=== PATIENT | female | born 1975 | race Hispanic/Latino ===

== ENCOUNTER 2017-06-29 21:16 | Emergency (ER) | payer OTHER, SELFPAY ==
[2017-06-29 21:16] VITALS: BP 141/64; PULSE 87; RESP 14; TEMP 36.6; O2SAT 96; BMI 41.1
--- NOTE | 2017-06-29 21:37 | CT_ITS ---
STUDY: CT ABDOMEN AND PELVIS WITH CONTRAST REASON FOR EXAM: Female, 41 years old. Sharp pain RADIATION DOSAGE (If Supplied By Facility): CTDIvol = ( 15.00 ) mGy, DLP = ( 1305.67 ) mGycm TECHNIQUE: Transaxial images were obtained from the dome of the diaphragm to the symphysis pubis without oral contrast. 100ML ml of Isovue 300 contrast was administered. Sagittal and coronal images were reconstructed. Individualized dose optimization techniques were used for this CT. COMPARISON: April 07, 2015. FINDINGS: The visualized lung bases are unremarkable. The visualized portions of the heart are within normal limits. Normal liver. Possible cholelithiasis. No significant dilatation of extrahepatic biliary system. Normal spleen. Normal pancreas. Normal bilateral adrenal glands. Normal right kidney. Probable parapelvic cysts in the left kidney. Normal visualized stomach. Normal small intestine. Normal colon. The appendix is visualized and appears normal. Normal abdominal aorta. Normal inferior vena cava. Normal retroperitoneum. Normal urinary bladder. Normal uterus. There is a 2.6 cm lipomatous nodule in the left lower pelvis mesentery. Normal abdominal wall. Normal osseous structures. CT/Abdomen/Pelvis W IV Cont ONLY IMPRESSION: Possible cholelithiasis. Parapelvic left renal cysts are suspected. Small lipomatous nodule in the left lower pelvis mesentery. Electronically Signed: Socrates Addison DO at 23:16 EDT Tel [phone], Service support ,
[2017-06-29] MEDS: Ketorolac 30 MG/ML Syringe IV (21:58)
[2017-06-29 21:59] LABS: Bacteria 0 SEEN /hpf (None Seen); Red Blood Cells-Urine 0 SEEN /hpf (0-5)
[2017-06-29 22:01] LABS: Color, Urine Yellow (Yellow); Glucose, Dipstick Normal (Normal); Ketone-Dipstick 5 mg/dl (Negative); Leukocyte Esterase-Dipstick 25 /ul (Negative); Nitrite-Dipstick Negative (Negative); Occult Blood-Urine 25 /ul (Negative); Protein-Dipstick 15 mg/dl (Negative); Urine Bilirubin Dipstick Negative (Negative); Urine Clarity Sl. Cloudy (Clear); Urine Urobilinogen 1 mg/dl (Normal)
[2017-06-29 22:11] LABS: Absolute Lymphocyte Count 2.48 X10^3/ul (0.83-4.51); Absolute Neutrophil Count 7.9 X10^3/uL (2.0-7.7); Basophil# 0.02 X10^3/uL; Basophil% 0.2 % (0-1); Eosinophil# 0.05 X10^3/uL; Eosinophils% 0.5 % (0-5); Hematocrit 38.4 % (37-47); Hemoglobin 11.8 g/dl (12.0-15.0); Lymphocyte # 2.48 X10^3/ul (4.0); Lymphocyte % 22.6 % (19-41); Mean Corp Hgb Conc 30.7 g/gl (32-36); Mean Corpuscular Hgb 26.9 pg (27.0-32.0); Mean Corpuscular Volume 87.7 fL (81-99); Mean Platelet Vol. 9.4 fl (6.2-12.0); Monocyte# 0.54 X10^3/uL; Monocyte% 4.9 % (0-10); Neutrophil # 7.87 X10^3/uL (2.7-7.7); Neutrophil % 71.7 % (47-70); POSITIVE COUNT NO; POSITIVE DIFFERENTIAL NO; POSITIVE MORPHOLOGY NO; Platelet Count 331 K/mm3 (150-450); RBC Distribution Width SD 48.5 fl (35.1-43.9); Red Blood Count 4.38 M/mm3 (4.2-5.4)
[2017-06-29 22:13] LABS: Mucous, Urine 1+ /hpf (<or=2+); Squamous Epithelial Cells - UA 0-5 SEEN /hpf (5-10); White Blood Cells 0-5 SEEN /hpf (0-5)
[2017-06-29 22:26] LABS: Anion Gap 6 (5-15); BUN 16 mg/dL (7-18); BUN/Creat Ratio 16.3 RATIO (10-20); Calcium,Total 8.4 mg/dL (8.5-10.1); Chloride 101 mmol/L (98-107); Creatinine, Serum 0.98 mg/dL (0.55-1.02); EST Glomerular Filtration Rate 66 mL/min (>60); Est Glom Filt Rate - Afr Amer 79 mL/min (>60); Estimated Creatinine Clearance 69.29 ml/min; Glucose 96 mg/dL (74-106); Potassium 3.5 mmol/L (3.5-5.1); Sodium Level 141 mmol/L (136-145)
[2017-06-29 22:33] LABS: Pregnancy, Serum, hCG Quali. NEGATIVE Negative (0-9 Nonpreg)
--- NOTE | 2017-06-29 22:56 | ED.VISSUMM ---
- ER Visit Summary Date of Service: 06/29/17 Chief Complaint: Pelvic pain History of Present Illness: The patient is a 41 F who states that around 3:00 this afternoon she began to have a continuous waxing and waning sharp suprapubic left lower quadrant right lower quadrant abdominal pain. She states it is severe. She had a normal. Approximately 15 days ago. She has no history of ovarian cyst. She has had normal bowel movements. She denies any urinary symptoms. No history of kidney stones. No fevers vomiting. Physical Examination: Afebrile vital signs are stable Gen: Well-nourished well-developed Head: Normocephalic atraumatic Eyes: Perrl EOMI ENT: TMs clear no rhinorrhea moist mucous membranes Neck: Supple no lymphadenopathy no JVD nontender CVS: Regular rate rhythm no murmurs normal S1-S2 Respiratory: No distress clear to auscultation bilaterally chest nontender Abdomen: Soft patient has tenderness to palpation over the lower quadrants of the abdomen out of proportion to the examination nondistended normal bowel sounds no masses Back: Nontender Extremity: Nontender no edema Skin: Normal color no rash Neuro: alert orientated ?3 CN II-XII intact normal strength sensation reflexes gait cerebellar Psych: Normal affect normal mood Test Results: CBC chemistries urinalysis and test were negative. CT abdomen pelvis was obtained. Not demonstrate any obvious pathology to explain her pain. Emergency Department Course and Treatment: Patient received Toradol. Patient received a home pack of [place]. She will follow-up with her primary care physician or gynecology if her pain continues. Impression: 1. Joni This note was generated with [employer] dictation software. It may contain incorrect words, spelling, and punctuation that were not noted in review of the chart prior to signing ED Disposition - Plan for ED Patient: Disposition: Home or Assisted Living Chief Complaint: Abd Pain Instructions: ED Mid Cycle Pain Joni Prescriptions: Hydrocodone Bitart/Apap 5-325 [[place] 5/325] 1 - 2 tab PO Q4H PRN PRN 2 Days #10 tab PRN Reason: Pain Referrals: Jenny Woods CNM [Certified Nurse Early Morning Babysitter] - 1-2 Days if not improving
--- NOTE | 2017-06-29 23:13 | ED.DCSUM_ITS ---
- ER Visit Summary Date of Service: 06/29/17 Chief Complaint: Pelvic pain History of Present Illness: The patient is a 41 F who states that around 3:00 this afternoon she began to have a continuous waxing and waning sharp suprapubic left lower quadrant right lower quadrant abdominal pain. She states it is severe. She had a normal. Approximately 15 days ago. She has no history of ovarian cyst. She has had normal bowel movements. She denies any urinary symptoms. No history of kidney stones. No fevers vomiting. Physical Examination: Afebrile vital signs are stable Gen: Well-nourished well-developed Head: Normocephalic atraumatic Eyes: Perrl EOMI ENT: TMs clear no rhinorrhea moist mucous membranes Neck: Supple no lymphadenopathy no JVD nontender CVS: Regular rate rhythm no murmurs normal S1-S2 Respiratory: No distress clear to auscultation bilaterally chest nontender Abdomen: Soft patient has tenderness to palpation over the lower quadrants of the abdomen out of proportion to the examination nondistended normal bowel sounds no masses Back: Nontender Extremity: Nontender no edema Skin: Normal color no rash Neuro: alert orientated ?3 CN II-XII intact normal strength sensation reflexes gait cerebellar Psych: Normal affect normal mood Test Results: CBC chemistries urinalysis and test were negative. CT abdomen pelvis was obtained. Not demonstrate any obvious pathology to explain her pain. Emergency Department Course and Treatment: Patient received Toradol. Patient received a home pack of [place]. She will follow-up with her primary care physician or gynecology if her pain continues. Impression: 1. Joni This note was generated with [employer] dictation software. It may contain incorrect words, spelling, and punctuation that were not noted in review of the chart prior to signing ED Disposition - Plan for ED Patient: Disposition: Home or Assisted Living Chief Complaint: Abd Pain Instructions: ED Mid Cycle Pain Joni Prescriptions: Hydrocodone Bitart/Apap 5-325 [[place] 5/325] 1 - 2 tab PO Q4H PRN PRN 2 Days #10 tab PRN Reason: Pain Referrals: Jenny Woods CNM [Certified Nurse Movie Critic] - 1-2 Days if not improving
[2017-06-29 23:36] VITALS: BP 136/51; PULSE 73; RESP 16; O2SAT 98
[2017-06-29] MEDS: HYDROcodone Bitartrate/Apap 5/325 Tablet PO (23:39)
== END 2017-06-29 23:41 | disposition home or self-care (01) ==
PROVIDERS: Emergency Provider Emergency Medicine; Family Provider Internal Medicine; PCP Internal Medicine
DX: N94.0 Mittelschmerz (principal); I10 Essential (primary) hypertension
CPT/HCPCS: 74177; 80048; 81001; 84703; 85025; 96374; 99283; Q9967; A4216

== ENCOUNTER 2017-12-29 14:58 | Inpatient (IN) | payer MEDICAID, OTHER, SELFPAY ==
[2017-12-29] VITALS (8 sets, daily range): BP systolic 107–151; BP diastolic 43–85; PULSE 55–64; RESP 14–17; TEMP 36.8–37.1; O2SAT 97–99; BMI 37.8; BMI 37.9
--- NOTE | 2017-12-29 15:23 | EKG12_ITS ---
Test Reason : HEADACHE Blood Pressure : / mmHG Vent. Rate : 057 BPM Atrial Rate : 057 BPM P-R Int : 148 ms QRS Dur : 080 ms QT Int : 418 ms P-R-T Axes : 039 017 017 degrees QTc Int : 406 ms Sinus bradycardia Otherwise normal ECG Confirmed by PAUL HARRIS, DEYA ([id number]), supervising editor trailer KATEY VAZQUEZ ([id number]) on 01/02/2018 2:51:30 PM Referred By: NILTON Confirmed By:DEYA MILLER MD
--- NOTE | 2017-12-29 15:23 | CT_ITS ---
STUDY: CT BRAIN WITHOUT CONTRAST REASON FOR EXAM: Female, 42 years old. Right arm muscle spasm. Headache. RADIATION DOSAGE (If Supplied By Facility): CTDIvol = ( 44.99 ) mGy, DLP = ( 745.49 ) mGycm TECHNIQUE: Transaxial CT imaging of the brain was performed without administration of intravenous contrast material. Individualized dose optimization techniques were used for this CT. COMPARISON: 07/30/2015 FINDINGS: Normal soft tissue structures. Normal calvarium. Normal size ventricles and extra-axial spaces for the patient's age. Normal white matter tracts of the cerebral hemispheres. Normal basal ganglia and thalami. Normal brainstem. Normal cerebellum. There is no intracranial hemorrhage. There are no findings of an acute ischemic infarction. Normal visualized paranasal sinuses. CT/Brain/Head without Contrast IMPRESSION: Normal unenhanced CT scan of the brain. Electronically Signed: Justus Pace DO at 16:11 EDT Tel , Service support ,
[2017-12-29] MEDS: 0.9% Normal Saline 1,000 ML 1000 ML IV (15:41)
[2017-12-29] MEDS: DiphenhydrAMINE 50 MG/ML Syringe 25 MG IV (15:42)
[2017-12-29] MEDS: Ketorolac 30 MG/ML Syringe IV (15:42)
[2017-12-29] MEDS: Metoclopramide 10 MG/2 ML Vial IV (15:42)
[2017-12-29 15:49] LABS: Absolute Neutrophil Count 5.6 X10^3/uL (2.0-7.7); Basophil# 0.02 X10^3/uL; Basophil% 0.3 % (0-1); Eosinophil# 0.04 X10^3/uL; Eosinophils% 0.5 % (0-5); Hematocrit 39.4 % (37-47); Hemoglobin 12.5 g/dl (12.0-15.0); Lymphocyte % 20.9 % (19-41); Mean Corp Hgb Conc 31.7 g/gl (32-36); Mean Corpuscular Hgb 27.9 pg (27.0-32.0); Mean Corpuscular Volume 87.9 fL (81-99); Mean Platelet Vol. 9.9 fl (6.2-12.0); Monocyte# 0.37 X10^3/uL; Monocyte% 4.8 % (0-10); Neutrophil % 73.2 % (47-70); Platelet Count 316 K/mm3 (150-450); RBC Distribution Width SD 44.9 fl (35.1-43.9); Red Blood Count 4.48 M/mm3 (4.2-5.4); White Blood Count 7.7 K/mm3 (4.4-11.0)
[2017-12-29 15:51] LABS: POSITIVE COUNT NO; POSITIVE DIFFERENTIAL NO; POSITIVE MORPHOLOGY NO
--- NOTE | 2017-12-29 16:03 | CT_ITS ---
STUDY: CTA OF THE BRAIN REASON FOR EXAM: Female, 42 years old. Posterior headache RADIATION DOSAGE (If Supplied By Facility): CTDIvol = ( 21.66 ) mGy, DLP = ( 674.81 ) mGycm TECHNIQUE: CT angiography was performed with a multi-detector CT scanner. Data acquisition was obtained from the skull base through the vertex following intravenous administration of 100 ml of Isovue-370. MIP images were reconstructed from the axial data set. Post-processing of the angiographic images was performed, with multiplanar reformation and 3D reconstruction. Individualized dose optimization techniques were used for this CT. COMPARISON: None. FINDINGS: Normal bilateral petrous carotid arteries. Normal right cavernous carotid artery with a normal supraclinoid bifurcation. Normal left cavernous carotid artery with a normal supraclinoid bifurcation. Normal right A1 segments of the anterior cerebral artery. Normal left A1 segments of the anterior cerebral artery. Normal intact anterior communicating artery (ACOM). Normal bilateral A2 segments of the anterior cerebral arteries. Normal right M1 and M2 segments of the middle cerebral arteries, with a normal M1 bifurcation. Normal left M1 and M2 segments of the middle cerebral arteries, with a normal M1 bifurcation. Normal right posterior communicating artery (PCOM). There is non-visualization of the left posterior communicating artery (PCOM). Normal bilateral vertebral arteries. Normal basilar artery with a normal basilar bifurcation. The visualized bilateral superior cerebellar (SCA) arteries are normal. Normal bilateral P1, P2 and visualized P3 segments of the posterior cerebral arteries. There is no demonstrated aneurysm of the squaxin of [place]. There is no demonstrated abnormality of the visualized brain. CT/CTA Head W/WO Contrast IMPRESSION: Normal anatomic variant squaxin of [place] without a demonstrated aneurysm or hemodynamically significant stenosis. Electronically Signed: Justus Pace DO at 18:23 EDT Tel , Service support ,
--- NOTE | 2017-12-29 16:03 | CT_ITS ---
STUDY: CTA NECK WITH CONTRAST REASON FOR EXAM: Female, 42 years old. Posterior headache, hypertension. RADIATION DOSAGE (If Supplied By Facility): CTDIvol = ( 21.66 ) mGy, DLP = ( 674.81 ) mGycm TECHNIQUE: CT angiography with multi-detector data acquisition was performed from the aortic arch to the skull base following intravenous administration of 100CC ml of Isovue 370 contrast. MIP images were reconstructed from the axial data set. Post-processing of the angiographic images was performed, with multiplanar reformation and 3D reconstruction. Individualized dose optimization techniques were used for this CT. COMPARISON: None. FINDINGS: AORTIC ARCH: Normal visualized aortic arch. Normal origins of the brachiocephalic, left common carotid, and left subclavian arteries. RIGHT CAROTID ARTERIES: Normal right common carotid artery (CCA). Normal right common carotid bulb. Normal origin of the right internal carotid (ICA) artery without a hemodynamically significant stenosis. Normal visualized cervical portion of the right internal carotid artery. Normal origin of the right external carotid artery (ECA). LEFT CAROTID ARTERIES: Normal left common carotid artery (CCA). Normal left common carotid bulb. Normal origin of the left internal carotid (ICA) artery without a hemodynamically significant stenosis. Normal visualized cervical portion of the left internal carotid artery. Normal origin of the left external carotid artery (ECA). VERTEBRAL ARTERIES: Normal bilateral vertebral arteries. CT/CTA Neck W/WO Contrast IMPRESSION: Normal bilateral cervical carotid and vertebral arteries. Electronically Signed: Katrina Sotelo MD at 17:31 EDT Tel , Service support ,
[2017-12-29 16:06] LABS: Anion Gap 6 (5-15); BUN 10 mg/dL (7-18); Calcium,Total 9.1 mg/dL (8.5-10.1); Chloride 105 mmol/L (98-107); Creatinine, Serum 0.67 mg/dL (0.55-1.02); EST Glomerular Filtration Rate 102 mL/min (>60); Est Glom Filt Rate - Afr Amer 124 mL/min (>60); Glucose 85 mg/dL (74-106); Potassium 3.5 mmol/L (3.5-5.1); Sodium Level 139 mmol/L (136-145)
[2017-12-29] MEDS: Nalbuphine 10 MG/ML Ampul IV (17:30)
--- NOTE | 2017-12-29 19:56 | ED.VISSUMM ---
- ER Visit Summary Date of Service: 12/29/17 Chief Complaint: [Headache] History of Present Illness: The patient is a 42 F [presents the emergency department complaint of a headache that started around 10 AM this morning. Patient states the headache came on rather suddenly. Patient describes a throbbing to the back part of her head. Patient rates the headache as a 10 out of 10. Had nausea with it but no vomiting. Patient denies any photophobia. Patient is never had a headache like this before. Patient's not had any falls or head injuries. Patient also complains of the right upper arm intermittently twitching for about an hour. Patient also states that after she arrived the emergency department while in triage she had an episode of a sharp stabbing left-sided chest pain that lasted a few minutes then resolved. Patient denies recent travel or surgery. Patient has a history of GERD and sleep apnea.] Physical Examination: [HEENT-PERRLA, EOMI. Cranial nerves II through XII grossly intact. TMs clear. Mucous membranes moist. No adenopathy. Nontoxic-appearing. No nuchal rigidity. Cardiovascular-regular rate and rhythm without murmur or ectopy Lungs-clear to auscultation, chest wall stable without crepitus or subcu emphysema Abdomen-normoactive bowel sounds, soft, nontender, no rebound or rigidity, no peritoneal signs. Neuro [id number] and heel justice testing within normal limits, negative Romberg, negative for drift, fundi benign Extremities-intact ?4, normal range of motion, normal pulses, atraumatic] Test Results: [EKG obtained arrival shows sinus rhythm with a ventricular rate of 57 bpm with no acute ST segment changes. CBC with differential is normal. Chemistries were normal. Troponin was less than 0.015. CT scan of the brain without contrast was normal. CTA of the neck and CT of the brain obtained were both normal.] Emergency Department Course and Treatment: [Patient initially medicated with Reglan, Benadryl, Toradol, and a liter normal same fluid bolus without any relief of pain. Patient was then given Nubain 10 mg IV and had just minimal pain relief with that. Patient was then started on Depakote IV and she has further minimal improvement in her headache and continues to complain of significant headache.] Treatment Plan: [Admit for continued management of her headache] Disposition: [Admit] Impression: [Intractable headache-etiology uncertain] This note was generated with [employer] dictation software. It may contain incorrect words, spelling, and punctuation that were not noted in review of the chart prior to signing ED Disposition - Plan for ED Patient: Chief Complaint: Headache Referrals: Em Santos MD [Primary Care Provider] -
--- NOTE | 2017-12-29 20:04 | PCM.HP.STD ---
Problem List (1) Headache Status: Acute Qualifiers: Headache type: unspecified Headache chronicity pattern: acute headache Intractability: intractable Qualified Code(s): R51 - Headache (2) Obesity (BMI 30-39.9) Status: Chronic (3) Obstructive sleep apnea Status: Chronic (4) Constipation Status: Chronic Qualifiers: Constipation type: unspecified constipation type Qualified Code(s): K59.00 - Constipation, unspecified (5) Depression Status: Chronic Qualifiers: Depression Type: unspecified Qualified Code(s): F32.9 - Major depressive disorder, single episode, unspecified (6) Chronic acquired lymphedema Status: Chronic History of Present Illness Date of Admission: 12/29/17 Chief Complaint: Headache, intractable The patient is a 42 y/o F w/ PMHx: Obesity, GERD, RAFAEL, Chronic LLE lymphedema who presents to the [facility] ED on 12/29/17 with history of onset headache, starting at 10 am this AM, back of head, throbbing, 12/10 in severity rating, noted to have come on suddenly with associated nausea without emesis, moderate photophobia but no phonophobia with no prior marked headache or migraine history and recent injury or recent fall history. Work up in the ED included T 98.7, heart rate 64, BP 151/85, respiratory rate 17, 99% on room air, unremarkable CBC, unremarkable BMP, troponin less than 0.015, CT brain with no acute findings, CTA head and neck unremarkable. In the ED patient administered Depakote, normal saline bolus, Nubain, Reglan, Toradol, Benadryl. From review of records, patient with unremarkable 03/2017 cardiac stress testing. She also had cardiac catheterization in 2016 without any interventional needs and normal appearing ECHO at that time. Patient notes depakote and nubain has helped some with rated headache 12/10-->7/10 currently. Past Medical History Past Medical History (Chronic Problems): Chronic Problems Obesity (BMI 30-39.9) (Chronic) HTN (hypertension) (Chronic) Chronic acquired lymphedema (Chronic) Epistaxis, recurrent (Chronic) Obstructive sleep apnea (Chronic) Constipation (Chronic) Morbid obesity (Chronic) Depression (Chronic) Allergies No Known Allergies Allergy (Verified 12/29/17 14:59) Home Medications: Ambulatory Orders Medication Instructions Recorded Sucralfate 1 gm PO 4X/DAY 08/13/16 Omeprazole 20 mg PO BID 12/29/17 Triamterene/Hydrochlorothiazid 1 tab PO DAILY 12/29/17 [Triamterene-Hctz 37.5-25 mg Tb] Surgical History: - - Bilateral sinus surgery, eye surgery. Psychiatric History: Anxiety, Depression CHIROPRACTOR ASSISTANT History: No pertinent CHIROPRACTOR ASSISTANT history Lives: With Family - Patient was with her mother. Smoking Status: Never smoker Tobacco Use: Non-smoker Alcohol: None Drugs: None - *Family History Maternal History Items: - - Mother with a history of breast cancer and stroke in addition to heart disease. Paternal History Items: - - Paternal family history of diabetes, heart disease, hypertension and leukemia. Review of Systems Constitutional: Reports: Anorexia, Malaise, Weakness, Fatigue. Denies: Chills, Fever, Weight Change HEENT: Reports: Head Aches, - - Light sensitivity.. Denies: Sinus Congestion, Sinus Drainage Cardiovascular: Denies: Chest Pain, Palpitations Respiratory: Denies: Cough, Shortness of breath at rest, Sputum production Gastrointestinal: Denies: Abdominal Pain, Nausea, Vomiting Genitourinary: Denies: Dysuria Musculoskeletal: Denies: Joint Pain, Joint Tenderness Skin: Denies: Rash, Wounds Neurological: Denies: Numbness, Tingling, Focal weakness Psychiatric: Denies: Anxiety, Depression, Homicidal Ideations, Suicidal Ideations Hematologic/ Lymphatic: Denies: Easy Bruising, Easy Bleeding VTE Information - Inpt Only VTE Present on Admission: No VTE Mechan Device Prophylaxis: SCD's VTE Pharm Prophylaxis ordered?: Yes Patient Problems: Active and Suspected Problems Headache (Acute) Subjective: Seated upright in the ED bed, room dark, notes ongoing headache but has improved mildly since initial ED presentation. Objective: Physical Examination: General: awake, alert, oriented x 3 and cooperative, seated upright in the ED bed, room is dark, appears mildly uncomfortable. Skin: normal color, turgor, no icterus, cyanosis. HEENT: AT/NC, EOMI, PERRLA, only dry MM, no carotid bruits or JVD noted. Lungs: CTA bilaterally, moderate effort, mild decrease BL bases, no rales, ronchi or wheezing. Heart: Regular rate and rhythm; no gallop, rub audible. Abdomen: soft, obese, NTTP, ND, normal BS, no HSM. Extremities: no cyanosis, clubbing, mild LLE edema, non-pitting, chronic. Neurological: patient awake, alert, oriented x 3; cognitive function intact; pupils equally reactive to light and accomodation; cranial nerves II-XII grossly normal, moving all 4 extremities, no focal deficits, strength moderately to severely globally decreased secondary to acute presentation, remains mildly photophobic. Psychiatric: affect appears fatigued, no acute evidence of depressive or anxiety feelings. - Physical Exam Vital Signs Temp Pulse Resp BP Pulse Ox 98.7 F 57 L 14 107/43 L 99 12/29/17 14:59 12/29/17 19:00 12/29/17 19:00 12/29/17 19:00 12/29/17 19:00 Oxygen Delivery Method Room Air Weight: 241 lb 2.971 oz Body Mass Index (BMI) 37.8 Laboratory Tests Past 24 Hrs 12/29/17 12/29/17 15:35 15:35 WBC 7.7 RBC 4.48 Hgb 12.5 Hct 39.4 MCV 87.9 MCH 27.9 MCHC 31.7 L RDW 14.0 RDW Differential 44.9 H Plt Count 316 MPV 9.9 Immature Gran % (Auto) 0.300 Neut % (Auto) 73.2 H Lymph % (Auto) 20.9 [place] % (Auto) 4.8 Eos % (Auto) 0.5 Baso % (Auto) 0.3 Absolute Neuts (auto) 5.6 Absolute Lymphs (auto) 1.60 Total Counted Not Reportable Sodium 139 Potassium 3.5 Chloride 105 Carbon Dioxide 28.0 Anion Gap 6 BUN 10 Creatinine 0.67 Estim Creat Clear Calc 104.20 Est GFR (MDRD) Af Amer 124 Est GFR (MDRD) Non-Af 102 BUN/Creatinine Ratio 15.0 Glucose 85 Calcium 9.1 Troponin I < 0.015 Assessment/Plan All Active Problems Headache (Acute) Chest pain (Acute) The patient is a 42 y/o F w/ PMHx: Obesity, GERD, RAFAEL, Chronic LLE lymphedema who presents to the [facility] ED on 12/29/17 with history of onset headache, starting at 10 am this AM, back of head, throbbing, 12/10 in severity rating, noted to have come on suddenly with associated nausea without emesis, moderate photophobia but no phonophobia with no prior marked headache or migraine history and recent injury or recent fall history. (1) Acute Persistent Intractable Headache, ? Migraine: Will admit to PCU, hold narcotic therapy give this may exacerbate migraine headache, initiate IV VPA 500mg Q6 hours, IV Decadron 4mg Q6 hours, IV Toradol 30mg Q6 hours prn and PO Neurontin 100mg TID with meals. Will proceed with MRI of brain. Will administer additionally 1 mg magnesium IV push. Neurology consulted, pending. Will obtain CRP and ESR additionally. (2) Chronic LLE Lymphedema: Notes evaluations prior including vascular, continue home regimen hydrochlorothiazide, SCDs. (3) GERD: Continue home regimen Carafate and omeprazole. (4) Obesity: Weight loss and lifestyle changes encouraged, nutrition consulted. (5) RAFAEL: CPAP q HS. (6) DVT Prophylaxis: SCDs, lovenox. Code Visit Inpatient E&M: 42941 Init Hosp L3
--- NOTE | 2017-12-29 21:03 | MRI_ITS ---
STUDY: MRI BRAIN WITHOUT CONTRAST REASON FOR EXAM: Female, 42 years old. Headache. Hypertension. Right arm spasm. TECHNIQUE: Standardized multiplanar fat and water weighted pulse sequences were obtained. COMPARISON: CT head 03/22/2014 and 12/29/2017. FINDINGS: Normal size of the ventricles and extra-axial spaces for the patient's age. Normal white matter tracts of the supratentorial brain. Normal bilateral basal ganglia. Normal thalami. There is no extra-axial fluid accumulation. Normal flow voids within the major intracranial circulation suggesting patency by spin echo criteria. Normal sella turcica, pituitary gland, infundibular stalk, optic chiasm and hypothalamus. Normal tectal plate and pineal gland. Normal midbrain, ying and medulla. Normal cerebellum. Normal basal cisterns. Normal bilateral temporal bones. Normal bilateral internal auditory canals. No demonstrated orbital abnormality, within the constraints of a routine brain study. Mucous retention cysts versus lobulated mucosal thickening in the floor of the right maxillary antrum. The remaining paranasal sinuses are normal. Normal calvarium and skull base. Normal visualized soft tissue structures. Normal visualized upper cervical spine. MRI/Brain without Contrast IMPRESSION: 1. Normal unenhanced MRI of the brain. 2. Lobulated mucosal thickening in the floor of the right maxillary antrum versus 3 adjacent mucous retention cysts. This is a chronic finding and was also present on CT head of 03/22/2014. Electronically Signed: Javier Burks MD at 8:33 EDT , Service support ,
[2017-12-29 21:20] LABS: Magnesium 2.3 mg/dL (1.6-2.6)
[2017-12-29 21:34] LABS: Erythrocyte Sedimentation Rate 32 mm/hr (0-20)
--- NOTE | 2017-12-29 21:40 | EKG12_ITS ---
Test Reason : Blood Pressure : / mmHG Vent. Rate : 054 BPM Atrial Rate : 054 BPM P-R Int : 162 ms QRS Dur : 086 ms QT Int : 436 ms P-R-T Axes : 039 010 003 degrees QTc Int : 413 ms Sinus bradycardia Confirmed by Bere Martínez ([id number]), advertising editor KATEY VAZQUEZ ([id number]) on 01/02/2018 3:32:01 PM Referred By: Confirmed By:Bere Martínez
[2017-12-29] MEDS: 0.9% Normal Saline 1,000 ML 125 ML IV (22:29)
[2017-12-29] MEDS: Magnesium Sulfate 1 GM in 0.9% Normal Saline 100 ML IV (22:32)
[2017-12-29] MEDS: Sucralfate 1 GM Tablet PO (22:52)
[2017-12-29] MEDS: Gabapentin 100 MG Capsule PO (22:52)
[2017-12-30] VITALS (12 sets, daily range): BP systolic 111–138; BP diastolic 45–80; PULSE 50–85; RESP 16–18; TEMP 36.7–37.1; O2SAT 94–97
[2017-12-30] MEDS: Ketorolac 30 MG/ML Syringe IV ×5 (00:59→23:13)
--- NOTE | 2017-12-30 01:02 | CPS ---
set at 8 cm h2o per pts request.
[2017-12-30] MEDS: 0.9% NaCl Peripheral Flush Adult/Peds IV ×2 (05:20→23:13)
[2017-12-30 05:30] LABS: Hematocrit 37.2 % (37-47); Hemoglobin 11.7 g/dl (12.0-15.0); Mean Corp Hgb Conc 31.5 g/gl (32-36); Mean Corpuscular Hgb 27.5 pg (27.0-32.0); Mean Corpuscular Volume 87.5 fL (81-99); Platelet Count 274 K/mm3 (150-450); RBC Distribution Width SD 44.5 fl (35.1-43.9); Red Blood Count 4.25 M/mm3 (4.2-5.4)
[2017-12-30 05:35] LABS: Scan Indicated on CBC? Y/N NO
[2017-12-30 05:50] LABS: Internal QC Validated? YES +Cl - CLEAR BKGD; Pregnancy, Urine Negative Negative
[2017-12-30 05:54] LABS: Anion Gap 8 (5-15); BUN 12 mg/dL (7-18); BUN/Creat Ratio 17.2 RATIO (10-20); Calcium,Total 8.1 mg/dL (8.5-10.1); Chloride 108 mmol/L (98-107); EST Glomerular Filtration Rate 97 mL/min (>60); Est Glom Filt Rate - Afr Amer 117 mL/min (>60); Estimated Creatinine Clearance 96.01 ml/min; Glucose 119 mg/dL (74-106); Potassium 4.5 mmol/L (3.5-5.1); Sodium Level 140 mmol/L (136-145)
[2017-12-30] MEDS: Sucralfate 1 GM Tablet PO ×4 (06:38→21:15)
[2017-12-30] MEDS: Gabapentin 100 MG Capsule PO ×3 (08:47→17:39)
[2017-12-30] MEDS: Triamterene 37.5MG/Hctz 25MG Capsule 1 CAP PO (08:48)
[2017-12-30] MEDS: Pantoprazole Sodium 20 MG Tablet PO ×2 (08:48→21:15)
[2017-12-30] MEDS: Enoxaparin 40 MG/0.4 ML Syringe SC (08:48)
--- NOTE | 2017-12-30 11:13 | PCM.CONS.GEN ---
Problem List (1) Headache Status: Acute Qualifiers: Headache type: unspecified Headache chronicity pattern: acute headache Intractability: intractable Qualified Code(s): R51 - Headache Reason for Consult Date of Consultation: 12/30/17 Reason for Consultation: Headache History of Present Illness: The patient is a 42 year old F with PMH HTN, RAFAEL, depression, morbid obesity admitted with LIM. Per patient she started having LIM since yesterday morning (12/29/17), sudden onset, occipital, with some mild photophobia, no phonophobia, denies any visual disturbances, or vision loss, per patient LIM is severe, throbbing and stabbing, with nausea. She denies any fever, sick contacts, confusion, witnessed seizures, denies any focal motor weakness, sensory loss or speech disturbances. She has been on Depakote since admission and her LIM has improved from more than 10 intensity to about [address] head/CTA head/neck done on admission did not report any acute changes or occlusion/stenosis or aneurysm, MRI brain reported nothing acute. Per patient she is undergoing divorce procedure at present and is stressed out from the same. Denies any vision loss, jaw claudication or temporal tenderness. [] Past Medical History Past Medical History (Chronic Problems): Chronic Problems Obesity (BMI 30-39.9) (Chronic) HTN (hypertension) (Chronic) Chronic acquired lymphedema (Chronic) Epistaxis, recurrent (Chronic) Obstructive sleep apnea (Chronic) Constipation (Chronic) Morbid obesity (Chronic) Depression (Chronic) Allergies No Known Allergies Allergy (Verified 12/29/17 14:59) Home Medications: Ambulatory Orders Medication Instructions Recorded Sucralfate 1 gm PO 4X/DAY 08/13/16 Omeprazole 20 mg PO BID 12/29/17 Triamterene/Hydrochlorothiazid 1 tab PO DAILY 12/29/17 [Triamterene-Hctz 37.5-25 mg Tb] Surgical History: - - Bilateral sinus surgery, eye surgery. Psychiatric History: Anxiety, Depression PRE SCHOOL MANAGER History: No pertinent PRE SCHOOL MANAGER history Lives: With Family - Patient was with her mother. Smoking Status: Never smoker Tobacco Use: Non-smoker Alcohol: None Drugs: None - *Family History Maternal History Items: - - Mother with a history of breast cancer and stroke in addition to heart disease. Paternal History Items: - - Paternal family history of diabetes, heart disease, hypertension and leukemia. Review of Systems Constitutional: Reports: - - complete ROS negative except as documented in HPI Patient Problems: Active and Suspected Problems Headache (Acute) - Physical Exam General: Alert HEENT: Normocephalic Neck: Supple Lungs: Normal air movement Cardiovascular: Normal S1, Normal S2 Abdomen: Bowel Sounds Present Extremities: No cyanosis Skin: No rashes Neurological: - - consious, alert, AoAx3, CN 2-12 grossly intact, power 5/5 all 4 extremities, no sensory loss, no cerebellar signs, Reflexes + B/L B/S/T/K/A, gait deferred, fundus not visualized, No NR, No Kernig's sign or Brudzincki's sign at present. Psych/Mental Status: Normal Affect Vital Signs Temp Pulse Resp BP Pulse Ox 98.0 F 53 L 18 124/61 H 97 12/30/17 05:10 12/30/17 06:54 12/30/17 05:10 12/30/17 05:10 12/30/17 05:10 Oxygen Delivery Method Room Air Weight: 109.6 kg Body Mass Index (BMI) 37.9 Intake and Output for Last 24 Hours 12/28/17 12/29/17 12/30/17 23:59 23:59 23:59 Intake Total 240 / 240 660 / 660 Balance 240 / 240 660 / 660 Laboratory Tests Past 24 Hrs 12/29/17 12/29/17 12/29/17 15:35 15:35 15:35 WBC 7.7 RBC 4.48 Hgb 12.5 Hct 39.4 MCV 87.9 MCH 27.9 MCHC 31.7 L RDW 14.0 RDW Differential 44.9 H Plt Count 316 MPV 9.9 Immature Gran % (Auto) 0.300 Neut % (Auto) 73.2 H Lymph % (Auto) 20.9 [place] % (Auto) 4.8 Eos % (Auto) 0.5 Baso % (Auto) 0.3 Absolute Neuts (auto) 5.6 Absolute Lymphs (auto) 1.60 Total Counted Not Reportable ESR Sodium 139 Potassium 3.5 Chloride 105 Carbon Dioxide 28.0 Anion Gap 6 BUN 10 Creatinine 0.67 Estim Creat Clear Calc 104.20 Est GFR (MDRD) Af Amer 124 Est GFR (MDRD) Non-Af 102 BUN/Creatinine Ratio 15.0 Glucose 85 Calcium 9.1 Magnesium 2.3 Troponin I < 0.015 C-React Prot Ext Range Urine Test 12/29/17 12/29/17 12/30/17 15:35 15:35 05:04 WBC 6.0 RBC 4.25 Hgb 11.7 L Hct 37.2 MCV 87.5 MCH 27.5 MCHC 31.5 L RDW 14.0 RDW Differential 44.5 H Plt Count 274 MPV 10.0 Immature Gran % (Auto) Neut % (Auto) Lymph % (Auto) [place] % (Auto) Eos % (Auto) Baso % (Auto) Absolute Neuts (auto) Absolute Lymphs (auto) Total Counted ESR 32 H Sodium Potassium Chloride Carbon Dioxide Anion Gap BUN Creatinine Estim Creat Clear Calc Est GFR (MDRD) Af Amer Est GFR (MDRD) Non-Af BUN/Creatinine Ratio Glucose Calcium Magnesium Troponin I C-React Prot Ext Range 12.40 H Urine Test 12/30/17 12/30/17 05:04 05:35 WBC RBC Hgb Hct MCV MCH MCHC RDW RDW Differential Plt Count MPV Immature Gran % (Auto) Neut % (Auto) Lymph % (Auto) [place] % (Auto) Eos % (Auto) Baso % (Auto) Absolute Neuts (auto) Absolute Lymphs (auto) Total Counted ESR Sodium 140 Potassium 4.5 Chloride 108 H Carbon Dioxide 24.0 Anion Gap 8 BUN 12 Creatinine 0.70 Estim Creat Clear Calc 96.01 Est GFR (MDRD) Af Amer 117 Est GFR (MDRD) Non-Af 97 BUN/Creatinine Ratio 17.2 Glucose 119 H Calcium 8.1 L Magnesium Troponin I C-React Prot Ext Range Urine Test Negative Assessment/Plan All Active Problems Headache (Acute) Chest pain (Acute) The patient is a 42 year old F with PMH HTN, RAFAEL, depression, morbid obesity admitted with LIM. Per patient she started having LIM since yesterday morning (12/29/17), sudden onset, occipital, with some mild photophobia, no phonophobia, denies any visual disturbances, or vision loss, per patient LIM is severe, throbbing and stabbing, with nausea. She denies any fever, sick contacts, confusion, witnessed seizures, denies any focal motor weakness, sensory loss or speech disturbances. She has been on Depakote since admission and her LIM has improved from more than 10 intensity to about [address] head/CTA head/neck done on admission did not report any acute changes or occlusion/stenosis or aneurysm, MRI brain reported nothing acute. Per patient she is undergoing divorce procedure at present and is stressed out from the same. Denies any vision loss, jaw claudication or temporal tenderness. Impression Headache-? Cause Plan -Check MRV -MRI and CT report reviewed -Labs reviewed. ESR 32, CRP 12.4 -On Depacon 500 mg IV q 6 hrly. Trial for 24-48 hrs -On Decadron 4 mg IV q 6 hrly. Trial for 24-48 hrs -On Toradol 30 mg IV q 6 hrly PRN LIM, trial for 24-48 hrs -Trial of Amitriptyline 25 mg PO q hs. Denies any suicidal ideation at present. -Received one dose of Magnesium sulphate 1 g. Will repeat 1 more dose. -Avoid narcotics -If LIM persists and does not improve then may need to check LP -Check Lymes ab -Ophthalmology consult for fundus evaluation -GI/DVT prophylaxis -Fall precautions -Further medical management per primary team -Neurology follow up as outpatient in 6 weeks -Please call with questions if any -Thank you for allowing us to participate in patient's care and management I spent 60 minutes taking history,doing physical examination, reviewing medical records, coordinating care and counseling the patient. Code Visit Inpatient E&M: 91523 Init Hosp L3
[2017-12-30] MEDS: 0.9% Normal Saline 1,000 ML 125 ML IV ×2 (11:30→23:13)
--- NOTE | 2017-12-30 11:49 | MRI_ITS ---
STUDY: EXAMINATION - MRV BRAIN WITHOUT CONTRAST REASON FOR EXAM: Female, 42 years old. Headaches. TECHNIQUE: 3D [id number] (TOF) imaging was performed in a adrien MRI scanner. COMPARISON: None. FINDINGS: Normal flow within the superior sagittal sinus. Normal flow within the superficial cortical veins. Normal flow within the paired internal cerebral veins, vein of Chuckie and straight sinus. Normal flow within the bilateral transverse and sigmoid sinuses. Normal flow within the bilateral jugular bulbs. MRI/MRV Head Without Contrast IMPRESSION: Normal unenhanced MRV of the brain. Electronically Signed: Katrina Sotelo MD at 16:06 EDT Tel , Service support ,
--- NOTE | 2017-12-30 12:18 | CASEMGMT ---
SW spoke with patient. She said she is self pay. She sees a [facility] physician and receives [facility] financial assistance. SW asked if she has been able to afford her medications and she was not able to finish as the physician walked into the room. SW will check back with patient. Robina BRAGA MSW
--- NOTE | 2017-12-30 12:34 | PCM.PROGNOTE ---
<Kiera Wang - Last Filed: 12/30/17 12:47> Patient Problems: Active and Suspected Problems Headache (Acute) Subjective: Patient seen and examined. States headache is not improved. Denies visual changes. Denies numbness, tingling, weakness. - Physical Exam General: Alert, Oriented x3, Cooperative, No apparent distress HEENT: Atraumatic, PERRLA, EOMI, Normocephalic Neck: Supple, No JVD, Negative Carotid Bruits Lungs: Clear to auscultation, Normal air movement Cardiovascular: Regular rate, Regular Rhythm, Normal S1, Normal S2, No murmurs Abdomen: Bowel Sounds Present, Soft, Non Tender, Non-Distended Extremities: No clubbing, No cyanosis, No edema, Capillary Refill Less than 3 Seconds Skin: No rashes, No breakdown Musculoskeletal: No Tenderness to Palpation of Joints or Extremities Neurological: Cranial nerves II-XII grossly intact, Neuro grossly intact Psych/Mental Status: Normal Affect, Appropriate Vital Signs Temp Pulse Resp BP Pulse Ox 98.2 F 74 16 136/47 H 96 12/30/17 11:10 12/30/17 11:10 12/30/17 11:10 12/30/17 11:10 12/30/17 11:20 Oxygen Delivery Method Room Air Weight: 241 lb 10.026 oz Body Mass Index (BMI) 37.9 Intake and Output for Last 24 Hours 12/28/17 12/29/17 12/30/17 23:59 23:59 23:59 Intake Total 240 / 240 1284 / 1284 Balance 240 / 240 1284 / 1284 Laboratory Tests Past 24 Hrs 12/29/17 12/29/17 12/29/17 15:35 15:35 15:35 WBC 7.7 RBC 4.48 Hgb 12.5 Hct 39.4 MCV 87.9 MCH 27.9 MCHC 31.7 L RDW 14.0 RDW Differential 44.9 H Plt Count 316 MPV 9.9 Immature Gran % (Auto) 0.300 Neut % (Auto) 73.2 H Lymph % (Auto) 20.9 [place] % (Auto) 4.8 Eos % (Auto) 0.5 Baso % (Auto) 0.3 Absolute Neuts (auto) 5.6 Absolute Lymphs (auto) 1.60 Total Counted Not Reportable ESR Sodium 139 Potassium 3.5 Chloride 105 Carbon Dioxide 28.0 Anion Gap 6 BUN 10 Creatinine 0.67 Estim Creat Clear Calc 104.20 Est GFR (MDRD) Af Amer 124 Est GFR (MDRD) Non-Af 102 BUN/Creatinine Ratio 15.0 Glucose 85 Calcium 9.1 Magnesium 2.3 Troponin I < 0.015 C-React Prot Ext Range Urine Test 12/29/17 12/29/17 12/30/17 15:35 15:35 05:04 WBC 6.0 RBC 4.25 Hgb 11.7 L Hct 37.2 MCV 87.5 MCH 27.5 MCHC 31.5 L RDW 14.0 RDW Differential 44.5 H Plt Count 274 MPV 10.0 Immature Gran % (Auto) Neut % (Auto) Lymph % (Auto) [place] % (Auto) Eos % (Auto) Baso % (Auto) Absolute Neuts (auto) Absolute Lymphs (auto) Total Counted ESR 32 H Sodium Potassium Chloride Carbon Dioxide Anion Gap BUN Creatinine Estim Creat Clear Calc Est GFR (MDRD) Af Amer Est GFR (MDRD) Non-Af BUN/Creatinine Ratio Glucose Calcium Magnesium Troponin I C-React Prot Ext Range 12.40 H Urine Test 12/30/17 12/30/17 05:04 05:35 WBC RBC Hgb Hct MCV MCH MCHC RDW RDW Differential Plt Count MPV Immature Gran % (Auto) Neut % (Auto) Lymph % (Auto) [place] % (Auto) Eos % (Auto) Baso % (Auto) Absolute Neuts (auto) Absolute Lymphs (auto) Total Counted ESR Sodium 140 Potassium 4.5 Chloride 108 H Carbon Dioxide 24.0 Anion Gap 8 BUN 12 Creatinine 0.70 Estim Creat Clear Calc 96.01 Est GFR (MDRD) Af Amer 117 Est GFR (MDRD) Non-Af 97 BUN/Creatinine Ratio 17.2 Glucose 119 H Calcium 8.1 L Magnesium Troponin I C-React Prot Ext Range Urine Test Negative Medical Necessity - Tobacco Use Smoking Status: Never smoker Tobacco Use: Non-smoker Assessment/Plan All Active Problems Headache (Acute) Chest pain (Acute) 1. Intractable headache- not improved. Neuro consulted. Avoid narcotics. MRI negative. Continue Decadron 500 IV every 6, Depakote 500 mg IV every 6, Toradol 30 mg IV every 6. Started on low-dose Neurontin on admission. Received mag sulfate x2. MRV head ordered. CRP 12.4. ESR 32. Anticipate discharge tomorrow if improvement of headache. Follow-up with neurology in 6 weeks as outpatient. Ophthalmology follow up as outpatient. 2. Chronic LLE lymphedema-continue home hydrochlorthiazide regimen. 3. GERD-continue home PPI and Carafate. 4. Obstructive sleep apnea-CPAP nightly. 5. Obesity- Encourage diet and lifestyle modifications. Nutrition consult. DVT prophylaxis-Lovenox subcu, SCDs. This patient was seen by CHARLENE Mg under the supervision of Dr. Nassar. <Arjun Nassar - Last Filed: 12/30/17 15:37> Subjective: Seen and examined. Patient complain of headache which is mainly occipital region. Patient denies chronic headache and she had first-time this kind of severe headache. She denies family history of chronic headaches/migraine headache. - Physical Exam General: Alert, Oriented x3, Cooperative HEENT: Atraumatic, PERRLA, EOMI, Normocephalic Neck: Supple, No JVD, Negative Carotid Bruits Lungs: Clear to auscultation, Normal air movement Cardiovascular: Regular rate, Regular Rhythm, Normal S1, Normal S2, No murmurs Abdomen: Bowel Sounds Present, Soft, Non Tender, Non-Distended Extremities: No edema, Capillary Refill Less than 3 Seconds Skin: No rashes, No breakdown Musculoskeletal: No Tenderness to Palpation of Joints or Extremities Neurological: Cranial nerves II-XII grossly intact Psych/Mental Status: Normal Affect, Appropriate Vital Signs Temp Pulse Resp BP Pulse Ox 98.2 F 85 16 136/47 H 96 12/30/17 11:10 12/30/17 15:04 12/30/17 11:10 12/30/17 11:10 12/30/17 11:20 Oxygen Delivery Method Room Air Weight: 241 lb 10.026 oz Body Mass Index (BMI) 37.9 Intake and Output for Last 24 Hours 12/28/17 12/29/17 12/30/17 23:59 23:59 23:59 Intake Total 240 / 240 1284 / 1284 Balance 240 / 240 1284 / 1284 Laboratory Tests Past 24 Hrs 12/29/17 12/29/17 12/29/17 15:35 15:35 15:35 WBC 7.7 RBC 4.48 Hgb 12.5 Hct 39.4 MCV 87.9 MCH 27.9 MCHC 31.7 L RDW 14.0 RDW Differential 44.9 H Plt Count 316 MPV 9.9 Immature Gran % (Auto) 0.300 Neut % (Auto) 73.2 H Lymph % (Auto) 20.9 [place] % (Auto) 4.8 Eos % (Auto) 0.5 Baso % (Auto) 0.3 Absolute Neuts (auto) 5.6 Absolute Lymphs (auto) 1.60 Total Counted Not Reportable ESR Sodium 139 Potassium 3.5 Chloride 105 Carbon Dioxide 28.0 Anion Gap 6 BUN 10 Creatinine 0.67 Estim Creat Clear Calc 104.20 Est GFR (MDRD) Af Amer 124 Est GFR (MDRD) Non-Af 102 BUN/Creatinine Ratio 15.0 Glucose 85 Calcium 9.1 Magnesium 2.3 Troponin I < 0.015 C-React Prot Ext Range Urine Test 12/29/17 12/29/17 12/30/17 15:35 15:35 05:04 WBC 6.0 RBC 4.25 Hgb 11.7 L Hct 37.2 MCV 87.5 MCH 27.5 MCHC 31.5 L RDW 14.0 RDW Differential 44.5 H Plt Count 274 MPV 10.0 Immature Gran % (Auto) Neut % (Auto) Lymph % (Auto) [place] % (Auto) Eos % (Auto) Baso % (Auto) Absolute Neuts (auto) Absolute Lymphs (auto) Total Counted ESR 32 H Sodium Potassium Chloride Carbon Dioxide Anion Gap BUN Creatinine Estim Creat Clear Calc Est GFR (MDRD) Af Amer Est GFR (MDRD) Non-Af BUN/Creatinine Ratio Glucose Calcium Magnesium Troponin I C-React Prot Ext Range 12.40 H Urine Test 12/30/17 12/30/17 05:04 05:35 WBC RBC Hgb Hct MCV MCH MCHC RDW RDW Differential Plt Count MPV Immature Gran % (Auto) Neut % (Auto) Lymph % (Auto) [place] % (Auto) Eos % (Auto) Baso % (Auto) Absolute Neuts (auto) Absolute Lymphs (auto) Total Counted ESR Sodium 140 Potassium 4.5 Chloride 108 H Carbon Dioxide 24.0 Anion Gap 8 BUN 12 Creatinine 0.70 Estim Creat Clear Calc 96.01 Est GFR (MDRD) Af Amer 117 Est GFR (MDRD) Non-Af 97 BUN/Creatinine Ratio 17.2 Glucose 119 H Calcium 8.1 L Magnesium Troponin I C-React Prot Ext Range Urine Test Negative Assessment/Plan This patient was seen in conjunction with Kiera SINGH. I have independently interviewed and examined the patient and reviewed pertinent history, examination findings, laboratory and plan of management. I have reviewed the note and agree with the documented findings with the few additional points. In brief, patient is admitted for intractable headache, exact etiology unclear. She denies history of chronic headache. Has associated mild photophobia. Patient was seen by neurologist, Dr. Osuna. CT head, CTA of head and neck are normal. Brain MRI, unenhanced also reported normal. MRV ordered by Dr. Osuna The patient is started on IV Depakote and Decadron. Also on Toradol. Patient also received magnesium sulfate. I have discussed my assessment with BICYCLE REPAIRERKiera and orders have been reviewed. Clinical Impression(s) from Imaging Studies Brain CT 12/29/17 15:23 IMPRESSION: Normal unenhanced CT scan of the brain. Head CTA 12/29/17 16:03 IMPRESSION: Normal anatomic variant [place] of [place] without a demonstrated aneurysm or hemodynamically significant stenosis. Neck CTA 12/29/17 16:03 IMPRESSION: Normal bilateral cervical carotid and vertebral arteries. Brain MRI 12/29/17 21:03 IMPRESSION: 1. Normal unenhanced MRI of the brain. 2. Lobulated mucosal thickening in the floor of the right maxillary antrum versus 3 adjacent mucous retention cysts. This is a chronic finding and was also present on CT head of 03/22/2014. Code Visit Inpatient E&M: 63394 Subs Hosp L3
--- NOTE | 2017-12-30 12:41 | PN_ITS ---
<Kiera Wang - Last Filed: 12/30/17 12:47> Patient Problems: Active and Suspected Problems Headache (Acute) Subjective: Patient seen and examined. States headache is not improved. Denies visual changes. Denies numbness, tingling, weakness. - Physical Exam General: Alert, Oriented x3, Cooperative, No apparent distress HEENT: Atraumatic, PERRLA, EOMI, Normocephalic Neck: Supple, No JVD, Negative Carotid Bruits Lungs: Clear to auscultation, Normal air movement Cardiovascular: Regular rate, Regular Rhythm, Normal S1, Normal S2, No murmurs Abdomen: Bowel Sounds Present, Soft, Non Tender, Non-Distended Extremities: No clubbing, No cyanosis, No edema, Capillary Refill Less than 3 Seconds Skin: No rashes, No breakdown Musculoskeletal: No Tenderness to Palpation of Joints or Extremities Neurological: Cranial nerves II-XII grossly intact, Neuro grossly intact Psych/Mental Status: Normal Affect, Appropriate Vital Signs Temp Pulse Resp BP Pulse Ox 98.2 F 74 16 136/47 H 96 12/30/17 11:10 12/30/17 11:10 12/30/17 11:10 12/30/17 11:10 12/30/17 11:20 Oxygen Delivery Method Room Air Weight: 241 lb 10.026 oz Body Mass Index (BMI) 37.9 Intake and Output for Last 24 Hours 12/28/17 12/29/17 12/30/17 23:59 23:59 23:59 Intake Total 240 / 240 1284 / 1284 Balance 240 / 240 1284 / 1284 Laboratory Tests Past 24 Hrs 12/29/17 12/29/17 12/29/17 15:35 15:35 15:35 WBC 7.7 RBC 4.48 Hgb 12.5 Hct 39.4 MCV 87.9 MCH 27.9 MCHC 31.7 L RDW 14.0 RDW Differential 44.9 H Plt Count 316 MPV 9.9 Immature Gran % (Auto) 0.300 Neut % (Auto) 73.2 H Lymph % (Auto) 20.9 [place] % (Auto) 4.8 Eos % (Auto) 0.5 Baso % (Auto) 0.3 Absolute Neuts (auto) 5.6 Absolute Lymphs (auto) 1.60 Total Counted Not Reportable ESR Sodium 139 Potassium 3.5 Chloride 105 Carbon Dioxide 28.0 Anion Gap 6 BUN 10 Creatinine 0.67 Estim Creat Clear Calc 104.20 Est GFR (MDRD) Af Amer 124 Est GFR (MDRD) Non-Af 102 BUN/Creatinine Ratio 15.0 Glucose 85 Calcium 9.1 Magnesium 2.3 Troponin I < 0.015 C-React Prot Ext Range Urine Test 12/29/17 12/29/17 12/30/17 15:35 15:35 05:04 WBC 6.0 RBC 4.25 Hgb 11.7 L Hct 37.2 MCV 87.5 MCH 27.5 MCHC 31.5 L RDW 14.0 RDW Differential 44.5 H Plt Count 274 MPV 10.0 Immature Gran % (Auto) Neut % (Auto) Lymph % (Auto) [place] % (Auto) Eos % (Auto) Baso % (Auto) Absolute Neuts (auto) Absolute Lymphs (auto) Total Counted ESR 32 H Sodium Potassium Chloride Carbon Dioxide Anion Gap BUN Creatinine Estim Creat Clear Calc Est GFR (MDRD) Af Amer Est GFR (MDRD) Non-Af BUN/Creatinine Ratio Glucose Calcium Magnesium Troponin I C-React Prot Ext Range 12.40 H Urine Test 12/30/17 12/30/17 05:04 05:35 WBC RBC Hgb Hct MCV MCH MCHC RDW RDW Differential Plt Count MPV Immature Gran % (Auto) Neut % (Auto) Lymph % (Auto) [place] % (Auto) Eos % (Auto) Baso % (Auto) Absolute Neuts (auto) Absolute Lymphs (auto) Total Counted ESR Sodium 140 Potassium 4.5 Chloride 108 H Carbon Dioxide 24.0 Anion Gap 8 BUN 12 Creatinine 0.70 Estim Creat Clear Calc 96.01 Est GFR (MDRD) Af Amer 117 Est GFR (MDRD) Non-Af 97 BUN/Creatinine Ratio 17.2 Glucose 119 H Calcium 8.1 L Magnesium Troponin I C-React Prot Ext Range Urine Test Negative Medical Necessity - Tobacco Use Smoking Status: Never smoker Tobacco Use: Non-smoker Assessment/Plan All Active Problems Headache (Acute) Chest pain (Acute) 1. Intractable headache- not improved. Neuro consulted. Avoid narcotics. MRI negative. Continue Decadron 500 IV every 6, Depakote 500 mg IV every 6, Toradol 30 mg IV every 6. Started on low-dose Neurontin on admission. Received mag sulfate x2. MRV head ordered. CRP 12.4. ESR 32. Anticipate discharge tomorrow if improvement of headache. Follow-up with neurology in 6 weeks as outpatient. Ophthalmology follow up as outpatient. 2. Chronic LLE lymphedema-continue home hydrochlorthiazide regimen. 3. GERD-continue home PPI and Carafate. 4. Obstructive sleep apnea-CPAP nightly. 5. Obesity- Encourage diet and lifestyle modifications. Nutrition consult. DVT prophylaxis-Lovenox subcu, SCDs. This patient was seen by CHARLENE Mg under the supervision of Dr. Kimberly lr. <CesarioArjun - Last Filed: 12/30/17 15:37> Subjective: Seen and examined. Patient complain of headache which is mainly occipital region. Patient denies chronic headache and she had first-time this kind of severe headache. She denies family history of chronic headaches/migraine headache. - Physical Exam General: Alert, Oriented x3, Cooperative HEENT: Atraumatic, PERRLA, EOMI, Normocephalic Neck: Supple, No JVD, Negative Carotid Bruits Lungs: Clear to auscultation, Normal air movement Cardiovascular: Regular rate, Regular Rhythm, Normal S1, Normal S2, No murmurs Abdomen: Bowel Sounds Present, Soft, Non Tender, Non-Distended Extremities: No edema, Capillary Refill Less than 3 Seconds Skin: No rashes, No breakdown Musculoskeletal: No Tenderness to Palpation of Joints or Extremities Neurological: Cranial nerves II-XII grossly intact Psych/Mental Status: Normal Affect, Appropriate Vital Signs Temp Pulse Resp BP Pulse Ox 98.2 F 85 16 136/47 H 96 12/30/17 11:10 12/30/17 15:04 12/30/17 11:10 12/30/17 11:10 12/30/17 11:20 Oxygen Delivery Method Room Air Weight: 241 lb 10.026 oz Body Mass Index (BMI) 37.9 Intake and Output for Last 24 Hours 12/28/17 12/29/17 12/30/17 23:59 23:59 23:59 Intake Total 240 / 240 1284 / 1284 Balance 240 / 240 1284 / 1284 Laboratory Tests Past 24 Hrs 12/29/17 12/29/17 12/29/17 15:35 15:35 15:35 WBC 7.7 RBC 4.48 Hgb 12.5 Hct 39.4 MCV 87.9 MCH 27.9 MCHC 31.7 L RDW 14.0 RDW Differential 44.9 H Plt Count 316 MPV 9.9 Immature Gran % (Auto) 0.300 Neut % (Auto) 73.2 H Lymph % (Auto) 20.9 [place] % (Auto) 4.8 Eos % (Auto) 0.5 Baso % (Auto) 0.3 Absolute Neuts (auto) 5.6 Absolute Lymphs (auto) 1.60 Total Counted Not Reportable ESR Sodium 139 Potassium 3.5 Chloride 105 Carbon Dioxide 28.0 Anion Gap 6 BUN 10 Creatinine 0.67 Estim Creat Clear Calc 104.20 Est GFR (MDRD) Af Amer 124 Est GFR (MDRD) Non-Af 102 BUN/Creatinine Ratio 15.0 Glucose 85 Calcium 9.1 Magnesium 2.3 Troponin I < 0.015 C-React Prot Ext Range Urine Test 12/29/17 12/29/17 12/30/17 15:35 15:35 05:04 WBC 6.0 RBC 4.25 Hgb 11.7 L Hct 37.2 MCV 87.5 MCH 27.5 MCHC 31.5 L RDW 14.0 RDW Differential 44.5 H Plt Count 274 MPV 10.0 Immature Gran % (Auto) Neut % (Auto) Lymph % (Auto) [place] % (Auto) Eos % (Auto) Baso % (Auto) Absolute Neuts (auto) Absolute Lymphs (auto) Total Counted ESR 32 H Sodium Potassium Chloride Carbon Dioxide Anion Gap BUN Creatinine Estim Creat Clear Calc Est GFR (MDRD) Af Amer Est GFR (MDRD) Non-Af BUN/Creatinine Ratio Glucose Calcium Magnesium Troponin I C-React Prot Ext Range 12.40 H Urine Test 12/30/17 12/30/17 05:04 05:35 WBC RBC Hgb Hct MCV MCH MCHC RDW RDW Differential Plt Count MPV Immature Gran % (Auto) Neut % (Auto) Lymph % (Auto) [place] % (Auto) Eos % (Auto) Baso % (Auto) Absolute Neuts (auto) Absolute Lymphs (auto) Total Counted ESR Sodium 140 Potassium 4.5 Chloride 108 H Carbon Dioxide 24.0 Anion Gap 8 BUN 12 Creatinine 0.70 Estim Creat Clear Calc 96.01 Est GFR (MDRD) Af Amer 117 Est GFR (MDRD) Non-Af 97 BUN/Creatinine Ratio 17.2 Glucose 119 H Calcium 8.1 L Magnesium Troponin I C-React Prot Ext Range Urine Test Negative Assessment/Plan This patient was seen in conjunction with Kiera SINGH. I have independently interviewed and examined the patient and reviewed pertinent history, examination findings, laboratory and plan of management. I have reviewed the note and agree with the documented findings with the few additional points. In brief, patient is admitted for intractable headache, exact etiology unclear. She denies history of chronic headache. Has associated mild photophobia. Patient was seen by neurologist, Dr. Osuna. CT head, CTA of head and neck are normal. Brain MRI, unenhanced also reported normal. MRV ordered by Dr. Osuna The patient is started on IV Depakote and Decadron. Also on Toradol. Patient also received magnesium sulfate. I have discussed my assessment with [facility] and orders have been reviewed. Clinical Impression(s) from Imaging Studies Brain CT 12/29/17 15:23 IMPRESSION: Normal unenhanced CT scan of the brain. Head CTA 12/29/17 16:03 IMPRESSION: Normal anatomic variant [place] without a demonstrated aneurysm or hemodynamically significant stenosis. Neck CTA 12/29/17 16:03 IMPRESSION: Normal bilateral cervical carotid and vertebral arteries. Brain MRI 12/29/17 21:03 IMPRESSION: 1. Normal unenhanced MRI of the brain. 2. Lobulated mucosal thickening in the floor of the right maxillary antrum versus 3 adjacent mucous retention cysts. This is a chronic finding and was also present on CT head of 03/22/2014. Code Visit Inpatient E&M: 97128 Subs Hosp L3
[2017-12-30] MEDS: Magnesium Sulfate 1 GM in 0.9% Normal Saline 100 ML IV (14:20)
--- NOTE | 2017-12-30 14:25 | CASEMGMT ---
KVNG spoke with patient again. She was pretty sleepy, but did converse with KVNG. She said she has a few medications she needs to get filled. KVNG told her about [email or web address]. She is from [facility] so KVNG did not give her information on [employer]. Per [facility] Patient Financial Services note she completed a Medicaid application. Robina MADDEN
[2017-12-31] VITALS (12 sets, daily range): BP systolic 124–133; BP diastolic 40–59; PULSE 52–81; RESP 16–20; TEMP 36.7–37.2; O2SAT 95–98
[2017-12-31] MEDS: 0.9% NaCl Peripheral Flush Adult/Peds IV (05:16)
[2017-12-31] MEDS: Sucralfate 1 GM Tablet PO ×4 (07:06→21:20)
--- NOTE | 2017-12-31 08:32 | EKG12_ITS ---
Test Reason : CHEST PAIN Blood Pressure : / mmHG Vent. Rate : 061 BPM Atrial Rate : 061 BPM P-R Int : 130 ms QRS Dur : 094 ms QT Int : 416 ms P-R-T Axes : 042 018 020 degrees QTc Int : 418 ms Normal sinus rhythm Nonspecific T wave abnormality Abnormal ECG Confirmed by GERONIMO HARRIS, LISA ([id number]), editor at large KATEY VAZQUEZ ([id number]) on 01/03/2018 2:51:07 PM Referred By: SEBLE Confirmed By:ILSA MELTON MD
[2017-12-31] MEDS: Pantoprazole Sodium 20 MG Tablet PO ×2 (09:26→21:20)
[2017-12-31] MEDS: Gabapentin 100 MG Capsule PO ×3 (09:26→16:34)
[2017-12-31] MEDS: Triamterene 37.5MG/Hctz 25MG Capsule 1 CAP PO (09:26)
[2017-12-31] MEDS: Enoxaparin 40 MG/0.4 ML Syringe SC (09:27)
[2017-12-31] MEDS: 0.9% Normal Saline 1,000 ML 125 ML IV ×2 (09:28→18:45)
--- NOTE | 2017-12-31 12:41 | PCM.PROGNOTE ---
<Kiera Wang - Last Filed: 12/31/17 12:50> Patient Problems: Active and Suspected Problems Headache (Acute) Subjective: Patient continues to have headache, states not improved. Complains of chest pain which began this morning. - Physical Exam General: Alert, Oriented x3, Cooperative, No apparent distress HEENT: Atraumatic, PERRLA, EOMI, Normocephalic Neck: Supple, No JVD, Negative Carotid Bruits Lungs: Clear to auscultation, Normal air movement Cardiovascular: Regular rate, Regular Rhythm, Normal S1, Normal S2, No murmurs Abdomen: Bowel Sounds Present, Soft, Non Tender, Non-Distended, Obese Extremities: No clubbing, No cyanosis, No edema, Capillary Refill Less than 3 Seconds Skin: No rashes, No breakdown Musculoskeletal: No Tenderness to Palpation of Joints or Extremities Neurological: Cranial nerves II-XII grossly intact, Neuro grossly intact Psych/Mental Status: Normal Affect, Appropriate Vital Signs Temp Pulse Resp BP Pulse Ox 98.3 F 63 16 132/59 H 96 12/31/17 09:19 12/31/17 09:19 12/31/17 09:19 12/31/17 09:19 12/31/17 09:19 Oxygen Delivery Method Room Air Weight: 241 lb 10.026 oz Body Mass Index (BMI) 37.9 Intake and Output for Last 24 Hours 12/29/17 12/30/17 12/31/17 23:59 23:59 23:59 Intake Total 240 / 240 2157 / 2157 2591 / 2591 Balance 240 / 240 2157 / 2157 2591 / 2591 Laboratory Tests Past 24 Hrs 12/31/17 09:40 Troponin I < 0.015 Medical Necessity - Tobacco Use Smoking Status: Never smoker Tobacco Use: Non-smoker Assessment/Plan All Active Problems Headache (Acute) Chest pain (Acute) 1. Intractable headache- not improved. Neuro consulted. Avoid narcotics. MRI negative. Continue Decadron 500 IV every 6, Depakote 500 mg IV every 6, Toradol 30 mg IV every 6. Started on low-dose Neurontin on admission. Received mag sulfate x2. MRV normal. CRP 12.4. ESR 32. Follow-up with neurology in 6 weeks as outpatient. Ophthalmology follow up as outpatient. Patient states headache is not improved. Will speak with neurology for further recommendations. Neurology discussed LP if no improvement of headache. 2. Chest pain-Trop neg. EKG without ST-T changes. 3. Chronic LLE lymphedema-continue home hydrochlorthiazide regimen. 4. GERD-continue home PPI and Carafate. 5. Obstructive sleep apnea-CPAP nightly. 6. Obesity- Encourage diet and lifestyle modifications. Nutrition consult. DVT prophylaxis-Lovenox subcu, SCDs. This patient was seen by CHARLENE Mg under the supervision of Dr. Stern. <Maddie Stern - Last Filed: 12/31/17 15:18> - Physical Exam Vital Signs Temp Pulse Resp BP Pulse Ox 98.3 F 75 16 132/59 H 96 12/31/17 09:19 12/31/17 11:19 12/31/17 09:19 12/31/17 09:19 12/31/17 09:19 Oxygen Delivery Method Room Air Weight: 241 lb 10.026 oz Body Mass Index (BMI) 37.9 Intake and Output for Last 24 Hours 12/29/17 12/30/17 12/31/17 23:59 23:59 23:59 Intake Total 240 / 240 2157 / 2157 2591 / 2591 Balance 240 / 240 2157 / 2157 2591 / 2591 Laboratory Tests Past 24 Hrs 12/31/17 09:40 Troponin I < 0.015 Assessment/Plan Patient seen by Kiera CHANG under my supervision. Patient admitted with a complaint of intractable headache which has still not improved. Neuro on board. Patient seen and examined today. She still has a headache which she says is rated ~ 6/10. Headache has associated photophobia and gets better when the lights are off. She also complained of episodic chest pain; EKG and troponins done were negative. 12 point review of systems was otherwise negative. Labs and vitals reviewed. o/e: Vital Signs Height 5 ft 6.93 in Weight: 241 lb 10.026 oz Weight in Pounds 241.6 lbs Pulse Ox 96 Temperature 98.3 F Pulse Rate 75 Respiratory Rate 16 Blood Pressure [2nd BP] 127/60 Blood Pressure 132/59 Blood Pressure Position [2nd Semi-Fowlers BP] Blood Pressure Position Semi-Fowlers General: Alert, Oriented x3, Cooperative, No apparent distress HEENT: Atraumatic, PERRLA, EOMI, Normocephalic Neck: Supple, No JVD, Negative Carotid Bruits Lungs: Clear to auscultation, Normal air movement Cardiovascular: Regular rate, Regular Rhythm, Normal S1, Normal S2, No murmurs Abdomen: Bowel Sounds Present, Soft, Non Tender, Non-Distended, Obese Extremities: No clubbing, No cyanosis, No edema, Capillary Refill Less than 3 Seconds Skin: No rashes, No breakdown Musculoskeletal: No Tenderness to Palpation of Joints or Extremities Neurological: Cranial nerves II-XII grossly intact, Neuro grossly intact Psych/Mental Status: Normal Affect, Appropriate Assessment and plan 1. Intractable migrainoid headache MRI was negative on IV decadrone, depakote and IV toradol. Also on low dose neurontin and has received 2 doses of Mg sulfaate. per neurology notes, to have LP if headache doesnt improve; I am suspecting that malingering is also contributing, as patient is quite comfortable, even as she complains of severe headache. For likely DC tomorrow if headache improves. Rest of management as per Kiera Wang's note. Agree with note, assessment and plan as per Kiera Wang's note. Code Visit Inpatient E&M: 35206 Subs Hosp L3
--- NOTE | 2017-12-31 12:47 | PN_ITS ---
<Kiera Wang - Last Filed: 12/31/17 12:50> Patient Problems: Active and Suspected Problems Headache (Acute) Subjective: Patient continues to have headache, states not improved. Complains of chest pain which began this morning. - Physical Exam General: Alert, Oriented x3, Cooperative, No apparent distress HEENT: Atraumatic, PERRLA, EOMI, Normocephalic Neck: Supple, No JVD, Negative Carotid Bruits Lungs: Clear to auscultation, Normal air movement Cardiovascular: Regular rate, Regular Rhythm, Normal S1, Normal S2, No murmurs Abdomen: Bowel Sounds Present, Soft, Non Tender, Non-Distended, Obese Extremities: No clubbing, No cyanosis, No edema, Capillary Refill Less than 3 Seconds Skin: No rashes, No breakdown Musculoskeletal: No Tenderness to Palpation of Joints or Extremities Neurological: Cranial nerves II-XII grossly intact, Neuro grossly intact Psych/Mental Status: Normal Affect, Appropriate Vital Signs Temp Pulse Resp BP Pulse Ox 98.3 F 63 16 132/59 H 96 12/31/17 09:19 12/31/17 09:19 12/31/17 09:19 12/31/17 09:19 12/31/17 09:19 Oxygen Delivery Method Room Air Weight: 241 lb 10.026 oz Body Mass Index (BMI) 37.9 Intake and Output for Last 24 Hours 12/29/17 12/30/17 12/31/17 23:59 23:59 23:59 Intake Total 240 / 240 2157 / 2157 2591 / 2591 Balance 240 / 240 2157 / 2157 2591 / 2591 Laboratory Tests Past 24 Hrs 12/31/17 09:40 Troponin I < 0.015 Medical Necessity - Tobacco Use Smoking Status: Never smoker Tobacco Use: Non-smoker Assessment/Plan All Active Problems Headache (Acute) Chest pain (Acute) 1. Intractable headache- not improved. Neuro consulted. Avoid narcotics. MRI negative. Continue Decadron 500 IV every 6, Depakote 500 mg IV every 6, Toradol 30 mg IV every 6. Started on low-dose Neurontin on admission. Received mag sulfate x2. MRV normal. CRP 12.4. ESR 32. Follow-up with neurology in 6 weeks as outpatient. Ophthalmology follow up as outpatient. Patient states headache is not improved. Will speak with neurology for further recommendations. Neurology discussed LP if no improvement of headache. 2. Chest pain-Trop neg. EKG without ST-T changes. 3. Chronic LLE lymphedema-continue home hydrochlorthiazide regimen. 4. GERD-continue home PPI and Carafate. 5. Obstructive sleep apnea-CPAP nightly. 6. Obesity- Encourage diet and lifestyle modifications. Nutrition consult. DVT prophylaxis-Lovenox subcu, SCDs. This patient was seen by CHARLENE Mg under the supervision of Dr. Stern. <Maddie Stern - Last Filed: 12/31/17 15:18> - Physical Exam Vital Signs Temp Pulse Resp BP Pulse Ox 98.3 F 75 16 132/59 H 96 12/31/17 09:19 12/31/17 11:19 12/31/17 09:19 12/31/17 09:19 12/31/17 09:19 Oxygen Delivery Method Room Air Weight: 241 lb 10.026 oz Body Mass Index (BMI) 37.9 Intake and Output for Last 24 Hours 12/29/17 12/30/17 12/31/17 23:59 23:59 23:59 Intake Total 240 / 240 2157 / 2157 2591 / 2591 Balance 240 / 240 2157 / 2157 2591 / 2591 Laboratory Tests Past 24 Hrs 12/31/17 09:40 Troponin I < 0.015 Assessment/Plan Patient seen by Kiera CHANG under my supervision. Patient admitted with a complaint of intractable headache which has still not improved. Neuro on board. Patient seen and examined today. She still has a headache which she says is rated ~ 6/10. Headache has associated photophobia and gets better when the lights are off. She also complained of episodic chest pain; EKG and troponins done were negative. 12 point review of systems was otherwise negative. Labs and vitals reviewed. o/e: Vital Signs Height 5 ft 6.93 in Weight: 241 lb 10.026 oz Weight in Pounds 241.6 lbs Pulse Ox 96 Temperature 98.3 F Pulse Rate 75 Respiratory Rate 16 Blood Pressure [2nd BP] 127/60 Blood Pressure 132/59 Blood Pressure Position [2nd Semi-Fowlers BP] Blood Pressure Position Semi-Fowlers General: Alert, Oriented x3, Cooperative, No apparent distress HEENT: Atraumatic, PERRLA, EOMI, Normocephalic Neck: Supple, No JVD, Negative Carotid Bruits Lungs: Clear to auscultation, Normal air movement Cardiovascular: Regular rate, Regular Rhythm, Normal S1, Normal S2, No murmurs Abdomen: Bowel Sounds Present, Soft, Non Tender, Non-Distended, Obese Extremities: No clubbing, No cyanosis, No edema, Capillary Refill Less than 3 Seconds Skin: No rashes, No breakdown Musculoskeletal: No Tenderness to Palpation of Joints or Extremities Neurological: Cranial nerves II-XII grossly intact, Neuro grossly intact Psych/Mental Status: Normal Affect, Appropriate Assessment and plan 1. Intractable migrainoid headache * MRI was negative * on IV decadrone, depakote and IV toradol. Also on low dose neurontin and has received 2 doses of Mg sulfaate. * per neurology notes, to have LP if headache doesnt improve; * I am suspecting that malingering is also contributing, as patient is quite comfortable, even as she complains of severe headache. For likely DC tomorrow if headache improves. * Rest of management as per Kiera Wang's note. Agree with note, assessment and plan as per Kiera Wang's note. Code Visit Inpatient E&M: 08430 Subs Hosp L3
[2017-12-31] MEDS: Amitriptyline 25 MG Tablet PO (21:22)
[2018-01-01] VITALS (13 sets, daily range): BP systolic 98–122; BP diastolic 46–66; PULSE 47–88; RESP 16–18; TEMP 36.5–37.1; O2SAT 95–99
[2018-01-01 06:02] LABS: Absolute Lymphocyte Count 1.07 X10^3/ul (0.83-4.51); Absolute Neutrophil Count 12.9 X10^3/uL (2.0-7.7); Hematocrit 36.1 % (37-47); Hemoglobin 11.5 g/dl (12.0-15.0); Lymphocyte # 1.07 X10^3/ul (4.0); Lymphocyte % 7.5 % (19-41); Mean Corp Hgb Conc 31.9 g/gl (32-36); Mean Corpuscular Hgb 28.1 pg (27.0-32.0); Mean Corpuscular Volume 88.3 fL (81-99); Mean Platelet Vol. 10.7 fl (6.2-12.0); Monocyte# 0.24 X10^3/uL; Monocyte% 1.7 % (0-10); Neutrophil # 12.88 X10^3/uL (2.7-7.7); Neutrophil % 90.6 % (47-70); Platelet Count 308 K/mm3 (150-450); RBC Distribution Width CV 14.4 % (11.6-14.6); RBC Distribution Width SD 46.1 fl (35.1-43.9); Red Blood Count 4.09 M/mm3 (4.2-5.4); White Blood Count 14.2 K/mm3 (4.4-11.0)
[2018-01-01 06:07] LABS: POSITIVE COUNT NO; POSITIVE DIFFERENTIAL NO; POSITIVE MORPHOLOGY NO
[2018-01-01] MEDS: Sucralfate 1 GM Tablet PO ×4 (06:09→21:03)
[2018-01-01 06:11] LABS: Anion Gap 8 (5-15); BUN 15 mg/dL (7-18); BUN/Creat Ratio 21.3 RATIO (10-20); Calcium,Total 8.5 mg/dL (8.5-10.1); Chloride 108 mmol/L (98-107); EST Glomerular Filtration Rate 96 mL/min (>60); Est Glom Filt Rate - Afr Amer 116 mL/min (>60); Estimated Creatinine Clearance 96.01 ml/min; Glucose 127 mg/dL (74-106); Potassium 4.2 mmol/L (3.5-5.1); Sodium Level 142 mmol/L (136-145)
[2018-01-01] MEDS: 0.9% NaCl Peripheral Flush Adult/Peds IV (06:34)
[2018-01-01] MEDS: 0.9% Normal Saline 1,000 ML 125 ML IV ×2 (08:08→18:34)
[2018-01-01] MEDS: Triamterene 37.5MG/Hctz 25MG Capsule 1 CAP PO (08:36)
[2018-01-01] MEDS: Pantoprazole Sodium 20 MG Tablet PO ×2 (08:36→21:03)
[2018-01-01] MEDS: Enoxaparin 40 MG/0.4 ML Syringe SC (08:36)
[2018-01-01] MEDS: Gabapentin 100 MG Capsule PO ×3 (08:36→18:34)
--- NOTE | 2018-01-01 10:47 | PCM.PROGNOTE ---
<Kiera Wang - Last Filed: 01/01/18 11:21> Patient Problems: Active and Suspected Problems Headache (Acute) Subjective: Patient seen and examined. Appears to be resting comfortably in bed. Complains of continued headache 10/11. Denies further chest pain. Denies fever, chills. Denies vision changes. Denies neck stiffness. - Physical Exam General: Alert, Oriented x3, Cooperative, No apparent distress HEENT: Atraumatic, PERRLA, EOMI, Normocephalic Neck: Supple, No JVD, Negative Carotid Bruits Lungs: Clear to auscultation, Normal air movement Cardiovascular: Regular rate, Regular Rhythm, Normal S1, Normal S2, No murmurs Abdomen: Bowel Sounds Present, Soft, Non Tender, Non-Distended, Obese Extremities: No clubbing, No cyanosis, No edema, Capillary Refill Less than 3 Seconds Skin: No rashes, No breakdown Musculoskeletal: No Tenderness to Palpation of Joints or Extremities Neurological: Cranial nerves II-XII grossly intact, Neuro grossly intact Psych/Mental Status: Normal Affect, Appropriate Vital Signs Temp Pulse Resp BP Pulse Ox 98.3 F 58 L 17 118/66 98 01/01/18 05:19 01/01/18 06:57 01/01/18 05:19 01/01/18 05:19 01/01/18 07:00 Oxygen Delivery Method Room Air Weight: 241 lb 10.026 oz Body Mass Index (BMI) 37.9 Intake and Output for Last 24 Hours 12/30/17 12/31/17 01/01/18 23:59 23:59 23:59 Intake Total 2157 / 2157 4195 / 4195 586 / 586 Balance 215 / 215 4195 / 4195 586 / 586 Laboratory Tests Past 24 Hrs 12/31/17 01/01/18 01/01/18 18:45 05:06 05:06 WBC 14.2 H RBC 4.09 L Hgb 11.5 L Hct 36.1 L MCV 88.3 MCH 28.1 MCHC 31.9 L RDW 14.4 RDW Differential 46.1 H Plt Count 308 MPV 10.7 Immature Gran % (Auto) 0.200 Neut % (Auto) 90.6 H Lymph % (Auto) 7.5 L [place] % (Auto) 1.7 Eos % (Auto) 0.0 Baso % (Auto) 0.0 Absolute Neuts (auto) 12.9 H Absolute Lymphs (auto) 1.07 Total Counted Not Reportable Sodium 142 Potassium 4.2 Chloride 108 H Carbon Dioxide 26.0 Anion Gap 8 BUN 15 Creatinine 0.70 Estim Creat Clear Calc 96.01 Est GFR (MDRD) Af Amer 116 Est GFR (MDRD) Non-Af 96 BUN/Creatinine Ratio 21.3 H Glucose 127 H Calcium 8.5 CSF Cryptococcus Ag Pending Lyme Total Antibody Pending CMV DNA Qual PCR Pending Medical Necessity - Tobacco Use Smoking Status: Never smoker Tobacco Use: Non-smoker Assessment/Plan All Active Problems Headache (Acute) Chest pain (Acute) 1. Intractable headache- not improved. Neuro consulted. Avoid narcotics. MRI negative. Continue Decadron 500 IV every 6, Depakote 500 mg IV every 6, Toradol 30 mg IV every 6. Started on low-dose Neurontin on admission. Received mag sulfate x2. MRV normal. CRP 12.4. ESR 32. Follow-up with neurology in 6 weeks as outpatient. Ophthalmology follow up as outpatient. Patient states headache is not improved. Neurology recommending LP which will take place tomorrow. CSF labs ordered. Lyme titer pending. Patient started on Elavil 25mg QHS. 2. Chest pain-Trop neg. EKG without ST-T changes. 3. Chronic LLE lymphedema-continue home hydrochlorthiazide regimen. 4. GERD-continue home PPI and Carafate. 5. Obstructive sleep apnea-CPAP nightly. 6. Obesity- Encourage diet and lifestyle modifications. Nutrition consult. DVT prophylaxis-Lovenox subcu, SCDs. This patient was seen by CHARLENE Mg under the supervision of Dr. Stern. <Maddie Stern - Last Filed: 01/01/18 12:57> - Physical Exam Vital Signs Temp Pulse Resp BP Pulse Ox 98.8 F 68 18 122/62 H 96 01/01/18 11:15 01/01/18 11:15 01/01/18 11:15 01/01/18 11:15 01/01/18 11:15 Oxygen Delivery Method Room Air Weight: 241 lb 10.026 oz Body Mass Index (BMI) 37.9 Intake and Output for Last 24 Hours 12/30/17 12/31/1718 23:59 23:59 23:59 Intake Total 2156 4195 / 4195 1519 / 1519 Balance 2156 4195 / 4195 1519 / 1519 Laboratory Tests Past 24 Hrs 12/31/17 01/01/18 01/01/18 18:45 05:06 05:06 WBC 14.2 H RBC 4.09 L Hgb 11.5 L Hct 36.1 L MCV 88.3 MCH 28.1 MCHC 31.9 L RDW 14.4 RDW Differential 46.1 H Plt Count 308 MPV 10.7 Immature Gran % (Auto) 0.200 Neut % (Auto) 90.6 H Lymph % (Auto) 7.5 L [place] % (Auto) 1.7 Eos % (Auto) 0.0 Baso % (Auto) 0.0 Absolute Neuts (auto) 12.9 H Absolute Lymphs (auto) 1.07 Total Counted Not Reportable Sodium 142 Potassium 4.2 Chloride 108 H Carbon Dioxide 26.0 Anion Gap 8 BUN 15 Creatinine 0.70 Estim Creat Clear Calc 96.01 Est GFR (MDRD) Af Amer 116 Est GFR (MDRD) Non-Af 96 BUN/Creatinine Ratio 21.3 H Glucose 127 H Calcium 8.5 CSF Cryptococcus Ag Pending Lyme Total Antibody Pending CMV DNA Qual PCR Pending Assessment/Plan Patient seen by nurse practitioner Kiera Wang under my supervision. Patient seen and examined. She still complains of headache. She rates headache at 6 out of 10 and states Depakote and steroids and all the other medications are not helping. She denies any neck stiffness, fever chills, shortness of breath, abdominal pain, diarrhea vomiting. I strongly believe the patient may be malingering as I understand patient is going through a divorce which is very tough on her and so this may be influencing her symptoms. Patient is usually resting very calmly but as soon as any physician or clinician walks in she states she starts complaining of the headache. Point review of systems otherwise negative. o/e: Vital Signs Height 5 ft 6.93 in Weight: 241 lb 10.026 oz Weight in Pounds 241.6 lbs Pulse Ox 96 Temperature 98.8 F Pulse Rate 68 Respiratory Rate 18 Blood Pressure [2nd BP] 127/60 Blood Pressure 122/62 Blood Pressure Position [2nd Semi-Fowlers BP] Blood Pressure Position Semi-Fowlers General: Alert, Oriented x3, Cooperative, No apparent distress HEENT: Atraumatic, PERRLA, EOMI, Normocephalic Neck: Supple, No JVD, Negative Carotid Bruits Lungs: Clear to auscultation, Normal air movement Cardiovascular: Regular rate, Regular Rhythm, Normal S1, Normal S2, No murmurs Abdomen: Bowel Sounds Present, Soft, Non Tender, Non-Distended, Obese Extremities: No clubbing, No cyanosis, No edema, Capillary Refill Less than 3 Seconds Skin: No rashes, No breakdown Musculoskeletal: No Tenderness to Palpation of Joints or Extremities Neurological: Cranial nerves II-XII grossly intact, Neuro grossly intact Psych/Mental Status: Normal Affect, Appropriate Assessment and plan 1. Intractable migrainoid headache MRI was negative on IV decadrone, depakote and IV toradol. Per neuro, to stop decadrone and depakote; to start elavil. Also on low dose neurontin per neurology notes, to have LP if headache doesnt improve; for LP tomorrow; ok to dc home tomorrow if LP is normal Rest of management as per Kiera Wang's note. Agree with note, assessment and plan as per Kiera Wang's note. Code Visit Inpatient E&M: 12852 Subs Hosp L2
--- NOTE | 2018-01-01 10:57 | PN_ITS ---
Addendum entered and electronically signed by CHARLENE Mg 01/01/18 11:21: Code Visit Discussed patient with neurology: IV Decadron and Depakote discontinued. We will continue Elavil 25 mg nightly. Started on Topamax 25 mg twice daily. Tylenol as needed for headache. Plan for discharge tomorrow if LP is normal. Original Note: <Kiera Wang - Last Filed: 01/01/18 11:21> Patient Problems: Active and Suspected Problems Headache (Acute) Subjective: Patient seen and examined. Appears to be resting comfortably in bed. Complains of continued headache 10/11. Denies further chest pain. Denies fever, chills. Denies vision changes. Denies neck stiffness. - Physical Exam General: Alert, Oriented x3, Cooperative, No apparent distress HEENT: Atraumatic, PERRLA, EOMI, Normocephalic Neck: Supple, No JVD, Negative Carotid Bruits Lungs: Clear to auscultation, Normal air movement Cardiovascular: Regular rate, Regular Rhythm, Normal S1, Normal S2, No murmurs Abdomen: Bowel Sounds Present, Soft, Non Tender, Non-Distended, Obese Extremities: No clubbing, No cyanosis, No edema, Capillary Refill Less than 3 Seconds Skin: No rashes, No breakdown Musculoskeletal: No Tenderness to Palpation of Joints or Extremities Neurological: Cranial nerves II-XII grossly intact, Neuro grossly intact Psych/Mental Status: Normal Affect, Appropriate Vital Signs Temp Pulse Resp BP Pulse Ox 98.3 F 58 L 17 118/66 98 01/01/18 05:19 01/01/18 06:57 01/01/18 05:19 01/01/18 05:19 01/01/18 07:00 Oxygen Delivery Method Room Air Weight: 241 lb 10.026 oz Body Mass Index (BMI) 37.9 Intake and Output for Last 24 Hours 12/30/17 12/31/17 01/01/18 23:59 23:59 23:59 Intake Total 2156 / 2156 4195 / 4195 586 / 586 Balance 2156 / 2156 4195 / 4195 586 / 586 Laboratory Tests Past 24 Hrs 12/31/17 01/01/18 01/01/18 18:45 05:06 05:06 WBC 14.2 H RBC 4.09 L Hgb 11.5 L Hct 36.1 L MCV 88.3 MCH 28.1 MCHC 31.9 L RDW 14.4 RDW Differential 46.1 H Plt Count 308 MPV 10.7 Immature Gran % (Auto) 0.200 Neut % (Auto) 90.6 H Lymph % (Auto) 7.5 L [place] % (Auto) 1.7 Eos % (Auto) 0.0 Baso % (Auto) 0.0 Absolute Neuts (auto) 12.9 H Absolute Lymphs (auto) 1.07 Total Counted Not Reportable Sodium 142 Potassium 4.2 Chloride 108 H Carbon Dioxide 26.0 Anion Gap 8 BUN 15 Creatinine 0.70 Estim Creat Clear Calc 96.01 Est GFR (MDRD) Af Amer 116 Est GFR (MDRD) Non-Af 96 BUN/Creatinine Ratio 21.3 H Glucose 127 H Calcium 8.5 CSF Cryptococcus Ag Pending Lyme Total Antibody Pending CMV DNA Qual PCR Pending Medical Necessity - Tobacco Use Smoking Status: Never smoker Tobacco Use: Non-smoker Assessment/Plan All Active Problems Headache (Acute) Chest pain (Acute) 1. Intractable headache- not improved. Neuro consulted. Avoid narcotics. MRI negative. Continue Decadron 500 IV every 6, Depakote 500 mg IV every 6, Toradol 30 mg IV every 6. Started on low-dose Neurontin on admission. Received mag sulfate x2. MRV normal. CRP 12.4. ESR 32. Follow-up with neurology in 6 weeks as outpatient. Ophthalmology follow up as outpatient. Patient states headache is not improved. Neurology recommending LP which will take place tomorrow. CSF labs ordered. Lyme titer pending. Patient started on Elavil 25mg QHS. 2. Chest pain-Trop neg. EKG without ST-T changes. 3. Chronic LLE lymphedema-continue home hydrochlorthiazide regimen. 4. GERD-continue home PPI and Carafate. 5. Obstructive sleep apnea-CPAP nightly. 6. Obesity- Encourage diet and lifestyle modifications. Nutrition consult. DVT prophylaxis-Lovenox subcu, SCDs. This patient was seen by CHARLENE Mg under the supervision of Dr. Stern. <Maddie Stern - Last Filed: 01/01/18 12:57> - Physical Exam Vital Signs Temp Pulse Resp BP Pulse Ox 98.8 F 68 18 122/62 H 96 01/01/18 11:15 01/01/18 11:15 01/01/18 11:15 01/01/18 11:15 01/01/18 11:15 Oxygen Delivery Method Room Air Weight: 241 lb 10.026 oz Body Mass Index (BMI) 37.9 Intake and Output for Last 24 Hours 12/30/17 12/31/17 01/01/18 23:59 23:59 23:59 Intake Total 2156 / 2156 4195 / 4195 1519 / 1519 Balance 2156 / 2156 4195 / 4195 1519 / 1519 Laboratory Tests Past 24 Hrs 12/31/17 01/01/18 01/01/18 18:45 05:06 05:06 WBC 14.2 H RBC 4.09 L Hgb 11.5 L Hct 36.1 L MCV 88.3 MCH 28.1 MCHC 31.9 L RDW 14.4 RDW Differential 46.1 H Plt Count 308 MPV 10.7 Immature Gran % (Auto) 0.200 Neut % (Auto) 90.6 H Lymph % (Auto) 7.5 L [place] % (Auto) 1.7 Eos % (Auto) 0.0 Baso % (Auto) 0.0 Absolute Neuts (auto) 12.9 H Absolute Lymphs (auto) 1.07 Total Counted Not Reportable Sodium 142 Potassium 4.2 Chloride 108 H Carbon Dioxide 26.0 Anion Gap 8 BUN 15 Creatinine 0.70 Estim Creat Clear Calc 96.01 Est GFR (MDRD) Af Amer 116 Est GFR (MDRD) Non-Af 96 BUN/Creatinine Ratio 21.3 H Glucose 127 H Calcium 8.5 CSF Cryptococcus Ag Pending Lyme Total Antibody Pending CMV DNA Qual PCR Pending Assessment/Plan Patient seen by nurse practitioner Kiera Wang under my supervision. Patient seen and examined. She still complains of headache. She rates headache at 6 out of 10 and states Depakote and steroids and all the other medications are not helping. She denies any neck stiffness, fever chills, shortness of breath, abdominal pain, diarrhea vomiting. I strongly believe the patient may be malingering as I understand patient is going through a divorce which is very tough on her and so this may be influencing her symptoms. Patient is usually resting very calmly but as soon as any physician or clinician walks in she states she starts complaining of the headache. Point review of systems otherwise negative. o/e: Vital Signs Height 5 ft 6.93 in Weight: 241 lb 10.026 oz Weight in Pounds 241.6 lbs Pulse Ox 96 Temperature 98.8 F Pulse Rate 68 Respiratory Rate 18 Blood Pressure [2nd BP] 127/60 Blood Pressure 122/62 Blood Pressure Position [2nd Semi-Fowlers BP] Blood Pressure Position Semi-Fowlers General: Alert, Oriented x3, Cooperative, No apparent distress HEENT: Atraumatic, PERRLA, EOMI, Normocephalic Neck: Supple, No JVD, Negative Carotid Bruits Lungs: Clear to auscultation, Normal air movement Cardiovascular: Regular rate, Regular Rhythm, Normal S1, Normal S2, No murmurs Abdomen: Bowel Sounds Present, Soft, Non Tender, Non-Distended, Obese Extremities: No clubbing, No cyanosis, No edema, Capillary Refill Less than 3 Seconds Skin: No rashes, No breakdown Musculoskeletal: No Tenderness to Palpation of Joints or Extremities Neurological: Cranial nerves II-XII grossly intact, Neuro grossly intact Psych/Mental Status: Normal Affect, Appropriate Assessment and plan 1. Intractable migrainoid headache * MRI was negative * on IV decadrone, depakote and IV toradol. Per neuro, to stop decadrone and depakote; to start elavil. * Also on low dose neurontin * per neurology notes, to have LP if headache doesnt improve; * for LP tomorrow; ok to dc home tomorrow if LP is normal * Rest of management as per Kiera Wang's note. Agree with note, assessment and plan as per Kirea Wang's note. Code Visit Inpatient E&M: 37639 Subs Hosp L2
[2018-01-01] MEDS: Topiramate 25 MG Tablet PO ×2 (12:00→21:02)
[2018-01-01] MEDS: Acetaminophen 500 MG Tablet PO (18:34)
[2018-01-01] MEDS: proMETHazine 25 MG/ML Syringe 12.5 MG IV (20:51)
[2018-01-01] MEDS: Amitriptyline 25 MG Tablet PO (21:03)
[2018-01-02] VITALS (16 sets, daily range): BP systolic 103–130; BP diastolic 50–61; PULSE 39–67; RESP 16–18; TEMP 36.4–36.9; O2SAT 96–100
[2018-01-02] MEDS: Acetaminophen 500 MG Tablet PO ×2 (01:55→08:09)
[2018-01-02] MEDS: 0.9% Normal Saline 1,000 ML 125 ML IV ×3 (01:55→20:45)
--- NOTE | 2018-01-02 02:48 | NURSING ---
Addendum entered by Sabine Vieyra 01/02/18 02:50: Denies nausea or lightheadedness, no diaphoresis, no arm pain. State headache is still a 10/11. Original Note: Pt c/o chest pressure in left side, RT made aware to do EKG, Clementina, charge nurse aware also.
--- NOTE | 2018-01-02 02:49 | NURSING ---
RT here to do EKG
[2018-01-02] MEDS: Ketorolac 30 MG/ML Syringe IV (03:19)
[2018-01-02 05:54] LABS: Absolute Lymphocyte Count 2.24 X10^3/ul (0.83-4.51); Absolute Neutrophil Count 7.3 X10^3/uL (2.0-7.7); Hematocrit 34.2 % (37-47); Hemoglobin 10.9 g/dl (12.0-15.0); Lymphocyte # 2.24 X10^3/ul (4.0); Lymphocyte % 22.1 % (19-41); Mean Corp Hgb Conc 31.9 g/gl (32-36); Mean Corpuscular Hgb 28.4 pg (27.0-32.0); Mean Corpuscular Volume 89.1 fL (81-99); Mean Platelet Vol. 10.7 fl (6.2-12.0); Monocyte# 0.58 X10^3/uL; Monocyte% 5.7 % (0-10); Neutrophil # 7.28 X10^3/uL (2.7-7.7); Neutrophil % 71.9 % (47-70); Platelet Count 282 K/mm3 (150-450); RBC Distribution Width CV 14.5 % (11.6-14.6); RBC Distribution Width SD 46.1 fl (35.1-43.9); Red Blood Count 3.84 M/mm3 (4.2-5.4); White Blood Count 10.1 K/mm3 (4.4-11.0)
[2018-01-02 05:56] LABS: Anion Gap 8 (5-15); BUN 20 mg/dL (7-18); BUN/Creat Ratio 29.9 RATIO (10-20); Calcium,Total 8.2 mg/dL (8.5-10.1); Chloride 108 mmol/L (98-107); Creatinine, Serum 0.67 mg/dL (0.55-1.02); EST Glomerular Filtration Rate 102 mL/min (>60); Est Glom Filt Rate - Afr Amer 123 mL/min (>60); Estimated Creatinine Clearance 100.31 ml/min; Glucose 91 mg/dL (74-106); Potassium 3.8 mmol/L (3.5-5.1); Sodium Level 142 mmol/L (136-145)
--- NOTE | 2018-01-02 05:58 | NURSING ---
Pt c/o pain in left chest, non radiating, describes as aching, squeezing. VS obtained. Dr. Alonzo made aware.
[2018-01-02] MEDS: Sucralfate 1 GM Tablet PO ×4 (06:05→22:22)
[2018-01-02 06:09] LABS: Prothrombin Time (Protime)PT. 13.3 SECONDS (11.7-14.9)
[2018-01-02 06:10] LABS: Partial Thromboplast Time 25.1 Seconds (24.1-36.2)
[2018-01-02 06:20] LABS: POSITIVE COUNT NO; POSITIVE DIFFERENTIAL NO; POSITIVE MORPHOLOGY NO
[2018-01-02] MEDS: Triamterene 37.5MG/Hctz 25MG Capsule 1 CAP PO (08:10)
[2018-01-02] MEDS: Pantoprazole Sodium 20 MG Tablet PO ×2 (08:10→22:22)
[2018-01-02] MEDS: Gabapentin 100 MG Capsule PO ×2 (08:10→11:56)
[2018-01-02] MEDS: Topiramate 25 MG Tablet PO ×2 (08:10→22:23)
--- NOTE | 2018-01-02 08:41 | EKG12_ITS ---
Test Reason : CP Blood Pressure : / mmHG Vent. Rate : 042 BPM Atrial Rate : 042 BPM P-R Int : 128 ms QRS Dur : 076 ms QT Int : 474 ms P-R-T Axes : 037 024 014 degrees QTc Int : 395 ms Marked sinus bradycardia Abnormal ECG When compared with ECG of 02-JAN-2018 02:54, MANUAL COMPARISON REQUIRED, DATA IS UNCONFIRMED Confirmed by LISA MELTON MD ([id number]), market editor KATEY VAZQUEZ ([id number]) on 01/03/2018 2:48:47 PM Referred By: ETTA VALENTE CNP Confirmed By:LISA MELTON MD
--- NOTE | 2018-01-02 09:20 | RAD_ITS ---
PROCEDURE: Fluoroscopic guided Lumbar Puncture. DATE: January 02, 2018. CLINICAL INDICATION: Headaches. Photophobia. PHYSICIAN: Dawood Strong M.D. MEDICATIONS: 1% lidocaine administered subcutaneously for local anesthesia. ACCESS SITE: Lower posterior back. NEEDLE: 22-gauge spinal needle. SPECIMEN: Approximately 12 mL clear]CSF fluid. FLUOROSCOPY TIME (if supplied): (0:58) minutes/seconds COMPLICATIONS: None immediate. The risks, benefits, and alternatives to the procedure were explained to the patient. The specific risks of bleeding, infection, and neurovascular injury were detailed and accepted. Witnessed informed consent was obtained. The patient was placed on the fluoroscopic table in the prone position. The level for needle entry was determined and marked. The overlying skin was cleaned and prepped in the usual sterile fashion. 2% lidocaine was administered subcutaneously for local anesthesia. Under fluoroscopic guidance a 22-gauge spinal needle was advanced. The thecal sac was entered at the L3- L4 vertebral level. The inner stylet was removed. There was spontaneous flow of clear CSF fluid. The opening pressure measured 10 mm of water. The patient was placed in a reversed Trendelenburg position. Approximately 12 mL of cerebrospinal fluid was collected using gravity. The specimen was collected and submitted to the laboratory for further evaluation. The needle was withdrawn,. Hemostasis was achieved and a sterile dressing placed. The patient tolerated the procedure well without any immediate complications. The patient was placed supine with head elevated and returned to the floor in stable condition. RAD/Fluoro Guided Lumbar Puncture IMPRESSION: Successful fluoroscopic-guided lumbar puncture. Electronically Signed: Dawood Strong MD at 10:41 EDT Tel [phone], Service support ,
--- NOTE | 2018-01-02 09:50 | FLU_PTH ---
PATIENT: CHRISTOPHE HART LOC: U U#:[id number] AGE/SX: 42/F ROOM: [facility] RE12/29/[address]: Dr. Arjun Nassar MD : [id number] BED: 1 DIS: 01/03/2018 SPEC #: [id number] RECD: 01/02/18 12:50 STATUS: JOSÉ ANTONIO REQ #: [id number] ANGIE: 01/02/18 09:[address]: Arjun Nassar DEPT: CYTOLOGY RECD BY: Haile Samano ENTERED: 01/02/18 12:51 SP TYPE: Fluid OTHR DR: MD Dr. Em Stewart MD Dr. Ramnath S Ramanathan, MD Tissues: Cerebrospinal Fluid Procedures: Pap Stain (control) Special Stain Group II Cytospin Fluid HEADER OPERATION: Lumbar puncture PRE-OP DIAGNOSIS: Headache TISSUE SUBMITTED: Cerebrospinal fluid for cytology DIAGNOSIS CYTOLOGY Cerebrospinal fluid for cytology (cytospin): Negative for malignant cells. See cytology study and comment. SJ:rg 01/03/18 COMMENT Clinical correlation and appropriate follow up are necessary. CYTOLOGY STUDY Slides are reviewed. The specimen is paucicellular and consists of mature lymphocytes and monocytes. CYTOLOGY GROSS Received is 2 ml of clear colorless fluid labeled with the patient's name and and designated per the requisition as CSF. Submitted for cytology preparation including cell block. / 01/02/18 TC:5 CPT: 32224, 13409
[2018-01-02 10:38] LABS: Cytology, Body Fluid / CSF SEE PATHOLOGY REPORT
[2018-01-02 10:51] LABS: Body Fluid Mononuclear WBC # 0.002 10^3/uL; Body Fluid Mononuclear WBC % 66.7 %; Body Fluid Polynuclear WBC # 0.001 10^3/uL; Body Fluid Polynuclear WBC % 33.3 %; Total Cell Count CSF 0.003 10^3/uL (0.000-0.000); White Count, CSF 0.003 10^3/uL (0.000-0.000)
[2018-01-02 11:05] LABS: Glucose Spinal Fluid 54 mg/dL (40-75)
[2018-01-02 11:36] LABS: Appearance CSF (character) CLEAR (Clear); Auto B Fluid Analyzer BKGD Ct COUNTS W/IN LIMITS (W/IN LIMITS); Body Fluid QC Type(s) BF1Q; CSF Color COLORLESS (Colorless); RBC Count, Spinal Fluid 4 /mm-3 (None seen); Tested Tube # 4
--- NOTE | 2018-01-02 12:10 | PCM.PN.NEU ---
Patient Problems: Active and Suspected Problems Headache (Acute) Subjective: headache is now 8/10. denies stress. discussed divorce however reports this is not affecting her - Physical Exam General: Alert, Oriented x3, Cooperative, No apparent distress Neurological: Cranial nerves II-XII grossly intact Psych/Mental Status: Normal Affect Vital Signs Temp Pulse Resp BP Pulse Ox 36.8 C 54 L 18 115/61 98 01/02/18 08:30 01/02/18 08:30 01/02/18 08:30 01/02/18 08:30 01/02/18 08:55 Oxygen Delivery Method Room Air Weight: 109.6 kg Body Mass Index (BMI) 37.9 Intake and Output for Last 24 Hours 12/31/17 01/01/18 01/02/18 23:59 23:59 23:59 Intake Total 4195 / 4195 2511 / 2511 2776 / 2776 Balance 4195 / 4195 2511 / 2511 2776 / 2776 Microbiology Past 72 Hours 01/02/18 09:50 Gram Stain - Final Csf, Spinal Fluid Laboratory Tests Past 24 Hrs 12/31/17 01/02/18 01/02/18 18:45 05:10 05:10 WBC 10.1 RBC 3.84 L Hgb 10.9 L Hct 34.2 L MCV 89.1 MCH 28.4 MCHC 31.9 L RDW 14.5 RDW Differential 46.1 H Plt Count 282 MPV 10.7 Immature Gran % (Auto) 0.300 Neut % (Auto) 71.9 H Lymph % (Auto) 22.1 [place] % (Auto) 5.7 Eos % (Auto) 0.0 Baso % (Auto) 0.0 Absolute Neuts (auto) 7.3 Absolute Lymphs (auto) 2.24 Total Counted Not Reportable PT 13.3 INR 1.0 APTT 25.1 Sodium Potassium Chloride Carbon Dioxide Anion Gap BUN Creatinine Estim Creat Clear Calc Est GFR (MDRD) Af Amer Est GFR (MDRD) Non-Af BUN/Creatinine Ratio Glucose Calcium Fld Polynuclear WBCs # Fld Polynuclear WBCs % Fluid Mononuclear WBCs Fld Mononuclear WBCs % CSF Appearance CSF Color CSF WBC CSF RBC CSF Cell Count Tube # CSF Total Cell Counted CSF Comment CSF Glucose CSF Total Protein CSF Cryptococcus Ag Pending CSF VZV DNA (PCR) Lyme Total Antibody Pending CMV DNA Qual PCR Pending [place] RNA (RT-PCR) [place] Interp Enterovirus RNA (PCR) Herpes Simplex Culture HSV I DNA PCR HSV II DNA PCR HSV Final Result Miscellaneous Cytology Miscellaneous Test 01/02/18 01/02/18 01/02/18 05:10 09:50 09:50 WBC RBC Hgb Hct MCV MCH MCHC RDW RDW Differential Plt Count MPV Immature Gran % (Auto) Neut % (Auto) Lymph % (Auto) [place] % (Auto) Eos % (Auto) Baso % (Auto) Absolute Neuts (auto) Absolute Lymphs (auto) Total Counted PT INR APTT Sodium 142 Potassium 3.8 Chloride 108 H Carbon Dioxide 26.0 Anion Gap 8 BUN 20 H Creatinine 0.67 Estim Creat Clear Calc 100.31 Est GFR (MDRD) Af Amer 123 Est GFR (MDRD) Non-Af 102 BUN/Creatinine Ratio 29.9 H Glucose 91 Calcium 8.2 L Fld Polynuclear WBCs # Fld Polynuclear WBCs % Fluid Mononuclear WBCs Fld Mononuclear WBCs % CSF Appearance CSF Color CSF WBC CSF RBC CSF Cell Count Tube # CSF Total Cell Counted CSF Comment CSF Glucose 54 CSF Total Protein 31.0 CSF Cryptococcus Ag CSF VZV DNA (PCR) Pending Lyme Total Antibody CMV DNA Qual PCR [place] RNA (RT-PCR) Pending [place] Interp Pending Enterovirus RNA (PCR) Pending Herpes Simplex Culture Pending HSV I DNA PCR Pending HSV II DNA PCR Pending HSV Final Result Pending Miscellaneous Cytology Miscellaneous Test 01/02/18 01/02/18 01/02/18 09:50 09:50 09:50 WBC RBC Hgb Hct MCV MCH MCHC RDW RDW Differential Plt Count MPV Immature Gran % (Auto) Neut % (Auto) Lymph % (Auto) [place] % (Auto) Eos % (Auto) Baso % (Auto) Absolute Neuts (auto) Absolute Lymphs (auto) Total Counted PT INR APTT Sodium Potassium Chloride Carbon Dioxide Anion Gap BUN Creatinine Estim Creat Clear Calc Est GFR (MDRD) Af Amer Est GFR (MDRD) Non-Af BUN/Creatinine Ratio Glucose Calcium Fld Polynuclear WBCs # 0.001 Fld Polynuclear WBCs % 33.3 Fluid Mononuclear WBCs 0.002 Fld Mononuclear WBCs % 66.7 CSF Appearance CLEAR CSF Color COLORLESS CSF WBC 0.003 H CSF RBC 4 H CSF Cell Count Tube # 4 CSF Total Cell Counted 0.003 H CSF Comment May follow CSF Glucose CSF Total Protein CSF Cryptococcus Ag CSF VZV DNA (PCR) Lyme Total Antibody CMV DNA Qual PCR [place] RNA (RT-PCR) [place] Interp Enterovirus RNA (PCR) Herpes Simplex Culture HSV I DNA PCR HSV II DNA PCR HSV Final Result Miscellaneous Cytology Pending Miscellaneous Test Pending Current Medications Generic Name Dose Route Start Last Admin Trade Name Freq PRN Reason Stop Dose Admin Acetaminophen 500 mg 01/01/18 11:19 01/02/18 08:09 Tylenol PO 500 mg Q6H PRN PRN Administration PAIN Al Hydroxide/Mg Hydroxide 30 ml 12/29/17 21:03 Mylanta Ii PO Q6H PRN PRN Gastric burning Amitriptyline HCl 25 mg 12/31/17 22:00 01/01/18 21:03 Elavil PO 25 mg QHS BRIAN Administration Enoxaparin Sodium 40 mg 12/30/17 10:00 01/02/18 10:33 Lovenox SC Not Given DAILY@1000 BRIAN Gabapentin 100 mg 12/29/17 21:03 01/02/18 11:56 Neurontin PO 100 mg TIDCM BRIAN Administration Sodium Chloride 1,000 mls @ 125 mls/hr 12/29/17 21:03 01/02/18 11:55 IV 125 mls/hr .Q8H BRIAN Administration Magnesium Hydroxide 30 ml 12/29/17 21:03 Milk Of Magnesia PO DAILY PRN Constipation Ondansetron HCl 4 mg 12/29/17 21:03 Zofran IV Q8H PRN PRN NAUSEA Pantoprazole Sodium 20 mg 12/30/17 10:00 01/02/18 08:10 Protonix PO 20 mg BID BRIAN Administration Promethazine HCl 12.5 mg 12/29/17 21:03 01/01/18 20:51 Phenergan IV 12.5 mg Q6H PRN PRN Administration NAUSEA/VOMITING Sodium Chloride 5 - 30 ml 12/29/17 21:55 01/01/18 06:34 IV 10 ml UD PRN Administration SALINE FLUSH Sucralfate 1 gm 12/29/17 22:00 01/02/18 11:56 Carafate PO 1 gm 1HR_ACHS BRIAN Administration Topiramate 25 mg 01/01/18 22:00 01/02/18 08:10 Topamax PO 25 mg BID BRIAN Administration Triamterene/HCTZ 1 cap 12/30/17 10:00 01/02/18 08:10 Dyazide (G) PO 1 cap DAILY BRIAN Administration Current Home Med List Medication Instructions Recorded Confirmed Type Sucralfate 1 gm PO 4X/DAY 08/13/16 12/29/17 History Omeprazole 20 mg PO BID 12/29/17 12/29/17 History Triamterene/Hydrochlorothiazid 1 tab PO DAILY 12/29/17 12/29/17 History [Triamterene-Hctz 37.5-25 mg Tb] Medical Necessity - Tobacco Use Smoking Status: Never smoker Tobacco Use: Non-smoker Assessment/Plan All Active Problems Headache (Acute) Chest pain (Acute) STATUS MIGRANOSUS: LP negative increase elavil dose add dhe
[2018-01-02] MEDS: Ketorolac 15 MG/ML Vial IV (12:24)
--- NOTE | 2018-01-02 13:30 | PCM.PROGNOTE ---
<Kiera Wang - Last Filed: 01/02/18 13:33> Patient Problems: Active and Suspected Problems Headache (Acute) Subjective: Patient seen and examined. Continues to complain of severe headache. Appears to be resting comfortably in bed. Continues to complain of intermittent chest pain. - Physical Exam General: Alert, Oriented x3, Cooperative, No apparent distress HEENT: Atraumatic, PERRLA, EOMI, Normocephalic Neck: Supple, No JVD, Negative Carotid Bruits Lungs: Clear to auscultation, Normal air movement Cardiovascular: Regular rate, Regular Rhythm, Normal S1, Normal S2, No murmurs Abdomen: Bowel Sounds Present, Soft, Non Tender, Non-Distended, Obese Extremities: No clubbing, No cyanosis, No edema, Capillary Refill Less than 3 Seconds Skin: No rashes, No breakdown Musculoskeletal: No Tenderness to Palpation of Joints or Extremities Neurological: Cranial nerves II-XII grossly intact, Neuro grossly intact Psych/Mental Status: Normal Affect, Appropriate Vital Signs Temp Pulse Resp BP Pulse Ox 98.2 F 56 L 18 116/54 L 96 01/02/18 12:40 01/02/18 12:40 01/02/18 12:40 01/02/18 12:40 01/02/18 12:40 Oxygen Delivery Method Room Air Weight: 241 lb 10.026 oz Body Mass Index (BMI) 37.9 Intake and Output for Last 24 Hours 12/31/17 01/01/18 01/02/18 23:59 23:59 23:59 Intake Total 4195 / 4195 2511 / 2511 2776 / 2776 Balance 4195 / 4195 2511 / 2511 2776 / 2776 Microbiology Past 72 Hours 01/02/18 09:50 Gram Stain - Final Csf, Spinal Fluid Laboratory Tests Past 24 Hrs 12/31/17 01/02/18 01/02/18 18:45 05:10 05:10 WBC 10.1 RBC 3.84 L Hgb 10.9 L Hct 34.2 L MCV 89.1 MCH 28.4 MCHC 31.9 L RDW 14.5 RDW Differential 46.1 H Plt Count 282 MPV 10.7 Immature Gran % (Auto) 0.300 Neut % (Auto) 71.9 H Lymph % (Auto) 22.1 [place] % (Auto) 5.7 Eos % (Auto) 0.0 Baso % (Auto) 0.0 Absolute Neuts (auto) 7.3 Absolute Lymphs (auto) 2.24 Total Counted Not Reportable PT 13.3 INR 1.0 APTT 25.1 Sodium Potassium Chloride Carbon Dioxide Anion Gap BUN Creatinine Estim Creat Clear Calc Est GFR (MDRD) Af Amer Est GFR (MDRD) Non-Af BUN/Creatinine Ratio Glucose Calcium Fld Polynuclear WBCs # Fld Polynuclear WBCs % Fluid Mononuclear WBCs Fld Mononuclear WBCs % CSF Appearance CSF Color CSF WBC CSF RBC CSF Cell Count Tube # CSF Total Cell Counted CSF Comment CSF Glucose CSF Total Protein CSF Cryptococcus Ag Pending CSF VZV DNA (PCR) Lyme Total Antibody Pending CMV DNA Qual PCR Pending [place] RNA (RT-PCR) [place] Interp Enterovirus RNA (PCR) Herpes Simplex Culture HSV I DNA PCR HSV II DNA PCR HSV Final Result Miscellaneous Cytology Miscellaneous Test 01/02/18 01/02/18 01/02/18 05:10 09:50 09:50 WBC RBC Hgb Hct MCV MCH MCHC RDW RDW Differential Plt Count MPV Immature Gran % (Auto) Neut % (Auto) Lymph % (Auto) [place] % (Auto) Eos % (Auto) Baso % (Auto) Absolute Neuts (auto) Absolute Lymphs (auto) Total Counted PT INR APTT Sodium 142 Potassium 3.8 Chloride 108 H Carbon Dioxide 26.0 Anion Gap 8 BUN 20 H Creatinine 0.67 Estim Creat Clear Calc 100.31 Est GFR (MDRD) Af Amer 123 Est GFR (MDRD) Non-Af 102 BUN/Creatinine Ratio 29.9 H Glucose 91 Calcium 8.2 L Fld Polynuclear WBCs # Fld Polynuclear WBCs % Fluid Mononuclear WBCs Fld Mononuclear WBCs % CSF Appearance CSF Color CSF WBC CSF RBC CSF Cell Count Tube # CSF Total Cell Counted CSF Comment CSF Glucose 54 CSF Total Protein 31.0 CSF Cryptococcus Ag CSF VZV DNA (PCR) Pending Lyme Total Antibody CMV DNA Qual PCR [place] RNA (RT-PCR) Pending [place] Interp Pending Enterovirus RNA (PCR) Pending Herpes Simplex Culture Pending HSV I DNA PCR Pending HSV II DNA PCR Pending HSV Final Result Pending Miscellaneous Cytology Miscellaneous Test 01/02/18 01/02/18 01/02/18 09:50 09:50 09:50 WBC RBC Hgb Hct MCV MCH MCHC RDW RDW Differential Plt Count MPV Immature Gran % (Auto) Neut % (Auto) Lymph % (Auto) [place] % (Auto) Eos % (Auto) Baso % (Auto) Absolute Neuts (auto) Absolute Lymphs (auto) Total Counted PT INR APTT Sodium Potassium Chloride Carbon Dioxide Anion Gap BUN Creatinine Estim Creat Clear Calc Est GFR (MDRD) Af Amer Est GFR (MDRD) Non-Af BUN/Creatinine Ratio Glucose Calcium Fld Polynuclear WBCs # 0.001 Fld Polynuclear WBCs % 33.3 Fluid Mononuclear WBCs 0.002 Fld Mononuclear WBCs % 66.7 CSF Appearance CLEAR CSF Color COLORLESS CSF WBC 0.003 H CSF RBC 4 H CSF Cell Count Tube # 4 CSF Total Cell Counted 0.003 H CSF Comment May follow CSF Glucose CSF Total Protein CSF Cryptococcus Ag CSF VZV DNA (PCR) Lyme Total Antibody CMV DNA Qual PCR [place] RNA (RT-PCR) [place] Interp Enterovirus RNA (PCR) Herpes Simplex Culture HSV I DNA PCR HSV II DNA PCR HSV Final Result Miscellaneous Cytology Pending Miscellaneous Test Pending Medical Necessity - Tobacco Use Smoking Status: Never smoker Tobacco Use: Non-smoker Assessment/Plan All Active Problems Headache (Acute) Chest pain (Acute) 1. Intractable headache- not improved. Neuro consulted. Avoid narcotics. MRI negative. IV Decadron, IV Depakote discontinued. Patient started on low-dose Neurontin. Received mag sulfate x2. MRV normal. Patient underwent LP this morning which looks normal thus far. WBC 0.003. Serologies pending. Increase Elavil dose to 50 mg twice daily. Added DHE. Follow-up with neurology in 6 weeks as outpatient. Ophthalmology follow up as outpatient. 2. Chest pain-Trop neg. EKG without ST-T changes. 3. Chronic LLE lymphedema-continue home hydrochlorthiazide regimen. 4. GERD-continue home PPI and Carafate. 5. Obstructive sleep apnea-CPAP nightly. 6. Obesity- Encourage diet and lifestyle modifications. Nutrition consult. DVT prophylaxis-Lovenox subcu, SCDs. This patient was seen by CHARLENE Mg under the supervision of Dr. Nassar. <Arjun Nassar - Last Filed: 01/02/18 17:27> Subjective: Patient is to complain of severe headache when asked about. Otherwise she appears to be resting comfortably. LP was done and CSF analysis seems to be normal range. Patient seen by neurologist. - Physical Exam General: Alert, Oriented x3, Cooperative HEENT: Atraumatic, PERRLA, EOMI, Normocephalic Neck: Supple, No JVD, Negative Carotid Bruits Lungs: Clear to auscultation, Normal air movement Cardiovascular: Regular rate, Regular Rhythm, Normal S1, Normal S2, No murmurs Abdomen: Bowel Sounds Present, Soft, Non Tender, Obese Extremities: No edema, Capillary Refill Less than 3 Seconds Skin: No rashes, No breakdown Musculoskeletal: No Tenderness to Palpation of Joints or Extremities Neurological: Cranial nerves II-XII grossly intact Psych/Mental Status: Normal Affect, Appropriate Vital Signs Temp Pulse Resp BP Pulse Ox 98.5 F 47 L 16 108/50 L 97 01/02/18 14:01 01/02/18 15:59 01/02/18 14:01 01/02/18 14:01 01/02/18 14:01 Oxygen Delivery Method Room Air Weight: 241 lb 10.026 oz Body Mass Index (BMI) 37.9 Intake and Output for Last 24 Hours 12/31/17 01/01/18 01/02/18 23:59 23:59 23:59 Intake Total 4195 / 4195 2511 / 2511 2776 / 2776 Balance 4195 / 4195 2511 / 2511 2776 / 2776 Microbiology Past 72 Hours 01/02/18 09:50 Gram Stain - Final Csf, Spinal Fluid Laboratory Tests Past 24 Hrs 12/31/17 01/02/18 01/02/18 18:45 05:10 05:10 WBC 10.1 RBC 3.84 L Hgb 10.9 L Hct 34.2 L MCV 89.1 MCH 28.4 MCHC 31.9 L RDW 14.5 RDW Differential 46.1 H Plt Count 282 MPV 10.7 Immature Gran % (Auto) 0.300 Neut % (Auto) 71.9 H Lymph % (Auto) 22.1 [place] % (Auto) 5.7 Eos % (Auto) 0.0 Baso % (Auto) 0.0 Absolute Neuts (auto) 7.3 Absolute Lymphs (auto) 2.24 Total Counted Not Reportable PT 13.3 INR 1.0 APTT 25.1 Sodium Potassium Chloride Carbon Dioxide Anion Gap BUN Creatinine Estim Creat Clear Calc Est GFR (MDRD) Af Amer Est GFR (MDRD) Non-Af BUN/Creatinine Ratio Glucose Calcium Fld Polynuclear WBCs # Fld Polynuclear WBCs % Fluid Mononuclear WBCs Fld Mononuclear WBCs % CSF Appearance CSF Color CSF WBC CSF RBC CSF Cell Count Tube # CSF Total Cell Counted CSF Comment CSF Glucose CSF Total Protein CSF Cryptococcus Ag Pending CSF VZV DNA (PCR) Lyme Total Antibody Pending CMV DNA Qual PCR Pending [place] RNA (RT-PCR) [place] Interp Enterovirus RNA (PCR) Herpes Simplex Culture HSV I DNA PCR HSV II DNA PCR HSV Final Result Miscellaneous Cytology Miscellaneous Test 01/02/18 01/02/18 01/02/18 05:10 09:50 09:50 WBC RBC Hgb Hct MCV MCH MCHC RDW RDW Differential Plt Count MPV Immature Gran % (Auto) Neut % (Auto) Lymph % (Auto) [place] % (Auto) Eos % (Auto) Baso % (Auto) Absolute Neuts (auto) Absolute Lymphs (auto) Total Counted PT INR APTT Sodium 142 Potassium 3.8 Chloride 108 H Carbon Dioxide 26.0 Anion Gap 8 BUN 20 H Creatinine 0.67 Estim Creat Clear Calc 100.31 Est GFR (MDRD) Af Amer 123 Est GFR (MDRD) Non-Af 102 BUN/Creatinine Ratio 29.9 H Glucose 91 Calcium 8.2 L Fld Polynuclear WBCs # Fld Polynuclear WBCs % Fluid Mononuclear WBCs Fld Mononuclear WBCs % CSF Appearance CSF Color CSF WBC CSF RBC CSF Cell Count Tube # CSF Total Cell Counted CSF Comment CSF Glucose 54 CSF Total Protein 31.0 CSF Cryptococcus Ag CSF VZV DNA (PCR) Pending Lyme Total Antibody CMV DNA Qual PCR [place] RNA (RT-PCR) Pending [place] Interp Pending Enterovirus RNA (PCR) Pending Herpes Simplex Culture Pending HSV I DNA PCR Pending HSV II DNA PCR Pending HSV Final Result Pending Miscellaneous Cytology Miscellaneous Test 01/02/18 01/02/18 01/02/18 09:50 09:50 09:50 WBC RBC Hgb Hct MCV MCH MCHC RDW RDW Differential Plt Count MPV Immature Gran % (Auto) Neut % (Auto) Lymph % (Auto) [place] % (Auto) Eos % (Auto) Baso % (Auto) Absolute Neuts (auto) Absolute Lymphs (auto) Total Counted PT INR APTT Sodium Potassium Chloride Carbon Dioxide Anion Gap BUN Creatinine Estim Creat Clear Calc Est GFR (MDRD) Af Amer Est GFR (MDRD) Non-Af BUN/Creatinine Ratio Glucose Calcium Fld Polynuclear WBCs # 0.001 Fld Polynuclear WBCs % 33.3 Fluid Mononuclear WBCs 0.002 Fld Mononuclear WBCs % 66.7 CSF Appearance CLEAR CSF Color COLORLESS CSF WBC 0.003 H CSF RBC 4 H CSF Cell Count Tube # 4 CSF Total Cell Counted 0.003 H CSF Comment May follow CSF Glucose CSF Total Protein CSF Cryptococcus Ag CSF VZV DNA (PCR) Lyme Total Antibody CMV DNA Qual PCR [place] RNA (RT-PCR) [place] Interp Enterovirus RNA (PCR) Herpes Simplex Culture HSV I DNA PCR HSV II DNA PCR HSV Final Result Miscellaneous Cytology Pending Miscellaneous Test Pending Assessment/Plan This patient was seen in conjunction with Kiera SINGH. I have independently interviewed and examined the patient and reviewed pertinent history, examination findings, laboratory and plan of management. I have reviewed the note and agree with the documented findings with the few additional points. In brief, patient is admitted for intractable headache, exact etiology unclear. She denies history of chronic headache. Has associated mild photophobia. Earlier, patient had IV Depakote and Decadron, IV magnesium sulfate and Toradol but did not respond. N patient was seen by neurologist, Dr. Osuna and then Dr. White. CT head, CTA of head and neck are normal. Brain MRI, unenhanced also reported normal. MRV normal. Furthermore, patient had LP and CSF analysis seems in normal range. Serologies are pending. Patient was started on amitriptyline and DHE by neurologist. I have discussed my assessment with Kiera SINGH and orders have been reviewed. Code Visit Inpatient E&M: 50888 Subs Hosp L3
[2018-01-02] MEDS: Gabapentin 300 MG Capsule PO ×2 (13:47→18:34)
[2018-01-02] MEDS: Dihydroergotamine 1 MG/ML Ampul 0.4 MG IV ×2 (13:47→18:34)
[2018-01-02] MEDS: Metoclopramide 10 MG/2 ML Vial IV ×2 (13:47→18:34)
[2018-01-02] MEDS: Amitriptyline 25 MG Tablet 50 MG PO (22:22)
[2018-01-03] VITALS (8 sets, daily range): BP systolic 99–113; BP diastolic 40–45; PULSE 44–57; RESP 12–16; TEMP 36.5–36.9; O2SAT 97–100
[2018-01-03] MEDS: Dihydroergotamine 1 MG/ML Ampul 0.4 MG IV ×2 (00:44→06:11)
[2018-01-03] MEDS: Metoclopramide 10 MG/2 ML Vial IV ×2 (00:45→06:11)
[2018-01-03] MEDS: 0.9% NaCl Peripheral Flush Adult/Peds IV (00:45)
[2018-01-03] MEDS: 0.9% Normal Saline 1,000 ML 125 ML IV (04:40)
[2018-01-03] MEDS: Sucralfate 1 GM Tablet PO (06:10)
[2018-01-03] MEDS: Pantoprazole Sodium 20 MG Tablet PO (09:14)
[2018-01-03] MEDS: Amitriptyline 25 MG Tablet 50 MG PO (09:14)
[2018-01-03] MEDS: Enoxaparin 40 MG/0.4 ML Syringe SC (09:14)
[2018-01-03] MEDS: Triamterene 37.5MG/Hctz 25MG Capsule 1 CAP PO (09:14)
[2018-01-03] MEDS: Gabapentin 300 MG Capsule PO (09:14)
[2018-01-03] MEDS: Topiramate 25 MG Tablet PO (09:16)
--- NOTE | 2018-01-03 10:03 | PCM.DC ---
- Discharge Diagnoses Current Active Problems: Current Active and Chronic Problems Obesity (BMI 30-39.9) (Chronic) HTN (hypertension) (Chronic) Chronic acquired lymphedema (Chronic) Headache (Acute) You will use the following diet at home:: No restrictions Discharge Activity: Return to Normal Activity Call your doctor if you observe: Shortness of breath, Dizziness, Fainting spells, Chest pain Allergies/Adverse Reactions: Allergies No Known Allergies Allergy (Verified 12/29/17 14:59) Medications to take at Discharge Sucralfate 1 gm PO 4X/DAY 08/13/16 Omeprazole 20 mg PO BID 12/29/17 Triamterene/Hydrochlorothiazid [Triamterene-Hctz 37.5-25 mg Tb] 1 tab PO DAILY 12/29/17 Amitriptyline HCl [Elavil] 50 mg PO BID #120 tablet 01/03/18 Topiramate [Topamax] 25 mg PO BID #60 tablet 01/03/18 The following prescriptions were given: Amitriptyline HCl [Elavil] 50 mg PO BID #120 tablet Topiramate [Topamax] 25 mg PO BID #60 tablet Primary Care Physician: Em Santos MD [Primary Care Provider] - Please follow up with your Primary Care Physician in: 3-5 Days Test Results: Test results from this visit will be discussed in further detail at your follow-up appointment, if applicable. Please Follow Up With: Giovanni Osuna MD When: 2-4 Weeks Proposed Discharge Date: 01/03/18
--- NOTE | 2018-01-03 10:08 | DCINST_ITS ---
- Discharge Diagnoses Current Active Problems: Current Active and Chronic Problems Obesity (BMI 30-39.9) (Chronic) HTN (hypertension) (Chronic) Chronic acquired lymphedema (Chronic) Headache (Acute) You will use the following diet at home:: No restrictions Discharge Activity: Return to Normal Activity Call your doctor if you observe: Shortness of breath, Dizziness, Fainting spells, Chest pain Allergies/Adverse Reactions: Allergies No Known Allergies Allergy (Verified 12/29/17 14:59) Medications to take at Discharge Sucralfate 1 gm PO 4X/DAY 08/13/16 Omeprazole 20 mg PO BID 12/29/17 Triamterene/Hydrochlorothiazid [Triamterene-Hctz 37.5-25 mg Tb] 1 tab PO DAILY 12/29/17 Amitriptyline HCl [Elavil] 50 mg PO BID #120 tablet 01/03/18 Topiramate [Topamax] 25 mg PO BID #60 tablet 01/03/18 The following prescriptions were given: Amitriptyline HCl [Elavil] 50 mg PO BID #120 tablet Topiramate [Topamax] 25 mg PO BID #60 tablet Primary Care Physician: Em Santos MD [Primary Care Provider] - Please follow up with your Primary Care Physician in: 3-5 Days Test Results: Test results from this visit will be discussed in further detail at your follow- up appointment, if applicable. Please Follow Up With: Giovanni Osuna MD When: 2-4 Weeks Proposed Discharge Date: 01/03/18
--- NOTE | 2018-01-03 10:08 | PCM.DC.SUM ---
<Kiera Wang - Last Filed: 01/03/18 11:52> Discharge Date and Diagnosis Date of Admission: 12/29/17 Date of Discharge: 01/03/18 - Primary Discharge Diagnosis Active and Suspected Problems 1. Intractable headache, status migrainosus 2. Chest pain, ACS ruled out 3. Chronic LLE lymphedema 4. GERD 5. RAFAEL 6. Obesity - Secondary Discharge Diagnosis Chronic Problems Obesity (BMI 30-39.9) (Chronic) HTN (hypertension) (Chronic) Chronic acquired lymphedema (Chronic) Epistaxis, recurrent (Chronic) Obstructive sleep apnea (Chronic) Constipation (Chronic) Morbid obesity (Chronic) Depression (Chronic) Hospital Course and Treatment Imaging Results: Diagnostic Data Brain CT 12/29/17 15:23 IMPRESSION: Normal unenhanced CT scan of the brain. Electronically Signed: Justus Pace DO at 16:11 EDT Tel , Service support , Head CTA 12/29/17 16:03 IMPRESSION: Normal anatomic variant solomon of Perdomo without a demonstrated aneurysm or hemodynamically significant stenosis. Electronically Signed: Justus Pace DO at 18:23 EDT Tel , Service support , Neck CTA 12/29/17 16:03 IMPRESSION: Normal bilateral cervical carotid and vertebral arteries. Electronically Signed: Katrina Sotelo MD at 17:31 EDT Tel , Service support , Brain MRI 12/30/17 11:49 IMPRESSION: Normal unenhanced MRV of the brain. Electronically Signed: Katrina Sotelo MD at 16:06 EDT Tel , Service support , Lumbar Puncture Fluoroscopy 01/02/18 09:20 IMPRESSION: Successful fluoroscopic-guided lumbar puncture. Electronically Signed: Dawood Strong MD at 10:41 EDT Tel [phone], Service support , Dr. Osuna/Dr. White- Neurology Operations: None Procedures: - - LP Summary of Care Provided: The patient is a 42 year old F admitted 12/29/2017 due to intractable headache. 1. Status migrainosus- Neuro consulted during admission. MRI negative. MRV negative. Patient treated with IV Decadron, IV Depakote, gabapentin, DHEA injection. Received mag sulfate x2. Patient underwent LP which was normal. Serologies pending. Continue Elavil 50 mg twice daily at DC. Continue Topamax 25 mg twice daily at discharge. Follow-up with neurology in 2-4 weeks as outpatient. Ophthalmology follow up as outpatient within 1 Week. Follow-up with primary care physician in 3-5 days. 2. Chest pain-Trop neg. EKG without ST-T changes. 3. Chronic LLE lymphedema-continue home hydrochlorthiazide regimen. 4. GERD-continue home PPI and Carafate. 5. Obstructive sleep apnea-CPAP nightly. 6. Obesity- Encourage diet and lifestyle modifications. General: Alert, Oriented x3, Cooperative, No apparent distress HEENT: Atraumatic, PERRLA, EOMI, Normocephalic Neck: Supple, No JVD, Negative Carotid Bruits Lungs: Clear to auscultation, Normal air movement Cardiovascular: Regular rate, Regular Rhythm, Normal S1, Normal S2, No murmurs Abdomen: Bowel Sounds Present, Soft, Non Tender, Non-Distended, Obese Extremities: No clubbing, No cyanosis, No edema, Capillary Refill Less than 3 Seconds Skin: No rashes, No breakdown Musculoskeletal: No Tenderness to Palpation of Joints or Extremities Neurological: Cranial nerves II-XII grossly intact, Neuro grossly intact Psych/Mental Status: Normal Affect, Appropriate Patient seen exam prior to discharge. Physical assessment as noted above. Patient stable for discharge home with further follow-up with primary care physician and neurology. This patient was seen by CHARLENE Mg under the supervision of Dr. Nassar. Discharge Diet: 1800 Calorie Control Diet Discharge Activity: Return to Normal Activity Call your doctor if you observe: Shortness of breath, Dizziness, Fainting spells, Chest pain Home Medications: Medications to take at Discharge Sucralfate 1 gm PO 4X/DAY 08/13/16 Omeprazole 20 mg PO BID 12/29/17 Triamterene/Hydrochlorothiazid [Triamterene-Hctz 37.5-25 mg Tb] 1 tab PO DAILY 12/29/17 Amitriptyline HCl [Elavil] 50 mg PO QHS #60 tablet 01/03/18 Escitalopram Oxalate [Lexapro] 10 mg PO DAILY #30 tablet 01/03/18 Topiramate [Topamax] 25 mg PO BID #60 tablet 01/03/18 Following Prescrptions Were Given to Patient: Amitriptyline HCl [Elavil] 50 mg PO QHS #60 tablet Escitalopram Oxalate [Lexapro] 10 mg PO DAILY #30 tablet Topiramate [Topamax] 25 mg PO BID #60 tablet Primary Care Physician: Em Santos MD [Primary Care Provider] - Please follow up with your Primary Care Physician in: 3-5 Days Please Follow Up With: Giovanni Osuna MD When: 2-4 Weeks Please Follow Up With: [facility] When: Within 1 Week Disposition: Home Minutes spent on discharge:: 35 Patient Condition:: Stable Medical Necessity - Tobacco Use Smoking Status: Never smoker Tobacco Use: Non-smoker Meaningful Use Info Meaningful Use Diagnoses (Choose all that apply): None applicable <CesarioShawneeArjun - Last Filed: 01/03/18 16:40> Discharge Date and Diagnosis - Secondary Discharge Diagnosis Chronic Problems Obesity (BMI 30-39.9) (Chronic) HTN (hypertension) (Chronic) Chronic acquired lymphedema (Chronic) Epistaxis, recurrent (Chronic) Obstructive sleep apnea (Chronic) Constipation (Chronic) Morbid obesity (Chronic) Depression (Chronic) Hospital Course and Treatment Summary of Care Provided: Seen and examined. Patient is to complain of headache though it is better, most probably stress related. General: Alert, Oriented x3, Cooperative HEENT: Atraumatic, PERRLA, EOMI, Normocephalic Neck: Supple, No JVD, Negative Carotid Bruits Lungs: Clear to auscultation, Normal air movement Cardiovascular: Regular rate, Regular Rhythm, Normal S1, Normal S2, No murmurs Abdomen: Bowel Sounds Present, Soft, Non Tender, Obese Extremities: No edema, Capillary Refill Less than 3 Seconds Skin: No rashes, No breakdown Musculoskeletal: No Tenderness to Palpation of Joints or Extremities Neurological: Cranial nerves II-XII grossly intact Psych/Mental Status: Normal Affect, Appropriate This patient was seen in conjunction with Kiera SINGH. I have independently interviewed and examined the patient and reviewed pertinent history, examination findings, laboratory and plan of management. I have reviewed the note and agree with the documented findings with the few additional points. In brief, patient is admitted for intractable headache, exact etiology unclear. She denies history of chronic headache. Has associated mild photophobia. Earlier, patient had IV Depakote and Decadron, IV magnesium sulfate and Toradol but did not respond. N patient was seen by neurologist, Dr. Osuna and then Dr. White. CT head, CTA of head and neck are normal. Brain MRI, unenhanced also reported normal. MRV normal. Furthermore, patient had LP and CSF analysis seems in normal range. Serologies are pending. Patient was started on amitriptyline and DHE by neurologist. Patient did not respond with dihydroergotamine therefore discontinued. Patient is discharged on amitriptyline and Topamax. I have discussed my assessment with Kiera SINGH and orders have been reviewed. [] Code Visit Inpatient E&M: 64051 Disch Hosp
--- NOTE | 2018-01-03 10:13 | DS.PCM_ITS ---
Addendum entered and electronically signed by CHARLENE Mg 01/03/18 11:52: Code Visit Home regimen adjusted per neurology. Patient started on Lexapro 10 mg daily. Elavil reduced to 50 mg nightly only. Original Note: <Kiera Wang - Last Filed: 01/03/18 11:52> Discharge Date and Diagnosis Date of Admission: 12/29/17 Date of Discharge: 01/03/18 - Primary Discharge Diagnosis Active and Suspected Problems 1. Intractable headache, status migrainosus 2. Chest pain, ACS ruled out 3. Chronic LLE lymphedema 4. GERD 5. RAFAEL 6. Obesity - Secondary Discharge Diagnosis Chronic Problems Obesity (BMI 30-39.9) (Chronic) HTN (hypertension) (Chronic) Chronic acquired lymphedema (Chronic) Epistaxis, recurrent (Chronic) Obstructive sleep apnea (Chronic) Constipation (Chronic) Morbid obesity (Chronic) Depression (Chronic) Hospital Course and Treatment Imaging Results: Diagnostic Data Brain CT 12/29/17 15:23 IMPRESSION: Normal unenhanced CT scan of the brain. Electronically Signed: Justus Pace DO at 16:11 EDT Tel , Service support , Head CTA 12/29/17 16:03 IMPRESSION: Normal anatomic variant lower brule of Perdomo without a demonstrated aneurysm or hemodynamically significant stenosis. Electronically Signed: Justus Pace DO at 18:23 EDT Tel , Service support , Neck CTA 12/29/17 16:03 IMPRESSION: Normal bilateral cervical carotid and vertebral arteries. Electronically Signed: Katrina Sotelo MD at 17:31 EDT Tel , Service support , Brain MRI 12/30/17 11:49 IMPRESSION: Normal unenhanced MRV of the brain. Electronically Signed: Katrina Sotelo MD at 16:06 EDT Tel , Service support , Lumbar Puncture Fluoroscopy 01/02/18 09:20 IMPRESSION: Successful fluoroscopic-guided lumbar puncture. Electronically Signed: Dawood Strong MD at 10:41 EDT Tel [phone], Service support , Dr. Osuna/Dr. White- Neurology Operations: None Procedures: - - LP Summary of Care Provided: The patient is a 42 year old F admitted 12/29/2017 due to intractable headache. 1. Status migrainosus- Neuro consulted during admission. MRI negative. MRV negative. Patient treated with IV Decadron, IV Depakote, gabapentin, DHEA injection. Received mag sulfate x2. Patient underwent LP which was normal. Serologies pending. Continue Elavil 50 mg twice daily at DC. Continue Topamax 25 mg twice daily at discharge. Follow-up with neurology in 2-4 weeks as outpatient. Ophthalmology follow up as outpatient within 1 Week. Follow-up with primary care physician in 3-5 days. 2. Chest pain-Trop neg. EKG without ST-T changes. 3. Chronic LLE lymphedema-continue home hydrochlorthiazide regimen. 4. GERD-continue home PPI and Carafate. 5. Obstructive sleep apnea-CPAP nightly. 6. Obesity- Encourage diet and lifestyle modifications. General: Alert, Oriented x3, Cooperative, No apparent distress HEENT: Atraumatic, PERRLA, EOMI, Normocephalic Neck: Supple, No JVD, Negative Carotid Bruits Lungs: Clear to auscultation, Normal air movement Cardiovascular: Regular rate, Regular Rhythm, Normal S1, Normal S2, No murmurs Abdomen: Bowel Sounds Present, Soft, Non Tender, Non-Distended, Obese Extremities: No clubbing, No cyanosis, No edema, Capillary Refill Less than 3 Seconds Skin: No rashes, No breakdown Musculoskeletal: No Tenderness to Palpation of Joints or Extremities Neurological: Cranial nerves II-XII grossly intact, Neuro grossly intact Psych/Mental Status: Normal Affect, Appropriate Patient seen exam prior to discharge. Physical assessment as noted above. Patient stable for discharge home with further follow-up with primary care physician and neurology. This patient was seen by HCARLENE Mg under the supervision of Dr. Nassar. Discharge Diet: 1800 Calorie Control Diet Discharge Activity: Return to Normal Activity Call your doctor if you observe: Shortness of breath, Dizziness, Fainting spells, Chest pain Home Medications: Medications to take at Discharge Sucralfate 1 gm PO 4X/DAY 08/13/16 Omeprazole 20 mg PO BID 12/29/17 Triamterene/Hydrochlorothiazid [Triamterene-Hctz 37.5-25 mg Tb] 1 tab PO DAILY 12/29/17 Amitriptyline HCl [Elavil] 50 mg PO QHS #60 tablet 01/03/18 Escitalopram Oxalate [Lexapro] 10 mg PO DAILY #30 tablet 01/03/18 Topiramate [Topamax] 25 mg PO BID #60 tablet 01/03/18 Following Prescrptions Were Given to Patient: Amitriptyline HCl [Elavil] 50 mg PO QHS #60 tablet Escitalopram Oxalate [Lexapro] 10 mg PO DAILY #30 tablet Topiramate [Topamax] 25 mg PO BID #60 tablet Primary Care Physician: Em Santos MD [Primary Care Provider] - Please follow up with your Primary Care Physician in: 3-5 Days Please Follow Up With: Giovanni Osuna MD When: 2-4 Weeks Please Follow Up With: [facility] When: Within 1 Week Disposition: Home Minutes spent on discharge:: 35 Patient Condition:: Stable Medical Necessity - Tobacco Use Smoking Status: Never smoker Tobacco Use: Non-smoker Meaningful Use Info Meaningful Use Diagnoses (Choose all that apply): None applicable <Arjun Nassar - Last Filed: 01/03/18 16:40> Discharge Date and Diagnosis - Secondary Discharge Diagnosis Chronic Problems Obesity (BMI 30-39.9) (Chronic) HTN (hypertension) (Chronic) Chronic acquired lymphedema (Chronic) Epistaxis, recurrent (Chronic) Obstructive sleep apnea (Chronic) Constipation (Chronic) Morbid obesity (Chronic) Depression (Chronic) Hospital Course and Treatment Summary of Care Provided: Seen and examined. Patient is to complain of headache though it is better, most probably stress related. General: Alert, Oriented x3, Cooperative HEENT: Atraumatic, PERRLA, EOMI, Normocephalic Neck: Supple, No JVD, Negative Carotid Bruits Lungs: Clear to auscultation, Normal air movement Cardiovascular: Regular rate, Regular Rhythm, Normal S1, Normal S2, No murmurs Abdomen: Bowel Sounds Present, Soft, Non Tender, Obese Extremities: No edema, Capillary Refill Less than 3 Seconds Skin: No rashes, No breakdown Musculoskeletal: No Tenderness to Palpation of Joints or Extremities Neurological: Cranial nerves II-XII grossly intact Psych/Mental Status: Normal Affect, Appropriate This patient was seen in conjunction with Kiera SINGH. I have independently interviewed and examined the patient and reviewed pertinent history, examination findings, laboratory and plan of management. I have reviewed the note and agree with the documented findings with the few additional points. In brief, patient is admitted for intractable headache, exact etiology unclear. She denies history of chronic headache. Has associated mild photophobia. Earlier, patient had IV Depakote and Decadron, IV magnesium sulfate and Toradol but did not respond. N patient was seen by neurologist, Dr. Osuna and then Dr. White. CT head, CTA of head and neck are normal. Brain MRI, unenhanced also reported normal. MRV normal. Furthermore, patient had LP and CSF analysis seems in normal range. Serologies are pending. Patient was started on amitriptyline and DHE by neurologist. Patient did not respond with dihydroergotamine therefore discontinued. Patient is discharged on amitri ptyline and Topamax. I have discussed my assessment with Kiera SINGH and orders have been reviewed. [] Code Visit Inpatient E&M: 33047 Disch Hosp
--- NOTE | 2018-01-03 11:36 | PCM.PN.NEU ---
Subjective: reports headache no change on dhe, 10/11. no n/v. ambulateing ok. mom at bedside - Physical Exam General: Alert, Oriented x3 Neurological: Cranial nerves II-XII grossly intact Psych/Mental Status: Normal Affect Vital Signs Temp Pulse Resp BP Pulse Ox 36.9 C 57 L 16 99/45 L 100 01/03/18 09:10 01/03/18 09:10 01/03/18 09:10 01/03/18 09:10 01/03/18 09:10 Oxygen Delivery Method Room Air Weight: 109.6 kg Body Mass Index (BMI) 37.9 Intake and Output for Last 24 Hours 01/01/18 01/02/18 01/03/18 23:59 23:59 23:59 Intake Total 1 / 2511 5123 / 5123 1930 Balance 2511 / 2511 5123 / 5123 1930 Microbiology Past 72 Hours 01/02/18 09:50 Gram Stain - Final Csf, Spinal Fluid CSF Culture - Preliminary No growth in 24 hours. Final to follow. Current Medications Generic Name Dose Route Start Last Admin Trade Name Freq PRN Reason Stop Dose Admin Acetaminophen 500 mg 01/01/18 11:19 01/02/18 08:09 Tylenol PO 500 mg Q6H PRN PRN Administration PAIN Al Hydroxide/Mg Hydroxide 30 ml 12/29/17 21:03 Mylanta Ii PO Q6H PRN PRN Gastric burning Amitriptyline HCl 50 mg 01/02/18 22:00 01/03/18 09:14 Elavil PO 50 mg BID BRIAN Administration Dihydroergotamine Mesylate 0.4 mg 01/02/18 12:15 01/03/18 06:11 Dhe-45 Injection IV 0.4 mg Q6 BRIAN Administration Enoxaparin Sodium 40 mg 12/30/17 10:00 01/03/18 09:14 Lovenox SC 40 mg DAILY@1000 BRIAN Administration Gabapentin 300 mg 01/02/18 12:15 01/03/18 09:14 Neurontin PO 300 mg TIDCM BRIAN Administration Sodium Chloride 1,000 mls @ 125 mls/hr 12/29/17 21:03 01/03/18 04:40 IV 125 mls/hr .Q8H BRIAN Administration Magnesium Hydroxide 30 ml 12/29/17 21:03 Milk Of Magnesia PO DAILY PRN Constipation Metoclopramide HCl 10 mg 01/02/18 12:30 01/03/18 06:11 Reglan IV 10 mg Q6 BRIAN Administration Ondansetron HCl 4 mg 12/29/17 21:03 Zofran IV Q8H PRN PRN NAUSEA Pantoprazole Sodium 20 mg 12/30/17 10:00 01/03/18 09:14 Protonix PO 20 mg BID BRIAN Administration Sodium Chloride 5 - 30 ml 12/29/17 21:55 01/03/18 00:45 IV 10 ml UD PRN Administration SALINE FLUSH Sucralfate 1 gm 12/29/17 22:00 01/03/18 06:10 Carafate PO 1 gm 1HR_ACHS BRIAN Administration Topiramate 25 mg 01/01/18 22:00 01/03/18 09:16 Topamax PO 25 mg BID BRIAN Administration Triamterene/HCTZ 1 cap 12/30/17 10:00 01/03/18 09:14 Dyazide (G) PO 1 cap DAILY BRIAN Administration Medical Necessity - Tobacco Use Smoking Status: Never smoker Tobacco Use: Non-smoker Assessment/Plan All Active Problems Headache (Acute) Chest pain (Acute) STATUS MIGRANOSUS: LP negative. no benefit from dhe, suspect mostly stress issues add lexapro 10mg continue tpm elavil 50mg qhs f/u op
--- NOTE | 2018-01-03 12:13 | CASEMGMT ---
Utilized hospital assist program for patient. Robina BRAGA MSW
[2018-01-03 13:28] LABS: Pathologist Review Reviewed
[2018-01-04 11:55] LABS: Lyme AB/Total Immuno < 0.91 ISR (0.00-0.90)
[2018-01-11 14:07] LABS: Cryptococcus Antigen CSF Negative (Negative)
[2018-01-11 15:18] LABS: CMV by PCR Negative (Negative)
[2018-01-13 13:10] LABS: HSV 1 By PCR Negative (Negative)
[2018-01-13 13:31] LABS: Enterovirus By PCR Negative (Negative); HSV 2 By PCR Negative (Negative); West Nile Virus Qual by PCR Negative (.)
== END 2018-01-03 12:25 | disposition home or self-care (01) | DRG 103 ==
LOC: ED 19:59 → PCU 20:35
PROVIDERS: Nurse Practitioner Family; Psychiatry & Neurology Neurology; Student in an Organized Health Care Education/Training Program; Admitting Provider Family Medicine; Emergency Provider Emergency Medicine; Family Provider Internal Medicine; PCP Internal Medicine; Visit Provider Internal Medicine
DX: G43.911 Migraine, unspecified, intractable, with status migrainosus (principal); I89.0 Lymphedema, not elsewhere classified; E66.9 Obesity, unspecified; Z68.37 Body mass index [BMI] 37.0-37.9, adult; G47.33 Obstructive sleep apnea (adult) (pediatric); K21.9 Gastro-esophageal reflux disease without esophagitis; Z79.899 Other long term (current) drug therapy; R07.9 Chest pain, unspecified; I10 Essential (primary) hypertension; F32.9 Major depressive disorder, single episode, unspecified
CPT/HCPCS: 36415; 62270; 70450; 70496; 70498; 70544; 70551; 77003; 80048; 81025; 82945; 83735; 84157; 84484; 85025; 85027; 85610; 85652; 85730; 86140; 86618; 87070; 87205; 87496; 87498; 87529; 87798; 87899; 88108; 88305; 88313; 89050; 89051; 93005; 94660; 97802; 99283; J7030; J7050; Q9967; A4216; J1110

== ENCOUNTER 2019-02-19 18:22 | Emergency (ER) | payer MEDICAID, SELFPAY ==
[2019-02-19 18:23] VITALS: BP 143/87; PULSE 88; RESP 14; TEMP 36.2; O2SAT 100; BMI 37.5
--- NOTE | 2019-02-19 18:54 | ED.DCSUM_ITS ---
- ER Visit Summary Date of Service: 02/19/19 Chief Complaint: Left ear pain History of Present Illness: The patient is a [address] Santos. She reports that she has a sharp, stabbing pain in her left ear that began approximately 1 week ago. States is 10-10 worsened to 10 currently. Is worsened by nothing and relieved by nothing. However, she reports she has not taken anything for pain. States that last week she went to urgent care and they gave her ofloxacin drops without a steroid and it does not help. She denies any drainage or discharge from her ear. Patient also reports that she has right ear pain that began 5 days ago as well. She denies any drainage or discharge from this year either. Finally the patient reports that she has had frequent nosebleeds from the left side. Last of these was approximate 30 minutes ago. Lasted 15 minutes. She is been able to control this by stuffing tissue up there. Physical Examination: Vitals: Stable. Afebrile. General: Well-nourished and well-developed. Head: Normocephalic atraumatic. HEENT: Serous effusions behind her TMs bilaterally. The external auditory canals are normal bilaterally. There is no erythema, exudate, or swelling. She has no pain with movement of her pinna or tragus bilaterally. I do not think she has an otitis externa. Exam of her nose shows her to have fresh blood in the left nares. There is a source of bleeding on the anterior portion of the nasal septum. There is no active bleeding. Neck: Supple, no lymphadenopathy. No JVD. Nontender. Cardiovascular: Regular rate and rhythm. No murmurs. Respiratory: No respiratory distress. Clear to auscultation bilaterally. Abdominal: Soft, nontender, nondistended, normal bowel sounds. No guarding, rebound, or peritoneal signs. Back: Nontender. Extremities: Nontender, no edema. Skin: Normal color, no rash. Neurologic: Alert and oriented ?3. Cranial nerves II through XII are intact. Normal strength and sensation. Psych: Normal affect. Emergency Department Course and Treatment: Had a prolonged discussion with patient about treatment of the serous effusions of her ear. I do not think that an antibiotic is going to be helpful. In fact I instructed her to stop the ofloxacin drops. I also discussed there is symptomatic care for her nosebleed including a humidifier and antibiotic ointment to the nasal septum. Treatment Plan: Patient will be discharged instructions to follow-up Dr. Young in 1 week if not improving. Return to the emergency department for any worsening symptoms. Disposition: To home in improved and stable condition. Impression: 1. Left ear pain. 2. Bilateral serous effusions. 3. Epistaxis on left, resolved. This note was generated with [employer] dictation software. It may contain incorrect words, spelling, and punctuation that were not noted in review of the chart prior to signing ED Disposition - Plan for ED Patient: Disposition: Home or Assisted Living Instructions: Nosebleed, EARACHE w/o Infection (Adult) Referrals: David Young MD [STAFF PHYSICIAN] - 1 Week if not improving
[2019-02-19] MEDS: Acetaminophen 500 MG Tablet 1000 MG PO (19:06)
[2019-02-19 19:07] VITALS: PULSE 87; RESP 14; O2SAT 97
== END 2019-02-19 19:14 | disposition home or self-care (01) ==
LOC: ED 18:56
PROVIDERS: Emergency Provider Emergency Medicine; Family Provider Internal Medicine; PCP Internal Medicine
DX: H65.93 Unspecified nonsuppurative otitis media, bilateral (principal); H92.02 Otalgia, left ear; R04.0 Epistaxis
CPT/HCPCS: 99282

== ENCOUNTER 2019-04-17 20:00 | Emergency (ER) | payer MEDICAID, SELFPAY ==
[2019-04-17 20:01] VITALS: BP 141/62; PULSE 68; RESP 18; TEMP 36.6; O2SAT 99; BMI 37.4
--- NOTE | 2019-04-17 21:06 | EKG12_ITS ---
Test Reason : AR PAIN Blood Pressure : / mmHG Vent. Rate : 053 BPM Atrial Rate : 053 BPM P-R Int : 148 ms QRS Dur : 084 ms QT Int : 454 ms P-R-T Axes : 026 012 013 degrees QTc Int : 426 ms Sinus bradycardia Otherwise normal ECG Confirmed by KONSTANTIN HARRIS, SERGIO ([id number]), rewrite editor QI WHITFIELD ([id number]) on 04/20/2019 9:58:08 AM Referred By: SIMON Confirmed By:SHERWIN PRYOR MD
[2019-04-17] MEDS: Ibuprofen 400 MG Tablet 800 MG PO (21:29)
--- NOTE | 2019-04-17 21:34 | RAD_ITS ---
STUDY: X-RAY CHEST REASON FOR EXAM: Female, 43 years old. CHEST PAIN TECHNIQUE: Frontal and lateral views of the chest. COMPARISON: CTA chest March 14, 2017 FINDINGS: The lungs are clear and expanded. There is no demonstrated pleural abnormality. Normal size heart. Normal mediastinum and allison. Normal visualized pulmonary arteries. Normal visualized aortic arch and descending thoracic aorta. Normal visualized thoracic spine. Normal visualized ribs, clavicles, and shoulders. There is no demonstrated abnormality of the visualized soft tissue structures of the upper abdomen. RAD/Chest PA and Lateral IMPRESSION: Normal x-ray examination of the chest. Electronically Signed: Ryan Matson MD at 22:11 EST , Service support ,
--- NOTE | 2019-04-17 22:36 | ED.VISSUMM ---
- ER Visit Summary Date of Service: 04/17/19 Chief Complaint: Ear pain and chest pain History of Present Illness: The patient is a 43 F who presents with bilateral ear pain that has been getting worse over the past 2 months. Patient states she developed chest pain tonight. Patient states the pain in her ear is a stabbing and aching. Patient describes the pain in her chest as sharp. Patient states the pain in her chest is worse with deep breathing. Patient states nothing makes her ear pain better or worse. Patient denies any hearing changes or tinnitus. Patient admits to some nausea but denies any vomiting. Patient denies any fevers or chills. Physical Examination: Vital signs are stable. Patient is afebrile. Patient is in no acute distress. Oral mucosa is pink and moist. Tympanic membranes are clear bilaterally. Neck is supple. Trachea is midline. There is no JVD. Heart was regular rate and rhythm. Lungs are clear and equal bilaterally. There is some reproducible tenderness over the left anterior chest wall. Abdomen is soft. Bowel sounds are normal. There is no tenderness. Cranial nerves II through XII are intact. There are no focal motor or sensory deficits noted. Extremities are intact. There is no edema or calf tenderness. Test Results: EKG showed sinus rhythm with a rate of 53. There are no acute ST or T wave changes. This was unchanged compared to previous EKG dated 01/02/2018. PA and lateral chest x-ray was obtained. There is no acute cardiopulmonary process. These were interpreted by the radiologist and myself. Emergency Department Course and Treatment: Patient was given a dose of ibuprofen here. Patient was sleeping on reevaluation. Patient was instructed to continue taking ibuprofen at home as needed for pain. Patient was instructed to follow-up with her primary care physician in 5 to 7 days. Patient was advised she may need to see an ENT physician for her persistent ear pain. Patient understood and was agreeable with the plan. All questions were answered. Disposition: Discharge home Impression: 1. Bilateral ear pain 2. Chest pain This note was generated with [employer] dictation software. It may contain incorrect words, spelling, and punctuation that were not noted in review of the chart prior to signing ED Disposition - Plan for ED Patient: Disposition: Home or Assisted Living Diagnosis: Chest pain, Left ear pain Instructions: CHEST PAIN, Uncertain Cause, EARACHE w/o Infection (Adult) Referrals: Em Santos MD [Primary Care Provider] - 3-5 Days
[2019-04-17 22:50] VITALS: BP 115/59; PULSE 61; RESP 16; O2SAT 100
== END 2019-04-17 22:52 | disposition home or self-care (01) ==
PROVIDERS: Emergency Provider Emergency Medicine; Family Provider Internal Medicine; PCP Internal Medicine
DX: H92.03 Otalgia, bilateral (principal); R07.9 Chest pain, unspecified; R11.0 Nausea; R53.1 Weakness; M54.2 Cervicalgia; M54.9 Dorsalgia, unspecified; E66.9 Obesity, unspecified
CPT/HCPCS: 71046; 93005; 99283

== ENCOUNTER 2019-07-02 09:30 | Emergency (ER) | payer MEDICAID, SELFPAY ==
[2019-07-02 09:32] VITALS: BP 140/76; PULSE 72; RESP 17; TEMP 36.9; O2SAT 100; BMI 38.5
--- NOTE | 2019-07-02 09:46 | ED.DCSUM_ITS ---
History of Present Illness Chief Complaint: Back Informant: Patient Onset: Yesterday Current Severity: Moderate Maximum Severity: Moderate Narrative: Patient present secondary to thoracic back pain. She states yesterday she was seen in the ER in [place] secondary to chest pain and back pain. She had extensive work-up there including labs, chest x-ray, negative d-dimer, negative troponin x2. Patient was advised that her back pain was musculoskeletal in nature. She states she had no pain when she went home last night or this morning upon waking. After getting to work and having increased activity she noted worsened back pain with spasm. She points to the area just below the scapula bilaterally. She states her chest feels tight when the back catches. She denies any anterior chest pain today. Patient states she has not taken anything for pain. - Past Medical History (1) Chronic acquired lymphedema Status: Chronic (2) HTN (hypertension) Status: Chronic (3) Obstructive sleep apnea Status: Chronic Past Medical History - Allergies and Home Meds Allergies/Adverse Reactions: Allergies No Known Allergies Allergy (Verified 07/02/19 09:31) Primary Care Physician: Em Santos MD [Primary Care Provider] - Prior records reviewed: Yes Surgical History: - - Bilateral sinus surgery, eye surgery. Smoking Status: Never smoker - Family History Maternal Family History: Reports: - - Mother with a history of breast cancer and stroke in addition to heart disease. Paternal Family History: Reports: - - Paternal family history of diabetes, heart disease, hypertension and leukemia. Review of Systems General: Denies: Chills, Fever Eyes: Denies: Visual changes - bilaterally ENT: Denies: Bilateral ear pain Cardiovascular: Denies: Chest pain, Palpitations Respiratory: Denies: Dyspnea, Cough Gastrointestinal: Denies: Abdominal pain, Nausea, Vomiting, Diarrhea Musculoskeletal: Reports: Back pain. Denies: Extremity Pain Neurological: Denies: Headache, Weakness, Parasthesia Allergy: Denies: Uticaria Physical Exam Vital Signs/Narrative: Vital Signs Temp Pulse Resp BP Pulse Ox 07/02/19 09:32 98.4 F 72 17 140/76 H 100 Inital Vital Signs reviewed: Yes General: Well nourished, Well developed Head: Normocephalic ENT: Moist mucous membranes Neck: Supple Cardiovascular: Regular rate, Regular rhythm Respiratory: No distress, CTA bilaterally Abdomen: Soft, Nontender Back: - - Patient has reproducible tenderness in the bilateral lower thoracic paraspinal muscles. No overlying skin change. No midline tenderness. Skin: Normal color Neurological: Alert, Oriented x3, Normal Strength, Normal Sensation Psychological: Normal affect Diagnostic/Tx/Re-eval Impressions Chest X-Ray 07/02/19 09:50 IMPRESSION: Normal x-ray examination of the chest. Electronically Signed: Dawood Strong, at 10:11 EDT , Service support , 07/02/19 09:50 Chest 1 View (Portable) [RAD] Stat - Medical Decision Making I was able to review the patient's work-up that was completed last evening. She had negative laboratory evaluation including d-dimer and troponin x2. Patient will be treated with [place] and Flexeril here along with some Zofran for nausea. On repeat evaluation she reports minimal improvement in her symptoms. She be given an IM injection. Pain remains reproducible. Chest x-ray is unremarkable with normal aorta size. Should be given prescriptions for [place] and Flexeril at home. She is already on naproxen twice daily. ED Disposition - Plan for ED Patient: Disposition: Home or Assisted Living Diagnosis: Musculoskeletal back pain Instructions: ED Spasm Back No Trauma Prescriptions: cycloBENZAPRine HCl [Flexeril] 10 mg PO TID PRN #20 tab PRN Reason: Muscle Spasm Transmission Status: Pending to [facility] Hydrocodone Bitart/Apap 5-325 [[place] 5MG-325MG] 1 tablet PO Q4H PRN PRN 2 Days #10 tablet PRN Reason: Pain Transmission Status: Sent to [facility] Referrals: Em Santos MD [Primary Care Provider] - 1 Week
--- NOTE | 2019-07-02 09:50 | RAD_ITS ---
STUDY: X-RAY CHEST REASON FOR EXAM: Female, 43 years old. Increased mid/lower back pain TECHNIQUE: Single AP portable view of the chest. COMPARISON: Comparison is made with prior study dated April 17, 2019. FINDINGS: The lungs are clear and expanded. There is no demonstrated pleural abnormality. Normal size heart. Normal mediastinum and allison. Normal visualized pulmonary arteries. Normal visualized aortic arch and descending thoracic aorta. Normal visualized thoracic spine. Normal visualized ribs, clavicles, and shoulders. There is no demonstrated abnormality of the visualized soft tissue structures of the upper abdomen. RAD/Chest 1 View (Portable) IMPRESSION: Normal x-ray examination of the chest. Electronically Signed: Dawood Strong, at 10:11 EDT , Service support ,
[2019-07-02] MEDS: cycloBENZAPRine HCl 10 MG Tablet PO (09:56)
[2019-07-02] MEDS: Ondansetron ODT 4 MG Tablet PO (09:56)
[2019-07-02] MEDS: HYDROcodone Bitartrate/Apap 5/325 Tablet PO (09:56)
[2019-07-02] MEDS: HYDROmorphone 1 MG/ML Syringe IM (11:49)
[2019-07-02 12:30] VITALS: RESP 18
== END 2019-07-02 12:58 | disposition home or self-care (01) ==
PROVIDERS: Emergency Provider Emergency Medicine; PCP Internal Medicine
DX: M54.6 Pain in thoracic spine (principal); R11.0 Nausea; I89.0 Lymphedema, not elsewhere classified; I10 Essential (primary) hypertension; G47.33 Obstructive sleep apnea (adult) (pediatric); Z79.82 Long term (current) use of aspirin; Z79.899 Other long term (current) drug therapy
CPT/HCPCS: 71045; 96372; 99283

== ENCOUNTER 2020-01-28 12:20 | Observation (INO) | payer MEDICAID, SELFPAY ==
[2020-01-28] VITALS (9 sets, daily range): BP systolic 95–150; BP diastolic 56–70; PULSE 63–77; RESP 12–20; TEMP 35.8–36.7; O2SAT 98–100; BMI 39.9; BMI 39.2
--- NOTE | 2020-01-28 13:22 | ED.RN ---
discussed case with Dr. Ashraf. d/t symptoms starting yesterday no stroke alert needed to call.
--- NOTE | 2020-01-28 13:50 | RAD_ITS ---
STUDY: X-RAY CHEST REASON FOR EXAM: Female, 44 years old. DIZZINESS STARTED YESTERDAY TECHNIQUE: Single AP portable view of the chest. COMPARISON: Comparison is made with prior examination dated 07/02/2019. FINDINGS: EKG electrodes are seen. The lungs are clear and expanded. There is no demonstrated pleural abnormality. Normal size heart. Normal mediastinum and allison. Normal visualized pulmonary arteries. Normal visualized aortic arch and descending thoracic aorta. Normal visualized thoracic spine. Normal visualized ribs, clavicles, and shoulders. There is no demonstrated abnormality of the visualized soft tissue structures of the upper abdomen. RAD/Chest 1 View IMPRESSION: Normal x-ray examination of the chest. Electronically Signed: Dawood Strong, at 14:40 EDT , Service support ,
--- NOTE | 2020-01-28 13:50 | EKG12_ITS ---
Test Reason : CP Blood Pressure : / mmHG Vent. Rate : 055 BPM Atrial Rate : 055 BPM P-R Int : 150 ms QRS Dur : 096 ms QT Int : 430 ms P-R-T Axes : 029 007 011 degrees QTc Int : 411 ms Sinus bradycardia Nonspecific T wave abnormality Abnormal ECG Confirmed by GERONIMO HARRIS, LISA ([id number]), non linear editor TEA ALONSO ([id number]) on 01/30/2020 1:44:47 PM Referred By: MAGAN Confirmed By:LISA MELTON MD
--- NOTE | 2020-01-28 13:51 | CT_ITS ---
STUDY: CTA HEAD AND NECK WITH CONTRAST REASON FOR EXAM: Female, 44 years old. DIZZINESS YESTERDAY. TODAY LT EYE TWITCHING, L CHEEK NUMBNESS RADIATION DOSAGE (If Supplied By Facility): CTDIvol = ( 29.70 ) mGy, DLP = ( 1516.51 ) mGycm TECHNIQUE: CT angiography was performed with a multi-detector CT scanner. Data acquisition was obtained from the skull base through the vertex following intravenous administration of IV 100mL Isovue-370. MIP images were reconstructed from the axial data set. Post-processing of the angiographic images was performed, with multiplanar reformation and 3D reconstruction. Individualized dose optimization techniques were used for this CT. COMPARISON: Comparison is made with prior study dated 12/29/2017. FINDINGS: Normal bilateral petrous carotid arteries. Normal right cavernous carotid artery with a normal supraclinoid bifurcation. Normal left cavernous carotid artery with a normal supraclinoid bifurcation. Normal right A1 segments of the anterior cerebral artery. Normal left A1 segments of the anterior cerebral artery. Normal intact anterior communicating artery (ACOM). Normal bilateral A2 segments of the anterior cerebral arteries. Normal right M1 and M2 segments of the middle cerebral arteries, with a normal M1 bifurcation. Normal left M1 and M2 segments of the middle cerebral arteries, with a normal M1 bifurcation. Normal right posterior communicating artery (PCOM). There is non-visualization of the left posterior communicating artery (PCOM). Normal bilateral vertebral arteries. Normal basilar artery with a normal basilar bifurcation. The visualized bilateral superior cerebellar (SCA) arteries are normal. Normal bilateral P1, P2 and visualized P3 segments of the posterior cerebral arteries. There is no demonstrated aneurysm of the [place]. There is no demonstrated abnormality of the visualized brain. AORTIC ARCH: Normal visualized aortic arch. Normal origins of the brachiocephalic, left common carotid, and left subclavian arteries. RIGHT CAROTID ARTERIES: Normal right common carotid artery (CCA). Normal right common carotid bulb. Normal origin of the right internal carotid (ICA) artery without a hemodynamically significant stenosis. Normal visualized cervical portion of the right internal carotid artery. Normal origin of the right external carotid artery (ECA). LEFT CAROTID ARTERIES: Normal left common carotid artery (CCA). Normal left common carotid bulb. Normal origin of the left internal carotid (ICA) artery without a hemodynamically significant stenosis. Normal visualized cervical portion of the left internal carotid artery. Normal origin of the left external carotid artery (ECA). VERTEBRAL ARTERIES: Normal bilateral vertebral arteries. CT/CTA Head AND Neck W/ Contrast IMPRESSION: Normal CTA Head and neck with contrast. Electronically Signed: Dawood Strong, at 14:45 EDT , Service support ,
[2020-01-28 13:57] LABS: Absolute Lymphocyte Count 1.96 X10^3/uL (0.83-4.51); Absolute Neutrophil Count 5.2 X10^3/uL (2.0-7.7); Basophil# 0.04 X10^3/uL; Basophil% 0.5 % (0-1); Eosinophil# 0.08 X10^3/uL; Hemoglobin 12.2 g/dL (12.0-15.0); Lymphocyte # 1.96 X10^3/ul (4.0); Lymphocyte % 25.7 % (19-41); Mean Corp Hgb Conc 30.5 g/dL (32-36); Mean Corpuscular Hgb 27.6 pg (27.0-32.0); Mean Corpuscular Volume 90.5 fL (81-99); Mean Platelet Vol. 9.7 fl (6.2-12.0); Monocyte# 0.36 X10^3/uL; Monocyte% 4.7 % (0-10); NRBC Flagged by Analyzer 0 % (0-5); Neutrophil # 5.15 X10^3/uL (2.7-7.7); Neutrophil % 67.6 % (47-70); Platelet Count 281 K/mm3 (150-450); RBC Distribution Width CV 13.6 % (11.6-14.6); RBC Distribution Width SD 45.5 fl (35.1-43.9); Red Blood Count 4.42 M/mm3 (4.2-5.4); White Blood Count 7.6 K/mm3 (4.4-11.0)
[2020-01-28] MEDS: Meclizine HCl 25 MG Tablet PO ×2 (13:59→20:14)
[2020-01-28 14:12] LABS: Prothrombin Time (Protime)PT. 12.3 SECONDS (11.7-14.9)
[2020-01-28 14:13] LABS: Partial Thromboplast Time 26.3 Seconds (24.1-36.2)
[2020-01-28 14:15] LABS: Anion Gap 7 (5-15); BUN 16 mg/dL (7-18); BUN/Creat Ratio 19.3 RATIO (10-20); Calcium,Total 8.8 mg/dL (8.5-10.1); Chloride 106 mmol/L (98-107); Creatinine, Serum 0.83 mg/dL (0.55-1.02); EST Glomerular Filtration Rate 79 mL/min (>60); Est Glom Filt Rate - Afr Amer 95 mL/min (>60); Estimated Creatinine Clearance 82.36 ml/min; Glucose 102 mg/dL (74-106); Potassium 3.5 mmol/L (3.5-5.1); Sodium Level 142 mmol/L (136-145)
--- NOTE | 2020-01-28 14:53 | ED.DCSUM_ITS ---
History of Present Illness Chief Complaint: Dizziness Informant: Patient Onset: Yesterday Context: Gradual Onset Timing: Intermittent Quality and Location: Left Face Parasthesia, - - vertigo Narrative: Patient is a 44-year-old female with history of GERD and family history of M?ni?re's disease presenting with vertigo, dizziness and facial numbness. Patient states her symptoms started yesterday with a room spinning sensation dizziness. She states that still present. It is worse and her eyes are open or she looks around. She denies associated nausea or vomiting. This morning around 10:30 AM felt numbness over the left side of her face. She states it goes from her adventist to her cheek. She also started having spasms of her left eyelid. Patient also notes of the past few months she been having intermittent numbness of her right arm. She is never had this evaluated. She denies any associated chest pain, shortness of breath or difficulty breathing. She denies any new weakness or other neurologic symptoms at this time. She does have some associated tinnitus. She does not take any aspirin. She not take anything for symptoms today. No sick contacts. Past Medical History - Allergies and Home Meds Allergies/Adverse Reactions: Allergies No Known Allergies Allergy (Verified 01/28/20 12:24) Primary Care Physician: Em Santos MD [Primary Care Provider] - Past Medical History: - - GERD, left leg swelling Surgical History: - - Bilateral sinus surgery, eye surgery. Smoking Status: Never smoker - Family History Maternal Family History: Reports: - - Mother with a history of breast cancer and stroke in addition to heart disease. Paternal Family History: Reports: - - Paternal family history of diabetes, heart disease, hypertension and leukemia. Review of Systems General: Denies: Chills, Fever, Sweats Eyes: Denies: Visual changes - bilaterally, Diplopia ENT: Reports: - - Tinnitus. Denies: Rhinorrhea, Sore throat Cardiovascular: Denies: Chest pain, Palpitations Respiratory: Denies: Dyspnea, Cough, Dyspnea on exertion Gastrointestinal: Denies: Abdominal pain, Nausea, Vomiting, Diarrhea, Melena, Hematochezia Genitourinary: Denies: Dysuria, Hematuria, Frequency Musculoskeletal: Denies: Back pain, Extremity Pain Skin: Denies: Rash, Wounds Neurological: Reports: Parasthesia - Left face, - - Vertigo, right arm paresthesias. Denies: Headache, Weakness, Numbness STROKE Vital Signs/Narrative: Vital Signs Temp Pulse Resp BP Pulse Ox 01/28/20 14:02 69 14 95/56 L 100 01/28/20 12:21 96.5 F L 77 19 H 150/70 H 100 Inital Vital Signs reviewed: Yes - NIHSS Initial 1a Level of Consciousness: 0 1b LOC Questions (Score 2 if aphasic/stupor): 0 1c LOC Commands (Only score 1st attempt): 0 2 Best Gaze (If aphasic, use reflexive mvmts.): 0 3 Visual: 0 4 Facial Palsy: 0 5 Motor Arm Right (UN = amputation/fusion): 0 5 Motor Arm Left: 0 6 Motor Leg Right: 0 7 Limb ataxia (Only + if out of proportion): 0 8 Sensory (Aphasia/stupor=0 or 1, coma=2): 1 9 Best Language: 0 10 Dysarthria (mute, coma=2, intubated=UN): 0 11 Extinction and Inattention (only scored if +): 0 Total Score: 1 General: Well nourished, Well developed, Obese Head: Normocephalic, Atraumatic Eyes: Perrl, EOMI, - - Bilateral fatiguing horizontal nystagmus with leftward gaze ENT: Moist mucous membranes, No rhinorrhea, TM's clear Neck: Supple, Nontender Cardiovascular: Regular rate, Regular rhythm, No murmurs Respiratory: No distress, CTA bilaterally, Chest nontender Abdomen: Soft, Nontender, Nondistended, Normal bowel sounds Back: Nontender, Normal Inspection Extremities: Nontender, No edema Skin: Normal color, No rash Neurological: Alert, Oriented x3, Cranial nerves II-XII grossly intact, Normal Strength, Parasthesia - Paresthesia of the left cheek, -. Negative for: Weakness, Left side facial droop, Right side facial droop Psychological: Normal affect Diagnostic/Tx/Re-eval Clinical Impression(s) from Imaging Studies Chest X-Ray 01/28/20 13:50 IMPRESSION: Normal x-ray examination of the chest. Electronically Signed: Dawood Strong, at 14:40 EDT , Service support , Head/Neck CTA 01/28/20 13:51 IMPRESSION: Normal CTA Head and neck with contrast. Electronically Signed: Dawood Strong, at 14:45 EDT , Service support , Laboratory Data 01/28/20 01/28/20 01/28/20 13:50 13:50 13:50 WBC 7.6 RBC 4.42 Hgb 12.2 Hct 40.0 MCV 90.5 MCH 27.6 MCHC 30.5 L RDW Std Deviation 45.5 H RDW Coeff of Rai 13.6 Plt Count 281 MPV 9.7 Immature Gran % (Auto) 0.500 Neut % (Auto) 67.6 Lymph % (Auto) 25.7 [place] % (Auto) 4.7 Eos % (Auto) 1.0 Baso % (Auto) 0.5 Absolute Neuts (auto) 5.2 Absolute Lymphs (auto) 1.96 Nucleated RBC % 0 PT 12.3 INR 1.0 APTT 26.3 Sodium 142 Potassium 3.5 Chloride 106 Carbon Dioxide 29.0 Anion Gap 7 BUN 16 Creatinine 0.83 Estim Creat Clear Calc 82.36 Est GFR (MDRD) Af Amer 95 Est GFR (MDRD) Non-Af 79 BUN/Creatinine Ratio 19.3 Glucose 102 Calcium 8.8 Troponin I < 0.015 Chest X-Ray - ED: 1 View, Read by ED Physician, Read by Radiologist, No Acute Disease - Rhythm Strip Rhythm Strip: Sinus Rhythm Rate: 55 - Medical Decision Making Evaluated for vertigo and facial paresthesias. Her vertigo started yesterday and her facial paresthesia started today. Her NIH is 1. Clinically her vertigo appears to be peripheral however the fact that she has other neurologic symptoms I cannot rule out a central process. The been going on for approximally [address] is not sensitive enough to rule out acute cerebellar stroke. Differential also includes MS and her odd neurologic symptoms. Neurologic work- up in the ER is largely negative. Patient is given aspirin in the ER. Stroke alert is not called given her symptoms going on for more than 24 hours. No s igns of an LVO. Patient to be admitted for further evaluation of her neurologic symptoms. She is agreeable with this. She initially given meclizine which does not help her vertigo and then given oral Valium. ED Disposition - Plan for ED Patient: Disposition: Acute Care Hospital [facility] Diagnosis: Vertigo, Facial paresthesia Referrals: Em Santos MD [Primary Care Provider] -
--- NOTE | 2020-01-28 16:02 | NURSING ---
PCU ASHELFAH VERITGO, FACIAL NUMBNESS OBS
--- NOTE | 2020-01-28 16:08 | HP.PCM_ITS ---
<Kiera Wang MEDICAL DELIVERY DRIVER - Last Filed: 01/28/20 16:29> Problem List (1) Chronic acquired lymphedema Status: Chronic (2) Constipation Status: Chronic Qualifiers: Constipation type: unspecified constipation type Qualified Code(s): K59.00 - Constipation, unspecified (3) Depression Status: Chronic Qualifiers: Depression Type: unspecified Qualified Code(s): F32.9 - Major depressive disorder, single episode, unspecified (4) Epistaxis, recurrent Status: Chronic (5) HTN (hypertension) Status: Chronic Qualifiers: Hypertension type: essential hypertension Qualified Code(s): I10 - Essential (primary) hypertension (6) Morbid obesity Status: Chronic (7) Obesity (BMI 30-39.9) Status: Chronic (8) Obstructive sleep apnea Status: Chronic History of Present Illness Date of Admission: 01/28/20 Chief Complaint: Vertigo, left facial numbness. The patient is a 44 year old F who presents to the emergency room due to vertigo and left facial numbness. Patient states vertigo began 2 days ago and is worse with standing up and head movement. She states it feels like the room is spinning. Denies nausea, vomiting. She reports this morning around 10 AM she noticed left facial numbness. She states she has had vertigo in the past however has not previously had paresthesias. She denies speech changes, vision changes, focal deficits. Denies upper or lower extremity numbness. She denies headaches. She has a history of migraines. She has a past medical history of RAFAEL, obesity, GERD, chronic left lower extremity lymphedema, history of migraines. Past Medical History Past Medical History (Chronic Problems): Chronic Problems Obesity (BMI 30-39.9) (Chronic) HTN (hypertension) (Chronic) Chronic acquired lymphedema (Chronic) Epistaxis, recurrent (Chronic) Obstructive sleep apnea (Chronic) Constipation (Chronic) Morbid obesity (Chronic) Depression (Chronic) Allergies No Known Allergies Allergy (Verified 01/28/20 12:24) Home Medications: Ambulatory Orders Medication Instructions Recorded Sucralfate 1 gm PO 4X/DAY 08/13/16 Fluticasone Propionate [Flonase 1 spray NASAL DAILY 04/17/19 Allergy Relief] Naproxen 500 mg PO BID 04/17/19 Omeprazole 40 mg PO BID 01/28/20 Triamterene/Hctz 37.5/25Mg 1 tab PO DAILY 01/28/20 [Triamterene-Hctz 37.5-25 mg Tb] Surgical History: - - Bilateral sinus surgery, eye surgery. 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 Paternal History Items: - - Paternal family history of diabetes, heart disease, hypertension and leukemia. Review of Systems Constitutional: Denies: Chills, Fever, Weight Change Eyes: Denies: Vision Change HEENT: Denies: Head Aches, Sinus Congestion, Sinus Drainage Cardiovascular: Denies: Chest Pain, Palpitations Respiratory: Denies: Cough, Shortness of breath at rest, Sputum production Gastrointestinal: Denies: Abdominal Pain, Nausea, Vomiting Genitourinary: Denies: Dysuria Musculoskeletal: Denies: Joint Pain, Joint Tenderness Skin: Denies: Rash, Wounds Neurological: Reports: Numbness - left face, - - vertigo. Denies: Blurred vision, Double vision, Slurred speech, Difficulty swallowing, Focal weakness Psychiatric: Denies: Anxiety, Depression, Homicidal Ideations, Suicidal Ideations Hematologic/ Lymphatic: Denies: Easy Bruising, Easy Bleeding VTE Information - Inpt Only VTE Present on Admission: No VTE Mechan Device Prophylaxis: None VTE Pharm Prophylaxis ordered?: No Reason prophylaxis not ordered:: Treatment Not Indicated - Physical Exam Vitals/I&O's: Vital Signs Temp Pulse Resp BP Pulse Ox 96.5 F L 69 14 95/56 L 100 01/28/20 12:21 01/28/20 14:02 01/28/20 14:02 01/28/20 14:02 01/28/20 14:02 Oxygen Delivery Method Room Air Weight: 255 lb Body Mass Index (BMI) 39.9 General: Alert, Oriented x3, Cooperative HEENT: Atraumatic, PERRLA, EOMI, Normocephalic Neck: Supple, No JVD, Negative Carotid Bruits Lungs: Clear to auscultation, Normal air movement Cardiovascular: Regular rate, No murmurs Abdomen: Bowel Sounds Present, Soft, Non Tender, Non-Distended, Obese Extremities: No clubbing, No cyanosis, Edema - Chronic left lower extremity lymphedema Skin: No rashes, No breakdown Musculoskeletal: No Tenderness to Palpation of Joints or Extremities Neurological: Cranial nerves II-XII grossly intact, - - Mild left facial paresthesias Psych/Mental Status: Normal Affect, Appropriate Laboratory Results 01/28/20 13:50: WBC 7.6, RBC 4.42, Hgb 12.2, Hct 40.0, MCV 90.5, MCH 27.6, MCHC 30.5 L, RDW Std Deviation 45.5 H, RDW Coeff of Rai 13.6, Plt Count 281, MPV 9.7, Immature Gran % (Auto) 0.500, Neut % (Auto) 67.6, Lymph % (Auto) 25.7, [place] % (Auto) 4.7, Eos % (Auto) 1.0, Baso % (Auto) 0.5, Absolute Neuts (auto) 5.2, Absolute Lymphs (auto) 1.96, Nucleated RBC % 0 01/28/20 13:50: PT 12.3, INR 1.0, APTT 26.3 01/28/20 13:50: Sodium 142, Potassium 3.5, Chloride 106, Carbon Dioxide 29.0, Anion Gap 7, BUN 16, Creatinine 0.83, Estim Creat Clear Calc 82.36, Est GFR (MDRD) Af Amer 95, Est GFR (MDRD) Non-Af 79, BUN/Creatinine Ratio 19.3, Glucose 102, Calcium 8.8, Troponin I < 0.015 Assessment/Plan 1. Vertigo, left facial paresthesia-low suspicion for CVA/TIA. Scheduled meclizine. Obtain MRI of brain. Check TSH, mag, vitamin B12. Aspirin, statin pending MRI results. PT/OT/ST. 2. RAFAEL-continue home CPAP regimen. 3. Obesity-encouraged diet lifestyle modification. 4. GERD--continue PPI. 5. Chronic left lower extremity lymphedema-patient reports she has had extensive work-up in the past and no etiology has been found. Continue home triamterene/HCTZ regimen. 6. History of migraines-denies recent migraine. Not on prophylactic regimen. DVT prophylaxis-not indicated, low risk This patient was seen by CHARLENE Mg under the supervision of Dr. Arambula. <Supriya Arambula E - Last Filed: 01/28/20 17:03> History of Present Illness The patient is a 44 year old F [] Past Medical History Allergies No Known Allergies Allergy (Verified 01/28/20 12:24) - Physical Exam Vitals/I&O's: Vital Signs Temp Pulse Resp BP Pulse Ox 98.1 F 73 20 H 118/68 100 01/28/20 16:37 01/28/20 16:37 01/28/20 16:37 01/28/20 16:37 01/28/20 16:37 Oxygen Delivery Method Room Air Weight: 255 lb Body Mass Index (BMI) 39.9 Laboratory Results 01/28/20 13:50: WBC 7.6, RBC 4.42, Hgb 12.2, Hct 40.0, MCV 90.5, MCH 27.6, MCHC 30.5 L, RDW Std Deviation 45.5 H, RDW Coeff of Rai 13.6, Plt Count 281, MPV 9.7, Immature Gran % (Auto) 0.500, Neut % (Auto) 67.6, Lymph % (Auto) 25.7, [place] % (Auto) 4.7, Eos % (Auto) 1.0, Baso % (Auto) 0.5, Absolute Neuts (auto) 5.2, Absolute Lymphs (auto) 1.96, Nucleated RBC % 0 01/28/20 13:50: PT 12.3, INR 1.0, APTT 26.3 01/28/20 13:50: Sodium 142, Potassium 3.5, Chloride 106, Carbon Dioxide 29.0, Anion Gap 7, BUN 16, Creatinine 0.83, Estim Creat Clear Calc 82.36, Est GFR (MDRD) Af Amer 95, Est GFR (MDRD) Non-Af 79, BUN/Creatinine Ratio 19.3, Glucose 102, Calcium 8.8, Troponin I < 0.015 01/28/20 13:50: TSH 1.10 01/28/20 13:50: Magnesium 2.4 01/28/20 13:50: Vitamin B12 Pending 01/28/20 16:10: Urine Color Yellow, Urine Clarity Clear, Urine pH 6.5, Ur Specific [place] 1.005, Urine Protein Negative, Urine Glucose (UA) Normal, Urine Ketones Negative, Urine Occult Blood 10 H, Urine Nitrite Negative, Urine Bilirubin Negative, Urine Urobilinogen Normal, Ur Leukocyte Esterase Negative, Urine RBC 0-5 SEEN, Urine WBC 0 SEEN, Ur Squamous Epith Cells 0-5 SEEN, Urine Bacteria 0 SEEN, Urine Mucus 0 SEEN, Urine Test Negative Current Medications Acetaminophen (Acetaminophen 325 Mg Tablet) 650 mg PO Q6H PRN PRN PRN Reason: Pain Score 1-10/Temp > 100.7 F Aspirin (Aspirin 81 Mg Tab.Chew) 81 mg PO DAILY@0800 BRIAN Atorvastatin Calcium (Atorvastatin Calcium 80 Mg Tablet) 80 mg PO QHS BRAIN Ibuprofen (Ibuprofen 400 Mg Tablet) 400 mg PO Q4H PRN PRN PRN Reason: Pain Score 1-10/Temp > 100.7 F Meclizine HCl (Meclizine Hcl 25 Mg Tablet) 25 mg PO TID BRIAN Ondansetron HCl (Ondansetron 4 Mg/2 Ml Vial) 4 mg IV Q8H PRN PRN PRN Reason: NAUSEA/VOMITING Pantoprazole Sodium (Pantoprazole Sodium 40 Mg Tablet) 40 mg PO BID BRIAN Sodium Chloride (0.9% Saline Lock 10 Ml Syringe) 10 - 40 ml IV UD PRN PRN Reason: SALINE FLUSH Sucralfate (Sucralfate 1 Gm Tablet) 1 gm PO 1HR_ACHS BRIAN Triamterene/HCTZ (Triamterene 37.5mg/Hctz 25mg Capsule) 1 cap PO DAILY [facility] Assessment/Plan Hospitalist note: I am seeing this patient in conjunction with Kiera Wang. I independently seen and examined the patient. History and physical, laboratory data and imaging studies reviewed and I concur with the above admission and treatment plan. Patient presented to the emergency room because of dizziness that was started yesterday, described as spinning, has been persistent, aggravated by standing up and today, she started having tingling on the lower half of the left face. She denied associated nausea or vomiting. She denied focal arm or leg weakness. She mentioned that she had a history of vertigo in the past but never had this numbness or tingling of the face. She denied blurred vision or slurred speech. In the emergency department, her vital signs were stable. Her routine blood work was unremarkable. EKG revealed sinus bradycardia, heart rate is 55, no acute changes. Troponin is negative. CTA of the the neck was unremarkable. She is being admitted for vertigo for treatment and evaluation. - Physical Exam General: Alert, Oriented x3, Cooperative, No apparent distress. HEENT: Atraumatic, PERRLA, EOMI. Neck: Supple, No JVD, Negative Carotid Bruits, Trachea Midline, Thyroid Normal. Lungs: Clear to auscultation, Normal air movement, No rhonchi, No wheeze, No rales. Cardiovascular: Regular rate, Regular Rhythm, Normal S1, Normal S2, PMI Normal. Abdomen: Bowel Sounds Present, Soft, Non Tender, Non-Distended, No Hepato- splenomegaly. Extremities: No clubbing, No cyanosis, No edema Skin: No rashes, No breakdown Neurological: Cranial nerves are intact, normal power and tone of all limbs. Vital Signs are stable. Assessment and plan: #1 vertigo/left facial paresthesia: Without other multifocal deficit. CTA of the neck reviewed, was unremarkable. EKG was remarkable for bradycardia, heart rate has been in the 55, otherwise unremarkable. Plan: Admit to PCU for observation, cardiac monitoring, MRI brain, meclizine as needed. #2 other chronic medical problems: Stable, continue current medications as above. This note was generated with [employer] dictation software. It may contain incorrect words, spelling, and punctuation that were not noted in checking the note before signing. OBSV E&M: 27409 Initial observation care L2
--- NOTE | 2020-01-28 16:17 | MRI_ITS ---
HISTORY: left facial numbness, htn, migraines X 2 DAYS TECHNIQUE: Multiplanar and multisequence MR images of the brain were obtained without contrast. IV Contrast dosage and agent: None. COMPARISON: 12/30/2017 FINDINGS: Number of images including paperwork: 280 PARANASAL SINUSES AND MASTOID AIR CELLS: Lobulated mucosal thickening in the right maxillary sinus again seen. CALVARIUM: Intact. INTRACRANIAL HEMORRHAGE: No evidence of acute intracranial hemorrhage. BRAIN PARENCHYMA: No acute infarct. Cerebrum, cerebellum and brainstem are unremarkable. Normal sella turcica, pituitary gland, infundibular stalk, and optic chiasm. The internal auditory canals are patent. No mass effect or midline shift. CSF SPACES: Appropriate for age. No hydrocephalus. Patent basal cisterns. VASCULAR SYSTEM: Normal flow voids in the major intracranial circulation. ORBITS: Both globes, extraocular muscles, optic nerves and retrobulbar fat appear unremarkable. SOFT TISSUES: Unremarkable. MRI/Brain without Contrast IMPRESSION: No acute intracranial abnormality. at 2220 Reported and signed by: Deonna Mclaughlin MD Electronically Signed: Deonna cMlaughlin MD at 22:20 EDT Tel , Service support ,
[2020-01-28 16:19] LABS: Bacteria 0 SEEN /hpf (None Seen); Mucous, Urine 0 SEEN /hpf (<or=2+); White Blood Cells 0 SEEN /hpf (0-5)
[2020-01-28 16:25] LABS: Color, Urine Yellow (Yellow); Glucose, Dipstick Normal (Normal); Ketone-Dipstick Negative (Negative); Leukocyte Esterase-Dipstick Negative /ul (Negative); Nitrite-Dipstick Negative (Negative); Occult Blood-Urine 10 /ul (Negative); Protein-Dipstick Negative (Negative); Specific Gravity, Urine 1.005 (1.002-1.030); Urine Bilirubin Dipstick Negative (Negative); Urine Clarity Clear (Clear); Urine Urobilinogen Normal (Normal); Urine pH 6.5 (5.0 - 8.0)
[2020-01-28 16:34] LABS: Internal QC Validated? YES +Cl - CLEAR BKGD; Red Blood Cells-Urine 0-5 SEEN /hpf (0-5); Squamous Epithelial Cells - UA 0-5 SEEN /hpf (5-10)
[2020-01-28 16:35] LABS: Pregnancy, Urine Negative Negative
[2020-01-28] MEDS: Aspirin 81 MG TAB.CHEW 324 MG PO (16:35)
[2020-01-28] MEDS: diazePAM 5 MG Tablet PO (16:35)
[2020-01-28 16:44] LABS: Magnesium 2.4 mg/dL (1.6-2.6)
[2020-01-28 17:46] LABS: Vitamin B12 463 pg/mL (211-911)
[2020-01-28] MEDS: Pantoprazole Sodium 40 MG Tablet PO (20:14)
[2020-01-28] MEDS: Sucralfate 1 GM Tablet PO (20:14)
[2020-01-28] MEDS: Atorvastatin Calcium 80 MG Tablet PO (20:15)
[2020-01-29] VITALS (7 sets, daily range): BP systolic 126–136; BP diastolic 62–88; PULSE 59–82; RESP 17–18; TEMP 36.8–37.1; O2SAT 95–98
[2020-01-29] MEDS: Meclizine HCl 25 MG Tablet PO ×2 (05:42→13:38)
[2020-01-29] MEDS: Sucralfate 1 GM Tablet PO ×2 (05:42→10:34)
[2020-01-29 07:06] LABS: Cholesterol 154 mg/dL (200); High Density Lipoprotein 38 mg/dL; Triglycerides 146 mg/dL; Very Low Density Lipoprotein 29 mg/dL (5-40)
[2020-01-29] MEDS: Aspirin 81 MG TAB.CHEW PO (08:09)
[2020-01-29] MEDS: Ibuprofen 400 MG Tablet PO (08:23)
[2020-01-29] MEDS: Pantoprazole Sodium 40 MG Tablet PO (10:33)
[2020-01-29] MEDS: Triamterene 37.5MG/Hctz 25MG Capsule 1 CAP PO (10:34)
--- NOTE | 2020-01-29 11:18 | DCINST_ITS ---
- Discharge Diagnoses Current Active Problems: Current Active and Chronic Problems Vertigo (Acute) Facial paresthesia (Acute) Obesity (BMI 30-39.9) (Chronic) HTN (hypertension) (Chronic) Chronic acquired lymphedema (Chronic) Epistaxis, recurrent (Chronic) Obstructive sleep apnea (Chronic) Constipation (Chronic) Morbid obesity (Chronic) Depression (Chronic) You will use the following diet at home:: Calorie/Carbohydrate Controlled (specify 1200, 1400, etc) Discharge Activity: Return to Normal Activity Call your doctor if you observe: Shortness of breath, Dizziness, Fainting spells, Chest pain Allergies/Adverse Reactions: Allergies No Known Allergies Allergy (Verified 01/28/20 12:24) Medications to take at Discharge Sucralfate 1 gm PO 4X/DAY 08/13/16 Fluticasone Propionate [Flonase Allergy Relief] 1 spray NASAL DAILY 04/17/19 Naproxen 500 mg PO BID 04/17/19 Omeprazole 40 mg PO BID 01/28/20 Triamterene/Hctz 37.5/25Mg [Triamterene-Hctz 37.5-25 mg Tb] 1 tab PO DAILY 01/28/20 Meclizine HCl [Antivert] 25 mg PO TID PRN #30 tab 01/29/20 The following prescriptions were given: Meclizine HCl [Antivert] 25 mg PO TID PRN #30 tab PRN Reason: Vertigo Transmission Status: Pending to [id number] Primary Care Physician: Em Santos MD [Primary Care Provider] - Please follow up with your Primary Care Physician in: 1 Week Test Results: Test results from this visit will be discussed in further detail at your follow- up appointment, if applicable. Please Follow Up With: Bentley Chow MD - ENT When: Call for appt if vertigo persistant Proposed Discharge Date: 01/29/20
--- NOTE | 2020-01-29 11:20 | PCM.DC.SUM ---
<Kiera Wang HAND II CUTTER - Last Filed: 01/29/20 12:53> Discharge Date and Diagnosis - Problem List Patient Problems: Active and Suspected Problems Vertigo (Acute) Facial paresthesia (Acute) Date of Admission: 01/28/20 Date of Discharge: 01/29/20 - Primary Discharge Diagnosis Acute Problems: Active Problems 1. Vertigo, left facial paresthesia-CVA ruled out 2. RAFAEL 3. Obesity 4. GERD 5. Chronic left lower extremity lymphedema 6. History of migraines - Secondary Discharge Diagnosis Chronic Problems: Chronic Problems Obesity (BMI 30-39.9) (Chronic) HTN (hypertension) (Chronic) Chronic acquired lymphedema (Chronic) Epistaxis, recurrent (Chronic) Obstructive sleep apnea (Chronic) Constipation (Chronic) Morbid obesity (Chronic) Depression (Chronic) Hospital Course and Treatment Imaging Results: Diagnostic Data Chest X-Ray 01/28/20 13:50 IMPRESSION: Normal x-ray examination of the chest. Electronically Signed: Dawood Strong, at 14:40 EDT , Service support , Head/Neck CTA 01/28/20 13:51 IMPRESSION: Normal CTA Head and neck with contrast. Electronically Signed: Dawood Strong, at 14:45 EDT , Service support , Brain MRI 01/28/20 16:17 IMPRESSION: No acute intracranial abnormality. at 2220 Reported and signed by: Deonna Mclaughlin MD Electronically Signed: Deonna Mclaughlin MD at 22:20 EDT Tel , Service support , Operations: None Procedures: None Summary of Care Provided: The patient is a 44 year old F admitted 01/28/2020 due to vertigo and left facial numbness. 1. Vertigo, left facial paresthesia-CVA ruled out. MRI of brain shows no acute abnormality. Lab work unremarkable. Continue as needed meclizine for vertigo. Left facial paresthesias may be secondary to atypical migraine as patient has history of migraines. Outpatient ENT follow-up if vertigo is persistent. Follow-up with PCP in 1 week. 2. RAFAEL-continue home CPAP regimen. 3. Obesity-encouraged diet lifestyle modification. 4. GERD--continue PPI. 5. Chronic left lower extremity lymphedema-patient reports she has had extensive work-up in the past and no etiology has been found. Continue home triamterene/HCTZ regimen. 6. History of migraines-denies recent migraine. Not on prophylactic regimen. General: Alert, Oriented x3, Cooperative HEENT: Atraumatic, PERRLA, EOMI, Normocephalic Neck: Supple, No JVD, Negative Carotid Bruits Lungs: Clear to auscultation, Normal air movement Cardiovascular: Regular rate, No murmurs Abdomen: Bowel Sounds Present, Soft, Non Tender, Non-Distended, Obese Extremities: No clubbing, No cyanosis, Edema - Chronic left lower extremity lymphedema Skin: No rashes, No breakdown Musculoskeletal: No Tenderness to Palpation of Joints or Extremities Neurological: Cranial nerves II-XII grossly intact, neuro grossly intact Psych/Mental Status: Normal Affect, Appropriate Patient seen and examined prior to discharge. Physical assessment as noted above. Patient is stable for discharge with follow up recommendations as noted above. This patient was seen by CHARLENE Mg under the supervision of Dr. Choi. Patient Problems: Active and Suspected Problems Vertigo (Acute) Facial paresthesia (Acute) - Physical Exam Vitals/I&O's: Vital Signs Temp Pulse Resp BP Pulse Ox 98.3 F 69 18 136/88 H 98 01/29/20 08:08 01/29/20 08:08 01/29/20 08:08 01/29/20 08:08 01/29/20 08:08 Oxygen Delivery Method Room Air Weight: 250 lb 7.122 oz Body Mass Index (BMI) 39.2 Intake and Output for Last 24 Hours 01/27/20 01/28/20 01/29/20 23:59 23:59 23:59 Intake Total 200 / 200 650 / 650 Balance 200 / 200 650 / 650 Laboratory Results 01/28/20 13:50: WBC 7.6, RBC 4.42, Hgb 12.2, Hct 40.0, MCV 90.5, MCH 27.6, MCHC 30.5 L, RDW Std Deviation 45.5 H, RDW Coeff of Rai 13.6, Plt Count 281, MPV 9.7, Immature Gran % (Auto) 0.500, Neut % (Auto) 67.6, Lymph % (Auto) 25.7, Sebastian % (Auto) 4.7, Eos % (Auto) 1.0, Baso % (Auto) 0.5, Absolute Neuts (auto) 5.2, Absolute Lymphs (auto) 1.96, Nucleated RBC % 0 01/28/20 13:50: PT 12.3, INR 1.0, APTT 26.3 01/28/20 13:50: Sodium 142, Potassium 3.5, Chloride 106, Carbon Dioxide 29.0, Anion Gap 7, BUN 16, Creatinine 0.83, Estim Creat Clear Calc 82.36, Est GFR (MDRD) Af Amer 95, Est GFR (MDRD) Non-Af 79, BUN/Creatinine Ratio 19.3, Glucose 102, Calcium 8.8, Troponin I < 0.015 01/28/20 13:50: TSH 1.10 01/28/20 13:50: Magnesium 2.4 01/28/20 13:50: Vitamin B12 463 01/28/20 16:10: Urine Color Yellow, Urine Clarity Clear, Urine pH 6.5, Ur Specific [place] 1.005, Urine Protein Negative, Urine Glucose (UA) Normal, Urine Ketones Negative, Urine Occult Blood 10 H, Urine Nitrite Negative, Urine Bilirubin Negative, Urine Urobilinogen Normal, Ur Leukocyte Esterase Negative, Urine RBC 0-5 SEEN, Urine WBC 0 SEEN, Ur Squamous Epith Cells 0-5 SEEN, Urine Bacteria 0 SEEN, Urine Mucus 0 SEEN, Urine Test Negative 01/29/20 06:15: Triglycerides 146, Cholesterol 154, LDL Cholesterol 87, VLDL Cholesterol 29, HDL Cholesterol 38 L Current Medications Acetaminophen (Acetaminophen 325 Mg Tablet) 650 mg PO Q6H PRN PRN PRN Reason: Pain Score 1-10/Temp > 100.7 F Aspirin (Aspirin 81 Mg Tab.Chew) 81 mg PO DAILY@0800 COUNT INCLUDES THE [facility] Last Admin: 01/29/20 08:09 Dose: 81 mg Documented by: Atorvastatin Calcium (Atorvastatin Calcium 80 Mg Tablet) 80 mg PO QHS COUNT INCLUDES THE [facility] Last Admin: 01/28/20 20:15 Dose: 80 mg Documented by: Ibuprofen (Ibuprofen 400 Mg Tablet) 400 mg PO Q4H PRN PRN PRN Reason: Pain Score 1-10/Temp > 100.7 F Last Admin: 01/29/20 08:23 Dose: 400 mg Documented by: Meclizine HCl (Meclizine Hcl 25 Mg Tablet) 25 mg PO TID COUNT INCLUDES THE [facility] Last Admin: 01/29/20 05:42 Dose: 25 mg Documented by: Ondansetron HCl (Ondansetron 4 Mg/2 Ml Vial) 4 mg IV Q8H PRN PRN PRN Reason: NAUSEA/VOMITING Pantoprazole Sodium (Pantoprazole Sodium 40 Mg Tablet) 40 mg PO BID COUNT INCLUDES THE [facility] Last Admin: 01/29/20 10:33 Dose: 40 mg Documented by: Sodium Chloride (0.9% Saline Lock 10 Ml Syringe) 10 - 40 ml IV UD PRN PRN Reason: SALINE FLUSH Sucralfate (Sucralfate 1 Gm Tablet) 1 gm PO 1HR_ACHS COUNT INCLUDES THE [facility] Last Admin: 01/29/20 10:34 Dose: 1 gm Documented by: Triamterene/HCTZ (Triamterene 37.5mg/Hctz 25mg Capsule) 1 cap PO DAILY COUNT INCLUDES THE [facility] Last Admin: 01/29/20 10:34 Dose: 1 cap Documented by: Discharge Diet: Low fat/ Low Cholesterol, 1800 Calorie Control Diet Discharge Activity: Return to Normal Activity Call your doctor if you observe: Shortness of breath, Dizziness, Fainting spells, Chest pain Home Medications: Medications to take at Discharge Sucralfate 1 gm PO 4X/DAY 08/13/16 Fluticasone Propionate [Flonase Allergy Relief] 1 spray NASAL DAILY 04/17/19 Naproxen 500 mg PO BID 04/17/19 Omeprazole 40 mg PO BID 01/28/20 Triamterene/Hctz 37.5/25Mg [Triamterene-Hctz 37.5-25 mg Tb] 1 tab PO DAILY 01/28/20 Meclizine HCl [Antivert] 25 mg PO TID PRN #30 tab 01/29/20 Following Prescriptions Were Given to Patient: Meclizine HCl [Antivert] 25 mg PO TID PRN #30 tab PRN Reason: Vertigo Transmission Status: Received by [id number] Primary Care Physician: Em Santos MD [Primary Care Provider] - Please follow up with your Primary Care Physician in: 1 Week Please Follow Up With: Bentley Chow MD - ENT When: Call for appt if vertigo persistant Disposition: Home Minutes spent on discharge:: 35 Patient Condition:: Stable Medical Necessity - Tobacco Use Smoking Status: Never smoker Tobacco Use: Non-smoker Meaningful Use Info Meaningful Use Diagnoses (Choose all that apply): None applicable <Bentley Choi - Last Filed: 01/29/20 15:49> Discharge Date and Diagnosis - Primary Discharge Diagnosis Acute Problems: Active Problems Vertigo (Acute) Facial paresthesia (Acute) - Secondary Discharge Diagnosis Chronic Problems: Chronic Problems Obesity (BMI 30-39.9) (Chronic) HTN (hypertension) (Chronic) Chronic acquired lymphedema (Chronic) Epistaxis, recurrent (Chronic) Obstructive sleep apnea (Chronic) Constipation (Chronic) Morbid obesity (Chronic) Depression (Chronic) Hospital Course and Treatment Operations: None Procedures: None Summary of Care Provided: Patient seen and examined independently. Data reviewed. I agree with the above note by the nurse practitioner. The patient is a 44 year old F presents with vertigo and facial paresthesias. Patient had MRI of her brain that was unremarkable. On exam, patient had some left lateral nystagmus that did reproduce some of the dizziness. Findings in the absence of any findings on MRI were more consistent with benign paroxysmal positional vertigo. Patient discharged home in stable condition. Of paresthesias in the back of her leg. Patient has known history of degenerative disc disease. Muscle strength and sensation were overall intact. Patient advised to follow-up with physical therapy and as outpatient. No red flags that would be concerning for warranting neurosurgery or spine surgery at this time. [] - Physical Exam Vitals/I&O's: Vital Signs Temp Pulse Resp BP Pulse Ox 37.1 C 82 18 130/66 H 98 01/29/20 13:35 01/29/20 13:35 01/29/20 13:35 01/29/20 13:35 01/29/20 13:35 Oxygen Delivery Method Room Air Weight: 113.6 kg Body Mass Index (BMI) 39.2 Intake and Output for Last 24 Hours 01/27/20 01/28/20 01/29/20 23:59 23:59 23:59 Intake Total 200 / 200 1450 / 1450 Balance 200 / 200 1450 / 1450 General: Alert, No apparent distress HEENT: Atraumatic, Normocephalic Oral: Moist Mucosa, No Gingival or Mucosal Lesions/ Ulcerations Neck: No Nodes, Thyroid Normal Size and Texture Lungs: Clear to auscultation, Normal air movement, No rhonchi, No wheeze Cardiovascular: Regular rate, Regular Rhythm, Normal S1, Normal S2 Neurological: Motor Exam 5/5 strength throughout, Sensory exam intact to light touch and pain Laboratory Results 01/28/20 13:50: TSH 1.10 01/28/20 13:50: Magnesium 2.4 01/28/20 13:50: Vitamin B12 463 01/28/20 16:10: Urine Color Yellow, Urine Clarity Clear, Urine pH 6.5, Ur Specific [place] 1.005, Urine Protein Negative, Urine Glucose (UA) Normal, Urine Ketones Negative, Urine Occult Blood 10 H, Urine Nitrite Negative, Urine Bilirubin Negative, Urine Urobilinogen Normal, Ur Leukocyte Esterase Negative, Urine RBC 0-5 SEEN, Urine WBC 0 SEEN, Ur Squamous Epith Cells 0-5 SEEN, Urine Bacteria 0 SEEN, Urine Mucus 0 SEEN, Urine Test Negative 01/29/20 06:15: Triglycerides 146, Cholesterol 154, LDL Cholesterol 87, VLDL Cholesterol 29, HDL Cholesterol 38 L Discharge Diet: Low fat/ Low Cholesterol, 1800 Calorie Control Diet Discharge Activity: Return to Normal Activity Call your doctor if you observe: Shortness of breath, Dizziness, Fainting spells, Chest pain Disposition: Home Minutes spent on discharge:: 35 Patient Condition:: Stable Medical Necessity - Tobacco Use Smoking Status: Never smoker Tobacco Use: Non-smoker Meaningful Use Info Meaningful Use Diagnoses (Choose all that apply): None applicable OBSV E&M: 32569 Observation care discharge
[2020-01-29] MEDS: diazePAM 5 MG Tablet PO (11:33)
--- NOTE | 2020-01-29 12:29 | PCM.WORK.EX ---
Work/School Excuse Work/School Excuse for:: Patient Please excuse this person from:: Work From: 01/28/20 through: 02/01/20
== END 2020-01-29 14:06 | disposition home or self-care (01) ==
LOC: ED 14:18 → PCU 16:58
PROVIDERS: Nurse Practitioner Family; Admitting Provider Hospitalist; Emergency Provider Emergency Medicine; PCP Internal Medicine
DX: R42 Dizziness and giddiness (principal); R20.2 Paresthesia of skin; G47.33 Obstructive sleep apnea (adult) (pediatric); K21.9 Gastro-esophageal reflux disease without esophagitis; I10 Essential (primary) hypertension; R00.1 Bradycardia, unspecified; I89.0 Lymphedema, not elsewhere classified; E66.01 Morbid (severe) obesity due to excess calories; Z68.39 Body mass index [BMI] 39.0-39.9, adult; Z79.899 Other long term (current) drug therapy; Z79.51 Long term (current) use of inhaled steroids
CPT/HCPCS: 70496; 70498; 70551; 71045; 80048; 80061; 81001; 81025; 82607; 83735; 84443; 84484; 85025; 85610; 85730; 92610; 93005; 97161; 99218; 99285; Q9967; A4216; G0378

== ENCOUNTER 2020-05-30 08:30 | Outpatient (RCR) | payer MEDICAID, SELFPAY ==
[2020-03-17 14:17] VITALS: BMI 38.5
--- NOTE | 2020-05-12 12:10 | HP.PTEVAL_ITS ---
Patient's Visit Information CHRISTOPHE PARRA is a 44 year old F referred to Physical Therapy by Dr. Julián Cantor DO with a diagnosis of Lumbar herniated disc, lumbar radiculopathy. Date of Evaluation: 05/12/20 Physical Therapist: Fred Santos DPT - Visit Plan Frequency: 2x /Week Duration: 4 Weeks Plan: Pt. has doine traditional PT without much success. Due to this and her limited tolerance I would like to start in aquatic setting work on BLE/core strength progressing lumbar mobility as tolerated. Deep hang fro light distraction also okay. - Subjective Pt. is here today for her initial evaluation with diagnosis of lumbar radic ulopthy, herniated lumbar disc. Pt. reports having increased pain for ~4 years now. She has had injections, PT, chiro care all with minimal success. She reports previous stint in PT she was doing press ups and using a TENS unit. Pt. describe pain at starts at the lower aspect of her lumbar region and at times does radiate down her leg mostly R, but sometimes her L leg as well. When she does have pain in her legs it radiates to her feet. Pt. reports no bladder dysfunction. She reports no N/T currently, but does have it often in BLEs. 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 Increases symptoms: sitting>standing, AMs, bending forward. Decrease symptoms: flexiril, nothing else. Sleeping postioning: bilateral sides. Xrays- degenerative changes at L/3/L4, L4/L5, and L5/S1. Pt. is hopeful to reduce symptoms in order to complete her job and recreational activities with increased tolerance. - Pain lumbar spine Pain Intensity (Out of 10): 8 Pain Intensity Range: 6, 10 - Objective POSTURE: Pt. has general flexed posture. Slight anterior pelvic tilt. Normal la teral wt. shifting, normal/symmetrical illiac crest height, no lateral shift noted. PALPATION: Pt. has tenderness at L3, L4, L5, S1 hypomobility noted with spring testing. NEURO: pt. has normal sensation and normal DTR of B patella, absent achilles bilaterally. Pt. is able to rise on heels and toes without issues. ROM: LUMBAR SPINE: flexon- mod loss increase NW, extension min loss increase NW (not as bad at flexion), SB min loss NE bilat, rotation min/mod loss bilat mild increase NW. Normal hip ROM without increase in symptoms. Normal IR motion bilat. Pt. has tightness in B hamstrings and tight in B hip flexors. MMT: Pt. has good strength in BLEs, except hip abd 4/5, flexion 4/5 (increase NW bilat), and ext 4/5. Core strength- poor+. Pt. had to myotomal weakness noted. GAIT: Pt. has flexed posture with gait, but has good arm swing, good step length bilaterally. No increase in symptoms with walking. STAIRS: Pt. has reciprocal pattern with use of BHR without increase in symptoms. - Special Tests L/S Slump test left side: Negative L/S Slump test right side: Negative L/S Left Straight Leg Raise: Negative L/S Right Straight Leg Raise: Negative - Goals Goal 1:: LTG: Pt. to be I with HEP. Goal Time Frame: 4-6 Weeks Goal 2:: STG: Pt. to have decreased LBP to 0-4/10 pain with wall walking/standing activities. Goal Time Frame: 2-4 Weeks Goal 3:: LTG: Pt. to complete all work and recreational activities with 0-2/10 pain. Goal Time Frame: 4-6 Weeks Goal 4:: LTG: Pt. to have increased core strength by 1/2 grade to decrease stress applied to lumbar spine with all recreational and work activities. Goal Time Frame: 4-6 Weeks Goal 5:: STG: Pt. to sleep throughout the night without increase in symptoms. Goal Time Frame: 2-4 Weeks Goal 6:: LTG: Pt. to have increased lumbar spine by 25% in all directions without increase in symptoms. - Rehabilitation Potential Physical Therapy Diagnosis: Pt. has signs and symptoms consistent with lumbar r adiculopathy, possible herniated disc. Pt. has pain with all motions of her lumbar spine, flexion worse than extension. She did not have a positive Rehabilitation Potential: Fair - Anticipated Interventions Patient/Client Instruction: Educate patient on: Condition, Plan of Care, Risk Factors, Benefits of Fitness Program For the Purpose of:: To foster healthy habits, To improve decision making, To facilitate caregiver knowledge, To improve self management, To improve ability to perform tasks related to life management, To improve tolerance to ADL's Therapeutic Exercise to Include: Strength training, Power training, Body mechanics, Postural training, Flexibilty training, In an aquatic setting, Passive ROM, Active ROM, Dynamic Lumbar Stabilization, Kera Exercises For the Purpose of:: To decrease pain, To decrease swelling/inflammation, To increase ROM, To improve nutrient delivery to tissue, To increase oxygenation perfusion, To improve muscle performance and motor function, To improve health of tissue, To decrease soft tissue restriction, To increase flexibility/ROM, To improve endurance Thank you for the opportunity to evaluate your patient. For Medicare and Medicare HMO plans, please review the plan of care and approve it. It will need to be FAXED BACK to us at [phone] for Medicare purposes. For Medicare only, by signing this I certify the plan of care. Please let me know if there are questions or concerns regarding this plan of care. Physician Signature: Date:
--- NOTE | 2020-05-30 08:50 | HP.PTDCSUM ---
It has been my pleasure to treat CHRISTOPHE PARRA referred by Dr. Julián Cantor DO, with the diagnosis of Lumbar herniated disc, lumbar radiculopathy for a total of 6 visit(s). Discharge Date: 05/30/20 Please see the following information for a summary of their discharge status. Subjective: Pt. is here today for her recheck of her symptoms. She reports overall not much change. She is still having pain in her back and L leg, reports some intermittent N/T in her R foot at times. Walking is generally better than sitting, but walking does cause increase in symptoms when done in more prolonged situations. Pt. is sitll able to work, but feels higher levels of pain as the day progresses. She reports an overall decrease in quality of life. I am afraid to go much because everything makes my back hurt. lumbar spine Pain Intensity (Out of 10): 8 % Improvement: 0 Objective/Function: ROM: Pt. continues to be limited with all over her lumbar ROM, flexion and extension worst mod loss in both, and both causing increased symptoms in lumbar spine. MMT: BLE strength is decent 5-/5 throughotu, no myotomal loss. She does have decreased L LE DTR 1+ compared to 2+ on R side. Sensation normal throughout BLEs to light and firm touch. Pt. had previously trialed land PT without success so she opted from aquatic therapy. This also did not provide much relief. We had foced on neutral spine core stability, light distraction in pool and attempting to increase overall spinal mobility. She continues to be guarded with her movements, mostly likely fear avoidence due to increased pain. Goal 1:: LTG: Pt. to be I with HEP. Goal Progress: Goal Met Goal 2:: STG: Pt. to have decreased LBP to 0-4/10 pain with wall walking/standing activities. Goal Progress: Not Progressing Goal 3:: LTG: Pt. to complete all work and recreational activities with 0-2/10 pain. Goal Progress: Not Progressing Goal 4:: LTG: Pt. to have increased core strength by 1/2 grade to decrease stress applied to lumbar spine with all recreational and work activities. Goal Progress: Progressing Goal 5:: STG: Pt. to sleep throughout the night without increase in symptoms. Goal Progress: Not Progressing Goal 6:: LTG: Pt. to have increased lumbar spine by 25% in all directions without increase in symptoms. Goal Progress: Not Progressing Plan: At this point in time she has made minimal progress with PT. I would suggest returning to physician to determine best course of action. Discharge Comments: Pt. was treated in PT in aquatic setting with focus on neutral spine core stability, gentle lumbar ROM and general mobility. She is unfortunately still having similar symptoms with out much progression. Due to symptoms being unchanged I would recommend that she return to her physician to determine best course of action at this point in time. If there are questions or concerns regarding this patient's physical therapy, please feel free to call me at [phone]. Thank you for the referral of this patient. Sincerely, MADHAV DenisT
== END 2020-05-30 09:26 | disposition home or self-care (01) ==
LOC: PT 08:30
PROVIDERS: PCP Internal Medicine; Referring Provider Orthopaedic Surgery; Visit Provider Orthopaedic Surgery
DX: M51.16 Intervertebral disc disorders with radiculopathy, lumbar region (principal)
CPT/HCPCS: 97113; 97161; 97164

== ENCOUNTER → 2020-07-03 16:45 | Outpatient (CLI) | payer MEDICAID, SELFPAY ==
--- NOTE | 2020-07-03 16:45 | MRI_ITS ---
STUDY: MRI LUMBAR SPINE WITHOUT CONTRAST REASON FOR EXAM: Female, 44 years old. painx 3 yrs, bilateral leg weakness TECHNIQUE: Standardized fat and water weighted pulse sequences were obtained in the sagittal and axial planes. COMPARISON: X-ray dated 03/17/2020 FINDINGS: Normal lumbar lordosis. There is no substantial scoliosis. Normal conus medullaris that terminates at the L1. L1-2: There is minimal disc space narrowing and endplate spondylosis. There is no significant disc herniation, central canal or foraminal stenosis. Mild facet arthropathy. L2-3: There is minimal disc space narrowing and endplate spondylosis. There is no significant disc herniation, central canal or foraminal stenosis. Mild facet arthrosis L3-4: There is minimal disc space narrowing and endplate spondylosis. There is no significant disc herniation, central canal or foraminal stenosis. Mild facet arthrosis. L4-5: There is minimal disc space narrowing and endplate spondylosis. There is no significant disc herniation, central canal or foraminal stenosis. Moderate facet arthrosis. L5-S1: There is mild disc space narrowing and endplates spondylosis. Mild disc osteophyte complex with small left paracentral protrusion with mild left lateral recess narrowing. No significant central canal stenosis. Mild right and minimal left foraminal stenosis. Normal visualized sacral ala. MRI/Spine Lumbar (Routine) IMPRESSION: Multilevel degenerative changes. L5/S1: Disc protrusion with mild left lateral disc narrowing. Moderate facet arthrosis. Electronically Signed: Sandra Yen MD at 11:07 EDT Tel , Service support ,
== END ==
PROVIDERS: PCP Internal Medicine; Referring Provider Orthopaedic Surgery; Visit Provider Orthopaedic Surgery
DX: M47.816 Spondylosis without myelopathy or radiculopathy, lumbar region (principal)
CPT/HCPCS: 72148

== ENCOUNTER 2020-12-11 16:36 | Observation (INO) | payer MEDICAID, SELFPAY ==
[2020-12-11 16:38] VITALS: BP 147/91; PULSE 89; RESP 18; TEMP 36.1; O2SAT 100; BMI 39.8
--- NOTE | 2020-12-11 17:23 | EDS_ITS ---
HPI History of Present Illness Chief Complaint: Abd Pain Informant: patient Onset/Context/Timing Onset: Today Context: Gradual Onset Current Severity: Moderate Maximum Severity: Moderate Narrative Narrative: Patient presents secondary to abdominal pain. She states this morning she developed right upper quadrant abdominal pain that she describes as spasms. Anastomose be wrapping around and is involving her back. She reports having fever and chills 2 days ago that improved with Tylenol. Yesterday she had mild fever. She denies chest pain or shortness of breath. [facility] Medical History H/O corrected congenital abnormality of eye Home Medications sucralfate 1 g PO 4X/DAY 08/13/16 [History Last Taken 01/28/20] fluticasone propionate 1 spray NASAL DAILY 04/17/19 [History Last Taken 01/28/20] naproxen 500 mg PO BID 04/17/19 [History Last Taken 01/28/20] omeprazole 40 mg PO BID 01/28/20 [History Last Taken 01/28/20] triamterene-hydrochlorothiazid 1 tab PO DAILY 01/28/20 [History Last Taken 01/28/20] aspirin 81 mg tablet,delayed release 81 mg PO DAILY tab 03/17/20 [History Last Taken Unknown] Allergy/AdvReac Type Severity Reaction Status Date / Time No Known Allergies Allergy Verified 12/11/20 16:37 Family History Father Leukemia CVA (cerebral vascular accident) Myocardial infarction Hypertension Mother Breast cancer CVA (cerebral vascular accident) Myocardial infarction Grandmother Arthritis Surgical History History of nasal surgery Social History household members: other details: daughter and mother housing: house Smoking Status: Never smoker alcohol intake: never what type of physical activity do you participate in: none do you feel safe at home: Yes ROS ROS ED Constitutional Constitutional ED: Reports chills and fever(s) Eyes Eyes: Denies change in vision ENT ENT ED: Denies sore throat Cardiovascular Cardiovascular: Denies chest pain Respiratory/Chest Respiratory/Chest: Denies cough or dyspnea Gastrointestinal Gastrointestinal: Reports abdominal pain; Denies diarrhea, nausea or vomiting Genitourinary Genitourinary ED: Denies dysuria Musculoskeletal Musculoskeletal: Reports back pain Integumentary Denies rash Neurologic Neurologic: Denies headache(s) or weakness Allergic/Immunologic Allergic/Immunologic ED: Denies urticaria EXAM Physical Exam Const Vital Signs: 12/11/20 16:38 12/11/20 19:01 Temperature 96.9 F L Temperature Source Temporal Pulse Rate 89 71 Respiratory Rate 18 15 Blood Pressure 147/91 H 142/66 H Blood Pressure Mean 109 91 Pulse Ox 100 98 Oxygen Delivery Method Room Air Room Air Positive well nourished and well developed General Appearance ED: well developed HEENT Reports normocephalic and head/scalp atraumatic Eyes PERRL and EOMs intact bilaterally Neck supple Chest Wall inspection of chest normal and palpation of chest normal Resp normal respiratory effort and clear to auscultation bilaterally Cardio regular rate and regular rhythm GI Auscultation: hypoactive bowel sounds Palpation: soft and tender RUQ Back/Spine Back/Spine Narrative: Paraspinal muscle tenderness in the low thoracic muscles bilaterally. Extremity normal to inspection Neuro oriented x3 and no sensory deficits noted Sensorium / Orientation: alert Motor Exam: strength 5/5 throughout Psych mental status grossly normal Skin no rashes or lesions noted MDM MDM MDM Narrative Medical decision making narrative: Patient was ordered morphine and Zofran for pain and nausea. Lab work and right upper quadrant ultrasound obtained. Lab Data Attestation: I reviewed the patient's lab results. Labs: Laboratory Results - last 24 hr 12/11/20 12/11/20 12/11/20 17:31 17:38 17:38 WBC 10.8 RBC 4.90 Hgb 13.2 Hct 42.9 MCV 87.6 MCH 26.9 L MCHC 30.8 L RDW Std Deviation 46.6 H RDW Coeff of Rai 14.6 Plt Count 414 MPV 9.6 Immature Gran % (Auto) 0.600 Neut % (Auto) 69.4 Lymph % (Auto) 23.0 [place] % (Auto) 6.0 Eos % (Auto) 0.7 Baso % (Auto) 0.3 Absolute Neuts (auto) 7.5 Absolute Lymphs (auto) 2.48 Nucleated RBC % 0 Sodium 135 L Potassium 3.6 Chloride 101 Carbon Dioxide 28.0 Anion Gap 6 BUN 18 Creatinine 0.90 Estim Creat Clear Calc 77.95 Est GFR (MDRD) Af Amer 86 Est GFR (MDRD) Non-Af 71 BUN/Creatinine Ratio 20.0 Glucose 92 Calcium 8.8 Total Bilirubin 0.40 Direct Bilirubin 0.09 AST 15 ALT 26 Alkaline Phosphatase 90 Total Protein 8.8 H Albumin 3.7 Globulin 5.1 H Lipase 89 Serum , Qual Urine Color Yellow Urine Clarity Clear Urine pH 5.0 Ur Specific [place] 1.015 Urine Protein Negative Urine Glucose (UA) Normal Urine Ketones Negative Urine Occult Blood 10 H Urine Nitrite Negative Urine Bilirubin Negative Urine Urobilinogen Normal Ur Leukocyte Esterase 25 H Urine RBC 0-5 SEEN Urine WBC 0 SEEN Ur Squamous Epith Cells 0-5 SEEN Urine Bacteria 0 SEEN Hyaline Casts 0-5 SEEN Urine Mucus 0 SEEN 12/11/20 17:38 WBC RBC Hgb Hct MCV MCH MCHC RDW Std Deviation RDW Coeff of Rai Plt Count MPV Immature Gran % (Auto) Neut % (Auto) Lymph % (Auto) [place] % (Auto) Eos % (Auto) Baso % (Auto) Absolute Neuts (auto) Absolute Lymphs (auto) Nucleated RBC % Sodium Potassium Chloride Carbon Dioxide Anion Gap BUN Creatinine Estim Creat Clear Calc Est GFR (MDRD) Af Amer Est GFR (MDRD) Non-Af BUN/Creatinine Ratio Glucose Calcium Total Bilirubin Direct Bilirubin AST ALT Alkaline Phosphatase Total Protein Albumin Globulin Lipase Serum , Qual NEGATIVE Urine Color Urine Clarity Urine pH Ur Specific [place] Urine Protein Urine Glucose (UA) Urine Ketones Urine Occult Blood Urine Nitrite Urine Bilirubin Urine Urobilinogen Ur Leukocyte Esterase Urine RBC Urine WBC Ur Squamous Epith Cells Urine Bacteria Hyaline Casts Urine Mucus Treatment and Re-Evaluation Comments:: Lab work is largely unremarkable. Surgeon is present in the emergency evaluating another patient. He does note the patient has significant evidence of cholelithiasis with thickened gallbladder wall consistent with cholecystitis. Patient is ordered a dose of antibiotics. Troponin, EKG, Covid swab added. Due to increased pain patient is given a dose of Dilaudid. Discharge Plan Triage Chief Complaint: Abd Pain ED Provider: Rivka Reddy Dx/Rx/DC Orders Clinical Impression: Acute cholecystitis Primary Care Provider: Em Santos Disposition Disposition: [facility]
--- NOTE | 2020-12-11 17:24 | US_ITS ---
STUDY: ABDOMINAL ULTRASOUND - RIGHT UPPER QUADRANT REASON FOR VISIT: Female, 45 years old RUQ pain TECHNIQUE: Ultrasound evaluation of the right upper quadrant was performed with real-time and static diaz-scale imaging. TECHNICAL QUALITY: Adequate. COMPARISON: None. FINDINGS: Liver: The liver measures 16.7 cm. There is diffusely increased echogenicity and coarsened echotexture likely representing hepatic steatosis. The bile ducts are without abnormal distention. There is hepatic color flow. The direction of portal flow is hepatopetal. There is no demonstrated mass lesion. Gallbladder: Wall echo shadow sign gallbladder suggesting stone filled gallbladder preventing confident wall measurement. No pericholecystic fluid. There is a positive sonographic Bello''s sign. Common Bile Duct (C.B.D.): The common bile duct measures 6.5 mm. Pancreas: Very poorly visualized. No peripancreatic fluid or mass lesion suggested. Right Kidney: Normal size of the right kidney. The right kidney measures 10.0 cm. In length Normal renal cortex. The right cortex measures 1.3 cm. There is no demonstrated renal mass or cyst. There is no right hydronephrosis. Normal color flow in the renal hilum. Normal color flow seen in the hepatic venous confluence. US/Abdomen Limited IMPRESSION: Wall echo shadow sign gallbladder suggesting diffuse stones. Positive Bello''s sign suggesting clinical diagnosis of cholecystitis. No appreciable gallbladder wall thickening on limited assessment due to shadowing stones. No pericholecystic fluid. Common bile duct is slightly dilated. No intrahepatic biliary ductal dilation. Hepatic steatosis. Electronically Signed: Charlie Teresa DO at 20:06 EDT Tel , Service support ,
[2020-12-11 17:36] LABS: Bacteria 0 SEEN /hpf (None Seen); Mucous, Urine 0 SEEN /hpf (<or=2+); White Blood Cells 0 SEEN /hpf (0-5)
[2020-12-11 17:37] LABS: Color, Urine Yellow (Yellow); Glucose, Dipstick Normal (Normal); Ketone-Dipstick Negative (Negative); Leukocyte Esterase-Dipstick 25 /ul (Negative); Nitrite-Dipstick Negative (Negative); Occult Blood-Urine 10 /ul (Negative); Protein-Dipstick Negative (Negative); Specific Gravity, Urine 1.015 (1.002-1.030); Urine Bilirubin Dipstick Negative (Negative); Urine Clarity Clear (Clear); Urine Urobilinogen Normal (Normal)
[2020-12-11 18:04] LABS: Absolute Lymphocyte Count 2.48 X10^3/uL (0.83-4.51); Absolute Neutrophil Count 7.5 X10^3/uL (2.0-7.7); Basophil# 0.03 X10^3/uL; Basophil% 0.3 % (0-1); Eosinophil# 0.08 X10^3/uL; Eosinophils% 0.7 % (0-5); Hematocrit 42.9 % (37-47); Hemoglobin 13.2 g/dL (12.0-15.0); Lymphocyte # 2.48 X10^3/ul (0.83-4.51); Mean Corp Hgb Conc 30.8 g/dL (32-36); Mean Corpuscular Hgb 26.9 pg (27.0-32.0); Mean Corpuscular Volume 87.6 fL (81-99); Mean Platelet Vol. 9.6 fl (6.2-12.0); Monocyte# 0.65 X10^3/uL; NRBC Flagged by Analyzer 0 % (0-5); Neutrophil % 69.4 % (47-70); Platelet Count 414 K/mm3 (150-450); RBC Distribution Width CV 14.6 % (11.6-14.6); RBC Distribution Width SD 46.6 fl (35.1-43.9); White Blood Count 10.8 K/mm3 (4.4-11.0)
[2020-12-11 18:04] LABS: Squamous Epithelial Cells - UA 0-5 SEEN /hpf (5-10)
[2020-12-11 18:05] LABS: Hyaline Cast 0-5 SEEN /lpf (0-5)
[2020-12-11 18:07] LABS: Red Blood Cells-Urine 0-5 SEEN /hpf (0-5)
[2020-12-11 18:29] LABS: AST(SGOT) 15 U/L (15-37); Alanine Aminotransfer ALT/SGPT 26 U/L (13-56); Albumin, Serum 3.7 g/dL (3.2-5.0); Alkaline Phosphatase 90 U/L (45-117); Anion Gap 6 (5-15); BUN 18 mg/dL (7-18); Bilirubin, Direct 0.09 mg/dL (0.00-0.30); Calcium,Total 8.8 mg/dL (8.5-10.1); Chloride 101 mmol/L (98-107); EST Glomerular Filtration Rate 71 mL/min (>60); Est Glom Filt Rate - Afr Amer 86 mL/min (>60); Estimated Creatinine Clearance 77.95 ml/min; Globulin 5.1 g/dL (2.2-4.2); Glucose 92 mg/dL (74-106); Lipase 89 U/L (73-393); Potassium 3.6 mmol/L (3.5-5.1); Protein, Total 8.8 g/dL (6.4-8.2); Sodium Level 135 mmol/L (136-145)
[2020-12-11 18:40] LABS: Internal QC Validated? YES +Cl - CLEAR BKGD; Pregnancy, Serum, hCG Quali. NEGATIVE Negative
[2020-12-11] MEDS: Morphine 4 MG/ML Syringe IV (19:00)
[2020-12-11 19:01] VITALS: BP 142/66; PULSE 71; RESP 15; O2SAT 98
[2020-12-11] MEDS: 0.9% Normal Saline 1,000 ML 150 ML IV ×2 (19:01→21:23)
[2020-12-11] MEDS: Ondansetron 4 MG/2 ML Vial IV ×2 (19:01→23:26)
--- NOTE | 2020-12-11 19:24 | EKG12_ITS ---
Test Reason : ABD PAIN Blood Pressure : / mmHG Vent. Rate : 073 BPM Atrial Rate : 073 BPM P-R Int : 144 ms QRS Dur : 080 ms QT Int : 408 ms P-R-T Axes : 054 026 029 degrees QTc Int : 449 ms Normal sinus rhythm Normal ECG Confirmed by PAUL HARRIS, DEYA ([id number]), movie editor TEA ALONSO ([id number]) on 12/15/2020 11:38:33 AM Referred By: SHWETHA Confirmed By:DEYA MILLER MD
--- NOTE | 2020-12-11 19:37 | PCM.HP.STD ---
HPI - General HPI Narrative CHRISTOPHE PARRA, is a 45 F who presents with right upper quadrant pain that started early this morning. The patient reports chills for the last 2 days as well as some low-grade fever. Patient reports no nausea or vomiting. The pain does radiate to the right back. She has never had this in the past. [facility] Medical History H/O corrected congenital abnormality of eye Home Medications sucralfate 1 g PO 4X/DAY 08/13/16 [History Last Taken 01/28/20] fluticasone propionate 1 spray NASAL DAILY 04/17/19 [History Last Taken 01/28/20] naproxen 500 mg PO BID 04/17/19 [History Last Taken 01/28/20] omeprazole 40 mg PO BID 01/28/20 [History Last Taken 01/28/20] triamterene-hydrochlorothiazid 1 tab PO DAILY 01/28/20 [History Last Taken 01/28/20] aspirin 81 mg tablet,delayed release 81 mg PO DAILY tab 03/17/20 [History Last Taken Unknown] Allergy/AdvReac Type Severity Reaction Status Date / Time No Known Allergies Allergy Verified 12/11/20 16:37 Family History Father Leukemia CVA (cerebral vascular accident) Myocardial infarction Hypertension Mother Breast cancer CVA (cerebral vascular accident) Myocardial infarction Grandmother Arthritis Surgical History History of nasal surgery Social History household members: other details: daughter and mother housing: house Smoking Status: Never smoker alcohol intake: never what type of physical activity do you participate in: none do you feel safe at home: Yes ROS Constitutional Constitutional: Reports chills and fever(s); Denies anorexia ENT HEENT: Denies abnormal hearing Cardiovascular Cardiovascular: Denies chest pain Respiratory/Chest Respiratory/Chest: Denies cough Gastrointestinal Gastrointestinal: Reports abdominal pain; Denies diarrhea, dysphagia, melena or nausea Genitourinary Genitourinary: Denies change in urinary stream Musculoskeletal Musculoskeletal: Denies abnormal gait Integumentary Integumentary: Denies jaundice Psychiatric Psychiatric: Denies anxiety Endocrine Endocrinology: Denies flushing Hematologic/Lymphatic Hematologic/Lymphatic: Denies easy bleeding Vital Signs Vital Signs Vital Signs: 12/11/20 16:38 12/11/20 19:01 Temperature 96.9 F L Temperature Source Temporal Pulse Rate 89 71 Respiratory Rate 18 15 Blood Pressure 147/91 H 142/66 H Blood Pressure Mean 109 91 Pulse Ox 100 98 Oxygen Delivery Method Room Air Room Air Weight Weight: 262 lb 2.074 oz Body Mass Index (BMI) 39.8 Physical Exam Const oriented x3 and no apparent distress HEENT normocephalic Eyes PERRL Neck full ROM Chest inspection of chest normal Resp normal respiratory effort Cardio regular rate and regular rhythm GI soft to palpation Palpation: tender RUQ Back/Spine no CVA tenderness Extremity normal to inspection Neuro oriented x3 and CN's II-XII intact bilaterally Results Lab / Micro Data Result Diagrams: 12/11/20 17:38 12/11/20 17:38 Labs: Laboratory Results - last 24 hr 12/11/20 17:31: Urine Color Yellow, Urine Clarity Clear, Urine pH 5.0, Ur Specific [place] 1.015, Urine Protein Negative, Urine Glucose (UA) Normal, Urine Ketones Negative, Urine Occult Blood 10 H, Urine Nitrite Negative, Urine Bilirubin Negative, Urine Urobilinogen Normal, Ur Leukocyte Esterase 25 H, Urine RBC 0-5 SEEN, Urine WBC 0 SEEN, Ur Squamous Epith Cells 0-5 SEEN, Urine Bacteria 0 SEEN, Hyaline Casts 0-5 SEEN, Urine Mucus 0 SEEN 12/11/20 17:38: WBC 10.8, RBC 4.90, Hgb 13.2, Hct 42.9, MCV 87.6, MCH 26.9 L, MCHC 30.8 L, RDW Std Deviation 46.6 H, RDW Coeff of Rai 14.6, Plt Count 414, MPV 9.6, Immature Gran % (Auto) 0.600, Neut % (Auto) 69.4, Lymph % (Auto) 23.0, [place] % (Auto) 6.0, Eos % (Auto) 0.7, Baso % (Auto) 0.3, Absolute Neuts (auto) 7.5, Absolute Lymphs (auto) 2.48, Nucleated RBC % 0 12/11/20 17:38: Sodium 135 L, Potassium 3.6, Chloride 101, Carbon Dioxide 28.0, Anion Gap 6, BUN 18, Creatinine 0.90, Estim Creat Clear Calc 77.95, Est GFR (MDRD) Af Amer 86, Est GFR (MDRD) Non-Af 71, BUN/Creatinine Ratio 20.0, Glucose 92, Calcium 8.8, Total Bilirubin 0.40, Direct Bilirubin 0.09, AST 15, ALT 26, Alkaline Phosphatase 90, Total Protein 8.8 H, Albumin 3.7, Globulin 5.1 H, Lipase 89 12/11/20 17:38: Serum , Qual NEGATIVE Assessment & Plan Assessment/Plan (1) Acute cholecystitis: PLAN: The patient has pain that started this morning. Ultrasound shows a thickened gallbladder wall at 4.5 cm with cholelithiasis. She does have a borderline white count as well. Patient does not report any letting up of the pain and she reports she has been having fevers and chills over the last 2 days. I believe the patient has acute cholecystitis and I recommend laparoscopic cholecystectomy. I discussed the procedure in detail with the patient. I discussed the risks, benefits, and alternatives of the procedure. I discussed the risks including but not limited to bleeding, infection, injury to surrounding organs such as the liver, bile duct, bowels. I did discuss the possibility of having to convert to an open procedure as well as the possibility that if any injuries occurred this may necessitate further surgery at a tertiary care center. I will admit the patient to the medical surgical unit and start antibiotics as well as IV fluids and keep her n.p.o. with IV antibiotics. I will plan for laparoscopic cholecystectomy tomorrow. Yared Mendoza MD Pager: [facility] [address] [place] [address], [address] [place] [address] Office:
[2020-12-11] MEDS: HYDROmorphone 0.5 MG/0.5 ML SYRINGE IV (19:49)
[2020-12-11 19:51] VITALS: BP 130/93; PULSE 70; RESP 18; TEMP 36.8; O2SAT 100
[2020-12-11 20:09] LABS: Troponin-I HS 5 pg/mL (3.0-54.0)
[2020-12-11 20:35] VITALS: BMI 39.6
[2020-12-11 20:36] VITALS: BP 140/65; PULSE 75; RESP 18; TEMP 36.6; O2SAT 99
[2020-12-11] MEDS: HYDROmorphone 1 MG/ML Syringe IV ×2 (21:24→23:31)
[2020-12-11] MEDS: Sucralfate 1 GM Tablet PO (21:24)
[2020-12-11] MEDS: Pantoprazole Sodium 40 MG Tablet PO (21:24)
[2020-12-12] VITALS (16 sets, daily range): BP systolic 125–166; BP diastolic 48–88; PULSE 50–87; RESP 14–18; TEMP 36.1–37; O2SAT 94–100; BMI 39.6
[2020-12-12] MEDS: HYDROmorphone 1 MG/ML Syringe IV ×3 (02:08→14:46)
[2020-12-12] MEDS: Ondansetron 4 MG/2 ML Vial IV ×2 (05:37→16:56)
[2020-12-12] MEDS: 0.9% Normal Saline 1,000 ML 100 ML IV ×3 (05:41→21:49)
[2020-12-12 06:43] LABS: Absolute Lymphocyte Count 1.22 X10^3/uL (0.83-4.51); Absolute Neutrophil Count 6.5 X10^3/uL (2.0-7.7); Basophil# 0.02 X10^3/uL; Basophil% 0.2 % (0-1); Eosinophil# 0.01 X10^3/uL; Eosinophils% 0.1 % (0-5); Hematocrit 38.6 % (37-47); Hemoglobin 11.7 g/dL (12.0-15.0); Lymphocyte # 1.22 X10^3/ul (0.83-4.51); Lymphocyte % 14.8 % (19-41); Mean Corp Hgb Conc 30.3 g/dL (32-36); Mean Corpuscular Hgb 26.8 pg (27.0-32.0); Mean Corpuscular Volume 88.3 fL (81-99); Mean Platelet Vol. 9.7 fl (6.2-12.0); Monocyte# 0.46 X10^3/uL; Monocyte% 5.6 % (0-10); NRBC Flagged by Analyzer 0 % (0-5); Neutrophil # 6.47 X10^3/uL (2.7-7.7); Neutrophil % 78.8 % (47-70); Platelet Count 350 K/mm3 (150-450); RBC Distribution Width CV 14.7 % (11.6-14.6); RBC Distribution Width SD 47.4 fl (35.1-43.9); Red Blood Count 4.37 M/mm3 (4.2-5.4); White Blood Count 8.2 K/mm3 (4.4-11.0)
--- NOTE | 2020-12-12 07:01 | RAD_ITS ---
CLINICAL HISTORY: Female, 45 years old. Status post cholecystectomy PROCEDURE: CHOLANGIOGRAM - intraoperative FLUOROSCOPY TIME (if supplied): (0:09) minutes/seconds TECHNIQUE: (All elements of maximal sterile barrier technique followed, including US elements as applicable) 9 seconds of fluoroscopy of the abdomen was utilized in the operating room during intraoperative cholangiogram and a single cine run is submitted for interpretation. FINDINGS: A cannula seen in the cystic duct remnant. There is prompt opacification of the biliary tree without evidence of filling defect to suggest common bile duct stone. There is passage of contrast through the ampulla into the duodenum. RAD/Cholangiogram/ O R,Initial IMPRESSION: No common bile duct stone. Electronically Signed: Spike Tang MD at 10:01 EDT Tel , Service support ,
--- NOTE | 2020-12-12 07:09 | PCM.PN.SRG ---
Subjective Subjective Patient reports ongoing pain and nausea with 1 episode of vomiting since admission Objective Data Objective Data Vital Signs: Vital Signs Temp Pulse Resp BP Pulse Ox 97.6 F L 50 L 16 128/61 H 100 12/12/20 05:28 12/12/20 05:28 12/12/20 05:28 12/12/20 05:28 12/12/20 05:28 Oxygen Delivery Method Room Air Weight: 261 lb 3.964 oz Body Mass Index (BMI) 39.6 Intake & Output: Intake and Output for Last 24 Hours 12/10/20 12/11/20 12/12/20 23:59 23:59 23:59 Intake Total 422.5 / 422.5 849.83 / 849.83 Output Total 700 / 700 Balance 422.5 / 422.5 149.83 / 149.83 Lab / Micro Data Result Diagrams: 12/12/20 06:16 12/11/20 17:38 Labs: Laboratory Results - last 24 hr 12/11/20 17:31: Urine Color Yellow, Urine Clarity Clear, Urine pH 5.0, Ur Specific [place] 1.015, Urine Protein Negative, Urine Glucose (UA) Normal, Urine Ketones Negative, Urine Occult Blood 10 H, Urine Nitrite Negative, Urine Bilirubin Negative, Urine Urobilinogen Normal, Ur Leukocyte Esterase 25 H, Urine RBC 0-5 SEEN, Urine WBC 0 SEEN, Ur Squamous Epith Cells 0-5 SEEN, Urine Bacteria 0 SEEN, Hyaline Casts 0-5 SEEN, Urine Mucus 0 SEEN 12/11/20 17:38: WBC 10.8, RBC 4.90, Hgb 13.2, Hct 42.9, MCV 87.6, MCH 26.9 L, MCHC 30.8 L, RDW Std Deviation 46.6 H, RDW Coeff of Rai 14.6, Plt Count 414, MPV 9.6, Immature Gran % (Auto) 0.600, Neut % (Auto) 69.4, Lymph % (Auto) 23.0, [place] % (Auto) 6.0, Eos % (Auto) 0.7, Baso % (Auto) 0.3, Absolute Neuts (auto) 7.5, Absolute Lymphs (auto) 2.48, Nucleated RBC % 0 12/11/20 17:38: Sodium 135 L, Potassium 3.6, Chloride 101, Carbon Dioxide 28.0, Anion Gap 6, BUN 18, Creatinine 0.90, Estim Creat Clear Calc 77.95, Est GFR (MDRD) Af Amer 86, Est GFR (MDRD) Non-Af 71, BUN/Creatinine Ratio 20.0, Glucose 92, Calcium 8.8, Total Bilirubin 0.40, Direct Bilirubin 0.09, AST 15, ALT 26, Alkaline Phosphatase 90, Total Protein 8.8 H, Albumin 3.7, Globulin 5.1 H, Lipase 89 12/11/20 17:38: Serum , Qual NEGATIVE 12/11/20 19:42: Troponin I High Sens 5 12/12/20 06:16: WBC 8.2, RBC 4.37, Hgb 11.7 L, Hct 38.6, MCV 88.3, MCH 26.8 L, MCHC 30.3 L, RDW Std Deviation 47.4 H, RDW Coeff of Rai 14.7 H, Plt Count 350, MPV 9.7, Immature Gran % (Auto) 0.500, Neut % (Auto) 78.8 H, Lymph % (Auto) 14.8 L, [place] % (Auto) 5.6, Eos % (Auto) 0.1, Baso % (Auto) 0.2, Absolute Neuts (auto) 6.5, Absolute Lymphs (auto) 1.22, Nucleated RBC % 0 Micro: Microbiology 12/11/20 19:45 Nasal Secretion SARS-CoV-2 Antigen (Rapid) - Final Radiography Diagnostic Testing: Radiology Impression Abdomen Ultrasound 12/11/20 17:24 IMPRESSION: Wall echo shadow sign gallbladder suggesting diffuse stones. Positive Bello''s sign suggesting clinical diagnosis of cholecystitis. No appreciable gallbladder wall thickening on limited assessment due to shadowing stones. No pericholecystic fluid. Common bile duct is slightly dilated. No intrahepatic biliary ductal dilation. Hepatic steatosis. Electronically Signed: Charlie Teersa DO at 20:06 EDT Tel , Service support , Physical Exam Const alert and oriented x3 Resp normal respiratory effort and normal air movement Cardio regular rate and regular rhythm GI soft to palpation and non-distended Palpation: tender RUQ Assessment & Plan Assessment/Plan (1) Acute cholecystitis: PLAN: The patient is having ongoing abdominal pain and likely has acute cholecystitis. I recommend laparoscopic cholecystectomy today. Yared Mendoza MD Pager: [facility] [address] [place] [address] [address] [place] [address] Office:
[2020-12-12 07:12] LABS: ALB/GLOB Ratio 0.7 RATIO (0.9-2.4); AST(SGOT) 137 U/L (15-37); Alanine Aminotransfer ALT/SGPT 113 U/L (13-56); Albumin, Serum 3.1 g/dL (3.2-5.0); Alkaline Phosphatase 114 U/L (45-117); Anion Gap 8 (5-15); BUN 13 mg/dL (7-18); BUN/Creat Ratio 18.4 RATIO (10-20); Calcium,Total 8.3 mg/dL (8.5-10.1); Chloride 104 mmol/L (98-107); Creatinine, Serum 0.71 mg/dL (0.55-1.02); EST Glomerular Filtration Rate 94 mL/min (>60); Est Glom Filt Rate - Afr Amer 114 mL/min (>60); Estimated Creatinine Clearance 98.81 ml/min; Globulin 4.6 g/dL (2.2-4.2); Glucose 118 mg/dL (74-106); Potassium 4.4 mmol/L (3.5-5.1); Protein, Total 7.7 g/dL (6.4-8.2); Sodium Level 135 mmol/L (136-145)
--- NOTE | 2020-12-12 08:30 | GALL_PTH ---
PATIENT: CHRISTOPHE HART LOC: MS3 U#:[id number] AGE/SX: 45/F ROOM: WA316 RE12/11/[address]: Dr. Yared Mendoza MD : 1975 BED: 1 DIS: 12/15/2020 SPEC #: [id number] RECD: 12/12/20 14:48 STATUS: JOSÉ ANTONIO KING #: [id number] ANGIE: 12/12/20 08:[address]: Yared Mendoza DEPT: SURGICAL PATHOLOGY RECD BY: Heavenly Swanson ENTERED: 12/15/20 09:07 SP TYPE: CARMINA LE DR: Dr. Em Santos MD Tissues: Gallbladder, NOS Procedures: Surgery Specimen Level III HEADER OPERATION: Laparoscopic cholecystectomy with IOC PRE-OP DIAGNOSIS: Acute cholecystitis TISSUE SUBMITTED: Gallbladder MICROSCOPIC DIAGNOSIS Gallbladder, cholecystectomy: Chronic cholecystitis and cholelithiasis with denudation of mucosa. AM:cal 12/16/2020 MICROSCOPIC DESCRIPTION Slides are reviewed. GROSS DESCRIPTION Received is one container labeled with the patient's name and designated gallbladder. The specimen consists of a gallbladder measuring 6 cm in length and up to 3 cm in diameter. The external surface is pink-pulido, smooth and glistening for the most part. Focally it is granular, hemorrhagic and contains cautery artifact. The gallbladder contains a large brown, ovoid stone measuring 4 x 2.5 x 2.5 cm. Pulido, mucoid bile is noted close to cystic duct area. The mucosa is bile-stained and without any mass lesions. The gallbladder wall measures up to 0.2 cm in thickness. Scrum Product Owner sections from the gallbladder and the cystic duct are submitted in two cassettes. The area containing thick, mucoid bile close to cystic duct is submitted in entirety. / AYO:cal 12/15/20 TC:3 CPT: 01302
[2020-12-12] MEDS: Lactated Ringers 1,000 ML 100 ML IV (09:16)
[2020-12-12] MEDS: Bupivacaine 0.25% 30 ML Vial (09:59)
--- NOTE | 2020-12-12 10:30 | PCM.OPRPT ---
Problems Associated Problem List Diagnoses (1) Acute cholecystitis: Report of Operation Date of Procedure: 12/12/20 Pre-Operative Diagnosis: Acute cholecystitis Post-Operative Diagnosis: Same Surgery/Procedure Performed:: Laparoscopic cholecystectomy with cholangiogram Specimen's removed: Gallbladder and contents Description of Procedure: After obtaining informed consent patient was brought back to the operating room. General anesthesia was induced. The abdomen was prepped and draped in usual sterile fashion. A small midline incision was made superior to the umbilicus and deepened to the level of fascia. The fascia was elevated and incised. Next the peritoneum was elevated and incised in the same fashion. Finger sweep was performed and the Haji trocar was placed into the abdomen. The balloon was inflated. The abdomen was inflated to 15 mmHg. Next a camera was introduced into the abdomen and the abdomen was inspected. Next under direct visualization three 5-mm ports were placed one subxiphoid and 2 subcostal. Next the gallbladder was elevated and retracted toward the right shoulder. The peritoneum was stripped from the gallbladder. The infundibulum was located and retracted laterally. Next the triangle of [place]ot was dissected and the cystic duct and cystic artery were identified. Cholangiograms were performed. The Jansen clamp was used to clamp across the infundibulum and the catheter needle was inserted into the gallbladder. Under fluoroscopy contrast was instilled into the gallbladder and the common duct, cystic duct as well as proximal hepatic ducts were identified. There was good filling of the duodenum. There were no filling defects noted in the common bile duct. The clamp was removed as well as the needle and the infundibulum was grasped once more. Three hemolock clips were placed across the cystic duct. The cystic duct was then divided leaving 2 clips on the stump. The cystic artery was clipped and divided in the same fashion. The hook cautery was then used to take the gallbladder off of the gallbladder bed. Hemostasis was obtained. Gallbladder fossa was irrigated and no active bleeding or bile leakage was noted. Next the camera was introduced in the subxiphoid port. An Endopouch bag was placed through the umbilical port and the gallbladder was placed into it. The gallbladder was then removed through the umbilical incision. The camera was then reinserted through the umbilical port. The gallbladder fossa was inspected once more and noted to be hemostatic with no leaking bile. The abdomen was suctioned dry. The 5 mm ports were removed under direct visualization. The umbilical port was then removed and the air was removed from the abdomen. Next using an 0 Vicryl suture the umbilical fascia was closed in a [id number] fashion. The umbilical port site was irrigated local anesthetic was administered to all the incisions. All the incisions were closed with interrupted subcuticular 4-0 Monocryl sutures followed by Steri-Strips and dressings. The patient was awoken and taken to PACU in stable condition. Admit VTE Documentation VTE Mechan Device Prophylaxis: SCD's
--- NOTE | 2020-12-12 10:32 | PCM.DC.SUM ---
Providers Date of Admission: 12/11/20 Primary Care Physician: Dr. Em Santos MD Reason For Visit: ACUTE CHOLECYSTITIS Diagnosis Discharge Diagnosis (1) Acute cholecystitis: Status: Acute Code(s): K81.0 - Acute cholecystitis Medications at Discharge Home Medications sucralfate 1 g PO 4X/DAY 08/13/16 fluticasone propionate 1 spray NASAL DAILY 04/17/19 naproxen 500 mg PO BID PRN 04/17/19 omeprazole 40 mg PO BID 01/28/20 triamterene-hydrochlorothiazid 1 tab PO DAILY 01/28/20 aspirin 81 mg tablet,delayed release 81 mg PO DAILY tab 03/17/20 acetaminophen [Tylenol] 650 mg PO Q4H PRN PRN #0 tab 12/12/20 oxycodone 5 - 10 mg PO Q4H PRN 5 Days #30 tab 12/12/20 Hospital Course Operations cholecystecomy Summary of Care Provided Hospital Course: Patient presented with right upper quadrant pain was found to have acute cholecystitis with cholelithiasis. Patient was admitted and kept on antibiotics and the following morning she was taken for laparoscopic cholecystectomy with cholangiogram. She had a large stone in the gallbladder with inflammation. Following surgery she was admitted back to the floor and slowly advancing her diet and then discharged home. Weight / BMI Weight Weight: 261 lb 3.964 oz Body Mass Index (BMI) 39.6 ABG / Lab / Microbiology Data Result Diagrams: 12/12/20 06:16 12/12/20 06:16 Laboratory: Laboratory Results - last 24 hr 12/11/20 17:31: Urine Color Yellow, Urine Clarity Clear, Urine pH 5.0, Ur Specific Van 1.015, Urine Protein Negative, Urine Glucose (UA) Normal, Urine Ketones Negative, Urine Occult Blood 10 H, Urine Nitrite Negative, Urine Bilirubin Negative, Urine Urobilinogen Normal, Ur Leukocyte Esterase 25 H, Urine RBC 0-5 SEEN, Urine WBC 0 SEEN, Ur Squamous Epith Cells 0-5 SEEN, Urine Bacteria 0 SEEN, Hyaline Casts 0-5 SEEN, Urine Mucus 0 SEEN 12/11/20 17:38: WBC 10.8, RBC 4.90, Hgb 13.2, Hct 42.9, MCV 87.6, MCH 26.9 L, MCHC 30.8 L, RDW Std Deviation 46.6 H, RDW Coeff of Rai 14.6, Plt Count 414, MPV 9.6, Immature Gran % (Auto) 0.600, Neut % (Auto) 69.4, Lymph % (Auto) 23.0, [place] % (Auto) 6.0, Eos % (Auto) 0.7, Baso % (Auto) 0.3, Absolute Neuts (auto) 7.5, Absolute Lymphs (auto) 2.48, Nucleated RBC % 0 12/11/20 17:38: Sodium 135 L, Potassium 3.6, Chloride 101, Carbon Dioxide 28.0, Anion Gap 6, BUN 18, Creatinine 0.90, Estim Creat Clear Calc 77.95, Est GFR (MDRD) Af Amer 86, Est GFR (MDRD) Non-Af 71, BUN/Creatinine Ratio 20.0, Glucose 92, Calcium 8.8, Total Bilirubin 0.40, Direct Bilirubin 0.09, AST 15, ALT 26, Alkaline Phosphatase 90, Total Protein 8.8 H, Albumin 3.7, Globulin 5.1 H, Lipase 89 12/11/20 17:38: Serum , Qual NEGATIVE 12/11/20 19:42: Troponin I High Sens 5 12/12/20 06:16: WBC 8.2, RBC 4.37, Hgb 11.7 L, Hct 38.6, MCV 88.3, MCH 26.8 L, MCHC 30.3 L, RDW Std Deviation 47.4 H, RDW Coeff of Rai 14.7 H, Plt Count 350, MPV 9.7, Immature Gran % (Auto) 0.500, Neut % (Auto) 78.8 H, Lymph % (Auto) 14.8 L, [place] % (Auto) 5.6, Eos % (Auto) 0.1, Baso % (Auto) 0.2, Absolute Neuts (auto) 6.5, Absolute Lymphs (auto) 1.22, Nucleated RBC % 0 12/12/20 06:16: Sodium 135 L, Potassium 4.4, Chloride 104, Carbon Dioxide 23.0, Anion Gap 8, BUN 13, Creatinine 0.71, Estim Creat Clear Calc 98.81, Est GFR (MDRD) Af Amer 114, Est GFR (MDRD) Non-Af 94, BUN/Creatinine Ratio 18.4, Glucose 118 H, Calcium 8.3 L, Total Bilirubin 1.00, AST 137 H, ALT 113 H, Alkaline Phosphatase 114, Total Protein 7.7, Albumin 3.1 L, Globulin 4.6 H, Albumin/Globulin Ratio 0.7 L Microbiology: Microbiology 12/11/20 19:45 Nasal Secretion SARS-CoV-2 Antigen (Rapid) - Final Radiography Diagnostic Testing: Radiology Impression Abdomen Ultrasound 12/11/20 17:24 IMPRESSION: Wall echo shadow sign gallbladder suggesting diffuse stones. Positive Bello''s sign suggesting clinical diagnosis of cholecystitis. No appreciable gallbladder wall thickening on limited assessment due to shadowing stones. No pericholecystic fluid. Common bile duct is slightly dilated. No intrahepatic biliary ductal dilation. Hepatic steatosis. Electronically Signed: Charlie Teresa DO at 20:06 EDT Tel , Service support , Cholangiogram 12/12/20 07:01 IMPRESSION: No common bile duct stone. Electronically Signed: Spike Tang MD at 10:01 EDT Tel , Service support , D/C Instructions Discharge Diet: Light diet - advance as tolerated Discharge Activity: May Not Drive (for 2-3 days or while taking narcotic pain medications.) and - (Do not drive, work heavy equipment or sign legal documents for 24 hours.) May shower in (days): 1 Lifting Restrictions: 20 lbs for 2 weeks Additional Activity Instructions: Pain medication may cause nausea. You should typically eat light foods as you take your pain medications. Pain medication may also cause constipation. If this is a problem for you, please discuss with your doctor. Call your doctor if your incision/area has: Continuous Slow Oozing, Sudden Increased Bleeding, Increased Pain/ Swelling, Increased Redness and Foul Smelling Discharge Call your doctor if you observe: Fever of 101 or Higher Suture Line Care: Avoid Pulling/Pushing and Avoid Pinching/Bending Cleanse incision/area with: Soap & Water Additional Dressing/Incision Instructions: Leave operative bandaids on for 2 days. When you remove dressing, leave Steri-Strips on until your follow-up appointment, or until the Steri-Strips fall off on their own. Please Follow Up With: Yared Mendoza MD When: Please call to schedule 2 week follow up appointment. [phone] Meaningful Use Info Meaningful Use Diagnoses (Choose all that apply): None applicable Discharge Plan Admission Admit Date/Time: 12/11/20 19:37 Attending Provider: Yared Mendoza Primary Care Provider: Em Santos Discharge Orders/Prescriptions Prescriptions: New acetaminophen [Tylenol] 325 mg Tablet 650 mg PO Q4H PRN PRN (Reason: P/F) Qty: 0 RF: 0 oxycodone 5 mg tablet 5 - 10 mg PO Q4H PRN (Reason: pain) 5 Days Qty: 30 RF: 0 Continued aspirin 81 mg tablet,delayed release (DR/EC) 81 mg PO DAILY RF: 0 sucralfate 1 GM tablet 1 g PO 4X/DAY RF: 0 naproxen 250 MG tablet 500 mg PO BID PRN (Reason: Pain) RF: 0 fluticasone propionate 9.9 ML spray,suspension 1 spray NASAL DAILY RF: 0 omeprazole 40 MG capsule,delayed release(DR/EC) 40 mg PO BID RF: 0 triamterene-hydrochlorothiazid 1 EACH tablet 1 tab PO DAILY RF: 0 Referrals / Follow Up: Em Santos MD [Primary Care Provider] - Disposition Disposition (needs filled in before D/C Order can be placed): Home, Self Care
[2020-12-12] MEDS: Triamterene 37.5MG/Hctz 25MG Capsule 1 CAP PO (14:47)
[2020-12-12] MEDS: Pantoprazole Sodium 40 MG Tablet PO ×2 (14:47→21:49)
[2020-12-12] MEDS: Sucralfate 1 GM Tablet PO ×3 (14:47→21:49)
[2020-12-12] MEDS: 0.9% Saline Lock 10 ML Syringe IV (16:57)
[2020-12-12] MEDS: oxyCODONE 5 MG Tablet PO (18:53)
[2020-12-13] MEDS: oxyCODONE 5 MG Tablet PO ×3 (01:16→14:08)
[2020-12-13 01:24] VITALS: BP 134/62; PULSE 66; RESP 16; TEMP 36.9; O2SAT 97
[2020-12-13 05:53] VITALS: BP 122/53; PULSE 65; RESP 16; TEMP 37.1; O2SAT 94
[2020-12-13] MEDS: Sucralfate 1 GM Tablet PO ×4 (05:59→22:44)
[2020-12-13] MEDS: 0.9% Normal Saline 1,000 ML 100 ML IV ×3 (06:01→22:46)
[2020-12-13 09:14] VITALS: BP 133/58; PULSE 67; RESP 14; TEMP 37.2; O2SAT 96
[2020-12-13] MEDS: Triamterene 37.5MG/Hctz 25MG Capsule 1 CAP PO (09:18)
[2020-12-13] MEDS: Pantoprazole Sodium 40 MG Tablet PO ×2 (09:19→22:44)
[2020-12-13] MEDS: HYDROmorphone 1 MG/ML Syringe IV (09:22)
[2020-12-13] MEDS: 0.9% Saline Lock 10 ML Syringe IV (09:22)
[2020-12-13] MEDS: Fluticasone 0.05% 1 SPRAY NASAL.SRY NASAL (09:22)
[2020-12-13 12:00] VITALS: BP 119/64; PULSE 77; RESP 16; TEMP 37.1; O2SAT 96
[2020-12-13] MEDS: DiphenhydrAMINE 25 MG Capsule PO (14:02)
[2020-12-13 20:01] VITALS: BP 121/55; PULSE 79; RESP 18; TEMP 36.8; O2SAT 96
--- NOTE | 2020-12-13 20:08 | NURSING ---
Encouraged pt to go for a walk. Pt states she already walked today. This RN discussed the benefits of getting out of bed and walking with the pt. Pt refused at this time.
--- NOTE | 2020-12-13 20:25 | PCM.PN.SRG ---
Subjective Subjective patient complaint of 8 out of 10 pain has not ambulated much, lying in bed, she states that she has only sat up in a chair nurses note that patient is loathe to increase physical activity Objective Data Objective Data Vital Signs: Vital Signs Temp Pulse Resp BP Pulse Ox 98.2 F 79 18 121/55 H 96 12/13/20 20:01 12/13/20 20:01 12/13/20 20:01 12/13/20 20:01 12/13/20 20:01 Oxygen Delivery Method Room Air Weight: 118.5 kg Body Mass Index (BMI) 39.6 Intake & Output: Intake and Output for Last 24 Hours 12/11/20 12/12/20 12/13/20 23:59 23:59 23:59 Intake Total 422.5 / 422.5 3514.83 / 3514.83 1893.33 / 1893.33 Output Total 1550 / 2550 1900 / 1900 Balance 422.5 / 422.5 1964.83 / 964.83 -6.67 / -6.67 Lab / Micro Data Result Diagrams: 12/12/20 06:16 12/12/20 06:16 Micro: Microbiology 12/11/20 19:45 Nasal Secretion SARS-CoV-2 Antigen (Rapid) - Final Physical Exam Const alert and oriented x3 Resp normal respiratory effort GI normal to inspection, nondistended, normoactive bowel sounds GI Narrative: dressings intact - no seepage Assessment & Plan Assessment/Plan (1) Status post laparoscopic cholecystectomy: PLAN: encouraged physical activity patient wants to stay in hospital longer
--- NOTE | 2020-12-13 22:32 | NURSING ---
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 tolerated well
--- NOTE | 2020-12-14 01:00 | PCS.PANDOC ---
PANDEMIC DOCUMENTATION INITIATED: Date: 11/17/2020 Time: 190
[2020-12-14 02:18] VITALS: BP 121/63; PULSE 72; RESP 18; TEMP 37; O2SAT 95
[2020-12-14] MEDS: oxyCODONE 5 MG Tablet PO ×3 (05:03→20:49)
[2020-12-14] MEDS: Sucralfate 1 GM Tablet PO ×4 (06:48→20:49)
[2020-12-14 08:20] VITALS: BP 113/70; PULSE 81; RESP 16; TEMP 37; O2SAT 97
--- NOTE | 2020-12-14 08:30 | PCS.PANDOC ---
PANDEMIC DOCUMENTATION INITIATED: Date: 12/11/20 Time: 2026
[2020-12-14] MEDS: Fluticasone 0.05% 1 SPRAY NASAL.SRY NASAL (10:21)
[2020-12-14] MEDS: Triamterene 37.5MG/Hctz 25MG Capsule 1 CAP PO (10:21)
[2020-12-14] MEDS: Pantoprazole Sodium 40 MG Tablet PO ×2 (10:21→20:49)
[2020-12-14] MEDS: Acetaminophen 325 MG Tablet 650 MG PO ×2 (10:28→20:49)
[2020-12-14 14:00] VITALS: BP 141/72; PULSE 77; RESP 16; TEMP 36.8; O2SAT 100
[2020-12-14 16:20] VITALS: BP 125/74; PULSE 75; RESP 16; TEMP 36.9; O2SAT 97
--- NOTE | 2020-12-14 16:50 | PCM.PN.SRG ---
Subjective Subjective patient still complaint of pain also now complaint of itching not ambulating much according to nurses Objective Data Objective Data Vital Signs: Vital Signs Temp Pulse Resp BP Pulse Ox 98.2 F 77 16 141/72 H 100 12/14/20 14:00 12/14/20 14:00 12/14/20 14:00 12/14/20 14:00 12/14/20 14:00 Oxygen Delivery Method Room Air Weight: 118.5 kg Body Mass Index (BMI) 39.6 Intake & Output: Intake and Output for Last 24 Hours 12/12/20 12/13/20 12/14/20 23:59 23:59 23:59 Intake Total 3514.83 / 3514.83 3115.75 / 3115.75 488.33 / 488.33 Output Total 1550 / 2550 3050 / 3050 1100 / 1100 Balance 1964.83 / 964.83 65.75 / 65.75 -611.67 / -611.67 Lab / Micro Data Result Diagrams: 12/12/20 06:16 12/12/20 06:16 Micro: Microbiology 12/11/20 19:45 Nasal Secretion SARS-CoV-2 Antigen (Rapid) - Final Physical Exam Narrative abdomen is soft and benign with dressings intact Assessment & Plan Assessment/Plan (1) Status post laparoscopic cholecystectomy: PLAN: patient with low motivation for postoperative rehabilitation, didn't want to go home today
[2020-12-14 21:47] VITALS: BP 122/67; PULSE 74; RESP 16; TEMP 37; O2SAT 94
[2020-12-15 02:34] VITALS: BP 116/76; PULSE 79; RESP 16; TEMP 36.4; O2SAT 95
[2020-12-15] MEDS: Sucralfate 1 GM Tablet PO ×2 (06:08→11:05)
[2020-12-15] MEDS: oxyCODONE 5 MG Tablet PO (06:08)
--- NOTE | 2020-12-15 07:37 | PN.SURG_ITS ---
Subjective Subjective Patient reports pain is tolerable with medication it is a 3 out of 10. She is passing flatus and tolerating a diet. Objective Data Objective Data Vital Signs: Vital Signs Temp Pulse Resp BP Pulse Ox 97.6 F L 79 16 116/76 95 12/15/20 02:34 12/15/20 02:34 12/15/20 02:34 12/15/20 02:34 12/15/20 02:34 Oxygen Delivery Method Room Air Weight: 261 lb 3.964 oz Body Mass Index (BMI) 39.6 Intake & Output: Intake and Output for Last 24 Hours 12/13/20 12/14/20 12/15/20 23:59 23:59 23:59 Intake Total 3115.75 / 3115.75 538.33 / 538.33 50 / 50 Output Total 3050 / 3050 2100 / 2100 400 / 400 Balance 65.75 / 65.75 -1561.67 / -1561.67 -350 / -350 Lab / Micro Data Result Diagrams: 12/12/20 06:16 12/12/20 06:16 Micro: Microbiology 12/11/20 19:45 Nasal Secretion SARS-CoV-2 Antigen (Rapid) - Final Physical Exam Const no apparent distress Resp normal respiratory effort Cardio regular rate GI soft to palpation and non-tender Assessment & Plan Assessment/Plan (1) Acute cholecystitis: PLAN: Patient is tolerating a diet and passing flatus and pain is controlled on p.o. medication. Will discharge patient home. Yared Mendoza MD Pager: [facility] [address] [place] [address], [address] [place] [address] Office:
[2020-12-15 08:50] LABS: Absolute Lymphocyte Count 1.33 X10^3/uL (0.83-4.51); Absolute Neutrophil Count 6.6 X10^3/uL (2.0-7.7); Basophil# 0.02 X10^3/uL; Basophil% 0.2 % (0-1); Eosinophils% 2.3 % (0-5); Hematocrit 37.7 % (37-47); Hemoglobin 11.6 g/dL (12.0-15.0); Lymphocyte # 1.33 X10^3/ul (0.83-4.51); Lymphocyte % 15.4 % (19-41); Mean Corp Hgb Conc 30.8 g/dL (32-36); Mean Corpuscular Hgb 27.2 pg (27.0-32.0); Mean Corpuscular Volume 88.5 fL (81-99); Mean Platelet Vol. 9.7 fl (6.2-12.0); Monocyte# 0.47 X10^3/uL; Monocyte% 5.4 % (0-10); NRBC Flagged by Analyzer 0 % (0-5); Neutrophil # 6.58 X10^3/uL (2.7-7.7); Neutrophil % 76.4 % (47-70); Platelet Count 308 K/mm3 (150-450); RBC Distribution Width CV 14.8 % (11.6-14.6); RBC Distribution Width SD 47.8 fl (35.1-43.9); Red Blood Count 4.26 M/mm3 (4.2-5.4); White Blood Count 8.6 K/mm3 (4.4-11.0)
[2020-12-15 08:54] VITALS: BP 118/64; PULSE 74; RESP 18; TEMP 36.7; O2SAT 96
[2020-12-15] MEDS: Triamterene 37.5MG/Hctz 25MG Capsule 1 CAP PO (08:55)
[2020-12-15] MEDS: Fluticasone 0.05% 1 SPRAY NASAL.SRY NASAL (08:55)
[2020-12-15] MEDS: Pantoprazole Sodium 40 MG Tablet PO (08:55)
[2020-12-15 09:09] LABS: ALB/GLOB Ratio 0.6 RATIO (0.9-2.4); AST(SGOT) 96 U/L (15-37); Alanine Aminotransfer ALT/SGPT 140 U/L (13-56); Alkaline Phosphatase 160 U/L (45-117); Anion Gap 7 (5-15); BUN 10 mg/dL (7-18); BUN/Creat Ratio 13.7 RATIO (10-20); Chloride 101 mmol/L (98-107); Creatinine, Serum 0.73 mg/dL (0.55-1.02); EST Glomerular Filtration Rate 90 mL/min (>60); Est Glom Filt Rate - Afr Amer 109 mL/min (>60); Estimated Creatinine Clearance 96.11 ml/min; Globulin 4.8 g/dL (2.2-4.2); Glucose 101 mg/dL (74-106); Potassium 3.7 mmol/L (3.5-5.1); Protein, Total 7.8 g/dL (6.4-8.2); Sodium Level 137 mmol/L (136-145)
[2020-12-15 13:27] VITALS: BP 129/73; PULSE 86; RESP 18; TEMP 36.9; O2SAT 97
== END 2020-12-15 13:53 | disposition home or self-care (01) ==
LOC: ED 17:54 → MS3 19:47
PROVIDERS: Admitting Provider Surgery; Emergency Provider Emergency Medicine; PCP Internal Medicine; Visit Provider Surgery
PROC: (CPT 47610; principal; 2020-12-12 08:10)
DX: K80.12 Calculus of gallbladder with acute and chronic cholecystitis without obstruction (principal); Z79.899 Other long term (current) drug therapy; Z79.82 Long term (current) use of aspirin; G47.33 Obstructive sleep apnea (adult) (pediatric); G43.909 Migraine, unspecified, not intractable, without status migrainosus
CPT/HCPCS: 00790; 47563; 36415; 74300; 76000; 76705; 80048; 80053; 80076; 81001; 83690; 84484; 84703; 85025; 87426; 88304; 93005; 96361; 96365; 96366; 96375; 96376; 99218; 99284; J7030; J7040; J7050; J7120; A4216; G0378; J2405

== ENCOUNTER 2021-02-03 14:01 | Emergency (ER) | payer MEDICAID, SELFPAY ==
[2021-02-03 14:02] VITALS: BP 133/77; PULSE 71; RESP 18; TEMP 36.4; O2SAT 97; BMI 39.6
--- NOTE | 2021-02-03 15:10 | EKG12_ITS ---
Test Reason : CP Blood Pressure : / mmHG Vent. Rate : 075 BPM Atrial Rate : 075 BPM P-R Int : 158 ms QRS Dur : 086 ms QT Int : 366 ms P-R-T Axes : 054 012 025 degrees QTc Int : 408 ms Normal sinus rhythm Normal ECG Confirmed by PAUL HARRIS, DEYA ([id number]), purchase request editor TEA ALONSO ([id number]) on 02/05/2021 8:51:42 AM Referred By: BENITEZ Confirmed By:DEYA MILLER MD
--- NOTE | 2021-02-03 15:10 | RAD_ITS ---
STUDY: X-RAY CHEST REASON FOR EXAM: Female, 45 years old. Chest pain TECHNIQUE: Single AP portable view of the chest. COMPARISON: Comparison is made with prior study 01/28/2020. FINDINGS: EKG electrodes are seen. The lungs are clear and expanded. There is no demonstrated pleural abnormality. Normal size heart. Normal mediastinum and allison. Normal visualized pulmonary arteries. Normal visualized aortic arch and descending thoracic aorta. Normal visualized thoracic spine. Normal visualized ribs, clavicles, and shoulders. There is no demonstrated abnormality of the visualized soft tissue structures of the upper abdomen. RAD/Chest 1 View (Portable) IMPRESSION: Normal x-ray examination of the chest. Electronically Signed: Dawood Strong MD at 15:49 EDT , Service support ,
--- NOTE | 2021-02-03 15:11 | EDS_ITS ---
HPI History of Present Illness Chief Complaint: Chest Pain Informant: patient Onset/Context/Timing Onset: Today Context: Sudden Onset Current Severity: Moderate Maximum Severity: Moderate Narrative Narrative: Patient presents secondary to left upper sharp chest pain that started 1/2-hour prior to arrival. She was not doing anything strenuous at the time. She does report pain with deep breath or with movement. Pain radiates to her back as well as down her left arm. She states she has had similar pain in the past and was told she had an irregular heartbeat at that time. She is not on any medication for this and has never been diagnosed with A. fib. [facility] Medical History Acute cholecystitis H/O corrected congenital abnormality of eye History of stress test RAFAEL on CPAP Sleep apnea Home Medications sucralfate 1 g PO 4X/DAY 08/13/16 [History Last Taken 12/11/20] fluticasone propionate 1 spray NASAL DAILY 04/17/19 [History Last Taken 12/09/20] naproxen 500 mg PO BID PRN 04/17/19 [History Last Taken 12/11/20] omeprazole 40 mg PO BID 01/28/20 [History Last Taken 12/11/20] triamterene-hydrochlorothiazid 1 tab PO DAILY 01/28/20 [History Last Taken 12/11/20] aspirin 81 mg tablet,delayed release 81 mg PO DAILY tab 03/17/20 [History Last Taken 12/10/20] acetaminophen [Tylenol] 650 mg PO Q4H PRN PRN #0 tab 12/12/20 [Rx Last Taken Unknown] hydrocodone-acetaminophen 1 tab PO Q6H PRN 3 Days #10 tab 02/03/21 [Rx Last Taken Unknown] prednisone 60 mg PO DAILY #15 tab 02/03/21 [Rx Last Taken Unknown] Allergy/AdvReac Type Severity Reaction Status Date / Time No Known Allergies Allergy Verified 02/03/21 14:06 Family History Father Leukemia CVA (cerebral vascular accident) Myocardial infarction Hypertension Mother Breast cancer CVA (cerebral vascular accident) Myocardial infarction Grandmother Arthritis Surgical History History of nasal surgery Status post laparoscopic cholecystectomy Social History household members: other details: daughter and mother housing: house Smoking Status: Never smoker alcohol intake: never what type of physical activity do you participate in: none do you feel safe at home: Yes ROS ROS ED Constitutional Constitutional ED: Denies chills or fever(s) Eyes Eyes: Denies change in vision ENT ENT ED: Denies sore throat Cardiovascular Cardiovascular: Reports chest pain Respiratory/Chest Respiratory/Chest: Reports other Details: Pain with deep breath but does not feel short of breath. ; Denies cough or dyspnea Gastrointestinal Gastrointestinal: Denies abdominal pain, diarrhea, nausea or vomiting Genitourinary Genitourinary ED: Denies dysuria Musculoskeletal Musculoskeletal: Reports myalgias; Denies back pain Integumentary Denies rash Neurologic Neurologic: Denies headache(s) or weakness Allergic/Immunologic Allergic/Immunologic ED: Denies urticaria EXAM Physical Exam Const Vital Signs: 02/03/21 14:02 02/03/21 14:07 02/03/21 15:15 Temperature 97.6 F L Temperature Source Temporal Pulse Rate 71 Respiratory Rate 18 Respiratory Effort Normal Blood Pressure 133/77 H Blood Pressure Mean 95 Pulse Ox 97 Oxygen Delivery Method Room Air Room Air 02/03/21 16:04 Temperature Temperature Source Pulse Rate 56 L Respiratory Rate 18 Respiratory Effort Blood Pressure Blood Pressure Mean Pulse Ox 96 Oxygen Delivery Method Room Air Positive well nourished and well developed General Appearance ED: well developed HEENT Reports normocephalic and head/scalp atraumatic Eyes PERRL and EOMs intact bilaterally Neck supple Chest Wall inspection of chest normal Chest Narrative: Reproducible tenderness to palpation of the left lateral upper chest wall. No crepitus. No overlying skin change. Resp normal respiratory effort and clear to auscultation bilaterally Cardio regular rate and regular rhythm GI normal to inspection, nondistended, normoactive bowel sounds Palpation: soft Back/Spine no CVA tenderness Extremity normal to inspection Neuro oriented x3 and no sensory deficits noted Sensorium / Orientation: alert Motor Exam: strength 5/5 throughout Psych mental status grossly normal Skin no rashes or lesions noted MDM MDM MDM Narrative Medical decision making narrative: EKG, chest x-ray, lab work obtained. Patient given morphine and Zofran for pain. Aspirin given. Lab Data Attestation: I reviewed the patient's lab results. Labs: Laboratory Results - last 24 hr 02/03/21 02/03/21 02/03/21 14:08 14:08 14:08 WBC 9.2 RBC 4.45 Hgb 12.2 Hct 39.0 MCV 87.6 MCH 27.4 MCHC 31.3 L RDW Std Deviation 45.9 H RDW Coeff of Rai 14.3 Plt Count 344 MPV 10.2 Immature Gran % (Auto) 0.300 Neut % (Auto) 70.6 H Lymph % (Auto) 22.4 [place] % (Auto) 5.6 Eos % (Auto) 0.8 Baso % (Auto) 0.3 Absolute Neuts (auto) 6.5 Absolute Lymphs (auto) 2.05 Nucleated RBC % 0 D-Dimer Quant (PE/DVT) 0.58 H* Sodium 136 Potassium 3.3 L Chloride 105 Carbon Dioxide 28.0 Anion Gap 3 L BUN 8 Creatinine 0.74 Estim Creat Clear Calc 94.81 Est GFR (MDRD) Af Amer 108 Est GFR (MDRD) Non-Af 89 BUN/Creatinine Ratio 10.8 Glucose 109 H Calcium 8.7 Troponin I High Sens 4 02/03/21 16:25 WBC RBC Hgb Hct MCV MCH MCHC RDW Std Deviation RDW Coeff of Rai Plt Count MPV Immature Gran % (Auto) Neut % (Auto) Lymph % (Auto) [place] % (Auto) Eos % (Auto) Baso % (Auto) Absolute Neuts (auto) Absolute Lymphs (auto) Nucleated RBC % D-Dimer Quant (PE/DVT) Sodium Potassium Chloride Carbon Dioxide Anion Gap BUN Creatinine Estim Creat Clear Calc Est GFR (MDRD) Af Amer Est GFR (MDRD) Non-Af BUN/Creatinine Ratio Glucose Calcium Troponin I High Sens 5 Radiography Chest X-Ray - ED: 1 View, Read by ED Physician, Normal, Heart, Lungs and Mediastinum Diagnostic Testing: Clinical Impression(s) from Imaging Studies Chest X-Ray 02/03/21 15:10 IMPRESSION: Normal x-ray examination of the chest. Electronically Signed: Dawood Strong MD at 15:49 EDT , Service support , Chest CTA 02/03/21 16:12 IMPRESSION: Negative CTA chest. Individualized dose optimization techniques were used for this CT. at 1657 Reported and signed by: Johnathan Bhatia MD Electronically Signed: Johnathan Bhatia MD at 16:56 EDT Tel , Service support , EKG Initial EKG: Attestation: I personally reviewed and interpreted this EKG as follows: Interpretation: Sinus Rhythm (Sinus at 75 with no acute ischemia.) Treatment and Re-Evaluation Comments:: Initial test results discussed with the patient. EKG is unremarkable. Portable chest x-ray per my interpretation is normal. Radiologist interpretation is reviewed. Lab work significant for mildly low potassium at 3.3. This is replaced orally. D-dimer slightly elevated at 0.58. Initial troponin negative and delta troponin ordered. This also returns negative. CTA chest is normal. Patient was given a small dose of Dilaudid for pain. With her having reproducible chest wall pain I do not feel she needs further testing tonight. We will treat her with analgesics as well as steroids to help with chest wall inflammation. Return instructions are provided. Discharge Plan Triage Chief Complaint: Chest Pain ED Provider: Rivka Reddy Dx/Rx/DC Orders Clinical Impression: Acute chest wall pain Instructions: ED Chest Pain, Uncertain Cause Prescriptions: New hydrocodone-acetaminophen 5-325 mg tablet 1 tab PO Q6H PRN (Reason: pain) 3 Days Qty: 10 RF: 0 prednisone 20 mg tablet 60 mg PO DAILY Qty: 15 RF: 0 No Action aspirin 81 mg tablet,delayed release (DR/EC) 81 mg PO DAILY RF: 0 sucralfate 1 GM tablet 1 g PO 4X/DAY RF: 0 naproxen 250 MG tablet 500 mg PO BID PRN (Reason: Pain) RF: 0 fluticasone propionate 9.9 ML spray,suspension 1 spray NASAL DAILY RF: 0 omeprazole 40 MG capsule,delayed release(DR/EC) 40 mg PO BID RF: 0 triamterene-hydrochlorothiazid 1 EACH tablet 1 tab PO DAILY RF: 0 acetaminophen [Tylenol] 325 mg Tablet 650 mg PO Q4H PRN PRN (Reason: P/F) Qty: 0 RF: 0 Stand Alone Forms: ED Work / School Excuse Primary Care Provider: Em Santos Referrals: Em Santos MD [Primary Care Provider] - 3-5 Days if not improving Disposition Disposition: Home, Self Care
[2021-02-03] MEDS: Aspirin 81 MG TAB.CHEW 324 MG PO (15:21)
[2021-02-03] MEDS: Morphine 4 MG/ML Syringe IV (15:22)
[2021-02-03] MEDS: Ondansetron 4 MG/2 ML Vial IV (15:22)
[2021-02-03 15:54] LABS: Anion Gap 3 (5-15); BUN 8 mg/dL (7-18); BUN/Creat Ratio 10.8 RATIO (10-20); Calcium,Total 8.7 mg/dL (8.5-10.1); Chloride 105 mmol/L (98-107); Creatinine, Serum 0.74 mg/dL (0.55-1.02); EST Glomerular Filtration Rate 89 mL/min (>60); Est Glom Filt Rate - Afr Amer 108 mL/min (>60); Estimated Creatinine Clearance 94.81 ml/min; Glucose 109 mg/dL (74-106); Potassium 3.3 mmol/L (3.5-5.1); Sodium Level 136 mmol/L (136-145); Troponin-I HS 4 pg/mL (3.0-54.0)
[2021-02-03 15:57] LABS: Absolute Lymphocyte Count 2.05 X10^3/uL (0.83-4.51); Absolute Neutrophil Count 6.5 X10^3/uL (2.0-7.7); Basophil# 0.03 X10^3/uL; Basophil% 0.3 % (0-1); Eosinophil# 0.07 X10^3/uL; Eosinophils% 0.8 % (0-5); Hemoglobin 12.2 g/dL (12.0-15.0); Lymphocyte # 2.05 X10^3/ul (0.83-4.51); Lymphocyte % 22.4 % (19-41); Mean Corp Hgb Conc 31.3 g/dL (32-36); Mean Corpuscular Hgb 27.4 pg (27.0-32.0); Mean Corpuscular Volume 87.6 fL (81-99); Mean Platelet Vol. 10.2 fl (6.2-12.0); Monocyte# 0.51 X10^3/uL; Monocyte% 5.6 % (0-10); NRBC Flagged by Analyzer 0 % (0-5); Neutrophil # 6.46 X10^3/uL (2.7-7.7); Neutrophil % 70.6 % (47-70); Platelet Count 344 K/mm3 (150-450); RBC Distribution Width CV 14.3 % (11.6-14.6); RBC Distribution Width SD 45.9 fl (35.1-43.9); Red Blood Count 4.45 M/mm3 (4.2-5.4); White Blood Count 9.2 K/mm3 (4.4-11.0)
[2021-02-03 16:04] VITALS: PULSE 56; RESP 18; O2SAT 96
[2021-02-03 16:08] LABS: D-Dimer Quantitative (DVT/PE) 0.58 FEU/ug/m (0.27-0.49)
--- NOTE | 2021-02-03 16:12 | CT_ITS ---
EXAM: CT ANGIOGRAPHY CHEST WITHOUT AND WITH INTRAVENOUS CONTRAST : 1975 CLINICAL INDICATION: chest pain TECHNIQUE: Helically acquired angiography images were obtained of the chest without and with intravenous contrast. This CT exam was performed using one or more of the following dose reduction techniques: automated exposure control, adjustment of the mA and/or kV according to patient size, and/or use of iterative reconstruction technique. This report was created using [employer] report generation technology. MIP reconstructed images were created and reviewed. CONTRAST: IV 100mL [id number]-370 COMPARISON: None. FINDINGS: PULMONARY ARTERIES: Unremarkable. Normal in caliber. No evidence of pulmonary embolism. AORTA: Unremarkable. Normal in caliber. No evidence of dissection. GREAT VESSELS OF AORTIC ARCH: Unremarkable. Normal in caliber. No evidence of dissection. LUNGS AND PLEURAL SPACES: Unremarkable. No mass. No consolidation or edema. No pleural effusion or thickening. No pneumothorax. HEART: Unremarkable. Heart size is normal. No pericardial effusion. No signs of right heart strain, ratio of right ventricle to left ventricle measures less than 1. MEDIASTINUM: Unremarkable. No mediastinal or hilar adenopathy. Esophagus is unremarkable. No hiatal hernia. THYROID: Unremarkable. No thyroid lesions. BONES/JOINTS: Unremarkable. No suspicious lytic or blastic abnormality. CT/CTA Chest W/WO Contrast IMPRESSION: Negative CTA chest. Individualized dose optimization techniques were used for this CT. at 4847 Reported and signed by: Johnathan Bhatia MD Electronically Signed: Johnathan Bhatia MD at 16:56 EDT Tel , Service support ,
[2021-02-03] MEDS: Potassium Chloride Oral Tablet 20 MEQ 40 MEQ PO (16:21)
[2021-02-03] MEDS: HYDROmorphone 0.5 MG/0.5 ML SYRINGE IV (16:23)
[2021-02-03 16:51] LABS: Troponin-I HS 5 pg/mL (3.0-54.0)
[2021-02-03 17:33] VITALS: BP 128/70; PULSE 70; RESP 16; O2SAT 100
== END 2021-02-03 17:35 | disposition home or self-care (01) ==
PROVIDERS: Emergency Provider Emergency Medicine; PCP Internal Medicine
DX: R07.89 Other chest pain (principal); E87.6 Hypokalemia; R79.89 Other specified abnormal findings of blood chemistry; G47.33 Obstructive sleep apnea (adult) (pediatric); Z87.19 Personal history of other diseases of the digestive system; Z90.49 Acquired absence of other specified parts of digestive tract
CPT/HCPCS: 71045; 71275; 80048; 84484; 85025; 85379; 93005; 96374; 96375; 99285; Q9967; A4216; J2405

== ENCOUNTER 2023-02-17 14:00 | Emergency (ER) | payer BC, SELFPAY ==
[2023-02-17 14:01] VITALS: BP 147/60; PULSE 97; RESP 18; TEMP 36.9; O2SAT 100; BMI 38.9
--- NOTE | 2023-02-17 16:42 | EKG12_ITS ---
Test Reason : SOB Blood Pressure : / mmHG Vent. Rate : 059 BPM Atrial Rate : 059 BPM P-R Int : 162 ms QRS Dur : 082 ms QT Int : 384 ms P-R-T Axes : 052 017 040 degrees QTc Int : 380 ms Sinus bradycardia Nonspecific T wave abnormality Abnormal ECG Confirmed by GERONIMO HARRIS, LISA ([id number]), editor greeting card TEA ALONSO ([id number]) on 02/23/2023 12:01:52 PM Referred By: Confirmed By:LISA MELTON MD
--- NOTE | 2023-02-17 16:42 | EDS_ITS ---
HPI History of Present Illness Chief Complaint: Cold Sx Informant: patient Onset/Context/Timing Onset: Weeks (1) Context: gradual Timing: Continuous Quality: Positive for - (Pressure in her chest) Worsened by: Nothing Relieved by: Nothing Associated Symptoms cough, sore throat, subjective and chills; Negative for rhinorrhea, post nasal drip, fever, sweats, clear sputum, white sputum, yellow sputum or green sputum Narrative Narrative: Patient presents with cough and congestion that has been getting worse over the past week. Patient states she has been also having some pressure in her chest over the last week. Patient states it is constant. Patient states it is gradually gotten worse. Patient states nothing makes it better and nothing makes it worse. Patient admits to some shortness of breath with it. Patient also admits to a cough but denies any sputum production. Patient denies any fevers but admits to some subjective chills. Patient denies any sinus pressure or rhinorrhea. PE Risk Factors: Negative for Cancer, OCP + Smoking + > 35, Prior DVT or PE, Recent immobilization, Recent surgery or Recent travel [facility] Medical History Acute cholecystitis H/O corrected congenital abnormality of eye History of stress test RAFAEL on CPAP Sleep apnea Home Medications sucralfate 1 gram tablet 1 g PO 4X/DAY ACID REFLUX 08/13/16 [History Last Taken 12/11/20] fluticasone propionate 50 mcg/actuation nasal spray,suspension 1 spray NASAL DAILY allergies 04/17/19 [History Last Taken 12/09/20] naproxen 250 mg tablet 500 mg PO BID PRN Pain 04/17/19 [History Last Taken 12/11/20] omeprazole 40 mg capsule,delayed release 40 mg PO BID gerd 01/28/20 [History Last Taken 12/11/20] triamterene 37.5 mg-hydrochlorothiazide 25 mg tablet 1 tab PO DAILY bp 01/28/20 [History Last Taken 12/11/20] aspirin 81 mg tablet,delayed release 81 mg PO DAILY heart health 03/17/20 [History Last Taken 12/10/20] acetaminophen 325 mg tablet (Tylenol) 650 mg (2 x 325 mg) PO Q4H PRN PRN P/F #0 tabs 12/12/20 [Rx Last Taken Unknown] hydrocodone-acetaminophen 5-325mg 5mg-325mg 1 tab PO Q6H PRN pain 3 days #10 tabs 02/03/21 [Rx Last Taken Unknown] prednisone 20 mg tablet 60 mg (3 x 20 mg) PO DAILY #15 tabs 02/03/21 [Rx Last Taken Unknown] albuterol sulfate 90 mcg/actuation aerosol inhaler (Ventolin HFA) 1 - 2 puff inhalation Q4H PRN PRN Wheezing ##1 02/17/23 [Rx Last Taken Unknown] Allergy/AdvReac Type Severity Reaction Status Date / Time No Known Allergies Allergy Verified 02/17/23 14:01 Family History Father Leukemia CVA (cerebral vascular accident) Myocardial infarction Hypertension Mother Breast cancer CVA (cerebral vascular accident) Myocardial infarction Grandmother Arthritis Surgical History History of nasal surgery Status post laparoscopic cholecystectomy Social History household members: other details: daughter and mother housing: house Smoking Status: Never smoker alcohol intake: never what type of physical activity do you participate in: none do you feel safe at home: Yes ROS ROS ED Constitutional Constitutional ED: Reports chills; Denies fever(s) Eyes Eyes: Denies blurry vision or change in vision ENT ENT ED: Reports sore throat; Denies rhinorrhea Cardiovascular Cardiovascular: Reports chest pain; Denies palpitations Respiratory/Chest Respiratory/Chest: Reports cough and dyspnea Gastrointestinal Gastrointestinal: Denies nausea or vomiting Genitourinary Genitourinary ED: Denies dysuria or hematuria Musculoskeletal Musculoskeletal: Denies back pain or neck pain Integumentary Denies abscess or rash Neurologic Neurologic: Denies headache(s) or weakness Allergic/Immunologic Allergic/Immunologic ED: Denies mouth swelling or urticaria EXAM Physical Exam Const Vital Signs: 02/17/23 14:01 02/17/23 15:33 Temperature 98.4 F Temperature Source Temporal Pulse Rate 97 Respiratory Rate 18 Respiratory Effort Normal Respiratory Pattern Normal Blood Pressure 147/60 H Blood Pressure Mean 89 Pulse Ox 100 Oxygen Delivery Method Room Air Positive well nourished, well developed and obese General Appearance ED: well developed and NAD Nutritional Appearance: obese HEENT Reports moist mucous membranes Neck supple and no JVD Resp normal respiratory effort Auscultation: wheezes expiratory wheezes and lower bilaterally Cardio regular rate and regular rhythm GI non-tender and non-distended Palpation: soft Neuro oriented x3, CN's II-XII intact bilaterally and no sensory deficits noted Anabella Coma Scale: document GCS findings Spontaneous Obeys Commands Oriented 15 Sensorium / Orientation: alert Motor Exam: strength 5/5 throughout Psych mental status grossly normal MDM MDM MDM Narrative Medical decision making narrative: Differential diagnosis includes cardiac dysrhythmia, cardiac ischemia, electrolyte abnormality, pneumonia, pneumothorax, COVID-19 infection, influenza infection, and reactive airway disease. Patient has a Wells score of 0. Therefore, I do not feel this is from a pulmonary embolism. History & Record Review Discussion w/independent historian: Patient Additional record(s) reviewed:: Prior labs Lab Data Lab results narrative: CBC was reviewed and was within normal limits. Basic metabolic profile was reviewed and was within normal limits. High-sensitivity troponin was reviewed and was normal at 4. Radiography Chest X-Ray - ED: 2 View, Read by ED Physician, Read by Radiologist and No Acute Disease Diagnostic Testing: PA and lateral chest x-ray was obtained. There are 2 views. On my independent interpretation, lung escalante are clear. There is normal cardiac silhouette. Bony thorax is normal. There is no acute process noted. Radiologist also interpreted the x-ray and agrees. EKG Initial EKG: Attestation: I personally reviewed and interpreted this EKG as follows: Interpretation: Sinus Rhythm (59) and Non-Specific ST Changes Comments: EKG was obtained. On my independent interpretation, it showed a normal sinus rhythm with a rate of 89. DC interval, QRS interval, and QTc intervals were all normal. [place] was normal. There are nonspecific ST-T wave changes. Prior EKG tracings: available for review Prior: Unchanged (02/03/2021) Treatment and Re-Evaluation :: Patient was advised of her findings. Patient was given a prescription for an albuterol inhaler. Patient was instructed to take [id number] cough medicines as needed. Patient was instructed to drink plenty of fluids. Patient was instructed to follow-up with her primary care physician in 5 to 7 days for reevaluation. Patient understood and was agreeable with the plan. All questions were answered. Discharge Plan Triage Chief Complaint: Cold Sx ED Provider: Benltey Hylton Dx/Rx/DC Orders Clinical Impression: Cough, Chest pain of uncertain etiology, Viral upper respiratory tract infection Instructions: ED URI, Viral, No Abx (Adult) Prescriptions: New albuterol sulfate [Ventolin HFA] 90 mcg/actuation HFA aerosol inhaler 1 - 2 puff inhalation Q4H PRN PRN (Reason: Wheezing) Qty: 1 0RF No Action aspirin 81 mg tablet,delayed release (DR/EC) 81 mg PO DAILY Patient Comments: take 1 tablet by mouth once daily sucralfate 1 GM tablet 1 g PO 4X/DAY Patient Comments: TAKE BEFORE EVERY MEAL naproxen 250 MG tablet 500 mg PO BID PRN (Reason: Pain) fluticasone propionate 9.9 ML spray,suspension 1 spray NASAL DAILY omeprazole 40 MG capsule,delayed release(DR/EC) 40 mg PO BID triamterene-hydrochlorothiazid 1 EACH tablet 1 tab PO DAILY acetaminophen [Tylenol] 325 mg Tablet 650 mg PO Q4H PRN PRN (Reason: P/F) Qty: 0 0RF hydrocodone-acetaminophen 5-325 mg tablet 1 tab PO Q6H PRN (Reason: pain) 3 Days Qty: 10 0RF prednisone 20 mg tablet 60 mg PO DAILY Qty: 15 0RF Primary Care Provider: Barbara Wise Referrals: Barbara Wsie MD [Primary Care Provider] - 5-7 Days Disposition Disposition: Home, Self Care
[2023-02-17 16:47] VITALS: PULSE 58; RESP 14
[2023-02-17] MEDS: Ipratropium/Albuterol Sulfate 3 ML AMPUL.NEB INHALATION (17:04)
[2023-02-17 17:06] LABS: Absolute Neutrophil Count 5.5 X10^3/uL (2.0-7.7); Basophil# 0.02 X10^3/uL; Basophil% 0.3 % (0-1); Eosinophil# 0.08 X10^3/uL; Hematocrit 38.9 % (37-47); Hemoglobin 11.7 g/dL (12.0-15.0); Lymphocyte % 23.2 % (19-41); Mean Corp Hgb Conc 30.1 g/dL (32-36); Mean Corpuscular Hgb 26.9 pg (27.0-32.0); Mean Corpuscular Volume 89.4 fL (81-99); Mean Platelet Vol. 9.6 fl (6.2-12.0); Monocyte# 0.39 X10^3/uL; NRBC Flagged by Analyzer 0 % (0-5); Neutrophil # 5.45 X10^3/uL (2.7-7.7); Neutrophil % 70.1 % (47-70); Platelet Count 292 K/mm3 (150-450); RBC Distribution Width CV 13.2 % (11.6-14.6); Red Blood Count 4.35 M/mm3 (4.2-5.4); White Blood Count 7.8 K/mm3 (4.4-11.0)
[2023-02-17 17:37] LABS: Anion Gap 2 (5-15); BUN 11 mg/dL (7-18); BUN/Creat Ratio 15.3 RATIO (10-20); Chloride 106 mmol/L (98-107); Creatinine, Serum 0.72 mg/dL (0.55-1.02); EST Glomerular Filtration Rate 91 mL/min (>60); Est Glom Filt Rate - Afr Amer 111 mL/min (>60); Estimated Creatinine Clearance 95.34 ml/min; Glucose 94 mg/dL (74-106); Potassium 3.6 mmol/L (3.5-5.1); Sodium Level 139 mmol/L (136-145); Troponin-I HS 4 pg/mL (3.0-54.0)
--- NOTE | 2023-02-17 17:45 | RAD_ITS ---
INDICATION: Cough EXAMINATION/TECHNIQUE: X-RAY - XR Chest 2 Views COMPARISON: 02/03/2021. FINDINGS: LINES/DEVICES: None. LUNGS: No consolidation, edema or effusion. No pneumothorax. MEDIASTINUM AND CARDIOVASCULAR STRUCTURES: Cardiac silhouette not enlarged. Central airways and mediastinal contour are unremarkable. BONES AND SOFT TISSUES: Unremarkable. RAD/Chest PA and Lateral IMPRESSION: No radiographic evidence of acute cardiopulmonary disease. Electronically Signed: Katrina Stoelo MD at 18:14 EST Reading Location ID and State: [id number] / Tel , Service support ,
== END 2023-02-17 19:32 | disposition home or self-care (01) ==
PROVIDERS: Emergency Provider Emergency Medicine; PCP Family Medicine; Visit Provider Emergency Medicine
DX: J06.9 Acute upper respiratory infection, unspecified (principal); R07.9 Chest pain, unspecified; R05.9 Cough, unspecified; Z90.49 Acquired absence of other specified parts of digestive tract
CPT/HCPCS: 71046; 80048; 84484; 85025; 87428; 93005; 94640; 99283; A4216

== ENCOUNTER 2023-05-23 18:29 | Emergency (ER) | payer BC, SELFPAY ==
[2023-05-23] VITALS (9 sets, daily range): BP systolic 117–161; BP diastolic 56–79; PULSE 76–97; RESP 12–18; TEMP 36.2–36.6; O2SAT 95–100; BMI 39.8
--- NOTE | 2023-05-23 19:32 | EKG12_ITS ---
Test Reason : CP Blood Pressure : / mmHG Vent. Rate : 083 BPM Atrial Rate : 083 BPM P-R Int : 144 ms QRS Dur : 086 ms QT Int : 386 ms P-R-T Axes : 058 018 043 degrees QTc Int : 453 ms Normal sinus rhythm Normal ECG Confirmed by GERONIMO HARRIS, LISA ([id number]), supervising editor trailer TEA ALONSO ([id number]) on 05/24/2023 9:46:05 AM Referred By: Confirmed By:LISA MELTON MD
--- NOTE | 2023-05-23 19:35 | RAD_ITS ---
INDICATION: chest pain EXAMINATION/TECHNIQUE: X-RAY - XR Chest 1 View COMPARISON: CR ChestNov 16 2022 FINDINGS: LINES/DEVICES: None. LUNGS: No consolidation, edema or effusion. No pneumothorax. MEDIASTINUM AND CARDIOVASCULAR STRUCTURES: Cardiac silhouette not enlarged. Central airways and mediastinal contour are unremarkable. BONES AND SOFT TISSUES: Unremarkable. RAD/Chest 1 View (Portable) IMPRESSION: No radiographic evidence of acute cardiopulmonary disease. Electronically Signed: Raissa Perez MD at 20:21 EST ,
[2023-05-23] MEDS: Nitroglycerin SL (ED/IMG/CATH) 0.4 MG TABLET 0.400000000000000022 MG SL ×3 (19:41→20:04)
[2023-05-23] MEDS: Aspirin 81 MG TAB.CHEW 324 MG PO (19:41)
[2023-05-23 19:42] LABS: Absolute Lymphocyte Count 2.13 X10^3/uL (0.83-4.51); Absolute Neutrophil Count 6.1 X10^3/uL (2.0-7.7); Basophil# 0.05 X10^3/uL; Basophil% 0.6 % (0-1); Eosinophil# 0.06 X10^3/uL; Eosinophils% 0.7 % (0-5); Hematocrit 38.4 % (37-47); Hemoglobin 11.7 g/dL (12.0-15.0); Lymphocyte # 2.13 X10^3/ul (0.83-4.51); Lymphocyte % 24.1 % (19-41); Mean Corp Hgb Conc 30.5 g/dL (32-36); Mean Corpuscular Hgb 27.5 pg (27.0-32.0); Mean Corpuscular Volume 90.1 fL (81-99); Monocyte# 0.46 X10^3/uL; Monocyte% 5.2 % (0-10); NRBC Flagged by Analyzer 0 % (0-5); Neutrophil # 6.11 X10^3/uL (2.7-7.7); Neutrophil % 68.9 % (47-70); Platelet Count 298 K/mm3 (150-450); RBC Distribution Width CV 13.8 % (11.6-14.6); RBC Distribution Width SD 45.2 fl (35.1-43.9); Red Blood Count 4.26 M/mm3 (4.2-5.4); White Blood Count 8.9 K/mm3 (4.4-11.0)
--- OUTSIDE RECORDS SUMMARY | 2023-05-23 19:43 | XMS RPT_ITS | CCD ---
Author Name Unknown Address [address] [place] [address] Organization [facility] Care Team Providers [employer] Manager Name Role Phone FADY, EMAD W Unavailable Unavailable FADY, EMAD W Unavailable Unavailable ROSEANNA GONZALEZ (PT) Unavailable Unavailable FADY, EMAD W Unavailable Unavailable FADY, EMAD W Unavailable Unavailable FADY, EMAD W Unavailable Unavailable FADY, EMAD W Unavailable Unavailable FADY, EMAD W Unavailable Unavailable FADY, EMAD W Unavailable Unavailable ROSEANNA GONZALEZ (PT) Unavailable Unavailable FADY, EMAD W Unavailable Unavailable FADY, EMAD W Unavailable Unavailable FADY, EMAD W Unavailable Unavailable FADY, EMAD W Unavailable Unavailable FADY, EMAD W Unavailable Unavailable FADY, EMAD W Unavailable Unavailable FADY, EMAD W Unavailable Unavailable ROSEANNA GONZALEZ (PT) Unavailable Unavailable FADY, EMAD W Unavailable Unavailable OZZY RAMIRO D Unavailable Unavailable None, No PCP Unavailable Unavailable Ramiro Santos Unavailable Unavailable Barbara Charles Unavailable Unavailab Barbara Nelson Unavailable Stella Mclaughlin Unavailable Unavailable Unavailable Primary Care Provider UnavailPEDRO LUIS Walton Attending Unavail able NO, PHYSICIAN Primary Care Unavailable Ramiro Santos MD Primary Care Provider Ramiro Santos MD Primary Care Provider Barbara Charles MD Primary Care Provider BARBARA CHARLES Primary Care Unavailab BARBARA Nelson Primary Care Unavailable Medications Current Medications Medication Drug Class(es) Dates Sig (Normalized) Sig (Original) betamethasone 0.5 mg/ml / clotrimazole 10 mg/ml topical cream (1 source) Azole Antifungal, Corticosteroid Start: 10-29-2022 End: 12-28-2022 clotrimazole-beta methasone (Lotrisone) cream Indications: Rash Apply 1 Application topically 2 times a day. 15 g 0 10/29/2022 12/28/2022 Active famotidine 20 mg oral tablet (1 source) Histamine-2 Receptor Antagonist Start: 09-26-2020 End: 09-30-2020 take 1 tablet by mouth twice daily Pepcid 20 mg oral tablet ; 1 tab(s) orally 2 times a day Quantity: 10 Refills: 0 Ordered: 26-Sep-2020 Barbara Perkins Start: 26-Sep-2020 End: 30-Sep-2020 Generic Substitution Allowed Comments: It is very important that you take or use this exactly as directed. Do not skip doses or discontinue unless directed by your doctor.Obtain medical advice before taking any non-prescription drugs as some may affect the action of this medication. Completed/Discontinued Medications Medication Drug Class(es) Dates Sig (Normalized) Sig (Original) acetaminophen 325 mg / HYDROcodone bitartrate 5 mg oral tablet (1 source) Opioid Agonist Start: 05-30-2021 End: 05-30-2021 hydroCODone-acetam inophen (NORCO) 5-325 MG per tablet 1 tablet Problems Active Problems Problem Classification Problem Date Documented Date Episodic/Chronic Adjustment disorders (4 sources) Adjustment disorder with mixed anxiety and depressed mood; Translations: [Adjustment disorder with mixed anxiety and depressed mood] Onset: 10-22-2014 10-22-2014 Chronic E Codes: Fall (1 source) Fall; Translations: [Unspecified fall, initial encounter] Episodic Esophageal disorders (4 sources) Gastroesophageal reflux disease; Translations: [Gastro-esophageal reflux disease without esophagitis] Onset: 10-29-2022 Chronic Other inflammatory condition of skin (1 source) Itching of skin; Translations: [Pruritus, unspecified] 10-29-2022 Episodic Other inflammatory condition of skin (2 sources) Pruritus, unspecified; Translations: [Pruritus, unspecified] Onset: 10-29-2022 Episodic Other nervous system disorders (3 sources) Other chronic pain; Translations: [Other chronic pain] Onset: 11-17-2016 Chronic Other nervous system disorders (1 source) Difficulty in walking, not elsewhere classified; Translations: [Difficulty in walking, not elsewhere classified] Onset: 06-22-2017 Chronic Other nervous system disorders (4 sources) Difficulty walking; Translations: [Difficulty in walking, not elsewhere classified] Onset: 06-22-2017 06-22-2017 Chronic Other non-traumatic joint disorders (1 source) Knee pain; Translations: [Pain in left knee] 10-29-2022 Episodic Other non-traumatic joint disorders (2 sources) Pain in left knee; Translations: [Pain in left knee] Onset: 10-29-2022 Episodic Other nutritional; endocrine; and metabolic disorders (4 sources) Body mass index 40+ - severely obese; Translations: [Morbid (severe) obesity due to excess calories] Onset: 10-22-2014 10-22-2014 Chronic Other screening for suspected conditions (not mental disorders or infectious disease) (4 sources) Encounter for screening mammogram for malignant neoplasm of breast; Translations: [Patient encounter status] Onset: 03-03-2018 Episodic Other skin disorders (1 source) Eruption; Translations: [Rash and other nonspecific skin eruption] 10-29-2022 Episodic Other skin disorders (2 sources) Rash and other nonspecific skin eruption; Translations: [Rash and other nonspecific skin eruption] Onset: 10-29-2022 Episodic Other upper respiratory disease (5 sources) Chronic rhinitis; Translations: [Chronic rhinitis] Onset: 02-18-2005 07-29-2005 Chronic Other upper respiratory disease (1 source) Allergic rhinitis; Translations: [Allergic rhinitis, unspecified] 10-29-2022 Chronic Other upper respiratory disease (2 sources) Allergic rhinitis, unspecified; Translations: [Allergic rhinitis, unspecified] Onset: 10-29-2022 Chronic Residual codes; unclassified (4 sources) Obstructive sleep apnea syndrome; Translations: [Obstructive sleep apnea (adult) (pediatric)] Onset: 10-22-2014 10-22-2014 Chronic Residual codes; unclassified (1 source) Peripheral edema; Translations: [Edema, unspecified] 10-29-2022 Episodic Residual codes; unclassified (2 sources) Edema, unspecified; Translations: [Edema, unspecified] Onset: 10-29-2022 Episodic Spondylosis; intervertebral disc disorders; other back problems (5 sources) Other intervertebral disc displacement, lumbosacral region; Translations: [Herniation of nucleus pulposus] Onset: 07-25-2017 07-25-2017 Chronic Spondylosis; intervertebral disc disorders; other back problems (20 sources) Sacrococcygeal disorders, not elsewhere classified; Translations: [Radiculopathy, lumbar region] Onset: 11-12-2016 11-12-2016 Episodic Unclassified (2 sources) ITCHING ALL OVER 09-26-2020 Past or Other Problems Problem Classification Problem Date Documented Date Episodic/Chronic Allergic reactions (6 sources) Contact dermatitis; Translations: [Contact dermatitis and other eczema, unspecified cause] Onset: 11-23-2004 09-26-2020 Episodic Conditions associated with dizziness or vertigo (4 sources) Peripheral vertigo; Translations: [Other peripheral vertigo, bilateral] Onset: 03-10-2020 03-10-2020 Episodic Headache; including migraine (4 sources) Headache; Translations: [Headache] Onset: 11-23-2004 11-23-2004 Episodic Other diseases of kidney and ureters (4 sources) Hydronephrosis; Translations: [Unspecified hydronephrosis] Onset: 02-03-2015 02-03-2015 Episodic Other nervous system disorders (4 sources) Abnormal gait; Translations: [Unspecified abnormalities of gait and mobility] Onset: 07-25-2017 07-25-2017 Episodic Other non-traumatic joint disorders (1 source) Stiffness of unspecified hip, not elsewhere classified; Translations: [Stiffness of unspecified hip, not elsewhere classified] Onset: 06-22-2017 Episodic Other non-traumatic joint disorders (4 sources) Joint pain; Translations: [Pain in joint, other specified sites] Onset: 12-23-2004 12-23-2004 Episodic Other non-traumatic joint disorders (4 sources) Hip stiff; Translations: [Stiffness of unspecified hip, not elsewhere classified] Onset: 06-22-2017 06-22-2017 Episodic Other upper respiratory disease (4 sources) Deviated nasal septum; Translations: [Deviated nasal septum] Onset: 02-18-2005 02-18-2005 Episodic Other upper respiratory disease (3 sources) Bleeding from nose; Translations: [Epistaxis] Onset: 03-10-2020 03-10-2020 Episodic Other upper respiratory disease (1 source) Epistaxis; Translations: [Epistaxis] Onset: 03-10-2020 03-10-2020 Episodic Residual codes; unclassified (5 sources) Bilateral lower limb edema; Translations: [Localized edema] Onset: 01-08-2015 01-08-2015 Episodic NEGATED: Highlighted row has not occurred!Residual codes; unclassified (5 sources) Disease Episodic Results Test Name Value Interpretation Reference Range Facil ity Vital Signs Date Time Vital Sign Value Performing Clinician Facility 10-29-2022 13:35-0400 Body height 168.5 cm Barbara Charles MD Work Phone: [facility] 10-29-2022 13:35-0400 Body mass index (BMI) [Ratio] 41.3 kg/m2 Barbara Charles MD Work Phone: [facility] 10-29-2022 13:35-0400 Body weight 117.3 kg Barbara Charles MD Work Phone: [facility] 10-29-2022 13:35-0400 Diastolic blood pressure 86 mm[Hg] Barbara Charles MD Work Phone: [facility] 10-29-2022 13:35-0400 Heart rate 70 /min Barbara Charles MD Work Phone: [facility] 10-29-2022 13:35-0400 SaO2% (BldA) [Mass fraction] 98 % Barbara Charles MD Work Phone: [facility] 10-29-2022 13:35-0400 Systolic blood pressure 134 mm[Hg] Barbara Charles MD Work Phone: [facility] 05-30-2021 18:42-0500 Body height 170.2 cm [facility] 05-30-2021 18:41-0500 Body temperature 98.29 [degF] [facility] 05-30-2021 18:41-0500 Diastolic blood pressure 70 mm[Hg] [facility] 05-30-2021 18:41-0500 Heart rate 85 /min [facility] 05-30-2021 18:41-0500 Respiratory rate 18 /min [facility] 05-30-2021 18:41-0500 SaO2% (BldA) [Mass fraction] 100 % [facility] 05-30-2021 18:41-0500 Systolic blood pressure 134 mm[Hg] [facility] 09-26-2020 02:13-0400 Body height 170.1 cm Barbara Charles Other Phone: [facility] 09-26-2020 02:13-0400 Body temperature 97.88 [degF] Barbara Charles Other Phone: [facility] 09-26-2020 02:13-0400 Body weight 111 kg Barbara Charles Other Phone: [facility] 09-26-2020 02:13-0400 Diastolic blood pressure 74 mm[Hg] Barbara Charles Other Phone: [facility] 09-26-2020 02:13-0400 Heart rate 78 /min Barbara Charles Other Phone: [facility] 09-26-2020 02:13-0400 Respiratory rate 16 /min Barbara Charles Other Phone: [facility] 09-26-2020 02:13-0400 SaO2% (BldA) [Mass fraction] 98 % Barbara Charles Other Phone: [facility] 09-26-2020 02:13-0400 Systolic blood pressure 127 mm[Hg] Barbara Charles Other Phone: [facility] Encounters Encounter Date Encounter Type Care Provider Facility Start: 03-29-2023 End: 03-29-2023 Emergency department patient visit BARBARA CHARLES [facility] Start: 10-29-2022 End: 10-30-2022 ambulatory BARBARA CHARLES [facility] Start: 10-29-2022 End: 10-29-2022 Office outpatient new 30 minutes Barbara Charles MD Work Phone: [facility] Procedures Date Procedure Procedure Detail Performing Clinician Start: 10-29-2022 CBC W Auto Different ial panel - Blood BARBARA CHARLES Start: 10-29-2022 Comprehensive metabo lic 2000 panel - Serum or Plasma BARBARA CHARLES Start: 10-29-2022 Cyanocobalamin vitamin b-12 BARBARA CHARLES Start: 10-29-2022 Lipid panel BARBARA CHARLES Start: 10-29-2022 THYROXINE, FREE TERRELL CHARLES Start: 10-29-2022 TSH WITH REFLEX TO F REE T4 IF ABNORMAL BARBARA CHARLES Start: 05-30-2021 End: 05-30-2021 Ct cervical spine w/o contrast material Joelle Cary DIAL REFINISHER-GRINDER Work Phone: Start: 05-30-2021 Ct head/brain w/o co ntrast material Joelle Cary DIAL REFINISHER-GRINDER Work Phone: Start: 05-30-2021 Radex forearm 2 views A tee Cary DIAL REFINISHER-GRINDER Work Phone: Start: 06-12-2019 Adult depression scr eening assessment Ladan Older DIAL REFINISHER.GRINDER Work Phone: Start: 03-03-2018 Mammography Ladan Older DIAL REFINISHER.GRINDER Work Phone: Start: 05-16-2015 Colonoscopy Ladan Older DIAL REFINISHER.GRINDER Work Phone: Plan of Treatment Date Care Activity Detail Author Start: 01-24-2029 DTaP/Tdap/Td Vaccines (3 - Td or Tdap) DTaP/Tdap/Td Vaccines (3 - Td or Tdap) [facility] Start: 10-21-2024 LIPID SCREEN LIPID SCREEN [facility] Start: 09-05-2023 Urine microalbumin profile DTAP,TDAP,TD (2 - Td or Tdap) [facility] Start: 07-16-2023 Zoster Vaccines (1 of 2) Zoster Vaccines (1 of 2) [facility] Start: 12-03-2022 Influenza vaccination [facility] Start: 11-19-2022 End: 11-19-2022 Patient encounter procedure 11/19/2022 8:40 AM EDT Office Visit [facility] [address] [place] [address] Barbara Charles MD [address] [place] [facility] Medical [place] [facility] [place] [address] [facility] Medical [facility] Start: 10-29-2022 End: 10-29-2022 ambulatory 10/29/2022 2:20 PM EDT Lab [facility] [address] [place] [address] Rash; Pruritus; Allergic rhinitis, unspecified seasonality, unspecified trigger; Gastroesophageal reflux disease, unspecified whether esophagitis present; Peripheral edema; Chronic pain of left knee [facility] Immunizations Immunization Date Immunization Notes Care Provider Fa cility 05-27-2021 hepatitis B vaccine, adult dosage Ladan Older DIAL REFINISHER.GRINDER Work Phone: [facility] Work Phone: 05-27-2021 hepatitis B vaccine, unspecified formulation Ramiro Santos MD Work Phone: [facility] 03-31-2021 COVID-19 vaccine, ag e 12+ yr (PFIZER-BIONTECH - PURPLE TOP) Ladan Older DIAL REFINISHER.GRINDER Work Phone: [facility] Work Phone: 02-01-2021 influenza, seasonal, injectable Ladan Older DIAL REFINISHER.GRINDER Work Phone: [facility] Work Phone: 02-01-2021 Seasonal, quadrivalent, recombinant, injectable influenza vaccine, preservative free Barbara Charles MD Work Phone: [facility] Work Phone: 02-01-2021 influenza virus vaccine, unspecified formulation Barbara Charles MD Work Phone: [facility] Work Phone: 09-16-2020 COVID-19 vaccine, ag e 12+ yr (PFIZER-BIONTECH - PURPLE TOP) Ladan Older DIAL REFINISHER.GRINDER Work Phone: [facility] Work Phone: 08-26-2020 COVID-19 vaccine, ag e 12+ yr (PFIZER-BIONTECH - PURPLE TOP) Ladan Older DIAL REFINISHER.GRINDER Work Phone: [facility] Work Phone: 06-17-2020 hepatitis B vaccine, adult dosage Ladan Older DIAL REFINISHER.GRINDER Work Phone: [facility] Work Phone: 05-19-2020 hepatitis B vaccine, adult dosage Barbara Charles MD Work Phone: [facility] Work Phone: 12-06-2019 Seasonal, quadrivalent, recombinant, injectable influenza vaccine, preservative free Barbara Charles MD Work Phone: [facility] Work Phone: 01-24-2019 influenza, injectabl e, quadrivalent, preservative free Barbara Charles MD Work Phone: [facility] Work Phone: 01-24-2019 tetanus toxoid, reduced diphtheria toxoid, and acellular pertussis vaccine, adsorbed Barbara Charles MD Work Phone: [facility] Work Phone: 01-08-2015 influenza, injectabl e, quadrivalent, contains preservative Ladan Older DIAL REFINISHER.GRINDER Work Phone: [facility] 01-08-2015 influenza, seasonal, injectable Barbara Charles MD Work Phone: [facility] Work Phone: 09-04-2013 tetanus toxoid, reduced diphtheria toxoid, and acellular pertussis vaccine, adsorbed Ladan Older DIAL REFINISHER.GRINDER Work Phone: [facility] Payers Date Payer Category Payer Unknown 2022 Unknown [id number] 2022 Medicaid [employer] [id number] 2022-Present [phone] [address] [place] [address] Medicaid [id number] 2018 Unknown [id number] 2018 Medicaid [id number] 1973 Unknown [id number] 1975 Unknown [id number] 1975 Unknown [id number] Social History Date Type Detail Facility Assertion Unknown if ever smoked [facility] Work Phone: Tobacco smoking consumption unknown [facility] Start: 05-30-2021 End: 10-29-2022 Tobacco smoking status NHIS Never smoked tobacco [employer] Start: 05-30-2021 End: 10-29-2022 Tobacco use and exposure Smokeless tobacco non-user [facility] Start: 05-30-2021 Alcohol intake Lifetime non-d jenn (finding) [facility] Start: 10-22-2019 End: 05-30-2021 History SDOH Alcohol Frequency 1 [facility] Start: 1975 Sex Assigned At Not on file A [facility] Start: 05-20-2021 End: 10-29-2022 Exposure to SARS-CoV-2 (event) [facility] Start: 03-20-2020 Alcohol intake Current non-dr road test examiner of alcohol (finding) [facility] Start: 06-12-2019 End: 10-22-2019 History SDOH Alcohol Frequency 3 [facility] Start: 06-12-2019 End: 10-22-2019 History SDOH Alcohol Binge 2 [facility] Start: 06-12-2019 History SDOH Social Connections Living 6 [facility] Start: 10-22-2019 History SDOH Physica l Activity DPW 5 [facility] Start: 06-12-2019 History SDOH Physica l Activity MPS 0 [facility] Start: 10-22-2019 Education 16 [facility] Start: 1975 Sex Assigned At Female [facility] Work Phone: Start: 10-29-2022 Alcohol intake Ex-drinker (finding) [facility] Work Phone: Gender identity Not on file [facility] Work Phone: Functional Status Date Assessment Result Facility NEGATED: Highlighted row Functional performance Functional status health issues are not documented Disease YX-Eyeit[facility]kgt-Sejsve d [employer] Work Phone: Mental Status Date Assessment Result Facility NEGATED: Highlighted row Cognitive function [Interpretation] Cognitive status health issues are not documented Disease EY-Fhsfualdri-Uuqdsf d [address] [employer] Work Phone: Clinical Notes 12-18-2004 to 10-29-2022 Sonya Gimenez MA - 10/29/2022 1:20 PM EDTBarbara Charles MD - 10/29/2022 1:20 PM EDTPatient InstructionsTelephone Encounter - Charlene Mason APRN.CNS - 07/28/2021 4:32 PM EDT Note Date & Type Note Facility 10-29-2022 History of Presen t illness Narrative Subjective Patient ID: Maricarmen Carter is a 47 y.o. female who presents for Patient has a itch and went to and it was put on prednisone. It still hasn't helped even thought she has not hives/rash she is still itching. Also on left foot it is peeling no itching HPI Review of Systems Objective There were no vitals taken for this visit. Physical Exam Assessment/Plan Subjective Maricarmen Carter is a 47 y.o. female who presents for No chief complaint on file.. Here to get established. She is having issues with itching. She went to urgent care and was started on prednisone and that is not helping, she has also been taking benadryl without relief. Started Sun night - got worse Tuesday. She had not had any rash other than a little bit on the bottom of her foot. No one around her/in her household has been itching. She has h/o GERD, chronic left knee pain, swelling, allergies. Colonoscopy 2016 - repeat 10 years. Objective Visit Vitals BP 134/86 (BP Location: Left arm, Patient Position: Sitting, BP Cuff Size: Adult) Pulse 70 Physical Exam Vitals reviewed. Constitutional: General: She is not in acute distress. Cardiovascular: Rate and Rhythm: Normal rate and regular rhythm. Heart sounds: Normal heart sounds. No murmur heard. Pulmonary: Effort: Pulmonary effort is normal. No respiratory distress. Breath sounds: Normal breath sounds. Skin: General: Skin is warm and dry. Neurological: General: No focal deficit present. Mental Status: She is alert. Mental status is at baseline. Assessment/Plan Problem List Items Addressed This Visit None Visit Diagnoses Rash - Primary Relevant Medications clotrimazole-betamethasone (Lotrisone) cream Other Relevant Orders CBC and Auto Differential Comprehensive Metabolic Panel Lipid Panel TSH with reflex to Free T4 if abnormal Vitamin B12 Follow Up In Primary Care - Established Pruritus Relevant Medications hydrOXYzine HCL (Atarax) 25 mg tablet permethrin (Elimite) 5 % cream Other Relevant Orders CBC and Auto Differential Comprehensive Metabolic Panel Lipid Panel TSH with reflex to Free T4 if abnormal Vitamin B12 Follow Up In Primary Care - Established Allergic rhinitis, unspecified seasonality, unspecified trigger Relevant Medications fluticasone (Flonase) 50 mcg/actuation nasal spray Other Relevant Orders CBC and Auto Differential Comprehensive Metabolic Panel Lipid Panel TSH with reflex to Free T4 if abnormal Vitamin B12 Follow Up In Primary Care - Established Gastroesophageal reflux disease, unspecified whether esophagitis present Relevant Medications omeprazole (PriLOSEC) [address] capsule sucralfate (Carafate) 1 gram tablet Other Relevant Orders CBC and Auto Differential Comprehensive Metabolic Panel Lipid Panel TSH with reflex to Free T4 if abnormal Vitamin B12 Follow Up In Primary Care - Established Peripheral edema Relevant Medications triamterene-hydrochlorothiazid (Maxzide-25) 37.5-25 mg tablet Other Relevant Orders CBC and Auto Differential Comprehensive Metabolic Panel Lipid Panel TSH with reflex to Free T4 if abnormal Vitamin B12 Follow Up In Primary Care - Established Chronic pain of left knee Relevant Medications naproxen (Naprosyn) 500 mg tablet Other Relevant Orders CBC and Auto Differential Comprehensive Metabolic Panel Lipid Panel TSH with reflex to Free T4 if abnormal Vitamin B12 Follow Up In Primary Care - Established Visit for screening mammogram Relevant Orders BI mammo bilateral screening tomosynthesis Follow Up In Primary Care - Established Barbara Charles MD documented in this encounter [facility] Work Phone: 10-29-2022 Instructions Barbara Charles MD - 10/29/2022 1:20 PM EDT We discussed the possibility of scabies - the likelihood seems low but will treat for that just in case, will also add hydroxyzine for the itching. Get labs. Follow up in 2 weeks, sooner if needed. documented in this encounter [facility] Work Phone: 09-08-2022 Note Patient Outreach (IN [facility]) MARICARMEN PARRA ([id number]) 1975 F Date Time Provider Department 09/08/22 RAMIRO SANTOS During your visit today, we recorded the following information about you: Allergies As of Date: 09/08/2022 (No Known Allergies) Date Reviewed: 03/20/2020 Reviewed by: Scarlett Torres - Fully Assessed Visit Diagnosis:Encounter for screening mammogram for breast cancer [Z12.31] Order(s):BIANCA SCREENING W TATE [[id number]] Order #: [id number] FUTURE Prescriptions as of 09/13/2022 - triamterene-hydroCHLOROthiazid e (MAXZIDE-25) 37.5-25 mg per tablet Take 1 tablet by mouth once daily. - omeprazole (PRILOSEC) 40 mg capsule Take 1 capsule by mouth once daily. May substitute two 20 mg pills if 40 mg not covered(dispense #360, of 20 mg pills if this is the case) - aspirin, enteric coated (ASPIRIN, ENTERIC COATED) 81 mg EC tablet Take 1 tablet by mouth once daily. - sucralfate (CARAFATE) 1 gram tablet Take 1 tablet by mouth before meals and at bedtime. - fluticasone (FLONASE) 50 mcg/actuation nasal spray Use 2 Sprays in each nostril once daily. - naproxen (NAPROSYN) 500 mg tablet Take 1 tablet by mouth once daily as needed (pain/inflammation, take with food.). - COMPOUNDED PRESCRIPTION KNEE HIGH COMPRESSION STOCKINGS 30-40 MM. DX: (R60.9) Edema; (I87.8) Venous stasis; (R60.0) Bilateral leg edema - CPAP Please do mask refitting for skin irritation from nasal pillows and leaking. Consider FFM when eligible for new mask. - CPAP Change Auto PAP to 5-13 cm of water with humidification. Mask (per patient preference) optional chin strap (if indicated) , filters, tubing, humidifier and lifetime supplies. - COMPOUNDED PRESCRIPTION Compression knee-highs for LE edema. Problem List As Of Date 09/08/2022 Noted Resolved Other dyspnea and respiratory abnormality [R06.*11/23/2004 01/06/2016 HEADACHE [R51] 11/23/2004 ALLERGY, UNSPECIFIED [T78.40XA] 11/23/2004 OBESITY NOS [E66.9] 12/18/2004 12/18/2004 Bilateral Knee Pain [M25.59] 12/23/2004 DEVIATED NASAL SEPTUM [J34.2] 02/18/2005 CHRONIC RHINITIS [J31.0] 02/18/2005 RAFAEL (obstructive sleep apnea) [G47.33] 10/22/2014 Adjustment disorder with mixed anxiety and depr*10/22/2014 Morbid obesity with BMI of 40.0-44.9, adult (HC*10/22/2014 Bilateral leg edema [R60.0] 01/08/2015 Hydronephrosis, left [N13.30] 02/03/2015 Chronic midline low back pain [M54.50, G89.29] 11/12/2016 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 *11/17/2016 Chronic midline back pain [M54.9, G89.29] 11/17/2016 Difficulty walking [R26.2] 06/22/2017 Hip stiffness, unspecified laterality [M25.659] 06/22/2017 Coccydynia [M53.3] 07/25/2017 Herniated nucleus pulposus, L5-S1, left [M51.27]07/25/2017 Radiculopathy, lumbar region [M54.16] 07/25/2017 Gait disturbance [R26.9] 07/25/2017 Mechanical low back pain [M54.59] 07/25/2017 Vertigo, peripheral, bilateral [H81.393] 03/10/2020 Epistaxis, recurrent [R04.0] 03/10/2020 Encounter Status:Closed by LINDA ROBLERO on 09/13/22 [facility] 09-30-2021 Note Patient Outreach (IN [facility]) MARICARMEN PARRA ([id number]) 1975 F Date Time Provider Department 09/30/21 RAMIRO SANTOS During your visit today, we recorded the following information about you: Allergies As of Date: 09/30/2021 (No Known Allergies) Date Reviewed: 03/20/2020 Reviewed by: Scarlett Torres - Fully Assessed Visit Diagnosis:Encounter for screening mammogram for breast cancer [Z12.31] Order(s):BIANCA YBARRA [[id number]] Order #: [id number] FUTURE Prescriptions as of 10/05/2021 - triamterene-hydroCHLOROthiazid e (MAXZIDE-25) 37.5-25 mg per tablet Take 1 tablet by mouth once daily. - omeprazole (PRILOSEC) 40 mg capsule Take 1 capsule by mouth once daily. May substitute two 20 mg pills if 40 mg not covered(dispense #360, of 20 mg pills if this is the case) - aspirin, enteric coated (ASPIRIN, ENTERIC COATED) 81 mg EC tablet Take 1 tablet by mouth once daily. - sucralfate (CARAFATE) 1 gram tablet Take 1 tablet by mouth before meals and at bedtime. - fluticasone (FLONASE) 50 mcg/actuation nasal spray Use 2 Sprays in each nostril once daily. - naproxen (NAPROSYN) 500 mg tablet Take 1 tablet by mouth once daily as needed (pain/inflammation, take with food.). - COMPOUNDED PRESCRIPTION KNEE HIGH COMPRESSION STOCKINGS 30-40 MM. DX: (R60.9) Edema; (I87.8) Venous stasis; (R60.0) Bilateral leg edema - CPAP Please do mask refitting for skin irritation from nasal pillows and leaking. Consider FFM when eligible for new mask. - CPAP Change Auto PAP to 5-13 cm of water with humidification. Mask (per patient preference) optional chin strap (if indicated) , filters, tubing, humidifier and lifetime supplies. - COMPOUNDED PRESCRIPTION Compression knee-highs for LE edema. Problem List As Of Date 09/30/2021 Noted Resolved Other dyspnea and respiratory abnormality [R06.*11/23/2004 01/06/2016 HEADACHE [R51] 11/23/2004 ALLERGY, UNSPECIFIED [T78.40XA] 11/23/2004 OBESITY NOS [E66.9] 12/18/2004 12/18/2004 Bilateral Knee Pain [M25.59] 12/23/2004 DEVIATED NASAL SEPTUM [J34.2] 02/18/2005 CHRONIC RHINITIS [J31.0] 02/18/2005 RAFAEL (obstructive sleep apnea) [G47.33] 10/22/2014 Adjustment disorder with mixed anxiety and depr*10/22/2014 Morbid obesity with BMI of 40.0-44.9, adult (HC*10/22/2014 Bilateral leg edema [R60.0] 01/08/2015 Hydronephrosis, left [N13.30] 02/03/2015 Chronic midline low back pain [M54.50, G89.29] 11/12/2016 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 *11/17/2016 Chronic midline back pain [M54.9, G89.29] 11/17/2016 Difficulty walking [R26.2] 06/22/2017 Hip stiffness, unspecified laterality [M25.659] 06/22/2017 Coccydynia [M53.3] 07/25/2017 Herniated nucleus pulposus, L5-S1, left [M51.27]07/25/2017 Radiculopathy, lumbar region [M54.16] 07/25/2017 Gait disturbance [R26.9] 07/25/2017 Mechanical low back pain [M54.59] 07/25/2017 Vertigo, peripheral, bilateral [H81.393] 03/10/2020 Epistaxis, recurrent [R04.0] 03/10/2020 Encounter Status:Closed by EPIC, PRODUSER on 10/05/21 [facility] 07-28-2021 Miscellaneous Notes please schedule an appt with PCP. Can schedule with me if willing. Patient has been identified by name and date of : Yes Patient phones for refill(s): Pending Prescriptions Disp Refills TRIAMTERENE 37.5 MG-HYDROCHLOROTHIAZIDE 25 MG TABLET 90 tablet 0 Sig: Take 1 tablet by mouth once daily. CATRACHITO: No OMEPRAZOLE 40 MG CAPSULE,DELAYED RELEASE 90 capsule 0 Sig: Take 1 capsule by mouth once daily. May substitute two 20 mg pills if 40 mg not covered(dispense #360, of 20 mg pills if this is the case) CATRACHITO: No ASPIRIN 81 MG TABLET,DELAYED RELEASE 90 tablet 0 Sig: Take 1 tablet by mouth once daily. CATRACHITO: No SUCRALFATE 1 GRAM TABLET 224 tablet 0 Sig: Take 1 tablet by mouth before meals and at bedtime. CATRACHITO: No FLUTICASONE PROPIONATE 50 MCG/ACTUATION NASAL SPRAY,SUSPENSION 64 g 0 Sig: Use 2 Sprays in each nostril once daily. CATRACHITO: No Date of last office visit in primary care: 06/13/2019 Last 2 Encounter Wt Readings: Date: Wt: 03/10/2020 115.9 kg (255 lb 9.6 oz) 10/22/2019 114.3 kg (252 lb) Previous labs/tests for medication: Blood Pressure: BUN (mg/dL) Date Value 10/22/2019 12 Sodium (mmol/L) Date Value 10/22/2019 138 Last 1 Encounter BP Readings: Date: BP: 03/10/2020 124/57 Please advise. Thank you. Val Love LPN Images from the original note were not included. I have been scheduled to see dr Santos but it keeps getting cancelled or rescheduled. I also need do schedule a mammogram and have an annual checkup done. I have been taking the meds but with me moving they were I. My storage and I just finished them. I do need some to get back on track. Maricarmen Joyner Maricarmen, are still taking the prescriptions you requested. All were last written 02/10/2021 for 90 days, you should have been out of medications in May. Also, our records indicate that you were last seen 10/22/2019 with no future appointment. Can we get you scheduled for a medication follow-up? Val Love LPN documented in this encounter [facility] 07-28-2021 Miscellaneous Notes Patient has been identified by name and date of : Yes Patient phones for refill(s): Pending Prescriptions Disp Refills NAPROXEN 500 MG TABLET 90 tablet 0 Sig: Take 1 tablet by mouth once daily as needed (pain/inflammation, take with food.). CATRACHITO: No Date of last office visit in primary care: 10/22/2019 No future appt scheduled. Last 2 Encounter Wt Readings: Date: Wt: 03/10/2020 115.9 kg (255 lb 9.6 oz) 10/22/2019 114.3 kg (252 lb) Previous labs/tests for medication: Not applicable Please advise. Thank you. Val Love LPN documented in this encounter [facility] 05-30-2021 Emergency department Note Patient discharged per MD order, to exit by self, gait steady, safety maintained Emergency Department Report [facility] EMERGENCY [facility]PART[facility] Service Date:.05/30/21 PCP: No primary care provider on file. Chief Complaint: Chief Complaint Patient presents with Back Pain Headache Fall HPI Maricarmen Parra is a 45 y.o. female presents to the ED today due to fall. 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 She was going down the stairs when she grabbed the hand railing. However she fell hitting the back of her head her neck her low back and her right elbow. She has a small abrasion to the knuckles on her right hand. She did not lose consciousness. However complains of pain to all those areas. Review of Systems: Review of Systems Constitutional: Negative. Respiratory: Negative. Cardiovascular: Negative. Musculoskeletal: Head pain, neck pain, lumbar spine pain, right forearm/elbow pain Skin: Abrasion to the knuckles on the right hand Past Medical History: Past Medical History: Diagnosis Date Abscess of nose (septum) Past Surgical History: Past Surgical History: Procedure Laterality Date CHOLECYSTECTOMY Allergies: No Known Allergies Medications: Patient's Medications New Prescriptions No medications on file Previous Medications ASPIRIN 81 MG CHEW TAB CHEWABLE TABLET Chew 81 mg daily. FLUTICASONE 50 MCG/ACT SUSPENSION NASAL SPRAY 2 sprays by Nasal route daily. NAPROXEN 500 MG TABLET Take 500 mg by mouth 2 times daily with meals. OMEPRAZOLE PO Take by mouth. SUCRALFATE (CARAFATE PO) Take by mouth. Modified Medications No medications on file Discontinued Medications No medications on file Family History: History reviewed. No pertinent family history. Social History: Social History Socioeconomic History Marital status: Single Spouse name: Not on file Number of children: Not on file Years of education: Not on file Highest education level: Not on file Occupational History Not on file Tobacco Use Smoking status: Never Smoker Smokeless tobacco: Never Used Substance and Sexual Activity Alcohol use: Never Drug use: Never Sexual activity: Not on file Other Topics Concern Not on file Social History Narrative Not on file Social Determinants of Health Financial Resource Strain: Not on file Food Insecurity: Not on file Transportation Needs: Not on file Physical Activity: Not on file Stress: Not on file Social Connections: Not on file Intimate Partner Violence: Not on file Housing Stability: Not on file Physical Exam: Physical Exam Vitals and nursing note reviewed. Constitutional: Appearance: Normal appearance. HENT: Head: Normocephalic. Nose: Nose normal. Mouth/Throat: Mouth: Mucous membranes are moist. Pharynx: Oropharynx is clear. Eyes: Extraocular Movements: Extraocular movements intact. Conjunctiva/sclera: Conjunctivae normal. Pupils: Pupils are equal, round, and reactive to light. Cardiovascular: Rate and Rhythm: Normal rate and regular rhythm. Pulses: Normal pulses. Heart sounds: Normal heart sounds. Pulmonary: Effort: Pulmonary effort is normal. No respiratory distress. Breath sounds: No wheezing. Musculoskeletal: General: No deformity. Normal range of motion. Cervical back: Normal range of motion and neck supple. No signs of trauma or rigidity. Normal range of motion. Thoracic back: Normal. Lumbar back: Spasms present. No tenderness. Normal range of motion. Skin: General: Skin is warm and dry. Capillary Refill: Capillary refill takes less than 2 seconds. Neurological: Mental Status: She is alert and oriented to person, place, and time. Psychiatric: Mood and Affect: Mood normal. Behavior: Behavior normal. Vital Signs During ED Visit Patient Vitals for the past 24 hrs: BP Temp Temp src Pulse Resp SpO2 Height 05/30/21 1842 1.702 m (5' 7 ) 05/30/21 1841 134/70 98.3 F (36.8 C) Oral 85 18 100 % Orders/Results: Orders Placed This Encounter CT HEAD WITHOUT CONTRAST CT SPINE CERVICAL WITHOUT CONTRAST CT SPINE LUMBAR WITHOUT CONTRAST XR FOREARM RIGHT naproxen 500 MG tablet Sucralfate (CARAFATE PO) OMEPRAZOLE PO fluticasone 50 MCG/ACT Suspension nasal spray aspirin 81 MG Chew Tab chewable tablet hydroCODone-acetaminophen (NORCO) 5-325 MG per tablet 1 tablet ondansetron (ZOFRAN-ODT) disintegrating tablet 4 mg No results found for this or any previous visit. Radiographic Imaging XR FOREARM RIGHT Final Result IMPRESSION: Normal x-rays CT HEAD WITHOUT CONTRAST (Results Pending) CT SPINE CERVICAL WITHOUT CONTRAST (Results Pending) CT SPINE LUMBAR WITHOUT CONTRAST (Results Pending) Procedures: Procedures ED Summary/MDM 45-year-old female presents with a nontoxic appearance and stable vital signs. She is afebrile. She answers questions appropriately with clear speech. She is alert and oriented 4. CT of the head cervical spine and lumbar spine were obtained without acute findings of concern. Film of the right forearm also without acute findings of concern. I discussed this with the patient. I did advise her she would likely be very stiff and sore due to the fall. Recommended the use of nonsteroidal anti-inflammatories as needed follow-up with PCP if symptoms do not improve or become worse Clinical Impression: 1. Fall, initial encounter No follow-ups on file. New Prescriptions No medications on file Discontinued Medications No medications on file An After Visit Summary was printed and given to the patient with above information. The patient was seen independently by this provider, however the attending was available for consult during the entire visit. An after visit summary was printed and given to the patient with the above information. Portions of this chart were created using [employer] electronic dictation. Please excuse any typographical or grammatical errors contained herein. . Joelle Cary APRN-JERRICA 05/30/[id number] Associated attestation - Sergio Magana MD - 05/30/2021 11:09 PM EST The Mid-level provider independently saw this patient. I was available for consult. Room 11 c/o head, neck and back, tailbone pain after slipping on ice and sliding on back down 5 steps. c-collar applied documented in this encounter [facility] documented as of this encounter (statuses as of 07/28/2021) [facility] History of Past illness Narrative* Problem Noted Date Resolved Date Obesity, unspecified 12/18/2004 12/18/2004 Other dyspnea and respiratory abnormality 200401/06/2016 documented as of this encounter (statuses as of 07/28/2021) [facility] History of Past illness Narrative* Problem Noted Date Resolved Date Obesity, unspecified 12/18/2004 12/18/2004 Other dyspnea and respiratory abnormality 200401/06/2016 documented as of this encounter (statuses as of 10/05/2021) [facility] History of Past illness Narrative* Problem Noted Date Resolved Date Obesity, unspecified 12/18/2004 12/18/2004 Other dyspnea and respiratory abnormality 200401/06/2016 documented as of this encounter (statuses as of 09/13/2022) [facility] note* Diagnosis Fall, initial encounter- [facility] Bilateral leg edema Edema Chronic rhinitis Gastroesophageal reflux disease Esophageal reflux [facility]* Diagnosis Encounter for screening mammogram for breast cancer [facility] [place] [facility]* Diagnosis Encounter for screening mammogram for breast cancer [facility] [place] [facility]* Diagnosis Rash- Primary Rash and other nonspecific skin eruption Pruritus Unspecified pruritic disorder Allergic rhinitis, unspecified seasonality, unspecified trigger Gastroesophageal reflux disease, unspecified whether esophagitis present Peripheral edema Edema Chronic pain of left knee Visit for screening mammogram Rash Rash and other nonspecific skin eruption Pruritus Unspecified pruritic disorder Allergic rhinitis, unspecified seasonality, unspecified trigger Gastroesophageal reflux disease, unspecified whether esophagitis present Peripheral edema Edema Chronic pain of left knee documented in this encounter [facility] Work Phone: Hospital Discharge instructions* Attachments The following attachments cannot be sent through Care Everywhere. * Falls Are You at Risk? ([facility]) (Turkish) [facility] Diagnostic Procedure Only (Routine) - Pending Review Specialty Diagnoses / Procedures Referred By Nick nguyen Referred To Contact [facility] Diagnoses Encounter for screening mammogram for breast cancer Procedures BIANCA SCREENING W TATE SCREENING DIGITAL BREAST TOMOSYNTHESIS BI SCREENING MAMMOGRAPHY BI 2-VIEW BREAST INC Ramiro Strickland MD [address] [place] [address] [facility] [address] [place] [address] Referral ID Status Reason Start Date Expiration Date Visits Requested Visits Authorized [id number] Pending Review Auto-Generat ed Referral 09/30/2021 10/30/2022 1 1 [facility] for referral (narrative)* Diagnostic Procedure Only (Routine) - Pending Review Specialty Diagnoses / Procedures Referred By Nick nguyen Referred To Contact [facility] Diagnoses Encounter for screening mammogram for breast cancer Procedures BIANCA SCREENING W TATE SCREENING DIGITAL BREAST TOMOSYNTHESIS BI SCREENING MAMMOGRAPHY BI 2-VIEW BREAST INC Ramiro Strickland MD [address] [place] [address] [facility] [address] [place] [address] Referral ID Status Reason Start Date Expiration Date Visits Requested Visits Authorized [id number] Pending Review Auto-Generat ed Referral 09/08/2022 10/08/2023 1 1 [facility] for referral (narrative)* Consultation (Routine) - Authorized Specialty Diagnoses / Procedures Referred By Nick nguyen Referred To Contact Primary Care Diagnoses Rash Pruritus Allergic rhinitis, unspecified seasonality, unspecified trigger Gastroesophageal reflux disease, unspecified whether esophagitis present Peripheral edema Chronic pain of left knee Visit for screening mammogram Procedures Follow Up In Primary Care - Established Barbara Charles MD [address] [facility] [place] [address] Referral ID Status Reason Start Date Expiration Date V isits Requested Visits Authorized [id number] Authorized 10/29/2022 04/27/2023 1 1 * Imaging (Routine) - Authorized Specialty Diagnoses / Procedures Referred By Nick nguyen Referred To Contact Radiology Diagnoses Visit for screening mammogram Procedures BI mammo bilateral screening tomosynthesis Barbara Charles MD [address] [facility] [place] [address] Referral ID Status Reason Start Date Expiration Date Visits Requested Visits Authorized [id number] Authorized Perform Procedure 10/29/2022 04/27/2023 1 1 [facility] Work Phone: Summary Purpose Family History No Family History Records FoundNo Family History Records FoundNo Family History Records FoundNo Family History Records FoundNo Family History Records FoundNo Family History Records FoundNo Family History Records FoundNo Family History Records FoundNo Family History Records FoundNo Family History Records Found Advance Directives No Advanced Directives Records FoundDocuments on File Type Date Recorded 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 Advance Directive(s) 02/03/2015 3:52 PM Documents on File Type Date Recorded 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 Advance Directive(s) 02/03/2015 3:52 PM Additional Source Comments INFORMATION SOURCE (unrecogn ized section and content) DATE CREATED AUTHOR AUTHOR'S ORGANIZ ATION 03/14/2018 [facility] DATE CREATED AUTHOR AUTHOR'S ORGANIZ ATION 12/20/2018 [facility] DATE CREATED AUTHOR AUTHOR'S ORGANIZ ATION 12/21/2018 [facility] DATE CREATED AUTHOR AUTHOR'S ORGANIZ ATION 01/04/2019 [facility] DATE CREATED AUTHOR AUTHOR'S ORGANIZ ATION 09/29/2020 [facility] DATE CREATED AUTHOR AUTHOR'S ORGANIZ ATION 07/28/2021 [facility] DATE CREATED AUTHOR AUTHOR'S ORGANIZ ATION 09/15/2022 [facility] DATE CREATED AUTHOR AUTHOR'S ORGANIZ ATION 11/02/2022 [facility] DATE CREATED AUTHOR AUTHOR'S ORGANIZ ATION 04/02/2023 [facility] <item> Privacy Markings (unrecogniz ed section and content) Section Author: Imani Santos PROHIBITION ON REDISCLOSURE OF CONFIDENTIAL INFORMATION This notice accompanies a disclosure of information concerning a client made to you with the consent of such client. Reason for Visit (unrecogniz ed section and content) Reason Onset Date Comments Refill Request 07/28/2021 Scheduled Active and Recently Administ ered Medications (unrecognized section and content) Source Comments (unrecognize d section and content) In the event this informatio n is protected by the Federal Confidentiality of Alcohol and Drug Abuse Patient Records regulations: The Federal rules restrict any use of the information to criminally investigate or prosecute any alcohol or drug abuse patient.[facility] the event this information is protected by the Federal Confidentiality of Alcohol and Drug Abuse Patient Records regulations: The Federal rules restrict any use of the information to criminally investigate or prosecute any alcohol or drug abuse patient.[facility] the event this information is protected by the Federal Confidentiality of Alcohol and Drug Abuse Patient Records regulations: The Federal rules restrict any use of the information to criminally investigate or prosecute any alcohol or drug abuse patient.[facility] the event this information is protected by the Federal Confidentiality of Alcohol and Drug Abuse Patient Records regulations: The Federal rules restrict any use of the information to criminally investigate or prosecute any alcohol or drug abuse patient.[facility] Care Teams (unrecognized sec tion and content) [employer] Manager Relationship Specialty Start Date End Date Ramiro Santos MD [address] [place] [address] PCP - General 10/27/05 [employer] Manager Relationship Specialty Start Date End Date Ramiro Santos MD [address] [place], [place] [id number] PCP - General 10/27/05 [employer] Manager Relationship Specialty Start Date End Date Ramiro Santos MD [address] [place], [place] [address] PCP - General 10/27/05 [employer] Manager Relationship Specialty Start Date End Date Barbara Charles MD [address] [place] [address] [place] [address] PCP - General 01/13/19 FOR RECORDS PERTAINING TO PATIENTS WHO ARE OR HAVE BEEN ENROLLED IN A CHEMICAL DEPENDENCY/SUBSTANCEABUSE PROGRAM, SOME INFORMATION MAY BE OMITTED. This clinical summary was aggregated from multiple sources. Caution should be exercised in using it in the provision of clinical care. This summary normalizes information from multiple sources, and as a consequence, information in this document may materially change the coding, format and clinical context of patient data. In addition, data may be omitted in some cases. CLINICAL DECISIONS SHOULD BE BASED ON THE PRIMARY CLINICAL RECORDS. [facility] [employer] [facility]. provides no warranty or guarantee of the accuracy or completeness of information in this document.
[2023-05-23 20:00] LABS: Anion Gap 4 (5-15); BUN 9 mg/dL (7-18); BUN/Creat Ratio 9.3 RATIO (10-20); Calcium,Total 9.2 mg/dL (8.5-10.1); Chloride 106 mmol/L (98-107); Creatinine, Serum 0.96 mg/dL (0.55-1.02); EST Glomerular Filtration Rate 65 mL/min (>60); Est Glom Filt Rate - Afr Amer 79 mL/min (>60); Estimated Creatinine Clearance 92.95 ml/min; Glucose 88 mg/dL (74-106); Potassium 3.2 mmol/L (3.5-5.1); Sodium Level 139 mmol/L (136-145); Troponin-I HS (w/2H Reflex) 3 pg/mL (3.0-54.0)
--- NOTE | 2023-05-23 20:08 | EDS_ITS ---
HPI History of Present Illness Chief Complaint: Chest Pain Detail of Chief Complaint: Chest tightness and tingling left upper extremity started 1 hour prior to p Informant: patient Onset/Context/Timing Onset: Hours Activity at onset: sudden and light activity Timing: Continuous Quality: Positive for Pressure and Tightness Location: Substernal Current Severity: Mild Maximum Severity: Severe Worsened By: Nothing Relieved By: Nothing Associated Symptoms: Positive for Nausea, Diaphoresis and Dyspnea; Negative for Vomiting, Cough, Fever, Lightheadedness, Acid Reflux or Palpitations Narrative Narrative: Patient is a 47-year-old woman who is a non-smoker. She has no history of diabetes, hypercholesterolemia. She does have history of hypertension. She is a non-smoker. 1 family had SD at early age. Patient is still experiencing pain and tingling in her left upper extremity. She denies fever, chills night sweats. She denies headache, visual, ocular auditory symptoms. She denies upper respiratory tract infectious symptoms. She denies leg pain, swelling discoloration. She denies history of VTE or risk factors for VTE. She denies intolerance to greasy or fried foods. She is status post cholecystectomy. She does have history of reflux. She states has never had pain like this with her reflux. Prior Similar Symptoms: No Recent Illness/Hospitalization: No CVD Risk Factors: Positive for Hypertension and Family History 1' </=55; Negative for Diabetes, Hypercholesterolemia or Smoking PE Risk Factors: Negative for Recent Travel/Surgery, Recent Immobilization, Prior DVT or PE, Cancer or OCP + Smoking + >/=35 TAD Risk Factors: Positive for Hypertension; Negative for Marfan's Syndrome or Family History [facility] Medical History Acute cholecystitis H/O corrected congenital abnormality of eye History of stress test RAFAEL on CPAP Sleep apnea Home Medications sucralfate 1 gram tablet 1 g PO 4X/DAY ACID REFLUX 08/13/16 [History Last Taken 12/11/20] fluticasone propionate 50 mcg/actuation nasal spray,suspension 1 spray NASAL DAILY allergies 04/17/19 [History Last Taken 12/09/20] naproxen 250 mg tablet 500 mg PO BID PRN Pain 04/17/19 [History Last Taken 12/11/20] omeprazole 40 mg capsule,delayed release 40 mg PO BID gerd 01/28/20 [History Last Taken 12/11/20] triamterene 37.5 mg-hydrochlorothiazide 25 mg tablet 1 tab PO DAILY bp 01/28/20 [History Last Taken 12/11/20] aspirin 81 mg tablet,delayed release 81 mg PO DAILY heart health 03/17/20 [History Last Taken 12/10/20] acetaminophen 325 mg tablet (Tylenol) 650 mg (2 x 325 mg) PO Q4H PRN PRN P/F #0 tabs 12/12/20 [Rx Last Taken Unknown] albuterol sulfate 90 mcg/actuation aerosol inhaler (Ventolin HFA) 1 - 2 puff inhalation Q4H PRN PRN Wheezing ##1 02/17/23 [Rx Last Taken Unknown] Allergy/AdvReac Type Severity Reaction Status Date / Time No Known Allergies Allergy Verified 05/23/23 18:29 Family History Father Leukemia CVA (cerebral vascular accident) Myocardial infarction Hypertension Mother Breast cancer CVA (cerebral vascular accident) Myocardial infarction Grandmother Arthritis Surgical History History of nasal surgery Status post laparoscopic cholecystectomy Social History household members: other details: daughter and mother housing: house Smoking Status: Never smoker alcohol intake: never what type of physical activity do you participate in: none do you feel safe at home: Yes ROS ROS ED Constitutional Constitutional ED: Denies chills, fever(s), subjective, sweats or weight loss Eyes Eyes: Reports none ENT ENT ED: Denies rhinorrhea or sore throat Cardiovascular Cardiovascular: Reports as per HPI; Denies orthopnea or paroxysmal nocturnal dyspnea Respiratory/Chest Respiratory/Chest: Reports dyspnea; Denies cough, dyspnea on exertion, orthopnea or paroxysmal nocturnal dyspnea Gastrointestinal Gastrointestinal: Denies abdominal pain, nausea or vomiting Genitourinary Genitourinary ED: Denies dysuria, hematuria or urinary frequency Musculoskeletal Musculoskeletal: Denies arthralgias, back pain or myalgias Integumentary Denies rash Neurologic Neurologic: Denies headache(s) Psychiatric Psychiatric: Reports anxiety; Denies depression Endocrine Endocrinology: Denies cold intolerance, heat intolerance, polydipsia or polyuria Hematologic/Lymphatic Hematologic/Lymphatic: Denies easy bleeding or easy bruising EXAM Physical Exam Const Vital Signs: 05/23/23 18:30 05/23/23 18:36 05/23/23 19:35 Temperature 97.1 F L Temperature Source Temporal Pulse Rate 97 Respiratory Rate 18 Respiratory Effort Normal Respiratory Pattern Normal Blood Pressure 161/56 H Blood Pressure Mean 91 Pulse Ox 100 Oxygen Delivery Method Room Air Room Air 05/23/23 19:35 05/23/23 19:41 05/23/23 19:51 Temperature Temperature Source Pulse Rate 85 81 90 Respiratory Rate 12 Respiratory Effort Respiratory Pattern Blood Pressure 119/76 119/76 130/61 H Blood Pressure Mean 90 Pulse Ox 97 Oxygen Delivery Method Room Air 05/23/23 20:04 05/23/23 20:58 05/23/23 22:13 Temperature Temperature Source Pulse Rate 84 76 80 Respiratory Rate 18 12 Respiratory Effort Respiratory Pattern Blood Pressure 120/57 L 130/63 H 129/79 H Blood Pressure Mean 85 95 Pulse Ox 99 99 Oxygen Delivery Method Room Air Room Air 05/23/23 21:00 Temperature Temperature Source Pulse Rate Respiratory Rate 14 Respiratory Effort Respiratory Pattern Blood Pressure 117/56 L Blood Pressure Mean 76 Pulse Ox 95 Oxygen Delivery Method Room Air Positive well nourished and obese General Appearance ED: NAD; Negative for pallor Nutritional Appearance: obese HEENT Reports moist mucous membranes normocephalic and atraumatic Eyes PERRL and EOMs intact bilaterally General Eye ED: Negative for pale conjunctiva or scleral icterus Neck no lymphadenopathy, supple and no JVD Chest Wall inspection of chest normal and palpation of chest normal Resp normal respiratory effort and clear to auscultation bilaterally Cardio regular rate, regular rhythm, S1 normal heart sound, S2 normal heart sound and no murmurs Peripheral Pulses: pulses 2+ throughout GI normal to inspection, nondistended, normoactive bowel sounds, soft to palpation, non-tender, non-distended and no masses; Negative for hepatosplenomegaly Back/Spine no CVA tenderness Extremity normal to inspection General Extremety ED: Yes edema; Negative for pulses abnormal or tenderness General Extremity: edema; Negative for pulses abnormal Neuro oriented x3, CN's II-XII intact bilaterally, no sensory deficits noted and gait normal Sensorium / Orientation: awake and alert Psych mental status grossly normal Skin no rashes or lesions noted and no wounds General Skin Exam: Negative for jaundice or pallor MDM MDM MDM Narrative Medical decision making narrative: Torrential diagnosis cardiac versus noncardiac pain. Noncardiac pain would include reflux, peptic ulcer disease, biliary disease, pulmonary disease. EKG, appropriate blood work and chest x-ray obtained. Lab Data Attestation: I reviewed the patient's lab results. Lab results narrative: CBC is unremarkable. Basic metabolic panel is normal. First troponin is 3. Second troponin is 4. Delta is 1. This rules out cardiac etiology. Labs: Laboratory Results - last 24 hr 05/23/23 05/23/23 18:47 21:00 WBC 8.9 RBC 4.26 Hgb 11.7 L Hct 38.4 MCV 90.1 MCH 27.5 MCHC 30.5 L RDW Std Deviation 45.2 H RDW Coeff of Rai 13.8 Plt Count 298 MPV 10.0 Immature Gran % (Auto) 0.500 Neut % (Auto) 68.9 Lymph % (Auto) 24.1 [place] % (Auto) 5.2 Eos % (Auto) 0.7 Baso % (Auto) 0.6 Absolute Neuts (auto) 6.1 Absolute Lymphs (auto) 2.13 Nucleated RBC % 0 Sodium 139 Potassium 3.2 L Chloride 106 Carbon Dioxide 29.0 Anion Gap 4 L BUN 9 Creatinine 0.96 Estim Creat Clear Calc 92.95 Est GFR (MDRD) Af Amer 79 Est GFR (MDRD) Non-Af 65 BUN/Creatinine Ratio 9.3 L Glucose 88 Calcium 9.2 Troponin I High Sens 3 4 Radiography Chest X-Ray - ED: Read by ED Physician (Single view portable chest x-ray completely reviewed interpreted by me at 2008. It is normal. Cardiac silhouette size normal. Lung parenchyma normal. Perihilar region normal. Osseous structures are normal.) Diagnostic Testing: Clinical Impression(s) from Imaging Studies Chest X-Ray 05/23/23 19:35 IMPRESSION: No radiographic evidence of acute cardiopulmonary disease. Electronically Signed: Raissa Perez MD at 20:21 EST , Treatment and Re-Evaluation :: Because this is not like her reflux describes a tight pressure sensation in she received aspirin and nitroglycerin. Patient reported no improvement with nitroglycerin. Since she has a history of GERD and the first troponin was 3 GI cocktail was ordered. Awaiting 2-hour troponin. Patient had to be awakened from sleep. When asked if her pain was better she paused and stated yes. She would not state that it resolved. Patient was informed based on her EKG workup this is not her heart. I informed her that things it is not. I cannot say with any degree of certainty what it is but my suspicions are that this is related to her reflux. She did report improvement after GI cocktail. Discharge Plan Triage Chief Complaint: Chest Pain ED Provider: Rigo Henley Dx/Rx/DC Orders Clinical Impression: Chest tightness, Obesity (BMI 30-39.9), HTN (hypertension), Obstructive sleep apnea, History of gastroesophageal reflux (GERD) Instructions: ED Chest Pain, Noncardiac, ED GERD (Adult) Prescriptions: No Action aspirin 81 mg tablet,delayed release (DR/EC) 81 mg PO DAILY Patient Comments: take 1 tablet by mouth once daily sucralfate 1 GM tablet 1 g PO 4X/DAY Patient Comments: TAKE BEFORE EVERY MEAL naproxen 250 MG tablet 500 mg PO BID PRN (Reason: Pain) fluticasone propionate 9.9 ML spray,suspension 1 spray NASAL DAILY omeprazole 40 MG capsule,delayed release(DR/EC) 40 mg PO BID triamterene-hydrochlorothiazid 1 EACH tablet 1 tab PO DAILY acetaminophen [Tylenol] 325 mg Tablet 650 mg PO Q4H PRN PRN (Reason: P/F) Qty: 0 0RF albuterol sulfate [Ventolin HFA] 90 mcg/actuation HFA aerosol inhaler 1 - 2 puff inhalation Q4H PRN PRN (Reason: Wheezing) Qty: 1 0RF Primary Care Provider: Barbara Wise Referrals: Barbara Wise MD [Primary Care Provider] - 3-5 Days Disposition Disposition: Home, Self Care
[2023-05-23] MEDS: Mag Hydrox/Al Hydrox/Simeth 30 ML UDC PO (20:57)
[2023-05-23 21:39] LABS: Reflex Troponin-HS? (from REC) Y
[2023-05-23 22:06] LABS: Troponin-I HS 4 pg/mL (3.0-54.0)
== END 2023-05-23 22:43 | disposition home or self-care (01) ==
PROVIDERS: Emergency Provider Emergency Medicine; PCP Family Medicine; Visit Provider Emergency Medicine
DX: R07.89 Other chest pain (principal); G47.33 Obstructive sleep apnea (adult) (pediatric); E66.9 Obesity, unspecified; I10 Essential (primary) hypertension; Z90.49 Acquired absence of other specified parts of digestive tract; K21.9 Gastro-esophageal reflux disease without esophagitis; Z99.89 Dependence on other enabling machines and devices; Z79.899 Other long term (current) drug therapy; Z79.82 Long term (current) use of aspirin; Z68.30 Body mass index [BMI] 30.0-30.9, adult
CPT/HCPCS: 71045; 80048; 84484; 85025; 93005; 99285

== ENCOUNTER 2025-02-14 13:16 | Emergency (ER) | payer BC, SELFPAY ==
[2025-02-14] VITALS (7 sets, daily range): BP systolic 125–158; BP diastolic 63–86; PULSE 58–79; RESP 16–18; TEMP 36.3; O2SAT 98–100; BMI 41.5
--- NOTE | 2025-02-14 13:59 | EX.ED.DYSGE1 ---
HPI History of Present Illness Chief Complaint: General Illness Informant: patient Onset/Context/Timing Onset: Today Context: Sudden Onset Timing: Continuous Quality: Heaviness Location: Chest Worsened by: Nothing Relieved by: Nothing Narrative Narrative: Patient presents with chest pain, dizziness, and headache that began today. Patient states it began rather suddenly. Patient states she has sharp pain over her occiput and heaviness in her chest. Patient states nothing makes it better nothing makes it worse. Patient states her dizziness feels like she is leaning to the right. Patient denies any hearing changes or tinnitus. Patient admits to some nausea but denies any vomiting. Patient denies any shortness of breath or cough. Patient denies any palpitations. [facility] Medical History History of stress test RAFAEL on CPAP Sleep apnea Acute cholecystitis H/O corrected congenital abnormality of eye Home Medications Medication Instructions Recorded Last Taken Type sucralfate 1 gram tablet 1 g PO 4X/DAY ACID REFLUX 08/13/16 02/14/25 History fluticasone propionate 50 1 spray NASAL DAILY allergies 04/17/19 02/13/25 History mcg/actuation nasal spray,suspension naproxen 250 mg tablet 500 mg PO BID PRN Pain 04/17/19 02/13/25 History omeprazole 40 mg capsule,delayed 40 mg PO BID gerd 01/28/20 02/13/25 History release triamterene 37.5 1 tab PO DAILY bp 01/28/20 02/13/25 History mg-hydrochlorothiazide 25 mg tablet aspirin 81 mg tablet,delayed 81 mg PO DAILY heart health 03/17/20 12/10/20 History release meclizine 25 mg tablet 25 mg PO 4X/DAY PRN PRN Dizziness 02/14/25 Unknown Rx #20 tabs Allergy/AdvReac Type Severity Reaction Status Date / Time No Known Allergies Allergy Verified 02/14/25 13:20 Family History Father Leukemia CVA (cerebral vascular accident) Myocardial infarction Hypertension Mother Breast cancer CVA (cerebral vascular accident) Myocardial infarction Grandmother Arthritis Surgical History Status post laparoscopic cholecystectomy History of nasal surgery Social History household members: other details: daughter and mother housing: house Smoking Status: Never smoker alcohol intake: never what type of physical activity do you participate in: none do you feel safe at home: Yes ROS ROS ED Constitutional Constitutional ED: Denies chills or fever(s) Eyes Eyes: Denies blurry vision or change in vision ENT ENT ED: Denies rhinorrhea or sore throat Cardiovascular Cardiovascular: Reports chest pain; Denies palpitations Respiratory/Chest Respiratory/Chest: Denies cough or dyspnea Gastrointestinal Gastrointestinal: Reports nausea; Denies vomiting Genitourinary Genitourinary ED: Denies dysuria or hematuria Musculoskeletal Musculoskeletal: Denies back pain or neck pain Integumentary Denies abscess or rash Neurologic Neurologic: Reports headache(s); Denies weakness Allergic/Immunologic Allergic/Immunologic ED: Denies mouth swelling or urticaria EXAM Physical Exam Const Vital Signs: 02/14/25 13:20 02/14/25 13:30 Temperature 97.3 F L Temperature Source Temporal Pulse Rate 79 Respiratory Rate 18 Respiratory Effort Normal Non-Labored Respiratory Pattern Normal Blood Pressure 147/72 H Blood Pressure Mean 97 Pulse Ox 100 Oxygen Delivery Method Room Air Positive well nourished and well developed General Appearance ED: well developed and NAD HEENT Reports moist mucous membranes Eyes PERRL and EOMs intact bilaterally Eyes Narrative: There is some nystagmus with right lateral gaze. Neck supple and no JVD Resp normal respiratory effort and clear to auscultation bilaterally Cardio regular rate and regular rhythm GI non-tender and non-distended Palpation: soft Neuro oriented x3, CN's II-XII intact bilaterally and no sensory deficits noted Sensorium / Orientation: alert Motor Exam: strength 5/5 throughout Psych mental status grossly normal MDM MDM MDM Narrative Medical decision making narrative: Differential diagnose includes intracranial bleeding, stroke, vertigo, other cardiac dysrhythmia, cardiac ischemia, viral illness, pneumonia, bronchitis, electrolyte abnormality, dehydration, and anxiety. CBC will be obtained to assess for leukocytosis and anemia. Basic metabolic profile will be obtained to assess for electrolyte abnormality and renal function. High-sensitivity troponin will be obtained to assess for cardiac ischemia. 2-hour repeat high-sensitivity troponin will be obtained to assess for ongoing cardiac ischemia. PT with INR and PTT will be obtained to assess for coagulopathy. EKG will be obtained to assess for cardiac dysrhythmia and cardiac ischemia. CT scan of the brain will be obtained to assess for intracranial bleeding and stroke. Chest x-ray will be obtained to assess for pneumonia and bronchitis. COVID-19, influenza, and RSV PCR will be obtained to assess for viral illness. History & Record Review Additional record(s) reviewed:: Prior ED visit and Prior labs Lab Data Attestation: I reviewed the patient's lab results. Lab results narrative: CBC was reviewed and was within normal limits. Basic metabolic profile was reviewed and was within normal limits. High-sensitivity troponin was reviewed and was less than 6. 2-hour repeat high-sensitivity troponin was reviewed and was less than 6. PT with INR and PTT were reviewed and were within normal limits. COVID-19 PCR was reviewed and was negative. Influenza PCR was reviewed and was negative for influenza A and influenza B. RSV PCR was reviewed and was negative. Radiography Chest X-Ray - ED: 2 View, Read by ED Physician, Read by Radiologist and No Acute Disease Diagnostic Testing: PA and lateral chest x-ray was obtained. There are 2 views. On my independent interpretation, lung escalante are clear. There is normal cardiac silhouette. Bony thorax is normal. There is no acute process noted. Radiologist also interpreted the x-ray and agrees. CT scan of the brain was obtained. There is no acute intracranial abnormality. This was interpreted by the radiologist. I also independently reviewed the CT scan. I did not see any intracranial bleeding. EKG Initial EKG: Attestation: I personally reviewed and interpreted this EKG as follows: Interpretation: Sinus Rhythm (72) and Non-Specific ST Changes Comments: EKG was obtained. On my independent interpretation, it showed a normal sinus rhythm with a rate of 72. MN interval, QRS interval, and QTc intervals were all normal. [place] was normal. There are nonspecific ST-T wave changes. Prior EKG tracings: available for review Prior: Unchanged (05/23/2023) Treatment and Re-Evaluation :: Patient was given IV fluids, morphine, and Zofran. Patient was given a dose of Valium here. Patient had minimal improvement with this. Patient is given a dose of meclizine. Patient was given a prescription for meclizine. Patient was instructed to follow-up with her primary care physician in 5 to 7 days. Patient was instructed to return if worse in any way. Patient understood and was agreeable with the plan. All questions were answered. Discharge Plan Triage Chief Complaint: General Illness ED Provider: Bentley Hylton Dx/Rx/DC Orders Clinical Impression: Vertigo, HTN (hypertension), Chest pain Instructions: ED Chest Pain, Uncertain Cause, ED Vertigo, Unspecified Prescriptions: New meclizine 25 mg tablet 25 mg PO 4X/DAY PRN PRN (Reason: Dizziness) Qty: 20 0RF No Action aspirin 81 mg tablet,delayed release (DR/EC) 81 mg PO DAILY Patient Comments: take 1 tablet by mouth once daily sucralfate 1 GM tablet 1 g PO 4X/DAY Patient Comments: TAKE BEFORE EVERY MEAL naproxen 250 MG tablet 500 mg PO BID PRN (Reason: Pain) fluticasone propionate 9.9 ML spray,suspension 1 spray NASAL DAILY omeprazole 40 MG capsule,delayed release(DR/EC) 40 mg PO BID triamterene-hydrochlorothiazid 1 EACH tablet 1 tab PO DAILY Primary Care Provider: Barbara Wise Referrals: Barbara Wise MD [Primary Care Provider, Medical] - 5-7 Days Print Language: Lebanese Disposition Disposition: Home, Self Care
--- NOTE | 2025-02-14 14:07 | EKG12_ITS ---
Test Reason : CP Blood Pressure : */* mmHG Vent. Rate : 72 BPM Atrial Rate : 72 BPM P-R Int : 148 ms QRS Dur : 82 ms QT Int : 380 ms P-R-T Axes : 60 17 18 degrees QTcB Int : 416 ms Normal sinus rhythm Nonspecific T wave abnormality Abnormal ECG When compared with ECG of 23-May-2023 18:34, No significant change was found Confirmed by GERONIMO HARRIS, LISA ([id number]), editorial manager TEA ALONSO ([id number]) on 02/18/2025 1:26:21 PM Referred By: JACK/PENELOPE Confirmed By: LISA MELTON MD
[2025-02-14] MEDS: 0.9% Normal Saline (1000mL) 1,000 ML 1000 ML IV (14:19)
[2025-02-14 14:24] LABS: Hematocrit 38.5 % (37-47); Hemoglobin 12.0 g/dL (12.0-15.0); Immature Granulocytes Count 0.030 X10^3/uL (0.0-0.0); Mean Corp Hgb Conc 31.2 g/dL (32-36); Mean Corpuscular Volume 90.4 fL (81-99); Mean Platelet Vol. 9.9 fl (6.2-12.0); NRBC Flagged by Analyzer 0 % (0-5); Platelet Count 338 K/mm3 (150-450); RBC Distribution Width CV 13.8 % (11.6-14.6); RBC Distribution Width SD 46.0 fl (35.1-43.9); Red Blood Count 4.26 M/mm3 (4.2-5.4); White Blood Count 7.6 K/mm3 (4.4-11.0)
--- NOTE | 2025-02-14 14:29 | CT_ITS ---
PROCEDURE: BRAIN/HEAD WITHOUT CONTRAST 02/14/2025 REASON FOR EXAM: DIZZINESS, HEADACHE TECHNIQUE: Procedure Code: CTBR Modality: CT Procedure: BRAIN/HEAD WITHOUT CONTRAST Coronal and Sagittal reconstruction series were provided. One or more dose reduction techniques were used (e.g., Automated exposure control, adjustment of the mA and/or kV according to patient size, use of iterative reconstruction technique. RADIATION DOSE SUMMARY: CTDlvol: 47.06 mGy DLP: 925.62 mGycm COMPARISON: None FINDINGS: Brain: Within normal limits for age CSF Spaces: Normal Sinuses/Mastoids: Opacification of the right maxillary sinus. Bones: Unremarkable CT/Brain/Head without Contrast IMPRESSION: NO ACUTE FINDINGS Opacification of the right maxillary sinus. Reading Location: [place] [id number]
--- NOTE | 2025-02-14 14:35 | RAD_ITS ---
PROCEDURE: CHEST PA AND LATERAL 02/14/2025 REASON FOR EXAM: CHEST PAIN TECHNIQUE: Procedure Code: RADCXR Modality: DX Procedure: CHEST PA AND LATERAL COMPARISON: None FINDINGS: Hardware: EKG electrodes are seen. Heart: The heart size is normal. Mediastinum: The mediastinal contour is unremarkable. Lungs: The lungs are clear. Bones: Degenerative changes are identified within the thoracic spine. RAD/Chest PA and Lateral IMPRESSION: NO ACUTE FINDINGS. Reading Location: [place] [id number]
[2025-02-14 14:36] LABS: Prothrombin Time (Protime)PT. 14.0 SECONDS (11.7-14.9)
[2025-02-14 14:37] LABS: Partial Thromboplast Time 28.1 Seconds (24.1-36.2)
[2025-02-14 15:07] LABS: Anion Gap 11 (5-15); BUN 10 mg/dL (4-19); BUN/Creat Ratio 14.4 RATIO (10-20); Calcium,Total 9.2 mg/dL (7.6-11.0); Carbon Dioxide 22.5 mmol/L (21.0-32.0); Chloride 105 mmol/L (98-108); Estimated Creatinine Clearance 131.48 ml/min (50-250); Glucose 89 mg/dL (70-99); Potassium 3.5 mmol/L (3.3-5.1); Troponin T High Sensitivity < 6 ng/L (<=14)
[2025-02-14 15:55] LABS: Troponin T High Sens 2 HR < 6 ng/L (<=14)
--- OUTSIDE RECORDS SUMMARY | 2025-02-14 18:49 | XMS RPT_ITS | CCD ---
Author Organization [facility] Care Team Providers Care Shipping Technician Name Role Phone FADY, EMAD W Unavailable Unavailable FADY, EMAD W Unavailable Unavailable NATHEN GONZALEZ (PT) Unavailable Unavailable FADY, EMAD W Unavailable Unavailable FADY, EMAD W Unavailable Unavailable FADY, EMAD W Unavailable Unavailable FADY, EMAD W Unavailable Unavailable FADY, EMAD W Unavailable Unavailable FADY, EMAD W Unavailable Unavailable NATHEN GONZALEZ (PT) Unavailable Unavailable FADY, EMAD W Unavailable Unavailable FADY, EMAD W Unavailable Unavailable FADY, EMAD W Unavailable Unavailable FADY, EMAD W Unavailable Unavailable FADY, EMAD W Unavailable Unavailable FADY, EMAD W Unavailable Unavailable FADY, EMAD W Unavailable Unavailable NATHEN GONZALEZ (PT) Unavailable Unavailable FADY, EMAD W Unavailable Unavailable RAMIRO PRECIADO Unavailable Unavailable None, No PCP Unavailable Unavailable Ramiro Preciado Unavailable Unavailable Barbara Charles A Unavailable Unavailab Barbara Nelson Unavailable Stella Mclaughlin Unavailable Unavailable Unavailable Primary Care Provider UnavailPEDRO LUIS Walton Attending Unavail able NO, PHYSICIAN Primary Care Unavailable Ramiro Preciado MD Primary Care Provider Ramiro Preciado MD Primary Care Provider Barbara Charles MD Primary Care Provider BARBARA CHARLES Primary Care Unavailab Bentley Samuels Attending Unavailable Billie Barbara Primary Care Unavailable Barbara Charles Primary Care Unavailable Rigo Henley Attending Unavailable RAMIRO PRECIADO Primary Care Unavailable CRISTOPHER FERREIRA Attending Unavailable BARBARA CHARLES Primary Care Unavailable BARBARA CHARLES Primary Care Unavailable Barbara Charles MD Primary Care Provider Barbara Charles MD Primary Care Provider BARBARA CHARLES Primary Care Unavailab SERGIO Cartagena Attending Unavailable Medications Current Medications Medication Drug Class(es) Dates Sig (Normalized) Sig (Original) acetaminophen 325 mg / oxyCODONE hydrochloride 5 mg oral tablet (1 source) Opioid Agonist Start: 03-29-2023 take 1 tablet by mouth every eight hours as needed oxyCODONE-acetamino phen 5-325 MG per tablet Indications: Lumbar radiculopathy Take 1 tablet by mouth every 8 hours as needed for up to 3 days. 10 tablet 03/29/2023 Active [id number] 200 actuat albuterol 0.09 mg/actuat metered dose inhaler (3 sources) beta2-Adrenergic Agonist Start: 01-03-2024 take 2 puff(s) by inhalation every four hours as needed Albuterol 108 (90 Base) MCG/ACT Aero Soln inhaler Inhale 2 puffs every 4 hours as needed. 1 g 01/03/2024 Active Start: 02-17-2023 take 1 puff(s) by in halation every four hours as needed Albuterol Sulfate (Ventolin Hfa) 90 mcg/actuation HFA aerosol inhaler Active 1 - 2 PUFF INHALATION EVERY 4 HOURS NEEDED February 17, 2023 12:00am betamethasone 0.5 mg/ml / clotrimazole 10 mg/ml topical cream (1 source) Azole Antifungal, Corticosteroid Start: 10-29-2022 End: 12-28-2022 clotrimazole-betamethasone (Lotrisone) cream Indications: Rash Apply 1 Application topically 2 times a day. 15 g 0 10/29/2022 12/28/2022 Active cyclobenzaprine hydrochloride 10 mg oral tablet (7 sources) Muscle Relaxant Start: 03-29-2023 take 1 tablet by mouth three times daily as needed for muscle spasms Cyclobenzaprine 10 MG tablet Take 1 tablet by mouth 3 times daily as needed for Muscle spasms. 21 tablet 03/29/2023 Active Start: 04-28-2015 End: 06-23-2015 take 10 mg by mouth three times daily as needed Cyclobenzaprine Discontinued 10 MG PO 3 TIMES DAILY NEEDED June 21, 2015 8:30pm June 23, 2015 5:09pm Start: 04-08-2015 End: 04-10-2015 take 10 mg by mouth three times daily as needed Cyclobenzaprine Discontinued 10 MG PO 3 TIMES DAILY NEEDED April 08, 2015 12:00am April 10, 2015 11:05am doxycycline monohydrate 100 mg oral capsule (1 source) Tetracycline-class Drug Start: 01-03-2024 End: 01-13-2024 take 1 capsule by mouth every twelve hours Doxycycline monohydrate 100 MG capsule Take 1 capsule by mouth every 12 hours for 10 days. 20 capsule 01/03/2024 01/13/2024 Active etodolac 400 mg oral tablet (1 source) Nonsteroidal Anti-inflammatory Drug Start: 02-06-2024 End: 02-13-2024 take 1 tablet by mouth twice daily etodolac (Lodine) 400 mg tablet Indications: Sprain of left ankle, initial encounter Take 1 tablet (400 mg) by mouth 2 times a day for 7 days. 14 tablet 02/06/2024 02/13/2024 Active famotidine 20 mg oral tablet (1 [...] may affect the action of this medication. Comment on above: It is very important that you take or use this exactly as directed. Do not skip doses or discontinue unless directed by your doctor.Obtain medical advice before taking any non-prescription drugs as some may affect the action of this medication. fluticasone propionate 0.05 mg/actuat metered dose nasal spray (14 sources) Corticosteroid Start: 10-29-2022 take 2 spray(s) nasal route once daily fluticasone (Flonase) 50 mcg/actuation nasal spray Indications: Allergic rhinitis, unspecified seasonality, unspecified trigger Administer 2 sprays into each nostril once daily. 16 g 11 10/29/2022 Active Start: 07-28-2021 End: 10-29-2022 fluticasone (Flonase) 50 mcg/actuation nasal spray 2 sprays by Does not apply route once daily. 0 07/28/2021 10/29/2022 Discontinued (Reorder) Start: 02-10-2021 End: 07-28-2021 take 2 spray(s) nasal route once daily fluticasone (FLONASE) 50 mcg/actuation nasal spray Indications: Chronic rhinitis Use 2 Sprays in each nostril once daily. 64 g 0 07/28/2021 Active Start: 04-17-2019 Fluticasone Pr opionate Active 1 SPRAY NASAL DAILY April 17, 2019 12:00am Start: 04-02-2019 End: 04-11-2019 Flonase 50 mcg/inh nasal spr ay ; 1 spray(s) intranasally once a day Quantity: 1 Refills: 0 Ordered: 01-Apr-2019 Stella Mclaughlin Start: 01-Apr-2019 End: 10-Apr-2019 Generic Substitution Allowed Comments: For the nose.It is very important that you take or use this exactly as directed. Do not skip doses or discontinue unless directed by your doctor. fluticasone 50 M CG/ACT Suspension nasal spray 2 sprays by Nasal route daily. Active Comment on above: For the nose.It is v lilliam important that you take or use this exactly as directed. Do not skip doses or discontinue unless directed by your doctor. Use 2 Sprays in each nostril once daily. hydroCHLOROthiazide 25 mg / triamterene 37.5 mg oral tablet (15 sources) Potassium-sparing Diuretic, Thiazide Diuretic Start: 02-11-20 21 End: 10-30-19 23 take 1 tablet by mouth once daily triamterene-hydro chlorothiazid (Maxzide-25) 37.5-25 mg tablet Indications: Peripheral edema Take 1 tablet by mouth once daily. 90 tablet 3 10/29/2022 Active Start: 01-28-2020 take 1 tablet by luis th once daily Triamterene-Hydrochlorothiazid Active 1 TABLET PO DAILY January 27, 2020 11:00pm Start: 04-08-2015 End: 04-10-2015 take 1 tablet by mouth once daily Triamterene-Hydrochlorothiazid Discontin ued 1 TABLET PO DAILY April 08, 2015 12:00am April 10, 2015 11:04am take 1 tablet by luis th once daily triamterene-hydrochlorothiazide 75-50 MG tablet Take 1 tablet by mouth daily. Active take 1 tablet by luis th once daily Maxzide-25 oral tablet ; 1 tab(s) orally once a day Quantity: 0 Refills: 0 Ordered: 01-Jul-2019 Sirisha Barr Generic Substitution Allowed Comment on above: Take 1 tablet by luis th once daily. hydrOXYzine hydrochloride 25 mg oral tablet (2 sources) Antihistamine Start: 10-30-19 23 End: 11-29-19 23 take 1 tablet by mouth every six hours hydrOXYzine HCL (Atarax) 25 mg tablet Indications: Pruritus Take 1 tablet (25 mg) by mouth every 6 hours if needed for itching. 90 tablet 10/29/2022 Active loratadine 10 mg oral capsule (1 source) Start: 09-27-19 End: 10-26-19 take 1 capsule by mouth once daily loratadine 10 mg oral capsule ; 1 cap(s) orally once a day Quantity: 30 Refills: 0 Ordered: 26-Sep-2020 Barbara Perkins Start: 26-Sep-2020 End: 25-Oct-2020 Generic Substitution Allowed Comments: Obtain medical advice before taking any non-prescription drugs as some may affect the action of this medication. Comment on above: Obtain medical advic e before taking any non-prescription drugs as some may affect the action of this medication. 12 hr loratadine 5 mg / pseudoephedrine sulfate 120 mg extended release oral tablet (1 source) alpha-Adrenergic Agonist Start: 04-02-20 19 take 1 tablet by mouth every twelve hours Loratadine-D 12 Hour oral tablet, extended release ; 1 tab(s) orally every 12 hours Quantity: 20 Refills: 0 Ordered: 01-Apr-2019 Stella Mclaughlin Start: 01-Apr-2019 Generic Substitution Allowed Comments: Check with your doctor before becoming .Obtain medical advice before taking any non-prescription drugs as some may affect the action of this medication.Swallow whole. Do not crush. Comment on above: Check with your doct or before becoming .Obtain medical advice before taking any non-prescription drugs as some may affect the action of this medication.Swallow whole. Do not crush. naproxen 500 mg oral tablet (18 sources) Nonsteroidal Anti-inflammatory Drug Start: 07-29-19 End: 10-30-19 23 take 1 tablet by mouth twice daily as needed for pain naproxen (Naprosyn) 500 mg tablet Indications: Chronic pain of left knee Take 1 tablet (500 mg) by mouth 2 times a day as needed for mild pain (1 - 3). 180 tablet 3 10/29/2022 Active Start: 03-09-2021 End: 07-28-2021 take 1 tablet by mouth once daily as needed for pain naproxen (NAPROSYN) 500 mg tablet Take 1 tablet by mouth once daily as needed (pain/inflammation, take with food.). 90 tablet 0 07/28/2021 Active Start: 04-17-2019 take 500 mg by mouth twice daily Naproxen Active 500 MG PO TWICE A DAY April 17, 2019 12:00am Start: 01-14-2019 End: 01-20-2019 take 1 tablet by mouth twice daily at mealtime Naprosyn 500 mg oral tablet ; 1 tab(s) orally 2 times a day Quantity: 14 Refills: 0 Ordered: 13-Jan-2019 Rome Montana Start: 13-Jan-2019 End: 19-Jan-2019 Generic Substitution Allowed Comments: Check with your doctor before becoming .May cause drowsiness or dizziness.Obtain medical advice before taking any non-prescription drugs as some may affect the action of this medication.Take with food or milk. Start: 04-27-2015 End: 06-23-2015 take 250 mg by mouth once daily as needed Naproxen Discontinued 250 MG PO DAILY NEEDED April 27, 2015 12:00am June 23, 2015 5:04pm Start: 04-08-2015 End: 04-10-2015 take 500 mg by mouth three times daily at mealtime Naproxen Discontinued 500 MG PO 3 TIMES DAILY WITH MEALS April 08, 2015 12:00am April 10, 2015 11:04am Comment on above: Check with your doct or before becoming .May cause drowsiness or dizziness.Obtain medical advice before taking any non-prescription drugs as some may affect the action of this medication.Take with food or milk. Take 1 tablet by luis th once daily as needed (pain/inflammation, take with food.). omeprazole 40 mg delayed release oral capsule (14 sources) Proton Pump Inhibitor Start: 023 take 1 capsule by mouth once daily omeprazole (PriLOSEC) [address] capsule Indications: Gastroesophageal reflux disease, unspecified whether esophagitis present Take 1 capsule (40 mg) by mouth once daily. 90 capsule 3 10/29/2022 Active Start: 02-10-2021 End: 07-28-2021 take 1 capsule by mouth once daily omeprazole (PriLOSEC) [address] capsule Indications: Gastroesophageal reflux disease, unspecified whether esophagitis present Take 1 capsule (40 mg) by mouth once daily. 90 capsule 3 10/29/2022 Active Start: 01-28-2020 End: 10-29-2022 take 40 mg by mouth twice daily Omeprazole Active 40 MG PO TWICE A DAY January 27, 2020 11:00pm OMEPRAZOLE PO Ta ke by mouth. Active OMEPRAZOLE PO Ta ke by mouth. 0 Active Comment on above: Take 1 capsule by mo uth once daily. May substitute two 20 mg pills if 40 mg not covered(dispense #360, of 20 mg pills if this is the case) ondansetron 4 mg disintegrating oral tablet (3 sources) Serotonin-3 Receptor Antagonist Start: End: take 1 dose under the tongue once 4 mg, Sublingual, ONCE, 1 dose, On 01/03/24 at 2145 Start: 01-03-2024 take 1 tablet by luis th every four hours as needed Ondansetron 4 MG Tab Dispersible tablet Take 1 tablet by mouth every 4 hours as needed for Nausea. Place on tongue 30 tablet 01/03/2024 Active Start: 05-30-2021 End: 05-30-2021 ondansetron (ZOFRAN-ODT) disintegrating tablet 4 mg permethrin 50 mg/ml topical cream (1 source) Pyrethroid Start: 10-29-2022 End: 10-29-2022 permethrin (Elimite) 5 % cream Indications: Pruritus Apply topically 1 time for 1 dose. Apply to skin from hairline to toes and wash off 8-10 hours later. 60 g 0 10/29/2022 10/29/2022 Active predniSONE 20 mg oral tablet (6 sources) Start: 03-29-2023 take 1 tablet by mouth once daily predniSONE 20 MG tablet Take 1 tablet by mouth daily. 5 tablet 03/29/2023 Active Start: 02-03-2021 End: 05-23-2023 take 60 mg by mouth once daily Prednisone Discontinued 60 MG PO DAILY February 02, 2021 11:00pm May 23, 2023 6:44pm Start: 09-26-2020 End: 09-30-2020 take 1 tablet by mouth once daily at mealtime predniSONE 50 mg oral tablet ; 1 tab(s) orally once a day Quantity: 5 Refills: 0 Ordered: 26-Sep-2020 Barbara Perkins Start: 26-Sep-2020 End: 30-Sep-2020 Generic Substitution Allowed Comments: It is very important that you take or use this exactly as directed. Do not skip doses or discontinue unless directed by your doctor.Obtain medical advice before taking any non-prescription drugs as some may affect the action of this medication.Take with food or milk. Comment on above: It is very important that you take or use this exactly as directed. Do not skip doses or discontinue unless directed by your doctor.Obtain medical advice before taking any non-prescription drugs as some may affect the action of this medication.Take with food or milk. sucralfate 1000 mg oral tablet (14 sources) Aluminum Complex Start: 017 End: 023 take 1 tablet by mouth four times daily before mealtime sucralfate (Carafate) 1 gram tablet Indications: Gastroesophageal reflux disease, unspecified whether esophagitis present Take 1 tablet (1 g) by mouth 4 times a day before meals. 360 tablet 3 10/29/2022 Active Sucralfate (BUDDY FATE PO) Take by mouth. Active Sucralfate (BUDDY FATE PO) Take by mouth. 0 Active Comment on above: Take 1 tablet by luis th before meals and at bedtime. Completed/Discontinued Medications Medication Drug Class(es) Dates Sig (Normalized) Sig (Original) acetaminophen 325 mg oral tablet (3 sources) Start: 02-06-2024 End: 02-06-2024 take 650 mg by mouth once as needed for pain 650 mg, oral, Once, On Tue02/06/24 at 1625, For 1 dose, If ordered PRN for pain, nurse is permitted to administer this medication for higher pain scores based on patient preference? Yes Start: 12-12-2020 take 2 tablets by mo uth every four hours as needed Acetaminophen (Tylenol) 325 mg Tablet Active 650 MG PO EVERY 4 HOURS NEEDED 0 December 11, 2020 11:00pm acetaminophen 325 mg / HYDROcodone bitartrate 5 mg oral tablet (5 sources) Opioid Agonist Start: 05-30-2021 End: 05-30-2021 hydroCODone-acetaminophen (NORCO) 5-325 MG per tablet 1 tablet Start: 02-03-2021 End: 05-23-2023 take 1 tablet by mouth every six hours Hydrocodone-Acetaminophen Discontinued 1 TABLET PO EVERY 6 HOURS 10 February 03, 2021 May 23, 2023 6:44pm Start: 07-02-2019 End: 07-04-2019 take 1 tablet by mouth every four hours as needed Hydrocodone-Acetaminophen Discontinued 1 TABLET PO EVERY 4 HOURS NEEDED 01 03July 02, 2019 July 03, 2019 11:07pm amoxicillin 875 mg / clavulanate 125 mg oral tablet (1 source) Penicillin-class Antibacterial Start: 01-14-2019 End: 01-23-2019 take 1 tablet by mouth every twelve hours amoxicillin-clavulanate 875 mg-125 mg oral tablet ; 1 tab(s) orally every 12 hours Quantity: 20 Refills: 0 Ordered: 13-Jan-2019 Rome Montana Start: 13-Jan-2019 End: 22-Jan-2019 Status: Other Generic Substitution Allowed Comments: Finish all this medication unless otherwise directed by prescriber.Take with food or milk. Comment on above: Finish all this medication unless otherw ise directed by prescriber.Take with food or milk. aspirin 81 mg delayed release oral tablet (13 sources) Platelet Aggregation Inhibitor, Nonsteroidal Anti-inflammatory Drug Start: 03-17-2020 End: 07-28-2021 take 1 tablet by mouth once daily aspirin, enteric coated (ASPIRIN, ENTERIC COATED) 81 mg EC tablet Indications: Bilateral leg edema Take 1 tablet by mouth once daily. 90 tablet 0 07/28/2021 Active aspirin 81 MG Ch ew Tab chewable tablet Chew 1 tablet daily. Active Comment on above: Take 1 tablet by luis once daily. COMPOUNDED PRESCRIPTION (10 sources) Start: 12-15-2015 COMPOUNDED PRESCRIPTION Indications: Edema , Venous stasis KNEE HIGH COMPRESSION STOCKINGS 30-40 MM. DX: (R60.9) Edema; (I87.8) Venous stasis; (R60.0) Bilateral leg edema 2 Each 0 12/15/2015 Active Start: 06-25-2013 COMPOUNDED PRE SCRIPTION Compression knee-highs for LE edema. 2 Package 0 06/25/2013 Active Comment on above: Compression knee-hig hs for LE edema. KNEE HIGH COMPRESSIO N STOCKINGS 30-40 MM. DX: (R60.9) Edema; (I87.8) Venous stasis; (R60.0) Bilateral leg edema CPAP (10 sources) Start: 10-22-2014 CPAP Please do mask refitting for skin irritation from nasal pillows and leaking. Consider FFM when eligible for new mask. 1 Units 0 10/22/2014 Active Start: 09-10-2014 CPAP Indicatio ns: RAFAEL (obstructive sleep apnea) Change Auto PAP to 5-13 cm of water with humidification. Mask (per patient preference) optional chin strap (if indicated) , filters, tubing, humidifier and lifetime supplies. 1 Device 0 09/10/2014 Active Comment on above: Change Auto PAP to 5 -13 cm of water with humidification. Mask (per patient preference) optional chin strap (if indicated) , filters, tubing, humidifier and lifetime supplies. Please do mask refit ting for skin irritation from nasal pillows and leaking. Consider FFM when eligible for new mask. docusate sodium 100 mg oral capsule (2 sources) Start: End: take 1 capsule by mouth once daily Docusate Sodium (Colace) 100 MG capsule Discontinued 100 MG PO DAILY April 27, 2015 12:00am April 28, 2015 4:46pm 12 hr guaiFENesin 1200 mg extended release oral tablet (1 source) Start: End: take 1 tablet by mouth every twelve hours Mucus Relief ER 1200 mg oral tablet, extended release ; 1 tab(s) orally every 12 hours Quantity: 14 Refills: 0 Ordered: 13-Jan-2019 Rome Montana Start: 13-Jan-2019 End: 19-Jan-2019 Status: Other Generic Substitution Allowed Comments: Medication should be taken with plenty of water.Swallow whole. Do not crush. Comment on above: Medication should be taken with plenty of water.Swallow whole. Do not crush. hydrocortisone acetate 25 mg rectal suppository (2 sources) Corticosteroid Start: End: take 25 mg rectal route twice daily as needed Hydrocortisone Acetate (Anusol Hc) 25 MG Suppos. Discontinued 25 MG RECTAL TWICE DAILY NEEDED April 27, 2015 12:00am April 28, 2015 4:46pm meclizine hydrochloride 25 mg oral tablet (2 sources) Antiemetic Start: End: take 25 mg by mouth three times daily Meclizine Discontinued 25 MG PO THREE TIMES A DAY January 29, 2020 10:15am March 17, 2020 2:18pm oxyCODONE hydrochloride 5 mg oral tablet (2 sources) Opioid Agonist Start: End: take 5-10 mg by mouth every four hours Oxycodone Discontinued 5 - 10 MG PO Q4H 31 08December 12, 2020 December 29, 2020 12:46pm polyethylene glycol 3350 07779 mg powder for oral solution (2 sources) Osmotic Laxative Start: End: take 17 g by mouth once daily Polyethylene Glycol 3350 Discontinued 17 GM PO DAILY April 28, 2015 12:00am June 21, 2015 5:53pm Problems Active Problems Problem Classification Problem Date Documented Da te Episodic/Chronic Adjustment disorders (6 sources) Adjustment disorder with mixed anxiety and depressed mood; Translations: [Adjustment disorder with mixed anxiety and depressed mood] Onset: 5 10-22-2014 Chronic Biliary tract disease (2 sources) Acute cholecystitis; Translations: [Acute cholecystitis] 12-23-2020 Episodic E Codes: Fall (1 source) Fall; Translations: [Unspecified fall, initial encounter] Episodic Esophageal disorders (4 sources) Gastroesophageal reflux disease; Translations: [Gastro-esophageal reflux disease without esophagitis] Onset: 3 Chronic Essential hypertension (2 sources) Hypertensive disorder; Translations: [Essential (primary) hypertension] 01-03-2018 Chronic Gastrointestinal hemorrhage (4 sources) Hematemesis; Translations: [Hematemesis] 12-31-2017 Episodic Mood disorders (2 sources) Depressive disorder; Translations: [Depression] 12-31-2017 Chronic Nonspecific chest pain (6 sources) Chest wall pain; Translations: [Other chest pain] Onset: 4 02-11-2021 Episodic Other bone disease and musculoskeletal deformities (2 sources) Somatic dysfunction of rib; Translations: [Segmental and somatic dysfunction of rib cage] 12-31-2017 Episodic Other diseases of veins and lymphatics (2 sources) Chronic acquired lymphedema; Translations: [Lymphedema, not elsewhere classified] 01-03-2018 Chronic Other ear and sense organ disorders (2 sources) Otalgia, left ear; Translations: [Left ear pain] 04-18-2019 Episodic Other gastrointestinal disorders (2 sources) Constipation; Translations: [Constipation, unspecified] 12-31-2017 Episodic Other gastrointestinal disorders (1 source) History of gastroesophageal reflux disease; Translations: [Personal history of other diseases of the digestive system] 05-23-2023 Episodic Other inflammatory condition of skin (1 source) Itching of skin; Translations: [Pruritus, unspecified] 10-29-2022 Episodic Other inflammatory condition of skin (2 sources) Pruritus, unspecified; Translations: [Pruritus, unspecified] Onset: 3 Episodic Other lower respiratory disease (2 sources) Cough; Translations: [Cough] 02-17-2023 Episodic Other nervous system disorders (3 sources) Other chronic pain; Translations: [Other chronic pain] Onset: 7 Chronic Other nervous system disorders (1 source) Difficulty in walking, not elsewhere classified; Translations: [Difficulty in walking, not elsewhere classified] Onset: 8 Chronic Other nervous system disorders (6 sources) Difficulty walking; Translations: [Difficulty in walking, not elsewhere classified] Onset: 8 06-22-2017 Chronic Other nervous system disorders (2 sources) Facial paresthesia; Translations: [Paresthesia of skin] 01-28-2020 Episodic Other non-traumatic joint disorders (1 source) Knee pain; Translations: [Pain in left knee] 10-29-2022 Episodic Other non-traumatic joint disorders (2 sources) Pain in left knee; Translations: [Pain in left knee] Onset: 3 Episodic Other nutritional; endocrine; and metabolic disorders (5 sources) Body mass index 40+ - severely obese; Translations: [Morbid (severe) obesity due to excess calories] Onset: 5 10-22-2014 Chronic Other nutritional; endocrine; and metabolic disorders (2 sources) Morbid obesity; Translations: [Morbid (severe) obesity due to excess calories] 12-31-2017 Chronic Other nutritional; endocrine; and metabolic disorders (2 sources) Body mass index 30+ - obesity; Translations: [Obesity, unspecified] 01-03-2018 Chronic Other screening for suspected conditions (not mental disorders or infectious disease) (4 sources) Encounter for screening mammogram for malignant neoplasm of breast; Translations: [Patient encounter status] Onset: 8 Episodic Other skin disorders (1 source) Eruption; Translations: [Rash and other nonspecific skin eruption] 10-29-2022 Episodic Other skin disorders (2 sources) Rash and other nonspecific skin eruption; Translations: [Rash and other nonspecific skin eruption] Onset: 3 Episodic Other upper respiratory disease (7 sources) Chronic rhinitis; Translations: [Chronic rhinitis] Onset: 5 07-29-2005 Chronic Other upper respiratory disease (1 source) Allergic rhinitis; Translations: [Allergic rhinitis, unspecified] 10-29-2022 Chronic Other upper respiratory disease (2 sources) Allergic rhinitis, unspecified; Translations: [Allergic rhinitis, unspecified] Onset: 3 Chronic Other upper respiratory infections (3 sources) Viral upper respiratory tract infection; Translations: [Acute upper respiratory infection, unspecified] Onset: 3 02-17-2023 Episodic Otitis media and related conditions (1 source) Dysfunction of bilateral eustachian tubes; Translations: [Unspecified Eustachian tube disorder, bilateral] 06-20-2023 Episodic Residual codes; unclassified (8 sources) Obstructive sleep apnea syndrome; Translations: [Obstructive sleep apnea (adult) (pediatric)] Onset: 5 10-22-2014 Chronic Residual codes; unclassified (1 source) Peripheral edema; Translations: [Edema, unspecified] 10-29-2022 Episodic Residual codes; unclassified (2 sources) Edema, unspecified; Translations: [Edema, unspecified] Onset: 3 Episodic Spondylosis; intervertebral disc disorders; other back problems (9 sources) Other intervertebral disc displacement, lumbosacral region; Translations: [Herniation of nucleus pulposus] Onset: 8 07-25-2017 Chronic Sprains and strains (3 sources) Sprain of left ankle; Translations: [Sprain of unspecified ligament of left ankle, initial encounter] Onset: 4 02-06-2024 Episodic Unclassified (2 sources) ITCHING ALL OVER 09-26-2020 Comment on above: ITCHING ALL OVER Viral infection (3 sources) Viral infection, unspecified; Translations: [Viral disease] Onset: 4 Episodic Past or Other Problems Problem Classification Problem Date Documented Date Episodic/Chronic Allergic reactions (8 sources) Contact dermatitis; Translations: [Contact dermatitis and other eczema, unspecified cause] Onset: 11-23-2004 09-26-2020 Episodic Conditions associated with dizziness or vertigo (7 sources) Peripheral vertigo; Translations: [Other peripheral vertigo, bilateral] Onset: 03-10-2020 03-10-2020 Episodic Headache; including migraine (6 sources) Headache; Translations: [Headache] Onset: 11-23-2004 11-23-2004 Episodic Other diseases of kidney and ureters (6 sources) Hydronephrosis; Translations: [Unspecified hydronephrosis] Onset: 02-03-2015 02-03-2015 Episodic Other nervous system disorders (6 sources) Abnormal gait; Translations: [Unspecified abnormalities of gait and mobility] Onset: 07-25-2017 07-25-2017 Episodic Other non-traumatic joint disorders (1 source) Stiffness of unspecified hip, not elsewhere classified; Translations: [Stiffness of unspecified hip, not elsewhere classified] Onset: 06-22-2017 Episodic Other non-traumatic joint disorders (5 sources) Joint pain; Translations: [Pain in joint, other specified sites] Onset: 12-23-2004 12-23-2004 Episodic Other non-traumatic joint disorders (6 sources) Hip stiff; Translations: [Stiffness of unspecified hip, not elsewhere classified] Onset: 06-22-2017 06-22-2017 Episodic Other non-traumatic joint disorders (1 source) Pain in right knee; Translations: [Pain in joint, lower leg] Onset: 12-23-2004 01-03-2024 Episodic Other upper respiratory disease (6 sources) Deviated nasal septum; Translations: [Deviated nasal septum] Onset: 02-18-2005 02-18-2005 Episodic Other upper respiratory disease (3 sources) Bleeding from nose; Translations: [Epistaxis] Onset: 03-10-2020 03-10-2020 Episodic Other upper respiratory disease (5 sources) Epistaxis; Translations: [Epistaxis] Onset: 03-10-2020 03-10-2020 Episodic Residual codes; unclassified (7 sources) Bilateral lower limb edema; Translations: [Localized edema] Onset: 01-08-2015 01-08-2015 Episodic Spondylosis; intervertebral disc disorders; other back problems (20 sources) Sacrococcygeal disorders, not elsewhere classified; Translations: [Radiculopathy, lumbar region] Onset: 11-12-2016 11-12-2016 Episodic NEGATED: Highlighted row has not occurred!Residual codes; unclassified (5 sources) Disease Episodic Results Test Name Value Interpretation Reference Range Facility No Panel Informationon 02-05 Left Foot: No acute fracture or subluxation. Left Ankle: Prominent soft tissue swelling surrounding the left ankle. No acute fracture or subluxation. Signed by Ben Emerson MD TELERADIOLOGY STUDY: Left foot and ankle radiographs; 02/06/2024, 1636 INDICATION: Injury. COMPARISON: None Available. ACCESSION NUMBER(S): [id number], [id number] ORDERING CLINICIAN: TECHNIQUE: 3 views of the left foot and 3 views of the left ankle. FINDINGS: Left Foot: There is no displaced fracture. The alignment is anatomic. Small posterior calcaneal spur. No soft tissue abnormality is seen. Left Ankle: There is no acute displaced fracture. The alignment is anatomic. There is increased generalized soft tissue swelling surrounding the left ankle. TELERADIOLOGY Ben Emerson MD - 02/06/2024 STUDY: Left foot and ankle radiographs; 02/06/2024, 1636 INDICATION: Injury. COMPARISON: None Available. ACCESSION NUMBER(S): [id number], [id number] ORDERING CLINICIAN: TECHNIQUE: 3 views of the left foot and 3 views of the left ankle. FINDINGS: Left Foot: There is no displaced fracture. The alignment is anatomic. Small posterior calcaneal spur. No soft tissue abnormality is seen. Left Ankle: There is no acute displaced fracture. The alignment is anatomic. There is increased generalized soft tissue swelling surrounding the left ankle. IMPRESSION: Left Foot: No acute fracture or subluxation. Left Ankle: Prominent soft tissue swelling surrounding the left ankle. No acute fracture or subluxation. Signed by Ben Emerson MD [facility] Work Phone: Radiology Study observation (narrative) [facility] Work Phone: No Panel InformationOrdered By: Ben Emerson on 02-06-2024 [facility] Work Phone: XR ANKLE LEFT 3+ VIEWSon XR ANKLE LEFT 3+ VIEWS STUDY: Left foot and ankle radiographs; 02/06/2024, 163 INDICATION: Injury. COMPARISON: None Available. ACCESSION NUMBER(S): [id number], [id number] ORDERING CLINICIAN: TECHNIQUE: 3 views of the left foot and 3 views of the left ankle. FINDINGS: Left Foot: There is no displaced fracture. The alignment is anatomic. Small posterior calcaneal spur. No soft tissue abnormality is seen. Left Ankle: There is no acute displaced fracture. The alignment is anatomic. There is increased generalized soft tissue swelling surrounding the left ankle. IMPRESSION: Left Foot: No acute fracture or subluxation. Left Ankle: Prominent soft tissue swelling surrounding the left ankle. No acute fracture or subluxation. Signed by Ben Emerson MD [facility] XR FOOT LEFT 3+ VIEWSon XR FOOT LEFT 3+ VIEWS STUDY: Left foot and ankle radiographs; 02/06/2024, 163 INDICATION: Injury. COMPARISON: None Available. ACCESSION NUMBER(S): [id number], [id number] ORDERING CLINICIAN: TECHNIQUE: 3 views of the left foot and 3 views of the left ankle. FINDINGS: Left Foot: There is no displaced fracture. The alignment is anatomic. Small posterior calcaneal spur. No soft tissue abnormality is seen. Left Ankle: There is no acute displaced fracture. The alignment is anatomic. There is increased generalized soft tissue swelling surrounding the left ankle. IMPRESSION: Left Foot: No acute fracture or subluxation. Left Ankle: Prominent soft tissue swelling surrounding the left ankle. No acute fracture or subluxation. Signed by Ben Emerson MD [facility] INFLUENZA A AND B, PCRon FLUAV and FLUBV Ag IF Nom (Unsp spec) Negative NEGATIVE [facility] INFLUENZA B Negative NEGATIVE [facility] Comment on above: TESTING PERFORMED BY MARY KAY CORRECTED ON 01/02 AT 2151: PREVIOUSLY REPORTED NO GROWTH TESTING PERFORMED BY MARY KAY [facility] NOVEL CORONAVIRUSon 01-03-20 24 NARRATIVE This test was perfor med using isothermal MARYK AY for the qualitative detection of SARS-CoV-2 nucleic acid. Normal [facility] Comment on above: Performed By: #### C OVID #### [place] [address] SARS-CoV-2 (COVID-19) RNA MARY KAY+probe Ql (Unsp spec) Not detected Normal NOT DETECTED [facility] Comment on above: Result Comment: Nega tive results do not preclude SARS-CoV-2 infection and should not be used as the sole basis for treatment or other patient management decisions. Optimum specimen types and timing for peak viral levels during infections caused by SARS-CoV-2 has not been determined. The possibility of a false negative result should especially be considered if the patient's recent exposures or clinical presentation suggest that SARS-CoV-2 infection is probable, and diagnostic tests for other causes of illness (e.g., other respiratory illness) are negative. Collection of a new specimen and re-testing may be necessary if the patient is critically ill or clinically deteriorating. Performed By: #### C OVID #### Testing performed at [address] [address] NOVEL CORONAVIRUS LAB 1 - NA SOPHARYNGEALon 01-03-2024 SARS-CoV-2 (COVID-19) RNA MARY KAY+probe Ql (Unsp spec) Not detected NOT DETECTED [facility] Comment on above: Negative results do not preclude SARS-CoV-2 infection and should not be used as the sole basis for treatment or other patient management decisions. Optimum specimen types and timing for peak viral levels during infections caused by SARS-CoV-2 has not been determined. The possibility of a false negative result should especially be considered if the patient's recent exposures or clinical presentation suggest that SARS-CoV-2 infection is probable, and diagnostic tests for other causes of illness (e.g., other respiratory illness) are negative. Collection of a new specimen and re-testing may be necessary if the patient is critically ill or clinically deteriorating. SARS-CoV-2 (COVID-19) RNA MARY KAY+probe Ql (Unsp spec) This test was performed using isothermal MARY KAY for the qualitative detection of SARS-CoV-2 nucleic acid. [facility] RAPID FLU Aon 01-03-2024 INFLUENZA B Negative Normal NEGATIVE [facility] Comment on above: Result Comment: TEST ING PERFORMED BY MARY KAY CORRECTED ON 01/02 AT 2151: PREVIOUSLY REPORTED NO GROWTH TESTING PERFORMED BY MARY KAY Performed By: #### R FLUAB #### Testing performed at [address] [address] INFLUENZA A Negative Normal NEGATIVE [facility] Comment on above: Performed By: #### R FLUAB #### Testing performed at [address] [address] CNOVon 06-20-2023 CNOV Office Visit (WSTR ) MARICARMEN PLASENCIA ([id number]) 1975 F Date Time Provider Department 06/20/23 7:15 PM ARTIS LOVING [facility] During your visit today, we recorded the following information about you: Temperature Pulse Respiration Blood pressure 97 degrees 76/minute 16/minute 128/76 Weight 118.7 kg Artis Loving APRN.JERRICA 06/20/2023 7:26 PM Signed Subjective HPI Nontoxic-appearing female presents urgent care chief complaint bilateral ear discomfort. Duration of symptoms 2 to 3 days. Associated symptoms bilateral ear discomfort bump on the inner lip. States ear is the most bothersome symptom today. Has not used any OTC medications. No known sick contacts. No ear trauma loss of hearing or otorrhea. Denies any fever body aches chills productive cough chest pain shortness of breath pleuritic pain hemoptysis nausea vomiting abdominal pain change in bowel or bladder habits. Past medical history prescription medication use and allergies reviewed. .Patient presents with: Ear Pain: bilateral, nausea x 2 days, bump on inside of lip x 3 days PAST MEDICAL HISTORY Diagnosis Date ALLERGY, UNSPECIFIED 11/23/2004 Bilateral Knee Pain 12/23/2004 DDD (degenerative disc disease), lumbar Depression Obesity, unspecified Obstructive sleep apnea Snoring PAST SURGICAL HISTORY Procedure Laterality Date COLONOSCOPY 05/16/15 Dr. Chou PAST SURGICAL HISTORY OF 05/16/15 Dr. Chou Endoscopy SEPTOPLASTY/SUBMUCOUS RESECJ W/WO CARTILAGE GRF 05/31/05 Septoplasty [facility] [place] Strabismus surgery ALLERGIES Patient has no known allergies. MEDICATIONS triamterene-hydroCHLOROthia zide (MAXZIDE-25) 37.5-25 mg per tablet Take 1 tablet by mouth once daily. omeprazole (PRILOSEC) 40 mg capsule Take 1 capsule by mouth once daily. May substitute two 20 mg pills if 40 mg not covered(dispense #360, of 20 mg pills if this is the case) aspirin, enteric coated (ASPIRIN, ENTERIC COATED) 81 mg EC tablet Take 1 tablet by mouth once daily. sucralfate (CARAFATE) 1 gram tablet Take 1 tablet by mouth before meals and at bedtime. fluticasone (FLONASE) 50 mcg/actuation nasal spray Use 2 Sprays in each nostril once daily. naproxen (NAPROSYN) 500 mg tablet Take 1 tablet by mouth once daily as needed (pain/inflammation, take with food.). COMPOUNDED PRESCRIPTION KNEE HIGH COMPRESSION STOCKINGS 30-40 MM. DX: (R60.9) Edema; (I87.8) Venous stasis; (R60.0) Bilateral leg edema CPAP Change Auto PAP to 5-13 cm of water with humidification. Mask (per patient preference) optional chin strap (if indicated) , filters, tubing, humidifier and lifetime supplies. COMPOUNDED PRESCRIPTION Compression knee-highs for LE edema. CPAP Please do mask refitting for skin irritation from nasal pillows and leaking. Consider FFM when eligible for new mask. FAMILY HISTORY Problem Relation Age of Onset Diabetes Father other (leukemia) Father Hypertension Mother Heart Attack Mother Stroke Mother Migraines Mother other (breast tumor benign) Mother other (Menieres disease) Mother No Known Problems Brother No Known Problems Maternal Grandmother No Known Problems Brother Factor 5 Leiden Daughter Social History Tobacco Use Smoking status: Never Smokeless tobacco: Never Vaping Use Vaping Use: Never used Substance Use Topics Alcohol use: No Drug use: No BP 128/76 Pulse 76 Temp 36.1 ?C (97 ?F) Resp 16 Wt 118.7 kg (261 lb 11 oz) LMP 07/16/2017 SpO2 99% BMI 41.91 kg/m? Review of Systems Constitutional: Negative for chills, fever and malaise/fatigue. HENT: Positive for ear pain. Negative for congestion, ear discharge, sinus pain and sore throat. Eyes: Negative for blurred vision, pain, discharge and redness. Respiratory: Negative for cough, hemoptysis, sputum production, shortness of breath, wheezing and stridor. Cardiovascular: Negative for chest pain. Gastrointestinal: Positive for nausea. Negative for abdominal pain, diarrhea and vomiting. Musculoskeletal: Negative for myalgias. Skin: Negative for itching and rash. Neurological: Negative for dizziness and headaches. Objective Physical Exam Constitutional: General: She is not in acute distress. Appearance: She is not diaphoretic. HENT: Head: Normocephalic. Jaw: No trismus, tenderness, swelling or pain on movement. Right Ear: Tympanic membrane, ear canal and external ear normal. Left Ear: Tympanic membrane, ear canal and external ear normal. Ears: Comments: Clear fluid noted behind bilateral TMs. Right greater than left. Mouth/Throat: Mouth: Mucous membranes are moist. Pharynx: Oropharynx is clear. Uvula midline. No pharyngeal swelling, oropharyngeal exudate, posterior oropharyngeal erythema or uvula swelling. Comments: Small viral ulcer noted right side lower inner lip. Eyes: (more content not included)... Normal [facility] L501.4020on 05-24-2023 TROPONIN-I HS 4 pg/mL Normal 3.0-54.0 [facility] Comment on above: Result Comment: Plesharri christian Note: New Test Units and Gender Specific Reference Ranges. For more information see Policy Stat Procedure [place] High Sensitivity Troponin (TNIH) and attachments. Performed By: #### L 501.4020 #### [facility] [address] [place], [address] 12 Lead EKGon 05-23-2023 [address] [facility] Cardiovascular Services [address] [place] [address] 12 Lead EKG 05/23/23 1834 MR#: [id number] Acct: [id number] Name: MARICARMEN HART Rep #: [id number] : 1975 47 From: Dwight Medrano MD Attending Dr: Status: DEP ER Ordering Dr: Rigo Henley MD Date: 05/23/23 Location: ED Sex: F H Admitted: Test Reason : CP Blood Pressure : / mmHG Vent. Rate : 083 BPM Atrial Rate : 083 BPM P-R Int : 144 ms QRS Dur : 086 ms QT Int : 386 ms P-R-T Axes : 058 018 043 degrees QTc Int : 453 ms Normal sinus rhythm Normal ECG Confirmed by GERONIMO HARRIS, DWIGHT ([id number]), market editor TEA ALONSO ([id number]) on 05/24/2023 9:46:05 AM Referred By: MAGAN Confirmed By:DWIGHT MEDRANO MD 05/24/23 0946 Date Dwight Medrano MD CC: Dr. Barbara Charles MD; Dr. Rigo Henley MD Signed Normal [facility] Absolute lymphocyte countOrd ered By: Rigo Henley on 05-23-2023 Lymphocytes Auto (Unsp spec) [#/Vol] 2.13 10*3/uL 0.83-4.51 [facility] Automated lymphocyte count a s percentage of total leukocytesOrdered By: Rigo Henley on 05-23-2023 Lymphocytes/100 WBC Auto (Unsp spec) 24.1 % - [facility] Basic Metabolic Profile (BMP )on 05-23-2023 BUN/CRE 9.3 RATIO Low 10-20 [facility] Comment on above: Order Comment: 1 Y Performed By: #### L 501.5425, L500.2500, L100.0100 #### [facility] [address] [place], [address] CA,Total 9.2 mg/dL Normal 8.5-10.1 [facility] Comment on above: Order Comment: 1 Y Performed By: #### L 501.5425, L500.2500, L100.0100 #### [facility] [address] [place], [address] ECRCL 92.95 ml/min Normal [facility] Comment on above: Order Comment: 1 Y Performed By: #### L 501.5425, L500.2500, L100.0100 #### [facility] [address] [place], [address] EST GFR - AA 79 mL/min Normal >60 [facility] Comment on above: Order Comment: 1 Y Result Comment: Afri can Cypriot GFR Calc Performed By: #### L 501.5425, L500.2500, L100.0100 #### [facility] [address] [place], [address] GAP 4 Low 5-15 [facility] Comment on above: Order Comment: 1 Y Performed By: #### L 501.5425, L500.2500, L100.0100 #### [facility] [address] [place], [address] GFR/1.73 sq M.predicted among non-blacks MDRD (S/P/Bld) [Vol rate/Area] 65 mL/min/{1.73_m2} Normal >60 [facility] Comment on above: Order Comment: 1 Y Result Comment: Non- GFR Calc Performed By: #### L 501.5425, L500.2500, L100.0100 #### [facility] [address] [place], [address] Basic Metabolic Profile (BMP )Ordered By: Rigo Henley on 05-23-2023 CO2 [Moles/Vol] 29.0 mmol/L Normal 21.0-32.0 [facility] Comment on above: Order Comment: 1 Y Performed By: #### L 501.5425, L500.2500, L100.0100 #### [facility] [address] [place], [address] Basophil percentageOrdered B y: Rigo Henley on 05-23-2023 Basophils/100 WBC (Bld) 0.6 % 0-1 [facility] Chloride [Moles/Vol] 106 mmol/L Normal 98-107 [facility] Comment on above: Order Comment: 1 Y Performed By: #### L 501.5425, L500.2500, L100.0100 #### [facility] [address] [place], [address] Eosinophils/100 WBC (Bld) 0.7 % 0-5 [facility] Glucose [Mass/Vol] 88 mg/dL Normal 74-106 [facility] Comment on above: Order Comment: 1 Y Performed By: #### L 501.5425, L500.2500, L100.0100 #### [facility] [address] [place], [address] Hemoglobin (Bld) [Mass/Vol] 11.7 g/dL 12.0-15.0 [facility] Monocytes/100 WBC (Bld) 5.2 % 0-10 [facility] Neutrophils (Bld) [#/Vol] 6.1 10*3/uL 2.0-7.7 [facility] Neutrophils/100 WBC (Bld) 68.9 % 47-70 [facility] Potassium [Moles/Vol] 3.2 mmol/L Low 3.5-5.1 [facility] Comment on above: Order Comment: 1 Y Performed By: #### L 501.5425, L500.2500, L100.0100 #### [facility] [address] [place], [address] Sodium [Moles/Vol] 139 mmol/L Normal 136-145 [facility] Comment on above: Order Comment: 1 Y Performed By: #### L 501.5425, L500.2500, L100.0100 #### [facility] [address] [place], [address] WBC (Bld) [#/Vol] 8.9 10*3/uL 4.4-11.0 [facility] CBC W/Diff, Automatedon 05-05 Absolute Lymph 2.13 X10 3/uL Normal 0.83-4.51 [facility] Comment on above: Performed By: #### L 501.5425, L500.2500, L100.0100 #### [facility] [address] [place], [address] Absolute Neut 6.1 X10 3/uL Normal 2.0-7.7 [facility] Comment on above: Performed By: #### L 501.5425, L500.2500, L100.0100 #### [facility] [address] [place], [address] Basophils/100 WBC (Bld) 0.6 % Normal 0-1 [facility] Comment on above: Performed By: #### L 501.5425, L500.2500, L100.0100 #### [facility] [address] [place], [address] Eosinophils/100 WBC (Bld) 0.7 % Normal 0-5 [facility] Comment on above: Performed By: #### L 501.5425, L500.2500, L100.0100 #### [facility] [address] [place], [address] Erythrocyte distribution width (RBC) [Ratio] 13.8 % Normal 11.6-14.6 [facility] Comment on above: Performed By: #### L 501.5425, L500.2500, L100.0100 #### [facility] [address] [place], [address] Hematocrit (Bld) [Volume fraction] 38.4 % Normal 37-47 [facility] Comment on above: Performed By: #### L 501.5425, L500.2500, L100.0100 #### [facility] [address] [place], [address] Hemoglobin (Bld) [Mass/Vol] 11.7 g/dL Low 12.0-15.0 [facility] Comment on above: Performed By: #### L 501.5425, L500.2500, L100.0100 #### [facility] [address] [place], [address] IG% 0.500 Normal 0.0-0.9 [facility] Comment on above: Result Comment: IG% - Immature Granulocytes (promyelocytes, myelocytes and metamyelocytes) > 1% indicates that a LEFT SHIFT is Present. Performed By: #### L 501.5425, L500.2500, L100.0100 #### [facility] [address] [place], [address] Lymphocytes/100 WBC (Bld) 24.1 % Normal 19-41 [facility] Comment on above: Performed By: #### L 501.5425, L500.2500, L100.0100 #### [facility] [address] [place], [address] MCH (RBC) [Entitic mass] 27.5 pg Normal 27.0-32.0 [facility] Comment on above: Performed By: #### L 501.5425, L500.2500, L100.0100 #### [facility] [address] [place], [address] MCHC (RBC) [Mass/Vol] 30.5 g/dL Low 32-36 [facility] Comment on above: Performed By: #### L 501.5425, L500.2500, L100.0100 #### [facility] [address] [place], [address] MCV (RBC) [Entitic vol] 90.1 fL Normal 81-99 [facility] Comment on above: Performed By: #### L 501.5425, L500.2500, L100.0100 #### [facility] [address] [place], [address] Monocytes/100 WBC (Bld) 5.2 % Normal 0-10 [facility] Comment on above: Performed By: #### L 501.5425, L500.2500, L100.0100 #### [facility] [address] [place], [address] Neutrophils/100 WBC (Bld) 68.9 % Normal 47-70 [facility] Comment on above: Performed By: #### L 501.5425, L500.2500, L100.0100 #### [facility] [address] [place], [address] Nucleated RBC (Bld) [#/Vol] 0 10*3/uL Normal 0-5 [facility] Comment on above: Performed By: #### L 501.5425, L500.2500, L100.0100 #### [facility] [address] [place], [address] Platelet mean volume (Bld) [Entitic vol] 10.0 fL Normal 6.2-12.0 [facility] Comment on above: Performed By: #### L 501.5425, L500.2500, L100.0100 #### [facility] [address] [place], [address] Platelets (Bld) [#/Vol] 298 10*3/uL Normal 150-450 [facility] Comment on above: Performed By: #### L 501.5425, L500.2500, L100.0100 #### [facility] [address] [place], [address] RBC (Bld) [#/Vol] 4.26 10*6/uL Normal 4.2-5.4 [facility] Comment on above: Performed By: #### L 501.5425, L500.2500, L100.0100 #### [facility] [address] [place], [address] RDW SD 45.2 fl High 35.1-43.9 [facility] Comment on above: Performed By: #### L 501.5425, L500.2500, L100.0100 #### [facility] [address] [place], [address] WBC (Bld) [#/Vol] 8.9 10*3/uL Normal 4.4-11.0 [facility] Comment on above: Performed By: #### L 501.5425, L500.2500, L100.0100 #### [facility] [address] [place], [address] Chest 1 View (Portable)on Chest 1 View (Portable) [facility] Imaging Services [address] [place] [address] Chest 1 View (Portable) MR#: [id number] Acct: [id number] Name: MARICARMEN HART Rep #: [id number] : 1975 F 47 From: Raissa Pena PCP: Dr. Barbara Charles MD Status: [facility] ER Study: Chest 1 View (Portable) Date of Exam: 05/23/23 Exam# [id number] Ordering Dr: Rigo Henley MD [id number] INDICATION: chest pain EXAMINATION/TECHNIQUE: X-RAY - XR Chest 1 View COMPARISON: CR ChestNov 16 2022 FINDINGS: LINES/DEVICES: None. LUNGS: No consolidation, edema or effusion. No pneumothorax. MEDIASTINUM AND CARDIOVASCULAR STRUCTURES: Cardiac silhouette not enlarged. Central airways and mediastinal contour are unremarkable. BONES AND SOFT TISSUES: Unremarkable. RAD/Chest 1 View (Portable) IMPRESSION: No radiographic evidence of acute cardiopulmonary disease. Electronically Signed: Raissa Perez MD at 20:21 EST Reading Location ID and State: [facility] / [place] Tel , Service support , CC: Dr. Barbara Charles MD; Dr. Rigo Henley MD Strategy Specialist: Signed Normal [facility] Determination of erythrocyte mean corpuscular volume (MCV)Ordered By: Rigo Henley on 05-23-2023 MCV (RBC) [Entitic vol] 90.1 fL 81-99 [facility] Emergency Department Summary on 05-23-2023 Emergency Department Summary [facility] Medical Records Department [address] [place] [id number] Emergency Department Summary 05/23/23 MR#: [id number] Acct: [id number] Name: MARICARMEN HART Rep #: [id number] : 1975 47 From: Rigo Henley MD PCP: Dr. Barbara Charles MD Status:REG ER Location: ED HPI History of Present Illness Chief Complaint: Chest Pain Detail of Chief Complaint: Chest tightness and tingling left upper extremity started 1 hour prior to p Informant: patient Onset/Context/Timing Onset: Hours Activity at onset: sudden and light activity Timing: Continuous Quality: Positive for Pressure and Tightness Location: Substernal Current Severity: Mild Maximum Severity: Severe Worsened By: Nothing Relieved By: Nothing Associated Symptoms: Positive for Nausea, Diaphoresis and Dyspnea; Negative for Vomiting, Cough, Fever, Lightheadedness, Acid Reflux or Palpitations Narrative Narrative: Patient is a 47-year-old woman who is a non-smoker. She has no history of diabetes, hypercholesterolemia. She does have history of hypertension. She is a non-smoker. 1 family had AR at early age. Patient is still experiencing pain and tingling in her left upper extremity. She denies fever, chills night sweats. She denies headache, visual, ocular auditory symptoms. She denies upper respiratory tract infectious symptoms. She denies leg pain, swelling discoloration. She denies history of VTE or risk factors for VTE. She denies intolerance to greasy or fried foods. She is status post cholecystectomy. She does have history of reflux. She states has never had pain like this with her reflux. Prior Similar Symptoms: No Recent Illness/Hospitalization: No CVD Risk Factors: Positive for Hypertension and Family History 1' Hypercholesterolemia or Smoking PE Risk Factors: Negative for Recent Travel/Surgery, Recent Immobilization, Prior DVT or PE, Cancer or OCP + Smoking + >/=35 TAD Risk Factors: Positive for Hypertension; Negative for Marfan's Syndrome or Family History PFSH PFS Medical History Acute cholecystitis H/O corrected congenital abnormality of eye History of stress test RAFAEL on CPAP Sleep apnea Home Medications sucralfate 1 gram tablet 1 g PO 4X/DAY ACID REFLUX 08/13/16 [History Last Taken 12/11/20] fluticasone propionate 50 mcg/actuation nasal spray,suspension 1 spray NASAL DAILY allergies 04/17/19 [History Last Taken 12/09/20] naproxen 250 mg tablet 500 mg PO BID PRN Pain 04/17/19 [History Last Taken 12/11/20] omeprazole 40 mg capsule,delayed release 40 mg PO BID gerd 01/28/20 [History Last Taken 12/11/20] triamterene 37.5 mg-hydrochlorothiazide 25 mg tablet 1 tab PO DAILY bp 01/28/20 [History Last Taken 12/11/20] aspirin 81 mg tablet,delayed release 81 mg PO DAILY heart health 03/17/20 [History Last Taken 12/10/20] acetaminophen 325 mg tablet (Tylenol) 650 mg (2 x 325 mg) PO Q4H PRN PRN P/F #0 tabs 12/12/20 [Rx Last Taken Unknown] albuterol sulfate 90 mcg/actuation aerosol inhaler (Ventolin HFA) 1 - 2 puff inhalation Q4H PRN PRN Wheezing ##1 02/17/23 [Rx Last Taken Unknown] Allergy/AdvReac Type Severity Reaction Status Date / Time No Known Allergies Allergy Verified 05/23/23 18:29 Family History Father Leukemia CVA (cerebral vascular accident) Myocardial infarction Hypertension Mother Breast cancer CVA (cerebral vascular accident) Myocardial infarction Grandmother Arthritis Surgical History History of nasal surgery Status post laparoscopic cholecystectomy Social History household members: other details: daughter and mother housing: house Smoking Status: Never smoker alcohol intake: never what type of physical activity do you participate in: none do you feel safe at home: Yes ROS ROS ED Constitutional Constitutional ED: Denies chills, fever(s), subjective, sweats or weight loss Eyes Eyes: Reports none ENT ENT ED: Denies rhinorrhea or sore throat Cardiovascular Cardiovascular: Reports as per HPI; Denies orthopnea or paroxysmal nocturnal dyspnea Respiratory/Chest Respiratory/Chest: Reports dyspnea; Denies cough, dyspnea on exertion, orthopnea or paroxysmal nocturnal dyspnea Gastrointestinal Gastrointestinal: Denies abdominal pain, nausea or vomiting Genitourinary Genitourinary ED: Denies dysuria, hematuria or urinary frequency Musculoskeletal Musculoskeletal: Denies arthralgias, back pain or myalgias Integumentary Denies rash Neurologic Neurologic: Denies headache(s) Psychiatric Psychiatric: Reports anxiety; Denies depression Endocrine Endocrinology: Denies cold intolerance, heat intolerance, polydipsia or kiara (more content not included)... Normal [facility] Erythrocyte distribution wid th ratioOrdered By: Rigo Henley on 05-23-2023 Erythrocyte distribution width (RBC) [Ratio] 13.8 % 11.6-14.6 [facility] Erythrocyte distribution wid th standard deviationOrdered By: Rigo Henley on 05-23-2023 Erythrocyte distribution width (RBC) [Entitic vol] 45.2 fL 35.1-43.9 [facility] Hematocrit Auto (Bld) [Volum e fraction]Ordered By: Rigovane Henley on 05-23-2023 Hematocrit (Bld) [Volume fraction] 38.4 % 37-47 [facility] Immature granulocytes/100 WB C Auto (Bld)Ordered By: Rigovane Henley on 05-23-2023 Immature granulocytes/100 WBC (Bld) 0.500 % 0.0-0.9 [facility] Comment on above: IG% - Immature Granu locytes (promyelocytes, myelocytes and metamyelocytes) > 1% indicates that a LEFT SHIFT is Present. L501.5425on 05-23-2023 TROPONIN-I HS 3 pg/mL Normal 3.0-54.0 [facility] Comment on above: Order Comment: 1 Y Result Comment: Marco christian Note: New Test Units and Gender Specific Reference Ranges. For more information see Policy Stat Procedure [place] High Sensitivity Troponin (TNIH) and attachments. Performed By: #### L 501.5425, L500.2500, L100.0100 #### [facility] [address] [place], [address] Laboratory - Chemistry and C hemistry - challengeOrdered By: Rigovane Henley on 05-23-2023 Urea nitrogen/Creatinine [Mass ratio] 9.3 mg/mg 10-20 [facility] - Hematology and Cell countsOrdered By: Rigovane Henley on 05-23-2023 MCH (RBC) [Entitic mass] 27.5 pg 27.0-32.0 [facility] MCHC (RBC) [Mass/Vol] 30.5 g/dL 32-36 [facility] Nucleated RBC/100 WBC (Bld) [Ratio] 0 % 0-5 [facility] Platelet mean volume (Bld) [Entitic vol] 10.0 fL 6.2-12.0 [facility] Platelets (Bld) [#/Vol] 298 10*3/uL 150-450 [facility] No Panel InformationOrdered By: Rigovane Henley on 05-23-2023 Troponin I High Sensitivity 4 pg/mL 3.0-54.0 [facility] Comment on above: Please Note: New Vera t Units and Gender Specific Reference Ranges. For more information see Policy Stat Procedure [place] High Sensitivity Troponin (TNIH) and attachments. Estimated Creatinine Clearance Calc 92.95 ml/min [facility] Estimated GFR (MDRD) Amer 79 mL/min >60 [facility] Comment on above: GFR Calc Estimated GFR (MDRD) Non-Af Amer 65 mL/min >60 [facility] Comment on above: Non- GFR Calc RBC Auto (Bld) [#/Vol]Ordere d By: Rigo Henley on 05-23-2023 RBC (Bld) [#/Vol] 4.26 10*6/uL 4.2-5.4 [facility] Serum or plasma calcium rodrigo urement (mass/volume)Ordered By: Rigo Henley on 05-23-2023 Calcium [Mass/Vol] 9.2 mg/dL 8.5-10.1 [facility] Serum or plasma creatinine m easurement (mass/volume)Ordered By: Rigo Henley on 05-23-2023 Creatinine [Mass/Vol] 0.96 mg/dL Normal 0.55-1.02 [facility] Comment on above: The validity of the calculated GFR & GFRAA in patients over 70 years has not been determined. Clinical correlation is essential. Order Comment: 1 Y Result Comment: The validity of the calculated GFR GFRAA in patients over 70 years has not been determined. Clinical correlation is essential. Performed By: #### L 501.5425, L500.2500, L100.0100 #### [facility] [address] [place], [address] Serum or plasma urea nitroge n measurement (mass/volume)Ordered By: Rigo Henley on 05-23-2023 Urea nitrogen [Mass/Vol] 9 mg/dL Normal 7-18 [facility] Comment on above: Order Comment: 1 Y Performed By: #### L 501.5425, L500.2500, L100.0100 #### [facility] [address] [place], [address] Thin prep Papanicolaou smear with manual screeningOrdered By: Rigo Henley on 05-23-2023 Thin prep Papanicolaou smear with manual screening 4 -15 [facility] XR SPINE LUMBAR 2-3 VIEWSon 03-29-2023 XR SPINE LUMBAR 2-3 VIEWS EXAM: XR SPINE LUMBAR 2-3 VIEWS TECHNIQUE: AP, lateral and lateral lumbosacral views lumbar spine HISTORY: pain COMPARISON: CT scan 05/30/2021 FINDINGS: No acute fracture or subluxation. Mild degenerative endplate change throughout the lumbar spine. Degenerative facet changes on the left at L5-S1. IMPRESSION: No acute fracture or subluxation. Normal [facility] 12 Lead EKGon 02-17-2023 12 Lead E[address] [facility] Cardiovascular Services [address] [place] [address] 12 Lead EKG 02/17/23 1700 MR#: [id number] Acct: [id number] Name: MARICARMEN HART Rep #: [id number] : 1975 47 From: Dwight Medrano MD Attending Dr: Dr. Bentley Hylton DO Status: DEP ER Ordering Dr: Bentley Hylton DO Date: 02/17/23 Location: ED Sex: F H Admitted: Test Reason : SOB Blood Pressure : / mmHG Vent. Rate : 059 BPM Atrial Rate : 059 BPM P-R Int : 162 ms QRS Dur : 082 ms QT Int : 384 ms P-R-T Axes : 052 017 040 degrees QTc Int : 380 ms Sinus bradycardia Nonspecific T wave abnormality Abnormal ECG Confirmed by DWIGHT MEDRANO MD ([id number]), market editor TEA ALONSO ([id number]) on 02/23/2023 12:01:52 PM Referred By: Confirmed By:DWIGHT MEDRANO MD 02/23/23 1201 Date Dwight Medrano MD CC: Dr. Bentley Hylton, ; Dr. Barbara Charles MD Signed Normal [facility] Absolute lymphocyte countOrd ered By: Bentley Hylton on 02-17-2023 Lymphocytes Auto (Unsp spec) [#/Vol] 1.80 10*3/uL 0.83-4.51 [facility] Basic Metabolic Profile (BMP )on 02-17-2023 BUN/CRE 15.3 RATIO Normal 10-20 [facility] Comment on above: Order Comment: 'TROP ' Serial specimen #1, #2 or #3: 1 Performed By: #### L 500.2500, L501.4020, L100.0100 ####[facility] [address] [place], [address] CA,Total 9.0 mg/dL Normal 8.5-10.1 [facility] Comment on above: Order Comment: 'TROP ' Serial specimen #1, #2 or #3: 1 Performed By: #### L 500.2500, L501.4020, L100.0100 ####[facility] [address] [place], [address] Chloride [Moles/Vol] 106 mmol/L Normal 98-107 [facility] Comment on above: Order Comment: 'TROP ' Serial specimen #1, #2 or #3: 1 Performed By: #### L 500.2500, L501.4020, L100.0100 ####[facility] [address] [place], [address] CO2 [Moles/Vol] 31.0 mmol/L Normal 21.0-32.0 [facility] Comment on above: Order Comment: 'TROP ' Serial specimen #1, #2 or #3: 1 Performed By: #### L 500.2500, L501.4020, L100.0100 ####[facility] [address] [place], [address] Creatinine [Mass/Vol] 0.72 mg/dL Normal 0.55-1.02 [facility] Comment on above: Order Comment: 'TROP ' Serial specimen #1, #2 or #3: 1 Result Comment: The validity of the calculated GFR GFRAA in patients over 70 years has not been determined. Clinical correlation is essential. Performed By: #### L 500.2500, L501.4020, L100.0100 ####[facility] [address] [place], [address] ECRCL 95.34 ml/min Normal [facility] Comment on above: Order Comment: 'TROP ' Serial specimen #1, #2 or #3: 1 Performed By: #### L 500.2500, L501.4020, L100.0100 ####[facility] [address] [place], [address] EST GFR - AA 111 mL/min Normal >60 [facility] Comment on above: Order Comment: 'TROP ' Serial specimen #1, #2 or #3: 1 Result Comment: Afri can Cypriot GFR Calc Performed By: #### L 500.2500, L501.4020, L100.0100 ####[facility] [address] [place], [address] GAP 2 Low 5-15 [facility] Comment on above: Order Comment: 'TROP ' Serial specimen #1, #2 or #3: 1 Performed By: #### L 500.2500, L501.4020, L100.0100 ####[facility] [address] [place], [address] GFR/1.73 sq M.predicted among non-blacks MDRD (S/P/Bld) [Vol rate/Area] 91 mL/min/{1.73_m2} Normal >60 [facility] Comment on above: Order Comment: 'TROP ' Serial specimen #1, #2 or #3: 1 Result Comment: Non- GFR Calc Performed By: #### L 500.2500, L501.4020, L100.0100 ####[facility] [address] [place], [address] Glucose [Mass/Vol] 94 mg/dL Normal 74-106 [facility] Comment on above: Order Comment: 'TROP ' Serial specimen #1, #2 or #3: 1 Performed By: #### L 500.2500, L501.4020, L100.0100 ####[facility] [address] [place], [address] Potassium [Moles/Vol] 3.6 mmol/L Normal 3.5-5.1 [facility] Comment on above: Order Comment: 'TROP ' Serial specimen #1, #2 or #3: 1 Performed By: #### L 500.2500, L501.4020, L100.0100 ####[facility] [address] [place], [address] Sodium [Moles/Vol] 139 mmol/L Normal 136-145 [facility] Comment on above: Order Comment: 'TROP ' Serial specimen #1, #2 or #3: 1 Performed By: #### L 500.2500, L501.4020, L100.0100 ####[facility] [address] [place], [address] Urea nitrogen [Mass/Vol] 11 mg/dL Normal 7-18 [facility] Comment on above: Order Comment: 'TROP ' Serial specimen #1, #2 or #3: 1 Performed By: #### L 500.2500, L501.4020, L100.0100 ####[facility] [address] [place], [address] Basophil percentageOrdered B y: Bentley Hylton on 02-17-2023 Basophils/100 WBC (Bld) 0.3 % 0-1 [facility] Chloride [Moles/Vol] 106 mmol/L 98-107 [facility] Eosinophils/100 WBC (Bld) 1.0 % 0-5 [facility] Glucose [Mass/Vol] 94 mg/dL 74-106 [facility] Neutrophils (Bld) [#/Vol] 5.5 10*3/uL 2.0-7.7 [facility] Neutrophils/100 WBC (Bld) 70.1 % 47-70 [facility] Potassium [Moles/Vol] 3.6 mmol/L 3.5-5.1 [facility] Sodium [Moles/Vol] 139 mmol/L 136-145 [facility] WBC (Bld) [#/Vol] 7.8 10*3/uL 4.4-11.0 [facility] Blood erythrocytes count (nu mber/volume)Ordered By: Bentley Hylton on 02-17-2023 RBC (Bld) [#/Vol] 4.35 10*6/uL 4.2-5.4 [facility] Blood hemoglobin measurement (mass/volume)Ordered By: Bentley Hylton on 02-17-2023 Hemoglobin (Bld) [Mass/Vol] 11.7 g/dL 12.0-15.0 [facility] Blood lymphocytes/100 leukoc ytesOrdered By: Bentley Hylton on 02-17-2023 Lymphocytes/100 WBC (Bld) 23.2 % 19-41 [facility] Blood monocytes/100 leukocyt esOrdered By: Bentley Hylton on 02-17-2023 Monocytes/100 WBC (Bld) 5.0 % 0-10 [facility] Blood platelet mean volumeOr dered By: Bentley Hylton on 02-17-2023 Platelet mean volume (Bld) [Entitic vol] 9.6 fL 6.2-12.0 [facility] CBC W/Diff, Automatedon 02-02 Absolute Lymph 1.80 X10 3/uL Normal 0.83-4.51 [facility] Comment on above: Performed By: #### L 500.2500, L501.4020, L100.0100 ####[facility] [address] [place], [address] Absolute Neut 5.5 X10 3/uL Normal 2.0-7.7 [facility] Comment on above: Performed By: #### L 500.2500, L501.4020, L100.0100 ####[facility] [address] [place], [address] Basophils/100 WBC (Bld) 0.3 % Normal 0-1 [facility] Comment on above: Performed By: #### L 500.2500, L501.4020, L100.0100 ####[facility] [address] [place], [address] Eosinophils/100 WBC (Bld) 1.0 % Normal 0-5 [facility] Comment on above: Performed By: #### L 500.2500, L501.4020, L100.0100 ####[facility] [address] [place], [address] Erythrocyte distribution width (RBC) [Ratio] 13.2 % Normal 11.6-14.6 [facility] Comment on above: Performed By: #### L 500.2500, L501.4020, L100.0100 ####[facility] [address] [place], [address] Hematocrit (Bld) [Volume fraction] 38.9 % Normal 37-47 [facility] Comment on above: Performed By: #### L 500.2500, L501.4020, L100.0100 ####[facility] [address] [place], [address] Hemoglobin (Bld) [Mass/Vol] 11.7 g/dL Low 12.0-15.0 [facility] Comment on above: Performed By: #### L 500.2500, L501.4020, L100.0100 ####[facility] [address] [place], [address] IG% 0.400 Normal 0.0-0.9 [facility] Comment on above: Result Comment: IG% - Immature Granulocytes (promyelocytes, myelocytes and metamyelocytes) > 1% indicates that a LEFT SHIFT is Present. Performed By: #### L 500.2500, L501.4020, L100.0100 ####[facility] [address] [place], [address] Lymphocytes/100 WBC (Bld) 23.2 % Normal 19-41 [facility] Comment on above: Performed By: #### L 500.2500, L501.4020, L100.0100 ####[facility] [address] [place], [address] MCH (RBC) [Entitic mass] 26.9 pg Low 27.0-32.0 [facility] Comment on above: Performed By: #### L 500.2500, L501.4020, L100.0100 ####[facility] [address] [place], [address] MCHC (RBC) [Mass/Vol] 30.1 g/dL Low 32-36 [facility] Comment on above: Performed By: #### L 500.2500, L501.4020, L100.0100 ####[facility] [address] [place], [address] MCV (RBC) [Entitic vol] 89.4 fL Normal 81-99 [facility] Comment on above: Performed By: #### L 500.2500, L501.4020, L100.0100 ####[facility] [address] [place], [address] Monocytes/100 WBC (Bld) 5.0 % Normal 0-10 [facility] Comment on above: Performed By: #### L 500.2500, L501.4020, L100.0100 ####[facility] [address] [place], [address] Neutrophils/100 WBC (Bld) 70.1 % High 47-70 [facility] Comment on above: Performed By: #### L 500.2500, L501.4020, L100.0100 ####[facility] [address] [place], [address] Nucleated RBC (Bld) [#/Vol] 0 10*3/uL Normal 0-5 [facility] Comment on above: Performed By: #### L 500.2500, L501.4020, L100.0100 ####[facility] [address] [place], [address] Platelet mean volume (Bld) [Entitic vol] 9.6 fL Normal 6.2-12.0 [facility] Comment on above: Performed By: #### L 500.2500, L501.4020, L100.0100 ####[facility] [address] [place], [address] Platelets (Bld) [#/Vol] 292 10*3/uL Normal 150-450 [facility] Comment on above: Performed By: #### L 500.2500, L501.4020, L100.0100 ####[facility] [address] [place], [address] RBC (Bld) [#/Vol] 4.35 10*6/uL Normal 4.2-5.4 [facility] Comment on above: Performed By: #### L 500.2500, L501.4020, L100.0100 ####[facility] [address] [place], [address] RDW SD 43.0 fl Normal 35.1-43.9 [facility] Comment on above: Performed By: #### L 500.2500, L501.4020, L100.0100 ####[facility] [address] [place], [address] WBC (Bld) [#/Vol] 7.8 10*3/uL Normal 4.4-11.0 [facility] Comment on above: Performed By: #### L 500.2500, L501.4020, L100.0100 ####[facility] [address] [place], [address] Chest PA and Lateralon 02-17 Chest PA and Lateral [facility] Imaging Services [address] [place] [address] Chest PA and Lateral MR#: [id number] Acct: [id number] Name: MARICARMEN HART Rep #: [id number] : 1975 F 47 From: Katrina gilbert MD PCP: Dr. Barbara Charles MD Status: [facility] ER Study: Chest PA and Lateral Date of Exam: 02/17/23 Exam# [id number] Ordering Dr: Bentley Hylton DO [id number] INDICATION: Cough EXAMINATION/TECHNIQUE: X-RAY - XR Chest 2 Views COMPARISON: 02/03/2021. FINDINGS: LINES/DEVICES: None. LUNGS: No consolidation, edema or effusion. No pneumothorax. MEDIASTINUM AND CARDIOVASCULAR STRUCTURES: Cardiac silhouette not enlarged. Central airways and mediastinal contour are unremarkable. BONES AND SOFT TISSUES: Unremarkable. RAD/Chest PA and Lateral IMPRESSION: No radiographic evidence of acute cardiopulmonary disease. Electronically Signed: Katrina Sotelo MD at 18:14 EST Reading Location ID and State: [id number] / Tel , Service support , CC: Dr. Bentley Hylton DO; Dr. Barbara Charles MD Strategy Specialist: Signed Normal [facility] Determination of erythrocyte mean corpuscular volume (MCV)Ordered By: Bentley Hylton on 02-17-2023 MCV (RBC) [Entitic vol] 89.4 fL 81-99 [facility] Emergency Department Summary on 02-17-2023 Emergency Department Summary [facility] Medical Records Department [address] [place] [address] Emergency Department Summary 02/17/23 MR#: [id number] Acct: [id number] Name: MARICARMEN HART Rep #: [id number] : 1975 47 From: Bentley Hylton DO PCP: Dr. Barbara Charles MD Status:DEP ER Location: ED HPI History of Present Illness Chief Complaint: Cold Sx Informant: patient Onset/Context/Timing Onset: Weeks (1) Context: gradual Timing: Continuous Quality: Positive for - (Pressure in her chest) Worsened by: Nothing Relieved by: Nothing Associated Symptoms cough, sore throat, subjective and chills; Negative for rhinorrhea, post nasal drip, fever, sweats, clear sputum, white sputum, yellow sputum or green sputum Narrative Narrative: Patient presents with cough and congestion that has been getting worse over the past week. Patient states she has been also having some pressure in her chest over the last week. Patient states it is constant. Patient states it is gradually gotten worse. Patient states nothing makes it better and nothing makes it worse. Patient admits to some shortness of breath with it. Patient also admits to a cough but denies any sputum production. Patient denies any fevers but admits to some subjective chills. Patient denies any sinus pressure or rhinorrhea. PE Risk Factors: Negative for Cancer, OCP + Smoking + > 35, Prior DVT or PE, Recent immobilization, Recent surgery or Recent travel [facility] Medical History Acute cholecystitis H/O corrected congenital abnormality of eye History of stress test RAFAEL on CPAP Sleep apnea Home Medications sucralfate 1 gram tablet 1 g PO 4X/DAY ACID REFLUX 08/13/16 [History Last Taken 12/11/20] fluticasone propionate 50 mcg/actuation nasal spray,suspension 1 spray NASAL DAILY allergies 04/17/19 [History Last Taken 12/09/20] naproxen 250 mg tablet 500 mg PO BID PRN Pain 04/17/19 [History Last Taken 12/11/20] omeprazole 40 mg capsule,delayed release 40 mg PO BID gerd 01/28/20 [History Last Taken 12/11/20] triamterene 37.5 mg-hydrochlorothiazide 25 mg tablet 1 tab PO DAILY bp 01/28/20 [History Last Taken 12/11/20] aspirin 81 mg tablet,delayed release 81 mg PO DAILY heart health 03/17/20 [History Last Taken 12/10/20] acetaminophen 325 mg tablet (Tylenol) 650 mg (2 x 325 mg) PO Q4H PRN PRN P/F #0 tabs 12/12/20 [Rx Last Taken Unknown] hydrocodone-acetaminophen 5-325mg 5mg-325mg 1 tab PO Q6H PRN pain 3 days #10 tabs 02/03/21 [Rx Last Taken Unknown] prednisone 20 mg tablet 60 mg (3 x 20 mg) PO DAILY #15 tabs 02/03/21 [Rx Last Taken Unknown] albuterol sulfate 90 mcg/actuation aerosol inhaler (Ventolin HFA) 1 - 2 puff inhalation Q4H PRN PRN Wheezing ##1 02/17/23 [Rx Last Taken Unknown] Allergy/AdvReac Type Severity Reaction Status Date / Time No Known Allergies Allergy Verified 02/17/23 14:01 Family History Father Leukemia CVA (cerebral vascular accident) Myocardial infarction Hypertension Mother Breast cancer CVA (cerebral vascular accident) Myocardial infarction Grandmother Arthritis Surgical History History of nasal surgery Status post laparoscopic cholecystectomy Social History household members: other details: daughter and mother housing: house Smoking Status: Never smoker alcohol intake: never what type of physical activity do you participate in: none do you feel safe at home: Yes ROS ROS ED Constitutional Constitutional ED: Reports chills; Denies fever(s) Eyes Eyes: Denies blurry vision or change in vision ENT ENT ED: Reports sore throat; Denies rhinorrhea Cardiovascular Cardiovascular: Reports chest pain; Denies palpitations Respiratory/Chest Respiratory/Chest: Reports cough and dyspnea Gastrointestinal Gastrointestinal: Denies nausea or vomiting Genitourinary Genitourinary ED: Denies dysuria or hematuria Musculoskeletal Musculoskeletal: Denies back pain or neck pain Integumentary Denies abscess or rash Neurologic Neurologic: Denies headache(s) or weakness Allergic/Immunologic Allergic/Immunologic ED: Denies mouth swelling or urticaria EXAM Physical Exam Const Vital Signs: 02/17/23 14:01 02/17/23 15:33 Temperature 98.4 F Temperature Source Temporal Pulse Rate 97 Respiratory Rate 18 Respiratory Effort Normal Respiratory Pattern Normal Blood Pressure 147/60 H Blood Pressure Mean 89 Pulse Ox 100 Oxygen Delivery Method Room Air Positive well nourished, well developed and obese General Appearance ED: well developed and NAD Nutritional Appearance: obese HEENT Reports moist mucous membranes (more content not included)... Normal [facility] Hematocrit Auto (Bld) [Volum e fraction]Ordered By: Bentley Hylton on 02-17-2023 Hematocrit (Bld) [Volume fraction] 38.9 % 37-47 [facility] Influenza virus A and B and SARS-CoV-2 (COVID-19) Ag panel - Upper respiratory specimOrdered By: Bentley Hylton on 02-17-2023 SARS-CoV-2 (COVID-19) RNA MARY KAY+probe Ql (Resp) [facility] L501.4020on 02-17-2023 TROPONIN-I HS 4 pg/mL Normal 3.0-54.0 [facility] Comment on above: Order Comment: 'TROP ' Serial specimen #1, #2 or #3: 1 Result Comment: Plea se Note: New Test Units and Gender Specific Reference Ranges. For more information see Policy Stat Procedure [place] High Sensitivity Troponin (TNIH) and attachments. Performed By: #### L 500.2500, L501.4020, L100.0100 ####[facility] [id number] [place], [place], [id number] Laboratory - Chemistry and C hemistry - challengeOrdered By: Bentley Hylton on 02-17-2023 CO2 [Moles/Vol] 31.0 mmol/L 21.0-32.0 [facility] Urea nitrogen/Creatinine [Mass ratio] 15.3 mg/mg 10-20 [facility] Laboratory - Hematology and Cell countsOrdered By: Bentley Hylton on 02-17-2023 Erythrocyte distribution width (RBC) [Entitic vol] 43.0 fL 35.1-43.9 [facility] Erythrocyte distribution width (RBC) [Ratio] 13.2 % 11.6-14.6 [facility] Immature granulocytes/100 WBC (Bld) 0.400 % 0.0-0.9 [facility] Comment on above: IG% - Immature Granu locytes (promyelocytes, myelocytes and metamyelocytes) > 1% indicates that a LEFT SHIFT is Present. MCH (RBC) [Entitic mass] 26.9 pg 27.0-32.0 [facility] Nucleated RBC/100 WBC (Bld) [Ratio] 0 % 0-5 [facility] M101.0111on 02-17-2023 M101.0111 *Negative results fr om patients with symptom onset beyond five days should be treated as presumptive and confirmed by a molecular assay if clinically necessary. Negative results should not be used as the sole basis for treatment or for patient management. FLUABV+SARS-CoV2 Ag Pnl Up resp IA.rapid *Positive results do not differentiate between SARS-CoV and SARS-CoV-2. FLUABV+SARS-CoV2 Ag Pnl Up resp IA.rapid Negative Influenza results should be confirmed with FLU PANEL MOLECULAR if indicated. FLUABV+SARS-CoV2 Ag Pnl Up resp IA.rapid * This test has not been FDA cleared or approved; the test has been authorized by FDA under an Emergency Use Authorization (EAU) for use by laboratories certified under CLIA that meet the requirements to perform moderate, high, or waived complexity tests. FLUABV+SARS-CoV2 Ag Pnl Up resp IA.rapid Normal Reference Range: Negative Kacie, EVIE method SARS-CoV-2 (COVID 19) Negative Influenza Ag, Direct NEGATIVE for Influenza A/B Antigen (See Note) Normal [facility] Comment on above: Performed By: #### M 101.0111 #### [facility] Laboratory [facility] [place], [address] MCHC Auto (RBC) [Mass/Vol]Or dered By: Bentley Hylton on 02-17-2023 MCHC (RBC) [Mass/Vol] 30.1 g/dL 32-36 [facility] No Panel InformationOrdered By: Bentley Hylton on 02-17-2023 Estimated Creatinine Clearance Calc 95.34 ml/min [facility] Estimated GFR (MDRD) Amer 111 mL/min >60 [facility] Comment on above: GFR Calc Estimated GFR (MDRD) Non-Af Amer 91 mL/min >60 [facility] Comment on above: Non- GFR Calc Troponin I High Sensitivity 4 pg/mL 3.0-54.0 [facility] Comment on above: Please Note: New Vera t Units and Gender Specific Reference Ranges. For more information see Policy Stat Procedure [place] High Sensitivity Troponin (TNIH) and attachments. Platelets bldOrdered By: Rosangela Hylton on 02-17-2023 Platelets (Bld) [#/Vol] 292 10*3/uL 150-450 [facility] Serum or plasma calcium rodrigo urement (mass/volume)Ordered By: Bentley Hylton on 02-17-2023 Calcium [Mass/Vol] 9.0 mg/dL 8.5-10.1 [facility] Serum or plasma creatinine m easurement (mass/volume)Ordered By: Bentley Hylton on 02-17-2023 Creatinine [Mass/Vol] 0.72 mg/dL 0.55-1.02 [facility] Comment on above: The validity of the calculated GFR & GFRAA in patients over 70 years has not been determined. Clinical correlation is essential. Serum or plasma urea nitroge n measurement (mass/volume)Ordered By: Bentley Hylton on 02-17-2023 Urea nitrogen [Mass/Vol] 11 mg/dL 7-18 [facility] Thin prep Papanicolaou smear with manual screeningOrdered By: Bentley Hylton on 02-17-2023 Thin prep Papanicolaou smear with manual screening 2 5-15 [facility] Upper respiratory specimen i nfluenza A virus, influenza B virus, and severe acute resOrdered By: Bentley Hylton on 02-17-2023 Upper respiratory specimen influenza A virus, influenza B virus, and severe acute res [facility] CT HEAD WITHOUT CONTRASTon 0 05-30-2021 IMPRESSION: No noncontrast CT evidence for acute intracranial pathology. RADIOLOGY NONCONTRAST CT SCAN OF THE HEAD CT HEAD WITHOUT CONTRAST HISTORY: 45-year-old female with headache after fall TECHNIQUE: Multiple axial images are taken from the level the vertex down to the base of the skull without the use of IV contrast. Images were then reconstructed in the sagittal and coronal planes. This exam was performed according to our departmental dose-optimization program which includes use of Automated Exposure Control, adjustment of the mA and/or kV according to patient size and/or use of iterative reconstruction technique. COMPARISON: None. FINDINGS: Brain Parenchyma: No intracranial mass. No intracranial hemorrhage. Simpson-white matter within expected limits of normal for patient's age. Posterior fossa: Normal. Midline shift: None Extra-axial fluid collection: None Ventricles: Normal. Mastoid air cells: Normal. Sinuses: Mucus retention cyst in the inferior maxillary sinuses. Cranium: No depressed skull fracture. Soft tissues: Normal. Orbits: Normal. RADIOLOGY Amos, Liset Nguyen MD - 05/30/[address] SCAN OF THE HEAD CT HEAD WITHOUT CONTRAST HISTORY: 45-year-old female with headache after fall TECHNIQUE: Multiple axial images are taken from the level the vertex down to the base of the skull without the use of IV contrast. Images were then reconstructed in the sagittal and coronal planes. This exam was performed according to our departmental dose-optimization program which includes use of Automated Exposure Control, adjustment of the mA and/or kV according to patient size and/or use of iterative reconstruction technique. COMPARISON: None. FINDINGS: Brain Parenchyma: No intracranial mass. No intracranial hemorrhage. Simpson-white matter within expected limits of normal for patient's age. Posterior fossa: Normal. Midline shift: None Extra-axial fluid collection: None Ventricles: Normal. Mastoid air cells: Normal. Sinuses: Mucus retention cyst in the inferior maxillary sinuses. Cranium: No depressed skull fracture. Soft tissues: Normal. Orbits: Normal. IMPRESSION IMPRESSION: No noncontrast CT evidence for acute intracranial pathology. [facility] Radiology Study observation (narrative) [facility] CT HEAD WITHOUT CONTRASTOrde red By: Liset Trinidad on 05-30-2021 [facility] CT SPINE CERVICAL WITHOUT CO NTRASTon 05-30-2021 IMPRESSION: Straightening of the normal cervical lordosis. This may be positionally related. RADIOLOGY EXAMINATION: CT SPIN E CERVICAL WITHOUT CONTRAST HISTORY: Pain following fall COMPARISON: None. TECHNIQUE: CT Cervical spine without IV contrast. Coronal and sagittal reformations were performed. Dose reduction techniques were achieved by using automated exposure control and/or adjustment of mA and/or kV according to patient size and/or use of iterative reconstruction technique. FINDINGS: Age-indeterminate straightening of the normal cervical lordosis. Additionally, this could be positionally related. Vertebral body heights and alignments are normal with no fracture or listhesis. The dens and lateral masses of C1 are symmetric. No prevertebral soft tissue edema. The visualized skull base exhibits no gross visualized abnormality. The paranasal sinuses and mastoid air cells are pneumatized. The visualized superficial subcutaneous soft tissues are unremarkable. Thoracic inlet, pulmonary apices and visualized airway are unremarkable RADIOLOGY Arcenio Rodriguez, DO - 05/30/2021 EXAMINATION: CT SPINE CERVICAL WITHOUT CONTRAST HISTORY: Pain following fall COMPARISON: None. TECHNIQUE: CT Cervical spine without IV contrast. Coronal and sagittal reformations were performed. Dose reduction techniques were achieved by using automated exposure control and/or adjustment of mA and/or kV according to patient size and/or use of iterative reconstruction technique. FINDINGS: Age-indeterminate straightening of the normal cervical lordosis. Additionally, this could be positionally related. Vertebral body heights and alignments are normal with no fracture or listhesis. The dens and lateral masses of C1 are symmetric. No prevertebral soft tissue edema. The visualized skull base exhibits no gross visualized abnormality. The paranasal sinuses and mastoid air cells are pneumatized. The visualized superficial subcutaneous soft tissues are unremarkable. Thoracic inlet, pulmonary apices and visualized airway are unremarkable IMPRESSION IMPRESSION: Straightening of the normal cervical lordosis. This may be positionally related. [facility] Radiology Study observation (narrative) [facility] CT SPINE LUMBAR WITHOUT CONT RASTon 05-30-2021 IMPRESSION: No visualized abnormality RADIOLOGY EXAM: CT SPINE LUMBA R WITHOUT CONTRAST HISTORY: Back pain following fall COMPARISON: None. TECHNIQUE: Axial CT imaging is performed to the cervical spine. Additional sagittal and coronal reformatted/reconstructed sequences were obtained FINDINGS: Maintenance of the normal lumbar lordosis. Vertebral body heights and alignments exhibit no fracture or listhesis. Age-related intervertebral disc space, endplate and facet arthrosis. Sacroiliac joints are unremarkable for patient's age The visualized abdominal structures are unremarkable. RADIOLOGY Arcenio Rodriguez, DO - 05/30/2021 EXAM: CT SPINE LUMBAR WITHOUT CONTRAST HISTORY: Back pain following fall COMPARISON: None. TECHNIQUE: Axial CT imaging is performed to the cervical spine. Additional sagittal and coronal reformatted/reconstructed sequences were obtained FINDINGS: Maintenance of the normal lumbar lordosis. Vertebral body heights and alignments exhibit no fracture or listhesis. Age-related intervertebral disc space, endplate and facet arthrosis. Sacroiliac joints are unremarkable for patient's age The visualized abdominal structures are unremarkable. IMPRESSION IMPRESSION: No visualized abnormality [facility] Radiology Study observation (narrative) [facility] XR FOREARM RIGHTon IMPRESSION: Normal x-rays RADIOLOGY EXAM: XR FOREARM RIG HT HISTORY: Pain after fall COMPARISON: None. TECHNIQUE: 2 views FINDINGS: No osseous lesion, fracture, dislocation or subluxation. Joint spaces are normal. No visualized effusion. No visualized soft tissue edema. RADIOLOGY Arcenio Rodriguez, DO - 05/30/2021 EXAM: XR FOREARM RIGHT HISTORY: Pain after fall COMPARISON: None. TECHNIQUE: 2 views FINDINGS: No osseous lesion, fracture, dislocation or subluxation. Joint spaces are normal. No visualized effusion. No visualized soft tissue edema. IMPRESSION IMPRESSION: Normal x-rays [facility] Radiology Study observation (narrative) [facility] XR FOREARM RIGHTOrdered By: Arcenio Rodriguez on 05-30-2021 [facility] Work Phone: Provider Note - ED v2on 09-03 Provider Note - ED v2 Provider Note - ED v2: Chart Review: ED NOTES ED NOTES: ====HPI==== Patient is a 45-year-old female who presents to the emergency department with a chief complaint of itching all over. She reports that this has been ongoing for 3 days. She denies any new furniture. She denies any new products used. She denies anyone with anyone with similar symptoms. She denies any shortness of breath. She does state that her throat feels slightly itchy. No difficulty handling saliva. No chest pain. She has not taken any Benadryl. She states that her itching is worse after taking a warm shower. Social HX: Denies TOBACCO Denies ETOH Denies DRUGS ====Review of Systems==== 10 point system review is negative except for those specifically mentioned in history of present illness ====Physical Exam==== Constitutional/General: Alert and oriented x3, well appearing, nontoxic, and in NAD. Head: Normocephalic and atraumatic. Eyes: EOMI, conjunctive normal, sclera nonicteric, subconjunctival layer is pink. Mouth: No oropharyngeal swelling, Oropharynx clear, handling secretions, no trismus, no asymmetry of the posterior oropharynx or uvular edema Neck: Supple, full ROM, no stridor, no crepitus, no meningeal signs. Trachea at midline. Respiratory: Lungs clear to auscultation bilaterally, no wheezes, rales, or rhonchi, not in respiratory distress. Cardiovascular: Regular rate, regular rhythm, no murmurs, gallops, or rubs, 2+ distal pulses. Chest: normal chest wall movement Musculoskeletal: Moves all extremities x4, warm and well perfused, no clubbing, cyanosis, or edema, cap refill <3 seconds Integument: Skin warm and dry, excoriations noted. There are also noted urticaria. Neurologic: No focal deficits Psychiatric: Normal affect. ====ED Course and Medical Decision Making==== See MDM section for review of findings & plan of care. Portions of this note were dictated by speech recognition. An attempt at proof reading was made to minimize errors. Minor errors in head of business development may be present. Please call if questions.. HISTORY OF PRESENTING ILLNESS MARICARMEN is a 45 year old Female and was seen by me at 26-Sep-2020 00:09. Triage Information: Most recent Vital Sign Value Date PAST MEDICAL HISTORY ATTESTATION: I have reviewed and confirmed nurse's/medic's notes for patient's medications, allergies, and medical, surgical, family and social history ALLERGIES/INTOLERANCES: No Known Allergies HEALTH HISTORY: No documented data. OUTPATIENT MEDICATIONS: Home Medications Review Status for Reconciliation: N/A Med Status: Patient Currently Takes Medications Drug Name: Naprosyn 500 mg oral tablet Instructions: 1 tab(s) orally 2 times a day Drug Name: Flonase 50 mcg/inh nasal spray Instructions: 1 spray(s) intranasally once a day Drug Name: Loratadine-D 12 Hour oral tablet, extended release Instructions: 1 tab(s) orally every 12 hours Drug Name: aspirin 81 mg oral tablet, chewable Instructions: 1 tab(s) orally once a day Drug Name: omeprazole 40 mg oral delayed release capsule Instructions: 1 cap(s) orally 2 times a day Drug Name: Carafate 1 g oral tablet Instructions: 1 tab(s) orally 4 times a day (before meals and at bedtime) Drug Name: Maxzide-25 oral tablet Instructions: 1 tab(s) orally once a day SIGNIFICANT EVENTS: Past Medical History Description:hypertension Past Surgical History Description:B/L eye surgery Description:nasa surgery 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: Is : no Is : no CLINICAL IMPRESSION Diagnosis/Annotation: ED Dx Name:Contact dermatitis Code:L25.9 Disposition: discharged Type: home ATTESTATION CRITICAL CARE TIME Is this a critically ill patient: no Electronic Signatures: Barbara Perkins (PAC) (Signed 26-Sep-2020 00:21) Authored: ED Notes, HPI, PMH, Clinical Impression, Attestation, Chart Review, Scores Last Updated: 26-Sep-2020 00:21 by Barbara Perkins (RIKY) [facility] Triage - EDon 09-26-2020 Triage - ED Quick Triage: Are You no Have You Given In The Last 6 Weeksno Are You Currently Breastfeedingno The patient and/or guardian verbally acknowledges placement for services into the following (when Urgent Care Service hours are operating):emergency department Chart Review: ARRIVAL INFORMATION Mode of Arrival: private vehicle CHIEF COMPLAINT MARICARMEN BUNDY is a Female patient with a chief complaint of itching (pt reports itching over entire body for last 3 days, slight rash/hives noted to bilateral upper arms. pt denies new soaps, irritants, etc. denies SOB. 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 Triage Date/Time: 26-Sep-2020 00:13 DOREEN: 4 Vital Signs: Temperature: 98.0F ( 36.6C) taken oral Blood Pressure: 127/74 Mean: Heart Rate: 78 Respiratory Rate: 16 Pulse Oximetry: 98% on room air, no respiratory support. Height: 5 feet 7 inches. 170.1 CM Weight: 244.7 pounds. Calculated 111.0 kg. (stated) Calculated BMI (kg/m2): 38.363 Calculated BSA (m2) 2.29 [place] Coma Scale: Best Eye Response: (E4) spontaneous Best Motor Response: (M6) obeys commands Best Verbal Response: (V5) oriented Anabella Score: 15 Allergies: yes Patient has homicidal thoughts: no Symptoms Are POSITIVE For: itching. Symptoms Are Negative For: dyspnea, fever, blistering, headache, pain (describe), tingling and redness. Risk Screens Suicide Risk Screen In the Past Month: Have you wished you were or wished you could go to sleep and not wake up no In the Past Month: Have you had any actual thoughts of killing yourself no In Your Lifetime: Have you ever done anything, started to do anything, or prepared to do anything to end your life no Chandler Fall Scale Screening Has the patient fallen before (or is the patient in the ED as a result of a fall) has not had a fall Does the patient have an impaired gait does not have impaired gait Is the patient cognitively impaired not cognitively impaired Interventions: Chandler Fall Interventions: LOW INTERVENTIONS: *patient oriented to surroundings and call system, * patient/family falls education completed and documented, *patients fall status communicated during bedside handoff, *whiteboard updated, *mode of toileting discussed with patient, *bed in low position with brakes locked, *call light in reach, * non-skid footwear TRAVEL HISTORY Travel History Coronavirus Screening: no exposure or symptoms Travel Exposure History: NO travel to International locations in the past 30 days PAIN Pain Scale Used: SUE Past Medical History: Past Medical History Reviewedyes Electronic Signatures: Stella White (RN) (Signed 26-Sep-2020 00:15) Entered: Risk Screens, Pain, Travel History, Chart Review, Scores, Past Medical History Authored: Quick Triage, Risk Screens, Pain, Travel History, Chart Review, Scores, Past Medical History Last Updated: 26-Sep-2020 00:15 by Stella White (MERCEDES) [facility] CT HEAD WO CONTRASTon 2019 CT HEAD WO CONTRAST Patient Name: MARICARMEN BUNDY STUDY: CT HEAD WO CONTRAST; 03/06/2020 10:10 pm INDICATION: dizziness. COMPARISON: 08/01/2018 ACCESSION NUMBER(S): [id number] ORDERING CLINICIAN: KANDY RIVERO TECHNIQUE: Axial noncontrast CT images of the head. FINDINGS: BRAIN PARENCHYMA: Simpson-white matter interfaces are preserved. No mass effect or midline shift. HEMORRHAGE: No acute intracranial hemorrhage. VENTRICLES and EXTRA-AXIAL SPACES: Normal size. EXTRACRANIAL SOFT TISSUES: Within normal limits. PARANASAL SINUSES/MASTOIDS: Mucosal thickening in the maxillary sinuses. CALVARIUM: No depressed skull fracture. No destructive osseous lesion. OTHER FINDINGS: None. IMPRESSION: No acute intracranial abnormality. Electronically signed by: MICHAELA JULIO MD [facility] CBC AND DIFFERENTIALon 03-06 Basophils (Bld) [#/Vol] 0.10 10*3/uL Normal 0.00 - 0.10 [facility] Comment on above: Performed By: #### C BCDF #### [address] [address] Basophils/100 WBC (Bld) 1.2 % Normal 0.0 - 2.0 [facility] Comment on above: Performed By: #### C BCDF #### [address] [address] Eosinophils (Bld) [#/Vol] 0.10 10*3/uL Normal 0.00 - 0.70 [facility] Comment on above: Performed By: #### C BCDF #### [address] [address] Eosinophils/100 WBC (Bld) 1.7 % Normal 0.0 - 6.0 [facility] Comment on above: Performed By: #### C BCDF #### [address] [address] Erythrocyte distribution width (RBC) [Ratio] 14.3 % Normal 11.5 - 14.5 [facility] Comment on above: Performed By: #### C BCDF #### [address] [address] Hematocrit (Bld) [Volume fraction] 37.8 % Normal 36.0 - 46.0 [facility] Comment on above: Performed By: #### C BCDF #### [address] [address] Hemoglobin (Bld) [Mass/Vol] 12.3 g/dL Normal 12.0 - 16.0 [facility] Comment on above: Performed By: #### C BCDF #### [address] [address] Lymphocytes (Bld) [#/Vol] 2.20 10*3/uL Normal 1.20 - 4.80 [facility] Comment on above: Performed By: #### C BCDF #### [address] [address] Lymphocytes/100 WBC (Bld) 29.7 % Normal 13.0 - 44.0 [facility] Comment on above: Performed By: #### C BCDF #### [address] [address] MCHC (RBC) [Mass/Vol] 32.5 g/dL Normal 32.0 - 36.0 [facility] Comment on above: Performed By: #### C BCDF #### [address] [address] MCV (RBC) [Entitic vol] 87 fL Normal 80 - 100 [facility] Comment on above: Performed By: #### C BCDF #### [address] [address] Monocytes (Bld) [#/Vol] 0.40 10*3/uL Normal 0.10 - 1.00 [facility] Comment on above: Performed By: #### C BCDF #### [address] [address] Monocytes/100 WBC (Bld) 6.0 % Normal 2.0 - 10.0 [facility] Comment on above: Performed By: #### C BCDF #### [address] [address] Neutrophils (Bld) [#/Vol] 4.60 10*3/uL Normal 1.20 - 7.70 [facility] Comment on above: Result Comment: Perc ent differential counts (%) should be interpreted in the context of the absolute cell counts (cells/L). Performed By: #### C BCDF #### [address] [address] Neutrophils/100 WBC (Bld) 61.4 % Normal 40.0 - 80.0 [facility] Comment on above: Performed By: #### C BCDF #### [address] [address] NUCLEATED RBC 0.2 /100 WBC [facility] Comment on above: Performed By: #### C BCDF #### [address] [address] Platelets (Bld) [#/Vol] 296 10*3/uL Normal 150 - 450 [facility] Comment on above: Performed By: #### C BCDF #### [address] [address] RBC 4.37 x10E12/L Normal 4.00 - 5.20 [facility] Comment on above: Performed By: #### C BCDF #### [address] [address] WBC (Bld) [#/Vol] 7.4 10*3/uL Normal 4.4 - 11.3 [facility] Comment on above: Performed By: #### C BCDF #### [address] [address] CHEST 1 VIEWon 03-06-2020 CHEST 1 VIEW Patient Name: MARICARMEN BUNDY STUDY: CHEST 1 VIEW; 03/06/2020 7:30 pm INDICATION: weakness. COMPARISON: 07/01/2019 ACCESSION NUMBER(S): [id number] ORDERING CLINICIAN: KANDY RIVERO FINDINGS: CARDIOMEDIASTINAL SILHOUETTE: Cardiomediastinal silhouette is normal in size and configuration. LUNGS: No pulmonary consolidation, pleural effusion or pneumothorax. ABDOMEN: No remarkable upper abdominal findings. BONES: No acute osseous abnormality. IMPRESSION: No acute cardiopulmonary process. Electronically signed by: MICHAELA JULIO MD Normal [facility] COMPREHENSIVE PANELon 2019 Albumin [Mass/Vol] 3.6 g/dL Normal 3.4 - 5.0 [facility] Comment on above: Performed By: #### C MP #### [address] [address] ALP [Catalytic activity/Vol] 70 U/L Normal 33 - 110 [facility] Comment on above: Performed By: #### C MP #### [address] [address] ALT [Catalytic activity/Vol] 17 U/L Normal 7 - 45 [facility] Comment on above: Result Comment: Purvi ents treated with Sulfasalazine may generate falsely decreased results for ALT. Performed By: #### C MP #### [address] [address] Anion gap [Moles/Vol] 10 mmol/L Normal 10 - 20 [facility] Comment on above: Performed By: #### C MP #### [address] [address] AST [Catalytic activity/Vol] 17 U/L Normal 9 - 39 [facility] Comment on above: Performed By: #### C MP #### [address] [address] Bilirubin [Mass/Vol] 0.3 mg/dL Normal 0.0 - 1.2 [facility] Comment on above: Performed By: #### C MP #### [address] [address] Calcium [Mass/Vol] 8.9 mg/dL Normal 8.6 - 10.3 [facility] Comment on above: Performed By: #### C MP #### [address] [address] Chloride [Moles/Vol] 105 mmol/L Normal 98 - 107 [facility] Comment on above: Performed By: #### C MP #### [address] [address] Creatinine [Mass/Vol] 0.87 mg/dL Normal 0.50 - 1.05 [facility] Comment on above: Performed By: #### C MP #### [address] [address] GFR- AM. >60 Normal >60 [facility] Comment on above: Result Comment: CALC ULATIONS OF ESTIMATED GFR ARE PERFORMED USING THE MDRD STUDY EQUATION FOR THE IDMS-TRACEABLE CREATININE METHODS. CLIN CHEM 2007;53:766-72 Performed By: #### C MP #### [address] [address] GFR-NON AM. >60 Normal >60 [facility] Comment on above: Performed By: #### C MP #### [address] [address] Glucose [Mass/Vol] 108 mg/dL High 74 - 99 [facility] Comment on above: Performed By: #### C MP #### [address] [address] HCO3 (Bld) [Moles/Vol] 28 mmol/L Normal 21 - 32 [facility] Comment on above: Performed By: #### C MP #### [address] [address] Potassium [Moles/Vol] 3.9 mmol/L Normal 3.5 - 5.3 [facility] Comment on above: Performed By: #### C MP #### [address] [address] Protein [Mass/Vol] 6.9 g/dL Normal 6.4 - 8.2 [facility] Comment on above: Performed By: #### C MP #### [address] [address] Sodium [Moles/Vol] 139 mmol/L Normal 136 - 145 [facility] Comment on above: Performed By: #### C MP #### [address] [address] Urea nitrogen [Mass/Vol] 14 mg/dL Normal 6 - 23 [facility] Comment on above: Performed By: #### C MP #### [address] [address] HCG,URINEon 03-06-2020 Beta HCG ( test) Ql (U) Negative Normal Negative [facility] Comment on above: Performed By: #### H CGU #### [address] [address] MAGNESIUMon 03-06-2020 Magnesium [Mass/Vol] 2.16 mg/dL Normal 1.60 - 2.40 [facility] Comment on above: Performed By: #### M G #### [place] [id number] [place] [id number] Provider Note - ED v2on 12-0 Provider Note - ED v2 Provider Note - ED v2: Chart Review: ED NOTES ED NOTES: HPI: Patient states that for the last month she has had headache her arms and legs feel numb she is felt dizzy has had pain in the back of her head and feels as though her arms and legs are "rubbery". Patient was seen at [facility] January 27 for similar symptoms where she had a negative CTA head and neck and a negative MRI of the brain. Patient was followed up with ENT who prescribed meclizine with mild relief of symptoms. She denies any recent nausea vomiting fever or trauma. Patient initially had mild slurred speech but as my physical exam proceeded her speech cleared and she was talking normally by the end. ROS: All systems are negative other than as noted in HPI. Physical Exam I have reviewed the triage vital signs. Const: Well nourished, well developed, appears stated age, no acute distress Eyes: PERRL, EOM intact, no conjunctival injection, vision grossly normal HENT: Neck supple without meningismus , Moist mucous membranes, no pharyengeal swelling or exudate CV: Regular rate and rhythm, Warm, well-perfused extremities. Chest non tender RESP: Lungs clear bilaterally, Unlabored respiratory effort GI: soft, non-tender, non-distended, no masses : MSK: No gross deformities appreciated Back: Non tender, no pain with ROM Skin: Warm, dry. No rashes Neuro: Alert and oriented x4, GCS 15 , human relations manager II-XII grossly intact. Sensation and motor function of extremities grossly intact. Psych: Appropriate mood and affect. I have reviewed and confirmed nurses/medics notes for patient past, social and family history. Portions of this note were dictated by speech recognition. An attempt at proof reading was made to minimize errors. Minor errors in head of business development may be present. HISTORY OF PRESENTING ILLNESS MARICARMEN is a 44 year old Female and was seen by me at 06-Mar-2020 18:12 for a chief complaint of weakness (patient complains of dizziness for one month, states 1 week ago she started having bilateral facial numbness and generalized weakness, states "my body feels rubbery.")(1). Triage Information: Most recent Vital Sign Value Date Temp (F): 98.2 03-06-2020 16:50 Temp (C): 36.7 03-06-2020 16:50 Respirations (breaths/min): 16 03-06-2020 16:50 SpO2 (%): 98 03-06-2020 16:50 BP Systolic (mm Hg): 113 03-06-2020 16:50 BP Diastolic (mm Hg): 79 03-06-2020 16:50 PAST MEDICAL HISTORY ATTESTATION: I have reviewed and confirmed nurse's/medic's notes for patient's medications, allergies, medical history, and surgical history ALLERGIES/INTOLERANCES: No Known Allergies HEALTH HISTORY: No documented data. OUTPATIENT MEDICATIONS: Home Medications Review Status for Reconciliation: N/A Med Status: Patient Currently Takes Medications Drug Name: Naprosyn 500 mg oral tablet Instructions: 1 tab(s) orally 2 times a day Drug Name: Flonase 50 mcg/inh nasal spray Instructions: 1 spray(s) intranasally once a day Drug Name: Loratadine-D 12 Hour oral tablet, extended release Instructions: 1 tab(s) orally every 12 hours Drug Name: aspirin 81 mg oral tablet, chewable Instructions: 1 tab(s) orally once a day Drug Name: omeprazole 40 mg oral delayed release capsule Instructions: 1 cap(s) orally 2 times a day Drug Name: Carafate 1 g oral tablet Instructions: 1 tab(s) orally 4 times a day (before meals and at bedtime) Drug Name: Maxzide-25 oral tablet Instructions: 1 tab(s) orally once a day SIGNIFICANT EVENTS: Past Medical History Description:hypertension Past Surgical History Description:B/L eye surgery Description:nasa surgery 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: Is : no(1) Is : no(1) RESULTS/VITAL SIGNS RESULTS: Recent Lab Results: I have reviewed these laboratory results: Urine Test 06-Mar-2020 21:11:00 ResultValue HCG, Urine NEGATIVE Urinalysis 06-Mar-2020 21:11:00 ResultValue Color, Urine Yellow Reference Range: STRAW,YELLOW Appearance, Urine CLEAR Specific [place], Urine 1.020 pH, Urine 6.0 Protein, Urine NEGATIVE Glucose, Urine NEGATIVE Blood, Urine NEGATIVE Ketones, Urine NEGATIVE Bilirubin, Urine NEGATIVE Urobilinogen, Urine <2.0 Nitrite, Urine Negative Leukocyte Esterase, Urine NEGATIVE Complete Blood Count + Differential 06-Mar-2020 18:39:00 ResultValue White Blood Cell Count 7.4 Nucleated Erythrocyte Count 0.2 Red Blood Cell Count 4.37 HGB 12.3 HCT 37.8 MCV 87 MCHC 32.5 PLT 296 RDW-CV 14.3 Neutrophil % 61.4 Lymphocyte % 29.7 Monocyte % 6.0 Eosinophil % 1.7 Basophil % 1.2 Neutrophil Count 4.60 Lymphocyte Count 2.20 Monocyte Count 0.40 Eosinophil Count 0.10 Basophil Count 0.10 Comprehensive Metabolic Panel 06-Mar-2020 18:39:00 ResultValue Glucose, Serum 108 H NA 139 K 3.9 CL 105 Bicarbonate, Serum 28 Anion Gap, Serum 10 BUN 14 CREAT 0.87 GFR-No (more content not included)... [facility] Risk Screen - Adult Emergenc yon 03-06-2020 Risk Screen - Adult Emergency Preferred Language: Preferred Language: Preferred Language for Discussing Health Care (patient/designee)Belarusian Advanced Directives: Advance Directive/DNRno Advance Directive Information Givenpatient/family declined Family Violence Adult: Abuse Screen: Are you or have you been threatened or abused physically, emotionally, or sexually by anyoneno Learning Assessment (Patient): Learning Assessment (Patient): Patient is Able to be Assessed for Learningyes Factors Influencing Readiness to Learninterest in learning Factors that Impact Ability to Learnnone Devices/Methods Used to Communicatenone Learning Preferencesverbal instruction Cultural Considerationsnone Developmental Considerationsnone Confucianism Considerationsnone Learning Assessment (Other Learner): Learning Assessment (Other Learner): Other learner availableno Pressure Injury/TB/Substance: Pressure Injury: Pressure Injury Present on Admissionno Do you have a coughno Substance Use Current or Former Historynever: Cigarette/Tobacco, e-Cigarette/Vaping, Alcohol, Street Drugs Admission Risk Screen: Significant IndicatorsComplete CAGE: CAGE: Is this an injured patient at a Trauma Center ([facility]/[place]): no Electronic Signatures: Neelima Zheng (RN) (Signed 06-Mar-2020 16:57) Authored: Preferred Language, Advanced Directives, Family Violence Adult, Learning Assessment (Patient), Learning Assessment (Other Learner), Pressure Injury/TB/Substance, Pressure Injury, CAGE Last Updated: 06-Mar-2020 16:57 by Neelima Zheng (MERCEDES) [facility] TROPONIN Ion 03-06-2020 Troponin I.cardiac [Mass/Vol] ng/mL Normal 0.00 - 0.03 [facility] Comment on above: Result Comment: LESS THAN 0.04 NG/ML: NEGATIVE REPEAT TESTING IN THREE TO SIX HOURS IF CLINICALLY INDICATED. 0.04 - 0.5 NG/ML: CONSISTENT WITH POSSIBLE CARDIAC DAMAGE AND POSSIBLE INCREASED CLINICAL RISK. SERIAL MEASUREMENTS MAY HELP ASSESS EXTENT OF MYOCARDIAL DAMAGE. >0.5 NG/ML: CONSISTENT WITH CARDIAC DAMAGE, INCREASED CLINICAL RISK AND MYOCARDIAL INFARCTION. SERIAL MEASUREMENTS MAY HELP ASSESS EXTENT OF MYOCARDIAL DAMAGE. . Note: Troponin I testing is performed using different testing methodology at [facility] than at other [facility]. Direct result comparisons should only be made within the same method. Performed By: #### T ROP2 #### [place] [address] [place] [address] Triage - EDon 03-06-2020 Triage - ED Quick Triage: Are You no Have You Given In The Last 6 Weeksno Are You Currently Breastfeedingno Chart Review: PRIMARY ASSESSMENT MARICARMEN BUNDY's primary assessment is Within Defined Limits. The airway is open and patent. Breathing spontaneous and unlabored with clear breath sounds bilaterally. Circulation is normal with good peripheral pulses. Skin is warm and dry and color is normal for race. ARRIVAL INFORMATION Means of Arrival: wheelchair Mode of Arrival: private vehicle Arrival From: home Accompanied By: self Language: Spoken Language Preferred: Belarusian CHIEF COMPLAINT MARICARMEN BUNDY is a Female patient with a chief complaint of weakness (patient complains of dizziness for one month, states 1 week ago she started having bilateral facial numbness and generalized weakness, states "my body feels rubbery."). Triage Date/Time: 06-Mar-2020 16:50 Pain Rating (0-10): 8 = Severe Pain location: head Vital Signs: Temperature: 98.2F ( 36.7C) taken oral Blood Pressure: 113/79 Mean: Respiratory Rate: 16 Pulse Oximetry: 98% on room air, no respiratory support. Height: 5 feet 7.00 inches. 170.1 CM Weight: 251.3 pounds. Calculated 114.0 kg. (stated) Calculated BMI (kg/m2): 39.400 Calculated BSA (m2) 2.32 [place] Coma Scale: Best Eye Response: (E4) spontaneous Best Motor Response: (M6) obeys commands Best Verbal Response: (V5) oriented [place] Score: 15 Cough lasting greater than 3 weeks: no Allergies: no Mask applied: yes Last menstrual period: 25-Feb-2020 Patient has homicidal thoughts: no DOREEN: 3 Last Known Well: known Time Last Known Well Date/Time: 28-Feb-2020 Risk Screens Suicide Risk Screen In the Past Month: Have you wished you were or wished you could go to sleep and not wake up no In the Past Month: Have you had any actual thoughts of killing yourself no In Your Lifetime: Have you ever done anything, started to do anything, or prepared to do anything to end your life no Chandler Fall Scale Screening Has the patient fallen before (or is the patient in the ED as a result of a fall) has not had a fall Does the patient have an impaired gait does not have impaired gait Is the patient cognitively impaired not cognitively impaired Interventions: Chandler Fall Interventions: LOW INTERVENTIONS: *patient oriented to surroundings and call system, * patient/family falls education completed and documented, *patients fall status communicated during bedside handoff, *whiteboard updated, *mode of toileting discussed with patient, *bed in low position with brakes locked, *call light in reach, * non-skid footwear TRAVEL HISTORY Travel History Coronavirus Screening: no exposure or symptoms Travel Exposure History: NO travel to International locations in the past 30 days PAIN Pain Scale Used: SUE Pain Rating (0-10): 8 = Severe Past Medical History: Past Medical History Reviewedyes Electronic Signatures: Neelima Zheng (MERCEDES) (Signed 06-Mar-2020 16:55) Entered: Risk Screens, Pain, Arrival, ABCD, Travel History, Chart Review, Scores, Past Medical History Authored: Quick Triage, Risk Screens, Pain, Arrival, ABCD, Travel History, Chart Review, Scores, Past Medical History Last Updated: 06-Mar-2020 16:55 by Neelima Zheng (MERCEDES) [facility] URINALYSISon 03-06-2020 Appearance (U) CLEAR Normal CLEAR [facility] Comment on above: Performed By: #### U A ####[place] [address] Bilirubin Ql (U) Negative Normal NEGATIVE [facility] Comment on above: Performed By: #### U A ####[place] [address] Color (U) Yellow Normal STRAW,YELL OW [facility] Comment on above: Performed By: #### U A ####[place] [address] Glucose Ql (U) Negative Normal NEGATIVE [facility] Comment on above: Performed By: #### U A ####[place] [address] Hemoglobin Ql (U) Negative Normal NEGATIVE [facility] Comment on above: Performed By: #### U A ####[place] [address] Ketones Ql (U) Negative Normal NEGATIVE [facility] Comment on above: Performed By: #### U A ####[place] [address] Leukocyte esterase Test strip Ql (U) Negative Normal NEGATIVE [facility] Comment on above: Performed By: #### U A ####[place] [address] Nitrite Ql (U) Negative Normal NEGATIVE [facility] Comment on above: Performed By: #### U A ####[place] [address] pH (U) 6.0 [pH] Normal 5.0 - 8.0 [facility] Comment on above: Performed By: #### U A ####[place] [address] Protein Ql (U) Negative Normal NEGATIVE [facility] Comment on above: Performed By: #### U A ####[place] [address] Specific gravity (U) [Rel density] 1.020 Normal 1.005 - 1.035 [facility] Comment on above: Performed By: #### U A ####[place] [address] Urobilinogen (U) [Mass/Vol] mg/dL Normal 0.0 - 1.9 [facility] Comment on above: Performed By: #### U A ####[place] [id number] [place] [id number] CT ANGIO OF HEART W C STRUCT URE/MORPHon 12-18-2018 CT ANGIO OF HEART W C STRUCTURE/MORPH Patient Name: MARICARMEN BUNDY STUDY: CT ANGIO OF HEART W C STRUCTURE/MORPH; 12/18/2018 12:00 pm INDICATION: Chest Pain, Palpitations, Bradycardia, family history of ischemic heart disease, dizziness and giddiness. COMPARISON: Limited CT scan chest for coronary calcium scoring dated 10/30/2018 ACCESSION NUMBER(S): [id number] ORDERING CLINICIAN: DEE SALAS TECHNIQUE: Using multi-detector CT technology, axial, sequential imaging with prospective gating was performed of the chest following the intravenous administration of contrast material. A low-osmolar contrast agent was used (70 ml of Optiray 350). In addition, CT-FFR analysis was also performed. A single dose of 5 mg of intravenous metoprolol was initially given for heart rate control. Following this, the blood pressure became too unstable and low to administer nitroglycerin (96/50 mm of mercury). Therefore, the examination was done without sublingual nitroglycerin. For optimization of anatomic evaluation, multiplanar reconstruction, maximum intensity projections, and advanced 3-D off-line postprocessing were performed on a dedicated stand-alone workstation under the direct supervision of the interpreting physician. CT Dose-Length Product (DLP): 429.9 mGy/cm CT Dose Reduction Employed: Yes (Prospective triggering, iterative reconstruction) FINDINGS: POTENTIAL STUDY LIMITATIONS: None. CORONARY ARTERIES: CORONARY ANATOMY: There is normal origin of the coronary arteries. LEFT MAIN CORONARY ARTERY: The left main is normal sized vessel that bifurcates into the LAD and circumflex. There is no significant atherosclerotic change or stenotic disease. LEFT ANTERIOR DESCENDING ARTERY: The LAD is a normal size vessel that wraps around the apex. It gives rise to 2 acute diagonal branches. There is no significant atherosclerotic change or stenotic disease. Please note that, distal-most LAD suboptimally evaluated because of small caliber in absence of nitroglycerin. LEFT CIRCUMFLEX ARTERY: The LCX is a normal size vessel, which is non-dominant. It gives rise to 2 obtuse marginal branches. There is no significant atherosclerotic change or stenotic disease. RIGHT CORONARY ARTERY: The RCA is a normal size vessel, which is dominant . It gives rise to a 2 acute marginal branches. In its distal segment it bifurcates into the PDA and PV branch. There is no significant atherosclerotic change or stenotic disease. Please note that, distal most RCA and terminal branches are suboptimally evaluated because of small caliber in absence of nitroglycerin. CARDIAC CHAMBERS: The cardiac chambers demonstrate normal atrioventricular and ventriculoarterial concordance, and systemic and pulmonary venous return. LEFT ATRIUM: Mildly dilated (25-cm2) RIGHT ATRIUM: Normal size (14-cm2) INTERATRIAL SEPTUM: Intact. LEFT VENTRICLE: Normal size (4.4-cm) RIGHT VENTRICLE: Normal size (3.4-cm) AORTIC VALVE: The aortic valve is trileaflet in morphology. No calcifications. MITRAL VALVE: No thickening/calcification. THORACIC AORTA: The visualized thoracic aorta is normal in course, caliber, and contour. There is no acute aortic pathology, such as dissection, intramural hematoma, or contained rupture. The aortic arch is not included on this examination. PERICARDIUM: There is no pericardial effusion of thickening. CHEST: The chest wall is normal. No significant lymphadenopathy or mass is seen in limited images of the mediastinum. Limited imaging through the lungs reveals no gross abnormalities. No pleural effusion or pneumothorax. UPPER ABDOMEN: Limited imaging through the upper abdomen reveals no abnormalities of the visualized organs. IMPRESSION: 1. Within limitation from absence of nitroglycerin administration, there is no evidence of atherosclerotic changes or stenotic disease. 2. Normal coronary artery anatomy. 3. Mild left atrial enlargement. Electronically signed by: PATRIZIA CHATMAN MD Normal [facility] Clinical Event Note-CT Coron aryon 12-18-2018 Clinical Event Note-CT Coronary Event: Topic: CT Coronary Details: Patient for CT coronary for intermittent chest pain. Denies chest pain today. 18 gauge IV started in the left AC for exam per protocol. Medications and allergies reviewed. Cardiac monitoring initiated. Contacted radiologist to discuss HR and blood pressure. One dose of metoprolol given per orders. Nitro not give due to low unstable and fluctuating blood pressure. Radiologist aware. Scan completed, reviewed by physician and patient discharged to [facility] Electronic Signatures: Sammie Barker) (Signed 18-Dec-2018 12:11) Authored: Event Last Updated: 18-Dec-2018 12:11 by Sammie Barker) Normal [facility] Otheron 12-18-2018 Interpreted by: COMPA12/18/18 12:58MRN: [id number] Name: MARICARMEN BUNDY STUDY:CT ANGIO OF HEART W C STRUCTURE/MORPH; 12/18/2018 12:00 pm INDICATION:Chest Pain, Palpitations, Bradycardia, family history of ischemicheart disease, dizziness and giddiness. COMPARISON:Limited CT scan chest for coronary calcium scoring dated 10/30/2018 ORDERING CLINICIAN:DEE SALAS TECHNIQUE:Using multi-detector CT technology, axial, sequential imaging withprospective gating was performed of the chest following theintravenous administration of contrast material. A low-osmolarcontrast agent was used (70 ml of Optiray 350). In addition, CT-FFRanalysis was also performed. A single dose of 5 mg of intravenous metoprolol was initially givenfor heart rate control. Following this, the blood pressure became toounstable and low to administer nitroglycerin (96/50 mm of mercury).Therefore, the examination was done without sublingual nitroglycerin. For optimization of anatomic evaluation, multiplanar reconstruction,maximum intensity projections, and advanced 3-D off-linepostprocessing were performed on a dedicated stand-alone workstationunder the direct supervision of the interpreting physician. CT Dose-Length Product (DLP): 429.9 mGy/cmCT Dose Reduction Employed: Yes (Prospective triggering, iterativereconstruction) FINDINGS:POTENTIAL STUDY LIMITATIONS: None. CORONARY ARTERIES: CORONARY ANATOMY:There is normal origin of the coronary arteries. LEFT MAIN CORONARY ARTERY:The left main is normal sized vessel that bifurcates into the LAD andcircumflex.There is no significant atherosclerotic change or stenotic disease. LEFT ANTERIOR DESCENDING ARTERY:The LAD is a normal size vessel that wraps around the apex.It gives rise to 2 acute diagonal branches.There is no significant atherosclerotic change or stenotic disease.Please note that, distal-most LAD suboptimally evaluated because ofsmall caliber in absence of nitroglycerin. LEFT CIRCUMFLEX ARTERY:The LCX is a normal size vessel, which is non-dominant.It gives rise to 2 obtuse marginal branches.There is no significant atherosclerotic change or stenotic disease. RIGHT CORONARY ARTERY:The RCA is a normal size vessel, which is dominant .It gives rise to a 2 acute marginal branches. In its distal segmentit bifurcates into the PDA and PV branch.There is no significant atherosclerotic change or stenotic disease.Please note that, distal most RCA and terminal branches aresuboptimally evaluated because of small caliber in absence ofnitroglycerin. CARDIAC CHAMBERS:The cardiac chambers demonstrate normal atrioventricular andventriculoarterial concordance, and systemic and pulmonary venousreturn. LEFT ATRIUM:Mildly dilated (25-cm2) RIGHT ATRIUM:Normal size (14-cm2) INTERATRIAL SEPTUM:Intact. LEFT VENTRICLE:Normal size (4.4-cm) RIGHT VENTRICLE:Normal size (3.4-cm) AORTIC VALVE:The aortic valve is trileaflet in morphology. No calcifications. MITRAL VALVE:No thickening/calcification. THORACIC AORTA:The visualized thoracic aorta is normal in course, caliber, andcontour.There is no acute aortic pathology, such as dissection, intramuralhematoma, or contained rupture.The aortic arch is not included on this examination. PERICARDIUM:There is no pericardial effusion of thickening. CHEST:The chest wall is normal.No significant lymphadenopathy or mass is seen in limited images ofthe mediastinum.Limited imaging through the lungs reveals no gross abnormalities.No pleural effusion or pneumothorax. UPPER ABDOMEN:Limited imaging through the upper abdomen reveals no abnormalities ofthe visualized organs. IMPRESSION:1. Within limitation from absence of nitroglycerin administration,there is no evidence of atherosclerotic changes or stenotic disease.2. Normal coronary artery anatomy.3. Mild left atrial enlargement. Electronically signed by: COMPA 12/18/18 12:58 Normal -Cardiology- [address] Work Phone: VASC LAB Abdominal Aorta/Lisset ac/IVC Ultraon 11-27-2018 VASC LAB Abdominal Aorta/Iliac/IVC Ultra [facility] [address] [place] [address], [address] [address] and Vascular Lab Report Lower Venous Duplex Ultrasound Patient Name: MARICARMEN Geronimo Physician: [id number] Kalia BUNDY MD Study Date: 11/27/2018 Referring Dee Salas MD Physician: MRN/PID: [id number] PCP: Accession/Order#: [id number] CC Report to: Date of : 1975 Technologist: Michaela Reagan RVT, RDMS Gender: F Technologist 2: Admission Status: Inpatient Location Performed: [facility] 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 The common iliac veins, external iliac veins and common femoral veins.appear to be patent . There is spontaneous and phasic flow noted throughout. The left distal external iliac /CFV and [employer] appear somewhat tortuous, however normal flow noted. Imaging & Doppler Findings: [id number] Kalia Hunt MD Final Normal [facility] LETICIA Teston 11-22-2018 LETICIA Test Negative Normal Negative [facility] Comment on above: Performed By: #### 2 [id number] #### [facility] [address] [place] [address] US Abdomen, Limitedon 2018 US Abdomen, Limited Exam Date/Time: 11/21/2018 07:57 EDT Reason for Exam: RIGHT UPPER QUAD PAIN DYSPEPSIA ABDOMINAL BLOATING;RUQ Pain Report STUDY: US Abdomen, Limited 11/21/2018 7:57 am INDICATION: 43 y/o F with RUQ Pain. COMPARISON: None. ACCESSION NUMBER(S): [id number] ORDERING CLINICIAN: Ham Reed TECHNIQUE: Routine ultrasound of the right upper quadrant was performed. Static images were obtained for remote interpretation. FINDINGS: LIVER: The hepatic parenchyma is coarsened and hyperechoic. Liver is normal in size, measuring up to 16.0 cm in sagittal dimension. No focal intrahepatic mass lesion is identified on the provided images. BILE DUCTS: No intrahepatic biliary dilatation. Common bile duct is within normal limits, measuring 3 mm in diameter. GALLBLADDER: No gallbladder wall thickening or pericholecystic fluid is observed. Gallbladder is only partially distended and contains a 3.4 cm gallstone. PANCREAS: The pancreas is inadequately evaluated secondary to significant shadowing from overlying bowel gas. RIGHT KIDNEY: Visible portions of the right kidney appears sonographically unremarkable. PERITONEAL FLUID: None seen in the right upper quadrant. IMPRESSION: Coarsened and hyperechoic hepatic parenchyma, compatible with steatosis or hepatocellular disease. Exam Date/Time: 11/21/2018 07:57 EDT Report Cholelithiasis. FINAL REPORT Dictated: 11/21/2018 8:42 am Shashank Siegel MD Signed (Electronic Signature): 11/21/2018 8:42 am Signed by: Shashank Siegel MD Technologist: INGRID [facility] CT Coronary Artery Calcium S core - ERIAKon 10-31-2018 Calcium [Mass/Vol] Exam Date/Time: 10/30/2018 09:21 EDT Reason for Exam: SCREENING FOR HEART DISEASE FAMILY HX HEART DISEASE;Screening Report STUDY: CT Coronary Artery Calcium Score - STEFANIEChelsea; 10/30/2018 9:21 am INDICATION: Screening. COMPARISON: None. ACCESSION NUMBER(S): [id number] ORDERING CLINICIAN: Alivia Nieves TECHNIQUE: Using prospective ECG gating, CT scan of the coronary arteries was performed without intravenous contrast. Coronary calcium scoring was performed according to the method of Agatston. FINDINGS: The score and distribution of calcium in the coronary arteries is as follows: LM 0, LAD 0, LCx 0, RCA 0, Total 0 The visualized mid/lower ascending thoracic aorta measures 3.3 cm in diameter. The visualized descending thoracic aorta is within normal limits for course and caliber. The heart is within normal limits for size. No pericardial effusion is present. No gross mediastinal lymphadenopathy is identified. There is no focal infiltrate, pleural effusion or pneumothorax identified. No discrete pulmonary nodules or masses are seen within the visualized lungs. IMPRESSION: 1. Coronary artery calcium score of 0, which places the patient in the low risk category, as below. Coronary artery calcium scoring may be helpful in predicting the risk for future coronary heart disease events. According to the [employer] Clinical Expert Consensus Task Force, such testing provides important prognostic information in patients with more than one coronary heart disease risk factor. The coronary artery calcium score correlates with the annual risk of a non-fatal myocardial infarction or coronary heart disease . Exam Date/Time: 10/30/2018 09:21 EDT Report Coronary artery score Annual Risk 0-99 0.4% 100-399 1.3% >400 2.4% These three "breakpoints" correspond to lower, intermediate and high risk states for future coronary events. Such information should be used, along with appropriate clinical judgment, to make decisions regarding the intensity of risk factor management strategies to treat blood lipids and to modify other non-lipid coronary risk factors. Reference: [place] P et al. Circulation. 2007; 115:402-426 FINAL REPORT Dictated: 10/31/2018 10:48 am Hector Reynolds MD Signed (Electronic Signature): 10/31/2018 10:48 am Signed by: Hector Reynolds MD Technologist: RONEL Normal [facility] BUNon 10-24-2018 Urea nitrogen [Mass/Vol] 15 mg/dL Normal 09-24 [facility] Comment on above: Performed By: #### 2 [id number] #### [facility] [place] [address] Creatinineon 10-24-2018 Creatinine [Mass/Vol] 0.6 mg/dL Normal 0.5-1.1 [facility] Comment on above: Performed By: #### 2 [id number] #### [facility] [place] [address] eGFRon 10-24-2018 GFR/1.73 sq M predicted among non-blacks MDRD (S/P/Bld) [Vol rate/Area] mL/min/{1.73_m2} Normal [facility] Comment on above: Order Comment: Order added by Discern Expert. Performed By: #### 2 024019 #### [facility] [address] [place] [address] Auto Diffon 08-03-2018 Basophils (Bld) [#/Vol] 0.0 E3/mcL Normal 0.0-0.2 [facility] Comment on above: Order Comment: Order Added by Discern Expert. Performed By: #### 2 [id number] #### [facility] [address] [place] [address] Basophils/100 WBC (Bld) 0.5 % Normal 0.0-2.0 [facility] Comment on above: Order Comment: Order Added by Discern Expert. Performed By: #### 2 358611 #### [facility] [address] [place] [address] Eos Absolute 0.1 E3/mcL Normal 0.0-0.7 [facility] Comment on above: Order Comment: Order Added by Discern Expert. Performed By: #### 2 633382 #### [facility] [address] [place] [address] Eosinophils/100 WBC (Bld) 1.5 % Normal 0.0-11.0 [facility] Comment on above: Order Comment: Order Added by Discern Expert. Performed By: #### 2 145496 #### [facility] [address] [place] [address] Lymphocytes (Bld) [#/Vol] 1.7 E3/mcL Normal 1.2-3.4 [facility] Comment on above: Order Comment: Order Added by Discern Expert. Performed By: #### 2 036783 #### [facility] [address] [place] [address] Lymphocytes/100 WBC (Bld) 33.6 % Normal 20.0-55.0 [facility] Comment on above: Order Comment: Order Added by Discern Expert. Performed By: #### 2 702913 #### [facility] [address] [place] [address] Motley Absolute 0.3 E3/mcL Normal 0.0-0.7 [facility] Comment on above: Order Comment: Order Added by Discern Expert. Performed By: #### 2 546426 #### [facility] [address] [place] [address] Monocytes/100 WBC (Bld) 5.5 % Normal 0.0-10.0 [facility] Comment on above: Order Comment: Order Added by Discern Expert. Performed By: #### 2 882584 #### [facility] [address] [place] [address] Neutro Absolute 2.9 E3/mcL Normal 1.4-6.5 [facility] Comment on above: Order Comment: Order Added by Discern Expert. Performed By: #### 2 318990 #### [facility] [address] [place] [address] Neutro Auto 58.9 % Normal 37.0-75.0 [facility] Comment on above: Order Comment: Order Added by Discern Expert. Performed By: #### 2 940665 #### [facility] [address] [place] [address] BMPon 08-03-2018 Anion gap [Moles/Vol] 9 mmol/L Low 10-20 [facility] Comment on above: Performed By: #### 2 925343 #### [facility] [address] [place] [address] Calcium [Mass/Vol] 8.2 mg/dL Low 8.6-10.3 [facility] Comment on above: Performed By: #### 2 588000 #### [facility] [address] [place] [address] Chloride [Moles/Vol] 109 mmol/L High 98-107 [facility] Comment on above: Performed By: #### 2 352075 #### [facility] [address] [place] [address] CO2 [Moles/Vol] 24.0 mmol/L Normal 21.0-32.0 [facility] Comment on above: Performed By: #### 2 801729 #### [facility] [address] [place] [address] Creatinine [Mass/Vol] 0.6 mg/dL Normal 0.5-1.1 [facility] Comment on above: Performed By: #### 2 025184 #### [facility] [address] [place] [address] Glucose [Mass/Vol] 99 mg/dL Normal 70-99 [facility] Comment on above: Performed By: #### 2 155211 #### [facility] [address] [place] [address] Potassium [Moles/Vol] 3.8 mmol/L Normal 3.5-5.3 [facility] Comment on above: Performed By: #### 2 468267 #### [facility] [address] [place] [address] Sodium [Moles/Vol] 138 mmol/L Normal 136-145 [facility] Comment on above: Performed By: #### 2 643817 #### [facility] [place] [address] Urea nitrogen [Mass/Vol] 11 mg/dL Normal 6-23 [facility] Comment on above: Performed By: #### 2 754601 #### [facility] [place] [address] Urea nitrogen/Creatinine [Mass ratio] 18.3 ratio Normal 5.4-30.0 [facility] Comment on above: Performed By: #### 2 585907 #### [facility] [place] [address] CBC w/ Auto Diffon 9 Erythrocyte distribution width (RBC) [Ratio] 14.6 % High 11.5-14.5 [facility] Comment on above: Performed By: #### 2 817505 #### [facility] [place] [address] Hematocrit (Bld) [Volume fraction] 34.0 % Low 36.0-48.0 [facility] Comment on above: Performed By: #### 2 898118 #### IVAN Laz[facility] [address] [place] [address] Hemoglobin (Bld) [Mass/Vol] 11.1 g/dL Low 12.0-16.0 [facility] Comment on above: Performed By: #### 2 856251 #### [facility] [place] [address] MCH (RBC) [Entitic mass] 28.5 pg Normal 27.0-31.0 [facility] Comment on above: Performed By: #### 2 106727 #### IV[facility] [address] [place] [address] MCHC (RBC) [Mass/Vol] 32.5 g/dL Low 33.0-37.0 [facility] Comment on above: Performed By: #### 2 927315 #### [facility] [address] [place] [address] MCV (RBC) [Entitic vol] 87.6 fL Normal 78.0-100.0 [facility] Comment on above: Performed By: #### 2 476416 #### IVAN [facility]ica[facility] [address] [place] [address] Platelet mean volume (Bld) [Entitic vol] 8.9 fL Normal 7.4-11.0 [facility] Comment on above: Performed By: #### 2 229286 #### IVANSharri [facility]ing[facility] [address] [place] [address] Platelets (Bld) [#/Vol] 216 E3/mcL Normal 130-400 [facility] Comment on above: Performed By: #### 2 966758 #### [facility] [place] [address] RBC (Bld) [#/Vol] 3.88 E6/mcL Low 3.90-5.40 [facility] Comment on above: Performed By: #### 2 132378 #### [facility] [address] [place] [address] WBC (Bld) [#/Vol] 5.0 E3/mcL Normal 3.6-11.0 [facility] Comment on above: Performed By: #### 2 607437 #### IVNA AngelicaHemo [address] [place] [address] [id number] 08-03-2018 HbA1c (Bld) [Mass fraction] 5.3 % Normal 4.0-6.3 [facility] Comment on above: Performed By: #### 2 207496 #### [facility] [address] [place] [address] Lipid Profileon 08-03-2018 Cholesterol [Mass/Vol] 115 mg/dL Normal 0-199 [facility] Comment on above: Performed By: #### 2 250498 #### [facility] [place] [address] Cholesterol in HDL [Mass/Vol] 35 mg/dL Low 40-60 [facility] Comment on above: Performed By: #### 2 556898 #### [facility] [address] [place] [address] Cholesterol in LDL [Mass/Vol] 63 mg/dL Normal 0-130 [facility] Comment on above: Performed By: #### 2 366518 #### [facility] [place] [address] Cholesterol in VLDL [Mass/Vol] 17 mg/dL Normal 0-40 [facility] Comment on above: Performed By: #### 2 758174 #### [facility] [place] [address] Triglyceride [Mass/Vol] 87 mg/dL Normal 0-149 [facility] Comment on above: Result Comment: AGE DESIRABLE BORDERLINE HIGH 91 D - 9 Y 0 - 74 75 - 99 > 100 10 - 19 Y 0 - 89 90 - 129 > 130 20 - 24 Y 0 - 114 115 - 149 > 150 > 25 0 - 149 150 - 199 200 - 499 Performed By: #### 2 [id number] #### [facility] [place] [address] Magnesiumon 08-03-2018 Magnesium [Mass/Vol] 2.0 mg/dL Normal 1.6-2.4 [facility] Comment on above: Performed By: #### 2 129243 #### [facility] [address] [place] [address] NM Myocardial Spect Multi Re st/Stresson 08-03-2018 NM Myocardial Spect Multi Rest/Stress Exam Date/Time: 08/03/2018 11:07 EDT Reason for Exam: Chest pain Report STUDY: NM Myocardial Spect Multi Rest/Stress; 08/03/2018 11:07 am INDICATION: Chest pain. COMPARISON: None. ACCESSION NUMBER(S): [id number] ORDERING CLINICIAN: Deonna Arana TECHNIQUE: DIVISION OF NUCLEAR MEDICINE STRESS MYOCARDIAL PERFUSION SCAN, ONE DAY PROTOCOL The patient received an intravenous dose of 12.0 mCi of Tc-99m Myoview and resting emission tomographic (SPECT) images of the myocardium were acquired. The patient then exercised via treadmill stress to 85 % of MPHR and achieved 11.5 METS. At peak stress 33.2 mCi of Tc-99m Myoview were administered and stress phase SPECT images of the myocardium were then acquired. These included ECG-gated images to assess and quantify ventricular function. FINDINGS: Both stress and rest images demonstrate grossly normal perfusion throughout the left ventricle. The left ventricle is normal in size. Gated images demonstrate normal LV wall motion with an LV EF estimated at 62%. IMPRESSION: 1. Normal myocardial perfusion study without evidence of ischemia or prior infarction. 2. The left ventricle is normal in size. 3. Normal LV wall motion with the LV EF estimated at 62%. I personally reviewed the images/study and I agree with the findings as stated. This study was interpreted at [facility], [place], [place]. FINAL REPORT Dictated: 08/03/2018 11:36 am Garry Hart MD Signed (Electronic Signature): 08/03/2018 11:36 am Signed by: Garry Hart MD Technologist: LISA Normal [facility] eGFRon 08-03-2018 GFR/1.73 sq M predicted among non-blacks MDRD (S/P/Bld) [Vol rate/Area] mL/min/{1.73_m2} Normal [facility] Comment on above: Order Comment: Order Added by Discern Expert. Performed By: #### 2 586608 #### [facility] [address] [place] [address] Auto Diffon 08-02-2018 Basophils (Bld) [#/Vol] 0.0 E3/mcL Normal 0.0-0.2 [facility] Comment on above: Order Comment: Order Added by Po Expert. Performed By: #### 2 794068 #### [facility] [address] [place] [address] Basophils/100 WBC (Bld) 0.5 % Normal 0.0-2.0 [facility] Comment on above: Order Comment: Order Added by Discern Expert. Performed By: #### 2 200495 #### [facility] [address] [place] [address] Eos Absolute 0.1 E3/mcL Normal 0.0-0.7 [facility] Comment on above: Order Comment: Order Added by Discern Expert. Performed By: #### 2 732272 #### [facility] [address] [place] [address] Eosinophils/100 WBC (Bld) 1.5 % Normal 0.0-11.0 [facility] Comment on above: Order Comment: Order Added by Discern Expert. Performed By: #### 2 445140 #### [facility] [address] [place] [address] Lymphocytes (Bld) [#/Vol] 1.8 E3/mcL Normal 1.2-3.4 [facility] Comment on above: Order Comment: Order Added by Discern Expert. Performed By: #### 2 108591 #### [facility] [address] [place], [place] [address] Lymphocytes/100 WBC (Bld) 33.2 % Normal 20.0-55.0 [facility] Comment on above: Order Comment: Order Added by Discern Expert. Performed By: #### 2 859214 #### IVAN [facility] [address] [place] [address] Motley Absolute 0.3 E3/mcL Normal 0.0-0.7 [facility] Comment on above: Order Comment: Order Added by Discern Expert. Performed By: #### 2 363475 #### [facility]AN [facility] [address] [place] [address] Monocytes/100 WBC (Bld) 6.4 % Normal 0.0-10.0 [facility] Comment on above: Order Comment: Order Added by Discern Expert. Performed By: #### 2 139061 #### [facility] [address] [place] [address] Neutro Absolute 3.2 E3/mcL Normal 1.4-6.5 [facility] Comment on above: Order Comment: Order Added by Discern Expert. Performed By: #### 2 133186 #### [facility] [address] [place] [address] Neutro Auto 58.4 % Normal 37.0-75.0 [facility] Comment on above: Order Comment: Order Added by Discern Expert. Performed By: #### 2 327675 #### [facility] [address] [place] [address] BMPon 08-02-2018 Anion gap [Moles/Vol] 8 mmol/L Low 10-20 [facility] Comment on above: Performed By: #### 2 625957 #### IVAN AngelicaHemo [address] [place] [address] Calcium [Mass/Vol] 7.9 mg/dL Low 8.6-10.3 [facility] Comment on above: Performed By: #### 2 468175 #### IVAN [facility] [address] [place] [address] Chloride [Moles/Vol] 108 mmol/L High 98-107 [facility] Comment on above: Performed By: #### 2 178147 #### IVAN [facility] [address] [place] [address] CO2 [Moles/Vol] 26.0 mmol/L Normal 21.0-32.0 [facility] Comment on above: Performed By: #### 2 473522 #### IVAN [facility]uezHemo [address] [place] [address] Creatinine [Mass/Vol] 0.6 mg/dL Normal 0.5-1.1 [facility] Comment on above: Performed By: #### 2 737081 #### [facility] [address] [place] [address] Glucose [Mass/Vol] 98 mg/dL Normal 70-99 [facility] Comment on above: Performed By: #### 2 447878 #### IVAN [facility] [address] [place] [address] Potassium [Moles/Vol] 3.7 mmol/L Normal 3.5-5.3 [facility] Comment on above: Performed By: #### 2 138030 #### IVAN [facility] [address] [place] [address] Sodium [Moles/Vol] 138 mmol/L Normal 136-145 [facility] Comment on above: Performed By: #### 2 316422 #### [facility] [address] [place] [address] Urea nitrogen [Mass/Vol] 11 mg/dL Normal 6-23 [facility] Comment on above: Performed By: #### 2 664620 #### [facility] [address] [place] [address] Urea nitrogen/Creatinine [Mass ratio] 18.3 ratio Normal 5.4-30.0 [facility] Comment on above: Performed By: #### 2 926485 #### [facility] [address] [place] [address] CBC w/ Auto Diffon Erythrocyte distribution width (RBC) [Ratio] 14.8 % High 11.5-14.5 [facility] Comment on above: Performed By: #### 2 786674 #### [facility] [address] [place] [address] Hematocrit (Bld) [Volume fraction] 33.0 % Low 36.0-48.0 [facility] Comment on above: Performed By: #### 2 790558 #### [facility]AN [facility] [address] [place] [address] Hemoglobin (Bld) [Mass/Vol] 10.8 g/dL Low 12.0-16.0 [facility] Comment on above: Performed By: #### 2 158732 #### [facility] [place] [address] MCH (RBC) [Entitic mass] 28.5 pg Normal 27.0-31.0 [facility] Comment on above: Performed By: #### 2 114118 #### IVAN [facility] [address] [place] [address] MCHC (RBC) [Mass/Vol] 32.6 g/dL Low 33.0-37.0 [facility] Comment on above: Performed By: #### 2 747855 #### IVAN DominguezHemo [address] [place] [address] MCV (RBC) [Entitic vol] 87.3 fL Normal 78.0-100.0 [facility] Comment on above: Performed By: #### 2 393962 #### IVAN [facility] [address] [place] [address] Platelet mean volume (Bld) [Entitic vol] 8.8 fL Normal 7.4-11.0 [facility] Comment on above: Performed By: #### 2 848386 #### IVAN [facility] [address] [place] [address] Platelets (Bld) [#/Vol] 226 E3/mcL Normal 130-400 [facility] Comment on above: Performed By: #### 2 841326 #### IVAN [facility] [address] [place] [address] RBC (Bld) [#/Vol] 3.78 E6/mcL Low 3.90-5.40 [facility] Comment on above: Performed By: #### 2 459920 #### IVAN DominguezHemo [address] [place] [address] WBC (Bld) [#/Vol] 5.4 E3/mcL Normal 3.6-11.0 [facility] Comment on above: Performed By: #### 2 045366 #### IVAN Rem[facility] [address] [place] [address] eGFRon 08-02-2018 GFR/1.73 sq M predicted among non-blacks MDRD (S/P/Bld) [Vol rate/Area] mL/min/{1.73_m2} Normal [facility] Comment on above: Order Comment: Order Added by Discern Expert. Performed By: #### 2 943636 #### IVAN [facility] [address] [place] [address] Auto Diffon 08-01-2018 Basophils (Bld) [#/Vol] 0.0 E3/mcL Normal 0.0-0.2 [facility] Comment on above: Order Comment: Order Added by Discern Expert. Performed By: #### 2 473095 #### IVAN [facility] [address] [place] [address] Basophils/100 WBC (Bld) 0.7 % Normal 0.0-2.0 [facility] Comment on above: Order Comment: Order Added by Discern Expert. Performed By: #### 2 642551 #### IVAN [facility] [address] [place] [address] Eos Absolute 0.0 E3/mcL Normal 0.0-0.7 [facility] Comment on above: Order Comment: Order Added by Discern Expert. Performed By: #### 2 [id number] #### IVAN RemHemo [address] [place] [address] Eosinophils/100 WBC (Bld) 0.6 % Normal 0.0-11.0 [facility] Comment on above: Order Comment: Order Added by Discern Expert. Performed By: #### 2 202309 #### IVAN DominguezHemo [address] [place] [address] Lymphocytes (Bld) [#/Vol] 1.4 E3/mcL Normal 1.2-3.4 [facility] Comment on above: Order Comment: Order Added by Discern Expert. Performed By: #### 2 893931 #### IVAN DominguezHemo [address] [place], [place] [id number] Lymphocytes/100 WBC (Bld) 23.3 % Normal 20.0-55.0 [facility] Comment on above: Order Comment: Order Added by Discern Expert. Performed By: #### 2 586433 #### IVAN DominguezHemo [address] [place], [place] [address] Motley Absolute 0.4 E3/mcL Normal 0.0-0.7 [facility] Comment on above: Order Comment: Order Added by Discern Expert. Performed By: #### 2 147352 #### IVAN DominguezHemo [address] [place], [place] [address] Monocytes/100 WBC (Bld) 6.3 % Normal 0.0-10.0 [facility] Comment on above: Order Comment: Order Added by Discern Expert. Performed By: #### 2 130958 #### IVAN DominguezHemo [address] [place], [place] [id number] Neutro Absolute 4.1 E3/mcL Normal 1.4-6.5 [facility] Comment on above: Order Comment: Order Added by Discern Expert. Performed By: #### 2 745099 #### IVAN DominguezHemo [address] [place], [place] [address] Neutro Auto 69.1 % Normal 37.0-75.0 [facility] Comment on above: Order Comment: Order Added by Discern Expert. Performed By: #### 2 382662 #### IVAN DominguezHemo [address] [place] [address] BMPon 08-01-2018 Anion gap [Moles/Vol] 11 mmol/L Normal 10-20 [facility] Comment on above: Performed By: #### 2 259414 #### IVAN DominguezHemo [address] [place] [address] Calcium [Mass/Vol] 8.9 mg/dL Normal 8.6-10.3 [facility] Comment on above: Performed By: #### 2 319613 #### IVAN DominguezHemo [address] [place] [address] Chloride [Moles/Vol] 108 mmol/L High 98-107 [facility] Comment on above: Performed By: #### 2 783683 #### IVAN DominguezHemo [address] [place] [address] CO2 [Moles/Vol] 24.0 mmol/L Normal 21.0-32.0 [facility] Comment on above: Performed By: #### 2 256397 #### IVAN DominguezHemo [address] [place] [address] Creatinine [Mass/Vol] 0.6 mg/dL Normal 0.5-1.1 [facility] Comment on above: Performed By: #### 2 528696 #### IVAN DominguezHemo [address] [place] [address] Glucose [Mass/Vol] 99 mg/dL Normal 70-99 [facility] Comment on above: Performed By: #### 2 899727 #### IVAN DominguezHemo [address] [place] [address] Potassium [Moles/Vol] 4.3 mmol/L Normal 3.5-5.3 [facility] Comment on above: Performed By: #### 2 937165 #### IVAN DominguezHemo [address] [place] [address] Sodium [Moles/Vol] 138 mmol/L Normal 136-145 [facility] Comment on above: Performed By: #### 2 259207 #### IVAN RemHemo [address] [place] [address] Urea nitrogen [Mass/Vol] 11 mg/dL Normal 6-23 [facility] Comment on above: Performed By: #### 2 706854 #### IVAN RemHemo [address] [place] [address] Urea nitrogen/Creatinine [Mass ratio] 18.3 ratio Normal 5.4-30.0 [facility] Comment on above: Performed By: #### 2 020895 #### IVAN DominguezHemo [address] [place] [address] CBC w/ Auto Diffon Erythrocyte distribution width (RBC) [Ratio] 14.4 % Normal 11.5-14.5 [facility] Comment on above: Performed By: #### 2 741815 #### IVAN DominguezHemo [facility] [place] [address] Hematocrit (Bld) [Volume fraction] 38.2 % Normal 36.0-48.0 [facility] Comment on above: Performed By: #### 2 152051 #### IVAN DominguezHemo [facility] [place] [address] Hemoglobin (Bld) [Mass/Vol] 12.5 g/dL Normal 12.0-16.0 [facility] Comment on above: Performed By: #### 2 403579 #### IVAN DominguezHemo [facility] [place] [address] MCH (RBC) [Entitic mass] 28.6 pg Normal 27.0-31.0 [facility] Comment on above: Performed By: #### 2 729561 #### IVAN DominguezHemo [address] [place] [address] MCHC (RBC) [Mass/Vol] 32.8 g/dL Low 33.0-37.0 [facility] Comment on above: Performed By: #### 2 080470 #### IVAN DominguezHemo [facility] [place] [address] MCV (RBC) [Entitic vol] 87.0 fL Normal 78.0-100.0 [facility] Comment on above: Performed By: #### 2 728378 #### IVAN RemHemo [address] [place] [address] Platelet mean volume (Bld) [Entitic vol] 8.3 fL Normal 7.4-11.0 [facility] Comment on above: Performed By: #### 2 382996 #### IVAN RemHemo [address] [place] [address] Platelets (Bld) [#/Vol] 280 E3/mcL Normal 130-400 [facility] Comment on above: Performed By: #### 2 200967 #### IVAN DominguezHemo [address] [place] [address] RBC (Bld) [#/Vol] 4.39 E6/mcL Normal 3.90-5.40 [facility] Comment on above: Performed By: #### 2 930264 #### IVAN DominguezHemo [address] [place] [address] WBC (Bld) [#/Vol] 5.9 E3/mcL Normal 3.6-11.0 [facility] Comment on above: Performed By: #### 2 051729 #### IVANSharri DominguezHemo [address] [place] [address] CKon 08-01-2018 Total CK 65 Int._Unit/L Normal <=215 [facility] Comment on above: Performed By: #### 2 570969 #### IVAN DominguezHemo [facility] [place] [address] CT Head or Brain w/o Contras ton 08-01-2018 CT Head or Brain w/o Contrast Exam Date/Time: 08/01/2018 12:58 EDT Reason for Exam: dizziness;Other (please specify) Report STUDY: CT Head or Brain w/o Contrast; 08/01/2018 12:58 pm INDICATION: Other (please specify). COMPARISON: None. ACCESSION NUMBER(S): [id number] ORDERING CLINICIAN: Rome Montana TECHNIQUE: Volume acquisition through the brain with axial coronal and sagittal reformatted 5 mm images. No IV contrast. FINDINGS: INTRACRANIAL: The ventricles are midline in position. Simpson-white matter differentiation is well maintained. There is no evidence of acute infarction or hemorrhage. There is no extra-axial mass or fluid collection. The basilar cisterns are patent. EXTRACRANIAL: The imaged paranasal sinuses are clear. The imaged mastoid air cells are clear. The calvarium is intact. IMPRESSION: 1. There is no evidence of an acute infarction or hemorrhage. FINAL REPORT Dictated: 08/01/2018 12:59 pm Jennifer Mitchell MD Signed (Electronic Signature): 08/01/2018 12:59 pm Signed by: Jennifer Mitchell MD Technologist: KYM, Normal [facility] Hep Func Panelon 08-01-2018 Albumin [Mass/Vol] 3.6 g/dL Normal 3.4-5.0 [facility] Comment on above: Performed By: #### 2 571345 #### [facility] [place] [address] Albumin/Globulin [Mass ratio] 1.1 {ratio} Normal 1.1-1.9 [facility] Comment on above: Performed By: #### 2 894617 #### IVAN DominguezHemo [address] [place] [address] Alk Phos 69 Int._Unit/L Normal 33-110 [facility] Comment on above: Performed By: #### 2 742057 #### IVAN DominguezHemo [facility] [place] [address] ALT [Catalytic activity/Vol] 12 Int._Unit/L Normal 7-45 [facility] Comment on above: Performed By: #### 2 284561 #### IVAN DominguezHemo [address] [place] [address] AST [Catalytic activity/Vol] 18 Int._Unit/L Normal 9-39 [facility] Comment on above: Performed By: #### 2 865708 #### IVANSharri DominugezHemo [facility] [place] [address] Bili Direct 0.08 mg/dL Normal 0.00-0.30 [facility] Comment on above: Performed By: #### 2 136363 #### IVANSharri DominguezHemo [facility] [place] [address] Bili Indirect 0.44 mg/dL Normal [facility] Comment on above: Result Comment: No e stablished ranges available for the indirect bilirubin Performed By: #### 2 432371 #### IVANSharri DominguezHemo [address] [place] [address] Bili Total 0.52 mg/dL Normal 0.00-1.20 [facility] Comment on above: Performed By: #### 2 944979 #### IVANSharri DominguezHemo [facility] [place] [address] Globulin (S) [Mass/Vol] 3.0 g/dL Normal 2.0-4.0 [facility] Comment on above: Performed By: #### 2 217414 #### IVAN Lazarv[facility] [place] [address] Protein [Mass/Vol] 6.9 g/dL Normal 6.4-8.2 [facility] Comment on above: Performed By: #### 2 671353 #### IVANSharri Fields [facility] [place] [address] Lipase Levelon 08-01-2018 Lipase Lvl 9 Int._Unit/L Normal 9-82 [facility] Comment on above: Performed By: #### 2 927639 #### IVANSharri Fields [facility] [place] [address] Sed Rate Automatedon 019 Sed Rate Automated 40 mm/hr Normal [facility] Comment on above: Result Comment: AGE- SPECIFIC REFERENCE RANGES FOR SEDIMENTATION RATE AUTOMATED REFERENCE RANGE - MM/HR AGE MEN WOMEN 0-2 0-2 - PUBERTY 3-13 3-13 PUBERTY - 50 YRS 0-15 0-20 > 50 YRS 0-20 0-30 Performed By: #### 2 869309 #### IVAN Lazarvane [address] [place] [address] TSHon 08-01-2018 TSH Qn 0.71 mcIU/mL Normal 0.30-5.60 [facility] Comment on above: Order Comment: Pleas e add to spec already in lab if able, thanks Performed By: #### 2 810268 #### IVANSharri Fields [facility] [place] [address] Troponin-Ion 08-01-2018 Troponin I.cardiac [Mass/Vol] 0.01 ng/mL Normal 0.00-0.03 [facility] Comment on above: Performed By: #### 2 939819 #### IVAN [facility] [place] [address] Troponin I.cardiac [Mass/Vol] 0.02 ng/mL Normal 0.00-0.03 [facility] Comment on above: Performed By: #### 2 914085 #### IVAN RemHemo [address] [place] [address] Troponin I.cardiac [Mass/Vol] 0.01 ng/mL Normal 0.00-0.03 [facility] Comment on above: Performed By: #### 2 137958 #### IVANSharri DominguezChem [address] [place] [id number] UA Completeon 08-01-2018 Color (U) Yellow Normal Yellow [facility] Comment on above: Order Comment: Strai ght Cath as needed Performed By: #### 2 111043 #### IVAN RemHemo [address] [place] [address] Glucose (U) [Mass/Vol] Negative Normal Negative [facility] Comment on above: Order Comment: Strai ght Cath as needed Performed By: #### 2 259059 #### IVAN RemHemo [address] [place] [address] Ketones Ql (U) Negative Normal Negative [facility] Comment on above: Order Comment: Strai ght Cath as needed Performed By: #### 2 433973 #### VIAN RemHemo [address] [place] [address] RBC (U) [#/Vol] 0-3 Normal 0-3 [facility] Comment on above: Order Comment: Strai ght Cath as needed Performed By: #### 2 096486 #### IVAN RemHemo [address] [place] [address] UA Blood Negative Normal Negative [facility] Comment on above: Order Comment: Strai ght Cath as needed Performed By: #### 2 003992 #### IVAN RemHemo [address] [place] [address] UA Bacteria Trace Abnormal None [facility] Comment on above: Order Comment: Strai ght Cath as needed Performed By: #### 2 563658 #### IVAN RemHemo [address] [place] [address] UA Clarity SltCloudy Abnormal Clear [facility] Comment on above: Order Comment: Strai ght Cath as needed Performed By: #### 2 051893 #### IVAN RemHemo [address] [place] [id number] UA Leuk Est Negative Normal Negative [facility] Comment on above: Order Comment: Strai ght Cath as needed Performed By: #### 2 417907 #### IVAN RemHemo [address] [place] [address] UA Mucous Many Abnormal Trace [facility] Comment on above: Order Comment: Strai ght Cath as needed Performed By: #### 2 555879 #### IVAN RemHemo [address] [place] [address] UA Nitrite Negative Normal Negative [facility] Comment on above: Order Comment: Strai ght Cath as needed Performed By: #### 2 750233 #### IVAN RemHemo [address] [place] [address] UA pH 5.0 Normal 4.6-8.0 [facility] Comment on above: Order Comment: Strai ght Cath as needed Performed By: #### 2 526762 #### IVAN RemHemo [address] [place] [address] UA Protein Negative Normal Negative [facility] Comment on above: Order Comment: Strai ght Cath as needed Performed By: #### 2 090210 #### IVAN RemHemo [address] [place] [address] UA Spec Grav 1.032 High 1.003-1.03 0 [facility] Comment on above: Order Comment: Strai ght Cath as needed Performed By: #### 2 523620 #### IVAN RemHemo [address] [place] [address] UA Squam Epithelial 0-5 Normal 0-5 [facility] Comment on above: Order Comment: Strai ght Cath as needed Performed By: #### 2 873265 #### IVAN RemHemo [address] [place] [address] UA Urobilinogen 2.0 mg/dL Abnormal [facility] Comment on above: Order Comment: Strai ght Cath as needed Result Comment: Due to a manufacturing issue, low positive urobilinogen results may be fasely positive. Correlate with urine bilirubin and additional clinical/laboratory findings to assess the risk of hemolytic anemia or liver disease. If clinically indicated, repeat testing with an alternate method is available by contacting the laboratory within 24 hours. Performed By: #### 2 970990 #### IVAN DominguezHemo [address] [place] [address] UA WBC 0-5 Normal 0-5 [facility] Comment on above: Order Comment: Strai ght Cath as needed Performed By: #### 2 098255 #### IVAN DominguezHemo [address] [place] [address] Urobilinogen Qn (U) Negative Normal Negative [facility] Comment on above: Order Comment: Strai ght Cath as needed Performed By: #### 2 789345 #### IVAN DominguezHemo [address] [place] [address] XR Chest 2 Viewson 9 XR Chest 2 Views Exam Date/Time: 08/01/2018 10:36 EDT Reason for Exam: Cough Report STUDY: XR Chest 2 Views; 08/01/2018 10:36 am INDICATION: Cough. COMPARISON: 06/18/2018 ACCESSION NUMBER(S): [id number] ORDERING CLINICIAN: Rome Montana FINDINGS: CARDIOMEDIASTINAL SILHOUETTE: Cardiomediastinal silhouette is normal in size and configuration. LUNGS: Lungs are clear. ABDOMEN: No remarkable upper abdominal findings. BONES: No acute osseous changes. IMPRESSION: 1. No evidence of acute cardiopulmonary process. FINAL REPORT Dictated: 08/01/2018 11:04 am Tano Mendez MD Signed (Electronic Signature): 08/01/2018 11:04 am Signed by: Tano Mendez MD Technologist: TRD Normal [facility] eGFRon 08-01-2018 GFR/1.73 sq M predicted among non-blacks MDRD (S/P/Bld) [Vol rate/Area] mL/min/{1.73_m2} Normal [facility] Comment on above: Order Comment: Order added by Discern Expert. Performed By: #### 2 568623 #### IVAN DominguezHemo [address] [place] [address] Auto Diffon 06-18-2018 Basophils (Bld) [#/Vol] 0.0 E3/mcL Normal 0.0-0.2 [facility] Comment on above: Order Comment: Order Added by Discern Expert. Performed By: #### 2 784438 #### IVAN RemHemo [address] [place] [address] Basophils/100 WBC (Bld) 0.6 % Normal 0.0-2.0 [facility] Comment on above: Order Comment: Order Added by Discern Expert. Performed By: #### 2 387411 #### IVAN RemHemo [address] [place] [address] Eos Absolute 0.1 E3/mcL Normal 0.0-0.7 [facility] Comment on above: Order Comment: Order Added by Discern Expert. Performed By: #### 2 595139 #### IVAN RemHemo [address] [place] [address] Eosinophils/100 WBC (Bld) 1.1 % Normal 0.0-11.0 [facility] Comment on above: Order Comment: Order Added by Discern Expert. Performed By: #### 2 784267 #### IVAN RemHemo [address] [place] [address] Lymphocytes (Bld) [#/Vol] 0.7 E3/mcL Low 1.2-3.4 [facility] Comment on above: Order Comment: Order Added by Po Expert. Performed By: #### 2 033503 #### IVAN RemHemo [address] [place] [address] Lymphocytes/100 WBC (Bld) 15.7 % Low 20.0-55.0 [facility] Comment on above: Order Comment: Order Added by Discern Expert. Performed By: #### 2 331846 #### IVAN RemHemo [address] [place] [address] Motley Absolute 0.4 E3/mcL Normal 0.0-0.7 [facility] Comment on above: Order Comment: Order Added by Discern Expert. Performed By: #### 2 421814 #### IVAN RemHemo [address] [place] [address] Monocytes/100 WBC (Bld) 8.3 % Normal 0.0-10.0 [facility] Comment on above: Order Comment: Order Added by Discern Expert. Performed By: #### 2 832492 #### IVAN RemHemo [address] [place] [address] Neutro Absolute 3.5 E3/mcL Normal 1.4-6.5 [facility] Comment on above: Order Comment: Order Added by Discern Expert. Performed By: #### 2 632138 #### IVAN RemHemo [address] [place] [address] Neutro Auto 74.3 % Normal 37.0-75.0 [facility] Comment on above: Order Comment: Order Added by Discern Expert. Performed By: #### 2 424652 #### IVAN RemHemo [address] [place] [address] CBC w/ Auto Diffon 9 Erythrocyte distribution width (RBC) [Ratio] 14.6 % High 11.5-14.5 [facility] Comment on above: Performed By: #### 2 925845 #### IVAN RemHemo [address] [place] [address] Hematocrit (Bld) [Volume fraction] 36.1 % Normal 36.0-48.0 [facility] Comment on above: Performed By: #### 2 150138 #### IVAN RemHemo [address] [place] [address] Hemoglobin (Bld) [Mass/Vol] 11.6 g/dL Low 12.0-16.0 [facility] Comment on above: Performed By: #### 2 996422 #### IVAN RemHemo [address] [place] [address] MCH (RBC) [Entitic mass] 28.3 pg Normal 27.0-31.0 [facility] Comment on above: Performed By: #### 2 292482 #### IVAN RemHemo [address] [place] [address] MCHC (RBC) [Mass/Vol] 32.2 g/dL Low 33.0-37.0 [facility] Comment on above: Performed By: #### 2 152101 #### IVAN RemHemo [address] [place] [address] MCV (RBC) [Entitic vol] 87.8 fL Normal 78.0-100.0 [facility] Comment on above: Performed By: #### 2 313554 #### IVAN RemHemo [address] [place] [address] Platelet mean volume (Bld) [Entitic vol] 8.1 fL Normal 7.4-11.0 [facility] Comment on above: Performed By: #### 2 366458 #### IVAN RemHemo [address] [place] [address] Platelets (Bld) [#/Vol] 241 E3/mcL Normal 130-400 [facility] Comment on above: Performed By: #### 2 965396 #### IVAN RemHemo [address] [place] [address] RBC (Bld) [#/Vol] 4.11 E6/mcL Normal 3.90-5.40 [facility] Comment on above: Performed By: #### 2 507418 #### IVAN RemHemo [address] [place] [address] WBC (Bld) [#/Vol] 4.7 E3/mcL Normal 3.6-11.0 [facility] Comment on above: Performed By: #### 2 388285 #### IVAN RemHemo [address] [place] [address] CMPon 06-18-2018 Albumin [Mass/Vol] 3.7 g/dL Normal 3.4-5.0 [facility] Comment on above: Performed By: #### 2 081517 #### IVAN RemChem [address] [place] [address] Albumin/Globulin [Mass ratio] 1.1 {ratio} Normal 1.1-1.9 [facility] Comment on above: Performed By: #### 2 261686 #### IVAN RemChem [address] [place] [address] Alk Phos 102 Int._Unit/L Normal 33-110 [facility] Comment on above: Performed By: #### 2 257655 #### IVAN RemChem [address] [place] [address] ALT [Catalytic activity/Vol] 31 Int._Unit/L Normal 7-45 [facility] Comment on above: Performed By: #### 2 168186 #### IVAN DominguezChem [address] [place] [address] Anion gap [Moles/Vol] 10 mmol/L Normal 10-20 [facility] Comment on above: Performed By: #### 2 546519 #### IVAN DominguezChem [address] [place] [address] AST [Catalytic activity/Vol] 29 Int._Unit/L Normal 9-39 [facility] Comment on above: Performed By: #### 2 445323 #### IVAN DominguezChem [facility] [place] [address] Bili Total 0.39 mg/dL Normal 0.00-1.20 [facility] Comment on above: Performed By: #### 2 465996 #### IVAN DominguezFREEjit [facility] [place] [address] Calcium [Mass/Vol] 8.7 mg/dL Normal 8.6-10.3 [facility] Comment on above: Performed By: #### 2 349313 #### IVAN DominguezFREEjit [address] [place] [address] Chloride [Moles/Vol] 104 mmol/L Normal 98-107 [facility] Comment on above: Performed By: #### 2 149411 #### IVAN DominguezFREEjit [facility] [place] [address] CO2 [Moles/Vol] 27.0 mmol/L Normal 21.0-32.0 [facility] Comment on above: Performed By: #### 2 746079 #### IVAN DominguezChem [facility] [place] [address] Creatinine [Mass/Vol] 0.7 mg/dL Normal 0.5-1.1 [facility] Comment on above: Performed By: #### 2 033888 #### IVAN RemChem [address] [place] [address] Globulin (S) [Mass/Vol] 3.0 g/dL Normal 2.0-4.0 [facility] Comment on above: Performed By: #### 2 819914 #### IVAN AngelicaFREEjit [address] [place] [address] Glucose [Mass/Vol] 105 mg/dL High 70-99 [facility] Comment on above: Performed By: #### 2 888930 #### IVAN RemChem [address] [place] [address] Potassium [Moles/Vol] 3.8 mmol/L Normal 3.5-5.3 [facility] Comment on above: Performed By: #### 2 864131 #### IVAN RemChem [address] [place] [address] Protein [Mass/Vol] 7.0 g/dL Normal 6.4-8.2 [facility] Comment on above: Performed By: #### 2 586965 #### IVAN RemChem [address] [place] [address] Sodium [Moles/Vol] 137 mmol/L Normal 136-145 [facility] Comment on above: Performed By: #### 2 705491 #### IVAN RemChem [address] [place] [address] Urea nitrogen [Mass/Vol] 14 mg/dL Normal 6-23 [facility] Comment on above: Performed By: #### 2 502662 #### IVAN RemChem [address] [place] [address] Urea nitrogen/Creatinine [Mass ratio] 20.0 ratio Normal 5.4-30.0 [facility] Comment on above: Performed By: #### 2 368831 #### IVAN RemChem [address] [place] [address] XR Chest 2 Viewson 9 XR Chest 2 Views Exam Date/Time: 06/18/2018 20:29 EDT Reason for Exam: Cough Report STUDY: XR Chest 2 Views; 06/18/2018 8:29 pm INDICATION: Cough. COMPARISON: None available ACCESSION NUMBER(S): [id number] ORDERING CLINICIAN: Vini Maza FINDINGS: Lines, tubes, and devices:None. Lungs and pleura: The lungs are clear of focal consolidation. There are no sizeable pleural effusion or pneumothorax. Cardiomediastinal silhouette: Normal cardiomediastinal silhouette Other:No acute osseous abnormality IMPRESSION: No acute cardiopulmonary process FINAL REPORT Dictated: 06/18/2018 8:46 pm Liu HARRIS, Saritha Valles Signed (Electronic Signature): 06/18/2018 8:46 pm Signed by: Liu HARRIS, Saritha Valles Technologist: [facility] eGFRon 06-18-2018 GFR/1.73 sq M predicted among non-blacks MDRD (S/P/Bld) [Vol rate/Area] mL/min/{1.73_m2} [facility] Comment on above: Order Comment: Order added by Discern Expert. Performed By: #### 1 [id number] #### IVAN [employer] [address] [place], [place] [id number] BIANCA SCREENING W TOMOon 03-03 BIANCA SCREENING W TATE * * *Final Report* * *DATE OF EXAM: Mar 03 2018 3:53PM JACK [id number] - BIANCA SCREENING W TATE / REASON: Z12.31-Screening for breast cancer * * * * Physician Interpretation * * * * #[id number] - BIANCA SCREENING W TOMOBILATERAL DIGITAL SCREENING MAMMOGRAM TOMOSYNTHESIS WITH CAD: 03/03/2018HISTORY: Z12.31-Screening For Breast Cancer /Screening Mammogram - patient reports NO symptoms.RESULT:TECHNIQUE: The study was acquired using full field digital technology and interpreted from soft copy.Digital Breast Tomosynthesis (DBT) images were obtained and used to assist in the interpretation of this examination.Current study was also evaluated with a Computer Aided Detection (CAD).Comparison is made to exams dated: 09/10/2014 mammogram and 09/04/2013 mammogram - [facility]. The tissue of both breasts is heterogeneously dense. This may lower the sensitivity of mammography.No significant masses, calcifications, or other findings are seen in either breast.There has been no significant interval change.IMPRESSION:There is no mammographic evidence of malignancy. A 1 year screening mammogram is recommended.Lexa Kennedy/gloria:03/06/2018 10:10:26Imaging Technologist(s): RASHAAD Hathaway)(M), [facility] Hospitalletter sent: Normal over 40Mammogram BI-RADS: 1 NegativeMultiple national specialty organizations have released breast cancer screening guidelines for women at average risk for developing breast cancer - guidelines that are based on both evidence and opinion, yet differ on when to start and how often to screen for breast cancer. With representation from Breast Imaging, Internal Medicine, Women's Health, Family Medicine, and Medical/Surgical Oncology, the [facility] has carefully reviewed the data and reached the following consensus:1) All women should engage in shared decision-making with their providers to decide when to start and how often to screen;2) All women should have the opportunity to start screening mammography at age 40;3) For women ages 45-55, we recommend annual screening mammograms;4) For women ages 55 and over, we support both the transition from an annual to a biennial interval if this aligns more with patient's values and preferences, or continuation with annual screening;5) All women should discuss with their providers when to stop screening mammograms.Strategy Specialist : GloriaTranscribchelsea Date/Time: Mar 03 2018 3:40PDictated by : LEXA JONES MDThivladimir examination was interpreted and the report reviewed and electronically signed by: LEXA JONES MD on Mar 06 2018 10:10AM [id number] [facility] XR Shoulder Complete Righton 02-03-2018 XR Shoulder Complete Right Exam Date/Time: 02/03/2018 20:25 EDT Reason for Exam: right proximal shoulder pain, decreased ROM on extension;Fall Report STUDY: XR Shoulder Complete Right; 02/03/2018 8:25 pm INDICATION: Fall. COMPARISON: None. ACCESSION NUMBER(S): [id number] ORDERING CLINICIAN: [place] FINDINGS: There is no acute fracture or dislocation of the right acromioclavicular joint or glenohumeral joint. The subacromial and glenohumeral joint spaces are maintained. There are mild degenerative changes of the right acromioclavicular joint. There is mild sclerosis of the greater tuberosity compatible with rotator cuff tendinosis. IMPRESSION: No acute osseous abnormality of the right shoulder. FINAL REPORT Dictated: 02/03/2018 8:53 pm Khanh Diggs MD Signed (Electronic Signature): 02/03/2018 8:53 pm Signed by: Khanh Diggs MD Technologist: [facility] CNTHERAPYon 08-18-2017 CNTHERAPY OT/PT/Speech Visit (PTMCRM) -------MARICARMEN PLASENCIA ([id number]) 1975 FDate Time Provider Department08/18/17 10:45 AM NATHEN GONZALEZ (PT) PTMCRMEncounter Number: [id number] Time Provider Department [place]08/18/2017 10:45 AM [id number], JAY (PT) PTMCRM [facility] for Visit: PT Discharge [752]Reason For Visit History RecordedVisit Diagnoses:Difficulty walking [R26.2] Hip stiffness, unspecified laterality [M25.659] Chronic midline low back pain without sciatica [M54.5, G89.29]Allergies As of Date: 08/18/2017(No Known Allergies)Date Reviewed: 08/08/2017Reviewed by: Isela Valles (Rn) MERCEDES Billings - Fully AssessedPrescriptions as of 08/18/2017 Sig: CYCLOBENZAPRINE 10 MG TABLET Take 1 tablet by mouth daily * NAPROXEN 250 MG TABLET Take 2 tablets by mouth twice* GABAPENTIN 600 MG TABLET Take 600 mg at bedtime for 1 * SUCRALFATE 1 GRAM TABLET Take 1 tablet by mouth before* OMEPRAZOLE 20 MG CAPSULE,DENIS* Take 1 capsule twice a day 1/* TRIAMTERENE 37.5 MG-HYDROCHLO* take 1 tablet by mouth once d* GABAPENTIN 300 MG CAPSULE Take 1 capsule by mouth twice* TIZANIDINE 2 MG CAPSULE Take 1 capsule by mouth three* MECLIZINE 25 MG TABLET Take 0.5-1 tablets by mouth e* ONDANSETRON HCL 4 MG TABLET Take 1 tablet by mouth every * COMPOUNDED PRESCRIPTION KNEE HIGH COMPRESSION STOCKIN* CPAP Please do mask refitting for * CPAP Change Auto PAP to 5-13 cm of* COMPOUNDED PRESCRIPTION Compression knee-highs for LE*Progress Notes:Nathen Gonzalez, PT 08/18/2017 11:06 AM AddendumEpisode Visit Count: Visit count could not be calculated. Make sure you areusing a visit which is associated with an episode.Therapist That Will Oversee The Plan Of Care: Nathen Gonzalez CoreyStart of Care Date: 06/22/17Onset Date: 04/04/15Patient Identified by Name and Date of : YesREHABILITATION AND SPORTS THERAPYPHYSICAL THERAPY DISCONTINUANCE OF CAREPLAN OF CARE UPDATE:Assessment: Maricarmen Plasencia is discontinued from Physical Therapy services dueto goal achievement. and maximal benefit.. Patient was seen for Visit countcould not be calculated. Make sure you are using a visit which is associatedwith an episode. visits from Start of Care Date: 06/22/17 to 08/18/2017 andtreatment included: Therapeutic exercise and aquatic PT Pt met or hassignificant progressed towards all goals. Pt has significant issues andunderstands that she will always have to deal with degenerative issues.Goals for Episode of Care: created on 06/22/17 through 08/1717Decrease pain low back RIGHT LEFT lower extremity (met)Increase range of motion low back in flexion extension sb RIGHT LEFT rotationRIGHT LEFT with decrease pain (met )Increase hip mobility RIGHT LEFT extension adduction internal rotation externalrotation with decrease low back pain (met)Ambulate with decrease assym and increase ease for increase duration on even anduneven surface (met)Unilateral balance RIGHT LEFT x 10 sec (met)No give way episodes RIGHT or LEFT lower extremity (met)Agility walk all planes with decrease pain (progressing in water)Less dependence on meds to sleep and control pain (met)[place] in home exercise program. (met)SUBJECTIVE: pt states she feels less pain and more movement in the watewr butfeels like the comprssive nature of her life comes back after a short time outof the water.. Overall she feels the pool has helped her.Pain Score: 3/10OBJECTIVE MEASURES WITH LEVEL OF FUNCTION: ambulate slow pace with increase pain low back RIGHT LEFT lower extremity withassym due to back pain and weaknessarom low back flexion 100 extension 10 sb RIGHT 30 LEFT 30 rotation RIGHT 60LEFT 58No increase pain c/Rose pain complaints with sb RIGHT LEFT rotation RIGHT LEFTBilateral squats hip flexion 112 knee flexion 105 min increase painUnilateral balance RIGHT and LEFT 10 secUnilateral squat RIGHT with RIGHT hand touch hip flexion 85 knee flexion 80Unilateral squat LEFT with LEFT hand touch hip flexion 75 knee flexion 73Strength against PT resistanceRIGHT LEFT hip flexion 5/5 knee flexion 5/5 extension RIGHT 5/5 LEFT 5/5 ankledf pf 5/5No increase pain reportedHip mobility RIGHT LEFT extension 7Adduction 10 internal rotation RIGHT 55 LEFT 53 external rotation RIGHT 57 [id number] c/o increase pain reported todayLess Tender to palpation midline of spine L1 thru [id number] 12 steps reciprocal with 1 hand rail touch only for stabilityNo assymTREATMENT:Therapeutic Exercise:1: sit to stand to sit x 72: arom low back stretch flex ext sb r l rot r l x 53: hip mob r l ext add ir er x 44: amb 300 ft level x 25: amb 12 steps recip x 16: b squats x 77: u squats r l x 3 with same side ue touchSkilled Intervention: Patient was educated in proper exercise technique andpurpose for exercises.Skilled judgment was provided in selection of appropriate interventions.Correct performance of therapeutic exercises was facilitated with verbal, visualand tactile cuing.REHABILITATION AND SPORTS THERAPYPHYSICAL THERAPY TREATMENT NOTEASSESSMENT:Decreased pain with session today. ?Pending recheck, patient may benefit fromcontinued skilled ?aquatic therapy to progress balance/stability and functionalstrength/enduranc e in buoyant environment. ?PLAN FOR NEXT VISIT:Recheck next visit.SUBJECTIVE:Today is last scheduled aquatic therapy visit. ?Recheck with PT later today.Had injection last week, reports having decreased pain since. ?Notes that whilepain has decreased, reports having intermittent burning pain about low back. ?Pre treatment pain: 3/10 low back soreness, intermittent 5/10 burning low back.Post Treatment pain: No change.OBJECTIVE MEASURES WITH LEVEL OF FUNCTION:Patient entered/exited pool independentlyTREATMENT:Wate r depth 4'0"-R/L hamstring stretch 2 x 20 seconds each, back to pool wall ?-R/L gastroc stretch 2 x 20 seconds each, 2 hand support at pool wall ?-Clockwise/counterclockwis e 'hoola hoop', tolerable range, with 2 hands supportat pool wall, 1 x 10 each direction-R/L trunk rotation with hands resting on kickboard, tolerable range, cues forab bracing as needed to change directions, x 10 each direction-R/L trunk side bending with lateral hip glide, x 10 each direction, 2 handsupport at pool wall ? ?Water Depth 3'9"Double leg squats with Upper Extremity support with ab bracing with standing,cues/education for tracking and alignment x 15-Bilateral heel and toe raises x15 each, with 2 hand ?support at pool wall,verbal cues and demonstration to perform while maintaining vertical trunkpositionWater Depth 5'0" (noodle under arms):Lower extremity exercises performed mindful of dynamic lumber stabilization,posture and forward visual gaze:R/L alternating hip ?Flexion/extension 'flutter kick' x60 seconds each with 2hand support at pool wall ?Bilateral hip abduction/adduction 'jumping flor legs' x60 seconds each with 2support at pool wall ?Bilateral bike (forward/backward) x60 seconds each with 2 hand support at [facility] knee tuck 1 x 15, with ab bracing on Lower Extremity extension, with 2hand support at pool wall ? ?Dangling float x 5 minutes spread before, in between and after above deep waterexercises ?Skilled Intervention:Proper selection of treatments for this session based on clinical presentation,deficits, and needsSelection of water depth as appropriate to patient's tolerance ?for exercisesBilling:Sheets: Aquatics ([id number]): ?1:1 time: 2 units: 23-37 minsTotal time: 28 minutesFred Singh PTA ATCBilling:Sheets: Therapeutic Exercise ([id number]): 1:1 time: 35 minutes (2 units: 23-37mins)Total time: 38 minutesCARL Pollockrevious Version ------ [facility] CNTHERAPY OT/PT/Speech Visit (PTMCRM) -------AIDAMARICARMEN Tran ([id number]) 1975 FDate Time Provider Department08/18/17 8:30 AM FRED SINGH (FILLER SPREADER,ATC) PTMCRMEncounter Number: [id number] Time Provider Department [place]08/18/2017 8:30 AM [id number], COREY (FILLER SPREADER,*PTMCRM [facility] Physical Therapy [503]Primary Visit Diagnosis:Hip stiffness, unspecified laterality [M25.659]Allergies As of Date: 08/18/2017(No Known Allergies)Date Reviewed: 08/08/2017Reviewed by: Isela Valles (Rn) MERCEDES Billings - Fully AssessedPrescriptions as of 08/18/2017 Sig: CYCLOBENZAPRINE 10 MG TABLET Take 1 tablet by mouth daily * NAPROXEN 250 MG TABLET Take 2 tablets by mouth twice* GABAPENTIN 600 MG TABLET Take 600 mg at bedtime for 1 * SUCRALFATE 1 GRAM TABLET Take 1 tablet by mouth before* OMEPRAZOLE 20 MG CAPSULE,DENIS* Take 1 capsule twice a day 1/* TRIAMTERENE 37.5 MG-HYDROCHLO* take 1 tablet by mouth once d* GABAPENTIN 300 MG CAPSULE Take 1 capsule by mouth twice* TIZANIDINE 2 MG CAPSULE Take 1 capsule by mouth three* MECLIZINE 25 MG TABLET Take 0.5-1 tablets by mouth e* ONDANSETRON HCL 4 MG TABLET Take 1 tablet by mouth every * COMPOUNDED PRESCRIPTION KNEE HIGH COMPRESSION STOCKIN* CPAP Please do mask refitting for * CPAP Change Auto PAP to 5-13 cm of* COMPOUNDED PRESCRIPTION Compression knee-highs for LE*Progress Notes:Fred Singh PTA ATC 08/18/2017 10:29 AM SignedPlease see PT note dated today for aquatic therapy visit documentation raf's visit.Fred Singh PTA ATC -- [facility] PROGRESSon 08-18-2017 Protein mass conc HNO ID: [id number] thor: Nathen (Pt) Armin: (none)Author Type: Physical TherapistType: Progress NotesFiled: 08/18/2017 11:06 AMNote Text:Episode Visit Count: Visit count could not be calculated. Make sure youare using a visit which is associated with an episode.Therapist That Will Oversee The Plan Of Care: Nathen Gonzalez, CoreyStart of Care Date: 06/22/17Onset Date: 04/04/15Patient Identified by Name and Date of : YesREHABILITATION AND SPORTS THERAPYPHYSICAL THERAPY DISCONTINUANCE OF CAREPLAN OF CARE UPDATE:Assessment: Maricarmen Plasencia is discontinued from Physical Therapy servicesdue to goal achievement. and maximal benefit.. Patient was seen for Visitcount could not be calculated. Make sure you are using a visit which isassociated with an episode. visits from Start of Care Date: 06/22/17 to08/18/2017 and treatment included: Therapeutic exercise and aquatic PT Ptmet or has significant progressed towards all goals. Pt has significantissues and understands that she will always have to deal with degenerativeissues.Goals for Episode of Care: created on 06/22/17 through 08/1717Decrease pain low back RIGHT LEFT lower extremity (met)Increase range of motion low back in flexion extension sb RIGHT LEFTrotation RIGHT LEFT with decrease pain (met )Increase hip mobility RIGHT LEFT extension adduction internal rotationexternal rotation with decrease low back pain (met)Ambulate with decrease assym and increase ease for increase duration oneven and uneven surface (met)Unilateral balance RIGHT LEFT x 10 sec (met)No give way episodes RIGHT or LEFT lower extremity (met)Agility walk all planes with decrease pain (progressing in water)Less dependence on meds to sleep and control pain (met)[place] in home exercise program. (met)SUBJECTIVE: pt states she feels less pain and more movement in the watewrbut feels like the comprssive nature of her life comes back after a shorttime out of the water.. Overall she feels the pool has helped her.Pain Score: 3/10OBJECTIVE MEASURES WITH LEVEL OF FUNCTION: ambulate slow pace with increase pain low back RIGHT LEFT lower extremitywith assym due to back pain and weaknessarom low back flexion 100 extension 10 sb RIGHT 30 LEFT 30 rotation RIGHT60 LEFT 58No increase pain c/Rose pain complaints with sb RIGHT LEFT rotation RIGHT LEFTBilateral squats hip flexion 112 knee flexion 105 min increase painUnilateral balance RIGHT and LEFT 10 secUnilateral squat RIGHT with RIGHT hand touch hip flexion 85 knee [id number] squat LEFT with LEFT hand touch hip flexion 75 knee flexion 73Strength against PT resistanceRIGHT LEFT hip flexion 5/5 knee flexion 5/5 extension RIGHT 5/5 LEFT 5/5ankle df pf 5/5No increase pain reportedHip mobility RIGHT LEFT extension 7Adduction 10 internal rotation RIGHT 55 LEFT 53 external rotation RIGHT 57LEFT 56No c/o increase pain reported todayLess Tender to palpation midline of spine L1 thru [id number] 12 steps reciprocal with 1 hand rail touch only for stabilityNo assymTREATMENT:Therapeutic Exercise:1: sit to stand to sit x 72: arom low back stretch flex ext sb r l rot r l x 53: hip mob r l ext add ir er x 44: amb 300 ft level x 25: amb 12 steps recip x 16: b squats x 77: u squats r l x 3 with same side ue touchSkilled Intervention: Patient was educated in proper exercise techniqueand purpose for exercises.Skilled judgment was provided in selection of appropriate interventions.Correct performance of therapeutic exercises was facilitated with verbal,visual and tactile cuing.REHABILITATION AND SPORTS THERAPYPHYSICAL THERAPY TREATMENT NOTEASSESSMENT:Decreased pain with session today. ?Pending recheck, patient may benefitfrom continued skilled ?aquatic therapy to progress balance/stability andfunctional strength/endurance in buoyant environment. ?PLAN FOR NEXT VISIT:Recheck next visit.SUBJECTIVE:Today is last scheduled aquatic therapy visit. ?Recheck with PT latertoday. ?Had injection last week, reports having decreased pain since.?Notes that while pain has decreased, reports having intermittent burningpain about low back. ?Pre treatment pain: 3/10 low back soreness, intermittent 5/10 burning lowback.Post Treatment pain: No change.OBJECTIVE MEASURES WITH LEVEL OF FUNCTION:Patient entered/exited pool independentlyTREATMENT:Wate r depth 4'0"-R/L hamstring stretch 2 x 20 seconds each, back to pool wall ?-R/L gastroc stretch 2 x 20 seconds each, 2 hand support at pool wall ?-Clockwise/counterclockwis e 'hoola hoop', tolerable range, with 2 handssupport at pool wall, 1 x 10 each direction-R/L trunk rotation with hands resting on kickboard, tolerable range, cuesfor ab bracing as needed to change directions, x 10 each direction-R/L trunk side bending with lateral hip glide, x 10 each direction, 2hand support at pool wall ? ?Water Depth 3'9"Double leg squats with Upper Extremity support with ab bracing withstanding, cues/education for tracking and alignment x 15-Bilateral heel and toe raises x15 each, with 2 hand ?support at poolwall, verbal cues and demonstration to perform while maintaining verticaltrunk positionWater Depth 5'0" (noodle under arms):Lower extremity exercises performed mindful of dynamic lumberstabilization, posture and forward visual gaze:R/L alternating hip ?Flexion/extension 'flutter kick' x60 seconds eachwith 2 hand support at pool wall ?Bilateral hip abduction/adduction 'jumping flor legs' x60 seconds eachwith 2 support at pool wall ?Bilateral bike (forward/backward) x60 seconds each with 2 hand support atpool wallDouble knee tuck 1 x 15, with ab bracing on Lower Extremity extension,with 2 hand support at pool wall ? ?Dangling float x 5 minutes spread before, in between and after above deepwater exercises ?Skilled Intervention:Proper selection of treatments for this session based on clinicalpresentation, deficits, and needsSelection of water depth as appropriate to patient's tolerance ?forexercisesBilling:Sheets : Aquatics ([id number]): ?1:1 time: 2 units: 23-37 minsTotal time: 28 minutesCoretyrone Singh PTA ATCBilling:Sheets: Therapeutic Exercise ([id number]): 1:1 time: 35 minutes (2 units:23-37 mins)Total time: 38 minutesJatyrone Gonzalez PT [facility] Protein mass conc HNO ID: [id number] thor: Fred ([employer]) Dmitriye: (none)Author Type: Physical Therapy AssistantType: Progress NotesFiled: 08/18/2017 10:29 AMNote Text:Please see PT note dated today for aquatic therapy visit documentation fortoday's visit.Fred Singh, FILLER SPREADER ATC [facility] HISTORY PHYSICALon 8 HISTORY PHYSICAL HNO ID: [id number] thor: Christy Jacobsen (Jv Baseball Coach)Service: (none)Author Type: Nurse PractitionerType: HANDPFiled: 08/08/2017 1:47 PMNote Text:PROCEDURAL SEDATION HISTORY AND PHYSICAL EXAMSERVICE DATE: 08/08/2017SERVICE TIME: 1:45 PMSubjectiveHPI: This is a 42 year old female who presents with low back pain thatradiates into the tailbone, 10/11, stabbing and aching and worsens withactivity.PAST ANESTHESIA HISTORY: No history of adverse eventPAST MEDICAL HISTORYDiagnosis Date- ALLERGY, UNSPECIFIED 11/23/2004- Bilateral Knee Pain 12/23/2004- Depression- Obesity, unspecified- Obstructive sleep apnea- SnoringPAST SURGICAL HISTORYProcedure Laterality Date- COLONOSCOPY 05/16/15 Dr. Chou- PAST SURGICAL HISTORY OF 05/16/15 Dr. Chou Endoscopy- REPAIR OF NASAL SEPTUM 05/31/05 Septoplasty- STABISMUS SURG,ONE HORIZ MUSCLE Strabismus surgeryPrior to Admission medications as of 08/08/17 1339Medication Sig Last Dose Takingcyclobenzaprine (FLEXERIL) 10 mg tablet Take 1 tablet by mouth daily atbedtime. 08/07/2017 at 2099 Yesnaproxen (NAPROSYN) 250 mg tablet Take 2 tablets by mouth twice daily withmeals. 08/07/2017 at 2099 Yessucralfate (CARAFATE) 1 gram tablet Take 1 tablet by mouth before mealsand at bedtime. 08/07/2017 at 2099 Yesomeprazole (PRILOSEC) 20 mg capsule Take 1 capsule twice a day 1/2 hrbefore meal. 08/07/2017 at 2099 Yestriamterene-hydrochlorot hiazide (MAXZIDE-25) 37.5-25 mg per tablet take 1tablet by mouth once daily 08/07/2017 at 2100 Yesgabapentin (NEURONTIN) 300 mg capsule Take 1 capsule by mouth twice daily.08/07/2017 at 2100 YestiZANidine HCl (ZANAFLEX) 2 mg capsule Take 1 capsule by mouth three timesdaily as needed for Muscle Spasm (back pain). 08/07/2017 at 2100 Yesondansetron (ZOFRAN, HYDROCHLORIDE,) 4 mg tablet Take 1 tablet by mouthevery 8 hours as needed. Unknown at 2100 Yesgabapentin (NEURONTIN) 600 mg tablet Take 600 mg at bedtime for 1 week,then 1 tablet BID for 1 week, then 1 tablet TID Unknown at Unknown timemeclizine (ANTIVERT) 25 mg tab Take 0.5-1 tablets by mouth every 6 hoursas needed (dizziness/vertigo). Unknown at Unknown timeCOMPOUNDED PRESCRIPTION KNEE HIGH COMPRESSION STOCKINGS 30-40 MM. DX:(R60.9) Edema; (I87.8) Venous stasis; (R60.0) Bilateral leg edema Unknownat Unknown timeCPAP Please do mask refitting for skin irritation from nasal pillows andleaking. Consider FFM when eligible for new mask. Unknown at Unknown timeCPAP Change Auto PAP to 5-13 cm of water with humidification. Mask (perpatient preference) optional chin strap (if indicated) , filters, tubing,humidifier and lifetime supplies. Unknown at Unknown timeCOMPOUNDED PRESCRIPTION Compression knee-highs for LE edema. Unknown atUnknown timeALLERGIESNo Known AllergiesObjectivePHYSICAL EXAM: The remainder of the physical exam is noncontributory.AIRWAY: Airway Visualization of Uvula: YesMouth opening greater than 2 fingerbreadths: YesNeck Full Range of Motion: YesLUNGS: Lungs clear to auscultation, Good diaphragmatic excursionCARDIAC: Normal S1 and S2; no rubs, murmurs, or gallopsAssessment/PlanASA Class: ASA Class:: Patient with mild systemic diseaseActive Problems: * No active hospital problems. *Resolved Problems: * No resolved hospital problems. *Medication and Non-Pharmacologic VTE Prophylaxis/AnticoagulantsV TE Prophylaxis: VTE prophylaxis appropriateProvisional Diagnosis/Treatment Plan: lumbar radiculopathy, planned forsacral epidural.SEDATION GOAL: ModerateSIGNATURE: Christy Jacobsen APRN.REAL ESTATE INTERN PATIENT NAME: Maricarmen CortezATE: August 08, 2017 : 1:44 PM PAGER: [phone] [facility] OPERATIVE NOon 08-08-2017 OPERATIVE NO HNO ID: [id number] thor: Annalisa Pratt WService: Pain ManagementAuthor Type: PhysicianType: Operative ReportFiled: 08/08/2017 2:07 PMNote Text:CAUDAL EPIDURAL STEROID INJECTION ORLOG ID: [id number]/Procedure Date: 08/08/2017Incision/Procedure Start Time: 1:55 PMIncision Close/Procedure End Time: 2:02 PMPre-Op/Pre-Procedure Diagnosis: Coccydynia [M53.3]Radiculopathy, lumbarregion [M54.16]Herniated nucleus pulposus, L5-S1, left [M51.27]Post-Op/Post-Proced ure Diagnosis: sameProcedure: Procedure(s) (LRB):SACRAL(CAUDAL) EPIDURAL BLOCK W/INJECTION NON NEUROLYTIC W/IMAGE GUIDANCE(N/A)INJECTION(S) SACROCOCCYGEAL LIGAMENT (Pending)Surgeon(s)/Procedu ralist(s) and Practical Nursing Instructor(s):Surgeon(s) and Role: * Annalisa Pratt W - PrimaryAssistant(s): No, I performed the entire procedure.Anesthesia: : LocalSedation: Anxiolysis; midazolam 2 , ASA II, normal airway, chestexcursion and heart rate. Airway reassessed immediately prior tomedication administration and IV sedation was administered incrementallyto allow the patient to remain comfortable and conversant throughout theprocedure.Subjective: Maricarmen Plasencia is a 42 year old female [facility] of lower back pain and lower extremitypain.Indications: suspected radicular pain at the L5-S1. CoccydyniaTechnique: IV was started prior to the procedure. The patient wastransported to the fluoroscopy suite and was placed in a prone position onthe fluoroscopy table with a pillow under the abdomen to reduce the lumbarlordosis.The patient was monitored using pulse oximetry, intermittentblood pressure reading and 3-lead EKG. Using sterile technique, the skinover the lumbosacral spine was prepped with povidone-iodine and draped.The sacrum, sacral cornua and coccyx were identified by palpation andunder fluoroscopic imaging in an AP and lateral view.The skin and the subcutaneous tissues at the entry site were anesthetizedwith 2 ml of lidocaine 0.5%. A 22 gauge 3 inch Spinal needlewas advancedinto the sacral hiatus under intermittent AP and lateral fluoroscopicguidance until the needle passed through the sacrococcygeal ligament andthen advanced another 1cm to the caudal epidural space. The final needleposition was confirmed using an AP and lateral fluoroscopic imaging.After negative aspiration of blood or CSF, 1 ml of iohexal 300 wasinjected with live fluoroscopy. Midline epidural spread of contrast wasconfirmed.Ten ml of 0.9% preservative-free normal saline with 40 mg triamcinolonewas injected and the needle was removed. The injection site was cleanedand dried and a sterile dressing was applied.The skin overlaying the sacrococcygeal ligament and then anesthetized with1 mL lidocaine 0.5% and 25-gauge 1/2 inch needle.A 22-gauge 3 and half inch spinal needle was then inserted through theskin wheal advanced under. Her guidance in the lateral view until theneedle tip reaches the sacrococcygeal ligament. 5 mL of lidocaine with 20mg Kenalog were injected at each site of the sacrum and the needles wereremoved. Patient tolerated the procedure without problemThe patient was taken to the post-block recovery area for furtherobservation.Descript ion of Procedure Findings: Technically adequate procedureComplications: NoneEstimated Blood Loss: minimalSpecimens: NoneImplantable Devices: NoneDrains: NoneAssessment: Coccydynia [M53.3]Radiculopathy, lumbar region[M54.16]Herniated nucleus pulposus, L5-S1, left [M51.27]Plan: The effect of the procedure will be evaluated at the next visit.Follow-up Appointment: 3-4 weeks for for an office visitSIGNATURE: Annalisa Pratt MD PATIENT NAME: Maricarmen CortezATE: August 08, 2017 : 2:04 PM PAGER/CONTACT #: [facility] CNTHERAPYon 08-04-2017 CNTHERAPY OT/PT/Speech Visit ([facility]) -------MARICARMEN PLASENCIA ([id number]) 1975 FDate Time Provider Department08/04/17 12:00 PM FRED SINGH (FILLER SPREADER,ATC) PTMCRMEncounter Number: [id number] Time Provider Department [place]08/04/2017 12:00 PM [id number], COREY (FILLER SPREADER,*[facility] for Visit: Physical Therapy [503]Primary Visit Diagnosis:Chronic midline low back pain, with sciatica presence unspecified [M54.5, G89.29] Other Visit Diagnoses:Difficulty walking [R26.2] Hip stiffness, unspecified laterality [M25.659]Allergies As of Date: 08/04/2017(No Known Allergies)Date Reviewed: 07/25/2017Reviewed by: Wendi Ruiz (Rn), RN - Fully AssessedPrescriptions as of 08/04/2017 Sig: CYCLOBENZAPRINE 10 MG TABLET Take 1 tablet by mouth daily * NAPROXEN 250 MG TABLET Take 2 tablets by mouth twice* GABAPENTIN 600 MG TABLET Take 600 mg at bedtime for 1 * SUCRALFATE 1 GRAM TABLET Take 1 tablet by mouth before* OMEPRAZOLE 20 MG CAPSULE,DENIS* Take 1 capsule twice a day 1/* TRIAMTERENE 37.5 MG-HYDROCHLO* take 1 tablet by mouth once d* GABAPENTIN 300 MG CAPSULE Take 1 capsule by mouth twice* TIZANIDINE 2 MG CAPSULE Take 1 capsule by mouth three* MECLIZINE 25 MG TABLET Take 0.5-1 tablets by mouth e* ONDANSETRON HCL 4 MG TABLET Take 1 tablet by mouth every * COMPOUNDED PRESCRIPTION KNEE HIGH COMPRESSION STOCKIN* CPAP Please do mask refitting for * CPAP Change Auto PAP to 5-13 cm of* COMPOUNDED PRESCRIPTION Compression knee-highs for LE*Progress Notes:Fred Singh ([facility]ard Atc) 08/04/2017 3:05 PM SignedEpisode Visit Count: 11Therapist That Will Oversee The Plan Of Care: [facility]: 06/22/17Onset Date: 04/04/15REHABILITATION AND SPORTS THERAPYPHYSICAL THERAPY TREATMENT NOTEASSESSMENT:Slight decrease in pain following session today. Scheduled for injections nextweek, plans to follow up with PT after. Challenged with balance/controlinitially with combo upper/lower extremity movements.PLAN FOR NEXT VISIT:Patient to follow up per PT plan. Continue to progress core stabilization andfunctional strengthening exercises as tolerated.SUBJECTIVE:Genera lly sore today. Scheduled for injections next week.Pain Score: 6/10Pain Location: BackDescription: SoreFrequency: ContinuousPost Treatment Pain Score: 5/10OBJECTIVE MEASURES WITH LEVEL OF FUNCTION:Patient entered and exited the pool via stairs,INDEPENDENTLY.Patien t accompanied by clinician in water throughout entire session,supervision unless otherwise noted.TREATMENT:Aquatic Therapy:See note below. Upper/Lower extremity exercises performed mindful of dynamiclumbar stabilization, posture and forward visual gaze:Water Depth 3'9" - 4'0" light-R/L hamstring stretch 2 x 20 seconds each, back to pool wall-R/L gastroc stretch 2 x 20 seconds each, 2 hand support at pool wall-Clockwise/counterclock marti 'hoola hoop', tolerable range, with 2 hands supportat pool wall, 1 x 10 each direction-R/L trunk side bending, x 10 each direction, 1 hand support at pool wall-Opposite upper and lower extremity flexion/extension, abduction/adduction [id number] with no LE resistance and Level 3 paddle UE resistance with 1 handsupportWater Depth 3'9"-R/L side step squats x 2 lengths with 2 hand support at pool wall,cues/education/demonst ration for sequencing and technique to maintain normalsquat width after stepping and equal R/L weight distribution with squatWater Depth 5'0" (noodle under arms):Lower extremity exercises performed mindful of dynamic lumber stabilization,posture and forward visual gaze:R/L alternating hip Flexion/extension 'flutter kick' 2x45 seconds each with 1-2hand support at pool wallBilateral hip abduction/adduction 'jumping flor legs' 2x45 seconds each with 1-2support at pool wallBilateral bike (forward/backward) 2x45 seconds each with 1-2 hand support atpool wallDouble knee tuck 1 x 15, with ab bracing on Lower Extremity extension, with 2hand support at pool wall Dangling float x 5 minutes spread before, in between and after above deep waterexercises*Following visit, patient sat independently in hot tub. Advised caution andadherence to posted advisories regarding precautions/guidelines for hot tub use.*Skilled Intervention:Proper selection of treatments for this session based on clinical presentation,deficits, and needsSelection of water depth as appropriate to patient's tolerance for exercisesVerbal cues with demonstration required for proper techniqueVerbal cues required for core activation, postural control and forward visualgaze.Patient educated on rationale/technique for exercises/activities performed thissession.Billing:[place]: Aqu[employer] ([id number]): 1:1 time: 2 units: 23-37 minsTotal Time: 28 minutesFred Singh PTA, ATC -- [facility] PROGRESSon 08-04-2017 Protein mass conc HNO ID: [id number] thor: Fred Singh ([facility]ons[facility]at Atc)Service: (none)Author Type: Physical Therapy AssistantType: Progress NotesFiled: 08/04/2017 3:05 PMNote Text:Episode Visit Count: 11Therapist That Will Oversee The Plan Of Care: Nathen Gonzalez CoreyStart of Care Date: 06/22/17Onset Date: 04/04/15REHABILITATION AND SPORTS THERAPYPHYSICAL THERAPY TREATMENT NOTEASSESSMENT:Slight decrease in pain following session today. Scheduled for injectionsnext week, plans to follow up with PT after. Challenged withbalance/control initially with combo upper/lower extremity movements.PLAN FOR NEXT VISIT:Patient to follow up per PT plan. Continue to progress core stabilizationand functional strengthening exercises as tolerated.SUBJECTIVE:Genera lly sore today. Scheduled for injections next week.Pain Score: 6/10Pain Location: BackDescription: SoreFrequency: ContinuousPost Treatment Pain Score: 5/10OBJECTIVE MEASURES WITH LEVEL OF FUNCTION:Patient entered and exited the pool via stairs,INDEPENDENTLY.Patien t accompanied by clinician in water throughout entire session,supervision unless otherwise noted.TREATMENT:Aquatic Therapy:See note below. Upper/Lower extremity exercises performed mindful ofdynamic lumbar stabilization, posture and forward visual gaze:Water Depth 3'9" - 4'0" light-R/L hamstring stretch 2 x 20 seconds each, back to pool wall-R/L gastroc stretch 2 x 20 seconds each, 2 hand support at pool wall-Clockwise/counterclock marti 'hoola hoop', tolerable range, with 2 handssupport at pool wall, 1 x 10 each direction-R/L trunk side bending, x 10 each direction, 1 hand support at pool wall-Opposite upper and lower extremity flexion/extension, abduction/[id number] reps with no LE resistance and Level 3 paddle UE resistance with 1hand supportWater Depth 3'9"-R/L side step squats x 2 lengths with 2 hand support at pool wall,cues/education/demonst ration for sequencing and technique to maintainnormal squat width after stepping and equal R/L weight distribution withsquatWater Depth 5'0" (noodle under arms):Lower extremity exercises performed mindful of dynamic lumberstabilization, posture and forward visual gaze:R/L alternating hip Flexion/extension 'flutter kick' 2x45 seconds eachwith 1-2 hand support at pool wallBilateral hip abduction/adduction 'jumping flor legs' 2x45 seconds eachwith 1-2 support at pool wallBilateral bike (forward/backward) 2x45 seconds each with 1-2 hand supportat pool wallDouble knee tuck 1 x 15, with ab bracing on Lower Extremity extension,with 2 hand support at pool wall Dangling float x 5 minutes spread before, in between and after above deepwater exercises*Following visit, patient sat independently in hot tub. Advised cautionand adherence to posted advisories regarding precautions/guidelines forhot tub use. *Skilled Intervention:Proper selection of treatments for this session based on clinicalpresentation, deficits, and needsSelection of water depth as appropriate to patient's tolerance forexercisesVerbal cues with demonstration required for proper techniqueVerbal cues required for core activation, postural control and forwardvisual gaze.Patient educated on rationale/technique for exercises/activities performedthis session.Billing:[place]: Aquatics ([id number]): 1:1 time: 2 units: 23-37 minsTotal Time: 28 minutesCorey MONSERRAT Singh, ATC [facility] CNTHERAPYon 08-02-2017 CNTHERAPY OT/PT/Speech Visit (PTMCRM) -------MARICARMEN PLASENCIA ([id number]) 1975 FDate Time Provider Department08/02/17 12:00 PM FRED SINGH (MONSERRAT,ATC) PTMCRMEncounter Number: [id number] Time Provider Department [place]08/02/2017 12:00 PM [id number], COREY (MONSERRAT,*[facility] RecMCReason for Visit: Physical Therapy [503]Primary Visit Diagnosis:Chronic midline low back pain, with sciatica presence unspecified [M54.5, G89.29] Other Visit Diagnoses:Difficulty walking [R26.2] Hip stiffness, unspecified laterality [M25.659]Allergies As of Date: 08/02/2017(No Known Allergies)Date Reviewed: 07/25/2017Reviewed by: Wendi Reid) MERCEDES Ruiz - Fully AssessedPrescriptions as of 08/02/2017 Sig: CYCLOBENZAPRINE 10 MG TABLET Take 1 tablet by mouth daily * NAPROXEN 250 MG TABLET Take 2 tablets by mouth twice* GABAPENTIN 600 MG TABLET Take 600 mg at bedtime for 1 * SUCRALFATE 1 GRAM TABLET Take 1 tablet by mouth before* OMEPRAZOLE 20 MG CAPSULE,DENIS* Take 1 capsule twice a day 1/* TRIAMTERENE 37.5 MG-HYDROCHLO* take 1 tablet by mouth once d* GABAPENTIN 300 MG CAPSULE Take 1 capsule by mouth twice* TIZANIDINE 2 MG CAPSULE Take 1 capsule by mouth three* MECLIZINE 25 MG TABLET Take 0.5-1 tablets by mouth e* ONDANSETRON HCL 4 MG TABLET Take 1 tablet by mouth every * COMPOUNDED PRESCRIPTION KNEE HIGH COMPRESSION STOCKIN* CPAP Please do mask refitting for * CPAP Change Auto PAP to 5-13 cm of* COMPOUNDED PRESCRIPTION Compression knee-highs for LE*Progress Notes:Fred Singh PTA ATC 08/02/2017 2:10 PM SignedEpisode Visit Count: 10Therapist That Will Oversee The Plan Of Care: Nathen Gonzalez CoreyStart of Care Date: 06/22/17Onset Date: 04/04/15REHABILITATION AND SPORTS THERAPYPHYSICAL THERAPY TREATMENT NOTEASSESSMENT:Improved trunk control with deep water progressions; similar control with trialof 1-2 hand support compared to initial visits with 2 hand support.Intermittent cues for posture with session today. No issue withentering/exiting pool independently today. Patient notified of next scheduledtherapy appointment date and time.PLAN FOR NEXT VISIT:Patient to follow up per PT plan. Continue to progress core stabilization andfunctional strengthening exercises as tolerated.SUBJECTIVE:Woke up stiff/sore this morning, but has since decreased after taking musclerelaxer earlier today.Pain Score: 6/10Pain Location: BackDescription: SoreFrequency: ContinuousPost Treatment Pain Score: No ChangeOBJECTIVE MEASURES WITH LEVEL OF FUNCTION:Patient entered and exited the pool via stairs,INDEPENDENTLY.Patien t accompanied by clinician in water throughout entire session,supervision unless otherwise noted.TREATMENT:Aquatic Therapy:Patient to follow up per PT plan. Continue to progress core stabilization andfunctional strengthening exercises as tolerated. Recheck next visitWater depth 4'0"-Right/Left side stepping over rocks x 2 lengths at pool wall-R/L gastroc stretch 2 x 20 seconds each, 2 hand support at pool wall-R/L trunk rotation with hands resting on kickboard, tolerable range, cues forab bracing as needed to change directions, x 10 each direction-Right/Left piriformis stretch 2x20 seconds 1 hand support at pool wallUpper extremity exercises performed mindful of dynamic lumbar stabilization,posture and forward visual gaze:-R/L alternating shoulder flexion/extension x10 each with Level 5 paddleresistance-R/L alternating shoulder abduction/adduction x10 each with Level 5 paddleresistance-R/L alternating shoulder horizontal abduction/adduction x10 each with Level 5paddle resistance-Bilateral shoulder rows x10 each with Level 5 paddle resistanceWater Depth 3'9"-Double leg squats with 2 hand support at pool wall with ab bracing on standing2 x 15, cues/education for tracking and alignmentWater depth 4'0"-R/L single leg squats with 2 hand support at pool wall 2 x10 each, cues fortolerable range-R/L single leg calf raises with 2 hand support at pool wall 2 x 10 eachWater Depth 5'0" (noodle under arms):Lower extremity exercises performed mindful of dynamic lumber stabilization,posture and forward visual gaze:R/L alternating hip Flexion/extension 'flutter kick' 45 seconds each with 1-2hand support at muscle shoals wallBilateral hip abduction/adduction 'jumping flor legs' 45 seconds each with 1-2support at muscle shoals wallBilateral bike (forward/backward) 45 seconds each with 1-2 hand support at [facility] knee tuck 1 x 15, with ab bracing on Lower Extremity extension, with 2hand support at pool wall Dangling float x 5 minutes spread before, in between and after above deep waterexercisesSkilled Intervention:Proper selection of treatments for this session based on clinical presentation,deficits, and needsSelection of water depth as appropriate to patient's tolerance for exercisesVerbal cues with demonstration required for proper techniqueVerbal cues required for core activation, postural control and forward visualgaze.Patient educated on rationale/technique for exercises/activities performed thissession.[place]: Aquatics ([id number]): 1:1 time: 2 units: 23-37 minsTotal Time: 32 minutesFred Singh PTA, NISHA -- [facility] PROGRESSon 08-02-2017 Protein mass conc HNO ID: [id number] thor: Fred ([facility]ard Atc) Meg: (none)Author Type: Physical Therapy AssistantType: Progress NotesFiled: 08/02/2017 2:10 PMNote Text:Episode Visit Count: 10Therapist That Will Oversee The Plan Of Care: Nathen Gonzalez, [facility]Start of Care Date: 06/22/17Onset Date: 04/04/15REHABILITATION AND SPORTS THERAPYPHYSICAL THERAPY TREATMENT NOTEASSESSMENT:Improved trunk control with deep water progressions; similar control withtrial of 1-2 hand support compared to initial visits with 2 hand support.Intermittent cues for posture with session today. No issue withentering/exiting pool independently today. Patient notified of nextscheduled therapy appointment date and time.PLAN FOR NEXT VISIT:Patient to follow up per PT plan. Continue to progress core stabilizationand functional strengthening exercises as tolerated.SUBJECTIVE:Woke up stiff/sore this morning, but has since decreased after takingmuscle relaxer earlier today.Pain Score: 6/10Pain Location: BackDescription: SoreFrequency: ContinuousPost Treatment Pain Score: No ChangeOBJECTIVE MEASURES WITH LEVEL OF FUNCTION:Patient entered and exited the pool via stairs,INDEPENDENTLY.Patien t accompanied by clinician in water throughout entire session,supervision unless otherwise noted.TREATMENT:Aquatic Therapy:Patient to follow up per PT plan. Continue to progress core stabilizationand functional strengthening exercises as tolerated. Recheck next visitWater depth 4'0"-Right/Left side stepping over rocks x 2 lengths at pool wall-R/L gastroc stretch 2 x 20 seconds each, 2 hand support at pool wall-R/L trunk rotation with hands resting on kickboard, tolerable range, cuesfor ab bracing as needed to change directions, x 10 each direction-Right/Left piriformis stretch 2x20 seconds 1 hand support at pool wallUpper extremity exercises performed mindful of dynamic lumbarstabilization, posture and forward visual gaze:-R/L alternating shoulder flexion/extension x10 each with Level 5 paddleresistance-R/L alternating shoulder abduction/adduction x10 each with Level 5 paddleresistance-R/L alternating shoulder horizontal abduction/adduction x10 each withLevel 5 paddle resistance-Bilateral shoulder rows x10 each with Level 5 paddle resistanceWater Depth 3'9"-Double leg squats with 2 hand support at pool wall with ab bracing onstanding 2 x 15, cues/education for tracking and alignmentWater depth 4'0"-R/L single leg squats with 2 hand support at pool wall 2 x10 each, cuesfor tolerable range-R/L single leg calf raises with 2 hand support at pool wall 2 x 10 eachWater Depth 5'0" (noodle under arms):Lower extremity exercises performed mindful of dynamic lumberstabilization, posture and forward visual gaze:R/L alternating hip Flexion/extension 'flutter kick' 45 seconds each with1-2 hand support at pool wallBilateral hip abduction/adduction 'jumping flor legs' 45 seconds each with1-2 support at pool wallBilateral bike (forward/backward) 45 seconds each with 1-2 hand support atpool wallDouble knee tuck 1 x 15, with ab bracing on Lower Extremity extension,with 2 hand support at pool wall Dangling float x 5 minutes spread before, in between and after above deepwater exercisesSkilled Intervention:Proper selection of treatments for this session based on clinicalpresentation, deficits, and needsSelection of water depth as appropriate to patient's tolerance forexercisesVerbal cues with demonstration required for proper techniqueVerbal cues required for core activation, postural control and forwardvisual gaze.Patient educated on rationale/technique for exercises/activities performedthis session.Billing:[place]: [employer] ([id number]): 1:1 time: 2 units: 23-37 minsTotal Time: 32 minutesCorey MONSERRAT Singh, ATC [facility] CNTHERAPYon 07-29-2017 CNTHERAPY OT/PT/Speech Visit (PTMCRM) -------MARICARMEN PLASENCIA ([id number]) 1975 FDate Time Provider Department07/29/17 11:30 AM FRED SINGH (FILLER SPREADER,ATC) PTMCRMEncounter Number: [id number] Time Provider Department [place]07/29/2017 11:30 AM [id number], COREY (FILLER SPREADER,*PTMCRM [facility] for Visit: Physical Therapy [503]Primary Visit Diagnosis:Difficulty walking [R26.2] Other Visit Diagnoses:Hip stiffness, unspecified laterality [M25.659] Chronic midline back pain, unspecified back location [M54.9, G89.29] Chronic midline low back pain, with sciatica presence unspecified [M54.5, G89.29]Allergies As of Date: 07/29/2017(No Known Allergies)Date Reviewed: 07/25/2017Reviewed by: Wendi Reid) MERCEDES Ruiz - Fully AssessedPrescriptions as of 07/29/2017 Sig: CYCLOBENZAPRINE 10 MG TABLET Take 1 tablet by mouth daily * NAPROXEN 250 MG TABLET Take 2 tablets by mouth twice* GABAPENTIN 600 MG TABLET Take 600 mg at bedtime for 1 * SUCRALFATE 1 GRAM TABLET Take 1 tablet by mouth before* OMEPRAZOLE 20 MG CAPSULE,DENIS* Take 1 capsule twice a day 1/* TRIAMTERENE 37.5 MG-HYDROCHLO* take 1 tablet by mouth once d* GABAPENTIN 300 MG CAPSULE Take 1 capsule by mouth twice* TIZANIDINE 2 MG CAPSULE Take 1 capsule by mouth three* MECLIZINE 25 MG TABLET Take 0.5-1 tablets by mouth e* ONDANSETRON HCL 4 MG TABLET Take 1 tablet by mouth every * COMPOUNDED PRESCRIPTION KNEE HIGH COMPRESSION STOCKIN* CPAP Please do mask refitting for * CPAP Change Auto PAP to 5-13 cm of* COMPOUNDED PRESCRIPTION Compression knee-highs for LE*Progress Notes:Fred Singh PTA ATC 07/29/2017 2:29 PM SignedEpisode Visit Count: 9Therapist That Will Oversee The Plan Of Care: Nathen Gonzalez CoreyStart of Care Date: 06/22/17Onset Date: 04/04/15REHABILITATION AND SPORTS THERAPYPHYSICAL THERAPY TREATMENT NOTEASSESSMENT: Encouraged patient to perform walking progressions independently on days ofearly arrival. Decreased pain since last visit. No issue with decrease inwater depth today. Good effort throughout session. Patient notified of nextscheduled therapy appointment date and time.PLAN FOR NEXT VISIT:Patient to follow up per PT plan. Continue to progress core stabilization andfunctional strengthening exercises as tolerated. Recheck next visitSUBJECTIVE:[place] good with sitting in hot tub post session yesterday. Took muscle relaxerearlier today.Pain Score: 6/10Pain Location: BackDescription: SoreFrequency: ContinuousPost Treatment Pain Score: No ChangeOBJECTIVE MEASURES WITH LEVEL OF FUNCTION:Patient entered and exited the pool via stairs, reciprocally; Supervision topass current channelPatient accompanied by clinician in water throughout entire session,supervision unless otherwise noted.TREATMENT:Aquatic Therapy:Patient to follow up per PT plan. Continue to progress core stabilization andfunctional strengthening exercises as tolerated. Recheck next visitWater depth 4'0"-Forward marching and backward walking x 2 lengths at pool wall-R/L hamstring stretch 2 x 20 seconds each, back to pool wall-R/L gastroc stretch 2 x 20 seconds each, 2 hand support at pool wall-Clockwise/counterclock marti 'hoola hoop', tolerable range, with 2 hands supportat pool wall, 1 x 10 each direction-R/L trunk side bending, x 10 each direction, 1 hand support at pool wall-R/L hip flexion/extension, abduction/adduction x10 each with 1-2 hand supportat pool wall-R/L hamstring curls x 10 each with 2 hand support at pool wall, cues fortolerable range while limiting hip flexion. .-R/L LAQ's x10 each with no resistance, with 1 hand support at pool wall, cuesfor ankle DF on end range extensionWater Depth 3'9" (Decreased water depth compared to last visit)-Double leg squats with 2 hand support at pool wall with ab bracing on standing2 x 10, cues/education for tracking and alignmentWater Depth 5'0" (noodle under arms):Lower extremity exercises performed mindful of dynamic lumber stabilization,posture and forward visual gaze:R/L alternating hip Flexion/extension 'flutter kick' 60 seconds each with 1-2hand support at pool wallBilateral hip abduction/adduction 'jumping flor legs' 60 seconds each with 1-2support at pool wallBilateral bike (forward/backward) 60 seconds each with 1-2 hand support at [facility] Dangling float x 5 minutes spread before, in between and after above deep waterexercisesSkilled Intervention:Proper selection of treatments for this session based on clinical presentation,deficits, and needsSelection of water depth as appropriate to patient's tolerance for exercisesVerbal cues with demonstration required for proper techniqueVerbal cues required for core activation, postural control and forward visualgaze.Patient educated on rationale/technique for exercises/activities performed thissession.Billing:[place]: Aquatics ([id number]): 1:1 time: 2 units: 23-37 minsTotal Time: 30 minutesFred Singh PTA, ATC -- [facility] PROGRESSon 07-29-2017 Protein mass conc HNO ID: [id number] thor: Fred (Monserrat Atc) Meg: (none)Author Type: Physical Therapy AssistantType: Progress NotesFiled: 07/29/2017 2:29 PMNote Text:Episode Visit Count: 9Therapist That Will Oversee The Plan Of Care: Nathen Gonzalez CoreyStart of Care Date: 06/22/17Onset Date: 04/04/15REHABILITATION AND SPORTS THERAPYPHYSICAL THERAPY TREATMENT NOTEASSESSMENT: Encouraged patient to perform walking progressions independently on daysof early arrival. Decreased pain since last visit. No issue withdecrease in water depth today. Good effort throughout session. Patientnotified of next scheduled therapy appointment date and time.PLAN FOR NEXT VISIT:Patient to follow up per PT plan. Continue to progress core stabilizationand functional strengthening exercises as tolerated. Recheck next visitSUBJECTIVE:[place] good with sitting in hot tub post session yesterday. Took musclerelaxer earlier today.Pain Score: 6/10Pain Location: BackDescription: SoreFrequency: ContinuousPost Treatment Pain Score: No ChangeOBJECTIVE MEASURES WITH LEVEL OF FUNCTION:Patient entered and exited the pool via stairs, reciprocally;Supervision to pass current channelPatient accompanied by clinician in water throughout entire session,supervision unless otherwise noted.TREATMENT:Aquatic Therapy:Patient to follow up per PT plan. Continue to progress core stabilizationand functional strengthening exercises as tolerated. Recheck next visitWater depth 4'0"-Forward marching and backward walking x 2 lengths at pool wall-R/L hamstring stretch 2 x 20 seconds each, back to pool wall-R/L gastroc stretch 2 x 20 seconds each, 2 hand support at pool wall-Clockwise/counterclock marti 'hoola hoop', tolerable range, with 2 handssupport at pool wall, 1 x 10 each direction-R/L trunk side bending, x 10 each direction, 1 hand support at pool wall-R/L hip flexion/extension, abduction/adduction x10 each with 1-2 handsupport at pool wall-R/L hamstring curls x 10 each with 2 hand support at pool wall, cues fortolerable range while limiting hip flexion. .-R/L LAQ's x10 each with no resistance, with 1 hand support at pool wall,cues for ankle DF on end range extensionWater Depth 3'9" (Decreased water depth compared to last visit)-Double leg squats with 2 hand support at pool wall with ab bracing onstanding 2 x 10, cues/education for tracking and alignmentWater Depth 5'0" (noodle under arms):Lower extremity exercises performed mindful of dynamic lumberstabilization, posture and forward visual gaze:R/L alternating hip Flexion/extension 'flutter kick' 60 seconds each with1-2 hand support at pool wallBilateral hip abduction/adduction 'jumping flor legs' 60 seconds each with1-2 support at pool wallBilateral bike (forward/backward) 60 seconds each with 1-2 hand support atpool wall Dangling float x 5 minutes spread before, in between and after above deepwater exercisesSkilled Intervention:Proper selection of treatments for this session based on clinicalpresentation, deficits, and needsSelection of water depth as appropriate to patient's tolerance forexercisesVerbal cues with demonstration required for proper techniqueVerbal cues required for core activation, postural control and forwardvisual gaze.Patient educated on rationale/technique for exercises/activities performedthis session.Billing:Sudeep: Alexis ([id number]): 1:1 time: 2 units: 23-37 minsTotal Time: 30 minutesCoretyrone Singh PTA, ATC [facility] CNTHERAPYon 07-28-2017 CNTHERAPY OT/PT/Speech Visit (PTMCRM) -------MARICARMEN PLASENCIA ([id number]) 1975 FDate Time Provider Department07/28/17 12:00 PM FRED SINGH (MONSERRAT,ATC) PTMCRMEncounter Number: [id number] Time Provider Department [place]07/28/2017 12:00 PM [id number], COREY (FILLER SPREADER,*PTMM [place] RecMCReason for Visit: Physical Therapy [503]Primary Visit Diagnosis:Chronic midline low back pain, with sciatica presence unspecified [M54.5, G89.29] Other Visit Diagnoses:Difficulty walking [R26.2] Hip stiffness, unspecified laterality [M25.659] Chronic midline back pain, unspecified back location [M54.9, G89.29]Allergies As of Date: 07/28/2017(No Known Allergies)Date Reviewed: 07/25/2017Reviewed by: Wendi Reid) MERCEDES Ruiz - Fully AssessedPrescriptions as of 07/28/2017 Sig: CYCLOBENZAPRINE 10 MG TABLET Take 1 tablet by mouth daily * NAPROXEN 250 MG TABLET Take 2 tablets by mouth twice* GABAPENTIN 600 MG TABLET Take 600 mg at bedtime for 1 * SUCRALFATE 1 GRAM TABLET Take 1 tablet by mouth before* OMEPRAZOLE 20 MG CAPSULE,DENIS* Take 1 capsule twice a day 1/* TRIAMTERENE 37.5 MG-HYDROCHLO* take 1 tablet by mouth once d* GABAPENTIN 300 MG CAPSULE Take 1 capsule by mouth twice* TIZANIDINE 2 MG CAPSULE Take 1 capsule by mouth three* MECLIZINE 25 MG TABLET Take 0.5-1 tablets by mouth e* ONDANSETRON HCL 4 MG TABLET Take 1 tablet by mouth every * COMPOUNDED PRESCRIPTION KNEE HIGH COMPRESSION STOCKIN* CPAP Please do mask refitting for * CPAP Change Auto PAP to 5-13 cm of* COMPOUNDED PRESCRIPTION Compression knee-highs for LE*Progress Notes:Fred Singh PTA ATC 07/28/2017 2:39 PM SignedEpisode Visit Count: 8Therapist That Will Oversee The Plan Of Care: Nathen Gonzalez, [facility]Start of Care Date: 06/22/17Onset Date: 04/04/15REHABILITATION AND SPORTS THERAPYPHYSICAL THERAPY TREATMENT NOTEASSESSMENT:Improved trunk control with deep water progressions; similar control with trialof 1-2 hand support compared to initial visits with 2 hand support. Decreasepain with session today. Tolerated decrease in water depth well withoutincrease in pain.Patient notified of next scheduled therapy appointment date and time.PLAN FOR NEXT VISIT:Patient to follow up per PT plan. Continue to progress core stabilization andfunctional strengthening exercises as tolerated. Recheck next visitSUBJECTIVE:Recheck with PT earlier this week, referred back for additional aquatic therapyvisits.Pain Score: 8/10Pain Location: BackDescription: SoreFrequency: ContinuousPost Treatment Pain Score: 7/10OBJECTIVE MEASURES WITH LEVEL OF FUNCTION:Patient ambulates to/from locker room with decreased trunk rotation/arm swing.Patient entered and exited the pool via stairs, reciprocally; Supervision topass current channelPatient accompanied by clinician in water throughout entire session,supervision unless otherwise noted.Increased turbulence in pool today due to number of patrons in pool at time ofvisit. Patient educated to perform exercises within controlled/tolerable ROMin light of increased turbulence.TREATMENT:Aquati c Therapy:See note below. Upper/Lower extremity exercises performed mindful of dynamiclumbar stabilization, posture and forward visual gaze:Water depth 4'0"-R/L side stepping over rocks x4 lengths each at pool wall for Upper Extremityassist as needed.-R/L trunk rotation with hands resting on kickboard, tolerable range, cues forab bracing as needed to change directions, x 10 each direction-R/L piriformis stretch 2 x 20 seconds each,1 hand support-Bilateral heel and toe raises x15 each, with 2 hand support at pool wall,verbal cues and demonstration to perform while maintaining vertical trunkpositionUpper extremity exercises performed mindful of dynamic lumbar stabilization,posture and forward visual gaze:-R/L alternating shoulder flexion/extension x10 each with Level 3 paddleresistance-R/L alternating shoulder abduction/adduction x10 each with Level 3 paddleresistance-R/L alternating shoulder horizontal abduction/adduction x10 each with Level 3paddle resistance-Bilateral shoulder rows x15 each with Level 3 paddle resistanceWater Depth 5'0" (noodle under arms):Lower extremity exercises performed mindful of dynamic lumber stabilization,posture and forward visual gaze:R/L alternating hip Flexion/extension 'flutter kick' 2x45 seconds each with 1-2hand support at pool wallBilateral hip abduction/adduction 'jumping flor legs' 2x45 seconds each with 1-2support at pool wallBilateral bike (forward/backward) 2x45 seconds each with 1-2 hand support atpool wall Dangling float x 5 minutes spread before, in between and after above deep waterexercisesSkilled Intervention:Proper selection of treatments for this session based on clinical presentation,deficits, and needsSelection of water depth as appropriate to patient's tolerance for exercisesVerbal cues with demonstration required for proper techniqueVerbal cues required for core activation, postural control and forward visualgaze.Patient educated on rationale/technique for exercises/activities performed thissession.Billing:[place]: Aquatics ([id number]): 1:1 time: 2 units: 23-37 minsTotal Time: 30 minutesFred Signh PTA, ATC -- [facility] PROGRESSon 07-28-2017 Protein mass conc HNO ID: [id number] thor: Fred (Monserrat Atc) Meg: (none)Author Type: Physical Therapy AssistantType: Progress NotesFiled: 07/28/2017 2:39 PMNote Text:Episode Visit Count: 8Therapist That Will Oversee The Plan Of Care: Nathen Gonzalez, [facility] Date: 06/22/17Onset Date: 04/04/15REHABILITATION AND SPORTS THERAPYPHYSICAL THERAPY TREATMENT NOTEASSESSMENT:Improved trunk control with deep water progressions; similar control withtrial of 1-2 hand support compared to initial visits with 2 hand support.Decrease pain with session today. Tolerated decrease in water depth wellwithout increase in pain.Patient notified of next scheduled therapy appointment date and time.PLAN FOR NEXT VISIT:Patient to follow up per PT plan. Continue to progress core stabilizationand functional strengthening exercises as tolerated. Recheck next visitSUBJECTIVE:Recheck with PT earlier this week, referred back for additional aquatictherapy visits.Pain Score: 8/10Pain Location: BackDescription: SoreFrequency: ContinuousPost Treatment Pain Score: 7/10OBJECTIVE MEASURES WITH LEVEL OF FUNCTION:Patient ambulates to/from locker room with decreased trunk rotation/armswing.Patient entered and exited the pool via stairs, reciprocally;Supervision to pass current channelPatient accompanied by clinician in water throughout entire session,supervision unless otherwise noted.Increased turbulence in pool today due to number of patrons in pool attime of visit. Patient educated to perform exercises withincontrolled/tolerable ROM in light of increased turbulence.TREATMENT:Aquati c Therapy:See note below. Upper/Lower extremity exercises performed mindful ofdynamic lumbar stabilization, posture and forward visual gaze:Water depth 4'0"-R/L side stepping over rocks x4 lengths each at pool wall for UpperExtremity assist as needed.-R/L trunk rotation with hands resting on kickboard, tolerable range, cuesfor ab bracing as needed to change directions, x 10 each direction-R/L piriformis stretch 2 x 20 seconds each,1 hand support-Bilateral heel and toe raises x15 each, with 2 hand support at poolwall, verbal cues and demonstration to perform while maintaining verticaltrunk positionUpper extremity exercises performed mindful of dynamic lumbarstabilization, posture and forward visual gaze:-R/L alternating shoulder flexion/extension x10 each with Level 3 paddleresistance-R/L alternating shoulder abduction/adduction x10 each with Level 3 paddleresistance-R/L alternating shoulder horizontal abduction/adduction x10 each withLevel 3 paddle resistance-Bilateral shoulder rows x15 each with Level 3 paddle resistanceWater Depth 5'0" (noodle under arms):Lower extremity exercises performed mindful of dynamic lumberstabilization, posture and forward visual gaze:R/L alternating hip Flexion/extension 'flutter kick' 2x45 seconds eachwith 1-2 hand support at pool wallBilateral hip abduction/adduction 'jumping flor legs' 2x45 seconds eachwith 1-2 support at pool wallBilateral bike (forward/backward) 2x45 seconds each with 1-2 hand supportat pool wall Dangling float x 5 minutes spread before, in between and after above deepwater exercisesSkilled Intervention:Proper selection of treatments for this session based on clinicalpresentation, deficits, and needsSelection of water depth as appropriate to patient's tolerance forexercisesVerbal cues with demonstration required for proper techniqueVerbal cues required for core activation, postural control and forwardvisual gaze.Patient educated on rationale/technique for exercises/activities performedthis session.Billing:[place]: Aquatics ([id number]): 1:1 time: 2 units: 23-37 minsTotal Time: 30 minutesCorey MONSERRAT Singh, ATC [facility] CNTHERAPYon 07-26-2017 CNTHERAPY OT/PT/Speech Visit (PTMCRM) -------MARICARMEN PLASENCIA ([id number]) 1975 FDate Time Provider Department07/26/17 1:15 PM NATHEN GONZALEZ (PT) PTMCRMEncounter Number: [id number] Time Provider Department [place]07/26/2017 1:15 PM [id number], JAY (PT) PTMCRSpringwoods [facility]al [facility]Rebo[facility]: PT Progress Note [1596]Primary Visit Diagnosis:Chronic midline low back pain, with sciatica presence unspecified [M54.5, G89.29] Other Visit Diagnoses:Difficulty walking [R26.2] Hip stiffness, unspecified laterality [M25.659] Chronic midline back pain, unspecified back location [M54.9, G89.29]Allergies As of Date: 07/26/2017(No Known Allergies)Date Reviewed: 07/25/2017Reviewed by: Wendi Reid) MERCEDES Ruiz - Fully AssessedPrescriptions as of 07/26/2017 Sig: CYCLOBENZAPRINE 10 MG TABLET Take 1 tablet by mouth daily * NAPROXEN 250 MG TABLET Take 2 tablets by mouth twice* GABAPENTIN 600 MG TABLET Take 600 mg at bedtime for 1 * SUCRALFATE 1 GRAM TABLET Take 1 tablet by mouth before* OMEPRAZOLE 20 MG CAPSULE,DENIS* Take 1 capsule twice a day 1/* TRIAMTERENE 37.5 MG-HYDROCHLO* take 1 tablet by mouth once d* GABAPENTIN 300 MG CAPSULE Take 1 capsule by mouth twice* TIZANIDINE 2 MG CAPSULE Take 1 capsule by mouth three* MECLIZINE 25 MG TABLET Take 0.5-1 tablets by mouth e* ONDANSETRON HCL 4 MG TABLET Take 1 tablet by mouth every * COMPOUNDED PRESCRIPTION KNEE HIGH COMPRESSION STOCKIN* CPAP Please do mask refitting for * CPAP Change Auto PAP to 5-13 cm of* COMPOUNDED PRESCRIPTION Compression knee-highs for LE*Progress Notes:Nathen Gonzalez, PT 07/26/2017 1:46 PM AddendumEpisode Visit Count: 7Therapist That Will Oversee The Plan Of Care: Nathen Gonzalez, [facility]yStart of Care Date: 06/22/17Onset Date: 04/04/15Patient Identified by Name and Date of : YesREHABILITATION AND SPORTS THERAPYPHYSICAL THERAPY PROGRESS REPORTPLAN OF CARE UPDATE:Assessment: Maricarmen Plasencia exhibits difficulty with ongoing pain and limitedmobility with increase pain low back and hips and lower extremity RIGHT LEFT .She continues to be limited with sitting, rising from a chair, standing,walking, stair negotiation, bending, heavy exertion, lifting, physicalactivities, kneeling, squatting, driving, cleaning, cooking and dressing. She isprogressing slower than expected towards her therapy goals as demonstrated by:pain levels and PT feels pt needs to be in pool independent 2-3 x a week inaddition to pt with aquatic therapy 2 x a week.. She will benefit from continuedskilled therapy requiring further progression in water in order to improverange of motion strength flexibility and pain. Pt has a epidural injectionscheduled for 08/08/2017.Functional gains: Improved gait qualityImproved ability to perform transfersImproved ability to climb stepsIncreased ROMIncreased strengthGoals for Episode of Care: created on 06/22/17 through 08/06/17Decrease pain low back RIGHT LEFT lower extremity (not met)Increase range of motion low back in flexion extension sb RIGHT LEFT rotationRIGHT LEFT with decrease pain (progressing )Increase hip mobility RIGHT LEFT extension adduction internal rotation externalrotation with decrease low back pain (progressing)Ambulate with decrease assym and increase ease for increase duration on even anduneven surface (progrerssing)Unilateral balance RIGHT LEFT x 10 sec (progressing)No give way episodes RIGHT or LEFT lower extremity (progressing none reported)Agility walk all planes with decrease pain (progressing in water)Less dependence on meds to sleep and control pain (not met)[place] in home exercise program. (progressing in water)Planned Interventions, Frequency, and Duration: ,Patient to be seen forSUBJECTIVE: pt states she feel better in water but as soon as she gets out shehas same or worse pain. Pt states that she feel better in the water but as soonas she goes to shallower water she has same or worse pain as she gets out of thewater.OBJECTIVE MEASURES WITH LEVEL OF FUNCTION: ambulate slow pace with increase pain low back RIGHT LEFT lower extremity withassym due to back pain and weaknessarom low back flexion 90 extension 3 sb RIGHT 25 LEFT 28 rotation RIGHT 55 [id number] pain with any extension No pain with flexionNo pain complaints with sb RIGHT LEFT rotation RIGHT LEFTBilateral squats hip flexion 110 knee flexion 85 min increase painUnilateral balance RIGHT and LEFT 3-4 secUnilateral squat RIGHT with RIGHT hand touch hip flexion 75 knee flexion 70Unilateral squat LEFT with LEFT hand touch hip flexion 72 knee flexion 72Strength against PT resistanceRIGHT LEFT hip flexion 5/5 knee flexion 5/5 extension RIGHT 5/5 LEFT 5/5 ankledf pf 5/5No increase pain reportedHip mobility RIGHT LEFT extension 5 with increase low back painAdduction 8 internal rotation RIGHT 45 LEFT 47 external rotation RIGHT 50 [id number] c/o increase pain reported todayTender to palpation midline of spine L1 thru S1 no changeAmbulate 12 steps reciprocal with 1 hand rail touch only for stabilityWith min to no assymTREATMENT:Sagittal Plane Frontal Plane Transverse PlaneX = neutral X = neutral X = neutralR = staggered right W = wide base E = external rotationL = staggered left N = narrow base I = internal alewigqv2xd letter = sagittal, 2nd letter = frontal, 3rd letter = transverseExamples: XXX = neutral, neutral, neutral RXE = right staggered, neutral width, toes outTherapeutic Exercise:1: sit to stand to sit x 72: arom low back stretch flex ext sb r l rot r l x 53: hip mob r l ext add ir er x 44: amb 300 ft level x 25: amb 12 steps recip x 16: b squats x 77: u squats r l x 3 with same side ue touch8: discuass progression of aquatics and no giveway weaknessSkilled Intervention: Patient was educated in proper exercise technique andpurpose for exercises.Skilled judgment was provided in selection of appropriate interventions.Correct performance of therapeutic exercises was facilitated with verbal, visualand tactile cuing.Billing:[place]ude[place]: Therapeutic Exercise ([id number]): 1:1 time: 38 minutes (3 units: 38-52mins)Total time: 40 minutesJay Damian, PTREHABILITATION AND SPORTS THERAPYPHYSICAL THERAPY TREATMENT NOTEASSESSMENT:Decreased pain with session today. Pending recheck with PT, patient may benefitfrom continued skilled aquatic therapy to progress balance/stability andfunctional strength/endurance in buoyant environment. Patient notified of nextscheduled therapy appointment date and time.PLAN FOR NEXT VISIT:Patient to follow up per PT plan. Continue to progress core stabilization andfunctional strengthening exercises as tolerated.SUBJECTIVE:Rechec k with PT after visit today. Reports having continued low back/hipsoreness stiffness. Consult with pain MD yesterday, scheduled for injections08/08/17.Pre treatment pain: 10 low back/hipsPost Treatment pain: 10OBJECTIVE MEASURES WITH LEVEL OF FUNCTION:Patient entered and exited the pool via stairs reciprocally.Patient accompanied by clinician in water throughout entire session,supervision unless otherwise noted.TREATMENT:Aquatic Therapy:See note below. Upper/Lower extremity exercises performed mindful of dynamiclumbar stabilization, posture and forward visual gaze:??Water depth 4'0"-Forward marching and backward walking x2 lengths each at pool wall for UpperExtremity assist as needed.Water Depth 4'3"-R/L gastroc stretch 2x20 seconds 2 hand support at pool wall-R/L trunk side bending, x 10 each direction, 1 hand support at pool wall-Clockwise/counterclock marti 'hoola hoop', tolerable range, with 2 hands supportat pool wall, 1 x 10 each direction-R/L hamstring stretch 2 x 20 seconds each, back to pool wall-Double leg squats with 2 hand support at pool wall with ab bracing on standing1 x 15, cues/education for tracking and alignmentWater Depth 5'0" (noodle under arms):Lower extremity exercises performed mindful of dynamic lumber stabilization,posture and forward visual gaze:R/L alternating hip Flexion/extension 'flutter kick' x45 seconds each with 2hand support at pool wallBilateral hip abduction/adduction 'jumping flor legs' x45 seconds each with 2support at pool wallBilateral bike (forward/backward) x45 seconds each with 2 hand support at [facility]allDouble knee tuck 1 x 15, with ab bracing on Lower Extremity extension, with 2hand support at pool wall Dangling float x 6 minutes spread before, in between and after above deep waterexercises???Skilled Intervention:Proper selection of treatments for this session based on clinical presentation,deficits, and needsSelection of water depth as appropriate to patient's tolerance for exercisesVerbal cues with demonstration required for proper techniqueVerbal cues required for core activation, postural control and forward visualgaze.Patient educated on rationale/technique for exercises/activities performed thissession.?[place]ander:[place]ude[place] : Aquatics ([id number]): 1:1 time: 2 units: 23-37 minsTotal time: 28 minutesCorey MONSERRAT Singh ATCPrevious Version ------ [facility] CNTHERAPY OT/PT/Speech Visit (PTMCRM) -------MARICARMEN PLASENCIA ([id number]) 1975 FDate Time Provider Department07/26/17 12:00 PM FRED SINGH (FILLER SPREADER,ATC) PTMCRMEncounter Number: [id number] Time Provider Department [place]07/26/2017 12:00 PM [id number], COREY (FILLER SPREADER,*[facility]ason for [facility]: Physical Therapy [503]Primary Visit Diagnosis:Hip stiffness, unspecified laterality [M25.659]Allergies As of Date: 07/26/2017(No Known Allergies)Date Reviewed: 07/25/2017Reviewed by: Wendi De La RosaRn) MERCEDES Ruiz - Fully AssessedPrescriptions as of 07/26/2017 Sig: CYCLOBENZAPRINE 10 MG TABLET Take 1 tablet by mouth daily * NAPROXEN 250 MG TABLET Take 2 tablets by mouth twice* GABAPENTIN 600 MG TABLET Take 600 mg at bedtime for 1 * SUCRALFATE 1 GRAM TABLET Take 1 tablet by mouth before* OMEPRAZOLE 20 MG CAPSULE,DENIS* Take 1 capsule twice a day 1/* TRIAMTERENE 37.5 MG-HYDROCHLO* take 1 tablet by mouth once d* GABAPENTIN 300 MG CAPSULE Take 1 capsule by mouth twice* TIZANIDINE 2 MG CAPSULE Take 1 capsule by mouth three* MECLIZINE 25 MG TABLET Take 0.5-1 tablets by mouth e* ONDANSETRON HCL 4 MG TABLET Take 1 tablet by mouth every * COMPOUNDED PRESCRIPTION KNEE HIGH COMPRESSION STOCKIN* CPAP Please do mask refitting for * CPAP Change Auto PAP to 5-13 cm of* COMPOUNDED PRESCRIPTION Compression knee-highs for LE*Progress Notes:Fred Singh PTA ATC 07/26/2017 2:04 PM SignedPlease see PT note dated today for aquatic therapy visit documentation fortoday's visit.Fred Singh PTA ATC -- [facility] HOSPon 07-26-2017 HOSP Patient:Cindy Plasencia EMRN: Height:5' 7.5"(1.715 m)Weight:242 lb 6.4 oz (109.952 kg)Outpatient Medications as of 08/08/17:cyclobenzaprine (FLEXERIL) 10 mg tabletnaproxen (NAPROSYN) 250 mg tabletgabapentin (NEURONTIN) 600 mg tabletsucralfate (CARAFATE) 1 gram tabletomeprazole (PRILOSEC) 20 mg capsuletriamterene-hydrochl orothiazide (MAXZIDE-25) 37.5-25 mg per tabletgabapentin (NEURONTIN) 300 mg capsuletiZANidine HCl (ZANAFLEX) 2 mg capsulemeclizine (ANTIVERT) 25 mg tabondansetron (ZOFRAN, HYDROCHLORIDE,) 4 mg tabletCOMPOUNDED PRESCRIPTIONCPAPCPAPCOMPOUN DED PRESCRIPTIONAdmission/Clini c Administered Medications as of 08/08/17:lactated ringers infusionProblem List:Headache(784.0) [R51]Allergy, unspecified not elsewhere classified [T78.40XA]Bilateral Knee Pain [M25.50]Deviated nasal septum [J34.2]Chronic rhinitis [J31.0]RAFAEL (obstructive sleep apnea) [G47.33]Adjustment disorder with mixed anxiety and depressed mood [F43.23]Morbid obesity with BMI of 40.0-44.9, adult (HCC) [E66.01, Z68.41]Bilateral leg edema [R60.0]Hydronephrosis, left [N13.30]Chronic midline low back pain [M54.5, G89.29]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]Chronic midline back pain [M54.9, G89.29]Difficulty walking [R26.2]Hip stiffness, unspecified laterality [M25.659]Coccydynia [M53.3]Herniated nucleus pulposus, L5-S1, left [M51.27]Radiculopathy, lumbar region [M54.16]Gait disturbance [R26.9]Mechanical low back pain [M54.5]Allergies:No Known AllergiesDate Verified:08/08/17Lab ValuesNo results within the last 30 days for the following basenames: K,HCTProgress Notes (PT SHEETS REC [facility]):Fred Singh ([employer] [employer]) 08/04/2017 3:05 PM SignedEpisode Visit Count: 11Therapist That Will Oversee The Plan Of Care: Nathen Gonzalez CoreyStart of Care Date: 06/22/17Onset Date: 04/04/15REHABILITATION AND SPORTS THERAPYPHYSICAL THERAPY TREATMENT NOTEASSESSMENT:Slight decrease in pain following session today. Scheduled for injections nextweek, plans to follow up with PT after. Challenged with balance/controlinitially with combo upper/lower extremity movements.PLAN FOR NEXT VISIT:Patient to follow up per PT plan. Continue to progress core stabilization andfunctional strengthening exercises as tolerated.SUBJECTIVE:Genera lly sore today. Scheduled for injections next week.Pain Score: 6/10Pain Location: BackDescription: SoreFrequency: ContinuousPost Treatment Pain Score: 5/10OBJECTIVE MEASURES WITH LEVEL OF FUNCTION:Patient entered and exited the pool via stairs,INDEPENDENTLY.Patien t accompanied by clinician in water throughout entire session,supervision unless otherwise noted.TREATMENT:Aquatic Therapy:See note below. Upper/Lower extremity exercises performed mindful of dynamiclumbar stabilization, posture and forward visual gaze:Water Depth 3'9" - 4'0" light-R/L hamstring stretch 2 x 20 seconds each, back to pool wall-R/L gastroc stretch 2 x 20 seconds each, 2 hand support at pool wall-Clockwise/counterclock marti 'hoola hoop', tolerable range, with 2 hands supportat pool wall, 1 x 10 each direction-R/L trunk side bending, x 10 each direction, 1 hand support at pool wall-Opposite upper and lower extremity flexion/extension, abduction/adduction [id number] with no LE resistance and Level 3 paddle UE resistance with 1 handsupportWater Depth 3'9"-R/L side step squats x 2 lengths with 2 hand support at pool wall,cues/education/demonst ration for sequencing and technique to maintain normalsquat width after stepping and equal R/L weight distribution with squatWater Depth 5'0" (noodle under arms):Lower extremity exercises performed mindful of dynamic lumber stabilization,posture and forward visual gaze:R/L alternating hip Flexion/extension 'flutter kick' 2x45 seconds each with 1-2hand support at pool wallBilateral hip abduction/adduction 'jumping flor legs' 2x45 seconds each with 1-2support at pool wallBilateral bike (forward/backward) 2x45 seconds each with 1-2 hand support atpool wallDouble knee tuck 1 x 15, with ab bracing on Lower Extremity extension, with 2hand support at pool wall Dangling float x 5 minutes spread before, in between and after above deep waterexercises*Following visit, patient sat independently in hot tub. Advised caution andadherence to posted advisories regarding precautions/guidelines for hot tub use.*Skilled Intervention:Proper selection of treatments for this session based on clinical presentation,deficits, and needsSelection of water depth as appropriate to patient's tolerance for exercisesVerbal cues with demonstration required for proper techniqueVerbal cues required for core activation, postural control and forward visualgaze.Patient educated on rationale/technique for exercises/activities performed thissession.Billing:Sudeep: Aquatics ([id number]): 1:1 time: 2 units: 23-37 minsTotal Time: 28 minutesCorey MONSERRAT Singh ATCProgress Notes (PT SUDEEP REC [facility]):Fred Singh ([employer]) 08/02/2017 2:10 PM SignedEpisode Visit Count: 10Therapist That Will Oversee The Plan Of Care: Nathen Gonzalez CoreyStart of Care Date: 06/22/17Onset Date: 01/01/16REHABILITATION AND SPORTS THERAPYPHYSICAL THERAPY TREATMENT NOTEASSESSMENT:Improved trunk control with deep water progressions; similar control with trialof 1-2 hand support compared to initial visits with 2 hand support.Intermittent cues for posture with session today. No issue withentering/exiting pool independently today. Patient notified of next scheduledtherapy appointment date and time.PLAN FOR NEXT VISIT:Patient to follow up per PT plan. Continue to progress core stabilization andfunctional strengthening exercises as tolerated.SUBJECTIVE:Woke up stiff/sore this morning, but has since decreased after taking musclerelaxer earlier today.Pain Score: 610Pain Location: BackDescription: SoreFrequency: ContinuousPost Treatment Pain Score: No ChangeOBJECTIVE MEASURES WITH LEVEL OF FUNCTION:Patient entered and exited the pool via stairs,INDEPENDENTLY.Patien t accompanied by clinician in water throughout entire session,supervision unless otherwise noted.TREATMENT:Aquatic Therapy:Patient to follow up per PT plan. Continue to progress core stabilization andfunctional strengthening exercises as tolerated. Recheck next visitWater depth 4'0"-Right/Left side stepping over rocks x 2 lengths at pool wall-R/L gastroc stretch 2 x 20 seconds each, 2 hand support at pool wall-R/L trunk rotation with hands resting on kickboard, tolerable range, cues forab bracing as needed to change directions, x 10 each direction-Right/Left piriformis stretch 2x20 seconds 1 hand support at pool wallUpper extremity exercises performed mindful of dynamic lumbar stabilization,posture and forward visual gaze:-R/L alternating shoulder flexion/extension x10 each with Level 5 paddleresistance-R/L alternating shoulder abduction/adduction x10 each with Level 5 paddleresistance-R/L alternating shoulder horizontal abduction/adduction x10 each with Level 5paddle resistance-Bilateral shoulder rows x10 each with Level 5 paddle resistanceWater Depth 3'9"-Double leg squats with 2 hand support at pool wall with ab bracing on standing2 x 15, cues/education for tracking and alignmentWater depth 4'0"-R/L single leg squats with 2 hand support at pool wall 2 x10 each, cues fortolerable range-R/L single leg calf raises with 2 hand support at pool wall 2 x 10 eachWater Depth 5'0" (noodle under arms):Lower extremity exercises performed mindful of dynamic lumber stabilization,posture and forward visual gaze:R/L alternating hip Flexion/extension 'flutter kick' 45 seconds each with 1-2hand support at muscle shoals wallBilateral hip abduction/adduction 'jumping flor legs' 45 seconds each with 1-2support at muscle shoals wallBilateral bike (forward/backward) 45 seconds each with 1-2 hand support at [facility] knee tuck 1 x 15, with ab bracing on Lower Extremity extension, with 2hand support at [facility] Dangling float x 5 minutes spread before, in between and after above deep waterexercisesSkilled Intervention:Proper selection of treatments for this session based on clinical presentation,deficits, and needsSelection of water depth as appropriate to patient's tolerance for exercisesVerbal cues with demonstration required for proper techniqueVerbal cues required for core activation, postural control and forward visualgaze.Patient educated on rationale/technique for exercises/activities performed thissession.Billing:Sheets: Aquatics ([id number]): 1:1 time: 2 units: 23-37 minsTotal Time: 32 minutesFred Singh PTA, ATC [facility] PROGRESSon 07-26-2017 Protein mass conc HNO ID: [id number] thor: Fred ([employer]) Meg: (none)Author Type: Physical Therapy AssistantType: Progress NotesFiled: 07/26/2017 2:04 PMNote Text:Please see PT note dated today for aquatic therapy visit documentation fortoday's visit.Fred Singh PTA [facility] Protein mass conc HNO ID: [id number] thor: Nathen (Pt) Armin: (none)Author Type: Physical TherapistType: Progress NotesFiled: 07/26/2017 2:08 PMNote Text:Episode Visit Count: 7Therapist That Will Oversee The Plan Of Care: Nathen Gonzalez CoreyStart of Care Date: 06/22/17Onset Date: 04/04/15Patient Identified by Name and Date of : YesREHABILITATION AND SPORTS THERAPYPHYSICAL THERAPY PROGRESS REPORTPLAN OF CARE UPDATE:Assessment: Maricarmen Plasencia exhibits difficulty with ongoing pain andlimited mobility with increase pain low back and hips and lower extremityRIGHT LEFT . She continues to be limited with sitting, rising from achair, standing, walking, stair negotiation, bending, heavy exertion,lifting, physical activities, kneeling, squatting, driving, cleaning,cooking and dressing. She is progressing slower than expected towards hertherapy goals as demonstrated by: pain levels and PT feels pt needs to bein pool independent 2-3 x a week in addition to pt with aquatic therapy 2x a week.. She will benefit from continued skilled therapy requiringfurther progression in water in order to improve range of motion strengthflexibility and pain. Pt has a epidural injection scheduled for 08/08/2017.Functional gains: Improved gait qualityImproved ability to perform transfersImproved ability to climb stepsIncreased ROMIncreased strengthGoals for Episode of Care: created on 06/22/17 through 08/06/17Decrease pain low back RIGHT LEFT lower extremity (not met)Increase range of motion low back in flexion extension sb RIGHT LEFTrotation RIGHT LEFT with decrease pain (progressing )Increase hip mobility RIGHT LEFT extension adduction internal rotationexternal rotation with decrease low back pain (progressing)Ambulate with decrease assym and increase ease for increase duration oneven and uneven surface (progrerssing)Unilateral balance RIGHT LEFT x 10 sec (progressing)No give way episodes RIGHT or LEFT lower extremity (progressing nonereported)Agility walk all planes with decrease pain (progressing in water)Less dependence on meds to sleep and control pain (not met)[place] in home exercise program. (progressing in water)Planned Interventions, Frequency, and Duration: ,Patient to be seen forSUBJECTIVE: pt states she feel better in water but as soon as she getsout she has same or worse pain. Pt states that she feel better in thewater but as soon as she goes to shallower water she has same or worsepain as she gets out of the water.OBJECTIVE MEASURES WITH LEVEL OF FUNCTION: ambulate slow pace with increase pain low back RIGHT LEFT lower extremitywith assym due to back pain and weaknessarom low back flexion 90 extension 3 sb RIGHT 25 LEFT 28 rotation RIGHT 55LEFT 53Severe pain with any extension No pain with flexionNo pain complaints with sb RIGHT LEFT rotation RIGHT LEFTBilateral squats hip flexion 110 knee flexion 85 min increase painUnilateral balance RIGHT and LEFT 3-4 secUnilateral squat RIGHT with RIGHT hand touch hip flexion 75 knee [id number] squat LEFT with LEFT hand touch hip flexion 72 knee flexion 72Strength against PT resistanceRIGHT LEFT hip flexion 5/5 knee flexion 5/5 extension RIGHT 5/5 LEFT 5/5ankle df pf 5/5No increase pain reportedHip mobility RIGHT LEFT extension 5 with increase low back painAdduction 8 internal rotation RIGHT 45 LEFT 47 external rotation RIGHT 50LEFT 51No c/o increase pain reported todayTender to palpation midline of spine L1 thru S1 no changeAmbulate 12 steps reciprocal with 1 hand rail touch only for stabilityWith min to no assymTREATMENT:Sagittal Plane Frontal Plane Transverse PlaneX = neutral X = neutral X = neutralR = staggered right W = wide base E = external rotationL = staggered left N = narrow base I = internal [id number] letter = sagittal, 2nd letter = frontal, 3rd letter = transverseExamples: XXX = neutral, neutral, neutral RXE = right staggered, neutral width, toes outTherapeutic Exercise:1: sit to stand to sit x 72: arom low back stretch flex ext sb r l rot r l x 53: hip mob r l ext add ir er x 44: amb 300 ft level x 25: amb 12 steps recip x 16: b squats x 77: u squats r l x 3 with same side ue touch8: discuass progression of aquatics and no giveway weaknessSkilled Intervention: Patient was educated in proper exercise techniqueand purpose for exercises.Skilled judgment was provided in selection of appropriate interventions.Correct performance of therapeutic exercises was facilitated with verbal,visual and tactile cuing.Billing:Sudeep: Therapeutic Exercise ([id number]): 1:1 time: 38 minutes (3 units:38-52 mins)Total time: 40 minutesJatyrone [place], PTREHABILITATION AND SPORTS THERAPYPHYSICAL THERAPY TREATMENT NOTEASSESSMENT:Decreased pain with session today. Pending recheck with PT, patient maybenefit from continued skilled aquatic therapy to progressbalance/stability and functional strength/endurance in buoyantenvironment. Patient notified of next scheduled therapy appointment dateand time.PLAN FOR NEXT VISIT:Patient to follow up per PT plan. Continue to progress core stabilizationand functional strengthening exercises as tolerated.SUBJECTIVE:Rechec k with PT after visit today. Reports having continued low back/hipsoreness stiffness. Consult with pain MD yesterday, scheduled forinjections 08/08/17.Pre treatment pain: 7/10 low back/hipsPost Treatment pain: 6/10OBJECTIVE MEASURES WITH LEVEL OF FUNCTION:Patient entered and exited the pool via stairs reciprocally.Patient accompanied by clinician in water throughout entire session,supervision unless otherwise noted.TREATMENT:Aquatic Therapy:See note below. Upper/Lower extremity exercises performed mindful ofdynamic lumbar stabilization, posture and forward visual gaze:??Water depth 4'0"-Forward marching and backward walking x2 lengths each at pool wall forUpper Extremity assist as needed.Water Depth 4'3"-R/L gastroc stretch 2x20 seconds 2 hand support at pool wall-R/L trunk side bending, x 10 each direction, 1 hand support at pool wall-Clockwise/counterclock marti 'hoola hoop', tolerable range, with 2 handssupport at pool wall, 1 x 10 each direction-R/L hamstring stretch 2 x 20 seconds each, back to pool wall-Double leg squats with 2 hand support at pool wall with ab bracing onstanding 1 x 15, cues/education for tracking and alignmentWater Depth 5'0" (noodle under arms):Lower extremity exercises performed mindful of dynamic lumberstabilization, posture and forward visual gaze:R/L alternating hip Flexion/extension 'flutter kick' x45 seconds eachwith 2 hand support at pool wallBilateral hip abduction/adduction 'jumping flor legs' x45 seconds eachwith 2 support at pool wallBilateral bike (forward/backward) x45 seconds each with 2 hand support atpool wallDouble knee tuck 1 x 15, with ab bracing on Lower Extremity extension,with 2 hand support at pool wall Dangling float x 6 minutes spread before, in between and after above deepwater exercises???Skilled Intervention:Proper selection of treatments for this session based on clinicalpresentation, deficits, and needsSelection of water depth as appropriate to patient's tolerance forexercisesVerbal cues with demonstration required for proper techniqueVerbal cues required for core activation, postural control and forwardvisual gaze.Patient educated on rationale/technique for exercises/activities performedthis session.?Fransicoing:Sudeep: Aquatics ([id number]): 1:1 time: 2 units: 23-37 minsTotal time: 28 minutesFred Singh PTA ATC [facility] CNTHERAPYon 07-21-2017 CNTHERAPY OT/PT/Speech Visit (PTMCRM) -------MARICARMEN PLASENCIA ([id number]) 1975 FDate Time Provider Department07/21/17 12:00 PM FRED SINGH ([facility] [employer],ATC) PTMCRMEncounter Number: [id number] Time Provider Department [place]07/21/2017 12:00 PM [id number], COREY (FILLER SPREADER,*PTMNorthern Light Eastern Maine Medical CenterReason for Visit: Physical Therapy [503]Primary Visit Diagnosis:Chronic midline low back pain, with sciatica presence unspecified [M54.5, G89.29] Other Visit Diagnoses:Difficulty walking [R26.2] Hip stiffness, unspecified laterality [M25.659] Chronic midline back pain, unspecified back location [M54.9, G89.29]Allergies As of Date: 07/21/2017(No Known Allergies)Date Reviewed: 06/13/2017Reviewed by: Claire Canales Ma - Fully AssessedPrescriptions as of 07/21/2017 Sig: SUCRALFATE 1 GRAM TABLET Take 1 tablet by mouth before* OMEPRAZOLE 20 MG CAPSULE,DENIS* Take 1 capsule twice a day 1/* CYCLOBENZAPRINE 10 MG TABLET Take 1 tablet by mouth daily * NAPROXEN 250 MG TABLET Take 2 tablets by mouth twice* TRIAMTERENE 37.5 MG-HYDROCHLO* take 1 tablet by mouth once d* GABAPENTIN 300 MG CAPSULE Take 1 capsule by mouth twice* TIZANIDINE 2 MG CAPSULE Take 1 capsule by mouth three* MECLIZINE 25 MG TABLET Take 0.5-1 tablets by mouth e* ONDANSETRON HCL 4 MG TABLET Take 1 tablet by mouth every * COMPOUNDED PRESCRIPTION KNEE HIGH COMPRESSION STOCKIN* CPAP Please do mask refitting for * CPAP Change Auto PAP to 5-13 cm of* COMPOUNDED PRESCRIPTION Compression knee-highs for LE*Progress Notes:Fred Singh, F[employer] ATC 07/21/2017 2:31 PM SignedEpisode Visit Count: 6Therapist That Will Oversee The Plan Of Care: Nathen Gonzalez, [facility]yStart of Care Date: 06/22/17Onset Date: 04/04/15REHABILITATION AND SPORTS THERAPYPHYSICAL THERAPY TREATMENT NOTEASSESSMENT:Decreased overall pain levels since last visit. Denies change in tolerance toADLs. Improved deep water trunk control, no increase in pain with session today.Patient notified of next scheduled therapy appointment date and time.PLAN FOR NEXT VISIT:Patient to follow up per PT plan. Continue to progress core stabilization andfunctional strengthening exercises as tolerated. Recheck next visitSUBJECTIVE:Not as sore following last aquatic therapy visit compared to following previousvisits. Reports having intermittent sharp pain about Bilateral low backcurrently. Reports having transient tingling in both feet earlier this weekupon standing after prolonged sitting.Pain Score: 7/10Pain Location: BackDescription: SharpFrequency: IntermittentPost Treatment Pain Score: No ChangeOBJECTIVE MEASURES WITH LEVEL OF FUNCTION:Patient ambulates to/from locker room with decreased trunk rotation/arm swing.Patient entered and exited the pool via stairs, reciprocally; Supervision topass current channelPatient accompanied by clinician in water throughout entire session,supervision unless otherwise noted.TREATMENT:Aquatic Therapy:See note below. Upper/Lower extremity exercises performed mindful of dynamiclumbar stabilization, posture and forward visual gaze:Water depth 4'0"-R/L side stepping over rocks x4 lengths each at pool wall for Upper Extremityassist as needed.-R/L trunk rotation with hands resting on kickboard, tolerable range, cues forab bracing as needed to change directions, x 10 each direction-R/L trunk side bending, x 10 each direction, 1 hand support at pool wall-R/L hamstring stretch 2 x 20 seconds each, back to pool wallWater Depth 3'9" - 4'0" light-Double leg squats with 2 hand support at pool wall with ab bracing on standing1 x 15, cues/education for tracking and alignment-Bilateral heel and toe raises x15 each, with 2 hand support at pool wall,verbal cues and demonstration to perform while maintaining vertical trunkpositionWater Depth 4'3"-R/L hip flexion/extension, abduction/adduction x10 each with 1-2 hand supportat pool wall cues for posture and ab brace sequencingWater Depth 5'0" (noodle under arms):Lower extremity exercises performed mindful of dynamic lumber stabilization,posture and forward visual gaze:R/L alternating hip Flexion/extension 'flutter kick' 2x45 seconds each with 2hand support at pool wallBilateral hip abduction/adduction 'jumping flor legs' 2x45 seconds each with 2support at pool wallBilateral bike (forward/backward) 2x45 seconds each with 2 hand support at [facility] knee tuck 1 x 15, with ab bracing on Lower Extremity extension, with 2hand support at pool wall Dangling float x 10 minutes spread before, in between and after above deepwater exercisesSkilled Intervention:Proper selection of treatments for this session based on clinical presentation,deficits, and needsSelection of water depth as appropriate to patient's tolerance for exercisesVerbal cues with demonstration required for proper techniqueVerbal cues required for core activation, postural control and forward visualgaze.Patient educated on rationale/technique for exercises/activities performed thissession.Billing:Sheets: Aquatics ([id number]): 1:1 time: 3 units: 38-52 minsTotal Time: 40 minutesFred Singh PTA, ATC -- [facility] PROGRESSon 07-21-2017 Protein mass conc HNO ID: [id number] thor: Fred ([employer]) Meg: (none)Author Type: Physical Therapy AssistantType: Progress NotesFiled: 07/21/2017 2:31 PMNote Text:Episode Visit Count: 6Therapist That Will Oversee The Plan Of Care: Nathen Gonzalez CoreGuadalupe County Hospitalart [facility] Date: 06/22/17Onset Date: 04/04/15REHABILITATION AND SPORTS THERAPYPHYSICAL THERAPY TREATMENT NOTEASSESSMENT:Decreased overall pain levels since last visit. Denies change intolerance to ADLs. Improved deep water trunk control, no increase in painwith session today. Patient notified of next scheduled therapyappointment date and time.PLAN FOR NEXT VISIT:Patient to follow up per PT plan. Continue to progress core stabilizationand functional strengthening exercises as tolerated. Recheck next visitSUBJECTIVE:Not as sore following last aquatic therapy visit compared to followingprevious visits. Reports having intermittent sharp pain about Bilaterallow back currently. Reports having transient tingling in both feetearlier this week upon standing after prolonged sitting.Pain Score: 7/10Pain Location: BackDescription: SharpFrequency: IntermittentPost Treatment Pain Score: No ChangeOBJECTIVE MEASURES WITH LEVEL OF FUNCTION:Patient ambulates to/from locker room with decreased trunk rotation/armswing.Patient entered and exited the pool via stairs, reciprocally;Supervision to pass current channelPatient accompanied by clinician in water throughout entire session,supervision unless otherwise noted.TREATMENT:Aquatic Therapy:See note below. Upper/Lower extremity exercises performed mindful ofdynamic lumbar stabilization, posture and forward visual gaze:Water depth 4'0"-R/L side stepping over rocks x4 lengths each at pool wall for UpperExtremity assist as needed.-R/L trunk rotation with hands resting on kickboard, tolerable range, cuesfor ab bracing as needed to change directions, x 10 each direction-R/L trunk side bending, x 10 each direction, 1 hand support at pool wall-R/L hamstring stretch 2 x 20 seconds each, back to pool wallWater Depth 3'9" - 4'0" light-Double leg squats with 2 hand support at pool wall with ab bracing onstanding 1 x 15, cues/education for tracking and alignment-Bilateral heel and toe raises x15 each, with 2 hand support at poolwall, verbal cues and demonstration to perform while maintaining verticaltrunk positionWater Depth 4'3"-R/L hip flexion/extension, abduction/adduction x10 each with 1-2 handsupport at pool wall cues for posture and ab brace sequencingWater Depth 5'0" (noodle under arms):Lower extremity exercises performed mindful of dynamic lumberstabilization, posture and forward visual gaze:R/L alternating hip Flexion/extension 'flutter kick' 2x45 seconds eachwith 2 hand support at pool wallBilateral hip abduction/adduction 'jumping flor legs' 2x45 seconds eachwith 2 support at pool wallBilateral bike (forward/backward) 2x45 seconds each with 2 hand support atpool wallDouble knee tuck 1 x 15, with ab bracing on Lower Extremity extension,with 2 hand support at pool wall Dangling float x 10 minutes spread before, in between and after abovedeep water exercisesSkilled Intervention:Proper selection of treatments for this session based on clinicalpresentation, deficits, and needsSelection of water depth as appropriate to patient's tolerance forexercisesVerbal cues with demonstration required for proper techniqueVerbal cues required for core activation, postural control and forwardvisual gaze.Patient educated on rationale/technique for exercises/activities performedthis session.Billing:Sudeep: Aquatics ([id number]): 1:1 time: 3 units: 38-52 minsTotal Time: 40 minutesCorey MONSERRAT Singh, ATC [facility] CNTHERAPYon 2017 CNTHERAPY OT/PT/Speech Visit (PTMCRM) -------MARICARMEN PLASENCIA ([id number]) 1975 FDate Time Provider Department07/15/17 1:00 PM FRED SINGH (FILLER SPREADER,ATC) PTMCRMEncounter Number: [id number] Time Provider Department [place]2017 1:00 PM [id number], COREY (MONSERRAT,*[facility]MN[facility] RecMCReason for Visit: Physical Therapy [503]Primary Visit Diagnosis:Chronic midline low back pain, with sciatica presence unspecified [M54.5, G89.29] Other Visit Diagnoses:Difficulty walking [R26.2] Hip stiffness, unspecified laterality [M25.659] Chronic midline back pain, unspecified back location [M54.9, G89.29]Allergies As of Date: 2017(No Known Allergies)Date Reviewed: 06/13/2017Reviewed by: Claire Canales Ma - Fully AssessedPrescriptions as of 2017 Sig: SUCRALFATE 1 GRAM TABLET Take 1 tablet by mouth before* OMEPRAZOLE 20 MG CAPSULE,DENIS* Take 1 capsule twice a day 1/* CYCLOBENZAPRINE 10 MG TABLET Take 1 tablet by mouth daily * NAPROXEN 250 MG TABLET Take 2 tablets by mouth twice* TRIAMTERENE 37.5 MG-HYDROCHLO* take 1 tablet by mouth once d* GABAPENTIN 300 MG CAPSULE Take 1 capsule by mouth twice* TIZANIDINE 2 MG CAPSULE Take 1 capsule by mouth three* MECLIZINE 25 MG TABLET Take 0.5-1 tablets by mouth e* ONDANSETRON HCL 4 MG TABLET Take 1 tablet by mouth every * COMPOUNDED PRESCRIPTION KNEE HIGH COMPRESSION STOCKIN* CPAP Please do mask refitting for * CPAP Change Auto PAP to 5-13 cm of* COMPOUNDED PRESCRIPTION Compression knee-highs for LE*Progress Notes:Fred Singh PTA ATC 2017 2:54 PM SignedEpisode Visit Count: 5Therapist That Will Oversee The Plan Of Care: Nathen Gonzalez [facility] Date: 06/22/17Onset Date: 04/04/15REHABILITATION AND SPORTS THERAPYPHYSICAL THERAPY TREATMENT NOTEASSESSMENT:Again, adjusted water depth today as appropriate to patients tolerance forexercises, assess response to change next visit. Decreased pain with sessiontoday. Patient reports general body/LE fatigue and compression sensation uponexiting pool, patient advised to rest as needed at benches prior to walking [facility], allowing body to become re-acclimated to full weight bearingstatus. Patient requires cues/demonstration for proper form/technique, ab bracesequencing, to perform exercises within a tolerable range of motion withappropriate amount of hand support at pool wall to maintain postural stabilityand forward visual gaze. Patient notified of next scheduled therapyappointment date and time.PLAN FOR NEXT VISIT:Patient to follow up per PT plan. Continue to progress core stabilization andfunctional strengthening exercises as tolerated.SUBJECTIVE:Report s having increased pain following performing portions of aquatic therapyexercises in [facility] earlier this week.Pain Score: 9/10Pain Location: BackDescription: PressurePost Treatment Pain Score: 6/10OBJECTIVE MEASURES WITH LEVEL OF FUNCTION:Patient ambulates to/from locker room with decreased trunk rotation/arm swing.Patient entered and exited the pool via stairs, reciprocally; Supervision topass current channelPatient accompanied by clinician in water throughout entire session,supervision unless otherwise noted.TREATMENT:Aquatic Therapy:See note below. Upper/Lower extremity exercises performed mindful of dynamiclumbar stabilization, posture and forward visual gaze:Water depth 4'0"-R/L side stepping, forward marching and backward walking x2 lengths each atpool wall for Upper Extremity assist as needed. Verbal cues for stride length,upright posture and forward visual gazeWater Depth 4'3"-R/L hamstring stretch 2 x 20 seconds each, back to pool wall-R/L gastroc stretch 2 x 20 seconds each, 2 hand support at pool wall-Clockwise/counterclock marti 'hoola hoop', tolerable range, with 2 hands supportat pool wall, 1 x 10 each direction-R/L hamstring curls x 10 each with 2 hand support at pool wall, cues fortolerable range while limiting hip flexion.-R/L LAQ's x10 each with no resistance, with 1 hand support at pool wall, cuesfor ankle DF on end range extensionWater Depth 5'0" (noodle under arms):Lower extremity exercises performed mindful of dynamic lumber stabilization,posture and forward visual gaze:R/L alternating hip Flexion/extension 'flutter kick' x45 seconds each with 2hand support at pool wallBilateral hip abduction/adduction 'jumping flor legs' x45 seconds each with 2support at pool wallBilateral bike (forward/backward) x45 seconds each with 2 hand support at muscle shoalswallDouble knee tuck 1 x 15, with ab bracing on Lower Extremity extension, with 2hand support at pool wall Dangling float x 8 minutes spread before, in between and after above deep waterexercisesSkilled Intervention:Proper selection of treatments for this session based on clinical presentation,deficits, and needsSelection of water depth as appropriate to patient's tolerance for exercisesVerbal cues with demonstration required for proper techniqueVerbal cues required for core activation, postural control and forward visualgaze.Patient educated on rationale/technique for exercises/activities performed thissession.Billing:Sudeep: Eleuterios ([id number]): 1:1 time: 2 units: 23-37 minsTotal Time: 30 minutesCoretyrone Singh PTA, ATC -- [facility] PROGRESSon 2017 Protein mass conc HNO ID: [id number] thor: Fred ([facility]) Dmitriye: (none)Author Type: Physical Therapy AssistantType: Progress NotesFiled: 2017 2:54 PMNote Text:Episode Visit Count: 5Therapist That Will Oversee The Plan Of Care: Nathen Gonzalez, CoreyStart of Care Date: 06/22/17Onset Date: 04/04/15REHABILITATION AND SPORTS THERAPYPHYSICAL THERAPY TREATMENT NOTEASSESSMENT:Again, adjusted water depth today as appropriate to patients tolerance forexercises, assess response to change next visit. Decreased pain withsession today. Patient reports general body/LE fatigue and compressionsensation upon exiting pool, patient advised to rest as needed atbenches prior to walking to locker room, allowing body to becomere-acclimated to full weight bearing status. Patient requirescues/demonstration for proper form/technique, ab brace sequencing, toperform exercises within a tolerable range of motion with appropriateamount of hand support at pool wall to maintain postural stability andforward visual gaze. Patient notified of next scheduled therapyappointment date and time.PLAN FOR NEXT VISIT:Patient to follow up per PT plan. Continue to progress core stabilizationand functional strengthening exercises as tolerated.SUBJECTIVE:Report s having increased pain following performing portions of aquatictherapy exercises in [facility] earlier this week.Pain Score: 9/10Pain Location: BackDescription: PressurePost Treatment Pain Score: 6/10OBJECTIVE MEASURES WITH LEVEL OF FUNCTION:Patient ambulates to/from locker room with decreased trunk rotation/armswing.Patient entered and exited the pool via stairs, reciprocally;Supervision to pass current channelPatient accompanied by clinician in water throughout entire session,supervision unless otherwise noted.TREATMENT:Aquatic Therapy:See note below. Upper/Lower extremity exercises performed mindful ofdynamic lumbar stabilization, posture and forward visual gaze:Water depth 4'0"-R/L side stepping, forward marching and backward walking x2 lengths eachat pool wall for Upper Extremity assist as needed. Verbal cues for stridelength, upright posture and forward visual gazeWater Depth 4'3"-R/L hamstring stretch 2 x 20 seconds each, back to pool wall-R/L gastroc stretch 2 x 20 seconds each, 2 hand support at pool wall-Clockwise/counterclock marti 'hoola hoop', tolerable range, with 2 handssupport at pool wall, 1 x 10 each direction-R/L hamstring curls x 10 each with 2 hand support at pool wall, cues fortolerable range while limiting hip flexion.-R/L LAQ's x10 each with no resistance, with 1 hand support at pool wall,cues for ankle DF on end range extensionWater Depth 5'0" (noodle under arms):Lower extremity exercises performed mindful of dynamic lumberstabilization, posture and forward visual gaze:R/L alternating hip Flexion/extension 'flutter kick' x45 seconds eachwith 2 hand support at pool wallBilateral hip abduction/adduction 'jumping flor legs' x45 seconds eachwith 2 support at pool wallBilateral bike (forward/backward) x45 seconds each with 2 hand support atpool wallDouble knee tuck 1 x 15, with ab bracing on Lower Extremity extension,with 2 hand support at pool wall Dangling float x 8 minutes spread before, in between and after above deepwater exercisesSkilled Intervention:Proper selection of treatments for this session based on clinicalpresentation, deficits, and needsSelection of water depth as appropriate to patient's tolerance forexercisesVerbal cues with demonstration required for proper techniqueVerbal cues required for core activation, postural control and forwardvisual gaze.Patient educated on rationale/technique for exercises/activities performedthis session.Fransicoing:Sudeep: Aquatics ([id number]): 1:1 time: 2 units: 23-37 minsTotal Time: 30 minutesFred Singh PTA, ATC [facility] CNTHERAPYon 07-07-2017 CNTHERAPY OT/PT/Speech Visit (PTMCRM) -------MARICARMEN PLASENCIA ([id number]) 1975 FDate Time Provider Department07/07/17 8:00 AM FRED SINGH (MONSERRAT,ATC) PTMCRMEncounter Number: [id number] Time Provider Department [place]07/07/2017 8:00 AM [id number], COREY (FILLER SPREADER,*PTMCary Medical Centerason for Visit: Physical Therapy [503]Primary Visit Diagnosis:Chronic midline low back pain, with sciatica presence unspecified [M54.5, G89.29] Other Visit Diagnoses:Difficulty walking [R26.2] Hip stiffness, unspecified laterality [M25.659] Chronic midline back pain, unspecified back location [M54.9, G89.29]Allergies As of Date: 07/07/2017(No Known Allergies)Date Reviewed: 06/13/2017Reviewed by: Claire Canales Ma - Fully AssessedPrescriptions as of 07/07/2017 Sig: CYCLOBENZAPRINE 10 MG TABLET Take 1 tablet by mouth daily * NAPROXEN 250 MG TABLET Take 2 tablets by mouth twice* TRIAMTERENE 37.5 MG-HYDROCHLO* take 1 tablet by mouth once d* GABAPENTIN 300 MG CAPSULE Take 1 capsule by mouth twice* OMEPRAZOLE 20 MG CAPSULE,DENIS* Take 1 capsule twice a day 1/* TIZANIDINE 2 MG CAPSULE Take 1 capsule by mouth three* MECLIZINE 25 MG TABLET Take 0.5-1 tablets by mouth e* ONDANSETRON HCL 4 MG TABLET Take 1 tablet by mouth every * SUCRALFATE 1 GRAM TABLET Take 1 tablet by mouth before* COMPOUNDED PRESCRIPTION KNEE HIGH COMPRESSION STOCKIN* CPAP Please do mask refitting for * CPAP Change Auto PAP to 5-13 cm of* COMPOUNDED PRESCRIPTION Compression knee-highs for LE*Progress Notes:Fred Singh PTA ATC 07/07/2017 10:45 AM SignedEpisode Visit Count: 4Therapist That Will Oversee The Plan Of Care: Nathen Gonzalez, CoreyStart of Care Date: 06/22/17Onset Date: 04/04/15REHABILITATION AND SPORTS THERAPYPHYSICAL THERAPY TREATMENT NOTEASSESSMENT:Adjusted water depth today as appropriate to patients tolerance for exercises,assess response to change next visit. Reviewed expectation ofsoreness/discomfort with progression of therapy and that is normal, patientagreeable. Encouraged continued frequent/proactive use of ice for acute paincontrol as needed vs heat pack.Patient notified of next scheduled therapy appointment date and time.PLAN FOR NEXT VISIT:Patient to follow up per PT plan. Continue to progress core stabilization andfunctional strengthening exercises as tolerated.SUBJECTIVE:Report s having 10/10 low back soreness yesterday following aquatic therapy visit2 days ago; pain has since decreased to 8/10. Continues to take muscle relaxerat night and using heating pad for symptom control.Pain Score: 8/10Pain Location: BackDescription: SoreFrequency: ContinuousPost Treatment Pain Score: No ChangeOBJECTIVE MEASURES WITH LEVEL OF FUNCTION:Patient ambulates to/from locker room with decreased trunk rotation/arm swing.Patient entered and exited the pool via stairs, reciprocally; Supervision topass current channelPatient accompanied by clinician in water throughout entire session,supervision unless otherwise noted.TREATMENT:Aquatic Therapy:See note below. Upper/Lower extremity exercises performed mindful of dynamiclumbar stabilization, posture and forward visual gaze:Water depth 4'0"-R/L side stepping over rocks x4 lengths each at pool wall for Upper Extremityassist as needed. Verbal cues for stride length, upright posture and forwardvisual gaze-R/L gastroc stretch 2 x 20 seconds each, 2 hand support at pool wall-Clockwise/counterclock marti 'hoola hoop', tolerable range, with 2 hands supportat pool wall, 1 x 10 each direction-R/L piriformis stretch 2x20 second, 1 hand support at pool wall-R/L trunk side bending, x 10 each direction, 1 hand support at pool wallUpper extremity exercises performed mindful of dynamic lumbar stabilization,posture and forward visual gaze:-R/L alternating shoulder flexion/extension x10 each with Level 1 paddleresistance-R/L alternating shoulder abduction/adduction x10 each with Level 1 paddleresistance-R/L alternating shoulder horizontal abduction/adduction x10 each with Level 1paddle resistance-Bilateral shoulder rows x15 each with Level 1 paddle resistanceWater Depth 5'0" (noodle under arms):Lower extremity exercises performed mindful of dynamic lumber stabilization,posture and forward visual gaze:R/L alternating hip Flexion/extension 'flutter kick' 2x45 seconds each with 2hand support at pool wallBilateral hip abduction/adduction 'jumping flor legs' 2x45 seconds each with 2support at pool wallBilateral bike (forward/backward) 2x45 seconds each with 2 hand support at poolwall Dangling float x 8 minutes spread before, in between and after above deep waterexercisesSkilled Intervention:Proper selection of treatments for this session based on clinical presentation,deficits, and needsSelection of water depth as appropriate to patient's tolerance for exercisesVerbal cues with demonstration required for proper techniqueVerbal cues required for core activation, postural control and forward visualgaze.Patient educated on rationale/technique for exercises/activities performed thissession.Billing:Sheets: Aquatics ([id number]): 1:1 time: 2 units: 23-37 minsTotal Time: 29 minutesCorey MONSERRAT Singh ATC -- [facility] PROGRESSon 07-07-2017 Protein mass conc HNO ID: [id number] thor: Fred (Monserrat Atc) Dmitriye: (none)Author Type: Physical Therapy AssistantType: Progress NotesFiled: 07/07/2017 10:45 AMNote Text:Episode Visit Count: 4Therapist That Will Oversee The Plan Of Care: [place], Nathen Gildea, [facility] of Care Date: 06/22/17Onset Date: 04/04/15REHABILITATION AND SPORTS THERAPYPHYSICAL THERAPY TREATMENT NOTEASSESSMENT:Adjusted water depth today as appropriate to patients tolerance forexercises, assess response to change next visit. Reviewed expectation ofsoreness/discomfort with progression of therapy and that is normal,patient agreeable. Encouraged continued frequent/proactive use of ice foracute pain control as needed vs heat pack.Patient notified of next scheduled therapy appointment date and time.PLAN FOR NEXT VISIT:Patient to follow up per PT plan. Continue to progress core stabilizationand functional strengthening exercises as tolerated.SUBJECTIVE:Report s having 10/10 low back soreness yesterday following aquatic therapyvisit 2 days ago; pain has since decreased to 8/10. Continues to takemuscle relaxer at night and using heating pad for symptom control.Pain Score: 8/10Pain Location: BackDescription: SoreFrequency: ContinuousPost Treatment Pain Score: No ChangeOBJECTIVE MEASURES WITH LEVEL OF FUNCTION:Patient ambulates to/from locker room with decreased trunk rotation/armswing.Patient entered and exited the pool via stairs, reciprocally;Supervision to pass current channelPatient accompanied by clinician in water throughout entire session,supervision unless otherwise noted.TREATMENT:Aquatic Therapy:See note below. Upper/Lower extremity exercises performed mindful ofdynamic lumbar stabilization, posture and forward visual gaze:Water depth 4'0"-R/L side stepping over rocks x4 lengths each at pool wall for UpperExtremity assist as needed. Verbal cues for stride length, upright postureand forward visual gaze-R/L gastroc stretch 2 x 20 seconds each, 2 hand support at pool wall-Clockwise/counterclock amrti 'hoola hoop', tolerable range, with 2 handssupport at pool wall, 1 x 10 each direction-R/L piriformis stretch 2x20 second, 1 hand support at pool wall-R/L trunk side bending, x 10 each direction, 1 hand support at pool wallUpper extremity exercises performed mindful of dynamic lumbarstabilization, posture and forward visual gaze:-R/L alternating shoulder flexion/extension x10 each with Level 1 paddleresistance-R/L alternating shoulder abduction/adduction x10 each with Level 1 paddleresistance-R/L alternating shoulder horizontal abduction/adduction x10 each withLevel 1 paddle resistance-Bilateral shoulder rows x15 each with Level 1 paddle resistanceWater Depth 5'0" (noodle under arms):Lower extremity exercises performed mindful of dynamic lumberstabilization, posture and forward visual gaze:R/L alternating hip Flexion/extension 'flutter kick' 2x45 seconds eachwith 2 hand support at pool wallBilateral hip abduction/adduction 'jumping flor legs' 2x45 seconds eachwith 2 support at pool wallBilateral bike (forward/backward) 2x45 seconds each with 2 hand support atpool wall Dangling float x 8 minutes spread before, in between and after above deepwater exercisesSkilled Intervention:Proper selection of treatments for this session based on clinicalpresentation, deficits, and needsSelection of water depth as appropriate to patient's tolerance forexercisesVerbal cues with demonstration required for proper techniqueVerbal cues required for core activation, postural control and forwardvisual gaze.Patient educated on rationale/technique for exercises/activities performedthis session.Billing:Sudeep: Aquatics ([id number]): 1:1 time: 2 units: 23-37 minsTotal Time: 29 minutesCorey MONSERRAT Singh, NISHA [facility] CNTHERAPYon 07-05-2017 CNTHERAPY OT/PT/Speech Visit (PTMCRM) -------MARICARMEN PLASENCIA ([id number]) 1975 FDate Time Provider Department07/05/17 4:00 PM FRED SINGH (MONSERRAT,ATC) PTMCRMEncounter Number: [id number] Time Provider Department [place]07/05/2017 4:00 PM [id number], COREY (FILLER SPREADER,*PTMCRM [place] RecMCReason for Visit: Physical Therapy [503]Primary Visit Diagnosis:Chronic midline low back pain, with sciatica presence unspecified [M54.5, G89.29] Other Visit Diagnoses:Difficulty walking [R26.2] Hip stiffness, unspecified laterality [M25.659] Chronic midline back pain, unspecified back location [M54.9, G89.29]Allergies As of Date: 07/05/2017(No Known Allergies)Date Reviewed: 06/13/2017Reviewed by: Claire Canales Ma - Fully AssessedPrescriptions as of 07/05/2017 Sig: CYCLOBENZAPRINE 10 MG TABLET Take 1 tablet by mouth daily * NAPROXEN 250 MG TABLET Take 2 tablets by mouth twice* TRIAMTERENE 37.5 MG-HYDROCHLO* take 1 tablet by mouth once d* GABAPENTIN 300 MG CAPSULE Take 1 capsule by mouth twice* OMEPRAZOLE 20 MG CAPSULE,DENIS* Take 1 capsule twice a day 1/* TIZANIDINE 2 MG CAPSULE Take 1 capsule by mouth three* MECLIZINE 25 MG TABLET Take 0.5-1 tablets by mouth e* ONDANSETRON HCL 4 MG TABLET Take 1 tablet by mouth every * SUCRALFATE 1 GRAM TABLET Take 1 tablet by mouth before* COMPOUNDED PRESCRIPTION KNEE HIGH COMPRESSION STOCKIN* CPAP Please do mask refitting for * CPAP Change Auto PAP to 5-13 cm of* COMPOUNDED PRESCRIPTION Compression knee-highs for LE*Progress Notes:Fred Singh PTA ATC 07/05/2017 6:03 PM SignedEpisode Visit Count: 3Therapist That Will Oversee The Plan Of Care: Nathen Gonzalez [facility] Date: 06/22/17Onset Date: 04/04/15REHABILITATION AND SPORTS THERAPYPHYSICAL THERAPY TREATMENT NOTEASSESSMENT:Patient reports general body/LE fatigue and compression sensation upon exitingpo, patient advised to rest as needed at benches prior to walking to [facility], allowing body to become re-acclimated to full weight bearing status.Patient requires cues/demonstration for proper form/technique, ab bracesequencing, to perform exercises within a tolerable range of motion withappropriate amount of hand support at pool wall to maintain postural stabilityand forward visual gaze. Slight decrease in pain post session. Improved deepwater trunk control. Patient notified of next scheduled therapy appointment dateand time.PLAN FOR NEXT VISIT:Patient to follow up per PT plan. Continue to progress core stabilization andfunctional strengthening exercises as tolerated.SUBJECTIVE:No show last visit, 12 days since first aquatic therapy visit. Reports feelinggood for ~1 day following first aquatic therapy visit. Reports having low backache/soreness today.Pain Score: 7/10Pain Location: BackDescription: Sore;AchingFrequency: ContinuousPost Treatment Pain Score: 6/10OBJECTIVE MEASURES WITH LEVEL OF FUNCTION:Patient ambulates to/from locker room with decreased trunk rotation/arm swing.Patient entered and exited the pool via stairs, reciprocally; Supervision topass current channelPatient accompanied by clinician in water throughout entire session,supervision unless otherwise noted.TREATMENT:Aquatic Therapy:See note below. Upper/Lower extremity exercises performed mindful of dynamiclumbar stabilization, posture and forward visual gaze:Water Depth 3'9" - 4'0" light-Walking fbackward, R/L side stepping and forward walking june x2 lengths eachat pool wall for Upper Extremity assist as needed. Verbal cues for stridelength, upright posture and forward visual gaze-R/L trunk rotation with hands resting on kickboard, tolerable range, cues forab bracing as needed to change directions, x 10 each direction-R/L trunk side bending, x 10 each direction, 1 hand support at pool wall-R/L hamstring stretch 2 x 20 seconds each, 1 hand support at pool wall-R/L gastroc stretch 2 x 20 seconds each, 2 hand support at pool wall-R/L hip flexion/extension, abduction/adduction x10 each with 1-2 hand supportat pool wall, cues for posture and ab brace sequencingWater Depth 3'9" (Decreased water depth compared to last visit)-Bilateral heel and toe raises x15 each, with 2 hand support at pool wall,verbal cues and demonstration to perform while maintaining vertical trunkposition-Double leg squats with 2 hand support at pool wall with ab bracing on standing1 x 15, cues/education for tracking and alignmentWater Depth 5'0" (noodle under arms):Lower extremity exercises performed mindful of dynamic lumber stabilization,posture and forward visual gaze:R/L alternating hip Flexion/extension 'flutter kick' x45 seconds each with 2hand support at pool wallBilateral hip abduction/adduction 'jumping flor legs' x45 seconds each with 2support at pool wallBilateral bike (forward/backward) x45 seconds each with 2 hand support at [facility] knee tuck 1 x 10, with ab bracing on Lower Extremity extension, with 2hand support at muscle shoals wallDangling float x 5 minutes spread before, in between and after above deep waterexercisesSkilled Intervention:Proper selection of treatments for this session based on clinical presentation,deficits, and needsSelection of water depth as appropriate to patient's tolerance for exercisesVerbal cues with demonstration required for proper techniqueVerbal cues required for core activation, postural control and forward visualgaze.Patient educated on rationale/technique for exercises/activities performed thissession.Billing:[place]: [employer] ([id number]): 1:1 time: 2 units: 23-37 minsTotal Time: 28 minutesFred Singh PTA, ATC -- [facility] PROGRESSon 07-05-2017 Protein mass conc HNO ID: [id number] thor: Fred ([facility]) Meg: (none)Author Type: Physical Therapy AssistantType: Progress NotesFiled: 07/05/2017 6:03 PMNote Text:Episode Visit Count: 3Therapist That Will Oversee The Plan Of Care: Nathen Gonzalez [facility] Date: 06/22/17Onset Date: 04/04/15REHABILITATION AND SPORTS THERAPYPHYSICAL THERAPY TREATMENT NOTEASSESSMENT:Patient reports general body/LE fatigue and compression sensation uponexiting pool, patient advised to rest as needed at benches prior towalking to locker room, allowing body to become re-acclimated to fullweight bearing status.Patient requires cues/demonstration for proper form/technique, ab bracesequencing, to perform exercises within a tolerable range of motion withappropriate amount of hand support at pool wall to maintain posturalstability and forward visual gaze. Slight decrease in pain post session. Improved deep water trunk control. Patient notified of next scheduledtherapy appointment date and time.PLAN FOR NEXT VISIT:Patient to follow up per PT plan. Continue to progress core stabilizationand functional strengthening exercises as tolerated.SUBJECTIVE:No show last visit, 12 days since first aquatic therapy visit. Reportsfeeling good for ~1 day following first aquatic therapy visit. Reportshaving low back ache/soreness today.Pain Score: 7/10Pain Location: BackDescription: Sore;AchingFrequency: ContinuousPost Treatment Pain Score: 6/10OBJECTIVE MEASURES WITH LEVEL OF FUNCTION:Patient ambulates to/from locker room with decreased trunk rotation/armswing.Patient entered and exited the pool via stairs, reciprocally;Supervision to pass current channelPatient accompanied by clinician in water throughout entire session,supervision unless otherwise noted.TREATMENT:Aquatic Therapy:See note below. Upper/Lower extremity exercises performed mindful ofdynamic lumbar stabilization, posture and forward visual gaze:Water Depth 3'9" - 4'0" light-Walking fbackward, R/L side stepping and forward walking june [id number] each at pool wall for Upper Extremity assist as needed. Verbalcues for stride length, upright posture and forward visual gaze-R/L trunk rotation with hands resting on kickboard, tolerable range, cuesfor ab bracing as needed to change directions, x 10 each direction-R/L trunk side bending, x 10 each direction, 1 hand support at pool wall-R/L hamstring stretch 2 x 20 seconds each, 1 hand support at pool wall-R/L gastroc stretch 2 x 20 seconds each, 2 hand support at pool wall-R/L hip flexion/extension, abduction/adduction x10 each with 1-2 handsupport at pool wall, cues for posture and ab brace sequencingWater Depth 3'9" (Decreased water depth compared to last visit)-Bilateral heel and toe raises x15 each, with 2 hand support at poolwall, verbal cues and demonstration to perform while maintaining verticaltrunk position-Double leg squats with 2 hand support at pool wall with ab bracing onstanding 1 x 15, cues/education for tracking and alignmentWater Depth 5'0" (noodle under arms):Lower extremity exercises performed mindful of dynamic lumberstabilization, posture and forward visual gaze:R/L alternating hip Flexion/extension 'flutter kick' x45 seconds eachwith 2 hand support at pool wallBilateral hip abduction/adduction 'jumping flor legs' x45 seconds eachwith 2 support at pool wallBilateral bike (forward/backward) x45 seconds each with 2 hand support atpool wallDouble knee tuck 1 x 10, with ab bracing on Lower Extremity extension,with 2 hand support at pool wallDangling float x 5 minutes spread before, in between and after above deepwater exercisesSkilled Intervention:Proper selection of treatments for this session based on clinicalpresentation, deficits, and needsSelection of water depth as appropriate to patient's tolerance forexercisesVerbal cues with demonstration required for proper techniqueVerbal cues required for core activation, postural control and forwardvisual gaze.Patient educated on rationale/technique for exercises/activities performedthis session.Billing:[place]: Aquatics ([id number]): 1:1 time: 2 units: 23-37 minsTotal Time: 28 minutesCorey MONSERRAT Singh, ATC [facility] CNTHERAPYon 06-30-2017 CNTHERAPY OT/PT/Speech Visit (PTMCRM) -------MARICARMEN PLASENCIA ([id number]) 1975 FDate Time Provider Department06/30/17 9:00 AM FRED SINGH ([facility],ATC) PTMCRMEncounter Number: [id number] Time Provider Department [place]06/30/2017 9:00 AM [id number], COREY ([facility],*PTMCRM [place] RecMCReason for Visit: No Show [1558] Cmt: No showPrimary Visit Diagnosis:NO SHOWAllergies As of Date: 06/30/2017(No Known Allergies)Date Reviewed: 06/13/2017Reviewed by: Claire Canales Ma - Fully AssessedPrescriptions as of 06/30/2017 Sig: CYCLOBENZAPRINE 10 MG TABLET Take 1 tablet by mouth daily * NAPROXEN 250 MG TABLET Take 2 tablets by mouth twice* TRIAMTERENE 37.5 MG-HYDROCHLO* take 1 tablet by mouth once d* GABAPENTIN 300 MG CAPSULE Take 1 capsule by mouth twice* OMEPRAZOLE 20 MG CAPSULE,DENIS* Take 1 capsule twice a day 1/* TIZANIDINE 2 MG CAPSULE Take 1 capsule by mouth three* MECLIZINE 25 MG TABLET Take 0.5-1 tablets by mouth e* ONDANSETRON HCL 4 MG TABLET Take 1 tablet by mouth every * SUCRALFATE 1 GRAM TABLET Take 1 tablet by mouth before* COMPOUNDED PRESCRIPTION KNEE HIGH COMPRESSION STOCKIN* CPAP Please do mask refitting for * CPAP Change Auto PAP to 5-13 cm of* COMPOUNDED PRESCRIPTION Compression knee-highs for LE*Progress Notes:Fred Singh PTA ATC 06/30/2017 10:47 AM SignedThe patient did not show up for this appointment.Fred Singh PTA ATCThe patient did not show up for this appointment.Fred Singh PTA ATC -- [facility] PROGRESSon 06-30-2017 Protein mass conc HNO ID: [id number] thor: Fred ([facility]) Meg: (none)Author Type: Physical Therapy AssistantType: Progress NotesFiled: 06/30/2017 10:47 AMNote Text:The patient did not show up for this appointment.Fred Singh PTA ATCThe patient did not show up for this appointment.Fred Singh PTA ATC [facility] CNTHERAPYon 06-23-2017 CNTHERAPY OT/PT/Speech Visit (PTMCRM) -------MARICARMEN PLASENCIA ([id number]) 1975 FDate Time Provider Department06/23/17 12:30 PM FRED SINGH ([facility]ER,ATC) PTMCRMEncounter Number: [id number] Time Provider Department [place]06/23/2017 12:30 PM [id number], COREY ([facility]ER,*PTMCRM [facility]Reason [facility]: Physical Therapy [503]Primary Visit Diagnosis:Chronic midline low back pain, with sciatica presence unspecified [M54.5, G89.29] Other Visit Diagnoses:Difficulty walking [R26.2] Hip stiffness, unspecified laterality [M25.659] Chronic midline back pain, unspecified back location [M54.9, G89.29]Allergies As of Date: 06/23/2017(No Known Allergies)Date Reviewed: 06/13/2017Reviewed by: Claire Canales Ma - Fully AssessedPrescriptions as of 06/23/2017 Sig: CYCLOBENZAPRINE 10 MG TABLET Take 1 tablet by mouth daily * NAPROXEN 250 MG TABLET Take 2 tablets by mouth twice* TRIAMTERENE 37.5 MG-HYDROCHLO* take 1 tablet by mouth once d* GABAPENTIN 300 MG CAPSULE Take 1 capsule by mouth twice* OMEPRAZOLE 20 MG CAPSULE,DENIS* Take 1 capsule twice a day 1/* TIZANIDINE 2 MG CAPSULE Take 1 capsule by mouth three* MECLIZINE 25 MG TABLET Take 0.5-1 tablets by mouth e* ONDANSETRON HCL 4 MG TABLET Take 1 tablet by mouth every * SUCRALFATE 1 GRAM TABLET Take 1 tablet by mouth before* COMPOUNDED PRESCRIPTION KNEE HIGH COMPRESSION STOCKIN* CPAP Please do mask refitting for * CPAP Change Auto PAP to 5-13 cm of* COMPOUNDED PRESCRIPTION Compression knee-highs for LE*Progress Notes:Fred Singh PTA ATC 06/23/2017 2:59 PM SignedEpisode Visit Count: 2Therapist That Will Oversee The Plan Of Care: Nathen Gonzalez CoreyStart of Care Date: 06/22/17Onset Date: 04/04/15REHABILITATION AND SPORTS THERAPYPHYSICAL THERAPY TREATMENT NOTEASSESSMENT:Decreased pain post session. Patient reports general body/LE fatigue andcompression sensation upon exiting pool, patient advised to rest as needed atbenches prior to walking to locker room, allowing body to become re-acclimatedto full weight bearing status.Education throughout regarding importance of performance of exercises in pool [place] smooth and controlled fashion, within tolerable ranges with Upper Extremitysupport as needed to maintain postural control. Patient made aware of patientonly priority parking spots in parking lot. Patient advised to performexercises on land that have been prescribed with land therapy thus far.Exercises performed in the pool are not to be performed on land, unlessspecified. The patient will continue to benefit from continued skilled physical therapyfor progression of functional strength and core stability.PLAN FOR NEXT VISIT:Patient to follow up per PT plan. Continue to progress core stabilization andfunctional strengthening exercises as tolerated.SUBJECTIVE:No pool access currently. Reports no change in status since evaluationyesterday. Increased low to mid back pain with prolonged standing, sitting.Using muscle relaxer at night to sleep.Pain Score: 6/10Pain Location: (Low to mid back)Description: (Constant ache, intermittent sharp especially about mid back)Frequency: ContinuousPost Treatment Pain Score: 5/10OBJECTIVE MEASURES WITH LEVEL OF FUNCTION:Patient ambulates to/from locker room with decreased trunk rotation/arm swing.Patient entered and exited the pool via stairs, reciprocally; SBA to passcurrent channelPatient accompanied by clinician in water throughout entire session, SBA unlessotherwise noted.Increased turbulence in pool today due to number of patrons nearby. Patienteducated to perform exercises within controlled/tolerable ROM in light ofincreased turbulence.TREATMENT:Aquati c Therapy:See note below. Upper/Lower extremity exercises performed mindful of dynamiclumbar stabilization, posture and forward visual gaze:Water Depth 3'9"-Bilateral scapular retraction/depression with concurrent ab brace, and glutesets 10 x 5 seconds, 2 hand support at pool wall.-Walking forward, backward, side to side, side to side over rocks, and forwardwalking march x2 lengths each at pool wall for Upper Extremity assist asneeded. Verbal cues for stride length, upright posture and forward visual gazeWater Depth 3'9" - 4'0" light-R/L hamstring stretch 2 x 20 seconds each, 1 hand support at pool wall-R/L gastroc stretch 2 x 20 seconds each, 2 hand support at pool wall-Clockwise/counterclock marti 'hoola hoop', tolerable range, with 2 hands supportat pool wall, 1 x 10 each direction-R/L trunk rotation with hands resting on kickboard, tolerable range, cues forab bracing as needed to change directions, x 10 each direction-Bilateral heel and toe raises x15 each, with 2 hand support at pool wall,verbal cues and demonstration to perform while maintaining vertical trunkposition-Double leg squats with 2 hand support at pool wall with ab bracing on standing1 x 15, cues/education for tracking and alignmentWater Depth 5'0" (noodle under arms):Lower extremity exercises performed mindful of dynamic lumber stabilization,posture and forward visual gaze:R/L alternating hip Flexion/extension 'flutter kick' x30 seconds each with 2hand support at [facility]Bilateral hip abduction/adduction 'jumping flor legs' x30 seconds each with 2support at [facility].ateral bike (forward/backward) x30 seconds each with 2 hand support at [facility] hospitallDangling float x 5 minutes spread before, in between and after above deep waterexercisesSkilled Intervention:Proper selection of treatments for this session based on clinical presentation,deficits, and needsSelection of water depth as appropriate to patient's tolerance for exercisesVerbal and tactile cues with demonstration required for proper technique andsafety. Verbal cues required for core activation, postural control andforward visual gaze.Patient education: Expectation of fatigue/discomfort with exercise progressions and normalresponseGoal to gradually decrease water depth to tolerance in preparation fortransition to land based physical therapy and daily livingAdvised to rest as needed upon exiting pool prior to walking to locker room tore-acclimate to full weight bearing statusEducation and demonstration for posture and positioning.Weight bearing effects of immersion and proper hydration following aquaticsession.Patient educated on rationale/technique for exercises/activities performed thissession.[place]: Aquatics ([id number]): 1:1 time: 3 units: 38-52 minsTotal time: 40 minutesCorey MONSERRAT Singh ATC -- [facility] PROGRESSon 06-23-2017 Protein mass conc HNO ID: [id number] thor: Fred ([facility]) Dmitriye: (none)Author Type: Physical Therapy AssistantType: Progress NotesFiled: 06/23/2017 2:59 PMNote Text:Episode Visit Count: 2Therapist That Will Oversee The Plan Of Care: Nathen Gonzalez, CoreyStart of Care Date: 06/22/17Onset Date: 04/04/15REHABILITATION AND SPORTS THERAPYPHYSICAL THERAPY TREATMENT NOTEASSESSMENT:Decreased pain post session. Patient reports general body/LE fatigue andcompression sensation upon exiting pool, patient advised to rest asneeded at benches prior to walking to locker room, allowing body to becomere-acclimated to full weight bearing status.Education throughout regarding importance of performance of exercises inpool in a smooth and controlled fashion, within tolerable ranges withUpper Extremity support as needed to maintain postural control. Patientmade aware of patient only priority parking spots in parking lot. Patientadvised to perform exercises on land that have been prescribed with landtherapy thus far. Exercises performed in the pool are not to be performedon land, unless specified. The patient will continue to benefit from continued skilled physicaltherapy for progression of functional strength and core stability.PLAN FOR NEXT VISIT:Patient to follow up per PT plan. Continue to progress core stabilizationand functional strengthening exercises as tolerated.SUBJECTIVE:No pool access currently. Reports no change in status since evaluationyesterday. Increased low to mid back pain with prolonged standing,sitting. Using muscle relaxer at night to sleep.Pain Score: 6/10Pain Location: (Low to mid back)Description: (Constant ache, intermittent sharp especially about midback)Frequency: ContinuousPost Treatment Pain Score: 5/10OBJECTIVE MEASURES WITH LEVEL OF FUNCTION:Patient ambulates to/from locker room with decreased trunk rotation/armswing.Patient entered and exited the pool via stairs, reciprocally; SBA topass current channelPatient accompanied by clinician in water throughout entire session, SBAunless otherwise noted.Increased turbulence in pool today due to number of patrons nearby.Patient educated to perform exercises within controlled/tolerable ROM inlight of increased turbulence.TREATMENT:Aquati c Therapy:See note below. Upper/Lower extremity exercises performed mindful ofdynamic lumbar stabilization, posture and forward visual gaze:Water Depth 3'9"-Bilateral scapular retraction/depression with concurrent ab brace, andglute sets 10 x 5 seconds, 2 hand support at pool wall.-Walking forward, backward, side to side, side to side over rocks, andforward walking march x2 lengths each at pool wall for Upper Extremityassist as needed. Verbal cues for stride length, upright posture andforward visual gazeWater Depth 3'9" - 4'0" light-R/L hamstring stretch 2 x 20 seconds each, 1 hand support at pool wall-R/L gastroc stretch 2 x 20 seconds each, 2 hand support at pool wall-Clockwise/counterclock marti 'hoola hoop', tolerable range, with 2 handssupport at pool wall, 1 x 10 each direction-R/L trunk rotation with hands resting on kickboard, tolerable range, cuesfor ab bracing as needed to change directions, x 10 each direction-Bilateral heel and toe raises x15 each, with 2 hand support at poolwall, verbal cues and demonstration to perform while maintaining verticaltrunk position-Double leg squats with 2 hand support at pool wall with ab bracing onstanding 1 x 15, cues/education for tracking and alignmentWater Depth 5'0" (noodle under arms):Lower extremity exercises performed mindful of dynamic lumberstabilization, posture and forward visual gaze:R/L alternating hip Flexion/extension 'flutter kick' x30 seconds eachwith 2 hand support at pool wallBilateral hip abduction/adduction 'jumping flor legs' x30 seconds eachwith 2 support at pool wallBilateral bike (forward/backward) x30 seconds each with 2 hand support atpool wallDangling float x 5 minutes spread before, in between and after above deepwater exercisesSkilled Intervention:Proper selection of treatments for this session based on clinicalpresentation, deficits, and needsSelection of water depth as appropriate to patient's tolerance forexercisesVerbal and tactile cues with demonstration required for proper techniqueand safety. Verbal cues required for core activation, postural controland forward visual gaze.Patient education: Expectation of fatigue/discomfort with exercise progressions and normalresponseGoal to gradually decrease water depth to tolerance in preparation fortransition to land based physical therapy and daily livingAdvised to rest as needed upon exiting pool prior to walking to lockerroom to re-acclimate to full weight bearing statusEducation and demonstration for posture and positioning.Weight bearing effects of immersion and proper hydration following aquaticsession.Patient educated on rationale/technique for exercises/activities performedthis session.Billing:[place]: Aquatics ([id number]): 1:1 time: 3 units: 38-52 minsTotal time: 40 minutesFred Singh PTA [facility] CNTHERAPYon 06-22-2017 CNTHERAPY OT/PT/Speech Visit (PTMCRM) -------MARICARMEN PLASENCIA ([id number]) 1975 FDate Time Provider Department06/22/17 12:15 PM NATHEN GONZALEZ [facility]) [facility]counter [facility]: [id number] Time Provider Department [place]06/22/2017 12:15 PM [id number], JAY (PT) [facility] PT Cordelia [[id number]] Patient Education [91]Visit Diagnoses:Difficulty walking [R26.2] Hip stiffness, unspecified laterality [M25.659]Allergies As of Date: 06/22/2017(No Known Allergies)Date Reviewed: 06/13/2017Reviewed by: Claire Canales Ma - Fully AssessedPrescriptions as of 06/22/2017 Sig: CYCLOBENZAPRINE 10 MG TABLET Take 1 tablet by mouth daily * NAPROXEN 250 MG TABLET Take 2 tablets by mouth twice* TRIAMTERENE 37.5 MG-HYDROCHLO* take 1 tablet by mouth once d* GABAPENTIN 300 MG CAPSULE Take 1 capsule by mouth twice* OMEPRAZOLE 20 MG CAPSULE,DENIS* Take 1 capsule twice a day 1/* TIZANIDINE 2 MG CAPSULE Take 1 capsule by mouth three* MECLIZINE 25 MG TABLET Take 0.5-1 tablets by mouth e* ONDANSETRON HCL 4 MG TABLET Take 1 tablet by mouth every * SUCRALFATE 1 GRAM TABLET Take 1 tablet by mouth before* COMPOUNDED PRESCRIPTION KNEE HIGH COMPRESSION STOCKIN* CPAP Please do mask refitting for * CPAP Change Auto PAP to 5-13 cm of* COMPOUNDED PRESCRIPTION Compression knee-highs for LE*Progress Notes:Nathen Gonzalez, PT 06/22/2017 1:12 PM SignedEpisode Visit Count: 1Therapist That Will Oversee The Plan Of Care: Nathen Gonzalez, [facility]Start of Care Date: 06/22/17Onset Date: 04/04/15Patient Identified by Name and Date of : YesREHABILITATION AND SPORTS THERAPYPHYSICAL THERAPY EVALUATIONPLAN OF CARE:Assessment: Maricarmen Plasencia presents with the diagnosis ofCoccydynia [M53.3]Mechanical low back pain [M54.5]Herniated nucleus pulposus, L5-S1 [M51.27]Foraminal stenosis of lumbosacral region [M99.83]Gait disturbance [R26.9]Bilateral sacroiliitis (HCC) [M46.1]Chronic pain of left knee [M25.562, G89.29]Obesity without serious comorbidity, unspecified classification, unspecifiedobesity type [E66.9]. She presents with impairments of low back pain and range of motion andweakness and gait difficulty. She may benefit from skilled therapy services toimprove mobility gait strength and pain low back and lower extremity RIGHT LEFT.Low Back Pain Subgroup ClassificationLow Back Pain Subgroup Classification: Unweighting subgroup: recommended visits6. (order from doc for aquatics as well as several degenerative )Unweighting Subgroup Classification based on: high level of irritability toweight bearing;LE symptoms distal to the kneePrognosis: FairFair due to: clinical presentation;multiple co- morbidities;chronic nature ofimpairments;limited tolerance to activityGoals for Episode of Care: created on 06/22/17 through 08/06/17Decrease pain low back RIGHT LEFT lower extremityIncrease range of motion low back in flexion extension sb RIGHT LEFT rotationRIGHT LEFT with decrease painIncrease hip mobility RIGHT LEFT extension adduction internal rotation externalrotation with decrease low back painAmbulate with decrease assym and increase ease for increase duration on even anduneven surfaceUnilateral balance RIGHT LEFT x [address] RIGHT or LEFT lower extremityAgility walk all planes with decrease painLess dependence on meds to sleep and control painIndependence in home exercise program.G CODE REPORTINGBased on clinical assessment and the score on the Oswestry Assessment Tool, theG code and corresponding severity modifiers are documented below.Evaluation: 06/22/2017Current Status: Mobility: Walking and Moving Around: G8978 CL 60-79% impairedGoal Status: Mobility: Walking and Moving Around: G8979 CK 40-59% impairedPlanned Interventions, Frequency, and Duration: Current Frequency: 2x/weekDuration: 6 weeksTotal Number of Visits Planned: 12Patient to be see for Planned Treatment Interventions: Aquatic PTPLAN FOR NEXT VISIT: start aquatic PTPatient demonstrates good understanding of plan of care and treatment. Theabove goals and plan of care were discussed and agreed upon by patient/family.SUBJECTIVE: Maricarmen Plasencia is a 41 year old female seen today for pt has beendealing with severe pain and difficulty walking since 2016 and has been going topain management fsince 2016Functional Limitations: sitting;rising from a chair;walking;standing;walk ing inthe house;walking in the community;stair negotiation;bending;heavyex ertion;lifting;physical activities;recreationalacti vities;kneeling;squatting;w orking;sleeping;driving;monster aning;cooking;dressing;push ing;pulling;carryingPrior Level of Function: (limited since 2016)Patient Goals: try to get pain dec as much as possobleIntake Information: Prescription presentPrevious Treatment: NoneFalls Interview: (pt fell 1 x a while ago when it seemed that her L leg gave o)Aquatic Screen: YesPatient Weight: is 400 lbs or lessContra-indications to Aquatic Therapy: No noted contra-indicationsSpine HistorySymptoms Location at Onset: BackSymptoms Since Onset: WorseningPain is Worse Always:Bending;Rising;Sitti ng;Driving;Standing;Turning ;Walking;Prolonged positions;Onthe Move;AM;As the day progresses;PMPain is Worse Sometimes: LyingPain is Better Always: No positionPain is Better Sometimes: No positionSleeping Position: Side lying left;Side lying rightSleep Affected by Pain: (pain meds allow her to sleep)Previous Episodes: (since 2016)Red FlagsVertebral Fracture Red Flags: FemaleVertebral Fracture Clinical Reasoning: No identified risk factorsAbdominal Aortic Aneurysm Clinical Reasoning: No identified risk factors.Cancer Clinical Reasoning: No identified risk factors.Infection Clinical Reasoning: No identified risk factors.Cauda Equina Syndrome Clinical Reasoning: No identified risk factors.Red Flags - CervicalCancer Clinical Reasoning: No identified risk factors.Infection Clinical Reasoning: No identified risk factors.Pain Score: 8/10 (MRI confirmed diagnosis)Pain Location: Low Back/Lumbar Spine - Left;Low Back/Lumbar Spine - RightDescription: Aching;StabbingFrequency: ContinuousPost Treatment Pain Score: No ChangePain Location: Low Back/Lumbar Spine - Left;Low Back/Lumbar Spine - RightPost Treatment Pain Description: Aching;StabbingOBJECTIVE MEASURES WITH LEVEL OF FUNCTION: ambulate slow pace with increase pain low back RIGHT LEFT lower extremity withassym due to back pain and weaknessarom low back flexion 90 extension -5 sb RIGHT 15 LEFT 14 rotation RIGHT 45 [id number] pain with any extension No pain with flexionSignificant pain rotation RIGHT min pain rotation LEFTMin pain sb RIGHT LEFTBilateral squats hip flexion 120 knee flexion 115 min increase painUnilateral balance RIGHT and LEFT 3-4 secUnilateral squats not tested due to probable weakness RIGHT LEFT lower extremityand possibility of giveway weaknessStrength against PT resistanceRIGHT LEFT hip flexion 5/5 knee flexion 5/5 extension RIGHT 4+/5 LEFT 4+/5 ankledf pf 5/5No increase pain reportedHip mobility RIGHT LEFT extension -5 with increase low back painAdduction 8-9 internal rotation RIGHT 38 LEFT 35 external rotation RIGHT 40 [id number] RIGHT > LEFT low back pain with internal rotation and external rotation onRIGHT and LEFT lower extremityTender to palpation midline of spine L1 thru Z0Volpzdse 12 steps reciprocal with 1 hand rail with heavy dependence on upperextremityassym due to increase pain low back and LEFT RIGHT lower extremity by reportEducation:EducationLe arning Preferences: Demonstration;ExplanationBa rriers: NoneLearning/educational needs: Home exercise program;Plan of Care;SafetyEducation Provided: Yes, see treatment interventions for education providedEducation Provided To: PatientEducation Mode/Type: Demonstration;Explanation/D iscussionResponse to Education/Teach Back: Requires Review/Additional EducationTREATMENT:Sagittal Plane Frontal Plane Transverse PlaneX = neutral X = neutral X = neutralR = staggered right W = wide base E = external rotationL = staggered left N = narrow base I = internal [id number] letter = sagittal, 2nd letter = frontal, 3rd letter = transverseExamples: XXX = neutral, neutral, neutral RXE = right staggered, neutral width, toes outEvaluationTherapeutic Exercise:1: education on aquatic PT and its purpose in treating low back / spine issuesin unloading and using hyrolic and bouancy properties to dec pain and incability to gain flexibility and mobilioty with dec stress to low back2: education and cues on hip mobility and le mobility and hip le strength andhow this can imrove function of low back and attempt to dec pain3: education and instyruction in need for consistent use of aquatic environmentbeyond her 2 x a week in the aquatic PT environment4: education at length on mechanics of aquatic PT at [facility] and how tomanage that system with the least stress on her body and with the bestefficiencySkilled Intervention: Patient was educated in proper exercise technique andpurpose for exercises.Skilled judgment was provided in selection of appropriate interventions.Correct performance of therapeutic exercises was facilitated with verbal, visualand tactile cuing.Fransicoing:Sudeep: Evaluation - Low Complexity (28383)Therapeutic Exercise (81071): 1:1 time: 25 minutes (2 units: 23-37 mins)Total time: 45 minutesLuz Maria Pollock PT 06/22/2017 1:15 PM SignedAddended by: NATHEN GONZALEZ on: 06/22/2017 01:15 PM Modules accepted: Orders ----- [facility] PROGRESSon 06-22-2017 Protein mass conc HNO ID: [id number] thor: Nathen (Pt) Armin: (none)Author Type: Physical TherapistType: Progress NotesFiled: 06/22/2017 1:12 PMNote Text:Episode Visit Count: 1Therapist That Will Oversee The Plan Of Care: Nathen Gonzalez, CoreyStart of Care Date: 06/22/17Onset Date: 04/04/15Patient Identified by Name and Date of : YesREHABILITATION AND SPORTS THERAPYPHYSICAL THERAPY EVALUATIONPLAN OF CARE:Assessment: Maricarmen Plasencia presents with the diagnosis ofCoccydynia [M53.3]Mechanical low back pain [M54.5]Herniated nucleus pulposus, L5-S1 [M51.27]Foraminal stenosis of lumbosacral region [M99.83]Gait disturbance [R26.9]Bilateral sacroiliitis (HCC) [M46.1]Chronic pain of left knee [M25.562, G89.29]Obesity without serious comorbidity, unspecified classification,unspecified obesity type [E66.9]. She presents with impairments of low back pain and range of motion andweakness and gait difficulty. She may benefit from skilled therapyservices to improve mobility gait strength and pain low back and lowerextremity RIGHT LEFT .Low Back Pain Subgroup ClassificationLow Back Pain Subgroup Classification: Unweighting subgroup: recommendedvisits 6. (order from doc for aquatics as well as several degenerative )Unweighting Subgroup Classification based on: high level of irritabilityto weight bearing;LE symptoms distal to the kneePrognosis: FairFair due to: clinical presentation;multiple co- morbidities;chronic natureof impairments;limited tolerance to activityGoals for Episode of Care: created on 06/22/17 through 08/06/17Decrease pain low back RIGHT LEFT lower extremityIncrease range of motion low back in flexion extension sb RIGHT LEFTrotation RIGHT LEFT with decrease painIncrease hip mobility RIGHT LEFT extension adduction internal rotationexternal rotation with decrease low back painAmbulate with decrease assym and increase ease for increase duration oneven and uneven surfaceUnilateral balance RIGHT LEFT x [address] episodes RIGHT or LEFT lower extremityAgility walk all planes with decrease painLess dependence on meds to sleep and control painIndependence in home exercise program.G CODE REPORTINGBased on clinical assessment and the score on the Oswestry AssessmentTool, the G code and corresponding severity modifiers are documentedbelow.Evaluation: 06/22/2017Current Status: Mobility: Walking and Moving Around: G8978 CL 60-79%impairedGoal Status: Mobility: Walking and Moving Around: G8979 CK 40-59%impairedPlanned Interventions, Frequency, and Duration: Current Frequency:2x/weekDuration: 6 weeksTotal Number of Visits Planned: 12Patient to be see for Planned Treatment Interventions: Aquatic PTPLAN FOR NEXT VISIT: start aquatic PTPatient demonstrates good understanding of plan of care and treatment.The above goals and plan of care were discussed and agreed upon bypatient/family.SUBJECTIVE : Maricarmen Plasencia is a 41 year old female seen today for pthas been dealing with severe pain and difficulty walking since 2016 andhas been going to pain management fsince 2016Functional Limitations: sitting;rising from achair;walking;standing;[place] in the house;walking in the community;stairnegotiation; bending;heavy exertion;lifting;physicalac tivities;recreationalactivi ties;kneeling;squatting;wor [place];sleeping;driving;clean ing;cooking;dressing;pushin g;pulling;carryingPrior Level of Function: (limited since 2016)Patient Goals: try to get pain dec as much as possobleIntake Information: Prescription presentPrevious Treatment: NoneFalls Interview: (pt fell 1 x a while ago when it seemed that her L leggave o)Aquatic Screen: YesPatient Weight: is 400 lbs or lessContra-indications to Aquatic Therapy: No noted contra-indicationsSpine HistorySymptoms Location at Onset: BackSymptoms Since Onset: WorseningPain is Worse Always:Bending;Rising;Sitti ng;Driving;Standing;Turning ;Walking;Prolongedpositions ;On the Move;AM;As the day progresses;PMPain is Worse Sometimes: LyingPain is Better Always: No positionPain is Better Sometimes: No positionSleeping Position: Side lying left;Side lying rightSleep Affected by Pain: (pain meds allow her to sleep)Previous Episodes: (since 2016)Red FlagsVertebral Fracture Red Flags: FemaleVertebral Fracture Clinical Reasoning: No identified risk factorsAbdominal Aortic Aneurysm Clinical Reasoning: No identified risk factors.Cancer Clinical Reasoning: No identified risk factors.Infection Clinical Reasoning: No identified risk factors.Cauda Equina Syndrome Clinical Reasoning: No identified risk factors.Red Flags - CervicalCancer Clinical Reasoning: No identified risk factors.Infection Clinical Reasoning: No identified risk factors.Pain Score: 8/10 (MRI confirmed diagnosis)Pain Location: Low Back/Lumbar Spine - Left;Low Back/Lumbar Spine - RightDescription: Aching;StabbingFrequency: ContinuousPost Treatment Pain Score: No ChangePain Location: Low Back/Lumbar Spine - Left;Low Back/Lumbar Spine - RightPost Treatment Pain Description: Aching;StabbingOBJECTIVE MEASURES WITH LEVEL OF FUNCTION: ambulate slow pace with increase pain low back RIGHT LEFT lower extremitywith assym due to back pain and weaknessarom low back flexion 90 extension -5 sb RIGHT 15 LEFT 14 rotation RIGHT45 LEFT 48Severe pain with any extension No pain with flexionSignificant pain rotation RIGHT min pain rotation LEFTMin pain sb RIGHT LEFTBilateral squats hip flexion 120 knee flexion 115 min increase painUnilateral balance RIGHT and LEFT 3-4 secUnilateral squats not tested due to probable weakness RIGHT LEFT lowerextremity and possibility of giveway weaknessStrength against PT resistanceRIGHT LEFT hip flexion 5/5 knee flexion 5/5 extension RIGHT 4+/5 LEFT 4+/5ankle df pf 5/5No increase pain reportedHip mobility RIGHT LEFT extension -5 with increase low back painAdduction 8-9 internal rotation RIGHT 38 LEFT 35 external rotation RIGHT40 LEFT 41inc RIGHT > LEFT low back pain with internal rotation and externalrotation on RIGHT and LEFT lower extremityTender to palpation midline of spine L1 thru K2Trhyihjt 12 steps reciprocal with 1 hand rail with heavy dependence onupper extremityassym due to increase pain low back and LEFT RIGHT lower extremity byreportEducation:Education Learning Preferences: Demonstration;ExplanationBa rriers: NoneLearning/educational needs: Home exercise program;Plan of Care;SafetyEducation Provided: Yes, see treatment interventions for educationprovidedEducation Provided To: PatientEducation Mode/Type: Demonstration;Explanation/D iscussionResponse to Education/Teach Back: Requires Review/Additional EducationTREATMENT:Sagittal Plane Frontal Plane Transverse PlaneX = neutral X = neutral X = neutralR = staggered right W = wide base E = external rotationL = staggered left N = narrow base I = internal [id number] letter = sagittal, 2nd letter = frontal, 3rd letter = transverseExamples: XXX = neutral, neutral, neutral RXE = right staggered, neutral width, toes outEvaluationTherapeutic Exercise:1: education on aquatic PT and its purpose in treating low back / spineissues in unloading and using hyrolic and bouancy properties to dec painand inc ability to gain flexibility and mobilioty with dec stress to lowback2: education and cues on hip mobility and le mobility and hip le strengthand how this can imrove function of low back and attempt to dec pain3: education and instyruction in need for consistent use of aquaticenvironment beyond her 2 x a week in the aquatic PT environment4: education at length on mechanics of [facility] and how tomanage that system with the least stress on her body and with the bestefficiencySkilled Intervention: Patient was educated in proper exercise techniqueand purpose for exercises.Skilled judgment was provided in selection of appropriate interventions.Correct performance of therapeutic exercises was facilitated with verbal,visual and tactile cuing.Billing:Sudeep: Evaluation - Low Complexity (34838)Therapeutic Exercise (92886): 1:1 time: 25 minutes (2 units: 23-37 mins)Total time: 45 minutesNathen Gonzalez PT [facility] Vital Signs Date Time Vital Sign Value Performing Clinician Facility 02-06-2024 17:48-0500 Diastolic blood pressure 58 mm[Hg] Sergio Charles DO Work Phone: [facility] 02-06-2024 17:48-0500 Heart rate 84 /min Sergio Charles DO Work Phone: [facility] 02-06-2024 17:48-0500 SaO2% (BldA) [Mass fraction] 97 % Sergio Charles DO Work Phone: [facility] 02-06-2024 17:48-0500 Systolic blood pressure 128 mm[Hg] Sergio Charles DO Work Phone: [facility] 02-06-2024 16:12-0500 Body height 170.2 cm Sergio Charles DO Work Phone: [facility] 02-06-2024 16:12-0500 Body mass index (BMI) [Ratio] 40.72 kg/m2 Sergio Charles DO Work Phone: [facility] 02-06-2024 16:12-0500 Body temperature 97.81 [degF] Sergio Charles DO Work Phone: [facility] 02-06-2024 16:12-0500 Body weight 117.94 kg Sergio Charles DO Work Phone: [facility] 02-06-2024 16:12-0500 Respiratory rate 18 /min Sergio Charles DO Work Phone: [facility] 01-03-2024 21:24-0400 Body temperature 97.81 [degF] Cristopher Ferreira MD Work Phone: [employer] [facility] 01-03-2024 21:24-0400 Diastolic blood pressure 67 mm[Hg] Cristopher Ferreira MD Work Phone: [facility] 01-03-2024 21:24-0400 Heart rate 83 /min Cristopher Ferreira MD Work Phone: [facility] 01-03-2024 21:24-0400 Respiratory rate 18 /min Cristopher Ferreira MD Work Phone: [employer] [facility] 01-03-2024 21:24-0400 SaO2% (BldA) [Mass fraction] 99 % Cristopher Ferreira MD Work Phone: [employer] [facility] 01-03-2024 21:24-0400 Systolic blood pressure 143 mm[Hg] Cristopher Ferreira MD Work Phone: [employer] [facility] 01-03-2024 21:23-0400 Body height 170.2 cm Cristopher Ferreira MD Work Phone: [facility] 01-03-2024 21:23-0400 Body mass index (BMI) [Ratio] 36.81 kg/m2 Cristopher Ferreira MD Work Phone: [facility] 01-03-2024 21:23-0400 Body weight 106.59 kg Cristopher Ferreira MD Work Phone: [facility] 06-20-2023 19:10-0400 Body temperature 97 [degF] Artis Kevinlejose REGIONAL SALES CONSULTANT.[employer] ESTATE INTERN Work Phone: [facility] 06-20-2023 19:10-0400 Body weight 118.7 kg Artis Lvoing REGIONAL SALES CONSULTANT.REAL ESTATE INTERN Work Phone: [facility] 06-20-2023 19:10-0400 Diastolic blood pressure 76 mm[Hg] Artis Pendlejose REGIONAL SALES CONSULTANT.REAL ESTATE INTERN Work Phone: [facility] 06-20-2023 19:10-0400 Heart rate 76 /min Artis Loving REGIONAL SALES CONSULTANT.REAL ESTATE INTERN Work Phone: [facility] 06-20-2023 19:10-0400 Respiratory rate 16 /min Artis Loving REGIONAL SALES CONSULTANT.REAL ESTATE INTERN Work Phone: [facility] 06-20-2023 19:10-0400 SaO2% (BldA) [Mass fraction] 99 % Artis Loving REGIONAL SALES CONSULTANT.REAL ESTATE INTERN Work Phone: [facility] 06-20-2023 19:10-0400 Systolic blood pressure 128 mm[Hg] Artis Brownlejose REGIONAL SALES CONSULTANT.REAL ESTATE INTERN Work Phone: [facility] 05-23-2023 22:42-0500 Body temperature 97.9 [degF] [facility] 05-23-2023 22:42-0500 Diastolic blood pressure 62 mm[Hg] [facility] 05-23-2023 22:42-0500 Heart rate 80 /min [facility] 05-23-2023 22:42-0500 Respiratory rate 12 /min [facility] 05-23-2023 22:42-0500 SaO2% (BldA) [Mass fraction] 99 % [facility] 05-23-2023 22:42-0500 Systolic blood pressure 118 mm[Hg] [facility] 05-23-2023 18:30-0500 Body height 170.18 cm [facility] 05-23-2023 18:30-0500 Body mass index (BMI) [Ratio] 39.8 kg/m2 [facility] 05-23-2023 18:30-0500 Body weight 115.25 kg [facility] 02-17-2023 16:47-0500 Heart rate 58 /min [facility] 02-17-2023 16:47-0500 Respiratory rate 14 /min [facility] 02-17-2023 14:01-0500 Body height 172.72 cm [facility] 02-17-2023 14:01-0500 Body mass index (BMI) [Ratio] 38.9 kg/m2 [facility] 02-17-2023 14:01-0500 Body temperature 98.4 [degF] [facility] 02-17-2023 14:01-0500 Body weight 116.11 kg [facility] 02-17-2023 14:01-0500 Diastolic blood pressure 60 mm[Hg] [facility] 02-17-2023 14:01-0500 SaO2% (BldA) [Mass fraction] 100 % [facility] 02-17-2023 14:01-0500 Systolic blood pressure 147 mm[Hg] [facility] 10-29-2022 13:35-0400 Body height 168.5 cm Barbara Charles MD Work Phone: [facility] 10-29-2022 13:35-0400 Body mass index (BMI) [Ratio] 41.3 kg/m2 Barbara Charles MD Work Phone: [facility] 10-29-2022 13:35-0400 Body weight 117.3 kg Barbara Charles MD Work Phone: [facility] 10-29-2022 13:35-0400 Diastolic blood pressure 86 mm[Hg] Barbara Charles MD Work Phone: [facility] 10-29-2022 13:35-0400 Heart rate 70 /min Barbara Charles MD Work Phone: [facility] 10-29-2022 13:35-0400 SaO2% (BldA) [Mass fraction] 98 % Barbara Charles MD Work Phone: [facility] 10-29-2022 13:35-0400 Systolic blood pressure 134 mm[Hg] Barbara Charles MD Work Phone: [facility] 05-30-2021 18:42-0500 Body height 170.2 cm [facility] [facility] 05-30-2021 18:41-0500 Body temperature 98.29 [degF] [facility] [employer] [facility] 05-30-2021 18:41-0500 Diastolic blood pressure 70 mm[Hg] [facility] 05-30-2021 18:41-0500 Heart rate 85 /min [facility] [employer] [facility] 05-30-2021 18:41-0500 Respiratory rate 18 /min [facility] 05-30-2021 18:41-0500 SaO2% (BldA) [Mass fraction] 100 % [facility] 05-30-2021 18:41-0500 Systolic blood pressure 134 mm[Hg] [facility] 09-26-2020 02:13-0400 Body height 170.1 cm Barbara Charles Other Phone: [facility] 09-26-2020 02:13-0400 Body temperature 97.88 [degF] Barbara Charles Other Phone: [facility] 09-26-2020 02:13-0400 Body weight 111 kg Barbara Charles Other Phone: [facility] 09-26-2020 02:13-0400 Diastolic blood pressure 74 mm[Hg] Barbara Charles Other Phone: [facility] 09-26-2020 02:13-0400 Heart rate 78 /min Barbara Charles Other Phone: [facility] 09-26-2020 02:13-0400 Respiratory rate 16 /min Barbara Charles Other Phone: [facility] 09-26-2020 02:13-0400 SaO2% (BldA) [Mass fraction] 98 % Barbara Charles Other Phone: [facility] 09-26-2020 02:13-0400 Systolic blood pressure 127 mm[Hg] Barbara Charles Other Phone: [facility] Encounters Encounter Date Encounter Type Care Provider Facility Start: 02-06-2024 End: 02-06-2024 Emergency department patient visit Sergio Charles DO Work Phone: [facility] Comment on above: Sprain of left ankle , initial encounter (Primary Dx) Start: 01-03-2024 End: 01-03-2024 Emergency department patient visit [facility] Start: 06-20-2023 End: 06-20-2023 ambulatory [facility] Facility:[facility] Start: 06-20-2023 End: 06-20-2023 Office outpatient visit 15 minutes Artis Loving APRN.REAL ESTATE INTERN Work Phone: [facility] Comment on above: Eustachian tube dysf unction, bilateral (Primary Dx) Start: 05-23-2023 End: 05-24-2023 Emergency department patient visit Barbara Charles Facility:[facility] Start: 05-23-2023 End: 05-23-2023 Emergency department patient visit [facility] Work Phone: Start: 03-29-2023 End: 03-29-2023 Emergency department patient visit BARBARA MAYERSPENNYZAK [facility] Start: 02-17-2023 End: 02-17-2023 Emergency department patient visit [facility] Work Phone: Start: 10-29-2022 End: 10-30-2022 ambulatory BARBARA CHARLES [facility] Start: 10-29-2022 End: 10-29-2022 Office outpatient new 30 minutes Barbara Charles MD Work Phone: [facility] Comment on above: Rash (Primary Dx); Pruritus; Allergic rhinitis, unspecified seasonality, unspecified trigger; Gastroesophageal reflux disease, unspecified whether esophagitis present; Peripheral edema; Chronic pain of left knee; Visit for screening mammogram Start: 09-08-2022 ambulatory Ramiro gilbert MD Work Phone: [facility] Start: 09-30-2021 ambulatory Ramiro gilbert MD Work Phone: [facility] Start: 07-28-2021 Refill Ladan Merlos APRN, .CNP Work Phone: [facility] [place] Comment on above: Refill Request Start: 07-21-2021 End: 07-21-2021 Emergency department patient visit PEDRO LUIS CAROLE [facility] Start: 05-30-2021 End: 05-30-2021 Emergency department patient visit [facility] Start: 09-26-2020 End: 09-26-2020 Emergency department patient visit Stella Mclaughlin [facility] Emergency Start: 01-04-2019 Patient encounter procedure Avirup Josue ZE-Uyugdgayos-Crgyokk [address] Work Phone: Start: 12-20-2018 Patient encounter procedure Avirup Josue IK-Elknsmqpwx-Ziuxdms [address] Work Phone: Start: 11-27-2018 Patient encounter procedure Avirup Josue YB-Cnuvitfigl-Pgzhujl [address] Work Phone: Start: 11-21-2018 Patient encounter procedure Avirup Josue JH-Metdcpvbpr-Lrzzfzc [address] Work Phone: Start: 10-24-2018 Patient encounter procedure Avirup Joseu YF-Oeasuyewvj-Pmvtayf [address] Work Phone: Start: 03-03-2018 Patient encounter procedure RAMIRO Pena [facility] Start: 08-18-2017 End: 08-18-2017 Patient encounter procedure NATHEN (PT) [facility] Start: 08-08-2017 [facility] Start: 08-04-2017 End: 08-04-2017 Patient encounter procedure [facility] Start: 08-02-2017 End: 08-02-2017 Patient encounter procedure [facility] Start: 07-29-2017 End: 07-29-2017 Patient encounter procedure [facility] Start: 07-28-2017 End: 07-28-2017 Patient encounter procedure [facility] Start: 07-26-2017 End: 07-26-2017 Patient encounter procedure [facility] Start: 07-26-2017 End: 07-26-2017 Patient encounter procedure NATHEN (PT) [facility] Start: 07-21-2017 End: 07-21-2017 Patient encounter procedure [facility] Start: 2017 End: 2017 Patient encounter procedure [facility] Start: 07-07-2017 End: 07-07-2017 Patient encounter procedure [facility] Start: 07-05-2017 End: 07-05-2017 Patient encounter procedure [facility] Start: 06-23-2017 End: 06-23-2017 Patient encounter procedure [facility] Start: 06-22-2017 End: 06-22-2017 Patient encounter procedure NATHEN (PT) [facility] Procedures Date Procedure Procedure Detail Performing Clinician Start: 02-06-2024 Radex ankle complete minimum 3 views Sergio Charles DO Work Phone: Start: 01-03-2024 Infectious agent dna/rna influenza 1st 2 types Cristopher Ferreira MD Work Phone: Start: 05-23-2023 Plain chest X-ray Start: 02-17-2023 Plain chest X-ray Start: 02-17-2023 SARS-CoV-2 & FLU Antigen (Rapid) Start: 02-17-2023 Viral antigen assay Start: 10-29-2022 CBC W Auto Differential panel - Blood BARBARA CHARLES Start: 10-29-2022 Comprehensive metabolic 2000 panel - Serum or Plasma BARBARA CHARLES Start: 10-29-2022 Cyanocobalamin vitamin b-12 BARBARA CHARLES Start: 10-29-2022 Lipid panel BARBARA CHARLES Start: 10-29-2022 THYROXINE, FREE BARBARA CHARLES Start: 10-29-2022 TSH WITH REFLEX TO FREE T4 IF ABNORMAL BARBARA CHARLES Start: 10-29-2022 Lipid 1996 panel - Serum or Plasma Artis Loving APRN.[employer] ESTATE INTERN Work Phone: Start: 05-30-2021 End: 05-30-2021 Ct cervical spine w/o contrast material Joelle Cary APRN-REAL ESTATE INTERN Work Phone: Start: 05-30-2021 Ct head/brain w/o contrast material Joelle Cary APRN-REAL ESTATE INTERN Work Phone: Start: 05-30-2021 Radex forearm 2 views Joelle Cary APRN-REAL ESTATE INTERN Work Phone: Start: 06-12-2019 Adult depression screening assessment Ladan Older REGIONAL SALES CONSULTANT.[employer]STATE INTERN Work Phone: Start: 03-03-2018 Mammography Ladan Older REGIONAL SALES CONSULTANT.RE[employer]STATE INTERN Work Phone: Start: 05-16-2015 Colonoscopy Ladan Older REGIONAL SALES CONSULTANT.[employer]STATE INTERN Work Phone: History of cholecystectomy Status post laparoscopic cholecystectomy History of cholecystectomy Status post laparoscopic cholecystectomy Plan of Treatment Date Care Activity Detail Author Start: 01-24-2029 DTaP/Tdap/Td Vaccine s (3 - Td or Tdap) DTaP/Tdap/Td Vaccines (3 - Td or Tdap) [facility] Start: 01-24-2029 Tetanus vaccination [facility] Start: 01-24-2029 Urine microalbumin profile DTaP,Tdap,Td Vaccine (3 - Td or Tdap) [facility] Start: 10-30-2027 Lipid panel [facility] Start: 10-29-2025 Diabetes Screening Diabetes Screenin g [facility] Start: 05-16-2025 Screening for malign ant neoplasm of colon [facility] Start: 10-21-2024 LIPID SCREEN LIPID SCREEN [facility] Start: 03-11-2024 Zoster Vaccines (2 o f 2) Zoster Vaccines (2 of 2) [facility] Start: 12-04-2023 COVID-19 VACCINE ( season) COVID-19 VACCINE () [facility] Start: 12-04-2023 COVID-19 Vaccine ( season) COVID-19 Vaccine () [facility] Start: 12-04-2023 Influenza vaccination INFLUENZA VACC INE (#1) [facility] Start: 09-05-2023 Urine microalbumin profile DTAP,TDAP,TD (2 - Td or Tdap) [facility] Start: 07-16-2023 Zoster vaccine hzv l yeyo for subcutaneous use ZOSTER (SHINGLES) VACCINE (1 of 2) [facility] Start: 07-16-2023 Zoster Vaccines (1 o f 2) Zoster Vaccines (1 of 2) [facility] Start: 05-23-2023 End: 05-23-2023 [facility] Start: 05-23-2023 [facility] Start: 04-04-2023 Depression Assessment Depression Ass essment [facility] Start: 02-17-2023 [facility] Start: 12-03-2022 Covid-19 Vaccine () Covid-19 Vaccine () [facility] Start: 12-03-2022 Influenza vaccination [facility] Start: 11-19-2022 End: 11-19-2022 Patient encounter procedure 11/19/2022 8:40 AM EDT Office Visit [facility] [address] [place] [id number] Barbara Charles MD [address] [facility] [place] [address] [facility] Start: 10-29-2022 End: 10-29-2022 ambulatory 10/29/2022 2:20 PM EDT Lab [facility] [address] [place] [address] Rash; Pruritus; Allergic rhinitis, unspecified seasonality, unspecified trigger; Gastroesophageal reflux disease, unspecified whether esophagitis present; Peripheral edema; Chronic pain of left knee [facility] Comment on above: Rash; Pruritus; Allergic rhinitis, unspecified seasonality, unspecified trigger; Gastroesophageal reflux disease, unspecified whether esophagitis present; Peripheral edema; Chronic pain of left knee Start: 10-29-2022 End: 10-30-2023 CBC W Auto Differential panel - Blood [facility] Work Phone: Comment on above: Expected: 10/29/2022 (Approximate), Expires: 10/30/2023 Start: 10-29-2022 End: 10-30-2023 Cobalamin (Vitamin B12) [Mass/volume] in Serum or Plasma [facility] Work Phone: Comment on above: Expected: 10/29/2022 (Approximate), Expires: 10/30/2023 Start: 10-29-2022 End: 10-30-2023 Comprehensive metabolic 2000 panel - Serum or Plasma [facility] Work Phone: Comment on above: Expected: 10/29/2022 (Approximate), Expires: 10/30/2023 Start: 10-29-2022 End: 12-31-2023 DBT Breast - bilateral [facility] Work Phone: Comment on above: Expected: 10/29/2022 , Expires: 12/31/2023 Start: 10-29-2022 End: 10-30-2023 Lipid 1996 panel - Serum or Plasma [facility] Work Phone: Comment on above: Expected: 10/29/2022 (Approximate), Expires: 10/30/2023 Start: 10-29-2022 End: 10-30-2023 TSH with reflex to Free T4 if abnormal [facility] Work Phone: Comment on above: Expected: 10/29/2022 (Approximate), Expires: 10/30/2023 Start: 10-21-2022 DIABETES SCREEN DIABETES SCREEN [facility] Start: 04-04-2022 DEPRESSION ASSESSMENT DEPRESSION ASS ESSMENT [facility] Start: 10-24-2021 HEPATITIS B (3 of 3 - 19+ 3-dose series) HEPATITIS B (3 of 3 - 19+ 3-dose series) [facility] Start: 05-26-2021 COVID-19 VACCINE (4 - Booster for Pfizer series) COVID-19 VACCINE (4 - Booster for Pfizer series) [facility] Start: 06-11-2020 Adult depression screening assessment DEPRESSION SCREENING [facility] Start: 03-03-2019 Mammography MAMMOGRAM [facility] Start: 03-03-2019 Screening for malign ant neoplasm of breast Mammogram Screening [facility] Start: 09-04-2018 HPV TESTING HPV TESTING [facility] Start: 09-04-2018 PAP TESTING PAP TESTING [facility] Start: 09-04-2018 Screening for malign ant neoplasm of cervix [facility] Start: 2018 COLOGUARD (FIT-DNA) COLOGUARD (FIT-D NA) [facility] Start: 2018 Colonoscopy [facility] Start: 2018 COLORECTAL CANCER SCREENING COLORECTAL CANCER SCREENING [facility] Start: [address] COLONOGRAPHY [facility] Start: 2018 FECAL OCCULT BLOOD FECAL OCCULT BLOO D [facility] Start: 2018 Screening for malign ant neoplasm of colon [facility] Start: 2018 SIGMOIDOSCOPY SIGMOIDOSCOPY [facility] Start: 2013 Fasting lipid profile LIPID SCREENIN G [facility] Start: 2013 Lipid panel LIPID SCREENING [facility] Start: 2013 Screening for malign ant neoplasm of breast [facility] Start: 2013 Screening mammography MAMMOGRA M SCREENING DISCUSSION [facility] Start: 1994 Screening for malign ant neoplasm of cervix [facility] Start: 1992 Third diphtheria, tetanus and acellular pertussis (DTaP) vaccination TDAP (ADULT) [facility] Start: 07-16-1991 Diabetes mellitus screening Diabetes Screening [facility] Start: 07-16-1991 Hepatitis C screening Hepatitis C Sc reening [facility] Start: 07-16-1991 Tetanus vaccination TETANUS [facility] Start: 1988 HIV screening HIV SCREENING DISCUSSI ON [facility] Start: 1978 COVID-19 VACCINE (1) COVID-19 VACCIN E (1) [facility] Start: 1974 MMR Vaccines (1 of 1 - Standard series) MMR Vaccines (1 of 1 - Standard series) [facility] Start: 1973 Hepatitis C antibody , confirmatory test HEPATITIS C VIRUS SCREENING [facility] Start: 1973 Hepatitis C screening HEPATITI S C VIRUS SCREENING [facility] Start: 1973 HIV screening HIV Screening [facility] Start: 1973 Lipid panel Lipid Panel [facility] Start: 1973 Potassium [Moles/volume] in Serum or Plasma POTASSIUM [facility] Start: 1973 Screening for malign ant neoplasm of colon [facility] Start: 1973 Yearly Adult Physical Yearly Adult P hysical [facility] End: 10-30-2022 BIANCA SCREENING W TATE BIANCA SCREENING W TATE Radiology Routine Encounter for screening mammogram for breast cancer 1 Occurrences starting 09/30/2021 until 10/30/[address] [facility] Work Phone: Comment on above: 1 Occurrences starti ng 09/30/2021 until 10/30/2022 End: 10-08-2023 BIANCA SCREENING W TATE BIANCA SCREENING W TATE Radiology Routine Encounter for screening mammogram for breast cancer 1 Occurrences starting 09/08/2022 until 10/08/[address] [facility] Work Phone: Comment on above: 1 Occurrences starti ng 09/08/2022 until 10/08/2023 Patient Education [facility] Work Phone: Patient referral [facility] Work Phone: End: 02-06-2024 Splint Application Splint Application Procedures Routine Once for 1 Occurrences starting 02/06/2024 until 02/06/2024 [facility] Work Phone: Comment on above: Once for 1 Occurrenc es starting 02/06/2024 until 02/06/2024 Immunizations Immunization Date Immunization Notes Care Provider Abran deshpande 05-27-2021 hepatitis B vaccine, adult dosage Ladan Older REGIONAL SALES CONSULTANT.RE[employer] ESTATE INTERN Work Phone: [facility] Work Phone: 05-27-2021 hepatitis B vaccine, unspecified formulation Ramiro Preciado MD Work Phone: [facility] 03-31-2021 COVID-19 vaccine, ag e 12+ yr (PFIZER-BIONTECH - PURPLE TOP) Ladan Older REGIONAL SALES CONSULTANT.REAL ESTATE INTERN Work Phone: [facility] Work Phone: 02-01-2021 influenza, seasonal, injectable Ladan Older REGIONAL SALES CONSULTANT.REAL ESTATE INTERN Work Phone: [facility] Work Phone: 02-01-2021 Seasonal, quadrivalent, recombinant, injectable influenza vaccine, preservative free Barbara Charles MD Work Phone: [facility] Work Phone: 02-01-2021 influenza virus vaccine, unspecified formulation Barbara Charles MD Work Phone: [facility] Work Phone: 09-16-2020 COVID-19 vaccine, ag e 12+ yr (PFIZER-BIONTECH - PURPLE TOP) Ladan Older REGIONAL SALES CONSULTANT.REAL ESTATE INTERN Work Phone: [facility] Work Phone: 09-13-2020 Covid (Pfizer) [facility] 08-26-2020 COVID-19 vaccine, ag e 12+ yr (PFIZER-BIONTECH - PURPLE TOP) Ladan Older REGIONAL SALES CONSULTANT.REAL ESTATE INTERN Work Phone: [facility] Work Phone: 08-16-2020 Covid (Pfizer) [facility] 06-17-2020 hepatitis B vaccine, adult dosage Ladan Older REGIONAL SALES CONSULTANT.REAL ESTATE INTERN Work Phone: [facility] Work Phone: 05-19-2020 hepatitis B vaccine, adult dosage Barbara Charles MD Work Phone: [facility] Work Phone: 12-06-2019 Seasonal, quadrivalent, recombinant, injectable influenza vaccine, preservative free Barbara Charles MD Work Phone: [facility] Work Phone: 12-04-2019 Influenza virus vaccine [facility] 01-24-2019 influenza, injectabl e, quadrivalent, preservative free Barbara Charles MD Work Phone: [facility] Work Phone: 01-24-2019 tetanus toxoid, reduced diphtheria toxoid, and acellular pertussis vaccine, adsorbed Barbara Charles MD Work Phone: [facility] Work Phone: 01-08-2015 influenza, injectabl e, quadrivalent, contains preservative Ladan Older REGIONAL SALES CONSULTANT.REAL ESTATE INTERN Work Phone: [facility] 01-08-2015 influenza, seasonal, injectable Barbara Charles MD Work Phone: [facility] Work Phone: 12-03-2014 influenza, injectabl e, quadrivalent, preservative free [facility] 09-04-2013 tetanus toxoid, reduced diphtheria toxoid, and acellular pertussis vaccine, adsorbed Ladan Older REGIONAL SALES CONSULTANT.RE[employer] ESTATE INTERN Work Phone: [facility] Payers Date Payer Category Payer [employer] [id number] 2023 Self-pay [id number] 2022 Unknown 2022 Unknown [id number] 2022 Medicaid [facility] MEDICAID [id number] 2022-Present [phone] [address] [place] [address] Medicaid [id number] 2018 Unknown [id number] 2018 Medicaid [id number] 2010 Unknown [facility] [id number] 1973 Unknown [id number] 1973 Unknown [id number] 1973 Unknown [id number] 1973 Unknown [id number] 1973 Unknown [id number] Unknown [id number] Unknown [id number] Social History Date Type Detail Facility Assertion Unknown if ever smoked [facility] [address] Work Phone: Start: 02-17-2023 End: 05-23-2023 Tobacco smoking consumption unknown [facility] Start: 05-30-2021 End: 10-29-2022 Tobacco smoking status NHIS Never smoked tobacco [facility] Start: 05-30-2021 End: 10-29-2022 Tobacco use and exposure Smokeless tobacco non-user [facility] Start: 05-30-2021 End: 01-03-2024 Alcohol intake Lifetime non-drinker (finding) [facility] Start: 10-22-2019 End: 05-30-2021 History SDOH Alcohol Frequency 1 [facility] Start: 1975 Sex Assigned At Not on file [facility] Start: 05-20-2021 End: 02-06-2024 Exposure to SARS-CoV-2 (event) Not sure [facility] Start: 03-20-2020 End: 06-20-2023 Alcohol intake Current non-drinker of alcohol (finding) [facility] Start: 06-12-2019 End: 10-22-2019 History SDOH Alcohol Frequency 3 [facility] Start: 06-12-2019 End: 10-22-2019 History SDOH Alcohol Binge 2 [facility] Start: 06-12-2019 History SDOH Social Connections Living 6 [facility] Start: 10-22-2019 History SDOH Physical Activity DPW 5 [facility] Start: 06-12-2019 History SDOH Physical Activity MPS 0 [facility] Start: 10-22-2019 Education 16 [facility] Start: 1975 Sex Assigned At Female [facility] Work Phone: Start: 10-29-2022 End: 02-06-2024 Alcohol intake Ex-drinker (finding) [facility] Work Phone: Start: 10-22-2019 End: 10-29-2022 Gender identity Not on file [facility] Start: 01-28-2020 None [facility] Start: 01-28-2020 With Family [facility] Start: 01-29-2020 Non-smoker [facility] Start: 10-22-2019 End: 10-29-2022 History of Social function [facility] Frequency of Communication with Friends and Family Not on file [facility] Work Phone: How often to you hav e a drink containing alcohol? 2-4 times a month [facility] Work Phone: How many standard dr inks containing alcohol do you have on a typical day? 1 or 2 [facility] Work Phone: How often do you hav e 6 or more drinks on 1 occasion? Less than monthly [facility] Work Phone: Do you feel stress - tense, restless, nervous, or anxious, or unable to sleep at night because your mind is troubled all the time - these days [OSQ] Not at all [facility] (I/We) worried wheromain er (my/our) food would run out before (I/we) got money to buy more. Never true [facility] Work Phone: In the past 12 month s, was there a time when you were not able to pay the mortgage or rent on time? No [facility] Start: 10-22-2019 Gender identity Identifies as female gender (finding) [facility] Work Phone: Medical Equipment Procedure Code Equipment Code Equipment Original Text Equipment Identifier Dates Total cholecystectomy with exploration of common bile duct Hem-O-Lco FDA Start: 12-12-2020 Total cholecystectomy with exploration of common bile duct Hem-O-Lock FDA Start: 12-12-2020 Total cholecystectomy with exploration of common bile duct SURGICEL, POWDER 3GR FDA Start: 12-12-2020 Total cholecystectomy with exploration of common bile duct Hem-O-Lco FDA Start: 12-12-2020 Total cholecystectomy with exploration of common bile duct Hem-O-Lock FDA Start: 12-12-2020 Total cholecystectomy with exploration of common bile duct SURGICEL, POWDER 3GR FDA Start: 12-12-2020 Functional Status Date Assessment Result Facility NEGATED: Highlighted row Functional performance Functional status health issues are not documented Disease [facility] [address] Work Phone: Mental Status Date Assessment Result Facility 05-23-2023 Cognitive function Voice/Name [facility] Work Phone: 02-17-2023 Cognitive function Level Of Cons ciousness Awake;Alert;Appropriate [facility] Work Phone: NEGATED: Highlighted row Cognitive function [Interpretation] Cognitive status health issues are not documented Disease [facility] [address] Work Phone: Clinical Notes 12-18-2004 to 02-06-2024 Sergio Charles, - 02/06/2024 4:10 PM Eloise Charles, - 02/06/2024 4:10 PM Jessika Delong RN - 01/03/2024 10:16 PM EDTSmell Delong RN - 01/03/2024 10:16 PM EDT Note Date & Type Note Facility 02-06-2024 Emergency department Note HPI Chief Complaint Patient presents with Ankle Pain Fall Pt tripped outside and fell onto her left knee and ankle. Complains of pain mainly in the left ankle but does state some pain in left knee and hip. Denies hitting head or LOC. Denies blood thinners. Pt thinks she is UTD on tetanus Patient presents the emergency department secondary to a left ankle injury. The patient states that she stepped down wrong coming out of 1 step out of her shed. Sustained an inversion type injury. This occurred about 2 hours prior to arrival and the patient has been ambulatory since this occurred but it is painful to do so. Took nothing [id number] to help with her pain. No other injuries reported. History provided by: Patient community services coordinator used: No Patient History Past Medical History: Diagnosis Date Irregular heartbeat Vertigo Past Surgical History: Procedure Laterality Date CHOLECYSTECTOMY 09/2021 SINUS SURGERY Bilateral 1999 Family History Problem Relation Name Age of Onset Hypertension Mother Meniere's disease Mother Diabetes Father Social History Tobacco Use Smoking status: Never Smokeless tobacco: Never Vaping Use Vaping status: Never Used Substance Use Topics Alcohol use: Not Currently Drug use: Never Physical Exam ED Triage Vitals [02/06/24 1612] Temperature Heart Rate Respirations BP 36.6 C (97.8 F) 81 18 133/53 Pulse Ox Temp Source Heart Rate Source Patient Position 100 % Temporal -- -- BP Location FiO2 (%) -- -- Physical Exam Vitals and nursing note reviewed. Constitutional: General: She is not in acute distress. Appearance: Normal appearance. She is normal weight. She is not ill-appearing, toxic-appearing or diaphoretic. HENT: Head: Normocephalic and atraumatic. Nose: Nose normal. No rhinorrhea. Neck: Comments: Trachea is midline Cardiovascular: Rate and Rhythm: Normal rate and regular rhythm. Pulses: Normal pulses. Musculoskeletal: General: Swelling, tenderness and signs of injury present. No deformity. Normal range of motion. Cervical back: Normal range of motion. Comments: Soft tissue edema with point tenderness over the lateral malleolus of the left ankle. No other obvious deformity identified. Patient can move all digits of the affected extremity and she can dorsiflex and plantarflex the foot although it does elicit pain Skin: General: Skin is warm and dry. Findings: No rash. Neurological: General: No focal deficit present. Mental Status: She is alert and oriented to person, place, and time. Mental status is at baseline. Sensory: No sensory deficit. Psychiatric: Mood and Affect: Mood normal. Behavior: Behavior normal. Thought Content: Thought content normal. Judgment: Judgment normal. ED Course & MDM Diagnoses as of 02/06/24 172 Sprain of left ankle, initial encounter No data recorded [place] Coma Scale Score: 15 (02/06/24 1613 : Clemencia Bardales RN) Medical Decision Making X-ray shows no evidence of fracture. Differential considerations would include sprain versus strain. Patient will be placed in a gel splint by the nursing staff and provided with crutches to assist with ambulation. Prescription for NSAIDs and instructed ice the affected area. Provided with a work note and referred to orthopedics on-call. Weightbearing as tolerated and return at anytime if worse. Procedure Procedures Sergio Charles DO 02/06/241722 documented in this encounter [facility] Work Phone: 02-06-2024 Physician Emergency department Note HPI Chief Complaint Patient presents with Ankle Pain Fall Pt tripped outside and fell onto her left knee and ankle. Complains of pain mainly in the left ankle but does state some pain in left knee and hip. Denies hitting head or LOC. Denies blood thinners. Pt thinks she is UTD on tetanus Patient presents the emergency department secondary to a left ankle injury. The patient states that she stepped down wrong coming out of 1 step out of her shed. Sustained an inversion type injury. This occurred about 2 hours prior to arrival and the patient has been ambulatory since this occurred but it is painful to do so. Took nothing [id number] to help with her pain. No other injuries reported. History provided by: Patient community services coordinator used: No Patient History Past Medical History: Diagnosis Date Irregular heartbeat Vertigo Past Surgical History: Procedure Laterality Date CHOLECYSTECTOMY 09/2021 SINUS SURGERY Bilateral 1999 Family History Problem Relation Name Age of Onset Hypertension Mother Meniere's disease Mother Diabetes Father Social History Tobacco Use Smoking status: Never Smokeless tobacco: Never Vaping Use Vaping status: Never Used Substance Use Topics Alcohol use: Not Currently Drug use: Never Physical Exam ED Triage Vitals [02/06/24 1612] Temperature Heart Rate Respirations BP 36.6 C (97.8 F) 81 18 133/53 Pulse Ox Temp Source Heart Rate Source Patient Position 100 % Temporal -- -- BP Location FiO2 (%) -- -- Physical Exam Vitals and nursing note reviewed. Constitutional: General: She is not in acute distress. Appearance: Normal appearance. She is normal weight. She is not ill-appearing, toxic-appearing or diaphoretic. HENT: Head: Normocephalic and atraumatic. Nose: Nose normal. No rhinorrhea. Neck: Comments: Trachea is midline Cardiovascular: Rate and Rhythm: Normal rate and regular rhythm. Pulses: Normal pulses. Musculoskeletal: General: Swelling, tenderness and signs of injury present. No deformity. Normal range of motion. Cervical back: Normal range of motion. Comments: Soft tissue edema with point tenderness over the lateral malleolus of the left ankle. No other obvious deformity identified. Patient can move all digits of the affected extremity and she can dorsiflex and plantarflex the foot although it does elicit pain Skin: General: Skin is warm and dry. Findings: No rash. Neurological: General: No focal deficit present. Mental Status: She is alert and oriented to person, place, and time. Mental status is at baseline. Sensory: No sensory deficit. Psychiatric: Mood and Affect: Mood normal. Behavior: Behavior normal. Thought Content: Thought content normal. Judgment: Judgment normal. ED Course & MDM Diagnoses as of 02/06/24 1722 Sprain of left ankle, initial encounter No data recorded [place] Coma Scale Score: 15 (02/06/24 1613 : Clemencia Bardales RN) Medical Decision Making X-ray shows no evidence of fracture. Differential considerations would include sprain versus strain. Patient will be placed in a gel splint by the nursing staff and provided with crutches to assist with ambulation. Prescription for NSAIDs and instructed ice the affected area. Provided with a work note and referred to orthopedics on-call. Weightbearing as tolerated and return at anytime if worse. Procedure Procedures Sergio Charles DO 02/06/241722 [facility] Work Phone: 01-03-2024 Emergency department Note Discharge instructions reviewed with patient. Reviewed 3 new prescriptions for patient to waste picker at pharmacy and plan for patient to follow up with primary care provider. Patient educated to increase fluid intake and rest periods and to return to ER for worsening symptoms. Denies questions upon discharge. Declines wheelchair upon discharge. [facility] 01-03-2024 Emergency department Note Discharge instructions reviewed with patient. Reviewed 3 new prescriptions for patient to waste picker at pharmacy and plan for patient to follow up with primary care provider. Patient educated to increase fluid intake and rest periods and to return to ER for worsening symptoms. Denies questions upon discharge. Declines wheelchair upon discharge. Dr Ferreira to cart side Emergency Department Report [facility] EMERGENCY DEPARTMENT Service Date:.01/03/24 PCP: Barbara Charles Chief Complaint: Chief Complaint Patient presents with Nausea Fever Chills Patient to ED with c/o nausea, fever, chills, generalized body aches. Patient states symptoms started yesterday. BRIONNA Plasencia is a 48 y.o. female presents to the ED with chief complaint of nausea chills and fever with congestion. Patient was symptoms have been going on for the past 2 days. She states she was had no sick contacts that she was aware of. She has had no vomiting or diarrhea. She denies any neck stiffness or rash. She denies frequency urgency. She denies any chance of being . She does not smoke. She has taken tibq-rhb-fjrnchi medications Review of Systems: Review of Systems Review of Systems Constitutional: Negative for weight change. Positive for fever and chills. Positive for malaise and aches Skin: Negative for rash or bruising HENT: Positive for congestion. Negative for sore throat. Eyes: Negative Cardiovascular: Negative Gastrointestinal: Positive for nausea. Negative for vomiting Respiratory: Positive for dry nonproductive cough Genitourinary: Negative for frequency urgency or dysuria Musculoskeletal: Negative for fall or injury Neurological: Negative for headache, weakness Past Medical History: Past Medical History: Diagnosis Date Abscess of nose (septum) Past Surgical History: Past Surgical History: Procedure Laterality Date CHOLECYSTECTOMY Allergies: No Known Allergies Medications: Patient's Medications New Prescriptions ALBUTEROL 108 (90 BASE) MCG/ACT AERO SOLN INHALER Inhale 2 puffs every 4 hours as needed. DOXYCYCLINE MONOHYDRATE 100 MG CAPSULE Take 1 capsule by mouth every 12 hours for 10 days. ONDANSETRON 4 MG TAB DISPERSIBLE TABLET Take 1 tablet by mouth every 4 hours as needed for Nausea. Place on tongue Previous Medications ASPIRIN 81 MG CHEW TAB CHEWABLE TABLET Chew 1 tablet daily. CYCLOBENZAPRINE 10 MG TABLET Take 1 tablet by mouth 3 times daily as needed for Muscle spasms. FLUTICASONE 50 MCG/ACT SUSPENSION NASAL SPRAY 2 sprays by Nasal route daily. NAPROXEN 500 MG TABLET Take 1 tablet by mouth 2 times daily with meals. OMEPRAZOLE PO Take by mouth. OXYCODONE-ACETAMINOPHEN 5-325 MG PER TABLET Take 1 tablet by mouth every 8 hours as needed for up to 3 days. PREDNISONE 20 MG TABLET Take 1 tablet by mouth daily. SUCRALFATE (CARAFATE PO) Take by mouth. TRIAMTERENE-HYDROCHLOROTHIAZIDE 75-50 MG TABLET Take 1 tablet by mouth daily. Modified Medications No medications on file Discontinued Medications No medications on file Family History: History reviewed. No pertinent family history. Social History: Social History Socioeconomic History Marital status: Single Spouse name: Not on file Number of children: Not on file Years of education: Not on file Highest education level: Not on file Occupational History Not on file Tobacco Use Smoking status: Never Smokeless tobacco: Never Vaping Use Vaping status: Never Used Substance and Sexual Activity Alcohol use: Never Drug use: Never Sexual activity: Not on file Other Topics Concern Not on file Social History Narrative Not on file Social Determinants of Health Financial Resource Strain: Low Risk (10/22/2019) Received from [facility] Overall Financial Resource Strain (CARDIA) Difficulty of Paying Living Expenses: Not hard at all Food Insecurity: No Food Insecurity (10/22/2019) Received from [facility] Hunger Vital Sign Worried About Running Out of Food in the Last Year: Never true Ran Out of Food in the Last Year: Never true Transportation Needs: No Transportation Needs (10/22/2019) Received from [facility] PRAPARE - Transportation Lack of Transportation (Medical): No Lack of Transportation (Non-Medical): No Physical Activity: Unknown (10/22/2019) Received from [facility] Exercise Vital Sign Days of Exercise per Week: 5 days Minutes of Exercise per Session: Not on file Stress: No Stress Concern Present (10/22/2019) Received from [facility] [place] of Occupational Health - Occupational Stress Questionnaire Feeling of Stress : Not at all Social Connections: Unknown (10/22/2019) Received from [facility] Social Connection and Isolation Panel [NHANES] Frequency of Communication with Friends and Family: Not on file Frequency of Social Gatherings with Friends and Family: Never Attends Confucianism Services: Not on file Active Member of Clubs or Organizations: Not on file Attends Club or Organization Meetings: Not on file Marital Status: Not on file Intimate Partner Violence: Not on file Housing Stability: Low Risk (10/22/2019) Received from [facility] Housing Stability Vital Sign Unable to Pay for Housing in the Last Year: No Number of Places Lived in the Last Year: 1 Unstable Housing in the Last Year: No Physical Exam: Physical Exam General: Well-developed well-nourished nontoxic HENT: Head is atraumatic. Scalp is nontender. Face is symmetric. Mucous membranes are hydrated. TMs are clear Eyes: Pupils are equal Skin: Warm and dry no rash Abdomen: Soft. No distention, guarding, rebound Respiratory: Clear in all escalante. Respirations nonlabored. No wheezing Heart: Heart tones are regular Neurologic: Awake, alert, oriented, answering questions appropriately. Moving all extremities well. No nuchal rigidity Lymphatic: No anterior-posterior cervical lymphadenopathy Musculoskeletal: No trauma no fracture or deformity Psychiatric: Cooperative with examiner Vital Signs During ED Visit Patient Vitals for the past 24 hrs: BP Temp Temp src Pulse Resp SpO2 Height Weight 01/03/242123 143/67 97.8 F (36.6 C) Oral 83 18 99 % -- -- 01/03/242122 -- -- -- -- -- -- 1.702 m (5' 7") 106.6 kg (235 lb) Orders/Results: Results for orders placed or performed during the hospital encounter of 01/03/24 [facility] 1 - NASOPHARYNGEAL Specimen: NASOPHARYNGEAL; Fluid/Swab Result Value Ref Range SARS COV 2 RNA, QL REAL TIME RT PCR NOT DETECTED NOT DETECTED NARRATIVE -1 This test was performed using isothermal MARY KAY for the qualitative detection of SARS-CoV-2 nucleic acid. INFLUENZA A AND B, PCR Result Value Ref Range INFLUENZA A NEGATIVE NEGATIVE INFLUENZA B NEGATIVE NEGATIVE Radiographic Imaging No orders to display Procedures: Procedures Moderate Sedation Procedure: No ED Summary/MDM Patient's influenza and COVID swab are negative. Her symptoms are consistent with a viral syndrome. She will be treated symptomatically at this time. She should follow up with the primary provider. Return if any worsening symptoms. Clinical Impression: 1. Viral illness No follow-ups on file. New Prescriptions ALBUTEROL 108 (90 BASE) MCG/ACT AERO SOLN INHALER Inhale 2 puffs every 4 hours as needed. DOXYCYCLINE MONOHYDRATE 100 MG CAPSULE Take 1 capsule by mouth every 12 hours for 10 days. ONDANSETRON 4 MG TAB DISPERSIBLE TABLET Take 1 tablet by mouth every 4 hours as needed for Nausea. Place on tongue Discontinued Medications No medications on file An After Visit Summary was printed and given to the patient with above information. . Cristopher Ferreira MD 01/03/242201 Dr Ferreira to cart side documented in this encounter [facility] 01-03-[address] Ferreira to cart side [facility] 01-03-2024 Physician Emergency department Note Emergency Department Report [facility] EMERGENCY DEPARTMENT Service Date:.01/03/24 PCP: Barbara Charles Chief Complaint: Chief Complaint Patient presents with Nausea Fever Chills Patient to ED with c/o nausea, fever, chills, generalized body aches. Patient states symptoms started yesterday. BRIONNA Plasencia is a 48 y.o. female presents to the ED with chief complaint of nausea chills and fever with congestion. Patient was symptoms have been going on for the past 2 days. She states she was had no sick contacts that she was aware of. She has had no vomiting or diarrhea. She denies any neck stiffness or rash. She denies frequency urgency. She denies any chance of being . She does not smoke. She has taken mxto-bus-vujeruh medications Review of Systems: Review of Systems Review of Systems Constitutional: Negative for weight change. Positive for fever and chills. Positive for malaise and aches Skin: Negative for rash or bruising HENT: Positive for congestion. Negative for sore throat. Eyes: Negative Cardiovascular: Negative Gastrointestinal: Positive for nausea. Negative for vomiting Respiratory: Positive for dry nonproductive cough Genitourinary: Negative for frequency urgency or dysuria Musculoskeletal: Negative for fall or injury Neurological: Negative for headache, weakness Past Medical History: Past Medical History: Diagnosis Date Abscess of nose (septum) Past Surgical History: Past Surgical History: Procedure Laterality Date CHOLECYSTECTOMY Allergies: No Known Allergies Medications: Patient's Medications New Prescriptions ALBUTEROL 108 (90 BASE) MCG/ACT AERO SOLN INHALER Inhale 2 puffs every 4 hours as needed. DOXYCYCLINE MONOHYDRATE 100 MG CAPSULE Take 1 capsule by mouth every 12 hours for 10 days. ONDANSETRON 4 MG TAB DISPERSIBLE TABLET Take 1 tablet by mouth every 4 hours as needed for Nausea. Place on tongue Previous Medications ASPIRIN 81 MG CHEW TAB CHEWABLE TABLET Chew 1 tablet daily. CYCLOBENZAPRINE 10 MG TABLET Take 1 tablet by mouth 3 times daily as needed for Muscle spasms. FLUTICASONE 50 MCG/ACT SUSPENSION NASAL SPRAY 2 sprays by Nasal route daily. NAPROXEN 500 MG TABLET Take 1 tablet by mouth 2 times daily with meals. OMEPRAZOLE PO Take by mouth. OXYCODONE-ACETAMINOPHEN 5-325 MG PER TABLET Take 1 tablet by mouth every 8 hours as needed for up to 3 days. PREDNISONE 20 MG TABLET Take 1 tablet by mouth daily. SUCRALFATE (CARAFATE PO) Take by mouth. TRIAMTERENE-HYDROCHLOROTHIAZIDE 75-50 MG TABLET Take 1 tablet by mouth daily. Modified Medications No medications on file Discontinued Medications No medications on file Family History: History reviewed. No pertinent family history. Social History: Social History Socioeconomic History Marital status: Single Spouse name: Not on file Number of children: Not on file Years of education: Not on file Highest education level: Not on file Occupational History Not on file Tobacco Use Smoking status: Never Smokeless tobacco: Never Vaping Use Vaping status: Never Used Substance and Sexual Activity Alcohol use: Never Drug use: Never Sexual activity: Not on file Other Topics Concern Not on file Social History Narrative Not on file Social Determinants of Health Financial Resource Strain: Low Risk (10/22/2019) Received from [facility] Overall Financial Resource Strain (CARDIA) Difficulty of Paying Living Expenses: Not hard at all Food Insecurity: No Food Insecurity (10/22/2019) Received from [facility] Hunger Vital Sign Worried About Running Out of Food in the Last Year: Never true Ran Out of Food in the Last Year: Never true Transportation Needs: No Transportation Needs (10/22/2019) Received from [facility] PRAPARE - Transportation Lack of Transportation (Medical): No Lack of Transportation (Non-Medical): No Physical Activity: Unknown (10/22/2019) Received from [facility] Exercise Vital Sign Days of Exercise per Week: 5 days Minutes of Exercise per Session: Not on file Stress: No Stress Concern Present (10/22/2019) Received from [facility] [place] of Occupational Health - Occupational Stress Questionnaire Feeling of Stress : Not at all Social Connections: Unknown (10/22/2019) Received from [facility] Social Connection and Isolation Panel [NHANES] Frequency of Communication with Friends and Family: Not on file Frequency of Social Gatherings with Friends and Family: Never Attends Confucianism Services: Not on file Active Member of Clubs or Organizations: Not on file Attends Club or Organization Meetings: Not on file Marital Status: Not on file Intimate Partner Violence: Not on file Housing Stability: Low Risk (10/22/2019) Received from [facility] Housing Stability Vital Sign Unable to Pay for Housing in the Last Year: No Number of Places Lived in the Last Year: 1 Unstable Housing in the Last Year: No Physical Exam: Physical Exam General: Well-developed well-nourished nontoxic HENT: Head is atraumatic. Scalp is nontender. Face is symmetric. Mucous membranes are hydrated. TMs are clear Eyes: Pupils are equal Skin: Warm and dry no rash Abdomen: Soft. No distention, guarding, rebound Respiratory: Clear in all escalante. Respirations nonlabored. No wheezing Heart: Heart tones are regular Neurologic: Awake, alert, oriented, answering questions appropriately. Moving all extremities well. No nuchal rigidity Lymphatic: No anterior-posterior cervical lymphadenopathy Musculoskeletal: No trauma no fracture or deformity Psychiatric: Cooperative with examiner Vital Signs During ED Visit Patient Vitals for the past 24 hrs: BP Temp Temp src Pulse Resp SpO2 Height Weight 01/03/242123 143/67 97.8 F (36.6 C) Oral 83 18 99 % -- -- 01/03/242122 -- -- -- -- -- -- 1.702 m (5' 7") 106.6 kg (235 lb) Orders/Results: Results for orders placed or performed during the hospital encounter of 01/03/24 [facility] 1 - NASOPHARYNGEAL Specimen: NASOPHARYNGEAL; Fluid/Swab Result Value Ref Range SARS COV 2 RNA, QL REAL TIME RT PCR NOT DETECTED NOT DETECTED NARRATIVE -1 This test was performed using isothermal MARY KAY for the qualitative detection of SARS-CoV-2 nucleic acid. INFLUENZA A AND B, PCR Result Value Ref Range INFLUENZA A NEGATIVE NEGATIVE INFLUENZA B NEGATIVE NEGATIVE Radiographic Imaging No orders to display Procedures: Procedures Moderate Sedation Procedure: No ED Summary/MDM Patient's influenza and COVID swab are negative. Her symptoms are consistent with a viral syndrome. She will be treated symptomatically at this time. She should follow up with the primary provider. Return if any worsening symptoms. Clinical Impression: 1. Viral illness No follow-ups on file. New Prescriptions ALBUTEROL 108 (90 BASE) MCG/ACT AERO SOLN INHALER Inhale 2 puffs every 4 hours as needed. DOXYCYCLINE MONOHYDRATE 100 MG CAPSULE Take 1 capsule by mouth every 12 hours for 10 days. ONDANSETRON 4 MG TAB DISPERSIBLE TABLET Take 1 tablet by mouth every 4 hours as needed for Nausea. Place on tongue Discontinued Medications No medications on file An After Visit Summary was printed and given to the patient with above information. . Cristopher Ferreira MD 01/03/242201 [facility] 01-03-[address] Ferreira to cart side [facility] 06-20-2023 Note HNO ID: [id number] Author: ARTIS LOVING APRN.[employer] Service: ? Author Type: Nurse Practitioner Type: Progress Notes Filed: 06/20/2023 19:26 Note Text: Subjective HPI Nontoxic-appearing female presents urgent care chief complaint bilateral ear discomfort. Duration of symptoms 2 to 3 days. Associated symptoms bilateral ear discomfort bump on the inner lip. States ear is the most bothersome symptom today. Has not used any OTC medications. No known sick contacts. No ear trauma loss of hearing or otorrhea. Denies any fever body aches chills productive cough chest pain shortness of breath pleuritic pain hemoptysis nausea vomiting abdominal pain change in bowel or bladder habits. Past medical history prescription medication use and allergies reviewed. .Patient presents with: Ear Pain: bilateral, nausea x 2 days, bump on inside of lip x 3 days PAST MEDICAL HISTORY Diagnosis Date ALLERGY, UNSPECIFIED 11/23/2004 Bilateral Knee Pain 12/23/2004 DDD (degenerative disc disease), lumbar Depression Obesity, unspecified Obstructive sleep apnea Snoring PAST SURGICAL HISTORY Procedure Laterality Date COLONOSCOPY 05/16/15 Dr. Chou PAST SURGICAL HISTORY OF 05/16/15 Dr. Chou Endoscopy SEPTOPLASTY/SUBMUCOUS RESECJ W/WO CARTILAGE GRF 05/31/05 Septoplasty STRABISMUS RECESSION/RESCJ 1 HRZNTL [facility] Bilateral 1986 Strabismus surgery ALLERGIES Patient has no known allergies. MEDICATIONS triamterene-hydroCHLOROthiazide (MAXZIDE-25) 37.5-25 mg per tablet Take 1 tablet by mouth once daily. omeprazole (PRILOSEC) 40 mg capsule Take 1 capsule by mouth once daily. May substitute two 20 mg pills if 40 mg not covered(dispense #360, of 20 mg pills if this is the case) aspirin, enteric coated (ASPIRIN, ENTERIC COATED) 81 mg EC tablet Take 1 tablet by mouth once daily. sucralfate (CARAFATE) 1 gram tablet Take 1 tablet by mouth before meals and at bedtime. fluticasone (FLONASE) 50 mcg/actuation nasal spray Use 2 Sprays in each nostril once daily. naproxen (NAPROSYN) 500 mg tablet Take 1 tablet by mouth once daily as needed (pain/inflammation, take with food.). COMPOUNDED PRESCRIPTION KNEE HIGH COMPRESSION STOCKINGS 30-40 MM. DX: (R60.9) Edema; (I87.8) Venous stasis; (R60.0) Bilateral leg edema CPAP Change Auto PAP to 5-13 cm of water with humidification. Mask (per patient preference) optional chin strap (if indicated) , filters, tubing, humidifier and lifetime supplies. COMPOUNDED PRESCRIPTION Compression knee-highs for LE edema. CPAP Please do mask refitting for skin irritation from nasal pillows and leaking. Consider FFM when eligible for new mask. FAMILY HISTORY Problem Relation Age of Onset Diabetes Father other (leukemia) Father Hypertension Mother Heart Attack Mother Stroke Mother Migraines Mother other (breast tumor benign) Mother other (Menieres disease) Mother No Known Problems Brother No Known Problems Maternal Grandmother No Known Problems Brother Factor 5 Leiden Daughter Social History Tobacco Use Smoking status: Never Smokeless tobacco: Never Vaping Use Vaping Use: Never used Substance Use Topics Alcohol use: No Drug use: No BP 128/76 Pulse 76 Temp 36.1 ?C (97 ?F) Resp 16 Wt 118.7 kg (261 lb 11 oz) LMP 07/16/2017 SpO2 99% BMI 41.91 kg/m? Review of Systems Constitutional: Negative for chills, fever and malaise/fatigue. HENT: Positive for ear pain. Negative for congestion, ear discharge, sinus pain and sore throat. Eyes: Negative for blurred vision, pain, discharge and redness. Respiratory: Negative for cough, hemoptysis, sputum production, shortness of breath, wheezing and stridor. Cardiovascular: Negative for chest pain. Gastrointestinal: Positive for nausea. Negative for abdominal pain, diarrhea and vomiting. Musculoskeletal: Negative for myalgias. Skin: Negative for itching and rash. Neurological: Negative for dizziness and headaches. Objective Physical Exam Constitutional: General: She is not in acute distress. Appearance: She is not diaphoretic. HENT: Head: Normocephalic. Jaw: No trismus, tenderness, swelling or pain on movement. Right Ear: Tympanic membrane, ear canal and external ear normal. Left Ear: Tympanic membrane, ear canal and external ear normal. Ears: Comments: Clear fluid noted behind bilateral TMs. Right greater than left. Mouth/Throat: Mouth: Mucous membranes are moist. Pharynx: Oropharynx is clear. Uvula midline. No pharyngeal swelling, oropharyngeal exudate, posterior oropharyngeal erythema or uvula swelling. Comments: Small viral ulcer noted right side lower inner lip. Eyes: Conjunctiva/sclera: Conjunctivae normal. Pupils: Pupils are equal, round, and reactive to light. Cardiovascular: Rate and Rhythm: Normal rate and regular rhythm. Heart sounds: Normal heart sounds. Pulmonary: Effort: Pulmonary effort is normal. No tachypnea, accessory muscle usage (more content not included)... [facility] 06-20-2023 History of Present illness Narrative Subjective HPI Nontoxic-appearing female presents urgent care chief complaint bilateral ear discomfort. Duration of symptoms 2 to 3 days. Associated symptoms bilateral ear discomfort bump on the inner lip. States ear is the most bothersome symptom today. Has not used any OTC medications. No known sick contacts. No ear trauma loss of hearing or otorrhea. Denies any fever body aches chills productive cough chest pain shortness of breath pleuritic pain hemoptysis nausea vomiting abdominal pain change in bowel or bladder habits. Past medical history prescription medication use and allergies reviewed. .Patient presents with: Ear Pain: bilateral, nausea x 2 days, bump on inside of lip x 3 days PAST MEDICAL HISTORY Diagnosis Date ALLERGY, UNSPECIFIED 11/23/2004 Bilateral Knee Pain 12/23/2004 DDD (degenerative disc disease), lumbar Depression Obesity, unspecified Obstructive sleep apnea Snoring PAST SURGICAL HISTORY Procedure Laterality Date COLONOSCOPY 05/16/15 Dr. Chou PAST SURGICAL HISTORY OF 05/16/15 Dr. Chou Endoscopy SEPTOPLASTY/SUBMUCOUS RESECJ W/WO CARTILAGE GRF 05/31/05 Septoplasty STRABISMUS RECESSION/RESCJ 1 HRZNTL [facility] Bilateral 1986 Strabismus surgery ALLERGIES Patient has no known allergies. MEDICATIONS triamterene-hydroCHLOROthiazide (MAXZIDE-25) 37.5-25 mg per tablet Take 1 tablet by mouth once daily. omeprazole (PRILOSEC) 40 mg capsule Take 1 capsule by mouth once daily. May substitute two 20 mg pills if 40 mg not covered(dispense #360, of 20 mg pills if this is the case) aspirin, enteric coated (ASPIRIN, ENTERIC COATED) 81 mg EC tablet Take 1 tablet by mouth once daily. sucralfate (CARAFATE) 1 gram tablet Take 1 tablet by mouth before meals and at bedtime. fluticasone (FLONASE) 50 mcg/actuation nasal spray Use 2 Sprays in each nostril once daily. naproxen (NAPROSYN) 500 mg tablet Take 1 tablet by mouth once daily as needed (pain/inflammation, take with food.). COMPOUNDED PRESCRIPTION KNEE HIGH COMPRESSION STOCKINGS 30-40 MM. DX: (R60.9) Edema; (I87.8) Venous stasis; (R60.0) Bilateral leg edema CPAP Change Auto PAP to 5-13 cm of water with humidification. Mask (per patient preference) optional chin strap (if indicated) , filters, tubing, humidifier and lifetime supplies. COMPOUNDED PRESCRIPTION Compression knee-highs for LE edema. CPAP Please do mask refitting for skin irritation from nasal pillows and leaking. Consider FFM when eligible for new mask. FAMILY HISTORY Problem Relation Age of Onset Diabetes Father other (leukemia) Father Hypertension Mother Heart Attack Mother Stroke Mother Migraines Mother other (breast tumor benign) Mother other (Menieres disease) Mother No Known Problems Brother No Known Problems Maternal Grandmother No Known Problems Brother Factor 5 Leiden Daughter Social History Tobacco Use Smoking status: Never Smokeless tobacco: Never Vaping Use Vaping Use: Never used Substance Use Topics Alcohol use: No Drug use: No BP 128/76 Pulse 76 Temp 36.1 C (97 F) Resp 16 Wt 118.7 kg (261 lb 11 oz) LMP 07/16/2017 SpO2 99% BMI 41.91 kg/m Review of Systems Constitutional: Negative for chills, fever and malaise/fatigue. HENT: Positive for ear pain. Negative for congestion, ear discharge, sinus pain and sore throat. Eyes: Negative for blurred vision, pain, discharge and redness. Respiratory: Negative for cough, hemoptysis, sputum production, shortness of breath, wheezing and stridor. Cardiovascular: Negative for chest pain. Gastrointestinal: Positive for nausea. Negative for abdominal pain, diarrhea and vomiting. Musculoskeletal: Negative for myalgias. Skin: Negative for itching and rash. Neurological: Negative for dizziness and headaches. Objective Physical Exam Constitutional: General: She is not in acute distress. Appearance: She is not diaphoretic. HENT: Head: Normocephalic. Jaw: No trismus, tenderness, swelling or pain on movement. Right Ear: Tympanic membrane, ear canal and external ear normal. Left Ear: Tympanic membrane, ear canal and external ear normal. Ears: Comments: Clear fluid noted behind bilateral TMs. Right greater than left. Mouth/Throat: Mouth: Mucous membranes are moist. Pharynx: Oropharynx is clear. Uvula midline. No pharyngeal swelling, oropharyngeal exudate, posterior oropharyngeal erythema or uvula swelling. Comments: Small viral ulcer noted right side lower inner lip. Eyes: Conjunctiva/sclera: Conjunctivae normal. Pupils: Pupils are equal, round, and reactive to light. Cardiovascular: Rate and Rhythm: Normal rate and regular rhythm. Heart sounds: Normal heart sounds. Pulmonary: Effort: Pulmonary effort is normal. No tachypnea, accessory muscle usage or respiratory distress. Breath sounds: Normal breath sounds. No stridor. No wheezing, rhonchi or rales. Abdominal: General: There is no distension. Palpations: Abdomen is soft. Tenderness: There is no abdominal tenderness. There is no guarding or rebound. Musculoskeletal: Cervical back: Normal range of motion and neck supple. No edema, erythema, rigidity or tenderness. No pain with movement. Normal range of motion. Lymphadenopathy: Cervical: No cervical adenopathy. Skin: General: Skin is warm and dry. Neurological: Mental Status: She is alert and oriented to person, place, and time. ASSESSMENT/PLAN: 1. Eustachian tube dysfunction, bilateral - ICD9: 381.81, ICD10: H69.93 Diagnosed with eustachian tube dysfunction. No evidence of acute abdomen. No evidence of bacterial infection. Treat with Flonase and antihistamine. Patient was educated on supportive therapies. Patient will follow up with primary care provider as needed. Patient was instructed to immediately proceed to emergency room for any new, worsening, or symptoms lasting longer than anticipated. The patient's clinical presentation is otherwise unremarkable at this time. Based on exam and clinical finding, the patient is stable for discharge. Plan of care was discussed with patient. Patient verbalizes understanding and agrees to plan of care. This note was generated using [employer] software. It may contain errors in wording, punctuation, or spelling. Artis Loving APRN.REAL ESTATE INTERN documented in this encounter [facility] 05-23-2023 Discharge summary Note Date/Time May 23, 2023 8:13pm [facility] Medical Records Department [address] [place] [id number] Emergency Department Summary 05/23/23 MR#: [id number] Acct: [id number] Name: MARICARMEN HART Rep # :[id number] : 1975 47 From: Rigo Henley MD PCP: Dr. Barbara Charles MD Statu s:REG ER Location: ED HPI History of Present Illness Chief Complaint: Chest Pain Detail of Chief Complaint: Chest tightness and tingling left upper extremity started 1 hour prior to p Informant: patient Onset/Context/Timing Onset: Hours Activity at onset: sudden and light activity Timing: Continuous Quality: Positive for Pressure and Tightness Location: Substernal Current Severity: Mild Maximum Severity: Severe Worsened By: Nothing Relieved By: Nothing Associated Symptoms: Positive for Nausea, Diaphoresis and Dyspnea; Negative for Vomiting, Cough, Fever, Lightheadedness, Acid Reflux or Palpitations Narrative Narrative: Patient is a 47-year-old woman who is a non-smoker. She has no history of diabetes, hypercholesterolemia. She does have history of hypertension. She is a non-smoker. 1 family had AR at early age. Patient is still experiencing pain and tingling in her left upper extremity. She denies fever, chills night sweats. She denies headache, visual, ocular auditory symptoms. She denies upper respiratory tract infectious symptoms. She denies leg pain, swelling discoloration. She denies history of VTE or risk factors for VTE. She denies intolerance to greasy or fried foods. She is status post cholecystectomy. She does have history of reflux. She states has never had pain like this with her reflux. Prior Similar Symptoms: No Recent Illness/Hospitalization: No CVD Risk Factors: Positive for Hypertension and Family History 1' </=55; Negative for Diabetes, Hypercholesterolemia or Smoking PE Risk Factors: Negative for Recent Travel/Surgery, Recent Immobilization, Prior DVT or PE, Cancer or OCP + Smoking + >/=35 TAD Risk Factors: Positive for Hypertension; Negative for Marfan's Syndrome or Family History [facility] Medical History Acute cholecystitis H/O corrected congenital abnormality of eye History of stress test RAFAEL on CPAP Sleep apnea Home Medications sucralfate 1 gram tablet 1 g PO 4X/DAY ACID REFLUX 08/13/16 [History Last Taken 12/11/20] fluticasone propionate 50 mcg/actuation nasal spray,suspension 1 spray NASAL DAILY allergies 04/17/19 [History Last Taken 12/09/20] naproxen 250 mg tablet 500 mg PO BID PRN Pain 04/17/19 [History Last Taken 12/11/20] omeprazole 40 mg capsule,delayed release 40 mg PO BID gerd 01/28/20 [History Last Taken 12/11/20] triamterene 37.5 mg-hydrochlorothiazide 25 mg tablet 1 tab PO DAILY bp 01/28/20 [History Last Taken 12/11/20] aspirin 81 mg tablet,delayed release 81 mg PO DAILY heart health 03/17/20 [History Last Taken 12/10/20] acetaminophen 325 mg tablet (Tylenol) 650 mg (2 x 325 mg) PO Q4H PRN PRN P/F #0 tabs 12/12/20 [Rx Last Taken Unknown] albuterol sulfate 90 mcg/actuation aerosol inhaler (Ventolin HFA) 1 - 2 puff inhalation Q4H PRN PRN Wheezing ##1 02/17/23 [Rx Last Taken Unknown] Allergy/AdvReac Type Severity Reaction Status Date / Time No Known Allergies Allergy Verified 05/23/23 18:29 Family History Father Leukemia CVA (cerebral vascular accident) Myocardial infarction Hypertension Mother Breast cancer CVA (cerebral vascular accident) Myocardial infarction Grandmother Arthritis Surgical History History of nasal surgery Status post laparoscopic cholecystectomy Social History household members: other details: daughter and mother housing: house Smoking Status: Never smoker alcohol intake: never what type of physical activity do you participate in: none do you feel safe at home: Yes ROS ROS ED Constitutional Constitutional ED: Denies chills, fever(s), subjective, sweats or weight loss Eyes Eyes: Reports none ENT ENT ED: Denies rhinorrhea or sore throat Cardiovascular Cardiovascular: Reports as per HPI; Denies orthopnea or paroxysmal nocturnal dyspnea Respiratory/Chest Respiratory/Chest: Reports dyspnea; Denies cough, dyspnea on exertion, orthopneaor paroxysmal nocturnal dyspnea Gastrointestinal Gastrointestinal: Denies abdominal pain, nausea or vomiting Genitourinary Genitourinary ED: Denies dysuria, hematuria or urinary frequency Musculoskeletal Musculoskeletal: Denies arthralgias, back pain or myalgias Integumentary Denies rash Neurologic Neurologic: Denies headache(s) Psychiatric Psychiatric: Reports anxiety; Denies depression Endocrine Endocrinology: Denies cold intolerance, heat intolerance, polydipsia or polyuria Hematologic/Lymphatic Hematologic/Lymphatic: Denies easy bleeding or easy bruising EXAM Physical Exam Const Vital Signs: 05/23/23 18:30 05/23/23 18:36 05/23/23 19:35 Temperature 97.1 F L Temperature Source Temporal Pulse Rate 97 Respiratory Rate 18 Respiratory Effort Normal Respiratory Pattern Normal Blood Pressure 161/56 H Blood Pressure Mean 91 Pulse Ox 100 Oxygen Delivery Method Room Air Room Air 05/23/23 19:35 05/23/23 19:41 05/23/23 19:51 Temperature Temperature Source Pulse Rate 85 81 90 Respiratory Rate 12 Respiratory Effort Respiratory Pattern Blood Pressure 119/76 119/76 130/61 H Blood Pressure Mean 90 Pulse Ox 97 Oxygen Delivery Method Room Air 05/23/23 20:04 05/23/23 20:58 05/23/23 22:13 Temperature Temperature Source Pulse Rate 84 76 80 Respiratory Rate 18 12 Respiratory Effort Respiratory Pattern Blood Pressure 120/57 L 130/63 H 129/79 H Blood Pressure Mean 85 95 Pulse Ox 99 99 Oxygen Delivery Method Room Air Room Air 05/23/23 21:00 Temperature Temperature Source Pulse Rate Respiratory Rate 14 Respiratory Effort Respiratory Pattern Blood Pressure 117/56 L Blood Pressure Mean 76 Pulse Ox 95 Oxygen Delivery Method Room Air Positive well nourished and obese General Appearance ED: NAD; Negative for pallor Nutritional Appearance: obese HEENT Reports moist mucous membranes normocephalic and atraumatic Eyes PERRL and EOMs intact bilaterally General Eye ED: Negative for pale conjunctiva or scleral icterus Neck no lymphadenopathy, supple and no JVD Chest Wall inspection of chest normal and palpation of chest normal Resp normal respiratory effort and clear to auscultation bilaterally Cardio regular rate, regular rhythm, S1 normal heart sound, S2 normal heart sound and no murmurs Peripheral Pulses: pulses 2+ throughout GI normal to inspection, nondistended, normoactive bowel sounds, soft to palpation,non-tender, non-distended and no masses; Negative for hepatosplenomegaly Back/Spine no CVA tenderness Extremity normal to inspection General Extremety ED: Yes edema; Negative for pulses abnormal or tenderness General Extremity: edema; Negative for pulses abnormal Neuro oriented x3, CN's II-XII intact bilaterally, no sensory deficits noted and gait normal Sensorium / Orientation: awake and alert Psych mental status grossly normal Skin no rashes or lesions noted and no wounds General Skin Exam: Negative for jaundice or pallor MDM MDM MDM Narrative Medical decision making narrative: Torrential diagnosis cardiac versus noncardiac pain. Noncardiac pain would include reflux, peptic ulcer disease, biliary disease, pulmonary disease. EKG, appropriate blood work and chest x-ray obtained. Lab Data Attestation: I reviewed the patient's lab results. Lab results narrative: CBC is unremarkable. Basic metabolic panel is normal. First troponin is 3. Second troponin is 4. Delta is 1. This rules out cardiac etiology. Labs: Laboratory Results - last 24 hr 05/23/23 05/23/23 18:47 21:00 WBC 8.9 RBC 4.26 Hgb 11.7 L Hct 38.4 MCV 90.1 MCH 27.5 MCHC 30.5 L RDW Std Deviation 45.2 H RDW Coeff of Rai 13.8 Plt Count 298 MPV 10.0 Immature Gran % (Auto) 0.500 Neut % (Auto) 68.9 Lymph % (Auto) 24.1 Motley % (Auto) 5.2 Eos % (Auto) 0.7 Baso % (Auto) 0.6 Absolute Neuts (auto) 6.1 Absolute Lymphs (auto) 2.13 Nucleated RBC % 0 Sodium 139 Potassium 3.2 L Chloride 106 Carbon Dioxide 29.0 Anion Gap 4 L BUN 9 Creatinine 0.96 Estim Creat Clear Calc 92.95 Est GFR (MDRD) Af Amer 79 Est GFR (MDRD) Non-Af 65 BUN/Creatinine Ratio 9.3 L Glucose 88 Calcium 9.2 Troponin I High Sens 3 4 Radiography Chest X-Ray - ED: Read by ED Physician (Single view portable chest x-ray completely reviewed interpreted by me at 2008. It is normal. Cardiac silhouette size normal. Lung parenchyma normal. Perihilar region normal. Osseous structures are normal.) Diagnostic Testing: Clinical Impression(s) from Imaging Studies Chest X-Ray 05/23/23 19:35 IMPRESSION: No radiographic evidence of acute cardiopulmonary disease. Electronically Signed: Raissa Perez MD at 20:21 EST , Treatment and Re-Evaluation :: Because this is not like her reflux describes a tight pressure sensation in she received aspirin and nitroglycerin. Patient reported no improvement with nitroglycerin. Since she has a history of GERD and the first troponin was 3 GI cocktail was ordered. Awaiting 2-hour troponin. Patient had to be awakened from sleep. When asked if her pain was better she paused and stated yes. She would not state that it resolved. Patient was informed based on her EKG workup this is not her heart. I informed her that things it is not. I cannot say with any degree of certainty what it is but my suspicions are that this is related to her reflux. She did report improvement after GI cocktail. Discharge Plan Triage Chief Complaint: Chest Pain ED Provider: Rigo Henley Dx/Rx/DC Orders Clinical Impression: Chest tightness, Obesity (BMI 30-39.9), HTN (hypertension), Obstructive sleep apnea, History of gastroesophageal reflux (GERD) Instructions: ED Chest Pain, Noncardiac, ED GERD (Adult) Prescriptions: No Action aspirin 81 mg tablet,delayed release (DR/EC) 81 mg PO DAILY Patient Comments: take 1 tablet by mouth once daily sucralfate 1 GM tablet 1 g PO 4X/DAY Patient Comments: TAKE BEFORE EVERY MEAL naproxen 250 MG tablet 500 mg PO BID PRN (Reason: Pain) fluticasone propionate 9.9 ML spray,suspension 1 spray NASAL DAILY omeprazole 40 MG capsule,delayed release(DR/EC) 40 mg PO BID triamterene-hydrochlorothiazid 1 EACH tablet 1 tab PO DAILY acetaminophen [Tylenol] 325 mg Tablet 650 mg PO Q4H PRN PRN (Reason: P/F) Qty: 0 0RF albuterol sulfate [Ventolin HFA] 90 mcg/actuation HFA aerosol inhaler 1 - 2 puff inhalation Q4H PRN PRN (Reason: Wheezing) Qty: 1 0RF Primary Care Provider: Barbara Charles Referrals: Barbara Charles MD [Primary Care Provider] - 3-5 Days Disposition Disposition: Home, Self Care What to do if you have Problems For any increased pain, shortness of breath, bleeding, nausea or vomiting, chestpain, or any unexpected problems, contact your Primary Care Provider. Call [facility] ([phone]) or report to the closest Emergency Room. Call 911 if necessary. 05/23/232234 <Electronically signed by Rigo Henley MD> Cosigner Signature (if applicable): CC: Dr. Barbara Charles MD ~ Signed [facility] Work Phone: 1(992) 537-158707-28-2023 History of Present illness Narrative* Sonya Gimenez MA - 10/29/2022 1:20 PM EDT Subjective Patient ID: Maricarmen Bundy is a 47 y.o. female who presents for Patient has a itch and went to and it was put on prednisone. It still hasn't helped even thought she has not hives/rash she is still itching. Also on left foot it is peeling no itching HPI Review of Systems Objective There were no vitals taken for this visit. Physical Exam Assessment/Plan * Barbara Charles MD - 10/29/2022 1:20 PM EDT Subjective Maricarmen Bundy is a 47 y.o. female who presents for No chief complaint on file.. Here to get established. She is having issues with itching. She went to urgent care and was startedon prednisone and that is not helping, she [...] Established Barbara Charles MD [facility] Work Phone: [phone]) 120-703407-28-2023 Instructions* Patient Instructions* Barbara Charles MD - 10/29/2022 1:20 PM EDT We discussed the possibility of scabies - the likelihood seems low but will treat for that just in case, will also add hydroxyzine for the itching. Get labs. Follow up in 2 weeks, sooner if needed. [facility] Work Phone: [phone]) 417-931906-07-2023 NotePatient Outreach (INTMMN) MARICARMEN PLASENCIA ([id number]) 1975 F Date Time Provider Department 09/08/22 RAMIRO PRECIADO INTMMN During your visit today, we recorded the following information about you: Allergies As of Date: 09/08/2022 (No Known Allergies) Date Reviewed: 03/20/2020 Reviewed by: Scarlett Torres - Fully Assessed Visit Diagnosis:Encounter for screening mammogram for breast cancer [Z12.31] Order(s):[facility] SCREENING W TATE [[id number]] Order #: [id number] FUTURE Prescriptions as of 09/13/2022 - triamterene-hydroCHLOROthiazide (MAXZIDE-25) 37.5-25 mg per tablet Take 1 [...] 03/10/2020 Encounter Status:Closed by EPIC, PRODUSER on 09/13/22[facility] 07-28-2021 Miscellaneous Notes* Telephone Encounter - Charlene Mason APRN.AGRICULTURAL SERVICES DIRECTOR - 07/28/2021 4:32 PM EDT please schedule an appt with PCP. Can schedule with me if willing. * Telephone Encounter - Val Love LPN - 07/28/2021 3:02 PM EDT Patient has been identified by name and [...] Please advise. Thank you. Val Love LPN * Telephone Encounter - Val Love LPN - 07/28/2021 3:01 PM EDT Images from the original note were not included. I have been scheduled to see dr Preciado but it keeps getting cancelled or rescheduled. I also needdo schedule a mammogram and have an annual checkup done. I have been taking the meds but with me moving they were I. My storage and I just finished them. I do need some to get back on track. Maricarmen Joyner * Telephone Encounter - Val Love LPN - 07/28/2021 1:52 PM EDT Maricarmen, are still taking the prescriptions you requested. All were last written 02/10/2021 for 90 days, you should have been out of medications in May. Also, our records indicate that you were last seen 10/22/2019 with no future appointment. Can we getyou scheduled for a medication follow-up? Val Love LPN [facility] Miscellaneous Notes* Telephone Encounter - Val Love LPN - 07/28/2021 10:20 AM EDT Patient has been identified by name and [...] you. Val Love LPN [facility] Emergency department Note * Soila Wiggins RN - 05/30/2021 8:38 PM EST Patient discharged per MD order, to exit by self, gait steady, safety maintained * Joelle Cary, REGIONAL SALES CONSULTANT-REAL ESTATE INTERN - 05/30/2021 7:56 PM EST Emergency Department Report [facility] EMERGENCY DEPARTMENT Service Date:.05/30/21 PCP: No primary care provider on file. Chief Complaint: Chief Complaint Patient presents with Back Pain Headache Fall HPI Maricarmen Plasencia is a 45 y.o. female presents to the ED today due to fall. 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 She was going down the stairs when she grabbed the hand railing. However she fell hitting the back of her head her neck her low backand her right elbow. She has a small [...] No signs of trauma or rigidity. Normal rangeof motion. Thoracic back: Normal. Lumbar back: Spasms [...] SpO2 Height 05/30/21 1842 1.702 m (5' 7") 05/30/21 1841 134/70 98.3 F (36.8 C) [...] and stable vital signs. She is afebrile. Sheanswers questions appropriately with clear speech. She is [...] Portions of this chart were created using [employer] electronic dictation. Please excuse any typographical or grammatical errors contained herein. . Joelle Cary APRN-REAL ESTATE INTERN 05/30/212012 Associated attestation - Sergio Magana MD - 05/30/2021 11:09 PM EST The Mid-level provider independently saw this patient. I was available for consult. * Loree Georges RN - 05/30/2021 6:44 PM EST Room 11 c/o head, neck and back, tailbone pain after slipping on ice and sliding on back down 5 steps. c-collar applied [facility] History of Past illness Narrative* Problem Noted Date Resolved Date Obesity, unspecified 12/18/2004 12/18/2004 Other dyspnea and respiratory abnormality 200401/06/2016 documented as of this encounter (statuses as of 07/28/2021) [facility] of Past illness Narrative* Problem Noted Date Resolved Date Obesity, unspecified 12/18/2004 12/18/2004 Other dyspnea and respiratory abnormality 200401/06/2016 documented as of this encounter (statuses as of 07/28/2021) [facility] of Past illness Narrative* Problem Noted Date Resolved Date Obesity, unspecified 12/18/2004 12/18/2004 Other dyspnea and respiratory abnormality 200401/06/2016 documented as of this encounter (statuses as of 10/05/2021) [facility] of Past illness Narrative* Problem Noted Date Resolved Date Obesity, unspecified 12/18/2004 12/18/2004 Other dyspnea and respiratory abnormality 200401/06/2016 documented as of this encounter (statuses as of 09/13/2022) [facility] of Past illness Narrative* Problem Noted Date Diagnosed Date Resolved Date Obesity, unspecified 12/18/2004 005 Other dyspnea and respiratory abnormality 11/23/2004 01/06/2016 documented as of this encounter (statuses as of 06/21/2023) [facility] note* Diagnosis Fall, initial encounter- Primary [facility]* Diagnosis Bilateral leg edema Edema Chronic rhinitis Gastroesophageal reflux disease Esophageal reflux [facility]* Diagnosis Encounter for screening mammogram for breast cancer documented in this encounter [facility] note* Diagnosis Encounter for screening mammogram for breast cancer documented in this encounter [facility] note* Diagnosis Rash- Primary Rash and other [...] of left knee documented in this encounter [facility] Work Phone: Evaluation noteNo assessment information available [facility] Work Phone: Evaluation note* Diagnosis Eustachian tube dysfunction, bilateral- Primary documented in this encounter [facility] note* Diagnosis Viral illness- Primary Unspecified viral infection, in conditions classified elsewhere and of unspecified site [facility] encounter [facility]* Diagnosis Sprain of left ankle, initial encounter- Primary documented in this encounter [facility] Work Phone: Hospital Discharge instructions* Attachments The following attachments cannot be sent through Care Everywhere. * Falls Are You at Risk? ([facility]) ([place]ian) [facility]* Attachments The following attachments cannot be sent through Care Everywhere. * Viral Infections ([place]ian) [facility]* Attachments The following attachments cannot be sent through Care Everywhere. * Ankle sprain ([place]ian) [facility] Work Phone: Reason for referral (narrative)* Diagnostic Procedure Only (Routine) - Pending Review Specialty Diagnoses / Procedures Referred By Nick nguyen Referred To Contact [facility] Diagnoses Encounter for screening mammogram for breast cancer Procedures BIANCA SCREENING W TATE SCREENING DIGITAL BREAST TOMOSYNTHESIS BI SCREENING MAMMOGRAPHY BI 2-VIEW BREAST INC Ramiro Strickland MD [facility] [place] [address] [place] [address] Referral ID Status Reason Start Date Expiration Date Visits Requested Visits Authorized [id number] Pending Review Auto-Generat ed Referral 09/30/2021 10/30/2022 1 1 [facility] for referral (narrative)* Diagnostic Procedure Only (Routine) - Pending Review Specialty Diagnoses / Procedures Referred By Nick nguyen Referred To Contact [facility] Diagnoses Encounter for screening mammogram for breast cancer Procedures BIANCA SCREENING W TATE SCREENING DIGITAL BREAST TOMOSYNTHESIS BI SCREENING MAMMOGRAPHY BI 2-VIEW BREAST INC Ramiro Strickland MD [address] [place] [address] [facility] [address] [place] [address] Referral ID Status Reason Start Date Expiration Date Visits Requested Visits Authorized [id number] Pending Review Auto-Generat ed Referral 09/08/2022 10/08/2023 1 1 [facility] for referral (narrative)* Consultation (Routine) - Authorized Specialty Diagnoses / Procedures Referred By Laraac t Referred To Contact Primary Care Diagnoses Rash Pruritus Allergic rhinitis, unspecified seasonality, unspecified trigger Gastroesophageal reflux disease, unspecified whether esophagitis present Peripheral edema Chronic pain of left knee Visit for screening mammogram Procedures Follow Up In Primary Care - Established Barbara Charles MD [address] [place] [address] [place] [address] Referral ID Status Reason Start Date Expiration Date V isits Requested Visits Authorized [id number] Authorized 10/29/2022 04/27/2023 1 1 * Imaging (Routine) - Authorized Specialty Diagnoses / Procedures Referred By Nick nguyen Referred To Contact Radiology Diagnoses Visit for screening mammogram Procedures BI mammo bilateral screening tomosynthesis Barbara Charles MD [address] [place] [address] Referral ID Status Reason Start Date Expiration Date Visits Requested Visits Authorized [id number] Authorized Perform Procedure 10/29/2022 04/27/2023 1 1 [facility] Work Phone: Summary Purpose Family History No Family History Records Found Relationship Condition Age at Onset Recorded Date/T leigh father Leukemia Unknown Cerebrovascular accident (CVA) Unknown Myocardial infarction Unknown Hypertension Unknown mother Malignant neoplasm of breast Unknown grandmother Arthritis Unknown Advance Directives No Advanced Directives Records FoundDocuments on File Type Date Recorded 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 Advance Directive(s) 02/03/2015 3:52 PM Documents on File Type Date Recorded 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 Advance Directive(s) 02/03/2015 3:52 PM Advance Directive Response Recorded Date/ Time Advance Directives No February 3:56pm Living Will No February 17, 2 023 3:33pm Power of Crystal Gazer No February 17, 2023 3:33pm Advance Directive Response Recorded Date/ Time Advance Directives No February 3:56pm Living Will No May 23, 2 024 6:36pm Power of Crystal Gazer No May 23, 2023 6:36pm Chief Complaint and Reason for Visit Chief Complaint COLD SX Chief Complaint COLD SX chest pain Additional Source Comments INFORMATION SOURCE (unrecogn ized section and content) DATE CREATED AUTHOR 09/22/2017 [facility] DATE CREATED AUTHOR AUTHOR'S ORGANIZ ATION 03/14/2018 [facility] DATE CREATED AUTHOR AUTHOR'S ORGANIZ ATION 12/20/2018 [facility] DATE CREATED AUTHOR AUTHOR'S ORGANIZ ATION 12/21/2018 [facility] DATE CREATED AUTHOR AUTHOR'S ORGANIZ ATION 01/04/2019 [facility] DATE CREATED AUTHOR AUTHOR'S ORGANIZ ATION 09/29/2020 [facility] DATE CREATED AUTHOR AUTHOR'S ORGANIZ ATION 07/28/2021 [facility] DATE CREATED AUTHOR AUTHOR'S ORGANIZ ATION 11/02/2022 [facility] DATE CREATED AUTHOR AUTHOR'S ORGANIZ ATION 06/04/2023 [facility] DATE CREATED AUTHOR AUTHOR'S ORGANIZ ATION 06/21/2023 [facility] DATE CREATED AUTHOR AUTHOR'S ORGANIZ ATION 01/05/2024 [facility] DATE CREATED AUTHOR AUTHOR'S ORGANIZ ATION 02/09/2024 [facility] <item> Privacy Markings (unrecogniz ed section and content) Section Author: Imani Santos PROHIBITION ON REDISCLOSURE OF CONFIDENTIAL INFORMATION This notice accompanies a disclosure of information concerning a client made to you with the consent of such client. Reason for Visit (unrecogniz ed section and content) Reason Comments Back Pain Headache Fall Reason Onset Date Comments Refill Request 07/28/2021 Reason Comments Ear Pain bilateral, nausea x 2 days, bump on inside of lip x 3 days Reason Comments Nausea Fever Chills Patient to ED with c /o nausea, fever, chills, generalized body aches. Patient states symptoms started yesterday. Reason Comments Ankle Pain Fall Pt tripped outside a nd fell onto her left knee and ankle. Complains of pain mainly in the left ankle but does state some pain in left knee and hip. Denies hitting head or LOC. Denies blood thinners. Pt thinks she is UTD on tetanus Scheduled Active and Recently Administ ered Medications (unrecognized section and content) Medication Order 05/28/2021 05/29/2021 05/30/2021 hydroCODone-acetaminophen (NORCO) 5-325 MG per tablet 1 tablet (COMPLETED) 1 tablet, Oral, ONCE, 1 dose, On 05/30/21 at 1930, 1916 (Given - Provid er: Soila Wiggins RN) ondansetron (ZOFRAN-ODT) disintegrating tablet 4 mg (COMPLETED) 4 mg, Oral, ONCE, 1 dose, On 05/30/21 at 1930 1916 (Given - Provid er: Soila Wiggins RN) Scheduled Medication Order 01/01/2024 01/02/2024 01/03/2024 ondansetron (ZOFRAN-ODT) disintegrating tablet 4 mg (COMPLETED) 4 mg, Sublingual, ONCE, 1 dose, On Tue01/03/24 at 2145 2139 (Given - Provid er: Deonna Delong RN) Scheduled Medication Order 02/04/2024 02/05/2024 02/06/2024 acetaminophen (Tylenol) tablet 650 mg (COMPLETED) 650 mg, oral, Once, On 02/06/24 at 1625, For 1 dose, If ordered PRN for pain, nurse is permitted to administer this medication for higher pain scores based on patient preference? Yes 1639 (Given - Provid er: Le Salmeron RN) Source Comments (unrecognize d section and content) In the event this informatio n is protected by the Federal Confidentiality of Alcohol and Drug Abuse Patient Records regulations: The Federal rules restrict any use of the information to criminally investigate or prosecute any alcohol or drug abuse patient.[facility] Center[facility] the event this information is protected by the Federal Confidentiality of Alcohol and Drug Abuse Patient Records regulations: The Federal rules restrict any use of the information to criminally investigate or prosecute any alcohol or drug abuse patient.[facility] Center[facility] the event this information is protected by the Federal Confidentiality of Alcohol and Drug Abuse Patient Records regulations: The Federal rules restrict any use of the information to criminally investigate or prosecute any alcohol or drug abuse patient.[facility] Center[facility] the event this information is protected by the Federal Confidentiality of Alcohol and Drug Abuse Patient Records regulations: The Federal rules restrict any use of the information to criminally investigate or prosecute any alcohol or drug abuse patient.[facility] Center[facility] the event this information is protected by the Federal Confidentiality of Alcohol and Drug Abuse Patient Records regulations: The Federal rules restrict any use of the information to criminally investigate or prosecute any alcohol or drug abuse patient.[facility] Care Teams (unrecognized sec tion and content) Shipping Technician Relationship Specialty Start Date End Date Ramiro Preciado MD [address] [place] [address] PCP - General 10/27/05 Shipping Technician Relationship Specialty Start Date End Date Ramiro Preciado MD [facility] [place] [address] PCP - General 10/27/05 Shipping Technician Relationship Specialty Start Date End Date Ramiro Preciado MD [address] [place] [id number] PCP - General 10/27/05 Shipping Technician Relationship Specialty Start Date End Date Ramiro Preciado MD [address] [place] [id number] PCP - General 10/27/05 Shipping Technician Relationship Specialty Start Date End Date Barbara Charles MD [address] [place] [address] [place] [address] PCP - General 01/13/19 Team Status: Active Member Role Status Dates Dr. Ramiro Preciado MD Family Provider Active Dr. Barbara Charles MD Primary Care Provider Act yeyo Team Status: Inactive Member Role Status Dates Dr. Barbara Charles MD Primary Care Provider Act yeyo Dr. Bentley Hylton , DO Emergency Provider Active Team Status: Inactive Member Role Status Dates Dr. Barbara Charles MD Primary Care Provider Act yeyo Dr. Bentley Hylton DO Attending Provider, Emergency P manolo Active Team Status: Inactive Member Role Status Dates Dr. Barbara Charles MD Primary Care Provider Act yeyo Dr. Rigo Henley MD Emergency Provider Active Shipping Technician Relationship Specialty Start Date End Date Ramiro Preciado MD [address] [place] [address] PCP - General 10/27/05 Shipping Technician Relationship Specialty Start Date End Date Barbara Charles MD [address] [place] [id number] PCP - General Family Medicine 03/29/23 Shipping Technician Relationship Specialty Start Date End Date Barbara Charles MD [address] [phone] PCP - General Family Medicine 02/06/24 Goals (unrecognized section and content) Goals may be documented in a n alternate sectionGoals may be documented in an alternate section FOR RECORDS PERTAINING TO PATIENTS WHO ARE [...] BE BASED ON THE PRIMARY CLINICAL RECORDS. [facility] [employer] [facility]. provides no warranty or guarantee of the accuracy or completeness of information in this document.
== END 2025-02-14 17:17 | disposition home or self-care (01) ==
PROVIDERS: Emergency Provider Emergency Medicine; PCP Family Medicine; Visit Provider Emergency Medicine
DX: R07.9 Chest pain, unspecified (principal); R11.0 Nausea; I10 Essential (primary) hypertension; R42 Dizziness and giddiness; R51.9 Headache, unspecified; G47.33 Obstructive sleep apnea (adult) (pediatric); Z99.89 Dependence on other enabling machines and devices; Z90.49 Acquired absence of other specified parts of digestive tract
CPT/HCPCS: 70450; 71046; 80048; 84484; 85025; 85610; 85730; 87631; 93005; 96361; 96374; 96375; 99285; A4216; J2405